=== PATIENT | male | born 1935 | race Caucasian/White ===

== ENCOUNTER 2018-03-17 09:52 | Inpatient (IN) | payer OTHER, MEDICARE ==
--- NOTE | 2018-03-17 10:52 | R.PREADM ---
SCREENING DATE AND TIME 03/17/2018 09:59 (CLAIM APPROVER) ANTICIPATED REHAB ADMISSION DATE 03/19/2018 REFERRING FACILITY [facility] REFERRAL DATE AND TIME 03/17/2018 09:59 (CLAIM APPROVER) ACUTE ADMIT DATE 03/06/2018 Previous Rehabilitation(s): No. ACUTE WELLNESS ASSISTANT/DC RAÚL Payne REFERRING PHYSICIAN [facility] REHAB FACILITY [facility] CLINICAL LIAISON Hitesh Miranda PHYSICIAN REVIEWER Dr. Bear Sousa M.D. MR# [id number] NAME MUNIR CHAO ADDRESS [address] [place] [address] PHONE [facility] [id number] DATE OF 1935 AGE 82 SSN# [id number] GENDER male MARITAL STATUS RACE white ADMIT FROM 02 - [facility] PRE-HOSPITAL LIVING SETTING 01 - Home (private home/apt. board/care, assisted living, assisted, transitional living) HOME TYPE AND DETAILS Type of home: single family house # of steps to enter the residence: 0 # of steps within the residence: 0 # of levels in the residence: 1 PRE-HOSPITAL LIVING WITH Family/Relatives FAMILY SUPPORT Yes PHONE PRIMARY FAMILY CONTACT ON ADM.? no IS PRIMARY FAMILY CONTACT AUTH. REP.? no PHONE 1ST CONTACT ON ADM. no IS 1ST CONTACT AUTH. REP.? no PHONE 2ND CONTACT ON ADM.? no PATIENT EMPLOYMENT STATUS Retired (for age) PATIENT EMPLOYER No Employer PAYOR INFORMATION: 1ST PAYOR NAME Medicare 1ST PAYOR PHONE 1ST PAYOR INJURY/ILLNESS DUE TO ACCIDENT? No ANOTHER LIBERTARIAN RESPONSIBLE? 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 is a 82 yo Right-handed white male. On 03/06/2019 he was admitted to [facility] with diagnosis Spinal stenosis. 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 Pre-morbidly, Pt. was independent/mod-I in Self-Care, Sphincter Control, Transfers Control, and Locom otion; and he had good Sphincter Control. Currently, he has deficits of Balance, Self-Care, Endurance, Safety Awareness, Transfers Control, Com munication, Social Cognition, and Locomotion. Pt. is now referred to [facility] for acute in-patient rehabilitation in order to maximize patient's functional independence in activities of daily living, strength, ROM, and mobi lity. Patient has realistic goal of being discharged at assistance level 6-Laura to reside at Home with Fam francine/Relatives. PAST MEDICAL HISTORY allergic anesthesia arthritis back pain does not excerise falls frequently HEARING DEFICIT hx of guillain-barre syndrome hyperlipidemia pneumonia presence of stent of coronary artery prostate enlargement stroke PAST SURGICAL HISTORY: blepharoplasty bronchoscopy eye surgery fusion, spine, lumbar, interbody, transforaminal approach mediastinoscopy neck surgery (4titanium screws) SHOULDER SURGERY stent 4 heart stents tonsillectomy MEDICATION ALLERGIES: LEVOFLOXACIN INFLUENZA VIRUS VACCINE codeine ENVIRONMENTAL ALLERGIES: - Substance Allergies None Known - Other Allergies None Known CODE STATUS: Full code WEIGHT/HEIGHT/BMI: WEIGHT 159 lbs HEIGHT 5' 6" BMI 25.7 DIET: - Diet Type Regular - Diet - Solid Texture Regular - Diet - Liquid Texture Regular - Tube Feed N/A SKIN DIAGRAM: Incision on Back; extent - small; stage - NS(Not Stageable). Treatment - Per Physician's Orders. REVIEW OF SYSTEMS: - Gen Alert and awake Lying in bed No apparent distress Oriented to: person, time, and place - Vital Signs Vital signs stable, afebrile - CVS RRR VITAL SIGNS Temperature: 98.7 F SBP/DBP: 135/73 Pulse: 75 Resp: 20 Vital signs stable, afebrile CURRENT SPHINCTER CONTROL: Pre-hospital bladder status: continent # of bladder accidents in the last 7 days prior to screenin Pre-hospital bowel status: continent # of bowel accidents in the last 7 days prior to screenin Last Bowel Movement Date: 03/17/2018 DETAILED CURRENT FUNCTIONAL STATUS: - Bladder accident frequency: Ind - No accidents in the past 7 days - Bowel accident frequency: Ind - No accidents in the past 7 days - Walking score based on distance walked: 2(1308ft) FUNCTIONAL STATUS: - Self-Care A. Eating Ind sup B. Grooming Laura sup C. Bathing Laura sup D. Dressing - Upper Laura Umesh E. Dressing - Lower Laura modA F. Toileting Laura Ind - Sphincter Control G: Bladder control Ind Dep H: Bowel control Ind Dep - Transfers Control I. Bed/Chair/Wheelchair Laura modA J. Toilet Laura modA K. Tub/Shower Laura modA - Locomotion L. Walk/Wheelchair (B) Laura modA M. Stairs sup ADNO - Communication N. Comprehension (B) Umesh modA O. Expression (B) sup sup - Social Cognition P. Social Interaction sup sup Q. Problem Solving sup Umesh R. Memory Umesh Umesh - Endurance Fair - Balance Poor - Safety Awareness Poor CURRENT FUNC. DEFICITS: Balance, Self-Care, Endurance, Safety Awareness, Transfers Control, Communication, Social Cognition, and Locomotion THERAPY NOTES FROM ACUTE CARE: Attached. SPECIAL NEEDS: - Safety Concerns Skin breakdown precautions needed due to skin breakdown risk PATIENT NEEDS ACTIVE AND ONGOING THERAPEUTIC INTERVENTION OF MULTIPLE THERAPY DISCIPLINES, INCLUDING: - Orthotics/Prosthetics Orthotic Evaluation. Splinting/Casting. - Occupational Therapy Evaluate and Treat. - Physical Therapy Evaluate and Treat. PATIENT NEEDS CLOSE MEDICAL SUPERVISION BY A REHABILITATION PHYSICIAN FOR: Bowel and Bladder Management Coordination of Treatment Team Wound Care PATIENT REQUIRES 24X7 REHAB NURSING FOR MEDICAL AND FUNCTIONAL MGT. OF THE FOLLOWING DEFICITS: ADL's Ambulation Bowel and Bladder Management Cognition Communication Disease Management Medication Management Patient/Family Education Providing Safe Environment Skin Integrity Transfers PATIENT REQUIRES INTENSIVE, COORDINATED INTERDISCIPLINARY APPROACH TO REHAB: Arranging Home Equipment/Services Discharge Planning Family Intervention/Training Medical Genetics Director/Case Management PATIENT REHAB POTENTIAL: Expected level of measurable improvement will be of a practical value to patient's functional capacit y or adaptations to impairments Has a viable Discharge Plan Medically appropriate; condition is sufficiently stable to participate in intensive rehab program Patient is able and expected to receive 3 hours of individualized therapy daily on at least 5 of ever y 7 days Patient's prognosis for significant practical improvement within a reasonable period of time appears Good DISCHARGE PLAN: - Estimated Length of Stay (days) 16. - Consensus on plan Discharge plan has been discussed with primary caregiver. Patient/Family is in agreement with the ewelina n. Primary caregiver is in agreement with the plan. - Patient/Family Goals Return home with assistance. - Planned Living Setting Upon Discharge Home, to live with Family/Relatives. Transitional Living. RECOMMENDED CARE LEVEL: IRF RECOMMENDATION DETAILS: Recommended Admission to Comprehensive Rehabilitation Program to Increase Functional [place] SCREENER'S COMPLETENESS CONFIRMATION: - Screening Confirmation The patient data collection on this preadmission screening form is finished PHYSICIANS REVIEW AND ADMISSION DETERMINATION Admit - Based on my review of the Pre-Admission Screening results, in my medical judgment and experie nce, I concur with the findings and recommend admission to [facility], as this patient requires an IRF level of care. SIGNATURE PANEL: Clinical Liaison - [electronically] signed by Debi Nguyen on 03/17/2018 at 10:25 (CLAIM APPROVER) Clinical Liaison - [electronically] signed by Hitesh Miranda PT on 03/17/2018 at 10:39 (CLAIM APPROVER) Physician Reviewer - [electronically] signed by Dr. Bear Sousa M.D. on 03/17/2018 at 10:51 (CLAIM APPROVER )
[2018-03-17] MEDS ORDERED: CETIRIZINE HCL 5 MG TABLET PO PRN (18:40)
--- OUTSIDE RECORDS SUMMARY | 2018-03-17 18:40 | XMS REPORT | Continuity of Care Document ---
:1935 Author Organization Interface Problems Problem Status Onset Date Classification Date Comments Source Reported Medications Medication Details Route Status Patient Ordering Order Source Instructions Provider Date Allergies, Adverse Reactions, Alerts Substance Category Reaction Severity Reaction Status Date Comments Source type Reported Immunizations Immunization Date Given Site Status Last Updated Comments Source Results Order Results Value Reference Date Interpretation Comments Source Name Range Vital Signs Vital Sign Value Date Comments Source Encounters Location Location Encounter Encounter Reason Attending ADM DC Status Source Details Type Number For Provider Date Date Visit Outpatient [id number] RONNELL 06/24 Active [facility] [place] Outpatient [id number] RONNELL 11/05 Active [facility] [place] Outpatient [id number] RONNELL 11/05 Active [facility] [place] Outpatient [id number] RONNELL 12/23 Active [facility] [place] Out[place] [id number] RONNELL 02/04 Active [facility] [place] Procedures Procedure Code Date Perfomer Comments Source
--- OUTSIDE RECORDS SUMMARY | 2018-03-17 18:40 | XMS REPORT | Clinical Summary ---
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 coated tablet atorvastatin Take 80 mg by 0 Active (LIPITOR) 40 MG mouth daily. tablet tamsulosin (FLOMAX) Take 0.4 mg by 0 Active 0.4 mg mouth daily. capsule,extended release 24hr clopidogrel Take 75 mg by 0 Active (PLAVIX) 75 mg mouth daily. tablet CYANOCOBALAMIN, Take by mouth. 0 Active VITAMIN B-12, (VITAMIN B-12 ORAL) dutasteride Take 0.5 mg by 0 Active (AVODART) 0.5 mg mouth daily. capsule cholecalciferol, Take by mouth 0 Active vitamin D3, daily. (VITAMIN D3 ORAL) MAGNESIUM OXIDE Take by mouth 0 Active ORAL daily. traMADol (ULTRAM) Take 50 mg by 0 Active 50 mg tablet mouth every 8 (eight) hours as needed for moderate pain. gabapentin Take 1 tablet 90 tablet 0 04/15/19 Active (NEURONTIN) 600 mg (600 mg total) by 9 19 tablet mouth 3 (three) times a day for 30 days. ondansetron Infuse 2 mL (4 mg 20 mL 0 Active (ZOFRAN) 4 mg/2 mL total) into a 9 injection venous catheter every 8 (eight) hours as needed for nausea or vomiting. ondansetron ODT Take 1 tablet (4 0 04/15/19 Active (ZOFRAN-ODT) 4 MG mg total) by 19 disintegrating mouth every 8 tablet (eight) hours as needed for nausea or vomiting for up to 30 days. cetirizine (ZyrTEC) Take 1 tablet (5 0 03/16/19 Active 5 MG tablet mg total) by 9 20 mouth daily as needed for allergies. ipratropium-albuter Take 3 mL by 0 Active ol (DUO-NEB) nebulization 9 0.5-2.5 mg/mL every 6 (six) nebulizer hours while awake. guaiFENesin Take 1 tablet 0 Active (MUCINEX) 600 mg (600 mg total) by 9 tablet extended mouth 2 (two) release 12hr times a day. enoxaparin Inject 0.4 mL (40 0 Active (LOVENOX) 40 mg/0.4 mg total) under 9 mL syringe the skin daily. bisacodyl Take 1 tablet (5 30 tablet 0 04/15/19 Active (DULCOLAX) 5 mg EC mg total) by 9 19 tablet mouth daily as needed for constipation for up to 30 days. naloxone (NARCAN) Infuse 0.5 mL 1 mL 0 Active 0.4 mg/mL injection (0.2 mg total) 9 into a venous catheter once as needed for respiratory depression (as needed for RR rate 8 per minute). pantoprazole Take 1 tablet (40 0 Active (PROTONIX) 40 MG EC mg total) by 9 tablet mouth daily. methocarbamol Take 1 tablet 0 04/16/19 Active (ROBAXIN) 500 MG (500 mg total) by 9 19 tablet mouth every 8 (eight) hours as needed for muscle spasms for up to 30 days. sodium chloride 1 Take 2 tablets (2 120 tablet 11 03/17/19 Active gram tablet g total) by mouth 11 27 2 (two) times a day with meals. HYDROcodone-acetami Take 1 tablet by 0 03/27/19 Active nophen (NORCO) mouth every 4 9 19 10-325 mg per (four) hours as tablet needed for moderate pain for up to 10 days. Max Daily Amount: 6 tablets carvedilol (COREG) Take 3.125 mg by 0 03/06/20 Discontinued 3.125 MG tablet mouth nightly. 18 gabapentin Take 1,800 mg by 0 02/28/20 Discontinued (NEURONTIN) 300 mg mouth 3 (three) 18 capsule times a day. [address] 1 patch on 0 02/28/20 Discontinued (DURAGESIC) 25 the skin every 18 mcg/hr third day. GABAPENTIN ORAL Take 900 mg by 0 03/17/19 Discontinued mouth 3 (three) 19 times a day. Takes 2--900mg capsules TID hydrocodone/acetami Take by mouth 0 03/17/19 Discontinued nophen (NORCO ORAL) every 8 (eight) 19 hours as needed. sodium chloride 1 Take 1 tablet (1 90 tablet 0 03/17/19 Discontinued gram tablet g total) by mouth 9 19 3 (three) times a day with meals for 7 days. methocarbamol Take 1 tablet 90 tablet 0 03/17/19 Discontinued (ROBAXIN) 500 MG (500 mg total) by 9 19 tablet mouth every 8 (eight) hours as needed for muscle spasms for up to 30 days. 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 03/06/2018 - Hospital Encounter General Internal Etta, Degenerative lumbar 03/17/2018 Medicine Gil spinal stenosis MD Ruby 02/27/2018 Pre-Admit Testing Pre-Admission Etta, Preop testing Appointment Testing Gil (Primary Dx) MD Ruby 02/09/2018 Hospital Encounter Radiology [place], Lumbar radiculopathy Gil Beltran MD 02/09/2018 Hospital Encounter Radiology [place], Lumbar radiculopathy Gil Beltran MD 01/26/2018 Transcribe Orders Radiology [place], Lumbar radiculopathy Gil (Primary Dx) MD Ruby 01/08/2018 Hospital Encounter Radiology [place], Lumbar radiculopathy Gil Beltran MD 01/08/2018 Hospital Encounter Radiology [place], Radiculopathy, Gil unspecified spinal MD Ruby [facility] 01/08/2018 Transcribe Orders Radiology [place], Lumbar radiculopathy Gil (Primary Dx) MD Ruby 01/08/2018 Transcribe Orders Access [place], Radiculopathy, Gil unspecified spinal MD Ruby [facility] (Primary Dx) 12/25/2017 Transcribe Orders Radiology [place], Lumbar radiculopathy Gil (Primary Dx) MD Ruby 07/01/2017 Hospital Encounter Radiology [place], Lumbar radiculopathy Gil Beltran MD 07/01/2017 Transcribe Orders Access [place], Betsy Layne MD Ruby 07/01/2017 Transcribe Orders Access [place], Lumbar radiculopathy Betsy Layne (Primary Dx) MD Ruby 04/02/2017 Hospital Encounter Radiology [place], Lumbar radiculopathy Betsy Laynealphonso Beltran MD 04/02/2017 Transcribe Orders Access [place], Lumbar radiculopathy Gil (Primary Dx) MD Ruby after 03/16/2017 Family History Medical History Relation Name Comments Emphysema Brother Heart disease Brother Cerebral aneurysm Father Emphysema Mother Relation Name Status Comments Brother Father (Age 52) Mother (Age 87) Social History Tobacco Use Types Packs/Day Years Used Date Former Smoker 1 Quit: 02/21/1973 Smokeless Tobacco: Former User Quit: 2005 Alcohol Use Drinks/Week oz/Week Comments Yes occasionally Sex Assigned at Date Recorded Not on file Job Start Date Occupation Industry Not on file Not on file Not on file Travel History Travel Start Travel End No recent travel history available. Last Filed Vital Signs Vital Sign Reading Time Taken Blood Pressure 105/54 03/17/2018 3:00 PM SLIP MIXER Pulse 96 03/17/2018 3:00 PM SLIP MIXER Temperature 37.2 C (98.9 F) 03/17/2018 7:48 AM SLIP MIXER Respiratory Rate 17 03/17/2018 3:00 PM SLIP M[facility]ER Oxygen Saturation 97% 03/17/2018 3:00 PM SLIP MIXER Inhaled Oxygen Concentration - - Weight 72.4 kg (159 lb 11.2 oz) 03/06/2018 5:25 AM SLIP MIXER Height 167.6 cm (5' 6") 03/06/2018 5:25 AM SLIP MIXER Body Mass Index 25.78 03/06/2018 5:25 AM SLIP MIXER Plan of Treatment Health Maintenance Due Date Last Done Comments SHINGLES VACCINES (1 of 2) 12/19/1985 PNEUMOCOCCAL POLYSACCHARIDE VACCINE AGE 65 AND OVER 12/19/2000 PNEUMOCOCCAL-13 12/19/2000 INFLUENZA VACCINE 10/08/2017 Implants Implanted Type Area Karate Teacher Device Shelf Model / Serial / Identifier Expiration Lot Date System Spine Selnt For Dural Selng Exact 5ml Duraseal - [id number] Cardiovascular N/A: INTEGRA 03/09/2019 [id number] / Implanted: Qty: 1 on 03/06/2018 by Gil Quiles MD Implants N/ A LIFESCIENCE / NEURO [id number] Kit Bone Grft Lmbr Tprd 2.8ml Sm Infuse - [id number] Human Tissue N/A: MEDTRONIC SPINAL 05/07/2018 [id number] / Implanted: Qty: 1 on 02/04/2017 by Gil Quiles MD Implants N/ A AND BIOLOGICS / [id number] Kit Putty Bone 1.5ml Mastergraft - [id number] Human Tissue N/A: MEDTRONIC SPINAL 03/09/2020 [id number] / Implanted: Qty: 1 on 02/04/2017 by Gil Quiles MD Implants N/ A AND BIOLOGICS / [id number] Drafton Dbm Orthoblend Small Defect 5cc - [id number] - [id number] Human Tissue N/A: MEDTRONIC SPINAL 07/01/2018 [id number] / Implanted: Qty: 1 on 02/04/2017 by Gil Quiles MD Implants N/ A AND BIOLOGICS [id number] / [id number] Graft Bone Tissue Ros Anguiano 10.6 - [id number] - [id number] Human Tissue N/A: MUSCULOSKELETAL 11/14/2019 [id number] / Implanted: Qty: 1 on 03/06/2018 by Gil Quiles MD Implants N/ A TRANSPLANT [id number] / FOUNDATION LOT NA Bone Graft Magnifuse Sc 1 X 10cm - [id number] - [id number] Human Tissue N/A : MEDTRONIC SPINAL 11/20/2019 [id number] / Implanted: Qty: 1 on 03/06/2018 by Gil Quiles MD Implants N/ A AND BIOLOGICS [id number] / LOT NA Kit Bone Grft Lmbr Tprd 2.8ml Sm Infuse - [id number] Human Tissue N/A: MEDTRONIC SPINAL 06/07/2018 [id number] / Implanted: Qty: 1 on 03/06/2018 by Gil Quiles MD Implants N/ A AND BIOLOGICS / [id number] Spacer [id number] Elevate X-Francesca 28x8mm - [id number] [id number] IMPLANT N/A: MEDTRONIC 09/05/2024 [id number] / Implanted: Qty: 1 on 02/04/2017 by Gil Quiles MD DEVICES N/A SOFAMOR DANEK / [id number] 30mm Capped George 4.75mm Ccm - [id number] IMPLANT N/A: MEDTRONIC [id number] / Implanted: Qty: 2 on 02/04/2017 by Gil Quiles MD DEVICES N/A SOFAMOR DANEK / Cdh Fenestrated Screw 7.5mm &215; 40mm - [id number] [id number] IMPLANT N/A: MEDTRONIC [id number] / Implanted: 03/06/2018 (Quantity not on file) DEVICES N/A SOFAMOR DANEK / Screw [id number] Bs Cnmas 7.5x70 T/C - [id number] [id number] IMPLANT N/A: MEDTRONIC [id number] / Implanted: 03/06/2018 (Quantity not on file) DEVICES N/A SOFAMOR DANEK / Screw [id number] Bs Cnmas 7.5x80 T/C - [id number] [id number] IMPLANT N/A: MEDTRONIC [id number] / Implanted: 03/06/2018 (Quantity not on file) DEVICES N/A SOFAMOR DANEK / Mas [id number] 5.5/6.0 Fenstrtd 7.5x45 - [id number] IPM IMPLANT N/A: MEDTRONIC [id number] / Implanted: 03/06/2018 (Quantity not on file) DEVICES N/A SOFAMOR DANEK / George [id number] 5.5 Ccm Ns Curv 60mm - [id number] [id number] IMPLANT N/A: MEDTRONIC [id number] / Implanted: 03/06/2018 (Quantity not on file) DEVICES N/A SOFAMOR DANEK / Set Screw [id number] 5.5 Ti Ns Brk Off - [id number] Orthopedic N/A: MEDTRONIC [id number] / Implanted: 03/06/2018 (Quantity not on file) Trauma N/A SOFAMOR DANEK / Implants Set Screw 4.75 Solera Perc Ti - [id number] Spinal N/A: MEDTRONIC SPINAL [id number] / Implanted: Qty: 4 on 02/04/2017 by Gil Quiles MD Implants N/ A AND BIOLOGICS / Screw Mas 4.75 Ext Tab Yudith 7.5 X 45 - [id number] Spinal N/A: MEDTRONIC SPINAL [id number] / Implanted: Qty: 2 on 02/04/2017 by Gil Quiles MD Implants N/ A AND BIOLOGICS / Screw Mas 4.75 Ext Tab Yudith 7.5 X 35 - [id number] Spinal N/A: MEDTRONIC SPINAL [id number] / Implanted: Qty: 2 on 02/04/2017 by Gil Quiles MD Implants N/ A AND BIOLOGICS / Cement Screw Fenestrated - [id number] Spinal N/A: MEDTRONIC SPINAL 2018 [id number] / Implanted: 03/06/2018 (Quantity not on file) Implants N/A AND BIOLOGICS [id number] / [id number] Kit Hemostatic Matrix W/Thrombin 8ml Surgiflo - [id number] Surgical N/A: ETHICON US- 05/07/2018 [id number] / Implanted: Qty: 1 on 02/04/2017 by Gil Quiles MD Implants; N/ A / Expanders; [id number] Extenders; Surgical Wires Pin Surgcl Percutns 100mm - [id number] Surgical N/A: MEDTRONIC 11/15/2019 [id number] / Implanted: Qty: 1 on 02/04/2017 by Gil Quiles MD Implants; N/ A NAVIGATION / Expanders; StyroPower [id number] Extenders; Surgical Wires Ros Martin Md Bone Graft 5.3cc - [id number] - [id number] Surgical N/A: MUSCULOSKELETAL 01/09/2018 [id number] / Implanted: Qty: 1 on 02/04/2017 by Gil Quiles MD Implants; N/ A TRANSPLANT [id number] / Expanders; FOUNDATION [id number] Extenders; Surgical Wires Kit Hemostatic Matrix W/Thrombin 8ml Surgiflo - [id number] Surgical N/A: ETHICON US- 05/07/2018 [id number] / Implanted: Qty: 1 on 02/04/2017 by Gil Quiles MD Implants; N/ A / Expanders; [id number] Extenders; Surgical Wires Kit Hemostatic Matrix W/Thrombin 8ml Surgiflo - [id number] Surgical N/A: ETHICON US- 05/07/2018 [id number] / Implanted: Qty: 1 on 02/04/2017 by Gil Quiles MD Implants; N/ A / Expanders; [id number] Extenders; Surgical Wires Procedures Procedure Name Priority Date/Time Associated Comments Diagnosis SODIUM LEVEL Routine 03/17/2018 12:55 Results for this PM [facility]IP [facility]ER procedure are in the results section. ESTIMATED GFR Routine 03/17/2018 4:00 Results for this AM [facility] procedure are in the results section. CBC WITH PLATELET AND Routine 03/17/2018 4:00 Results for this DIFFERENTIAL AM [facility] procedure are in the results section. BASIC METABOLIC PANEL Routine 03/17/2018 4:00 Results for this AM [facility] procedure are in the results section. URINALYSIS SCREEN AND STAT 03/16/2018 2:58 Results for this MICROSCOPY, WITH REFLEX TO PM [facility]ER procedure are in CULTURE the results section. GRAM STAIN STAT 03/16/2018 2:58 Results for this PM [facility] procedure are in the results section. ESTIMATED GFR STAT 03/16/2018 7:35 Results for this AM [facility] procedure are in the results section. BASIC METABOLIC PANEL STAT 03/16/2018 7:35 Results for this AM [facility] procedure are in the results section. BETA TRANSFERRIN LEVEL STAT 03/13/2018 11:17 Results for this AM [facility] procedure are in the results section. XR LUMBAR SPINE 2 OR 3 VW Routine 03/12/2018 1:44 Results for this PM [facility] procedure are in the results section. CT CHEST WO CONTRAST STAT 03/10/2018 8:46 Results for this PM [facility] procedure are in the results section. ESTIMATED GFR Routine 03/10/2018 3:32 Results for this AM [facility] procedure are in the results section. B NATRIURETIC PEPTIDE Routine 03/10/2018 3:32 Results for this AM [facility] procedure are in the results section. HC COMPLETE BLD COUNT Routine 03/10/2018 3:32 Results for this W/AUTO DIFF AM [facility] procedure are in the results section. BASIC METABOLIC PANEL Routine 03/10/2018 3:32 Results for this AM [facility] procedure are in the results section. XR CHEST 1 VW PORTABLE STAT 03/09/2018 12:10 Results for this PM [facility] procedure are in the results section. ESTIMATED GFR Routine 03/08/2018 1:15 Results for this AM [facility] procedure are in the results section. BASIC METABOLIC PANEL Routine 03/08/2018 1:15 Results for this AM [facility] procedure are in the results section. HC COMPLETE BLD COUNT Routine 03/08/2018 1:13 Results for this W/AUTO DIFF AM [facility] procedure are in the results section. TRANSFUSE RED BLOOD CELLS Routine 03/08/2018 12:19 AM [facility]ER TROPONIN Timed 03/08/2018 12:00 Results for this AM [facility] procedure are in the results section. URINALYSIS SCREEN AND Routine 03/07/2018 7:40 Results for this MICROSCOPY, WITH REFLEX TO PM [facility] procedure are in CULTURE the results section. URINE CULTURE Routine 03/07/2018 7:40 Results for this PM [facility] procedure are in the results section. GRAM STAIN Routine 03/07/2018 7:40 Results for this PM [facility] procedure are in the results section. TROPONIN Timed 03/07/2018 6:21 Results for this PM [facility] procedure are in the results section. ECG 12-LEAD STAT 03/07/2018 9:30 Results for this AM [facility] procedure are in the results section. PREPARE RBC Timed 03/07/2018 8:26 Results for this AM [facility] procedure are in the results section. PREPARE RBC Timed 03/07/2018 8:26 Results for this AM [facility] procedure are in the results section. ESTIMATED GFR STAT 03/07/2018 8:26 Results for this AM [facility] procedure are in the results section. TYPE AND SCREEN Timed 03/07/2018 8:26 Results for this AM [facility] procedure are in the results section. BASIC METABOLIC PANEL STAT 03/07/2018 8:26 Results for this AM [facility] procedure are in the results section. TROPONIN STAT 03/07/2018 8:26 Results for this AM [facility] procedure are in the results section. HC COMPLETE BLD COUNT Routine 03/07/2018 3:55 Results for this W/AUTO DIFF AM [facility] procedure are in the results section. ESTIMATED GFR Routine 03/07/2018 12:00 Results for this AM [facility] procedure are in the results section. BASIC METABOLIC PANEL Routine 03/07/2018 12:00 Results for this AM [facility] procedure are in the results section. SURGICAL PATHOLOGY REQUEST Routine 03/06/2018 3:41 Results for this PM [facility] procedure are in the results section. THROMBOELASTOGRAPH Routine 03/06/2018 2:58 Results for this PM [facility] procedure are in the results section. GLUCOSE LEVEL, SYRINGE STAT 03/06/2018 1:01 Results for this PM [facility] procedure are in the results section. MAGNESIUM LEVEL STAT 03/06/2018 1:01 Results for this PM [facility] procedure are in the results section. IONIZED CALCIUM, ARTERIAL STAT 03/06/2018 1:01 Results for this PM [facility] procedure are in the results section. HEMOGLOBIN, SYRINGE STAT 03/06/2018 1:01 Results for this PM [facility] procedure are in the results section. POTASSIUM, SYRINGE STAT 03/06/2018 1:01 Results for this PM [facility] procedure are in the results section. SODIUM LEVEL, SYRINGE STAT 03/06/2018 1:01 Results for this PM [facility] procedure are in the results section. ARTERIAL BLOOD GAS STAT 03/06/2018 1:01 Results for this PM [facility] procedure are in the results section. LACTIC ACID, SYRINGE STAT 03/06/2018 1:01 Results for this PM [facility] procedure are in the results section. THROMBOELASTOGRAPH STAT 03/06/2018 11:51 Results for this AM [facility] procedure are in the results section. OR FL < 1 HOUR Routine 03/06/2018 11:45 Results for this AM [facility] procedure are in the results section. OR FL > 1 HOUR Routine 03/06/2018 11:10 Results for this AM [facility] procedure are in the results section. WI AN ELECTIVE Routine 03/06/2018 9:41 ENDOTRACHEAL AIRWAY AM [facility] Procedure Note - Alison Hunt CRNA - 03/06/2018 9:41 AM SLIP [facility]ER Airway Date/Time: 03/06/2018 7:19 AM Performed by: Alison Hunt CRNA Authorized by: Fabricio Schaefer MD Location: OR Urgency: Elective Difficult Airway: No Anesthesiologist: Fabricio Schaefer MD Performed by: anesthesiologist Preoxygenated with 100% O2: Yes C-spine Precautions Maintained Throughout: No Mask Ventilation: Easy mask (With 100 mm OPA) Final Airway Type: Endotracheal airway Final Endotracheal Airway: ETT Cuffed: Yes Technique Used: Direct laryngoscopy Devices/Methods Used in Placement: Intubating stylet Insertion Site: Oral Blade Type: Reed Laryngoscope Blade/Videolaryngoscope Blade Size: 2 ETT Size (mm): 8.0 Cuff at minimum occlusion pressure: Yes Measured from: Gums ETT to Gums (cm): 24 Placement Verified by: CO2 detection, direct visualization and equal breath sounds Rapid Sequence Induction (RSI): No Modified RSI: No Number of Attempts at Approach: 2 Eyes taped shut prior to airway manipulation. DLX 1 per FURNACE MECHANIC unsuccessful, DL X1 per MDA successful. TRANSFUSE RED BLOOD CELLS Routine 03/06/2018 9:22 AM [facility]ER MAGNESIUM LEVEL STAT 03/06/2018 9:18 AM [facility]IP M[facility]ER IONIZED CALCIUM, ARTERIAL STAT 03/06/2018 9:18 AM SLIP MIXER GLUCOSE LEVEL, SYRINGE STAT 03/06/2018 9:18 AM SLIP MIXER HEMOGLOBIN, SYRINGE STAT 03/06/2018 9:18 AM SLIP MIXER SODIUM LEVEL, SYRINGE STAT 03/06/2018 9:18 AM SLIP MIXER LACTIC ACID, SYRINGE STAT 03/06/2018 9:18 AM SLIP MIXER POTASSIUM, SYRINGE STAT 03/06/2018 9:18 AM SLIP MIXER ARTERIAL BLOOD GAS STAT 03/06/2018 9:18 AM SLIP MIXER GLUCOSE LEVEL, SYRINGE STAT 03/06/2018 8:43 AM SLIP MIXER IONIZED CALCIUM, ARTERIAL STAT 03/06/2018 8:43 AM SLIP MIXER SODIUM LEVEL, SYRINGE STAT 03/06/2018 8:43 AM SLIP MIXER HEMOGLOBIN, SYRINGE STAT 03/06/2018 8:43 AM SLIP MIXER POTASSIUM, SYRINGE STAT 03/06/2018 8:43 AM SLIP MIXER ARTERIAL BLOOD GAS, STAT 03/06/2018 8:43 AM [facility]IP M[facility]ER Results for this CORRECTED procedure are in the results section. ARTERIAL LINE Routine 03/06/2018 7:56 AM [facility]ER Procedure Note - Fabricio Schaefer MD - 03/06/2018 7:56 AM [facility]IP M[facility]ER Arterial line Performed by: Fabricio Schaefer MD Authorized by: Fabricio Schaefer MD Start Time: 03/06/2018 7:24 AM End Time: 03/06/2018 7:30 AM Pre-procedure: patient identified, IV checked, site and side verified, risks and benefits discussed, procedure verified, surgical consent complete, patient position confirmed, monitors and equipment checked and pre-op evaluation complete MSBT: antiseptic used, all elements of maximal sterile barrier technique followed, hand hygiene performed, cap/gown used by other personnel and solutions labeled TIme Out Performed: 03/06/2018 7:24 AM Indications: Indications: multiple ABGs and hemodynamic monitoring Anesthesia: Anesthesia: General Procedure Details: Arterial Line placement: Placed post induction Line placement site: Radial Line placement side: Left Arterial line gauge: 20 G Number of attempts: 2 Ultrasound guidance used: No Post-procedure: Post-procedure: Sterile dressing applied Post procedure circulation, sensation, movement: Normal and unchanged Patient tolerance: Patient tolerated the procedure well with no immediate complications XR LUMBAR SPINE Routine 03/06/2018 7:55 AM Results for this 1 VW SLIP MIXER procedure are in the results section. LAMINECTOMY, 03/06/2018 7:15 AM Degenerative lumbar LUMBAR SLIP MIXER spinal stenosis Case Notes PRONE POSITION, DR PARKER NIÑO SURGEON, [place] TABLE, O-ARM, STEALTH, ULTRASOUND, DOUGHNUT HEADREST, SOLERA (MEDTRONIC, INFUSE (MEDTRONIC, EMG NEURO MONOTORING , REQ BLOCKER POLISHING, DR PARKER ABAD Special Needs PRONE POSITION, DR PARKER NIÑO SURGEON, [place] TABLE, O-ARM, STEALTH, ULTRASOUND, DOUGHNUT HEADREST, SOLERA (MEDTRONIC, INFUSE (MEDTRONIC, EMG NEURO MONOTORING , REQ BLOCKER POLISHING, DR PARKER ABAD FUSION, SPINE, LUMBAR, 03/06/2018 7:15 AM SLIP MIXER Degenerative lumbar spinal POSTERIOR APPROACH stenosis Case Notes PRONE POSITION, DR PARKER NIÑO SURGEON, [place] TABLE, O-ARM, STEALTH, ULTRASOUND, DOUGHNUT HEADREST, SOLERA (MEDTRONIC, INFUSE (MEDTRONIC, EMG NEURO MONOTORING , REQ BLOCKER POLISHING, DR PARKER ABAD Special Needs PRONE POSITION, DR PARKER NIÑO SURGEON, [place] TABLE, O-ARM, STEALTH, ULTRASOUND, DOUGHNUT HEADREST, SOLERA (MEDTRONIC, INFUSE (MEDTRONIC, EMG NEURO MONOTORING , REQ BLOCKER POLISHING, DR PARKER ABAD ECG 12-LEAD Routine 02/27/2018 1:43 Preop testing Results for this PM [facility] procedure are in the results section. PREPARE RBC Routine 02/27/2018 1:30 Results for this PM [facility] procedure are in the results section. ESTIMATED GFR Routine 02/27/2018 1:30 Results for this PM [facility] procedure are in the results section. BASIC METABOLIC PANEL Routine 02/27/2018 1:30 Preop testing Results for this PM [facility]ER procedure are in the results section. HC COMPLETE BLD COUNT Routine 02/27/2018 1:30 Preop testing Results for this W/AUTO DIFF PM [facility]ER procedure are in the results section. TYPE AND SCREEN Routine 02/27/2018 1:30 Preop testing Results for this PM [facility]ER procedure are in the results section. PARTIAL THROMBOPLASTIN Routine 02/27/2018 1:30 Preop testing Results for this TIME (PTT) PM [facility]ER procedure are in the results section. PROTHROMBIN TIME WITH Routine 02/27/2018 1:30 Preop testing Results for this INR PM [facility] M[facility]ER procedure are in the results section. CT POST MYELOGRAM Routine 02/09/2018 11:02 Lumbar radiculopathy Results for this LUMBAR AM [facility] procedure are in the results section. IR MYELOGRAM LUMB INCL Routine 02/09/2018 10:28 Lumbar radiculopathy Results for this INJ W S&I AM [facility]ER procedure are in the results section. XR LUMBAR SPINE Routine 01/08/2018 1:20 Radiculopathy, Results for this COMPLETE W BENDING PM CDT unspecified spinal procedure are in region the results section. XR SPINE SCOLIOSIS 2-3 Routine 01/08/2018 1:12 Lumbar radiculopathy Results for this VIEWS PM CDT procedure are in the results section. MRI LUMBAR SPINE WO Routine 01/02/2018 12:00 Lumbar radiculopathy Results for this CONTRAST PM CDT procedure are in the results section. XR LUMBAR SPINE 2 OR 3 Routine 07/01/2017 12:01 Lumbar radiculopathy Results for this VW PM CDT procedure are in the results section. XR LUMBAR SPINE 2 OR 3 Routine 04/02/2017 11:04 Lumbar radiculopathy Results for this VW AM [facility] procedure are in the results section. after 03/16/2017 Results Sodium level (03/17/2018 12:55 PM SLIP MIXER) Sodium 137 135 - 148 mEq/L [facility] Specimen Plasma specimen Performing Organization Address City/[facility] Centercode Phone Number [facility] DEPARTMENT OF PATHOLOGY AND [address] [place], [place] [phone] [address] [address] Estimated GFR (03/17/2018 4:00 AM SLIP MIXER)Only the most recent of7 resultswithin the time period is included. Estimated GFR 70 mL/min/1.[address] [facility] Comment: HOSPITAL CatergoryUnitsInterpretation G1 >=90 Normal or high G2 60-89Mildly decreased W8d20-94Xightt to moderately decreased V1q02-23Nnlgusfibw to severely decreased G4 15-29Severely decreased G5 <15Kidney failure The eGFR was calculated using the Chronic Kidney Disease Epidemiology Collaboration (CKD-EPI) equation. Interpretation is based on recommendations of the National Kidney Foundation-Kidney Disease Outcomes Quality Initiative (NKF-KDOQI) published in 2014. Specimen Plasma specimen Performing Organization Address City/[facility]/Zipcode Phone Number [facility] DEPARTMENT OF PATHOLOGY AND [address] [place] [address] [address] CBC with platelet and differential (03/17/2018 4:00 AM SLIP MIXER)Only the most recent of5 resultswithin the time period is included. WBC 18.69 (H) 4.50 - 11.00 k/uL [facility] RBC 3.69 (L) 4.40 - 6.00 m/uL [facility] HGB 10.5 (L) 14.0 - 18.0 g/dL [facility] HCT 33.3 (L) 41.0 - 51.0 % [facility] MCV 90.2 82.0 - 100.0 fL [facility] MCH 28.5 27.0 - 34.0 pg [facility] MCHC 31.5 31.0 - 37.0 g/dL [facility] RDW - SD 43.3 37.0 - 55.0 fL [facility] MPV 9.9 8.8 - 13.2 fL [facility] Platelet count 463 (H) 150 - 400 k/uL [facility] Nucleated RBC 0.00 /100 WBC [facility] Neutrophils 71.1 (H) 39.0 - 69.0 % [facility] Lymphocytes 16.3 (L) 25.0 - 45.0 % [facility] Monocytes 8.2 0.0 - 10.0 % [facility] Eosinophils 0.4 0.0 - 5.0 % [facility] Basophils 0.3 0.0 - 1.0 % [facility] Immature granulocytes 3.7 (H)Comment: 0.0 - 1.0 % [facility] "Immature [facility] granulocytes" (promyelocytes, myelocytes, metamyelocytes) Specimen Blood Performing Organization Address City/State/Zipcode Phone Number [facility] DEPARTMENT OF PATHOLOGY AND [address] [place], [place] [phone] [place] [phone] Basic metabolic panel (03/17/2018 4:00 AM SLIP MIXER)Only the most recent of7 resultswithin the time period is included. Sodium 132 (L) 135 - 148 mEq/L [facility] Potassium 4.4 3.5 - 5.0 mEq/L [facility] Chloride 98 98 - 112 mEq/L [facility] CO2 22 (L) 24 - 31 mEq/L [facility] Anion gap 12@ANIO 7 - 15 mEq/L [facility] BUN 31 (H) 8 - 23 mg/dL [facility] Creatinine 1.00 0.70 - 1.20 mg/dL [facility] Glucose 137 (H) 65 - 99 mg/dL [facility] Calcium 9.1 8.8 - 10.2 mg/dL [facility] Specimen Plasma specimen Performing Organization Address City/[facility] Centercode Phone Number [facility] DEPARTMENT OF PATHOLOGY AND [address] [place] [id number] [place] [phone] Urinalysis screen and microscopy, with reflex to culture (03/16/2018 2:58 PM SLIP MIXER)Only the most recent of2 resultswithin the time period is included. Specimen site Catheterized [facility] Color, UA Yellow [facility] Appearance, UA Clear [facility] Specific gravity, UA 1.023 1.001 - 1.035 [facility] pH, UA 5.0 5.0 - 8.5 [facility] Protein, UA Negative Negative [facility] Glucose, UA Negative Negative [facility] Ketones, UA Negative Negative [facility] Bilirubin, UA Negative Negative [facility] Blood, UA Moderate (A) Negative [facility] Nitrite, UA Negative Negative [facility] Urobilinogen, UA <2.0 <2.0 [facility] Leukocyte esterase, UA Trace (A) Negative [facility] WBC, UA 5 (H) 0 - 1 /HPF [facility] RBC, UA 17 (H) 0 - 5 /HPF [facility] Bacteria, UA Few None seen [facility] Yeast, UA None seen [facility] Yeast with pseudohyphae, UA None seen [facility] Hyaline casts, UA 4 /LPF [facility] Specimen Urine Performing Organization Address City/[facility] Centercode Phone Number [facility] DEPARTMENT OF PATHOLOGY AND [address] [place] [address] [address] Gram stain (03/16/2018 2:58 PM SLIP MIXER)Only the most recent of2 resultswithin the time period is included. Gram stain result No WBC's or organisms seen. [facility] Comment: Specimen Information Specimen Source: Urine Specimen Site: Catheterized Specimen Urine - Catheterized Performing Organization Address City/State/Zipcode Phone Number [facility] DEPARTMENT OF PATHOLOGY AND [address] [place] [address] Beta transferrin level (03/13/2018 11:17 AM SLIP MIXER) Beta-2 transferrin See below [facility] Comment: No beta-2 transferrin seen. Reviewed by Dr. Jesse Chavez MD. PhD. TRFB results called to and read back by DAVIAN Gonzalez/[email or web address] (name/location) at03/13/201817:38 (date/time) by Dr. Scott FUENTES,PhD. Specimen Fluid Performing Organization Address City/[facility]/Zipcode Phone Number [facility] DEPARTMENT OF PATHOLOGY AND [address] [place] [address] XR Lumbar Spine 2 Or 3 Vw (03/12/2018 1:44 PM SLIP MIXER)Only the most recent of3 resultswithin the time period is included. Narrative Performed At EXAMINATION:XR LUMBAR SPINE 2 OR 3 VW [facility] COMPARISON:March 06, 2018. CLINICAL HISTORY:L S-spine fusionfollow up COMMENTS:Frontal and lateral views of the lumbar spine are provided. FINDINGS:There are pedicle screws at L4 and L5 which connect to sacroiliac screws. There is disc spacer with metallic markers at L5-S1. There is cement in place at the L4 vertebral body. There is minimal anterior subluxation of L3 upon L4. There is mild spondylosis anteriorly in lumbar spine. There is mild curvature of the lower lumbar spine convex towards the left side. Posterior drain is noted. IMPRESSION:Postoperative change. [id number] Procedure Note Interface, Radiology Results Incoming - 03/12/2018 1:55 PM SLIP MIXER EXAMINATION: XR LUMBAR SPINE 2 OR 3 VW COMPARISON: March 06, 2018. CLINICAL HISTORY: L S-spine fusion follow up COMMENTS: Frontal and lateral views of the lumbar spine are provided. FINDINGS: There are pedicle screws at L4 and L5 which connect to sacroiliac screws. There is disc spacer with metallic markers at L5-S1. There is cement in place at the L4 vertebral body. There is minimal anterior subluxation of L3 upon L4. There is mild spondylosis anteriorly in lumbar spine. There is mild curvature of the lower lumbar spine convex towards the left side. Posterior drain is noted. IMPRESSION: Postoperative change. [id number] Performing Organization Address City/State/Zipcode Phone Number [facility] [address] [place] [address] CT Chest Wo Contrast (03/10/2018 8:46 PM SLIP MIXER) Narrative Performed At Examination:CT CHEST WO CONTRAST [facility] Clinical History: Shortness of breath, h o enlarged lymph nodes Comparison: None. Findings: CT scans are performed using radiation dose reduction techniques.Technical factors are evaluated and adjusted to ensure appropriate moderation of exposure.Automated dose management technology is applied to adjust radiation exposure while achieving a diagnostic quality image. CT scan of the chest was performed without intravenous contrast. Patient positioning slightly limits the study. The patient is lying on his right side. There is some dependent atelectasis is noted in the right upper lobe. No pleural effusion is seen. No pulmonary mass or nodule is seen. No mediastinal lymphadenopathy is seen. No pneumothorax is seen. The visualized upper abdomen shows gallstones in the gallbladder. Pancreas is slightly fatty replaced. The visualized bony structures shows no acute abnormality. IMPRESSION: 1. Right side dependent atelectasis. Otherwise no acute abnormality identified in the chest. 2. Cholelithiasis without CT evidence for cholecystitis. [facility]-[id number] Procedure Note Interface, Radiology Results Incoming - 03/10/2018 9:26 PM SLIP MIXER Examination: CT CHEST WO CONTRAST Clinical History: Shortness of breath, h o enlarged lymph nodes Comparison: None. Findings: CT scans are performed using radiation dose reduction techniques. Technical factors are evaluated and adjusted to ensure appropriate moderation of exposure. Automated dose management technology is applied to adjust radiation exposure while achieving a diagnostic quality image. CT scan of the chest was performed without intravenous contrast. Patient positioning slightly limits the study. The patient is lying on his right side. There is some dependent atelectasis is noted in the right upper lobe. No pleural effusion is seen. No pulmonary mass or nodule is seen. No mediastinal lymphadenopathy is seen. No pneumothorax is seen. The visualized upper abdomen shows gallstones in the gallbladder. Pancreas is slightly fatty replaced. The visualized bony structures shows no acute abnormality. IMPRESSION: 1. Right side dependent atelectasis. Otherwise no acute abnormality identified in the chest. 2. Cholelithiasis without CT evidence for cholecystitis. [facility]-[id number] Performing Organization Address City/[facility]/Zipcode Phone Number [facility] [address] [place] [address] B natriuretic peptide (03/10/2018 3:32 AM SLIP MIXER) BNP SEE COMMENT 0 - 100 pg/mL [facility] Comment: Footnote--------- Unable to perform testing, specimen is _QNS.Recollect requested for BNP_ (tests)._RN IKER RUVALCABA\\[id number] (name/location) notified by LSB_ (tech ID) at _ 03/10/201806:58 ___ (date/time).Credit issued. Specimen Blood Performing Organization Address City/[facility]/Zipcode Phone Number [facility] DEPARTMENT OF PATHOLOGY AND [address] [place] [address] GENOMIC MED[address] [address] XR Chest 1 Vw Portable (03/09/2018 12:10 PM SLIP MIXER) Narrative Performed At EXAMINATION:XR CHEST 1 VW PORTABLE [facility] CLINICAL HISTORY:Shortness of breath COMPARISON:None. IMPRESSION: There is marked volume loss of the right hemithorax with shift of the mediastinum to the right. Although this is accentuated by patient rotation, This has increased from a CT of the chest from June 13, 2016. Appears to be extensive volume loss in the right lower lobe with atelectasis or infiltrate in the right lower lobe. Diffuse emphysematous changes throughout the remainder the lungs Further evaluation CT of the chest is recommended Age related changes are present throughout the bony structures without evidence of a suspicious focal lesion. [facility]-[id number] Procedure Note Hm Interface, Radiology Results Incoming - 03/09/2018 12:17 PM SLIP MIXER EXAMINATION: XR CHEST 1 VW PORTABLE CLINICAL HISTORY: Shortness of breath COMPARISON: None. IMPRESSION: There is marked volume loss of the right hemithorax with shift of the mediastinum to the right. Although this is accentuated by patient rotation, This has increased from a CT of the chest from June 13, 2016. Appears to be extensive volume loss in the right lower lobe with atelectasis or infiltrate in the right lower lobe. Diffuse emphysematous changes throughout the remainder the lungs Further evaluation CT of the chest is recommended Age related changes are present throughout the bony structures without evidence of a suspicious focal lesion. [facility]-[id number] Performing Organization Address City/[facility] Centercode Phone Number [facility] [address] [place] [address] Transfuse RBC (03/08/2018 12:19 AM SLIP MIXER)Only the most recent of3 resultswithin the time period is included.Troponin (03/08/2018 12:00 AM SLIP MIXER)Only the most recent of3 resultswithin the time period is included. Troponin <0.30 0.00 - 0.30 ng/mL [facility] Comment: 0.30 - 1.49 ng/mlMay indicate increased risk of acute coronary syndrome. >=1.5 ng/mlConsistent with acute myocardial infarction. The diagnostic value of a single normal or non-diagnostic result is questionable.Serial samples at 2-6 hour intervals are required to rule out acute myocardial injury. Specimen Plasma specimen Performing Organization Address [facility] Centercode Phone Number [facility] DEPARTMENT OF PATHOLOGY AND [address] [place] [phone] Urine culture (03/07/2018 7:40 PM SLIP MIXER) Urine culture isolate No growth after 24 hours [facility] Comment: Specimen Information Specimen Source: Urine Specimen Site: Clean catch Specimen Urine Performing Organization Address [facility] Phone Number [facility] DEPARTMENT OF PATHOLOGY AND [address] [place] [address] ECG 12 lead (03/07/2018 9:30 AM SLIP MIXER)Only the most recent of2 resultswithin the time period is included. Ventricular rate 104 [facility] Atrial rate 104 [facility] WI interval 188 [facility] QRSD interval 88 [facility] QT interval 336 [facility] QTC interval 441 [facility] P axis 1 69 [facility] QRS axis 1 -18 [facility] T wave axis 75 [facility] EKG impression Sinus tachycardia-Septal infarct , age undetermined-Abnormal ECG-In automated comparison with ECG of 27-FEB-2018 13:43,-Septal infarct is now present-T wave inversion no longer evident in Inferior leads [facility] MUSE - Narrative Performed At Performing Organization Address City/[facility]/Zipcode Phone Number [facility] MUSE [address] [place] [address] Prepare RBC, 1 Units (03/07/2018 8:26 AM SLIP MIXER)Only the most recent of3 resultswithin the time period is included. Product name Apheresis Red Cell AS3 #2 LR [facility] Unit number [id number] [facility] Product code [id number] [facility] Dispense status Transfused [facility] Blood expiration date [facility] Blood type code 0600 [facility] Blood type A NEGATIVE [facility] Performing Organization Address [facility] Phone Number [facility] DEPARTMENT OF PATHOLOGY AND [address] [place] [address] GEN[address] [address] Type and screen (03/07/2018 8:26 AM SLIP MIXER)Only the most recent of2 resultswithin the time period is included. ABO grouping AB [facility] Rh type NEG [facility] Antibody screen (gel) NEG [facility] Specimen Blood Performing Organization Address [facility] Centercoct Phone Number [facility] DEPARTMENT OF PATHOLOGY AND [address] [place], [place] [phone] GENOMIC MEDICINE [address] [address] Surgical pathology request (03/06/2018 3:41 PM SLIP MIXER) [facility] DEPARTMENT OF PATHOLOGY AND GENOMIC MEDICINE Surgical pathology report See link below for PDF [facility] DEPARTMENT OF Lab Report PATHOLOGY AND GENOMIC MEDICINE Result status This is Final Report [facility] DEPARTMENT OF for [id number] PATHOLOGY AND GENOMIC MEDICINE Performing Organization Address [facility] Centercode Phone Number [facility] DEPARTMENT OF PATHOLOGY AND [address] [place], [place] [phone] [facility] MEDICINE Thromboelastograph (03/06/2018 2:58 PM SLIP MIXER)Only the most recent of2 resultswithin the time period is included. TEG R time 3.3 min [facility] TEG K time 1.2 min [facility] TEG angle 75.9 Deg [facility] TEG max amplitude 66.6 mm [facility] TEG coagulation index 3.60 Index [facility] TEG fibrinolysis/30 0.0 % [facility] Comment: OUTPATIENT CENTER Reference Ranges for TEG: Test: UnitsKaolin:Citrate Kaolin: Rmin 3.7-8.3 2.5- 7.5 Kmin 0.5-3.7 0.8- 2.8 AngleDeg 46.8-73.6 55.2-78.4 MA mm54.5-72.5 50.6-69.4 Gd/sc [id number] CI Index-3.0 - 3.0-3.0 - 3.0 LY30 % 0.0 - 7.5 0.0 - 7.5 Specimen description, TEG OTHER [facility] Sample type, TEG CK [facility] TEG SP time 3.2 min [facility] TEG G 9,956.8 d/sc [facility] Specimen Plasma specimen Performing Organization Address City/[facility] Centercoct Phone Number [facility] DEPARTMENT OF PATHOLOGY AND [address] [place] [address] [place] [address] Sodium level, syringe (03/06/2018 1:01 PM SLIP MIXER)Only the most recent of3 resultswithin the time period is included. Sodium, syringe 136 135 - 148 mEq/L [facility] Specimen Blood Performing Organization Address City/[facility] Centercode Phone Number [facility] DEPARTMENT OF PATHOLOGY AND [address] [place] [phone] [place] [address] Potassium, syringe (03/06/2018 1:01 PM SLIP MIXER)Only the most recent of3 resultswithin the time period is included. Potassium, syringe 5.1 (H) 3.5 - 5.0 mEq/L [facility] Specimen Blood Performing Organization Address [facility] Centercode Phone Number [facility] DEPARTMENT OF PATHOLOGY AND [address] [place], [place] [phone] [address] [address] Lactic acid, syringe (03/06/2018 1:01 PM SLIP MIXER)Only the most recent of2 resultswithin the time period is included. Lactic acid, syringe 5.3 (HH) 0.5 - 2.2 mmol/L [facility] Specimen Blood Performing Organization Address City/[facility] Centercode Phone Number [facility] DEPARTMENT OF PATHOLOGY AND [address] [place] [address] Ionized calcium, arterial (03/06/2018 1:01 PM SLIP MIXER)Only the most recent of3 resultswithin the time period is included. Ionized calcium, arterial 1.24 1.11 - 1.32 mmol/L [facility] Specimen Blood Performing Organization Address [facility] Centercode Phone Number [facility] DEPARTMENT OF PATHOLOGY AND [address] [place] [address] Hemoglobin, syringe (03/06/2018 1:01 PM SLIP MIXER)Only the most recent of3 resultswithin the time period is included. Hemoglobin, syringe 9.1 (L) 14.0 - 18.0 g/dL [facility] Specimen Blood Performing Organization Address [facility] Centercode Phone Number [facility] DEPARTMENT OF PATHOLOGY AND [address] [place] [address] Glucose level, syringe (03/06/2018 1:01 PM SLIP MIXER)Only the most recent of3 resultswithin the time period is included. Glucose, syringe 152 (H) 65 - 99 mg/dL [facility] Specimen Blood Performing Organization Address City/[facility] Centercode Phone Number [facility] DEPARTMENT OF PATHOLOGY AND [address] [place] [address] Magnesium level (03/06/2018 1:01 PM SLIP MIXER)Only the most recent of2 resultswithin the time period is included. Magnesium 1.1 (L) 1.6 - 2.4 mg/dL [facility] Specimen Plasma specimen Narrative Performed At LACTATE results called to and read [facility] DEPARTMENT OF PATHOLOGY AND GENOMIC back by FITZ GIBBS/LOGAN(name/location) at105/07/201713:43 (date/time) by JERAMY_. Performing Organization Address City/State/Zipcode Phone Number [facility] DEPARTMENT OF PATHOLOGY AND [address] [place] [address] [address] Arterial blood gas (03/06/2018 1:01 PM SLIP MIXER)Only the most recent of2 resultswithin the time period is included. pH, arterial 7.37 7.35 - 7.45 [facility] pCO2, arterial 38 35 - 45 mmHg [facility] pO2, arterial 185 (H) 80 - 90 mmHg [facility] Bicarbonate, arterial 21.0 21.0 - 28.0 mmol/L [facility] Base excess, arterial -3 (L) -2 - 2 mEq/L [facility] O2 saturation, arterial 100 95 - 100 % [facility] Specimen Blood Performing Organization Address City/[facility] Centercode Phone Number [facility] DEPARTMENT OF PATHOLOGY AND [address] [place] [address] [address] [place] < 1 Hour (03/06/2018 11:45 AM SLIP MIXER) Narrative Performed At EXAMINATION:[place] 1 HOUR [facility] C-arm fluoroscopy was requested in [place]. LOCATION:D3OR #9 C-ARM CASE PROCEDURE: Kyphoplasty START: 11:20 am END: 11:45 am FLUORO TIME: 9 sec DOSE: 12.58 mGy TECH: JT IMPRESSION: Separate operative report will be issued by the physician performing the procedure. [id number] Procedure Note Hm Interface, Radiology Results Incoming - 03/06/2018 9:48 PM SLIP MIXER EXAMINATION: [place] 1 HOUR C-arm fluoroscopy was requested in OR. LOCATION:[facility] #9 C-ARM CASE PROCEDURE: Kyphoplasty START: 11:20 am END: 11:45 am FLUORO TIME: 9 sec DOSE: 12.58 mGy TECH: JT IMPRESSION: Separate operative report will be issued by the physician performing the procedure. [id number] Performing Organization Address City/State/Zipcode Phone Number [facility] [address] [place] [address] [place] > I Hour (03/06/2018 11:10 AM SLIP MIXER) Narrative Performed At EXAMINATION:[place] 1 HOUR [facility] C-arm fluoroscopy was requested in [place]. LOCATION:[facility] #9 O-ARM CASE 2 Scans PROCEDURE: Posterior Lumbar Fusion START: 9:00 am END: 11:10 am FLUORO TIME: 4.47 sec DOSE: 60.68 mGy TECH: JT IMPRESSION: Separate operative report will be issued by the physician performing the procedure. [id number] Procedure Note Hm Interface, Radiology Results Incoming - 03/06/2018 9:47 PM SLIP MIXER EXAMINATION: [place] 1 HOUR C-arm fluoroscopy was requested in [place]. LOCATION:[facility] #9 O-ARM CASE 2 Scans PROCEDURE: Posterior Lumbar Fusion START: 9:00 am END: 11:10 am FLUORO TIME: 4.47 sec DOSE: 60.68 mGy TECH: JT IMPRESSION: Separate operative report will be issued by the physician performing the procedure. [id number] Performing Organization Address City/[facility] Centercode Phone Number [facility] [address] [place] [address] Arterial blood gas, corrected (03/06/2018 8:43 AM SLIP MIXER) pH, arterial 7.38 7.35 - 7.45 [facility] pCO2, arterial 38 35 - 45 mmHg [facility] pO2, arterial 326 (H) 80 - 90 mmHg [facility] Temperature, Celsius 35.7 Degrees C [facility] O2 saturation, arterial 100 95 - 100 % [facility] pH, arterial corrected 7.40 [facility] pCO2, arterial corrected 35 mmHg [facility] pO2, arterial corrected 321 mmHg [facility] Base excess, arterial -2 -2 - 2 mEq/L [facility] Specimen Blood Performing Organization Address City/[facility] Centercode Phone Number [facility] DEPARTMENT OF PATHOLOGY AND [address] [place] [address] GENOMIC MEDICINE [address] [address] XR Lumbar Spine 1 Vw (03/06/2018 7:55 AM SLIP MIXER) Narrative Performed At EXAMINATION: XR LUMBAR SPINE 1 VW [facility]ANT CLINICAL HISTORY: Lumbar region back pain and radiculopathy COMPARISON:None FINDINGS: There is a marker in the posterior paraspinal soft tissues at the L5-S1 level. There is anterior and posterior fusion at L5-S1. There are degenerative changes throughout the lumbar spine. There is another radiopaque marker in the posterior paraspinal soft tissues at the L1-2 disc space level. IMPRESSION: Lateral crosstable intraoperative radiographs of the lumbar spine for localization during lumbar spine surgery. [id number] Procedure Note Hm Interface, Radiology Results Incoming - 03/06/2018 9:16 AM SLIP MIXER EXAMINATION: XR LUMBAR SPINE 1 VW CLINICAL HISTORY: Lumbar region back pain and radiculopathy COMPARISON: None FINDINGS: There is a marker in the posterior paraspinal soft tissues at the L5-S1 level. There is anterior and posterior fusion at L5-S1. There are degenerative changes throughout the lumbar spine. There is another radiopaque marker in the posterior paraspinal soft tissues at the L1-2 disc space level. IMPRESSION: Lateral crosstable intraoperative radiographs of the lumbar spine for localization during lumbar spine surgery. [id number] Performing Organization Address [facility] Phone Number [facility] [address] [place] [phone] Partial thromboplastin time, activated (02/27/2018 1:30 PM SLIP MIXER) PTT 28.4 23.0 - 36.0 sec [facility] Comment: PTT therapeutic range for unfractionated heparin is 61.0-112.0 seconds which corresponds to Anti-Xa 0.3-0.7 U/ml. Specimen Blood Performing Organization Address [facility] Phone Number [facility] DEPARTMENT OF PATHOLOGY AND [address] [place] [id number] [address] Prothrombin time with INR (02/27/2018 1:30 PM SLIP MIXER) Prothrombin time 13.8 11.5 - 14.5 sec [facility] INR 1.[address] [facility] Comment: HOSPITAL The International Normalized Ratio (INR) is a therapeutic monitoring tool for patients who are stable on oral anticoagulant therapy. An INR of 2.0-3.0 is suggested for deep vein thrombosis/pulmonary embolism. Specimen Blood Performing Organization Address [facility] Phone Number [facility] DEPARTMENT OF PATHOLOGY AND [address] [place] [address] [address] [address] Post Myelogram Lumbar (02/09/2018 11:02 AM SLIP MIXER) Narrative Performed At EXAMINATION:CT POST MYELOGRAM LUMBAR HM [facility] CLINICAL HISTORY:M54.16 Radiculopathylumbar region, M54.16 COMPARISON:MRI lumbar spine dated January 02, 2018 and lumbar spine radiographs dated January 08, 2018 TECHNIQUE: Following the intrathecal administration of iodinated contrast axial helical CT images throughout the lumbar spine were performed. Sagittal and coronal reformatted images were generated. All CT images were acquired using low-dose technique with automated exposure control. FINDINGS: There is posterior fusion with bilateral pedicle screws and interlocking rods between L5 and S1 level with intervertebral disc graft. There is evidence of subsidence of the intervertebral disc graft. 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 There is a minimal anterior translation of L3 on L4 level. There is a chronic which compression fracture of T11 level. L1-2: Minimal disc bulge. No canal stenosis or foraminal narrowing. L2-3: There is a diffuse disc bulge with superimposed left central and subarticular broad-based disc protrusion associated with the posterior facet arthropathy and ligamentous hypertrophy. There is mild canal stenosis with moderate to severe left and moderate right lateral recess narrowing. There is left foraminal disc protrusion with left facet arthropathy resulting in moderate left foraminal narrowing and mass effect on the exiting left L2 nerve root. The right foramen is patent. L3-4: There is diffuse disc bulge with bilateral facet arthropathy and ligamentous hypertrophy. There is mild canal stenosis with moderate bilateral lateral recess narrowing. There is a spondylotic moderate severe right foraminal narrowing with potential mass effect on the exiting right L3 nerve root. The left foramen is patent. L4-5: There is severe spondylotic disc narrowing, vacuum phenomena and endplate sclerosis with bilateral facet arthropathy. There is associated posterior ligamentous thickening with epidural lumbar pneumatosis. There is a severe thecal sac narrowing. There is severe right and moderate left foraminal spondylotic narrowing. L5-S1: Posterior fusion with bilateral pedicle screws and interlocking rods. There is evidence of bone lucency around the screws at S1 and right more than the left. There is left lateral placement of the intervertebral disc graft with evidence of subsidence. There is a diffuse disc bulge with bilateral facet arthropathy ligamentous thickening. There is epidural lipomatosis. There is severe thecal sac narrowing. There is severe left foraminal narrowing with potential compromise of the left L5 nerve root. Visualized paraspinal soft tissues are unremarkable. IMPRESSION: Posterior fusion at L5-S1 level with bilateral pedicle screws and interlocking rods as described with evidence of bone loosening around the screws at S1 and subsidence and left lateral placement of the intervertebral disc graft. Multifactorial severe thecal sac narrowing at L4-L5 and L5-S1 level due to epidural lipomatosis, disc changes, posterior ligamentous thickening and bilateral facet arthropathy. Multilevel significant foraminal narrowing as described above. [facility]-[id number] Procedure Note Interface, Radiology Results Incoming - 02/09/2018 11:24 AM SLIP MIXER EXAMINATION: CT POST MYELOGRAM LUMBAR CLINICAL HISTORY: M54.16 Radiculopathy lumbar region, M54.16 COMPARISON: MRI lumbar spine dated January 02, 2018 and lumbar spine radiographs dated January 08, 2018 TECHNIQUE: Following the intrathecal administration of iodinated contrast axial helical CT images throughout the lumbar spine were performed. Sagittal and coronal reformatted images were generated. All CT images were acquired using low-dose technique with automated exposure control. FINDINGS: There is posterior fusion with bilateral pedicle screws and interlocking rods between L5 and S1 level with intervertebral disc graft. There is evidence of subsidence of the intervertebral disc graft. 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 There is a minimal anterior translation of L3 on L4 level. There is a chronic which compression fracture of T11 level. L1-2: Minimal disc bulge. No canal stenosis or foraminal narrowing. L2-3: There is a diffuse disc bulge with superimposed left central and subarticular broad-based disc protrusion associated with the posterior facet arthropathy and ligamentous hypertrophy. There is mild canal stenosis with moderate to severe left and moderate right lateral recess narrowing. There is left foraminal disc protrusion with left facet arthropathy resulting in moderate left foraminal narrowing and mass effect on the exiting left L2 nerve root. The right foramen is patent. L3-4: There is diffuse disc bulge with bilateral facet arthropathy and ligamentous hypertrophy. There is mild canal stenosis with moderate bilateral lateral recess narrowing. There is a spondylotic moderate severe right foraminal narrowing with potential mass effect on the exiting right L3 nerve root. The left foramen is patent. L4-5: There is severe spondylotic disc narrowing, vacuum phenomena and endplate sclerosis with bilateral facet arthropathy. There is associated posterior ligamentous thickening with epidural lumbar pneumatosis. There is a severe thecal sac narrowing. There is severe right and moderate left foraminal spondylotic narrowing. L5-S1: Posterior fusion with bilateral pedicle screws and interlocking rods. There is evidence of bone lucency around the screws at S1 and right more than the left. There is left lateral placement of the intervertebral disc graft with evidence of subsidence. There is a diffuse disc bulge with bilateral facet arthropathy ligamentous thickening. There is epidural lipomatosis. There is severe thecal sac narrowing. There is severe left foraminal narrowing with potential compromise of the left L5 nerve root. Visualized paraspinal soft tissues are unremarkable. IMPRESSION: Posterior fusion at L5-S1 level with bilateral pedicle screws and interlocking rods as described with evidence of bone loosening around the screws at S1 and subsidence and left lateral placement of the intervertebral disc graft. Multifactorial severe thecal sac narrowing at L4-L5 and L5-S1 level due to epidural lipomatosis, disc changes, posterior ligamentous thickening and bilateral facet arthropathy. Multilevel significant foraminal narrowing as described above. [facility]-[id number] Performing Organization Address City/State/Zipcode Phone Number [facility] [address] [place] [address] IR Myelogram Lumb Incl Inj W S&I (02/09/2018 10:28 AM SLIP MIXER) Narrative Performed At EXAMINATION:IR MYELOGRAM LUMB INCL INJ W S&I [facility] CLINICAL HISTORY:M54.16 Radiculopathylumbar region, M54.16 COMPARISON:None. TECHNIQUE: After informed consent was obtained, the patient was placed prone on the fluoroscopy table. The back was prepped and draped in sterile manner. The L2-Q2mzjiqoayeupc space was identified, and 2% buffered lidocaine was used for local anesthesia. Under fluoroscopic guidance, a 22-gauge Quincke needle was advanced percutaneously into the spinal subarachnoid space via interlaminar approach at L2-L3 until free-flowing CSF returned from the hub. Subsequently, 12-mL of iohexol 240was instilled into the thecal sac. The needle was removed. Multiple myelographic projections of the lumbarspine were obtained. The patient tolerated procedure well with no immediate complication. Total Fluoroscopy Time:60 seconds. Total fluoroscopic exposure images was 3 images. FLUOROSCOPIC LUMBAR MYELOGRAM IMPRESSION: There is posterior fusion with bilateral pedicle screws and interlocking rods between L5 and S1 level with intervertebral disc graft. There is adjacent segment disease with endplate tear disc care sclerosis and the disc space narrowing at L4-L5 level. There is evidence of significant thecal sac narrowing and constriction in the lower lumbar spine at L4 and, L5 and S1 level. For further details, please refer to the CT lumbar myelogram. [facility]-[id number] Procedure Note Interface, Radiology Results Incoming - 02/10/2018 6:30 PM SLIP MIXER EXAMINATION: IR MYELOGRAM LUMB INCL INJ W S&I CLINICAL HISTORY: M54.16 Radiculopathy lumbar region, M54.16 COMPARISON: None. TECHNIQUE: After informed consent was obtained, the patient was placed prone on the fluoroscopy table. The back was prepped and draped in sterile manner. The L2-L3 interspinous space was identified, and 2% buffered lidocaine was used for local anesthesia. Under fluoroscopic guidance, a 22 -gauge Quincke needle was advanced percutaneously into the spinal subarachnoid space via interlaminar approach at L2-L3 until free -flowing CSF returned from the hub. Subsequently, 12 -mL of iohexol 240 was instilled into the thecal sac. The needle was removed. Multiple myelographic projections of the lumbar spine were obtained. The patient tolerated procedure well with no immediate complication. Total Fluoroscopy Time: 60 seconds. Total fluoroscopic exposure images was 3 images. FLUOROSCOPIC LUMBAR MYELOGRAM IMPRESSION: There is posterior fusion with bilateral pedicle screws and interlocking rods between L5 and S1 level with intervertebral disc graft. There is adjacent segment disease with endplate tear disc care sclerosis and the disc space narrowing at L4-L5 level. There is evidence of significant thecal sac narrowing and constriction in the lower lumbar spine at L4 and, L5 and S1 level. For further details, please refer to the CT lumbar myelogram. [facility]-[id number] Performing Organization Address City/State/Zipcode Phone Number [facility] [address] [place] [address] XR Lumbar Spine Complete W Flex and Ext (01/08/2018 1:20 PM CDT) Narrative Performed At EXAMINATION:XR LUMBAR SPINE COMPLETE W FLEX & EXTEND [facility] CLINICAL HISTORY:M54.10 Radiculopathysite unspecified, m54.16 TECHNIQUE: AP, lateral bilateral posterior oblique, flexion, and extension views of the lumbar spine were obtained. COMPARISON: July 01, 2017. IMPRESSION: There are 5 ila-mra-rsysqrc lumbar type vertebrae. There is subtle anterolisthesis of L5 on S1 and retrolisthesis of L4 on L5. Mild anterolisthesis of L3 on L4. No definite dynamic instability on flexion-extension views. Lumbar vertebral body heights are maintained. L4-L5 disc degeneration with endplate sclerosis. No definite acute fracture identified. There are postsurgical changes of L5-S1 posterior spinal fusion with interbody fusion. Hardware is grossly intact. Multilevel osteophytosis and vascular calcifications. There is levocurvature of the lumbar spine. Redemonstration of T11 anterior vertebral body compression deformity. [facility]-[id number] Procedure Note Hm Interface, Radiology Results - 01/08/2018 3:24 PM CDT EXAMINATION: XR LUMBAR SPINE COMPLETE W FLEX & EXTEND CLINICAL HISTORY: M54.10 Radiculopathy site unspecified, m54.16 TECHNIQUE: AP, lateral bilateral posterior oblique, flexion, and extension views of the lumbar spine were obtained. COMPARISON: July 01, 2017. IMPRESSION: There are 5 olh-mrj-jwnzyxo lumbar type vertebrae. There is subtle anterolisthesis of L5 on S1 and retrolisthesis of L4 on L5. Mild anterolisthesis of L3 on L4. No definite dynamic instability on flexion- extension views. Lumbar vertebral body heights are maintained. L4-L5 disc degeneration with endplate sclerosis. No definite acute fracture identified. There are postsurgical changes of L5-S1 posterior spinal fusion with interbody fusion. Hardware is grossly intact. Multilevel osteophytosis and vascular calcifications. There is levocurvature of the lumbar spine. Redemonstration of T11 anterior vertebral body compression deformity. [facility]-[id number] Performing Organization Address City/State/Zipcode Phone Number [facility] [address] [place] [address] XR Spine Scoliosos 2-3 Views (01/08/2018 1:12 PM CDT) Narrative Performed At EXAMINATION: XR SPINE SCOLIOSIS 2-3 VIEWS [facility] CLINICAL HISTORY: M54.16 Radiculopathylumbar region, Lumbar Radiculopathy M54.16 COMPARISON:Scoliosis study 12/18/2016 IMPRESSION: 12 rib-bearing thoracic vertebrae with hypoplastic right 12th rib. Minimal left convex lower lumbar curvature with Villela angle measuring 7 degrees from the superior endplate of L1 to the inferior endplate of L4. Previous 13 degrees rightward curvature at T6 was likely exaggerated by patient positioning on the prior study of 12/18/2016. A coronal liane line drawn inferiorly from the mid C7 vertebral body terminates approximately 1.9 cm to the right of the mid S1 level. A sagittal liane line drawn inferiorly from the mid C7 vertebral body terminates approximately 3.3 cm anterior to the posterior aspect of the superior endplate of S1. Marked degenerative changes of the glenohumeral joints with pzuw-yh-icsm apposition. Posterior spinal fusion L5-S1. Anterior spinal fusion C4-C5 [id number] Procedure Note Hm Interface, Radiology Results - 01/08/2018 3:13 PM CDT EXAMINATION: XR SPINE SCOLIOSIS 2-3 VIEWS CLINICAL HISTORY: M54.16 Radiculopathy lumbar region, Lumbar Radiculopathy M54.16 COMPARISON: Scoliosis study 12/18/2016 IMPRESSION: 12 rib-bearing thoracic vertebrae with hypoplastic right 12th rib. Minimal left convex lower lumbar curvature with Villela angle measuring 7 degrees from the superior endplate of L1 to the inferior endplate of L4. Previous 13 degrees rightward curvature at T6 was likely exaggerated by patient positioning on the prior study of 12/18/2016. A coronal liane line drawn inferiorly from the mid C7 vertebral body terminates approximately 1.9 cm to the right of the mid S1 level. A sagittal liane line drawn inferiorly from the mid C7 vertebral body terminates approximately 3.3 cm anterior to the posterior aspect of the superior endplate of S1. Marked degenerative changes of the glenohumeral joints with uszy-rm-imcs apposition. Posterior spinal fusion L5-S1. Anterior spinal fusion C4-C5 [id number] Performing Organization Address City/State/Zipcode Phone Number [facility] [address] [place] [address] MRI Lumbar Spine Wo Contrast (01/02/2018 12:00 PM CDT) Narrative Performed At EXAMINATION: MRI LUMBAR SPINE WO CONTRAST [facility] CLINICAL HISTORY: M54.16 Radiculopathylumbar region, m54.16 COMPARISON:Lumbar spine x-ray dated July 01, 2017 TECHNIQUE: Multiplanar multisequence noncontrast enhanced examination was performed of the Lumbar spine. FINDINGS: There is anterolisthesis of L3 by 4 mm grade 1 anterolisthesis of L3. There is 2 mm anterolisthesis of L4 and L5. Lumbar spine alignment is grossly preserved with normal lordosis without significant subluxation. Axial images through the disc spaces demonstrate the following: L1-L2: There is mild disc bulge and facet changes with mild narrowing of lateral recesses. The canal is patent. Disc osteophyte complex results in mild left foraminal narrowing. L2-L3: There is disc bulge with facet and ligamentum flavum hypertrophy with moderate left lateral recess narrowing and central thecal sac narrowing to 6 mm. There is mild right lateral recess narrowing . Disc osteophyte complex and facet spurring results in moderate left and qtdh-na-pzjwvnly right foraminal narrowing. L3-L4: There is loss of disc height with diffuse disc bulge with facet and ligamentum flavum hypertrophy. There is moderate canal narrowing to 7 mm with moderate narrowing of the lateral recesses. Disc osteophyte complex and facet spurring results in mild left foraminal narrowing. There is a right foraminal protrusion with suggest some moderate severe right foraminal stenosis. Correlate for right L4 radiculopathy. L4-L5: There is complete loss of disc height with some endplate edema. There is moderate narrowing of lateral recesses. The central thecal sac still remains patent with only mild stenosis. Disc osteophyte complex and facet spurring results in mild bilateral foraminal stenosis. L5-S1: Anterior posterior fusion is noted at this level. The canal is patent. There are some metallic streak artifact limiting evaluation of the left foramen. The right foramen is mildly narrowed. Gross ly the left foramen is patent with possible mild narrowing suggested. No significant posterior disc disease, spinal canal or neural foraminal stenosis at other visualized levels. IMPRESSION: There is multilevel disc degenerative changes most prominent at L3-4 and L2-3 with moderate canal stenosis. No acute osseous abnormality identified. There is moderate severe right foraminal stenosis. Correlate for a right L4 radiculopathy. [facility]-[id number] Procedure Note Hm Interface, Radiology Results - 01/02/2018 4:07 PM CDT EXAMINATION: MRI LUMBAR SPINE WO CONTRAST CLINICAL HISTORY: M54.16 Radiculopathy lumbar region, m54.16 COMPARISON: Lumbar spine x-ray dated July 01, 2017 TECHNIQUE: Multiplanar multisequence noncontrast enhanced examination was performed of the Lumbar spine. FINDINGS: There is anterolisthesis of L3 by 4 mm grade 1 anterolisthesis of L3. There is 2 mm anterolisthesis of L4 and L5. Lumbar spine alignment is grossly preserved with normal lordosis without significant subluxation. Axial images through the disc spaces demonstrate the following: L1-L2: There is mild disc bulge and facet changes with mild narrowing of lateral recesses. The canal is patent. Disc osteophyte complex results in mild left foraminal narrowing. L2-L3: There is disc bulge with facet and ligamentum flavum hypertrophy with moderate left lateral recess narrowing and central thecal sac narrowing to 6 mm. There is mild right lateral recess narrowing. Disc osteophyte complex and facet spurring results in moderate left and xyhs-vy-qxpbxbzd right foraminal narrowing. L3-L4: There is loss of disc height with diffuse disc bulge with facet and ligamentum flavum hypertrophy. There is moderate canal narrowing to 7 mm with moderate narrowing of the lateral recesses. Disc osteophyte complex and facet spurring results in mild left foraminal narrowing. There is a right foraminal protrusion with suggest some moderate severe right foraminal stenosis. Correlate for right L4 radiculopathy. L4-L5: There is complete loss of disc height with some endplate edema. There is moderate narrowing of lateral recesses. The central thecal sac still remains patent with only mild stenosis. Disc osteophyte complex and facet spurring results in mild bilateral foraminal stenosis. L5-S1: Anterior posterior fusion is noted at this level. The canal is patent. There are some metallic streak artifact limiting evaluation of the left foramen. The right foramen is mildly narrowed. Grossly the left foramen is patent with possible mild narrowing suggested. No significant posterior disc disease, spinal canal or neural foraminal stenosis at other visualized levels. IMPRESSION: There is multilevel disc degenerative changes most prominent at L3-4 and L2-3 with moderate canal stenosis. No acute osseous abnormality identified. There is moderate severe right foraminal stenosis. Correlate for a right L4 radiculopathy. [facility]-[id number] Performing Organization Address City/State/Zipcode Phone Number SHOSHANA MCDANIEL [address] [place] [address] after 03/16/2017 Insurance Payer Benefit Plan / Group Subscriber ID Type Phone Address MEDICARE MEDICARE PART A AND B xxxxxxxxxx Medicare [place], [place] AARP AARP SUPPLEMENT xxxxxxxxxxx Commercial Guarantor Name Account Type Relation to Date of Phone Billing Patient Address Ranulfo Chao Personal/Family Self 1935 [address] (Home) [place] [address] Advance Directives Patient has advance care planning documents on file. For more information, please contact:Dwight Celaya[address] [place] [address]
--- OUTSIDE RECORDS SUMMARY | 2018-03-17 18:40 | XMS REPORT ---
:1935 [facility] Address [address] [place] [address] Dr. Pryor [address] [place] [address] Care Team Providers Name Role Phone Unavailable Unavailable Unavailable Problems This patient has no known problems. Allergies, Adverse Reactions, Alerts This patient has no known allergies or adverse reactions. Medications This patient has no known medications.
[2018-03-17] MEDS ORDERED: ONDANSETRON 4 MG (ODT) TAB PO PRN (18:46)
[2018-03-17] MEDS ORDERED: DUONEB NEB SCH (20:00)
[2018-03-17] MEDS: ENOXAPARIN 40 MG/0.4 ML SQ SCH (20:00)
[2018-03-17] MEDS: HYDROCODONE/APAP 10/325 TAB PO PRN (20:33)
[2018-03-17] MEDS: GUAIFENESIN 600 MG SA TAB PO SCH (20:33)
[2018-03-17] MEDS: GABAPENTIN 300 MG CAP PO SCH (20:33)
[2018-03-17] MEDS: IPRATROPIUM BROM 0.5MG/2.5ML IH SCH (20:35)
[2018-03-17] MEDS: ALBUTEROL 2.5 MG/3 ML NEB SOL NEB SCH (20:35)
[2018-03-17] MEDS ORDERED: ATORVASTATIN 40 MG TAB PO SCH (21:00)
[2018-03-17] MEDS: BISACODYL E.C. 5 MG TAB PO PRN (21:27)
[2018-03-17 22:53] LABS: Urine Appearance CLOUDY; Urine Bilirubin NEGATIVE (NEG); Urine Blood 3+ (NEG); Urine Color YELLOW; Urine Glucose NEGATIVE (NEG); Urine Protein TRACE (NEG); Urine Specific Gravity 1.025 (1.005-1.030); Urine Urobilinogen 0.2 mg/dL (0.2-1.0)
[2018-03-17 23:22] LABS: Urine Bacteria 20-50 /HPF (NONE SEEN); Urine Culture Reflex Order NOT NEEDED; Urine RBC TNTC /HPF (NONE SEEN)
[2018-03-18] MEDS: HYDROCODONE/APAP 10/325 TAB PO PRN ×5 (00:46→20:40)
[2018-03-18] MEDS: ALBUTEROL 2.5 MG/3 ML NEB SOL NEB SCH ×4 (02:35→20:55)
[2018-03-18] MEDS: IPRATROPIUM BROM 0.5MG/2.5ML IH SCH ×4 (02:35→20:55)
--- NOTE | 2018-03-18 03:11 | FAST ---
SHIFT START DATE/TIME: 03/17/2018 19:00 (ARTIFICIAL FOLIAGE ARRANGER) SHIFT END DATE/TIME: 03/18/2018 07:00 (ARTIFICIAL FOLIAGE ARRANGER) NAME MUNIR CHAO DATE OF : 1935 DATE OF ADMISSION: 03/17/2018 18:37 (ARTIFICIAL FOLIAGE ARRANGER) PHONE: AGE: 82 SSN# [id number] GENDER: Male ENCOUNTER PHYSICIAN: Dr. Bear Sousa M.D. 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 EATING: Activity did not occur on this shift EATING - SCORE: 0-UNK GROOMING: Activity did not occur on this shift GROOMING - SCORE: 0-UNK BATHING: Activity did not occur on this shift BATHING - SCORE: 0-UNK DRESSING - UPPER BODY: Patient is not dressing in public clothing ARTICLES SCORE Total number of steps: 0 DRESSING - UPPER BODY - SCORE: 0-UNK DRESSING - LOWER BODY: Patient is not dressing in public clothing ARTICLES SCORE Total number of steps: 0 DRESSING - LOWER BODY - SCORE: 0-UNK TOILETING: Activity did not occur on this shift TOILETING - SCORE: 0-UNK BLADDER MANAGEMENT: [place] cares for lr catheter including emptying drainage bag. BLADDER MANAGEMENT - SCORE: 1-DEP BOWEL MANAGEMENT: Activity did not occur on this shift BOWEL MANAGEMENT - SCORE: 7-IND TRANSFERS: BED, CHAIR, WHEELCHAIR: TRANSFERS: BED, CHAIR, WHEELCHAIR - STEP 1: Does the patient require assistance of a person or device, or need extra time with bed, chair, or whe elchair transfers? Yes. TRANSFERS: BED, CHAIR, WHEELCHAIR - STEP 2: Does the patient require the assistance of a helper? Yes. TRANSFERS: BED, CHAIR, WHEELCHAIR - STEP 3: How much assistance does the patient require from the helper? Steadying/guiding assistance TRANSFERS: BED, CHAIR, WHEELCHAIR - SCORE: 4-MIN TRANSFERS: TOILET: TRANSFERS: TOILET - STEP 1: Does the patient require the assistance of a person or device, or need extra time with toilet transfe rs? Yes. TRANSFERS: TOILET - STEP 2: Does the patient require the assistance of a helper? Yes. TRANSFERS: TOILET - STEP 3: How much assistance does the patient require from the helper? Patient performs half or more of the tr ansferring tasks TRANSFERS: TOILET - STEP 4: Does the patient need only incidental help such as contact guard or steadying during toilet transfer? Yes. TRANSFERS: TOILET - SCORE: 4-MIN TRANSFERS: SHOWER: Activity did not occur on this shift TRANSFERS: SHOWER - SCORE: 0-UNK TRANSFERS: TUB: Activity did not occur on this shift TRANSFERS: TUB - SCORE: 0-UNK LOCOMOTION: WALK: Activity did not occur on this shift LOCOMOTION: WALK - SCORE: 0-UNK LOCOMOTION: WHEELCHAIR: Activity did not occur on this shift LOCOMOTION: WHEELCHAIR - SCORE: 0-UNK COMPREHENSION: COMPREHENSION: TYPE: Both COMPREHENSION - STEP 1: Does the patient require help from a person or device, or need extra time to understand complex and a bstract ideas (such as current events, finances, discharge planning, medical issues, relationships, e tc)? Yes. COMPREHENSION - STEP 2: Does the patient require help to understand questions or statements about basic needs or ideas (such as hunger, thirst, sleep, safety, daily schedule, room location, or discomfort) half or more of the t mattie? No. COMPREHENSION - STEP 3: How often does the patient need help to understand directions and conversation about basic needs? Les s than 10% of the time COMPREHENSION - SCORE: 5-SUP EXPRESSION EXPRESSION: TYPE: Both EXPRESSION - STEP 1: Does the patient require help from a person or device, or need extra time expressing complex and abst ract ideas (such as current events, finances, discharge planning, medical issues, relationships, etc) ? Yes. EXPRESSION - STEP 2: Does the patient require help to express basic necessities or ideas (such as hunger, thirst, sleep, s afety, daily schedule, room location, or discomfort) half or more of the time? No. EXPRESSION - STEP 3: How often does the patient need help to express directions and conversation about basic needs? Less t schneider 10% of the time EXPRESSION - SCORE: 5-SUP SOCIAL INTERACTION: SOCIAL INTERACTION - STEP 1: Does the patient require a helper to interact with others in social and therapeutic situations? No. SOCIAL INTERACTION - STEP 2: Does the patient need extra time in social situations, OR does s/he interact with staff, other patien ts, and family members ONLY in structured environments, OR does s/he require medication for social in teraction? Yes, patient needs extra time SOCIAL INTERACTION - SCORE: 6-GARRY PROBLEM SOLVING: Patient requires bed/chair alarms due to attempts to get up unassisted when helper is needed. PROBLEM SOLVING - STEP 1: How often do the bed/chair alarms go off? Occasionally - the alarms go off about 25% or less PROBLEM SOLVING - SCORE: 4-MIN MEMORY: MEMORY - STEP 1: How often do the bed/chair alarms go off? Occasionally - the alarms go off about 25% of the time or l ess MEMORY - SCORE: 4-MIN SIGNATURE PANEL: The following modified sections: Eating - Score, Grooming - Score, Bathing - Score, Dressing - Upper Body - Score, Dressing - Lower Body - Score, Toileting - Score, Bladder Management - Score, Bowel Man agement - Score, Transfers: Bed, Chair, Wheelchair - Score, Transfers: Toilet - Score, Transfers: Tova wer - Score, Transfers: Tub - Score, Locomotion: Walk - Score, Locomotion: Wheelchair - Score, Compre hension - Score, Expression - Score, Social Interaction - Score, Problem Solving - Score, Memory - Sc ore were [electronically] signed by Kusum Allan RN on FriMar 18 2018 03:11:04 GMT-0600 (Central Stand geoff[place] Time)
[2018-03-18 06:21] LABS: Absolute Lymphocytes (CBC) 3.9 K/uL (0.7-4.9); Absolute Monocytes 1.2 K/uL (0.1-1.3); Absolute Neutrophil 13.1 K/uL (1.8-8.0); Basophils % 0.2 % (0-1.3); Eosinophils % 0.8 % (0-4.4); Hematocrit 31.7 % (39.6-49.0); Lymphocytes % 21.3 % (15.3-44.8); MPV 7.8 fL (7.6-11.3); Monocytes % 6.7 % (3.3-12.3); RBC Red Blood Cell Count 3.67 M/uL (4.33-5.43)
[2018-03-18 06:41] LABS: Albumin 2.7 g/dL (3.4-5.0); Magnesium 1.7 mg/dL (1.8-2.4); Potassium 4.1 mmol/L (3.5-5.1); Prealbumin 26.8 mg/dL (20-40)
[2018-03-18] MEDS ORDERED: DUTASTERIDE 0.5 MG GEL CAP PO SCH ×2 (08:00)
[2018-03-18] MEDS: GABAPENTIN 300 MG CAP PO SCH (08:36)
[2018-03-18] MEDS: MAGNESIUM OXIDE 400 MG TAB PO SCH (08:37)
[2018-03-18] MEDS: VITAMIN D 1000 UNIT TAB PO SCH (08:37)
[2018-03-18] MEDS: GUAIFENESIN 600 MG SA TAB PO SCH ×2 (08:38→20:41)
[2018-03-18] MEDS: ASPIRIN EC 81 MG TAB PO SCH (08:38)
[2018-03-18] MEDS: CLOPIDOGREL 75 MG TABLET PO SCH (08:38)
[2018-03-18] MEDS: TAMSULOSIN 0.4 MG SR CAP PO SCH (08:38)
[2018-03-18] MEDS: PANTOPRAZOLE 40MG TABLET PO SCH (08:38)
[2018-03-18] MEDS: METHOCARBAMOL 500 MG TAB PO PRN (12:04)
[2018-03-18] MEDS: SODIUM CHLORIDE 1 GM TAB PO SCH ×2 (12:04→16:03)
[2018-03-18] MEDS: DUTASTERIDE 0.5 MG CAPSULE PO SCH (12:06)
[2018-03-18] MEDS: GABAPENTIN 400 MG CAP PO SCH ×2 (15:04→20:40)
[2018-03-18] MEDS: BISACODYL 10 MG RECTAL SUPP PR PRN (15:25)
--- NOTE | 2018-03-18 15:52 | FAST ---
ENCOUNTER DATE AND TIME: 03/18/2018 08:00 (NETWORK MANAGEMENT SPECIALIST) NAME MUNIR CHAO DATE OF : 1935 DATE OF ADMISSION: 03/17/2018 18:37 (NETWORK MANAGEMENT SPECIALIST) PHONE: AGE: 82 SSN# [id number] GENDER: Male ENCOUNTER PHYSICIAN: Dr. Bear Sousa M.D. 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 EATING: Activity did not occur on this shift EATING - SCORE: 0-UNK GROOMING: Activity did not occur on this shift GROOMING - SCORE: 0-UNK BATHING: Activity did not occur on this shift BATHING - SCORE: 0-UNK DRESSING - UPPER BODY: Activity did not occur on this shift Patient is not dressing in public clothing ARTICLES SCORE Total number of steps: 0 DRESSING - UPPER BODY - SCORE: 0-UNK DRESSING - LOWER BODY: Activity did not occur on this shift Patient is not dressing in public clothing ARTICLES SCORE Total number of steps: 0 DRESSING - LOWER BODY - SCORE: 0-UNK TOILETING: Activity did not occur on this shift TOILETING - SCORE: 0-UNK BLADDER MANAGEMENT: Activity did not occur on this shift BLADDER MANAGEMENT - SCORE: 7-IND BOWEL MANAGEMENT: Activity did not occur on this shift BOWEL MANAGEMENT - SCORE: 7-IND TRANSFERS: BED, CHAIR, WHEELCHAIR: TRANSFERS: BED, CHAIR, WHEELCHAIR - STEP 1: Does the patient require assistance of a person or device, or need extra time with bed, chair, or whe elchair transfers? Yes. TRANSFERS: BED, CHAIR, WHEELCHAIR - STEP 2: Does the patient require the assistance of a helper? Yes. TRANSFERS: BED, CHAIR, WHEELCHAIR - STEP 3: How much assistance does the patient require from the helper? Lifting of the patient TRANSFERS: BED, CHAIR, WHEELCHAIR - STEP 4: Does the helper lift the patient ONLY up? ONLY down? Up AND Down? Up AND Down. TRANSFERS: BED, CHAIR, WHEELCHAIR - SCORE: 2-MAX TRANSFERS: TOILET: Activity did not occur on this shift TRANSFERS: TOILET - SCORE: 0-UNK TRANSFERS: SHOWER: Activity did not occur on this shift TRANSFERS: SHOWER - SCORE: 0-UNK TRANSFERS: TUB: Activity did not occur on this shift TRANSFERS: TUB - SCORE: 0-UNK LOCOMOTION: WALK: LOCOMOTION: WALK - STEP 1: Does the patient need help from a person or device, or need extra time to walk 150 feet? Yes. LOCOMOTION: WALK - STEP 2: How much assistance does the patient require to walk a minimum of 150 feet? Patient walks less than 1 50 feet - but more than 50 feet - with the assistance of only one helper LOCOMOTION: WALK - SCORE: 2-MAX LOCOMOTION: WHEELCHAIR: Activity did not occur on this shift LOCOMOTION: WHEELCHAIR - SCORE: 0-UNK LOCOMOTION: STAIRS: Activity did not occur on this shift LOCOMOTION: STAIRS - SCORE: 0-UNK COMPREHENSION: COMPREHENSION - SCORE: 0-UNK EXPRESSION EXPRESSION - SCORE: 0-UNK SOCIAL INTERACTION: SOCIAL INTERACTION - SCORE: 0-UNK PROBLEM SOLVING: PROBLEM SOLVING - SCORE: 0-UNK MEMORY: MEMORY - SCORE: 0-UNK SIGNATURE PANEL: The following modified sections: Transfers: Bed, Chair, Wheelchair - Score, Transfers: Toilet - Score , Locomotion: Walk - Score, Locomotion: Wheelchair - Score, Locomotion: Stairs - Score were [electron asael] signed by Hitesh Miranda, PT on FriMar 18 2018 15:51:42 GMT-0600 (Central Standard Time)
--- NOTE | 2018-03-18 15:57 | FAST ---
SHIFT START DATE/TIME: 03/18/2018 07:00 (APPLICATION SECURITY ENGINEER) SHIFT END DATE/TIME: 03/18/2018 19:00 (APPLICATION SECURITY ENGINEER) NAME MUNIR CHAO DATE OF : 1935 DATE OF ADMISSION: 03/17/2018 18:37 (APPLICATION SECURITY ENGINEER) PHONE: AGE: 82 SSN# [id number] GENDER: Male ENCOUNTER PHYSICIAN: Dr. Bear Sousa M.D. 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 EATING: EATING - STEP 1: Does the patient require the assistance of a person or device, or need extra time when eating? Yes. EATING - STEP 2: Does the patient require the assistance of a helper? Yes. EATING - STEP 3: Does the patient perform half or more of the eating tasks? Yes. EATING - STEP 4: Does the patient need only supervision, cuing, coaxing OR help to apply an orthosis OR help to cut fo od, open containers, pour liquids, or butter bread? Yes. EATING - SCORE: 5-SUP GROOMING: Activity did not occur on this shift GROOMING - SCORE: 0-UNK BATHING: Activity did not occur on this shift BATHING - SCORE: 0-UNK DRESSING - UPPER BODY: Activity did not occur on this shift ARTICLES SCORE Total number of steps: 0 DRESSING - UPPER BODY - SCORE: 0-UNK DRESSING - LOWER BODY: Activity did not occur on this shift ARTICLES SCORE Total number of steps: 0 DRESSING - LOWER BODY - SCORE: 0-UNK TOILETING: Activity did not occur on this shift TOILETING - SCORE: 0-UNK TOILETING - COMMENTS: Pt has lr BLADDER MANAGEMENT: [place] cares for lr catheter including emptying drainage bag. BLADDER MANAGEMENT - SCORE: 1-DEP BLADDER MANAGEMENT - FREQUENCY OF ACCIDENTS: BLADDER MANAGEMENT(FA) - STEP 1: How many accidents has the patient had during the current shift? 0 BOWEL MANAGEMENT: Activity did not occur on this shift BOWEL MANAGEMENT - SCORE: 7-IND BOWEL MANAGEMENT - FREQUENCY OF ACCIDENTS: BOWEL MANAGEMENT(FA) - STEP 1: How many accidents has the patient had during the current shift? 0 TRANSFERS: BED, CHAIR, WHEELCHAIR: TRANSFERS: BED, CHAIR, WHEELCHAIR - STEP 1: Does the patient require assistance of a person or device, or need extra time with bed, chair, or whe elchair transfers? Yes. TRANSFERS: BED, CHAIR, WHEELCHAIR - STEP 2: Does the patient require the assistance of a helper? Yes. TRANSFERS: BED, CHAIR, WHEELCHAIR - STEP 3: How much assistance does the patient require from the helper? Lifting of the patient TRANSFERS: BED, CHAIR, WHEELCHAIR - STEP 4: Does the helper lift the patient ONLY up? ONLY down? Up AND Down? Up AND Down. TRANSFERS: BED, CHAIR, WHEELCHAIR - SCORE: 2-MAX TRANSFERS: TOILET: Activity did not occur on this shift TRANSFERS: TOILET - SCORE: 0-UNK TRANSFERS: TOILET - COMMENTS: Pt has lr TRANSFERS: SHOWER: Activity did not occur on this shift TRANSFERS: SHOWER - SCORE: 0-UNK TRANSFERS: TUB: Activity did not occur on this shift TRANSFERS: TUB - SCORE: 0-UNK LOCOMOTION: WALK: Activity did not occur on this shift LOCOMOTION: WALK - SCORE: 0-UNK LOCOMOTION: WHEELCHAIR: LOCOMOTION: WHEELCHAIR - STEP 1: Does the patient need help to go 150 feet in a wheelchair? No. LOCOMOTION: WHEELCHAIR - SCORE: 6-GARRY COMPREHENSION: COMPREHENSION: TYPE: Both COMPREHENSION - STEP 1: Does the patient require help from a person or device, or need extra time to understand complex and a bstract ideas (such as current events, finances, discharge planning, medical issues, relationships, e tc)? Yes. COMPREHENSION - STEP 2: Does the patient require help to understand questions or statements about basic needs or ideas (such as hunger, thirst, sleep, safety, daily schedule, room location, or discomfort) half or more of the t mattie? No. COMPREHENSION - STEP 3: How often does the patient need help to understand directions and conversation about basic needs? Les s than 10% of the time COMPREHENSION - SCORE: 5-SUP EXPRESSION EXPRESSION: TYPE: Both EXPRESSION - STEP 1: Does the patient require help from a person or device, or need extra time expressing complex and abst ract ideas (such as current events, finances, discharge planning, medical issues, relationships, etc) ? Yes. EXPRESSION - STEP 2: Does the patient require help to express basic necessities or ideas (such as hunger, thirst, sleep, s afety, daily schedule, room location, or discomfort) half or more of the time? No. EXPRESSION - STEP 3: How often does the patient need help to express directions and conversation about basic needs? 10-24% of the time EXPRESSION - SCORE: 4-MIN SOCIAL INTERACTION: SOCIAL INTERACTION - STEP 1: Does the patient require a helper to interact with others in social and therapeutic situations? No. SOCIAL INTERACTION - STEP 2: Does the patient need extra time in social situations, OR does s/he interact with staff, other patien ts, and family members ONLY in structured environments, OR does s/he require medication for social in teraction? Yes, patient needs extra time SOCIAL INTERACTION - SCORE: 6-GARRY PROBLEM SOLVING: PROBLEM SOLVING - STEP 1: Does the patient need help from a person or device, or need extra time to solve complex problems such as managing a checking account or confronting interpersonal problems? Yes. PROBLEM SOLVING - STEP 2: Does the patient solve basic routine problems half or more of the time? Yes. PROBLEM SOLVING - STEP 3: How often does the patient need help to solve basic routine problems? 10%-24% of the time PROBLEM SOLVING - SCORE: 4-MIN MEMORY: MEMORY - STEP 1: Does the patient need help from a person or device, or need extra time to remember frequently encount ered people, daily routines, and executing requests? Yes. MEMORY - STEP 2: How often does the patient need help to remember frequently encountered people, daily routines, and e xecuting requests? 10% - 24% of the time MEMORY - SCORE: 4-MIN SIGNATURE PANEL: The following modified sections: Eating - Score, Grooming - Score, Bathing - Score, Dressing - Upper Body - Score, Dressing - Lower Body - Score, Toileting - Score, Toileting - Comments:, Bladder Manage ment - Score, Bowel Management - Score, Transfers: Bed, Chair, Wheelchair - Score, Transfers: Toilet - Score, Transfers: Toilet - Comments:, Transfers: Shower - Score, Transfers: Tub - Score, Locomotion : Walk - Score, Locomotion: Wheelchair - Score, Comprehension - Score, Social Interaction - Score, Pr oblem Solving - Score, Memory - Score, Expression - Score were [electronically] signed by Cyn vu C.N.ACasa on FriMar 18 2018 15:56:11 GMT-0600 (Central Standard Time)
[2018-03-18] MEDS: ENOXAPARIN 40 MG/0.4 ML SQ SCH (16:03)
--- NOTE | 2018-03-18 16:59 | CON ---
Reason For Consultation: Urinary retention, status post spinal surgery on 02/24. History Of Present Illness: Mr. Chao is a pleasant 82-year-old gentleman who I have known from the office. He has a history of BPH. He is status post microwave therapy years ago. He is currently on Flomax and finasteride. However, they are not able to get his finasteride in the hospital, so the has been bringing his medicines from home. He had his surgery on 03/06 and his catheter was discontinued on 03/13/2018, however, had to be replaced on 2018. He was then transferred here yesterday to rehab on the hospital. Of note , his white count is elevated to 18.5. His urine seems to be positive for UTI, so we are going to start Augmentin for the patient. We are going to recommend bladder training, Mccarthy catheter, every 4 to 6 hours for bladder training. Past Medical History: Has history of spinal stenosis, status post 2 spinal surgeries, February 2018 and January 2017, has some allergies, has previous surgeries, arthritis, back pain. Does not exercise, falls frequently, has some hearing deficits, history of Guillain-[place] syndrome, hyperlipidemia, pneumonia , history of coronary artery stents, BPH, and stroke. Past Surgical History: He has had microwave to the prostate, TUMT, eye surgery , bronchoscopy, lumbar surgery, mediastinoscopy, neck surgery with 4 titanium screws, 4 heart stents and tonsillectomy. Allergies: HE IS ALLERGIC TO LEVAQUIN AND THE INFLUENZA FLU VIRUS VACCINE AND CODEINE. NO ENVIRONMENTAL ALLERGIES. Review of Systems: Ten-point review of systems otherwise negative. Physical Examination: General: The patient is alert and oriented, in no acute distress. is present in the room. Dr. Sousa is present in the room. Also nurseAdrian is present in the room. Vital Signs: The patient weighs 159 pounds, his height is 5 feet 6 inches, BMI 25.7. HEENT: Atraumatic and normocephalic. Lungs: Clear. Heart: Regular rate and rhythm. Abdomen: Soft, nontender. Mccarthy catheter is draining clear urine. Both testicles are descended. CHARITO was deferred. It was difficult for the patient to roll to the side with too much pain, so is deferred for now, however. Laboratory Data: Urinalysis shows pH 6.0, specific gravity 1.025, blood 3+, rbc 's too numerous to count, wbc's 20 to 50, bacteria 20 to 50. Urine culture is pending. Chemistries show sodium 135, potassium 4.1, chloride 102, carbon dioxide 28, BUN 31, creatinine 0.92, GFR 79, glucose 123, calcium 8.9, magnesium 1.7, and albumin 2.7. Hematology: White count 18.5, H and H of 10.4 and 31.7, platelets 442. Assessment: Urinary retention status post spinal stenosis surgery. The patient is on Flomax. UA is positive. Urine culture is pending. Plan: Plan is to begin bladder training and we will go ahead and start antibiotics, Augmentin for now. We may switch when the culture and sensitivity comes back and take it from there. EMILY Voice ID: [id number] Report ID: [id number] CAROLINE
--- NOTE | 2018-03-18 18:53 | PAPE ---
PATIENT: [facility] MR# [id number] REFERRING DOCTOR Gil Quiles EVALUATION DATE AND TIME 03/18/2018 18:50 (CATERING MANAGER) NAME MUNIR CHAO DATE OF 1935 AGE 82 PHONE SSN# [id number] GENDER male EVALUATING PHYSICIAN Dr. Bear Sousa M.D. ADMISSION DIAGNOSIS: Spinal stenosis POST-ADMISSION FUNCTIONAL/MEDICAL STATUS: - Bladder Same accident frequency: Ind - No accidents in the past 7 days - Bowel Same accident frequency: Ind - No accidents in the past 7 days - Walking Same score based on distance walked: 2(8312ft) STATUS CHANGE EVALUATION: No change in Functional or Medical Status is identified compared with Pre-Admission screening. PATIENT NEEDS CLOSE MEDICAL SUPERVISION BY A REHABILITATION PHYSICIAN FOR: Bowel and Bladder Management Coordination of Treatment Team Wound Care PATIENT REQUIRES 24X7 REHAB NURSING FOR MEDICAL AND FUNCTIONAL MGT. OF THE FOLLOWING DEFICITS: ADL's Ambulation Bowel and Bladder Management Cognition Communication Disease Management Medication Management Patient/Family Education Providing Safe Environment Skin Integrity Transfers PATIENT REQUIRES INTENSIVE, COORDINATED INTERDISCIPLINARY APPROACH TO REHAB: Arranging Home Equipment/Services Discharge Planning Family Intervention/Training Histologist Technologist/Case Management LIST OF IDENTIFIED AND POTENTIAL PROBLEMS: Alteration in leisure activities Bladder, Incontinence Bowel, Incontinence Infection, Actual or Potential Mobility Impaired Pain, Alteration in Comfort Self Care Deficit Skin Integrity, Actual or Potential Urinary Tract Infection (UTI), Actual or Potential PATIENT COULD BE AT RISK FOR COMPLICATIONS FROM ADVERSE MEDICAL CONDITIONS DUE TO HIS/HER COMORBIDITI ES AND THE RIGORS OF THE INTENSIVE REHABILLITATION PROGRAM. METHODS OR INTERVENTIONS TO AVOID COMPLIC ATIONS INCLUDE: - Bleeding Assess lab values and manage abnormalities. Nursing to teach precautions for anti-coagulation therapy . Wound to be assessed every shift. - Infection Clinical staff to assess and manage the signs and symptoms of infection including fever, redness, war mth, etc. - Urinary Tract Infection - Falls Patient will be evaluated for Fall Precautions and will be placed on Fall Precautions as indicated pe r protocol. - Skin Breakdown Nursing will assess skin daily using assessment tool and will place on Skin Breakdown Precautions as indicated per protocol. - Pain Clinical staff may employ non-medication methods such as massage, distraction, decrease stimulus, etc . as needed. Clinical staff will assess patient's pain level every shift per protocol to assess and e nsure pain management effectiveness. Medications will be given and the pain level re-assessed. PRELIMINARY PLAN OF CARE: - Physical Therapy Patient needs Physical Therapy for a daily minimum of 1.5 hours at least 5 out of 7 days, to improve: Mobility, Strengthening, Transfers, Stretching, ROM, Endurance, Ability to manage stairs, Gait, and Balance. - Rehabilitation Nursing Patient requires 24x7 Rehabilitation Nursing for: Pain Issues, Identifying and preventing risk factor s, Monitoring and reporting current medical conditions, Assisting with ambulation and transfer, Zander ting with all ADL-s, Teaching patients about disease process and medications, Family teaching, Provid ing safe environment, Bowel and Bladder Issues, Skin Integrity, and Medication Management. Patient needs Histologist Technologist and/or Case Management for: Discharge Planning, Arranging Home Equipmen t or Services, and Family Interventions. - Dietary and Nutrition Services Patient needs Dietary and Nutrition Services for: Adequate Nutrition, Nutritional Supplements, and Nu tritional Education. - Occupational Therapy Patient needs Occupational Therapy for a daily minimum of 1.5 hours at least 5 out of 7 days, to impr ove Activities of Daily Living, including: Eating, Grooming, Bathing, Dressing, Toileting, Toilet Tra nsfers, Community Reintegration, Higher functional activities, Adaptive Equipment, Splinting, Househo ld Tasks, and Other activities as determined. POTENTIAL FUNCTIONAL GOALS FOR PATIENT TO ACHIEVE BY DISCHARGE: - Safety Precaution Patient will remain free from falls or injury at time of discharge. - Bed Mobility Patient will perform bed mobility at 4-Umesh level of assistance. - Transfers Patient will complete transfers from bed to chair at 4-Umesh level of assistance. - Mobility Patient will ambulate 150 ft with 4-Umesh level of assistance with RW. PATIENT REHAB POTENTIAL Expected level of measurable improvement will be of a practical value to patient's functional capacit y or adaptations to impairments Has a viable Discharge Plan Medically appropriate; condition is sufficiently stable to participate in intensive rehab program Patient is able and expected to receive 3 hours of individualized therapy daily on at least 5 of ever y 7 days Patient's prognosis for significant practical improvement within a reasonable period of time appears Good DISCHARGE PLAN: - Estimated Length of Stay (days) 16. - Consensus on plan Discharge plan has been discussed with primary caregiver. Patient/Family is in agreement with the ewelina n. Primary caregiver is in agreement with the plan. - Patient/Family Goals Return home with assistance. - Planned Living Setting Upon Discharge Home, to live with Family/Relatives. Transitional Living. CONCLUSION ON REHABILITATION NECESSITY: I have evaluated patient's pre-admission functional status and, comparing it to the patient's post-ad mission functional status now, I conclude that the pre-admission assessment was accurate. Patient's c ondition on admission supports the medical necessity of admission to [facility]. It is safe to proceed with patient's therapy program. SIGNATURE PANEL: (CATERING MANAGER)
[2018-03-18] MEDS: ATORVASTATIN 40 MG TAB PO SCH (20:41)
[2018-03-18] MEDS: AMOX/K CLAV 500 MG TAB PO SCH (20:43)
--- NOTE | 2018-03-19 00:11 | CON ---
Date of Consultation: 03/18/2018 Time: 1909. Reason: Neuropathy. History: An 82-year-old gentleman, well known to myself. 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 He has significant coronary disease. He has lumbar and spinal spondylosis. He had a lumbar gallagher rgery last year, that resulted in some improvement of some radicular back pain symptoms, but the hany ent continued to be very active despite the advice of his surgeon and had to have redo surgery recent ly. One of those screws had come loose and he had epidural lipomatosis as well. He had surgery last Friday. It looks like he had a laminectomy and I will need to review the actual operative note f rom his surgeon, that I believe was sent to my office recently. He is in rehab now for reconditionin g. He has some issues with urinary retention and a UTI. He has been started on antibiotics by his l gurpreet-time urologist, Dr. Orellana. The reason I have been asked to see him is if we think that a course of IgG might be appropriate given current scenario. Past Medical History: Significant past medical history has been alluded to also with hyperlipidemia. Medications: Currently Ultram, Flomax, Protonix, Robaxin, melatonin at night, magnesium, Atrovent, N orco as needed, gabapentin 1200 t.i.d., Plavix, vitamin D, Zyrtec, atorvastatin 80, aspirin 81, Augme ntin 500/125 b.i.d., and albuterol. Allergies: LEVAQUIN, CODEINE. HE SHOULD AVOID RECEIVING INFLUENZA VACCINE GIVEN THE HISTORY OF GUIL ISI-BARRE. Social History: . Normally independent with activities of daily living. Former smoker. Family History: Noncontributory. Review of Systems: General: Chronically ill. Eyes: Negative. Ears, Nose, and Throat: Negative. Edentulous. Cardiovascular: Coronary disease. Pulmonary: Negative. GI: Negative. : Urinary retention. Musculoskeletal: Back pain. Recent lumbar laminectomy. Neurologic: As noted. He is not noticing any new paresthesias or weakness to the extremities. He d oes have some postoperative pain. Physical Examination: Vital Signs: 97.1, 87, 16, and 145/74. General: Pleasant, thin gentleman, lying in bed, in no distress. Awake, alert, and oriented. HEENT: Pupils reactive. Ocular motion full. Visual graham full. Incomplete bilateral seventh nerv e palsies, longstanding. Edentulous. Tongue midline. Soft palate elevates bilaterally. Extremities: Upper extremity strength full. Lower extremities are full strength. Foot dorsiflexion and plantar flexion, hip flexion, knee extension somewhat limited secondary to pain. Sensation decr eased distally, unchanged. Reflexes are actually present, 1/4, at the knees and at the biceps, other euceda trace. Toes are downgoing. Cerebellar: Exam demonstrates no ataxia. Impression: Peripheral neuropathy, history of Guillain-[place]. Plan: I would not at this juncture recommend another course of IgG. I think that the most prudent c ourse of action is to see if the urinary retention resolves with bladder training. Postoperatively, we can re-evaluate the need for that medication after he recovers fully from the laminectomy. I do n ot think restarting prednisone on a long-term basis is prudent given the epidural lipomatosis that wa s found on imaging and that contributed some to his spinal stenosis. Thank you for the consult. We will continue to follow with you. BENITA Voice ID: [id number] Report ID: [id number]
[2018-03-19] MEDS: METHOCARBAMOL 500 MG TAB PO PRN (01:22)
[2018-03-19] MEDS: HYDROCODONE/APAP 10/325 TAB PO PRN ×3 (01:54→16:53)
[2018-03-19] MEDS: IPRATROPIUM BROM 0.5MG/2.5ML IH SCH ×4 (02:50→21:05)
[2018-03-19] MEDS: ALBUTEROL 2.5 MG/3 ML NEB SOL NEB SCH ×4 (02:50→21:05)
--- NOTE | 2018-03-19 02:56 | FAST ---
SHIFT START DATE/TIME: 03/18/2018 19:00 (HIGH RISK OB) SHIFT END DATE/TIME: 03/19/2018 07:00 (HIGH RISK OB) NAME MUNIR CHAO DATE OF : 1935 DATE OF ADMISSION: 03/17/2018 18:37 (HIGH RISK OB) PHONE: AGE: 82 SSN# [id number] GENDER: Male ENCOUNTER PHYSICIAN: Dr. Bear Sousa M.D. 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 EATING: Activity did not occur on this shift EATING - SCORE: 0-UNK GROOMING: Wash, rinse, and dry hands GROOMING - STEP 1: Does the patient require the assistance of a person or device, or need extra time when grooming? Yes. GROOMING - STEP 2: Does the patient require the assistance of a helper? Yes. GROOMING - STEP 3: How much assistance does the patient require from the helper? Cuing, coaxing, instructions, or encour agement for completion of grooming GROOMING - SCORE: 5-SUP BATHING: Activity did not occur on this shift BATHING - SCORE: 0-UNK DRESSING - UPPER BODY: Patient is not dressing in public clothing ARTICLES SCORE Total number of steps: 0 DRESSING - UPPER BODY - SCORE: 0-UNK DRESSING - LOWER BODY: Patient is not dressing in public clothing ARTICLES SCORE Total number of steps: 0 DRESSING - LOWER BODY - SCORE: 0-UNK TOILETING: TOILETING - STEP 1: Does the patient require the assistance of a person or device, or need extra time with toileting? Yes . TOILETING - STEP 2: Does the patient require the assistance of a helper? Yes. TOILETING - STEP 3: How much assistance does the patient require from the helper? Hands-on assistance from the helper TOILETING - STEP 4: Of the 3 tasks: 1) Adjusting clothing prior to use, 2) Cleansing of perineal area, 3) Adjusting clot blake after use; How many tasks does the patient perform WITHOUT assistance of the helper? One task TOILETING - SCORE: 2-MAX BLADDER MANAGEMENT: [place] cares for lr catheter including emptying drainage bag. BLADDER MANAGEMENT - SCORE: 1-DEP BOWEL MANAGEMENT: BOWEL MANAGEMENT - STEP 1: Does the patient control bowels completely and intentionally without equipment devices or medications AND is always continent? No. BOWEL MANAGEMENT - STEP 2: Does the patient require the assistance of a helper? No, patient requires medication for control such as stool softeners, suppositories, laxatives, enemas, or OTC medications BOWEL MANAGEMENT - SCORE: 6-GARRY TRANSFERS: BED, CHAIR, WHEELCHAIR: TRANSFERS: BED, CHAIR, WHEELCHAIR - STEP 1: Does the patient require assistance of a person or device, or need extra time with bed, chair, or whe elchair transfers? Yes. TRANSFERS: BED, CHAIR, WHEELCHAIR - STEP 2: Does the patient require the assistance of a helper? Yes. TRANSFERS: BED, CHAIR, WHEELCHAIR - STEP 3: How much assistance does the patient require from the helper? Lifting of the patient TRANSFERS: BED, CHAIR, WHEELCHAIR - STEP 4: Does the helper lift the patient ONLY up? ONLY down? Up AND Down? Up AND Down. TRANSFERS: BED, CHAIR, WHEELCHAIR - SCORE: 2-MAX TRANSFERS: TOILET: TRANSFERS: TOILET - STEP 1: Does the patient require the assistance of a person or device, or need extra time with toilet transfe rs? Yes. TRANSFERS: TOILET - STEP 2: Does the patient require the assistance of a helper? Yes. TRANSFERS: TOILET - STEP 3: How much assistance does the patient require from the helper? Patient performs half or more of the tr ansferring tasks TRANSFERS: TOILET - STEP 4: Does the patient need only incidental help such as contact guard or steadying during toilet transfer? No. Patient needs more than incidental help TRANSFERS: TOILET - SCORE: 3-MOD TRANSFERS: SHOWER: Activity did not occur on this shift TRANSFERS: SHOWER - SCORE: 0-UNK TRANSFERS: TUB: Activity did not occur on this shift TRANSFERS: TUB - SCORE: 0-UNK LOCOMOTION: WALK: Activity did not occur on this shift LOCOMOTION: WALK - SCORE: 0-UNK LOCOMOTION: WHEELCHAIR: Activity did not occur on this shift LOCOMOTION: WHEELCHAIR - SCORE: 0-UNK COMPREHENSION: COMPREHENSION: TYPE: Both COMPREHENSION - STEP 1: Does the patient require help from a person or device, or need extra time to understand complex and a bstract ideas (such as current events, finances, discharge planning, medical issues, relationships, e tc)? Yes. COMPREHENSION - STEP 2: Does the patient require help to understand questions or statements about basic needs or ideas (such as hunger, thirst, sleep, safety, daily schedule, room location, or discomfort) half or more of the t mattie? No. COMPREHENSION - STEP 3: How often does the patient need help to understand directions and conversation about basic needs? 25% - 49% of the time COMPREHENSION - SCORE: 3-MOD EXPRESSION EXPRESSION: TYPE: Both EXPRESSION - STEP 1: Does the patient require help from a person or device, or need extra time expressing complex and abst ract ideas (such as current events, finances, discharge planning, medical issues, relationships, etc) ? Yes. EXPRESSION - STEP 2: Does the patient require help to express basic necessities or ideas (such as hunger, thirst, sleep, s afety, daily schedule, room location, or discomfort) half or more of the time? No. EXPRESSION - STEP 3: How often does the patient need help to express directions and conversation about basic needs? 10-24% of the time EXPRESSION - SCORE: 4-MIN SOCIAL INTERACTION: SOCIAL INTERACTION - STEP 1: Does the patient require a helper to interact with others in social and therapeutic situations? No. SOCIAL INTERACTION - STEP 2: Does the patient need extra time in social situations, OR does s/he interact with staff, other patien ts, and family members ONLY in structured environments, OR does s/he require medication for social in teraction? Yes, patient needs extra time SOCIAL INTERACTION - SCORE: 6-GARRY PROBLEM SOLVING: PROBLEM SOLVING - STEP 1: Does the patient need help from a person or device, or need extra time to solve complex problems such as managing a checking account or confronting interpersonal problems? Yes. PROBLEM SOLVING - STEP 2: Does the patient solve basic routine problems half or more of the time? Yes. PROBLEM SOLVING - STEP 3: How often does the patient need help to solve basic routine problems? 25%-49% of the time PROBLEM SOLVING - SCORE: 3-MOD MEMORY: MEMORY - STEP 1: Does the patient need help from a person or device, or need extra time to remember frequently encount ered people, daily routines, and executing requests? Yes. MEMORY - STEP 2: How often does the patient need help to remember frequently encountered people, daily routines, and e xecuting requests? 25% - 49% of the time MEMORY - SCORE: 3-MOD SIGNATURE PANEL: The following modified sections: Eating - Score, Grooming - Score, Dressing - Upper Body - Score, Alcides ssing - Lower Body - Score, Toileting - Score, Bladder Management - Score, Bowel Management - Score, Transfers: Bed, Chair, Wheelchair - Score, Transfers: Toilet - Score, Transfers: Shower - Score, [place] sfers: Tub - Score, Locomotion: Walk - Score, Locomotion: Wheelchair - Score, Comprehension - Score, Expression - Score, Social Interaction - Score, Problem Solving - Score, Memory - Score were [electro nically] signed by Belén Sorto CNA on FriMar 19 2018 02:55:33 GMT-0600 (Central Standard Time)
[2018-03-19] MEDS: TRAMADOL HCL 50 MG TAB PO PRN (03:34)
[2018-03-19 06:27] LABS: Absolute Lymphocytes (CBC) 3.1 K/uL (0.7-4.9); Absolute Monocytes 1.6 K/uL (0.1-1.3); Absolute Neutrophil 12.4 K/uL (1.8-8.0); Basophils % 0.2 % (0-1.3); Eosinophils % 1.7 % (0-4.4); Hematocrit 32.9 % (39.6-49.0); Lymphocytes % 17.9 % (15.3-44.8); Monocytes % 9.1 % (3.3-12.3); RBC Red Blood Cell Count 3.86 M/uL (4.33-5.43)
[2018-03-19 06:47] LABS: Albumin 2.8 g/dL (3.4-5.0); Potassium 4.4 mmol/L (3.5-5.1); Prealbumin 21.5 mg/dL (20-40)
[2018-03-19] MEDS: DUTASTERIDE 0.5 MG CAPSULE PO SCH (08:01)
[2018-03-19] MEDS: MAGNESIUM OXIDE 400 MG TAB PO SCH (08:02)
[2018-03-19] MEDS: SODIUM CHLORIDE 1 GM TAB PO SCH ×2 (08:02→16:53)
[2018-03-19] MEDS: AMOX/K CLAV 500 MG TAB PO SCH ×2 (08:02→21:49)
[2018-03-19] MEDS: LIDOCAINE 5% PATCH TOP SCH (08:02)
[2018-03-19] MEDS: PANTOPRAZOLE 40MG TABLET PO SCH (08:03)
[2018-03-19] MEDS: VITAMIN D 1000 UNIT TAB PO SCH (08:03)
[2018-03-19] MEDS: TAMSULOSIN 0.4 MG SR CAP PO SCH (08:03)
[2018-03-19] MEDS: CLOPIDOGREL 75 MG TABLET PO SCH (08:03)
[2018-03-19] MEDS: GUAIFENESIN 600 MG SA TAB PO SCH ×2 (08:03→21:48)
[2018-03-19] MEDS: GABAPENTIN 400 MG CAP PO SCH ×3 (08:03→21:48)
[2018-03-19] MEDS: ASPIRIN EC 81 MG TAB PO SCH (08:03)
--- NOTE | 2018-03-19 12:53 | FAST ---
ENCOUNTER DATE AND TIME: 03/18/2018 08:00 ([employer]ING [employer]ORER) NAME MUNIR CHAO DATE OF : 1935 DATE OF ADMISSION: 03/17/2018 18:37 ([employer]ING LABORER) PHONE: AGE: 82 SSN# [id number] GENDER: Male ENCOUNTER PHYSICIAN: Dr. Bear Sousa M.D. 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 EATING: EATING - STEP 1: Does the patient require the assistance of a person or device, or need extra time when eating? No. EATING - SCORE: 7-IND GROOMING: GROOMING - STEP 1: Does the patient require the assistance of a person or device, or need extra time when grooming? No. GROOMING - SCORE: 7-IND BATHING: Abdomen Buttocks Chest Left arm Left lower leg and foot Left upper leg Perineal area Right arm Right lower leg and foot Right upper leg BATHING - STEP 1: Does the patient require the assistance of a person or device, or need extra time when bathing? Yes. BATHING - STEP 2: Does the patient require the assistance of a helper? Yes. BATHING - STEP 3: How much assistance does the patient require from the helper? More than just incidental help BATHING - STEP 4: What percent of the body parts did the patient bathe WITHOUT the helper? Half or more of the body par ts BATHING - SCORE: 3-MOD DRESSING - UPPER BODY: T-shirt/pullover shirt (four steps) ARTICLES SCORE Total number of steps: 4 DRESSING - UPPER BODY - STEP 1: Does the patient require help from a person or device, or need extra time when dressing above the tomas st? Yes. DRESSING - UPPER BODY - STEP 2: Does the patient require the assistance of a helper? Yes. DRESSING - UPPER BODY - STEP 3: Does the helper touch the patient while dressing? Yes. DRESSING - UPPER BODY - STEP 4: How many of the total steps does the patient complete on his/her own? 1 DRESSING - UPPER BODY - STEP 5: Does Patient require total assistance for dressing above the waist such as the helper holding clothin g and performing basically all the activities? No. DRESSING - UPPER BODY - SCORE: 2-MAX DRESSING - LOWER BODY: Elastic waist pants (three steps) Sock - Left foot (one step) Sock - Right foot (one step) Underwear (three steps) ARTICLES SCORE Total number of steps: 8 DRESSING - LOWER BODY - STEP 1: Does the patient require help from a person or device, or need extra time when dressing below the tomas st? Yes. DRESSING - LOWER BODY - STEP 2: Does the patient require the assistance of a helper? Yes. DRESSING - LOWER BODY - STEP 3: Does the helper touch the patient while dressing? Yes. DRESSING - LOWER BODY - STEP 4: How many of the total steps does the patient complete on his/her own? 0 DRESSING - LOWER BODY - STEP 5: Does patient require total assistance for dressing below the waist such as the helper holding clothin g and performing basically all the activities? Yes. DRESSING - LOWER BODY - SCORE: 1-DEP TOILETING: TOILETING - STEP 1: Does the patient require the assistance of a person or device, or need extra time with toileting? Yes . TOILETING - STEP 2: Does the patient require the assistance of a helper? Yes. TOILETING - STEP 3: How much assistance does the patient require from the helper? Hands-on assistance from the helper TOILETING - STEP 4: Of the 3 tasks: 1) Adjusting clothing prior to use, 2) Cleansing of perineal area, 3) Adjusting clot blake after use; How many tasks does the patient perform WITHOUT assistance of the helper? One task TOILETING - SCORE: 2-MAX BLADDER MANAGEMENT: Activity did not occur on this shift BLADDER MANAGEMENT - SCORE: 7-IND BOWEL MANAGEMENT: Activity did not occur on this shift BOWEL MANAGEMENT - SCORE: 7-IND TRANSFERS: BED, CHAIR, WHEELCHAIR: Activity did not occur on this shift TRANSFERS: BED, CHAIR, WHEELCHAIR - SCORE: 0-UNK TRANSFERS: TOILET: TRANSFERS: TOILET - STEP 1: Does the patient require the assistance of a person or device, or need extra time with toilet transfe rs? Yes. TRANSFERS: TOILET - STEP 2: Does the patient require the assistance of a helper? Yes. TRANSFERS: TOILET - STEP 3: How much assistance does the patient require from the helper? Patient performs less than half of the transferring tasks TRANSFERS: TOILET - STEP 4: Does the patient require total assistance for the toilet transfer such as the helper doing basically all the lifting? No. TRANSFERS: TOILET - SCORE: 2-MAX TRANSFERS: SHOWER: Activity did not occur on this shift TRANSFERS: SHOWER - SCORE: 0-UNK TRANSFERS: TUB: TRANSFERS: TUB - STEP 1: Does the patient require the assistance of a person or device, or need extra time with tub transfers? Yes. TRANSFERS: TUB - STEP 2: Does the patient require the assistance of a helper? Yes. TRANSFERS: TUB - STEP 3: How much assistance does the patient require from the helper? More than incidental help TRANSFERS: TUB - STEP 4: How much more help does the patient require from the helper? [place] lifts patient up out of the wheel chair AND down onto the tub bench TRANSFERS: TUB - SCORE: 2-MAX LOCOMOTION: WALK: Activity did not occur on this shift LOCOMOTION: WALK - SCORE: 0-UNK LOCOMOTION: WHEELCHAIR: Activity did not occur on this shift LOCOMOTION: WHEELCHAIR - SCORE: 0-UNK LOCOMOTION: STAIRS: Activity did not occur on this shift LOCOMOTION: STAIRS - SCORE: 0-UNK COMPREHENSION: COMPREHENSION: TYPE: Both COMPREHENSION - STEP 1: Does the patient require help from a person or device, or need extra time to understand complex and a bstract ideas (such as current events, finances, discharge planning, medical issues, relationships, e tc)? No. COMPREHENSION - STEP 2: Does the patient need extra time, require an assistive device (such as glasses for visual comprehensi on or a hearing aid for auditory comprehension) or does s/he have mild difficulty understanding compl ex and abstract information? Yes. COMPREHENSION - SCORE: 6-GARRY EXPRESSION EXPRESSION: TYPE: Both EXPRESSION - STEP 1: Does the patient require help from a person or device, or need extra time expressing complex and abst ract ideas (such as current events, finances, discharge planning, medical issues, relationships, etc) ? No. EXPRESSION - STEP 2: Does the patient need extra time, require an assistive device (such as augmentive communication syste m or a communication board), OR does s/he have mild difficulty expressing complex and abstract ideas (including mild dysarthria or mild word-find problems)? Yes. EXPRESSION - SCORE: 6-GARRY SOCIAL INTERACTION: SOCIAL INTERACTION - STEP 1: Does the patient require a helper to interact with others in social and therapeutic situations? No. SOCIAL INTERACTION - STEP 2: Does the patient need extra time in social situations, OR does s/he interact with staff, other patien ts, and family members ONLY in structured environments, OR does s/he require medication for social in teraction? Yes, patient needs extra time SOCIAL INTERACTION - SCORE: 6-GARRY PROBLEM SOLVING: PROBLEM SOLVING - STEP 1: Does the patient need help from a person or device, or need extra time to solve complex problems such as managing a checking account or confronting interpersonal problems? No. PROBLEM SOLVING - STEP 2: Does the patient require extra time to make decisions or solve problems, OR does s/he have slight dif ficulty reading, initiating, or self-correcting in unfamiliar situations? Yes, patient needs extra ti me. PROBLEM SOLVING - SCORE: 6-GARRY MEMORY: MEMORY - STEP 1: Does the patient need help from a person or device, or need extra time to remember frequently encount ered people, daily routines, and executing requests? No. MEMORY - STEP 2: Does the patient have slight difficulty recognizing frequently encountered people, daily routines, or executing requests without the need for repetition or using self-initiated or environmental cues to remember? Yes. MEMORY - SCORE: 6-GARRY SIGNATURE PANEL: The following modified sections: Eating - Score, Grooming - Score, Bathing - Score, Dressing - Upper Body - Score, Dressing - Lower Body - Score, Toileting - Score, Transfers: Bed, Chair, Wheelchair - S core, Transfers: Toilet - Score, Transfers: Shower - Score, Transfers: Tub - Score, Comprehension - S core, Expression - Score, Social Interaction - Score, Problem Solving - Score, Memory - Score were [e lectronically] signed by Jodie Hodges OT on FriMar 19 2018 12:52:28 T-0600 (Central Standard T mattie)
--- NOTE | 2018-03-19 14:31 | FAST ---
SHIFT START DATE/TIME: 03/19/2018 07:00 (BOSOM PRESSER) SHIFT END DATE/TIME: 03/19/2018 19:00 (BOSOM PRESSER) NAME MUNIR CHAO DATE OF : 1935 DATE OF ADMISSION: 03/17/2018 18:37 (BOSOM PRESSER) PHONE: AGE: 82 SSN# [id number] GENDER: Male ENCOUNTER PHYSICIAN: Dr. Bear Sousa M.D. 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 EATING: EATING - STEP 1: Does the patient require the assistance of a person or device, or need extra time when eating? Yes. EATING - STEP 2: Does the patient require the assistance of a helper? Yes. EATING - STEP 3: Does the patient perform half or more of the eating tasks? Yes. EATING - STEP 4: Does the patient need only supervision, cuing, coaxing OR help to apply an orthosis OR help to cut fo od, open containers, pour liquids, or butter bread? Yes. EATING - SCORE: 5-SUP GROOMING: Activity did not occur on this shift GROOMING - SCORE: 0-UNK BATHING: Activity did not occur on this shift BATHING - SCORE: 0-UNK DRESSING - UPPER BODY: Activity did not occur on this shift ARTICLES SCORE Total number of steps: 0 DRESSING - UPPER BODY - SCORE: 0-UNK DRESSING - LOWER BODY: Activity did not occur on this shift ARTICLES SCORE Total number of steps: 0 DRESSING - LOWER BODY - SCORE: 0-UNK TOILETING: Activity did not occur on this shift TOILETING - SCORE: 0-UNK TOILETING - COMMENTS: Pt has lr BLADDER MANAGEMENT: Ariel cares for lr catheter including emptying drainage bag. BLADDER MANAGEMENT - SCORE: 1-DEP BLADDER MANAGEMENT - FREQUENCY OF ACCIDENTS: BLADDER MANAGEMENT(FA) - STEP 1: How many accidents has the patient had during the current shift? 0 BOWEL MANAGEMENT: Activity did not occur on this shift BOWEL MANAGEMENT - SCORE: 7-IND BOWEL MANAGEMENT - FREQUENCY OF ACCIDENTS: BOWEL MANAGEMENT(FA) - STEP 1: How many accidents has the patient had during the current shift? 0 TRANSFERS: BED, CHAIR, WHEELCHAIR: TRANSFERS: BED, CHAIR, WHEELCHAIR - STEP 1: Does the patient require assistance of a person or device, or need extra time with bed, chair, or whe elchair transfers? Yes. TRANSFERS: BED, CHAIR, WHEELCHAIR - STEP 2: Does the patient require the assistance of a helper? Yes. TRANSFERS: BED, CHAIR, WHEELCHAIR - STEP 3: How much assistance does the patient require from the helper? Lifting of the legs TRANSFERS: BED, CHAIR, WHEELCHAIR - STEP 4: How many legs does the patient require the helper to lift? both legs TRANSFERS: BED, CHAIR, WHEELCHAIR - SCORE: 3-MOD TRANSFERS: TOILET: Activity did not occur on this shift TRANSFERS: TOILET - SCORE: 0-UNK TRANSFERS: TOILET - COMMENTS: Pt has lr TRANSFERS: SHOWER: Activity did not occur on this shift TRANSFERS: SHOWER - SCORE: 0-UNK TRANSFERS: TUB: Activity did not occur on this shift TRANSFERS: TUB - SCORE: 0-UNK LOCOMOTION: WALK: Activity did not occur on this shift LOCOMOTION: WALK - SCORE: 0-UNK LOCOMOTION: WHEELCHAIR: LOCOMOTION: WHEELCHAIR - STEP 1: Does the patient need help to go 150 feet in a wheelchair? Yes. LOCOMOTION: WHEELCHAIR - STEP 2: How much assistance does the patient need from the helper? Only supervision, cuing, or coaxing LOCOMOTION: WHEELCHAIR - SCORE: 5-SUP COMPREHENSION: COMPREHENSION: TYPE: Both COMPREHENSION - STEP 1: Does the patient require help from a person or device, or need extra time to understand complex and a bstract ideas (such as current events, finances, discharge planning, medical issues, relationships, e tc)? Yes. COMPREHENSION - STEP 2: Does the patient require help to understand questions or statements about basic needs or ideas (such as hunger, thirst, sleep, safety, daily schedule, room location, or discomfort) half or more of the t mattie? No. COMPREHENSION - STEP 3: How often does the patient need help to understand directions and conversation about basic needs? Les s than 10% of the time COMPREHENSION - SCORE: 5-SUP EXPRESSION EXPRESSION: TYPE: Both EXPRESSION - STEP 1: Does the patient require help from a person or device, or need extra time expressing complex and abst ract ideas (such as current events, finances, discharge planning, medical issues, relationships, etc) ? Yes. EXPRESSION - STEP 2: Does the patient require help to express basic necessities or ideas (such as hunger, thirst, sleep, s afety, daily schedule, room location, or discomfort) half or more of the time? No. EXPRESSION - STEP 3: How often does the patient need help to express directions and conversation about basic needs? Less t schneider 10% of the time EXPRESSION - SCORE: 5-SUP SOCIAL INTERACTION: SOCIAL INTERACTION - STEP 1: Does the patient require a helper to interact with others in social and therapeutic situations? No. SOCIAL INTERACTION - STEP 2: Does the patient need extra time in social situations, OR does s/he interact with staff, other patien ts, and family members ONLY in structured environments, OR does s/he require medication for social in teraction? Yes, patient needs extra time SOCIAL INTERACTION - SCORE: 6-GARRY PROBLEM SOLVING: PROBLEM SOLVING - STEP 1: Does the patient need help from a person or device, or need extra time to solve complex problems such as managing a checking account or confronting interpersonal problems? Yes. PROBLEM SOLVING - STEP 2: Does the patient solve basic routine problems half or more of the time? Yes. PROBLEM SOLVING - STEP 3: How often does the patient need help to solve basic routine problems? 10%-24% of the time PROBLEM SOLVING - SCORE: 4-MIN MEMORY: MEMORY - STEP 1: Does the patient need help from a person or device, or need extra time to remember frequently encount ered people, daily routines, and executing requests? Yes. MEMORY - STEP 2: How often does the patient need help to remember frequently encountered people, daily routines, and e xecuting requests? Less than 10% of the time MEMORY - SCORE: 5-SUP SIGNATURE PANEL: The following modified sections: Eating - Score, Grooming - Score, Bathing - Score, Dressing - Upper Body - Score, Dressing - Lower Body - Score, Toileting - Score, Toileting - Comments:, Bladder Manage ment - Score, Bowel Management - Score, Transfers: Bed, Chair, Wheelchair - Score, Transfers: Toilet - Score, Transfers: Toilet - Comments:, Transfers: Shower - Score, Transfers: Tub - Score, Locomotion : Walk - Score, Locomotion: Wheelchair - Score, Comprehension - Score, Expression - Score, Social Int eraction - Score, Problem Solving - Score, Memory - Score were [electronically] signed by Cyn vu C.N.ACasa on FriMar 19 2018 14:30:11 GMT-0600 (Central Standard Time)
--- NOTE | 2018-03-19 16:24 | FAST ---
ENCOUNTER DATE AND TIME: 03/19/2018 08:00 (ETHANOL MAINTENANCE MECHANIC) NAME MUNIR CHAO DATE OF : 1935 DATE OF ADMISSION: 03/17/2018 18:37 (ETHANOL MAINTENANCE MECHANIC) PHONE: AGE: 82 SSN# [id number] GENDER: Male ENCOUNTER PHYSICIAN: Dr. Bear Sousa M.D. 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 EATING: Activity did not occur on this shift EATING - SCORE: 0-UNK GROOMING: Activity did not occur on this shift GROOMING - SCORE: 0-UNK BATHING: Activity did not occur on this shift BATHING - SCORE: 0-UNK DRESSING - UPPER BODY: Activity did not occur on this shift Patient is not dressing in public clothing ARTICLES SCORE Total number of steps: 0 DRESSING - UPPER BODY - SCORE: 0-UNK DRESSING - LOWER BODY: Activity did not occur on this shift Patient is not dressing in public clothing ARTICLES SCORE Total number of steps: 0 DRESSING - LOWER BODY - SCORE: 0-UNK TOILETING: Activity did not occur on this shift TOILETING - SCORE: 0-UNK BLADDER MANAGEMENT: Activity did not occur on this shift BLADDER MANAGEMENT - SCORE: 7-IND BOWEL MANAGEMENT: Activity did not occur on this shift BOWEL MANAGEMENT - SCORE: 7-IND TRANSFERS: BED, CHAIR, WHEELCHAIR: TRANSFERS: BED, CHAIR, WHEELCHAIR - STEP 1: Does the patient require assistance of a person or device, or need extra time with bed, chair, or whe elchair transfers? Yes. TRANSFERS: BED, CHAIR, WHEELCHAIR - STEP 2: Does the patient require the assistance of a helper? Yes. TRANSFERS: BED, CHAIR, WHEELCHAIR - STEP 3: How much assistance does the patient require from the helper? Lifting of the legs TRANSFERS: BED, CHAIR, WHEELCHAIR - STEP 4: How many legs does the patient require the helper to lift? both legs TRANSFERS: BED, CHAIR, WHEELCHAIR - SCORE: 3-MOD TRANSFERS: TOILET: Activity did not occur on this shift TRANSFERS: TOILET - SCORE: 0-UNK TRANSFERS: SHOWER: Activity did not occur on this shift TRANSFERS: SHOWER - SCORE: 0-UNK TRANSFERS: TUB: Activity did not occur on this shift TRANSFERS: TUB - SCORE: 0-UNK LOCOMOTION: WALK: LOCOMOTION: WALK - STEP 1: Does the patient need help from a person or device, or need extra time to walk 150 feet? Yes. LOCOMOTION: WALK - STEP 2: How much assistance does the patient require to walk a minimum of 150 feet? Patient walks less than 1 50 feet - but more than 50 feet - with the assistance of only one helper LOCOMOTION: WALK - SCORE: 2-MAX LOCOMOTION: WHEELCHAIR: LOCOMOTION: WHEELCHAIR - STEP 1: Does the patient need help to go 150 feet in a wheelchair? Yes. LOCOMOTION: WHEELCHAIR - STEP 2: How much assistance does the patient need from the helper? Only incidental help such as around corner s or over thresholds LOCOMOTION: WHEELCHAIR - SCORE: 4-MIN LOCOMOTION: STAIRS: Activity did not occur on this shift LOCOMOTION: STAIRS - SCORE: 0-UNK COMPREHENSION: COMPREHENSION - SCORE: 0-UNK EXPRESSION EXPRESSION - SCORE: 0-UNK SOCIAL INTERACTION: SOCIAL INTERACTION - SCORE: 0-UNK PROBLEM SOLVING: PROBLEM SOLVING - SCORE: 0-UNK MEMORY: MEMORY - SCORE: 0-UNK SIGNATURE PANEL: The following modified sections: Transfers: Bed, Chair, Wheelchair - Score, Transfers: Toilet - Score , Locomotion: Walk - Score, Locomotion: Wheelchair - Score, Locomotion: Stairs - Score were [electron asael] signed by Elie Anthony PTA on FriMar 19 2018 16:24:08 GMT-0600 (Central Standard Time)
[2018-03-19] MEDS: ENOXAPARIN 40 MG/0.4 ML SQ SCH (16:53)
--- NOTE | 2018-03-19 18:22 | R.PN ---
ENCOUNTER DATE AND TIME: 03/19/2018 18:19 (ARMY MANAGER) NAME MUNIR CHAO DATE OF : 1935 DATE OF ADMISSION: 03/17/2018 18:37 (ARMY MANAGER) Spinal stenosisCHIEF COMPLAINT: Spinal stenosis, S/P decompression SUBJECTIVE: Pt denied any depression. Pt denied any Shortness of Breath. Patient states that pain is under control. Ambulated 142' with contact guard assistance using a rolling walker. Propelled wheelchair 160' with contact guard assistance. Ambulated 500' with standby assistance using a rolling walker. VITAL SIGNS Temperature: 98 F SBP/DBP: 137/72 Pulse: 51 Resp: 16 MEDICATION ALLERGIES: LEVOFLOXACIN INFLUENZA VIRUS VACCINE codeine ENVIRONMENTAL ALLERGIES: - Substance Allergies None Known - Other Allergies None Known NURSING: - Shower allowing shower - Bladder care per protocol - Skin care per protocol ACTIVITIES OOB only with supervision THERAPIES: - Orthotics/Prosthetics Orthotic Evaluation. Splinting/Casting. - Occupational Therapy Evaluate and Treat. - Physical Therapy Evaluate and Treat. PHYSICAL EXAM - Gen Alert and awake Lying in bed No apparent distress Oriented to: person, time, and place - Skin No beakdown No abnormalities - Eyes No abnormalities - ENMT No abnormalities - Neck No abnormalities - CVS RRR - Chest Clear - Abd + bowel sounds - GI nondistended Deferred - Frequent urination due to UTI. - Ext Mild bilateral lower extremity edema. - MSK 4+/5 weakness in both lower extremities. Back muscle spasms. - Neuro 4/5 strength bilaterally lower extremities. - Psych No abnormalities ASSESSMENT: Pt. 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 was independent/mod-I in Self-Care, Sphincter Control, Transfe rs Control, and Locomotion; and he had good Sphincter Control.Currently, he has deficits of Balance, Self-Care, Endurance, Safety Awareness, Transfers Control, Communication, Social Cognition, and Locom otion.Pt. is now referred to [facility] for acute in-patient rehabilitation in order to maximize patient's functional independence in activities of daily living, strength, ROM, an d mobility.- Rehab Goal Patient has realistic goal of being discharged at assistance level 6-Laura to reside at Home with Fam francine/Relatives. MDM/PLAN: - Physical Therapy Gait dysfunction - to improve, our physical therapists will perform initial evaluation of pt's statu s upon admission and devise an individualized program for Gait Training, and Wheel Chair mobility Inability to transfer - to improve, our physical therapists will perform initial evaluation of pt's status upon admission and devise an individualized program for Bed mobility Need for home safety evaluation - to improve, our physical therapists will perform initial evaluatio n of pt's status upon admission and devise an individualized program for Home Evaluation Need in caregiver upon discharge - to improve, our physical therapists will perform initial evaluati on of pt's status upon admission and devise an individualized program for Caregiver Training Edema - to improve, our physical therapists will perform initial evaluation of pt's status upon admis jasen and devise an individualized program for Elevation Training, and Lymphedema Therapy New precaution - to improve, our physical therapists will perform initial evaluation of pt's status upon admission and devise an individualized program for Patient precaution education Poor balance - to improve, our physical therapists will perform initial evaluation of pt's status up on admission and devise an individualized program for Balance Training Poor endurance - to improve, our physical therapists will perform initial evaluation of pt's status upon admission and devise an individualized program for Endurance Training Weakness - to improve, our physical therapists will perform initial evaluation of pt's status upon a dmission and devise an individualized program for Aquatic Therapy, Neuromuscular Reeducation, and Str engthening Achieving independence - to improve, our physical therapists will perform initial evaluation of pt's status upon admission and devise an individualized program for Community Reintegration Activities - Occupational Therapy ADL deficits - to improve, our occupation therapists will perform initial evaluation of pt's status upon admission and devise an individualized program for Bathing, Bed mobility, Community Reintegratio n, Cooking, Dressing, Eating, Fine Motor Skills, Grooming, Homemaking, Kitchen Mobility, Laundry, Pat ient Education, Safety Awareness, Splinting - Positioning, Transfers(Toilet, Tub, Shower), and Wheel Chair Management Cognitive deficits - to improve, our occupation therapists will perform initial evaluation of pt's s tatus upon admission and devise an individualized program for Cognition - orientation Need for care manager - to improve, our occupation therapists will perform initial evaluation of pt's status upon admission and devise an individualized program for Caregiver Training Weakness - to improve, our occupation therapists will perform initial evaluation of pt's status upon admission and devise an individualized program for Aquatic Therapy, Balance, Endurance, UE ROM, and UE strengthening - Diet Type Continue Regular - Diet - Liquid Texture Continue Regular - Tube Feed Continue N/A - Bladder care per protocol - Skin care per protocol - Diet - Solid Texture Continue Regular - Shower allowing shower FUNCTIONAL STATUS: UPDATED AT WEEKLY TEAM CONFERENCE - Bladder Same accident frequency: 7-Ind - No accidents in the past 7 days - Bowel Same accident frequency: 7-Ind - No accidents in the past 7 days - Walking Same score based on distance walked: 2(50-149ft) FUNCTIONAL STATUS: - Self-Care A. Eating sup B. Grooming sup C. Bathing sup D. Dressing - Upper Umesh E. Dressing - Lower modA F. Toileting Ind - Sphincter Control G: Bladder control Dep H: Bowel control Dep - Transfers Control I. Bed/Chair/Wheelchair modA J. Toilet modA K. Tub/Shower modA - Locomotion L. Walk/Wheelchair (B) modA M. Stairs ADNO - Communication N. Comprehension (B) modA O. Expression (B) sup - Social Cognition P. Social Interaction sup Q. Problem Solving Umesh R. Memory Umesh - Endurance Fair - Balance Poor - Safety Awareness Poor CURRENT FUNC. DEFICITS: Balance, Self-Care, Endurance, Safety Awareness, Transfers Control, Communication, Social Cognition, and Locomotion SIGNATURE PANEL: (ARMY MANAGER)
[2018-03-19] MEDS: HYDROCODONE/APAP 5/325 MG TAB PO SCH ×2 (18:53→23:21)
[2018-03-19] MEDS: ATORVASTATIN 40 MG TAB PO SCH (21:48)
--- NOTE | 2018-03-19 22:45 | PN ---
Subjective: The patient is stable, doing well. Objective: They are achieving about 300 cc of postvoid residual. The patient is sensing bladder. Plan: Continue bladder training, clamping and releasing every 4-6 hours, trying to keep the volume b elow 500 cc each time. If it is more than 500 cc, then clamp and release more frequently. FIDELIA/MILENA Voice ID: [id number] Report ID: [id number]
[2018-03-19] MEDS: MELATONIN 3 MG TABLET PO PRN (23:21)
--- NOTE | 2018-03-20 01:21 | FAST ---
SHIFT START DATE/TIME: 03/19/2018 19:00 (TECHNICAL BUSINESS ANALYST) SHIFT END DATE/TIME: 03/20/2018 07:00 (TECHNICAL BUSINESS ANALYST) NAME MUNIR CHAO DATE OF : 1935 DATE OF ADMISSION: 03/17/2018 18:37 (TECHNICAL BUSINESS ANALYST) PHONE: AGE: 82 SSN# [id number] GENDER: Male ENCOUNTER PHYSICIAN: Dr. Bear Sousa M.D. 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 EATING: Activity did not occur on this shift EATING - SCORE: 0-UNK GROOMING: Activity did not occur on this shift GROOMING - SCORE: 0-UNK BATHING: Activity did not occur on this shift BATHING - SCORE: 0-UNK DRESSING - UPPER BODY: Patient is not dressing in public clothing ARTICLES SCORE Total number of steps: 0 DRESSING - UPPER BODY - SCORE: 0-UNK DRESSING - LOWER BODY: Patient is not dressing in public clothing ARTICLES SCORE Total number of steps: 0 DRESSING - LOWER BODY - SCORE: 0-UNK TOILETING: Activity did not occur on this shift TOILETING - SCORE: 0-UNK BLADDER MANAGEMENT: [place] removes incontinent device (Depends, pull ups, etc.); cleans the patient after accident / inco ntinent episode; and, applies new incontinent device. BLADDER MANAGEMENT - SCORE: 1-DEP BOWEL MANAGEMENT: Activity did not occur on this shift BOWEL MANAGEMENT - SCORE: 7-IND TRANSFERS: BED, CHAIR, WHEELCHAIR: Activity did not occur on this shift TRANSFERS: BED, CHAIR, WHEELCHAIR - SCORE: 0-UNK TRANSFERS: TOILET: Activity did not occur on this shift TRANSFERS: TOILET - SCORE: 0-UNK TRANSFERS: SHOWER: Activity did not occur on this shift TRANSFERS: SHOWER - SCORE: 0-UNK TRANSFERS: TUB: Activity did not occur on this shift TRANSFERS: TUB - SCORE: 0-UNK LOCOMOTION: WALK: Activity did not occur on this shift LOCOMOTION: WALK - SCORE: 0-UNK LOCOMOTION: WHEELCHAIR: Activity did not occur on this shift LOCOMOTION: WHEELCHAIR - SCORE: 0-UNK COMPREHENSION: COMPREHENSION: TYPE: Both COMPREHENSION - STEP 1: Does the patient require help from a person or device, or need extra time to understand complex and a bstract ideas (such as current events, finances, discharge planning, medical issues, relationships, e tc)? Yes. COMPREHENSION - STEP 2: Does the patient require help to understand questions or statements about basic needs or ideas (such as hunger, thirst, sleep, safety, daily schedule, room location, or discomfort) half or more of the t mattie? No. COMPREHENSION - STEP 3: How often does the patient need help to understand directions and conversation about basic needs? 10% - 24% of the time COMPREHENSION - SCORE: 4-MIN EXPRESSION EXPRESSION: TYPE: Both EXPRESSION - STEP 1: Does the patient require help from a person or device, or need extra time expressing complex and abst ract ideas (such as current events, finances, discharge planning, medical issues, relationships, etc) ? No. EXPRESSION - STEP 2: Does the patient need extra time, require an assistive device (such as augmentive communication syste m or a communication board), OR does s/he have mild difficulty expressing complex and abstract ideas (including mild dysarthria or mild word-find problems)? Yes. EXPRESSION - SCORE: 6-GARRY SOCIAL INTERACTION: SOCIAL INTERACTION - STEP 1: Does the patient require a helper to interact with others in social and therapeutic situations? No. SOCIAL INTERACTION - STEP 2: Does the patient need extra time in social situations, OR does s/he interact with staff, other patien ts, and family members ONLY in structured environments, OR does s/he require medication for social in teraction? Yes, patient needs extra time SOCIAL INTERACTION - SCORE: 6-GARRY PROBLEM SOLVING: PROBLEM SOLVING - STEP 1: Does the patient need help from a person or device, or need extra time to solve complex problems such as managing a checking account or confronting interpersonal problems? Yes. PROBLEM SOLVING - STEP 2: Does the patient solve basic routine problems half or more of the time? Yes. PROBLEM SOLVING - STEP 3: How often does the patient need help to solve basic routine problems? 25%-49% of the time PROBLEM SOLVING - SCORE: 3-MOD MEMORY: MEMORY - STEP 1: Does the patient need help from a person or device, or need extra time to remember frequently encount ered people, daily routines, and executing requests? Yes. MEMORY - STEP 2: How often does the patient need help to remember frequently encountered people, daily routines, and e xecuting requests? 25% - 49% of the time MEMORY - SCORE: 3-MOD SIGNATURE PANEL: The following modified sections: Eating - Score, Grooming - Score, Dressing - Upper Body - Score, Alcides ssing - Lower Body - Score, Toileting - Score, Bladder Management - Score, Bowel Management - Score, Transfers: Bed, Chair, Wheelchair - Score, Transfers: Toilet - Score, Transfers: Shower - Score, Bustillo sfers: Tub - Score, Locomotion: Walk - Score, Locomotion: Wheelchair - Score, Comprehension - Score, Expression - Score, Social Interaction - Score, Problem Solving - Score, Memory - Score were [electro nically] signed by Belén Sorto CNA on FriMar 20 2018 01:20:28 GMT-0600 (Central Standard Time)
[2018-03-20] MEDS: TRAMADOL HCL 50 MG TAB PO PRN ×2 (01:26→21:20)
[2018-03-20] MEDS: ALBUTEROL 2.5 MG/3 ML NEB SOL NEB SCH ×4 (02:00→19:27)
[2018-03-20] MEDS: IPRATROPIUM BROM 0.5MG/2.5ML IH SCH ×4 (02:00→19:27)
[2018-03-20] MEDS: HYDROCODONE/APAP 5/325 MG TAB PO SCH ×6 (03:00→22:41)
[2018-03-20] MEDS: METHOCARBAMOL 500 MG TAB PO PRN (03:04)
[2018-03-20] MEDS: PANTOPRAZOLE 40MG TABLET PO SCH (06:40)
[2018-03-20] MEDS: DUTASTERIDE 0.5 MG CAPSULE PO SCH (08:00)
[2018-03-20] MEDS: MAGNESIUM OXIDE 400 MG TAB PO SCH (08:00)
[2018-03-20] MEDS: ASPIRIN EC 81 MG TAB PO SCH (08:06)
[2018-03-20] MEDS: SODIUM CHLORIDE 1 GM TAB PO SCH ×2 (08:06→16:28)
[2018-03-20] MEDS: TAMSULOSIN 0.4 MG SR CAP PO SCH (08:06)
[2018-03-20] MEDS: LIDOCAINE 5% PATCH TOP SCH (08:07)
[2018-03-20] MEDS: VITAMIN D 1000 UNIT TAB PO SCH (08:07)
[2018-03-20] MEDS: CLOPIDOGREL 75 MG TABLET PO SCH (08:07)
[2018-03-20] MEDS: AMOX/K CLAV 500 MG TAB PO SCH ×2 (08:07→19:49)
[2018-03-20] MEDS: GUAIFENESIN 600 MG SA TAB PO SCH ×2 (08:07→19:49)
[2018-03-20] MEDS: GABAPENTIN 400 MG CAP PO SCH ×3 (08:07→19:50)
--- NOTE | 2018-03-20 09:31 | P.RH.PN ---
Estimated Length of Stay: 15 Expected Discharge Date: 03/31/18 Discharge Disposition Plan: Home Family Support: Yes Prison Goal: Mobility, Transfers, Self Care Vital Signs: Last Vital Signs Temp 98.4 F 03/20/18 07:35 Pulse 114 H 03/20/18 07:35 Resp 18 03/20/18 07:35 BP 113/69 03/20/18 07:35 Pulse Ox 92 03/20/18 07:35 Laboratory: Laboratory Last Values WBC 17.5 K/uL (4.3-10.9) H 03/19/18 06:05 RBC 3.86 M/uL (4.33-5.43) L 03/19/18 06:05 Hgb 10.9 g/dL (13.6-17.9) L 03/19/18 06:05 Hct 32.9 % (39.6-49.0) L 03/19/18 06:05 MCV 85.3 fL (80-100) 03/19/18 06:05 MCH 28.2 pg (27.0-35.0) 03/19/18 06:05 MCHC 33.1 g/dL (32.0-36.0) 03/19/18 06:05 RDW 13.7 % (12.1-15.2) 03/19/18 06:05 Plt Count 489 K/uL (152-406) H 03/19/18 06:05 MPV 8.0 fL (7.6-11.3) 03/19/18 06:05 Neutrophils % 71.1 % (41.7-73.7) 03/19/18 06:05 Lymphocytes % 17.9 % (15.3-44.8) 03/19/18 06:05 Monocytes % 9.1 % (3.3-12.3) 03/19/18 06:05 Eosinophils % 1.7 % (0-4.4) 03/19/18 06:05 Basophils % 0.2 % (0-1.3) 03/19/18 06:05 Absolute Neutrophils 12.4 K/uL (1.8-8.0) H 03/19/18 06:05 Absolute Lymphocytes 3.1 K/uL (0.7-4.9) 03/19/18 06:05 Absolute Monocytes 1.6 K/uL (0.1-1.3) H 03/19/18 06:05 Absolute Eosinophils 0.3 K/uL (0-0.5) 03/19/18 06:05 Absolute Basophils 0.0 K/uL (0-0.5) 03/19/18 06:05 Sodium 134 mmol/L (136-145) L 03/19/18 06:05 Potassium 4.4 mmol/L (3.5-5.1) 03/19/18 06:05 Chloride 99 mmol/L (98-107) 03/19/18 06:05 Carbon Dioxide 28 mmol/L (21-32) 03/19/18 06:05 BUN 26 mg/dL (7-18) H 03/19/18 06:05 Creatinine 0.88 mg/dL (0.55-1.3) 03/19/18 06:05 Estimated GFR 83 mL/min (=/>90) L 03/19/18 06:05 Glucose 122 mg/dL (74-106) H 03/19/18 06:05 Calcium 8.8 mg/dL (8.5-10.1) 03/19/18 06:05 Magnesium 1.7 mg/dL (1.8-2.4) L 03/18/18 06:05 Albumin 2.8 g/dL (3.4-5.0) L 03/19/18 06:05 Prealbumin 21.5 mg/dL (20-40) 03/19/18 06:05 Urine Color Yellow 03/17/18 22:15 Urine Appearance Cloudy 03/17/18 22:15 Urine pH 6.0 (5.0-7.0) 03/17/18 22:15 Ur Specific [place] 1.025 (1.005-1.030) 03/17/18 22:15 Urine Ketones Negative (NEG) 03/17/18 22:15 Urine Blood 3+ (NEG) H 03/17/18 22:15 Urine Nitrite Negative (NEG) 03/17/18 22:15 Urine Bilirubin Negative (NEG) 03/17/18 22:15 Urine Urobilinogen 0.2 mg/dL (0.2-1.0) 03/17/18 22:15 Ur Leukocyte Esterase 2+ (NEG) H 03/17/18 22:15 Urine RBC Tntc /HPF (NONE SEEN) H 03/17/18 22:15 Urine WBC 20-50 /HPF (<5) H 03/17/18 22:15 Ur Squamous Epith Cells <5 /HPF (NONE SEEN) 03/17/18 22:15 Urine Bacteria 20-50 /HPF (NONE SEEN) H 03/17/18 22:15 Urine Culture Reflexed Not needed 03/17/18 22:15 Urine Glucose Negative (NEG) 03/17/18 22:15 Urine Total Protein Trace (NEG) 03/17/18 22:15 Weight: 150 lb 4.8 oz Wound Present: No Closed Surgical Incision Present: Yes Negative Pressure Wound Therapy Present: No Physician Update: He is doing fairly well with all therapy. Ambulate 90' with contact guard assistance. He has significant pain in the back with transfers and ambulation. His pain is mildly better today. Dr. Orellana has him on augmentin. Pain Issues: [place] 10/325mg Q4H PRN. Tramadol 50mg Q8H PRN Functional Improvement: Patient is working toward short-term goals at this time. Patient presents w/ Mod A for sit <> stand transfers, however presents w / Min A for gait tx. and stand pivot transfers. Patient presents w/ cognition issues and fatigues quickly. Functional Improvement Occupational Therapy: Patient is participatory, however, pain affects his performance, and significant fatigue. Summary: Patient's care plan and ferry terminal agent goals have been reviewed and revised as necessary. Please see the Rehabilitation Signature page for all necessary signatures.
--- NOTE | 2018-03-20 10:58 | FAST ---
SHIFT START DATE/TIME: 03/20/2018 07:00 (MULE DEVELOPER) SHIFT END DATE/TIME: 03/20/2018 19:00 (MULE DEVELOPER) NAME MUNIR CHAO DATE OF : 1935 DATE OF ADMISSION: 03/17/2018 18:37 (MULE DEVELOPER) PHONE: AGE: 82 SSN# [id number] GENDER: Male ENCOUNTER PHYSICIAN: Dr. Bear Sousa M.D. 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 EATING: EATING - STEP 1: Does the patient require the assistance of a person or device, or need extra time when eating? No. EATING - SCORE: 7-IND GROOMING: Activity did not occur on this shift GROOMING - SCORE: 0-UNK BATHING: Activity did not occur on this shift BATHING - SCORE: 0-UNK DRESSING - UPPER BODY: T-shirt/pullover shirt (four steps) ARTICLES SCORE Total number of steps: 4 DRESSING - UPPER BODY - STEP 1: Does the patient require help from a person or device, or need extra time when dressing above the tomas st? Yes. DRESSING - UPPER BODY - STEP 2: Does the patient require the assistance of a helper? Yes. DRESSING - UPPER BODY - STEP 3: Does the helper touch the patient while dressing? Yes. DRESSING - UPPER BODY - STEP 4: How many of the total steps does the patient complete on his/her own? 3 DRESSING - UPPER BODY - SCORE: 4-MIN DRESSING - LOWER BODY: Activity did not occur on this shift ARTICLES SCORE Total number of steps: 0 DRESSING - LOWER BODY - SCORE: 0-UNK TOILETING: TOILETING - STEP 1: Does the patient require the assistance of a person or device, or need extra time with toileting? Yes . TOILETING - STEP 2: Does the patient require the assistance of a helper? Yes. TOILETING - STEP 3: How much assistance does the patient require from the helper? Only supervision TOILETING - SCORE: 5-SUP BLADDER MANAGEMENT: [place] cares for lr catheter including emptying drainage bag. BLADDER MANAGEMENT - SCORE: 1-DEP BLADDER MANAGEMENT - FREQUENCY OF ACCIDENTS: BLADDER MANAGEMENT(FA) - STEP 1: How many accidents has the patient had during the current shift? 0 BOWEL MANAGEMENT: BOWEL MANAGEMENT - STEP 1: Does the patient control bowels completely and intentionally without equipment devices or medications AND is always continent? Yes. BOWEL MANAGEMENT - SCORE: 7-IND BOWEL MANAGEMENT - FREQUENCY OF ACCIDENTS: BOWEL MANAGEMENT(FA) - STEP 1: How many accidents has the patient had during the current shift? 0 TRANSFERS: BED, CHAIR, WHEELCHAIR: TRANSFERS: BED, CHAIR, WHEELCHAIR - STEP 1: Does the patient require assistance of a person or device, or need extra time with bed, chair, or whe elchair transfers? Yes. TRANSFERS: BED, CHAIR, WHEELCHAIR - STEP 2: Does the patient require the assistance of a helper? Yes. TRANSFERS: BED, CHAIR, WHEELCHAIR - STEP 3: How much assistance does the patient require from the helper? Lifting of the patient TRANSFERS: BED, CHAIR, WHEELCHAIR - STEP 4: Does the helper lift the patient ONLY up? ONLY down? Up AND Down? ONLY up. TRANSFERS: BED, CHAIR, WHEELCHAIR - SCORE: 3-MOD TRANSFERS: TOILET: TRANSFERS: TOILET - STEP 1: Does the patient require the assistance of a person or device, or need extra time with toilet transfe rs? Yes. TRANSFERS: TOILET - STEP 2: Does the patient require the assistance of a helper? Yes. TRANSFERS: TOILET - STEP 3: How much assistance does the patient require from the helper? Patient performs half or more of the tr ansferring tasks TRANSFERS: TOILET - STEP 4: Does the patient need only incidental help such as contact guard or steadying during toilet transfer? No. Patient needs more than incidental help TRANSFERS: TOILET - SCORE: 3-MOD TRANSFERS: SHOWER: Activity did not occur on this shift TRANSFERS: SHOWER - SCORE: 0-UNK TRANSFERS: TUB: Activity did not occur on this shift TRANSFERS: TUB - SCORE: 0-UNK LOCOMOTION: WALK: Activity did not occur on this shift LOCOMOTION: WALK - SCORE: 0-UNK LOCOMOTION: WHEELCHAIR: Activity did not occur on this shift LOCOMOTION: WHEELCHAIR - SCORE: 0-UNK COMPREHENSION: COMPREHENSION - SCORE: 0-UNK EXPRESSION EXPRESSION - SCORE: 0-UNK SOCIAL INTERACTION: SOCIAL INTERACTION - SCORE: 0-UNK PROBLEM SOLVING: PROBLEM SOLVING - SCORE: 0-UNK MEMORY: MEMORY - SCORE: 0-UNK SIGNATURE PANEL: The following modified sections: Eating - Score, Grooming - Score, Bathing - Score, Dressing - Upper Body - Score, Dressing - Lower Body - Score, Toileting - Score, Bladder Management - Score, Bowel Man agement - Score, Transfers: Bed, Chair, Wheelchair - Score, Transfers: Toilet - Score, Transfers: Tova wer - Score, Transfers: Tub - Score, Locomotion: Walk - Score, Locomotion: Wheelchair - Score, Compre hension - Score, Expression - Score, Social Interaction - Score, Problem Solving - Score, Memory - Sc ore were [electronically] signed by Helen Boyer CNA on FriMar 20 2018 10:56:59 GMT-0600 ([facility])
[2018-03-20] MEDS: BISACODYL 10 MG RECTAL SUPP PR PRN (15:02)
[2018-03-20] MEDS: ENOXAPARIN 40 MG/0.4 ML SQ SCH (16:28)
--- NOTE | 2018-03-20 16:30 | FAST ---
ENCOUNTER DATE AND TIME: 03/20/2018 08:00 (CERTIFIED MEDICAL RECORDS CODER) NAME MUNIR CHAO DATE OF : 1935 DATE OF ADMISSION: 03/17/2018 18:37 (CERTIFIED MEDICAL RECORDS CODER) PHONE: AGE: 82 SSN# [id number] GENDER: Male ENCOUNTER PHYSICIAN: Dr. Bear Sousa M.D. 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 EATING: Activity did not occur on this shift EATING - SCORE: 0-UNK GROOMING: Comb/brush hair Wash, rinse, and dry face Wash, rinse, and dry hands GROOMING - STEP 1: Does the patient require the assistance of a person or device, or need extra time when grooming? Yes. GROOMING - STEP 2: Does the patient require the assistance of a helper? Yes. GROOMING - STEP 3: How much assistance does the patient require from the helper? Cuing, coaxing, instructions, or encour agement for completion of grooming GROOMING - SCORE: 5-SUP BATHING: Abdomen Buttocks Chest Left arm Left lower leg and foot Left upper leg Perineal area Right arm Right lower leg and foot Right upper leg BATHING - STEP 1: Does the patient require the assistance of a person or device, or need extra time when bathing? Yes. BATHING - STEP 2: Does the patient require the assistance of a helper? Yes. BATHING - STEP 3: How much assistance does the patient require from the helper? More than just incidental help BATHING - STEP 4: What percent of the body parts did the patient bathe WITHOUT the helper? Less than half of the body p arts BATHING - SCORE: 2-MAX DRESSING - UPPER BODY: T-shirt/pullover shirt (four steps) ARTICLES SCORE Total number of steps: 4 DRESSING - UPPER BODY - STEP 1: Does the patient require help from a person or device, or need extra time when dressing above the tomas st? Yes. DRESSING - UPPER BODY - STEP 2: Does the patient require the assistance of a helper? Yes. DRESSING - UPPER BODY - STEP 3: Does the helper touch the patient while dressing? Yes. DRESSING - UPPER BODY - STEP 4: How many of the total steps does the patient complete on his/her own? 1 DRESSING - UPPER BODY - STEP 5: Does Patient require total assistance for dressing above the waist such as the helper holding clothin g and performing basically all the activities? No. DRESSING - UPPER BODY - SCORE: 2-MAX DRESSING - LOWER BODY: Elastic waist pants (three steps) Sock - Left foot (one step) Sock - Right foot (one step) Underwear (three steps) ARTICLES SCORE Total number of steps: 8 DRESSING - LOWER BODY - STEP 1: Does the patient require help from a person or device, or need extra time when dressing below the tomas st? Yes. DRESSING - LOWER BODY - STEP 2: Does the patient require the assistance of a helper? Yes. DRESSING - LOWER BODY - STEP 3: Does the helper touch the patient while dressing? Yes. DRESSING - LOWER BODY - STEP 4: How many of the total steps does the patient complete on his/her own? 2 DRESSING - LOWER BODY - STEP 5: Does patient require total assistance for dressing below the waist such as the helper holding clothin g and performing basically all the activities? No. DRESSING - LOWER BODY - SCORE: 2-MAX TOILETING: Activity did not occur on this shift TOILETING - SCORE: 0-UNK BLADDER MANAGEMENT: Activity did not occur on this shift BLADDER MANAGEMENT - SCORE: 7-IND BOWEL MANAGEMENT: Activity did not occur on this shift BOWEL MANAGEMENT - SCORE: 7-IND TRANSFERS: BED, CHAIR, WHEELCHAIR: Activity did not occur on this shift TRANSFERS: BED, CHAIR, WHEELCHAIR - SCORE: 0-UNK TRANSFERS: TOILET: Activity did not occur on this shift TRANSFERS: TOILET - SCORE: 0-UNK TRANSFERS: SHOWER: TRANSFERS: SHOWER - STEP 1: Does the patient require the assistance of a person or device, or need extra time with shower transfe rs? Yes. TRANSFERS: SHOWER - STEP 2: Does the patient require the assistance of a helper? Yes. TRANSFERS: SHOWER - STEP 3: How much assistance does the patient require from the helper? More than incidental help TRANSFERS: SHOWER - STEP 4: How much more help does the patient require from the helper? Lifting the patient either up OR down fr om the wheelchair onto the shower chair TRANSFERS: SHOWER - SCORE: 3-MOD TRANSFERS: TUB: Activity did not occur on this shift TRANSFERS: TUB - SCORE: 0-UNK LOCOMOTION: WALK: Activity did not occur on this shift LOCOMOTION: WALK - SCORE: 0-UNK LOCOMOTION: WHEELCHAIR: Activity did not occur on this shift LOCOMOTION: WHEELCHAIR - SCORE: 0-UNK LOCOMOTION: STAIRS: Activity did not occur on this shift LOCOMOTION: STAIRS - SCORE: 0-UNK COMPREHENSION: COMPREHENSION: TYPE: Both COMPREHENSION - STEP 1: Does the patient require help from a person or device, or need extra time to understand complex and a bstract ideas (such as current events, finances, discharge planning, medical issues, relationships, e tc)? Yes. COMPREHENSION - STEP 2: Does the patient require help to understand questions or statements about basic needs or ideas (such as hunger, thirst, sleep, safety, daily schedule, room location, or discomfort) half or more of the t mattie? No. COMPREHENSION - STEP 3: How often does the patient need help to understand directions and conversation about basic needs? 25% - 49% of the time COMPREHENSION - SCORE: 3-MOD EXPRESSION EXPRESSION: TYPE: Both EXPRESSION - STEP 1: Does the patient require help from a person or device, or need extra time expressing complex and abst ract ideas (such as current events, finances, discharge planning, medical issues, relationships, etc) ? Yes. EXPRESSION - STEP 2: Does the patient require help to express basic necessities or ideas (such as hunger, thirst, sleep, s afety, daily schedule, room location, or discomfort) half or more of the time? No. EXPRESSION - STEP 3: How often does the patient need help to express directions and conversation about basic needs? 10-24% of the time EXPRESSION - SCORE: 4-MIN SOCIAL INTERACTION: SOCIAL INTERACTION - STEP 1: Does the patient require a helper to interact with others in social and therapeutic situations? Yes. SOCIAL INTERACTION - STEP 2: Does the patient interact appropriately half or more of the time? Yes. SOCIAL INTERACTION - STEP 3: How often does the patient need help to interact appropriately? Less than 10% of the time SOCIAL INTERACTION - SCORE: 5-SUP PROBLEM SOLVING: PROBLEM SOLVING - STEP 1: Does the patient need help from a person or device, or need extra time to solve complex problems such as managing a checking account or confronting interpersonal problems? Yes. PROBLEM SOLVING - STEP 2: Does the patient solve basic routine problems half or more of the time? Yes. PROBLEM SOLVING - STEP 3: How often does the patient need help to solve basic routine problems? 25%-49% of the time PROBLEM SOLVING - SCORE: 3-MOD MEMORY: MEMORY - STEP 1: Does the patient need help from a person or device, or need extra time to remember frequently encount ered people, daily routines, and executing requests? Yes. MEMORY - STEP 2: How often does the patient need help to remember frequently encountered people, daily routines, and e xecuting requests? 25% - 49% of the time MEMORY - SCORE: 3-MOD SIGNATURE PANEL: The following modified sections: Eating - Score, Grooming - Score, Bathing - Score, Dressing - Upper Body - Score, Dressing - Lower Body - Score, Toileting - Score, Transfers: Bed, Chair, Wheelchair - S core, Transfers: Toilet - Score, Transfers: Shower - Score, Transfers: Tub - Score, Comprehension - S core, Expression - Score, Social Interaction - Score, Problem Solving - Score, Memory - Score were [e lectronically] signed by Maddie Gutierrez OT on FriMar 20 2018 16:29:43 T-0600 ([facility])
--- NOTE | 2018-03-20 16:49 | PN ---
Subjective: The patient is stable. Objective: The patient had about _ cc q.6 hours clamp and unclamp [place] catheter. Did not really feel the urge at 150 but that was overnight, so during the day will hopefully drink more and make more urine volume by 6 hours, we will discontinue clamping and unclamping for now, and continue antibiotics. FIDELIA/MILENA Voice ID: [id number] Report ID: [id number] CAROLINE
[2018-03-20] MEDS: ATORVASTATIN 40 MG TAB PO SCH (19:49)
[2018-03-20] MEDS: MELATONIN 3 MG TABLET PO PRN (19:49)
[2018-03-20] MEDS: PROMOD 30 ML DOSE PO SCH (19:50)
[2018-03-21] MEDS: ALBUTEROL 2.5 MG/3 ML NEB SOL NEB SCH ×4 (01:25→20:27)
[2018-03-21] MEDS: IPRATROPIUM BROM 0.5MG/2.5ML IH SCH ×4 (01:25→20:27)
--- NOTE | 2018-03-21 02:30 | FAST ---
SHIFT START DATE/TIME: 03/20/2018 19:00 (BRAND MARKETING MANAGER) SHIFT END DATE/TIME: 03/21/2018 07:00 (BRAND MARKETING MANAGER) NAME MUNIR CHAO DATE OF : 1935 DATE OF ADMISSION: 03/17/2018 18:37 (BRAND MARKETING MANAGER) PHONE: AGE: 82 SSN# [id number] GENDER: Male ENCOUNTER PHYSICIAN: Dr. Bear Sousa M.D. 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 EATING: Activity did not occur on this shift EATING - SCORE: 0-UNK GROOMING: Activity did not occur on this shift GROOMING - SCORE: 0-UNK BATHING: Activity did not occur on this shift BATHING - SCORE: 0-UNK DRESSING - UPPER BODY: Patient is not dressing in public clothing ARTICLES SCORE Total number of steps: 0 DRESSING - UPPER BODY - SCORE: 0-UNK DRESSING - LOWER BODY: Patient is not dressing in public clothing ARTICLES SCORE Total number of steps: 0 DRESSING - LOWER BODY - SCORE: 0-UNK TOILETING: Activity did not occur on this shift TOILETING - SCORE: 0-UNK BLADDER MANAGEMENT: [place] cares for lr catheter including emptying drainage bag. BLADDER MANAGEMENT - SCORE: 1-DEP BOWEL MANAGEMENT: Activity did not occur on this shift BOWEL MANAGEMENT - SCORE: 7-IND TRANSFERS: BED, CHAIR, WHEELCHAIR: TRANSFERS: BED, CHAIR, WHEELCHAIR - STEP 1: Does the patient require assistance of a person or device, or need extra time with bed, chair, or whe elchair transfers? Yes. TRANSFERS: BED, CHAIR, WHEELCHAIR - STEP 2: Does the patient require the assistance of a helper? Yes. TRANSFERS: BED, CHAIR, WHEELCHAIR - STEP 3: How much assistance does the patient require from the helper? Lifting of the legs TRANSFERS: BED, CHAIR, WHEELCHAIR - STEP 4: How many legs does the patient require the helper to lift? both legs TRANSFERS: BED, CHAIR, WHEELCHAIR - SCORE: 3-MOD TRANSFERS: TOILET: Activity did not occur on this shift TRANSFERS: TOILET - SCORE: 0-UNK TRANSFERS: SHOWER: Activity did not occur on this shift TRANSFERS: SHOWER - SCORE: 0-UNK TRANSFERS: TUB: Activity did not occur on this shift TRANSFERS: TUB - SCORE: 0-UNK LOCOMOTION: WALK: Activity did not occur on this shift LOCOMOTION: WALK - SCORE: 0-UNK LOCOMOTION: WHEELCHAIR: Activity did not occur on this shift LOCOMOTION: WHEELCHAIR - SCORE: 0-UNK COMPREHENSION: COMPREHENSION: TYPE: Both COMPREHENSION - STEP 1: Does the patient require help from a person or device, or need extra time to understand complex and a bstract ideas (such as current events, finances, discharge planning, medical issues, relationships, e tc)? Yes. COMPREHENSION - STEP 2: Does the patient require help to understand questions or statements about basic needs or ideas (such as hunger, thirst, sleep, safety, daily schedule, room location, or discomfort) half or more of the t mattie? No. COMPREHENSION - STEP 3: How often does the patient need help to understand directions and conversation about basic needs? Les s than 10% of the time COMPREHENSION - SCORE: 5-SUP EXPRESSION EXPRESSION: TYPE: Both EXPRESSION - STEP 1: Does the patient require help from a person or device, or need extra time expressing complex and abst ract ideas (such as current events, finances, discharge planning, medical issues, relationships, etc) ? No. EXPRESSION - STEP 2: Does the patient need extra time, require an assistive device (such as augmentive communication syste m or a communication board), OR does s/he have mild difficulty expressing complex and abstract ideas (including mild dysarthria or mild word-find problems)? Yes. EXPRESSION - SCORE: 6-GARRY SOCIAL INTERACTION: SOCIAL INTERACTION - STEP 1: Does the patient require a helper to interact with others in social and therapeutic situations? No. SOCIAL INTERACTION - STEP 2: Does the patient need extra time in social situations, OR does s/he interact with staff, other patien ts, and family members ONLY in structured environments, OR does s/he require medication for social in teraction? Yes, patient needs extra time SOCIAL INTERACTION - SCORE: 6-GARRY PROBLEM SOLVING: PROBLEM SOLVING - STEP 1: Does the patient need help from a person or device, or need extra time to solve complex problems such as managing a checking account or confronting interpersonal problems? Yes. PROBLEM SOLVING - STEP 2: Does the patient solve basic routine problems half or more of the time? Yes. PROBLEM SOLVING - STEP 3: How often does the patient need help to solve basic routine problems? Less than 10% of the time PROBLEM SOLVING - SCORE: 5-SUP MEMORY: MEMORY - STEP 1: Does the patient need help from a person or device, or need extra time to remember frequently encount ered people, daily routines, and executing requests? Yes. MEMORY - STEP 2: How often does the patient need help to remember frequently encountered people, daily routines, and e xecuting requests? Less than 10% of the time MEMORY - SCORE: 5-SUP
[2018-03-21] MEDS: HYDROCODONE/APAP 5/325 MG TAB PO SCH ×6 (03:00→19:00)
[2018-03-21] MEDS: TRAMADOL HCL 50 MG TAB PO PRN ×2 (04:27→21:18)
[2018-03-21] MEDS: DUTASTERIDE 0.5 MG CAPSULE PO SCH (08:00)
[2018-03-21] MEDS: CLOPIDOGREL 75 MG TABLET PO SCH (08:08)
[2018-03-21] MEDS: AMOX/K CLAV 500 MG TAB PO SCH ×2 (08:08→19:36)
[2018-03-21] MEDS: TAMSULOSIN 0.4 MG SR CAP PO SCH (08:08)
[2018-03-21] MEDS: LIDOCAINE 5% PATCH TOP SCH (08:08)
[2018-03-21] MEDS: MAGNESIUM OXIDE 400 MG TAB PO SCH (08:08)
[2018-03-21] MEDS: SODIUM CHLORIDE 1 GM TAB PO SCH ×2 (08:09→16:22)
[2018-03-21] MEDS: VITAMIN D 1000 UNIT TAB PO SCH (08:09)
[2018-03-21] MEDS: ASPIRIN EC 81 MG TAB PO SCH (08:09)
[2018-03-21] MEDS: GUAIFENESIN 600 MG SA TAB PO SCH ×2 (08:09→19:36)
[2018-03-21] MEDS: GABAPENTIN 400 MG CAP PO SCH ×3 (08:09→21:08)
[2018-03-21] MEDS: PANTOPRAZOLE 40MG TABLET PO SCH (08:09)
[2018-03-21] MEDS: PROMOD 30 ML DOSE PO SCH ×2 (08:10→19:37)
--- NOTE | 2018-03-21 10:02 | FAST ---
SHIFT START DATE/TIME: 03/21/2018 07:00 (PAPER BALER) SHIFT END DATE/TIME: 03/21/2018 19:00 (PAPER BALER) NAME MUNIR CHAO DATE OF : 1935 DATE OF ADMISSION: 03/17/2018 18:37 (PAPER BALER) PHONE: AGE: 82 SSN# [id number] GENDER: Male ENCOUNTER PHYSICIAN: Dr. Bear Sousa M.D. 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 EATING: EATING - STEP 1: Does the patient require the assistance of a person or device, or need extra time when eating? Yes. EATING - STEP 2: Does the patient require the assistance of a helper? Yes. EATING - STEP 3: Does the patient perform half or more of the eating tasks? Yes. EATING - STEP 4: Does the patient need only supervision, cuing, coaxing OR help to apply an orthosis OR help to cut fo od, open containers, pour liquids, or butter bread? Yes. EATING - SCORE: 5-SUP GROOMING: Comb/brush hair Oral care GROOMING - STEP 1: Does the patient require the assistance of a person or device, or need extra time when grooming? Yes. GROOMING - STEP 2: Does the patient require the assistance of a helper? Yes. GROOMING - STEP 3: How much assistance does the patient require from the helper? Only prior equipment preparation/set up from the helper GROOMING - SCORE: 5-SUP BATHING: Activity did not occur on this shift BATHING - SCORE: 0-UNK DRESSING - UPPER BODY: Activity did not occur on this shift ARTICLES SCORE Total number of steps: 0 DRESSING - UPPER BODY - SCORE: 0-UNK DRESSING - LOWER BODY: Activity did not occur on this shift ARTICLES SCORE Total number of steps: 0 DRESSING - LOWER BODY - SCORE: 0-UNK TOILETING: TOILETING - STEP 1: Does the patient require the assistance of a person or device, or need extra time with toileting? Yes . TOILETING - STEP 2: Does the patient require the assistance of a helper? Yes. TOILETING - STEP 3: How much assistance does the patient require from the helper? Hands-on assistance from the helper TOILETING - STEP 4: Of the 3 tasks: 1) Adjusting clothing prior to use, 2) Cleansing of perineal area, 3) Adjusting clot blake after use; How many tasks does the patient perform WITHOUT assistance of the helper? One task TOILETING - SCORE: 2-MAX BLADDER MANAGEMENT: [place] cares for lr catheter including emptying drainage bag. BLADDER MANAGEMENT - SCORE: 1-DEP BOWEL MANAGEMENT: Activity did not occur on this shift BOWEL MANAGEMENT - SCORE: 7-IND TRANSFERS: BED, CHAIR, WHEELCHAIR: TRANSFERS: BED, CHAIR, WHEELCHAIR - STEP 1: Does the patient require assistance of a person or device, or need extra time with bed, chair, or whe elchair transfers? Yes. TRANSFERS: BED, CHAIR, WHEELCHAIR - STEP 2: Does the patient require the assistance of a helper? Yes. TRANSFERS: BED, CHAIR, WHEELCHAIR - STEP 3: How much assistance does the patient require from the helper? Lifting of the patient TRANSFERS: BED, CHAIR, WHEELCHAIR - STEP 4: Does the helper lift the patient ONLY up? ONLY down? Up AND Down? ONLY up. TRANSFERS: BED, CHAIR, WHEELCHAIR - SCORE: 3-MOD TRANSFERS: TOILET: TRANSFERS: TOILET - STEP 1: Does the patient require the assistance of a person or device, or need extra time with toilet transfe rs? Yes. TRANSFERS: TOILET - STEP 2: Does the patient require the assistance of a helper? Yes. TRANSFERS: TOILET - STEP 3: How much assistance does the patient require from the helper? Patient performs half or more of the tr ansferring tasks TRANSFERS: TOILET - STEP 4: Does the patient need only incidental help such as contact guard or steadying during toilet transfer? Yes. TRANSFERS: TOILET - SCORE: 4-MIN TRANSFERS: SHOWER: Activity did not occur on this shift TRANSFERS: SHOWER - SCORE: 0-UNK TRANSFERS: TUB: Activity did not occur on this shift TRANSFERS: TUB - SCORE: 0-UNK LOCOMOTION: WALK: Activity did not occur on this shift LOCOMOTION: WALK - SCORE: 0-UNK LOCOMOTION: WHEELCHAIR: Activity did not occur on this shift LOCOMOTION: WHEELCHAIR - SCORE: 0-UNK COMPREHENSION: COMPREHENSION: TYPE: Both COMPREHENSION - STEP 1: Does the patient require help from a person or device, or need extra time to understand complex and a bstract ideas (such as current events, finances, discharge planning, medical issues, relationships, e tc)? No. COMPREHENSION - STEP 2: Does the patient need extra time, require an assistive device (such as glasses for visual comprehensi on or a hearing aid for auditory comprehension) or does s/he have mild difficulty understanding compl ex and abstract information? Yes. COMPREHENSION - SCORE: 6-GARRY EXPRESSION EXPRESSION: TYPE: Both EXPRESSION - STEP 1: Does the patient require help from a person or device, or need extra time expressing complex and abst ract ideas (such as current events, finances, discharge planning, medical issues, relationships, etc) ? Yes. EXPRESSION - STEP 2: Does the patient require help to express basic necessities or ideas (such as hunger, thirst, sleep, s afety, daily schedule, room location, or discomfort) half or more of the time? No. EXPRESSION - STEP 3: How often does the patient need help to express directions and conversation about basic needs? Less t schneider 10% of the time EXPRESSION - SCORE: 5-SUP SOCIAL INTERACTION: SOCIAL INTERACTION - STEP 1: Does the patient require a helper to interact with others in social and therapeutic situations? No. SOCIAL INTERACTION - STEP 2: Does the patient need extra time in social situations, OR does s/he interact with staff, other patien ts, and family members ONLY in structured environments, OR does s/he require medication for social in teraction? Yes, patient needs extra time SOCIAL INTERACTION - SCORE: 6-GARRY PROBLEM SOLVING: PROBLEM SOLVING - STEP 1: Does the patient need help from a person or device, or need extra time to solve complex problems such as managing a checking account or confronting interpersonal problems? Yes. PROBLEM SOLVING - STEP 2: Does the patient solve basic routine problems half or more of the time? Yes. PROBLEM SOLVING - STEP 3: How often does the patient need help to solve basic routine problems? Less than 10% of the time PROBLEM SOLVING - SCORE: 5-SUP MEMORY: MEMORY - STEP 1: Does the patient need help from a person or device, or need extra time to remember frequently encount ered people, daily routines, and executing requests? Yes. MEMORY - STEP 2: How often does the patient need help to remember frequently encountered people, daily routines, and e xecuting requests? Less than 10% of the time MEMORY - SCORE: 5-SUP SIGNATURE PANEL: The following modified sections: Eating - Score, Grooming - Score, Bathing - Score, Dressing - Upper Body - Score, Dressing - Lower Body - Score, Toileting - Score, Bladder Management - Score, Bowel Man agement - Score, Transfers: Bed, Chair, Wheelchair - Score, Transfers: Toilet - Score, Transfers: Tova wer - Score, Transfers: Tub - Score, Locomotion: Walk - Score, Locomotion: Wheelchair - Score, Compre hension - Score, Social Interaction - Score, Expression - Score, Problem Solving - Score, Memory - Sc ore were [electronically] signed by Sang Gray on Sat Mar 21 2018 10:01:26 GMT-0600 (Central Standard Time)
[2018-03-21 11:39] LABS: Albumin 2.6 g/dL (3.4-5.0); Bilirubin Total 0.5 mg/dL (0.2-1.0); Potassium 4.4 mmol/L (3.5-5.1); Protein, Total 7.3 g/dL (6.4-8.2)
[2018-03-21 14:29] LABS: Absolute Lymphocytes (CBC) 1.4 K/uL (0.7-4.9); Absolute Neutrophil 10.9 K/uL (1.8-8.0); Basophils % 0.4 % (0-1.3); Eosinophils % 1.7 % (0-4.4); Hematocrit 30.3 % (39.6-49.0); Lymphocytes % 10.4 % (15.3-44.8); MPV 8.1 fL (7.6-11.3); Monocytes % 7.5 % (3.3-12.3); RBC Red Blood Cell Count 3.53 M/uL (4.33-5.43)
[2018-03-21] MEDS: ENOXAPARIN 40 MG/0.4 ML SQ SCH (16:22)
[2018-03-21] MEDS: DOCUSATE NA/SENNA CONC 1 TAB PO PRN (19:37)
[2018-03-21] MEDS: ATORVASTATIN 40 MG TAB PO SCH (21:07)
[2018-03-21] MEDS: MELATONIN 3 MG TABLET PO PRN (21:18)
[2018-03-22] MEDS: HYDROCODONE/APAP 5/325 MG TAB PO PRN ×3 (01:10→21:28)
[2018-03-22] MEDS: IPRATROPIUM BROM 0.5MG/2.5ML IH SCH ×4 (01:58→19:23)
[2018-03-22] MEDS: ALBUTEROL 2.5 MG/3 ML NEB SOL NEB SCH ×4 (01:58→19:23)
--- NOTE | 2018-03-22 02:04 | FAST ---
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 Bear Sousa M.D. 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 EATING: Activity did not occur on this shift EATING - SCORE: 0-UNK GROOMING: Activity did not occur on this shift GROOMING - SCORE: 0-UNK BATHING: Activity did not occur on this shift BATHING - SCORE: 0-UNK DRESSING - UPPER BODY: Activity did not occur on this shift ARTICLES SCORE Total number of steps: 0 DRESSING - UPPER BODY - SCORE: 0-UNK DRESSING - LOWER BODY: Activity did not occur on this shift ARTICLES SCORE Total number of steps: 0 DRESSING - LOWER BODY - SCORE: 0-UNK TOILETING: Activity did not occur on this shift TOILETING - SCORE: 0-UNK BLADDER MANAGEMENT: [place] cares for lr catheter including emptying drainage bag. BLADDER MANAGEMENT - SCORE: 1-DEP BOWEL MANAGEMENT: Activity did not occur on this shift BOWEL MANAGEMENT - SCORE: 7-IND TRANSFERS: BED, CHAIR, WHEELCHAIR: TRANSFERS: BED, CHAIR, WHEELCHAIR - STEP 1: Does the patient require assistance of a person or device, or need extra time with bed, chair, or whe elchair transfers? Yes. TRANSFERS: BED, CHAIR, WHEELCHAIR - STEP 2: Does the patient require the assistance of a helper? Yes. TRANSFERS: BED, CHAIR, WHEELCHAIR - STEP 3: How much assistance does the patient require from the helper? Lifting of the legs TRANSFERS: BED, CHAIR, WHEELCHAIR - STEP 4: How many legs does the patient require the helper to lift? both legs TRANSFERS: BED, CHAIR, WHEELCHAIR - SCORE: 3-MOD TRANSFERS: TOILET: Activity did not occur on this shift TRANSFERS: TOILET - SCORE: 0-UNK TRANSFERS: SHOWER: Activity did not occur on this shift TRANSFERS: SHOWER - SCORE: 0-UNK TRANSFERS: TUB: Activity did not occur on this shift TRANSFERS: TUB - SCORE: 0-UNK LOCOMOTION: WALK: Activity did not occur on this shift LOCOMOTION: WALK - SCORE: 0-UNK LOCOMOTION: WHEELCHAIR: Activity did not occur on this shift LOCOMOTION: WHEELCHAIR - SCORE: 0-UNK COMPREHENSION: COMPREHENSION: TYPE: Both COMPREHENSION - STEP 1: Does the patient require help from a person or device, or need extra time to understand complex and a bstract ideas (such as current events, finances, discharge planning, medical issues, relationships, e tc)? Yes. COMPREHENSION - STEP 2: Does the patient require help to understand questions or statements about basic needs or ideas (such as hunger, thirst, sleep, safety, daily schedule, room location, or discomfort) half or more of the t mattie? Yes. COMPREHENSION - STEP 3: Is the patient basically able to understand and respond appropriately and consistently? Yes. COMPREHENSION - SCORE: 2-MAX EXPRESSION EXPRESSION: TYPE: Both EXPRESSION - STEP 1: Does the patient require help from a person or device, or need extra time expressing complex and abst ract ideas (such as current events, finances, discharge planning, medical issues, relationships, etc) ? Yes. EXPRESSION - STEP 2: Does the patient require help to express basic necessities or ideas (such as hunger, thirst, sleep, s afety, daily schedule, room location, or discomfort) half or more of the time? Yes. EXPRESSION - STEP 3: Is the patient basically unable to express or does s/he express inappropriately or inconsistently bin pite prompting? No. EXPRESSION - SCORE: 2-MAX SOCIAL INTERACTION: SOCIAL INTERACTION - STEP 1: Does the patient require a helper to interact with others in social and therapeutic situations? Yes. SOCIAL INTERACTION - STEP 2: Does the patient interact appropriately half or more of the time? Yes. SOCIAL INTERACTION - STEP 3: How often does the patient need help to interact appropriately? Less than 10% of the time SOCIAL INTERACTION - SCORE: 5-SUP PROBLEM SOLVING: Patient requires bed/chair alarms due to attempts to get up unassisted when helper is needed. PROBLEM SOLVING - STEP 1: How often do the bed/chair alarms go off? Occasionally - the alarms go off about 25% or less PROBLEM SOLVING - SCORE: 4-MIN MEMORY: MEMORY - STEP 1: How often do the bed/chair alarms go off? Occasionally - the alarms go off about 25% of the time or l ess MEMORY - SCORE: 4-MIN SIGNATURE PANEL: The following modified sections: Eating - Score, Grooming - Score, Bathing - Score, Dressing - Upper Body - Score, Dressing - Lower Body - Score, Toileting - Score, Bladder Management - Score, Bowel Man agement - Score, Transfers: Bed, Chair, Wheelchair - Score, Transfers: Toilet - Score, Transfers: Tova wer - Score, Transfers: Tub - Score, Locomotion: Walk - Score, Locomotion: Wheelchair - Score, Compre hension - Score, Expression - Score, Social Interaction - Score, Problem Solving - Score, Memory - Sc ore were [electronically] signed by Talya Lane CNA on FriMar 22 2018 02:04:10 [facility]-[id number] ([facility])
[2018-03-22] MEDS: TRAMADOL HCL 50 MG TAB PO PRN ×2 (05:16→13:07)
[2018-03-22] MEDS: SODIUM CHLORIDE 1 GM TAB PO SCH ×2 (07:23→16:24)
[2018-03-22] MEDS: DUTASTERIDE 0.5 MG CAPSULE PO SCH (07:23)
[2018-03-22] MEDS: MAGNESIUM OXIDE 400 MG TAB PO SCH (07:24)
[2018-03-22] MEDS: GUAIFENESIN 600 MG SA TAB PO SCH ×2 (07:25→21:27)
[2018-03-22] MEDS: TAMSULOSIN 0.4 MG SR CAP PO SCH (07:25)
[2018-03-22] MEDS: CLOPIDOGREL 75 MG TABLET PO SCH (07:25)
[2018-03-22] MEDS: LIDOCAINE 5% PATCH TOP SCH (07:25)
[2018-03-22] MEDS: AMOX/K CLAV 500 MG TAB PO SCH ×2 (07:26→21:27)
[2018-03-22] MEDS: ASPIRIN EC 81 MG TAB PO SCH (07:26)
[2018-03-22] MEDS: PROMOD 30 ML DOSE PO SCH ×2 (07:27→21:27)
[2018-03-22] MEDS: VITAMIN D 1000 UNIT TAB PO SCH (07:27)
[2018-03-22] MEDS: PANTOPRAZOLE 40MG TABLET PO SCH (07:27)
[2018-03-22] MEDS: GABAPENTIN 400 MG CAP PO SCH ×3 (08:59→21:27)
--- NOTE | 2018-03-22 09:47 | FAST ---
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 Bear Sousa M.D. 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 EATING: EATING - STEP 1: Does the patient require the assistance of a person or device, or need extra time when eating? Yes. EATING - STEP 2: Does the patient require the assistance of a helper? Yes. EATING - STEP 3: Does the patient perform half or more of the eating tasks? Yes. EATING - STEP 4: Does the patient need only supervision, cuing, coaxing OR help to apply an orthosis OR help to cut fo od, open containers, pour liquids, or butter bread? Yes. EATING - SCORE: 5-SUP GROOMING: Comb/brush hair Oral care GROOMING - STEP 1: Does the patient require the assistance of a person or device, or need extra time when grooming? Yes. GROOMING - STEP 2: Does the patient require the assistance of a helper? Yes. GROOMING - STEP 3: How much assistance does the patient require from the helper? Only prior equipment preparation/set up from the helper GROOMING - SCORE: 5-SUP BATHING: Activity did not occur on this shift BATHING - SCORE: 0-UNK DRESSING - UPPER BODY: T-shirt/pullover shirt (four steps) ARTICLES SCORE Total number of steps: 4 DRESSING - UPPER BODY - STEP 1: Does the patient require help from a person or device, or need extra time when dressing above the tomas st? Yes. DRESSING - UPPER BODY - STEP 2: Does the patient require the assistance of a helper? Yes. DRESSING - UPPER BODY - STEP 3: Does the helper touch the patient while dressing? Yes. DRESSING - UPPER BODY - STEP 4: How many of the total steps does the patient complete on his/her own? 4 DRESSING - UPPER BODY - SCORE: 4-MIN DRESSING - LOWER BODY: ARTICLES SCORE Total number of steps: 6 DRESSING - LOWER BODY - STEP 1: Does the patient require help from a person or device, or need extra time when dressing below the tomas st? Yes. DRESSING - LOWER BODY - STEP 2: Does the patient require the assistance of a helper? Yes. DRESSING - LOWER BODY - STEP 3: Does the helper touch the patient while dressing? Yes. DRESSING - LOWER BODY - STEP 4: How many of the total steps does the patient complete on his/her own? 4 DRESSING - LOWER BODY - SCORE: 3-MOD TOILETING: TOILETING - STEP 1: Does the patient require the assistance of a person or device, or need extra time with toileting? Yes . TOILETING - STEP 2: Does the patient require the assistance of a helper? Yes. TOILETING - STEP 3: How much assistance does the patient require from the helper? Hands-on assistance from the helper TOILETING - STEP 4: Of the 3 tasks: 1) Adjusting clothing prior to use, 2) Cleansing of perineal area, 3) Adjusting clot blake after use; How many tasks does the patient perform WITHOUT assistance of the helper? Two tasks TOILETING - SCORE: 3-MOD BLADDER MANAGEMENT: [place] cares for lr catheter including emptying drainage bag. BLADDER MANAGEMENT - SCORE: 1-DEP BOWEL MANAGEMENT: Activity did not occur on this shift BOWEL MANAGEMENT - SCORE: 7-IND TRANSFERS: BED, CHAIR, WHEELCHAIR: TRANSFERS: BED, CHAIR, WHEELCHAIR - STEP 1: Does the patient require assistance of a person or device, or need extra time with bed, chair, or whe elchair transfers? Yes. TRANSFERS: BED, CHAIR, WHEELCHAIR - STEP 2: Does the patient require the assistance of a helper? Yes. TRANSFERS: BED, CHAIR, WHEELCHAIR - STEP 3: How much assistance does the patient require from the helper? Lifting of the patient TRANSFERS: BED, CHAIR, WHEELCHAIR - STEP 4: Does the helper lift the patient ONLY up? ONLY down? Up AND Down? ONLY up. TRANSFERS: BED, CHAIR, WHEELCHAIR - SCORE: 3-MOD TRANSFERS: TOILET: TRANSFERS: TOILET - STEP 1: Does the patient require the assistance of a person or device, or need extra time with toilet transfe rs? Yes. TRANSFERS: TOILET - STEP 2: Does the patient require the assistance of a helper? Yes. TRANSFERS: TOILET - STEP 3: How much assistance does the patient require from the helper? Patient performs half or more of the tr ansferring tasks TRANSFERS: TOILET - STEP 4: Does the patient need only incidental help such as contact guard or steadying during toilet transfer? No. Patient needs more than incidental help TRANSFERS: TOILET - SCORE: 3-MOD TRANSFERS: SHOWER: Activity did not occur on this shift TRANSFERS: SHOWER - SCORE: 0-UNK TRANSFERS: TUB: Activity did not occur on this shift TRANSFERS: TUB - SCORE: 0-UNK LOCOMOTION: WALK: Activity did not occur on this shift LOCOMOTION: WALK - SCORE: 0-UNK LOCOMOTION: WHEELCHAIR: Activity did not occur on this shift LOCOMOTION: WHEELCHAIR - SCORE: 0-UNK COMPREHENSION: COMPREHENSION: TYPE: Both COMPREHENSION - STEP 1: Does the patient require help from a person or device, or need extra time to understand complex and a bstract ideas (such as current events, finances, discharge planning, medical issues, relationships, e tc)? Yes. COMPREHENSION - STEP 2: Does the patient require help to understand questions or statements about basic needs or ideas (such as hunger, thirst, sleep, safety, daily schedule, room location, or discomfort) half or more of the t mattie? No. COMPREHENSION - STEP 3: How often does the patient need help to understand directions and conversation about basic needs? 10% - 24% of the time COMPREHENSION - SCORE: 4-MIN EXPRESSION EXPRESSION: TYPE: Both EXPRESSION - STEP 1: Does the patient require help from a person or device, or need extra time expressing complex and abst ract ideas (such as current events, finances, discharge planning, medical issues, relationships, etc) ? Yes. EXPRESSION - STEP 2: Does the patient require help to express basic necessities or ideas (such as hunger, thirst, sleep, s afety, daily schedule, room location, or discomfort) half or more of the time? No. EXPRESSION - STEP 3: How often does the patient need help to express directions and conversation about basic needs? Less t schneider 10% of the time EXPRESSION - SCORE: 5-SUP SOCIAL INTERACTION: SOCIAL INTERACTION - STEP 1: Does the patient require a helper to interact with others in social and therapeutic situations? Yes. SOCIAL INTERACTION - STEP 2: Does the patient interact appropriately half or more of the time? Yes. SOCIAL INTERACTION - STEP 3: How often does the patient need help to interact appropriately? 10-24% of the time SOCIAL INTERACTION - SCORE: 4-MIN PROBLEM SOLVING: PROBLEM SOLVING - STEP 1: Does the patient need help from a person or device, or need extra time to solve complex problems such as managing a checking account or confronting interpersonal problems? Yes. PROBLEM SOLVING - STEP 2: Does the patient solve basic routine problems half or more of the time? Yes. PROBLEM SOLVING - STEP 3: How often does the patient need help to solve basic routine problems? Less than 10% of the time PROBLEM SOLVING - SCORE: 5-SUP MEMORY: MEMORY - STEP 1: Does the patient need help from a person or device, or need extra time to remember frequently encount ered people, daily routines, and executing requests? Yes. MEMORY - STEP 2: How often does the patient need help to remember frequently encountered people, daily routines, and e xecuting requests? 10% - 24% of the time MEMORY - SCORE: 4-MIN SIGNATURE PANEL: The following modified sections: Eating - Score, Grooming - Score, Bathing - Score, Dressing - Upper Body - Score, Dressing - Lower Body - Score, Toileting - Score, Bladder Management - Score, Bowel Man agement - Score, Transfers: Bed, Chair, Wheelchair - Score, Transfers: Toilet - Score, Transfers: Tova wer - Score, Transfers: Tub - Score, Locomotion: Walk - Score, Locomotion: Wheelchair - Score, Compre hension - Score, Expression - Score, Social Interaction - Score, Problem Solving - Score, Memory - Sc ore were [electronically] signed by Sang Gray on FriMar 22 2018 09:46:58 GMT-0600 (Central Standard Time)
[2018-03-22] MEDS: BISACODYL 10 MG RECTAL SUPP PR PRN (13:19)
[2018-03-22] MEDS: ENOXAPARIN 40 MG/0.4 ML SQ SCH (16:24)
[2018-03-22] MEDS: ATORVASTATIN 40 MG TAB PO SCH (21:27)
--- NOTE | 2018-03-22 21:57 | PN ---
Date of Progress Note: 03/22/2018 Time: 1600. Reason: Neuropathy, status post laminectomy. Interval History: The patient is stable. Pain control is adequate. He is a little drowsy. He does not tolerate either tramadol or narcotic analgesics very well. They have a propensity to make him c onfused. White cell count is improved. No new active problems. Physical Examination: General: He is awake, alert. 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 HEENT: Ocular motion full. Extremities: Strength full. Lumbar laminectomy incision. No erythema. Sensation decreased distall y. Reflexes trace to 1/4. Toes are downgoing. Impression: Neuropathies, status post laminectomy. Plan: Continue comprehensive rehab. Decrease [place] and tramadol as tolerated. We will continue to follow with you. RAMANDEEP/MILENA Voice ID: [id number] Report ID: [id number]
[2018-03-22 23:50] LABS: Absolute Lymphocytes (CBC) 1.4 K/uL (0.7-4.9); Absolute Monocytes 1.3 K/uL (0.1-1.3); Absolute Neutrophil 8.7 K/uL (1.8-8.0); Basophils % 0.5 % (0-1.3); Eosinophils % 1.5 % (0-4.4); Hematocrit 28.8 % (39.6-49.0); MPV 8.2 fL (7.6-11.3); Monocytes % 11.5 % (3.3-12.3); RBC Red Blood Cell Count 3.42 M/uL (4.33-5.43)
[2018-03-23 00:05] LABS: Albumin 2.2 g/dL (3.4-5.0); Bilirubin Total 0.4 mg/dL (0.2-1.0); Protein, Total 6.8 g/dL (6.4-8.2)
[2018-03-23] MEDS ORDERED: ACETAMINOPHEN 325 MG TABLET PO PRN (01:00)
[2018-03-23] MEDS: IPRATROPIUM BROM 0.5MG/2.5ML IH SCH ×4 (01:50→19:29)
[2018-03-23] MEDS: ALBUTEROL 2.5 MG/3 ML NEB SOL NEB SCH ×4 (01:50→19:29)
--- NOTE | 2018-03-23 02:02 | FAST ---
SHIFT START DATE/TIME: 03/22/2018 19:00 (QUARRY EQUIPMENT OPERATOR) SHIFT END DATE/TIME: 03/23/2018 07:00 (QUARRY EQUIPMENT OPERATOR) NAME MUNIR CHAO DATE OF : 1935 DATE OF ADMISSION: 03/17/2018 18:37 (QUARRY EQUIPMENT OPERATOR) PHONE: AGE: 82 SSN# [id number] GENDER: Male ENCOUNTER PHYSICIAN: Dr. Bear Sousa M.D. 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 EATING: Activity did not occur on this shift EATING - SCORE: 0-UNK GROOMING: Activity did not occur on this shift GROOMING - SCORE: 0-UNK BATHING: Activity did not occur on this shift BATHING - SCORE: 0-UNK DRESSING - UPPER BODY: Patient is not dressing in public clothing ARTICLES SCORE Total number of steps: 0 DRESSING - UPPER BODY - SCORE: 0-UNK DRESSING - LOWER BODY: Patient is not dressing in public clothing ARTICLES SCORE Total number of steps: 0 DRESSING - LOWER BODY - SCORE: 0-UNK TOILETING: TOILETING - STEP 1: Does the patient require the assistance of a person or device, or need extra time with toileting? Yes . TOILETING - STEP 2: Does the patient require the assistance of a helper? Yes. TOILETING - STEP 3: How much assistance does the patient require from the helper? Hands-on assistance from the helper TOILETING - STEP 4: Of the 3 tasks: 1) Adjusting clothing prior to use, 2) Cleansing of perineal area, 3) Adjusting clot blake after use; How many tasks does the patient perform WITHOUT assistance of the helper? No tasks; h elper performs all three tasks TOILETING - SCORE: 1-DEP BLADDER MANAGEMENT: [place] cares for lr catheter including emptying drainage bag. BLADDER MANAGEMENT - SCORE: 1-DEP BOWEL MANAGEMENT: Activity did not occur on this shift BOWEL MANAGEMENT - SCORE: 7-IND TRANSFERS: BED, CHAIR, WHEELCHAIR: TRANSFERS: BED, CHAIR, WHEELCHAIR - STEP 1: Does the patient require assistance of a person or device, or need extra time with bed, chair, or whe elchair transfers? Yes. TRANSFERS: BED, CHAIR, WHEELCHAIR - STEP 2: Does the patient require the assistance of a helper? Yes. TRANSFERS: BED, CHAIR, WHEELCHAIR - STEP 3: How much assistance does the patient require from the helper? Lifting of the legs TRANSFERS: BED, CHAIR, WHEELCHAIR - STEP 4: How many legs does the patient require the helper to lift? both legs TRANSFERS: BED, CHAIR, WHEELCHAIR - SCORE: 3-MOD TRANSFERS: TOILET: TRANSFERS: TOILET - STEP 1: Does the patient require the assistance of a person or device, or need extra time with toilet transfe rs? Yes. TRANSFERS: TOILET - STEP 2: Does the patient require the assistance of a helper? Yes. TRANSFERS: TOILET - STEP 3: How much assistance does the patient require from the helper? Patient performs half or more of the tr ansferring tasks TRANSFERS: TOILET - STEP 4: Does the patient need only incidental help such as contact guard or steadying during toilet transfer? No. Patient needs more than incidental help TRANSFERS: TOILET - SCORE: 3-MOD TRANSFERS: SHOWER: Activity did not occur on this shift TRANSFERS: SHOWER - SCORE: 0-UNK TRANSFERS: TUB: Activity did not occur on this shift TRANSFERS: TUB - SCORE: 0-UNK LOCOMOTION: WALK: Activity did not occur on this shift LOCOMOTION: WALK - SCORE: 0-UNK LOCOMOTION: WHEELCHAIR: Activity did not occur on this shift LOCOMOTION: WHEELCHAIR - SCORE: 0-UNK COMPREHENSION: COMPREHENSION: TYPE: Both COMPREHENSION - STEP 1: Does the patient require help from a person or device, or need extra time to understand complex and a bstract ideas (such as current events, finances, discharge planning, medical issues, relationships, e tc)? Yes. COMPREHENSION - STEP 2: Does the patient require help to understand questions or statements about basic needs or ideas (such as hunger, thirst, sleep, safety, daily schedule, room location, or discomfort) half or more of the t mattie? Yes. COMPREHENSION - STEP 3: Is the patient basically able to understand and respond appropriately and consistently? Yes. COMPREHENSION - SCORE: 2-MAX EXPRESSION EXPRESSION: TYPE: Both EXPRESSION - STEP 1: Does the patient require help from a person or device, or need extra time expressing complex and abst ract ideas (such as current events, finances, discharge planning, medical issues, relationships, etc) ? Yes. EXPRESSION - STEP 2: Does the patient require help to express basic necessities or ideas (such as hunger, thirst, sleep, s afety, daily schedule, room location, or discomfort) half or more of the time? Yes. EXPRESSION - STEP 3: Is the patient basically unable to express or does s/he express inappropriately or inconsistently bin pite prompting? No. EXPRESSION - SCORE: 2-MAX SOCIAL INTERACTION: SOCIAL INTERACTION - STEP 1: Does the patient require a helper to interact with others in social and therapeutic situations? No. SOCIAL INTERACTION - STEP 2: Does the patient need extra time in social situations, OR does s/he interact with staff, other patien ts, and family members ONLY in structured environments, OR does s/he require medication for social in teraction? Yes, patient needs extra time SOCIAL INTERACTION - SCORE: 6-GARRY PROBLEM SOLVING: PROBLEM SOLVING - STEP 1: Does the patient need help from a person or device, or need extra time to solve complex problems such as managing a checking account or confronting interpersonal problems? Yes. PROBLEM SOLVING - STEP 2: Does the patient solve basic routine problems half or more of the time? No. PROBLEM SOLVING - STEP 3: Does the patient need help to solve problems all the time or is s/he unable to solve problems? No. Rah tobar can sometimes solve problems PROBLEM SOLVING - SCORE: 2-MAX MEMORY: MEMORY - STEP 1: Does the patient need help from a person or device, or need extra time to remember frequently encount ered people, daily routines, and executing requests? Yes. MEMORY - STEP 2: How often does the patient need help to remember frequently encountered people, daily routines, and e xecuting requests? 10% - 24% of the time MEMORY - SCORE: 4-MIN SIGNATURE PANEL: The following modified sections: Eating - Score, Grooming - Score, Bathing - Score, Dressing - Upper Body - Score, Dressing - Lower Body - Score, Toileting - Score, Bladder Management - Score, Bowel Man agement - Score, Transfers: Bed, Chair, Wheelchair - Score, Transfers: Toilet - Score, Transfers: Tova wer - Score, Transfers: Tub - Score, Locomotion: Walk - Score, Locomotion: Wheelchair - Score, Compre hension - Score, Expression - Score, Social Interaction - Score, Problem Solving - Score, Memory - Sc ore were [electronically] signed by Talya Lane CNA on FriMar 23 2018 02:01:23 [facility]-0600 ([facility])
[2018-03-23] MEDS: TRAMADOL HCL 50 MG TAB PO PRN ×2 (05:37→17:00)
[2018-03-23] MEDS: PANTOPRAZOLE 40MG TABLET PO SCH (07:22)
[2018-03-23] MEDS: PROMOD 30 ML DOSE PO SCH ×2 (08:00→22:24)
[2018-03-23] MEDS: LIDOCAINE 5% PATCH TOP SCH (08:26)
[2018-03-23] MEDS: SODIUM CHLORIDE 1 GM TAB PO SCH ×2 (08:27→16:58)
[2018-03-23] MEDS: METHOCARBAMOL 500 MG TAB PO PRN (08:27)
[2018-03-23] MEDS: AMOX/K CLAV 500 MG TAB PO SCH (08:28)
[2018-03-23] MEDS: TAMSULOSIN 0.4 MG SR CAP PO SCH (08:28)
[2018-03-23] MEDS: CLOPIDOGREL 75 MG TABLET PO SCH (08:28)
[2018-03-23] MEDS: GABAPENTIN 400 MG CAP PO SCH ×3 (08:28→22:23)
[2018-03-23] MEDS: ASPIRIN EC 81 MG TAB PO SCH (08:28)
[2018-03-23] MEDS: VITAMIN D 1000 UNIT TAB PO SCH (08:28)
[2018-03-23] MEDS: MAGNESIUM OXIDE 400 MG TAB PO SCH (08:28)
[2018-03-23] MEDS: GUAIFENESIN 600 MG SA TAB PO SCH ×2 (08:28→22:23)
[2018-03-23] MEDS: DUTASTERIDE 0.5 MG CAPSULE PO SCH (08:29)
--- NOTE | 2018-03-23 08:54 | RAD REPORT ---
EXAM DESCRIPTION: RAD - Chest Single View - 03/23/2018 6:24 am CLINICAL HISTORY: R/O Pneumonia Chest pain. COMPARISON: Chest Single View dated 04/24/2016; Chest Single View dated 02/16/2016; Chest Single View dated 09/15/2015; Chest Pa And Lat (2 Views) dated 06/18/2015; Ribs Right dated 04/24/2016 FINDINGS: Portable technique limits examination quality. Moderate airspace opacity in the right lung base is present likely a combination of atelectasis and p neumonia/infiltrate. There is mild right lung volume loss present. The heart is normal in size.
--- NOTE | 2018-03-23 12:00 | EKG ---
Test Date: 2018-03-23 Test Time: 01:40:38 Cuff Setter Overlock: RT MEASUREMENT RESULTS: Intervals: Rate: 106 RI: 184 QRSD: 94 QT: 340 QTc: 451 [place]: P: 51 RI: 184 QRS: 7 T: 26 INTERPRETIVE STATEMENTS: Sinus tachycardia Otherwise normal ECG Compared to ECG 02/17/2016 05:33:39 Sinus rhythm no longer present Electronically Signed On 03-23-18 11:59:06 MOLD ENGRAVER by Sandeep Ramirez
[2018-03-23] MEDS ORDERED: MELATONIN 3 MG TABLET PO PRN (14:19)
[2018-03-23 14:48] LABS: Albumin 2.5 g/dL (3.4-5.0); Bilirubin Direct 0.2 mg/dL (0-0.2); Bilirubin Total 0.5 mg/dL (0.2-1.0)
--- NOTE | 2018-03-23 14:52 | FAST ---
SHIFT START DATE/TIME: 03/23/2018 07:00 (MATTRESS STUFFER) SHIFT END DATE/TIME: 03/23/2018 19:00 (MATTRESS STUFFER) NAME MUNIR CHAO DATE OF : 1935 DATE OF ADMISSION: 03/17/2018 18:37 (MATTRESS STUFFER) PHONE: AGE: 82 SSN# [id number] GENDER: Male ENCOUNTER PHYSICIAN: Dr. Bear Sousa M.D. 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 EATING: EATING - STEP 1: Does the patient require the assistance of a person or device, or need extra time when eating? Yes. EATING - STEP 2: Does the patient require the assistance of a helper? Yes. EATING - STEP 3: Does the patient perform half or more of the eating tasks? Yes. EATING - STEP 4: Does the patient need only supervision, cuing, coaxing OR help to apply an orthosis OR help to cut fo od, open containers, pour liquids, or butter bread? Yes. EATING - SCORE: 5-SUP GROOMING: Activity did not occur on this shift GROOMING - SCORE: 0-UNK BATHING: Activity did not occur on this shift BATHING - SCORE: 0-UNK DRESSING - UPPER BODY: Activity did not occur on this shift ARTICLES SCORE Total number of steps: 0 DRESSING - UPPER BODY - SCORE: 0-UNK DRESSING - LOWER BODY: Activity did not occur on this shift ARTICLES SCORE Total number of steps: 0 DRESSING - LOWER BODY - SCORE: 0-UNK TOILETING: Activity did not occur on this shift TOILETING - SCORE: 0-UNK TOILETING - COMMENTS: Pt has lr BLADDER MANAGEMENT: [place] cares for lr catheter including emptying drainage bag. BLADDER MANAGEMENT - SCORE: 1-DEP BLADDER MANAGEMENT - FREQUENCY OF ACCIDENTS: BLADDER MANAGEMENT(FA) - STEP 1: How many accidents has the patient had during the current shift? 0 BOWEL MANAGEMENT: Activity did not occur on this shift BOWEL MANAGEMENT - SCORE: 7-IND BOWEL MANAGEMENT - FREQUENCY OF ACCIDENTS: BOWEL MANAGEMENT(FA) - STEP 1: How many accidents has the patient had during the current shift? 0 TRANSFERS: BED, CHAIR, WHEELCHAIR: TRANSFERS: BED, CHAIR, WHEELCHAIR - STEP 1: Does the patient require assistance of a person or device, or need extra time with bed, chair, or whe elchair transfers? Yes. TRANSFERS: BED, CHAIR, WHEELCHAIR - STEP 2: Does the patient require the assistance of a helper? Yes. TRANSFERS: BED, CHAIR, WHEELCHAIR - STEP 3: How much assistance does the patient require from the helper? Lifting of the patient TRANSFERS: BED, CHAIR, WHEELCHAIR - STEP 4: Does the helper lift the patient ONLY up? ONLY down? Up AND Down? ONLY up. TRANSFERS: BED, CHAIR, WHEELCHAIR - SCORE: 3-MOD TRANSFERS: TOILET: Activity did not occur on this shift TRANSFERS: TOILET - SCORE: 0-UNK TRANSFERS: SHOWER: Activity did not occur on this shift TRANSFERS: SHOWER - SCORE: 0-UNK TRANSFERS: TUB: Activity did not occur on this shift TRANSFERS: TUB - SCORE: 0-UNK LOCOMOTION: WALK: Activity did not occur on this shift LOCOMOTION: WALK - SCORE: 0-UNK LOCOMOTION: WHEELCHAIR: Activity did not occur on this shift LOCOMOTION: WHEELCHAIR - SCORE: 0-UNK COMPREHENSION: COMPREHENSION: TYPE: Both COMPREHENSION - STEP 1: Does the patient require help from a person or device, or need extra time to understand complex and a bstract ideas (such as current events, finances, discharge planning, medical issues, relationships, e tc)? Yes. COMPREHENSION - STEP 2: Does the patient require help to understand questions or statements about basic needs or ideas (such as hunger, thirst, sleep, safety, daily schedule, room location, or discomfort) half or more of the t mattie? No. COMPREHENSION - STEP 3: How often does the patient need help to understand directions and conversation about basic needs? 10% - 24% of the time COMPREHENSION - SCORE: 4-MIN EXPRESSION EXPRESSION: TYPE: Both EXPRESSION - STEP 1: Does the patient require help from a person or device, or need extra time expressing complex and abst ract ideas (such as current events, finances, discharge planning, medical issues, relationships, etc) ? Yes. EXPRESSION - STEP 2: Does the patient require help to express basic necessities or ideas (such as hunger, thirst, sleep, s afety, daily schedule, room location, or discomfort) half or more of the time? No. EXPRESSION - STEP 3: How often does the patient need help to express directions and conversation about basic needs? Less t schneider 10% of the time EXPRESSION - SCORE: 5-SUP SOCIAL INTERACTION: SOCIAL INTERACTION - STEP 1: Does the patient require a helper to interact with others in social and therapeutic situations? Yes. SOCIAL INTERACTION - STEP 2: Does the patient interact appropriately half or more of the time? Yes. SOCIAL INTERACTION - STEP 3: How often does the patient need help to interact appropriately? 10-24% of the time SOCIAL INTERACTION - SCORE: 4-MIN PROBLEM SOLVING: PROBLEM SOLVING - STEP 1: Does the patient need help from a person or device, or need extra time to solve complex problems such as managing a checking account or confronting interpersonal problems? Yes. PROBLEM SOLVING - STEP 2: Does the patient solve basic routine problems half or more of the time? Yes. PROBLEM SOLVING - STEP 3: How often does the patient need help to solve basic routine problems? Less than 10% of the time PROBLEM SOLVING - SCORE: 5-SUP MEMORY: MEMORY - STEP 1: Does the patient need help from a person or device, or need extra time to remember frequently encount ered people, daily routines, and executing requests? Yes. MEMORY - STEP 2: How often does the patient need help to remember frequently encountered people, daily routines, and e xecuting requests? 10% - 24% of the time MEMORY - SCORE: 4-MIN SIGNATURE PANEL: The following modified sections: Eating - Score, Grooming - Score, Bathing - Score, Dressing - Upper Body - Score, Dressing - Lower Body - Score, Toileting - Score, Toileting - Comments:, Bladder Manage ment - Score, Bowel Management - Score, Transfers: Bed, Chair, Wheelchair - Score, Transfers: Toilet - Score, Transfers: Shower - Score, Transfers: Tub - Score, Locomotion: Walk - Score, Locomotion: Whe elchair - Score, Comprehension - Score, Expression - Score, Social Interaction - Score, Problem Solvi ng - Score, Memory - Score were [electronically] signed by Cyn Ptael C.N.A. on FriMar 23 2018 14 :51:48 GMT-0600 (Central Standard Time)
--- NOTE | 2018-03-23 15:50 | FAST ---
ENCOUNTER DATE AND TIME: 03/23/2018 08:00 (FLEET SERVICE CLERK) NAME MUNIR CHAO DATE OF : 1935 DATE OF ADMISSION: 03/17/2018 18:37 (FLEET SERVICE CLERK) PHONE: AGE: 82 SSN# [id number] GENDER: Male ENCOUNTER PHYSICIAN: Dr. Bear Sousa M.D. 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 EATING: Activity did not occur on this shift EATING - SCORE: 0-UNK GROOMING: Activity did not occur on this shift GROOMING - SCORE: 0-UNK BATHING: Activity did not occur on this shift BATHING - SCORE: 0-UNK DRESSING - UPPER BODY: Activity did not occur on this shift Patient is not dressing in public clothing ARTICLES SCORE Total number of steps: 0 DRESSING - UPPER BODY - SCORE: 0-UNK DRESSING - LOWER BODY: Activity did not occur on this shift Patient is not dressing in public clothing ARTICLES SCORE Total number of steps: 0 DRESSING - LOWER BODY - SCORE: 0-UNK TOILETING: Activity did not occur on this shift TOILETING - SCORE: 0-UNK BLADDER MANAGEMENT: Activity did not occur on this shift BLADDER MANAGEMENT - SCORE: 7-IND BOWEL MANAGEMENT: Activity did not occur on this shift BOWEL MANAGEMENT - SCORE: 7-IND TRANSFERS: BED, CHAIR, WHEELCHAIR: TRANSFERS: BED, CHAIR, WHEELCHAIR - STEP 1: Does the patient require assistance of a person or device, or need extra time with bed, chair, or whe elchair transfers? Yes. TRANSFERS: BED, CHAIR, WHEELCHAIR - STEP 2: Does the patient require the assistance of a helper? Yes. TRANSFERS: BED, CHAIR, WHEELCHAIR - STEP 3: How much assistance does the patient require from the helper? Lifting of the legs TRANSFERS: BED, CHAIR, WHEELCHAIR - STEP 4: How many legs does the patient require the helper to lift? both legs TRANSFERS: BED, CHAIR, WHEELCHAIR - SCORE: 3-MOD TRANSFERS: TOILET: Activity did not occur on this shift TRANSFERS: TOILET - SCORE: 0-UNK TRANSFERS: SHOWER: Activity did not occur on this shift TRANSFERS: SHOWER - SCORE: 0-UNK TRANSFERS: TUB: Activity did not occur on this shift TRANSFERS: TUB - SCORE: 0-UNK LOCOMOTION: WALK: LOCOMOTION: WALK - STEP 1: Does the patient need help from a person or device, or need extra time to walk 150 feet? Yes. LOCOMOTION: WALK - STEP 2: How much assistance does the patient require to walk a minimum of 150 feet? Patient walks less than 1 50 feet - but more than 50 feet - with the assistance of only one helper LOCOMOTION: WALK - SCORE: 2-MAX LOCOMOTION: WHEELCHAIR: LOCOMOTION: WHEELCHAIR - STEP 1: Does the patient need help to go 150 feet in a wheelchair? Yes. LOCOMOTION: WHEELCHAIR - STEP 2: How much assistance does the patient need from the helper? Patient goes less than 150 feet - but more than 50 feet - with the assistance of only one helper LOCOMOTION: WHEELCHAIR - SCORE: 2-MAX LOCOMOTION: STAIRS: Activity did not occur on this shift LOCOMOTION: STAIRS - SCORE: 0-UNK COMPREHENSION: COMPREHENSION - SCORE: 0-UNK EXPRESSION EXPRESSION - SCORE: 0-UNK SOCIAL INTERACTION: SOCIAL INTERACTION - SCORE: 0-UNK PROBLEM SOLVING: PROBLEM SOLVING - SCORE: 0-UNK MEMORY: MEMORY - SCORE: 0-UNK SIGNATURE PANEL: The following modified sections: Transfers: Bed, Chair, Wheelchair - Score, Transfers: Toilet - Score , Locomotion: Walk - Score, Locomotion: Wheelchair - Score, Locomotion: Stairs - Score were [electron asael] signed by Elie Anthony PTA on FriMar 23 2018 15:49:32 GMT-0600 (Central Standard Time)
--- NOTE | 2018-03-23 16:21 | FAST ---
ENCOUNTER DATE AND TIME: 03/23/2018 08:00 (NURSE PRACTITIONER ADULT) NAME MUNIR CHAO DATE OF : 1935 DATE OF ADMISSION: 03/17/2018 18:37 (NURSE PRACTITIONER ADULT) PHONE: AGE: 82 SSN# [id number] GENDER: Male ENCOUNTER PHYSICIAN: Dr. Bear Sousa M.D. 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 EATING: Activity did not occur on this shift EATING - SCORE: 0-UNK GROOMING: Wash, rinse, and dry face Wash, rinse, and dry hands GROOMING - STEP 1: Does the patient require the assistance of a person or device, or need extra time when grooming? Yes. GROOMING - STEP 2: Does the patient require the assistance of a helper? Yes. GROOMING - STEP 3: How much assistance does the patient require from the helper? Cuing, coaxing, instructions, or encour agement for completion of grooming GROOMING - SCORE: 5-SUP BATHING: Abdomen Buttocks Left arm Left lower leg and foot Left upper leg Perineal area Right arm Right lower leg and foot Right upper leg BATHING - STEP 1: Does the patient require the assistance of a person or device, or need extra time when bathing? Yes. BATHING - STEP 2: Does the patient require the assistance of a helper? Yes. BATHING - STEP 3: How much assistance does the patient require from the helper? Only incidental help such as placement of a wash cloth in his/her hand a few times as s/he bathes OR help to bathe just one or two areas of the body BATHING - SCORE: 4-MIN DRESSING - UPPER BODY: T-shirt/pullover shirt (four steps) ARTICLES SCORE Total number of steps: 4 DRESSING - UPPER BODY - STEP 1: Does the patient require help from a person or device, or need extra time when dressing above the tomas st? Yes. DRESSING - UPPER BODY - STEP 2: Does the patient require the assistance of a helper? Yes. DRESSING - UPPER BODY - STEP 3: Does the helper touch the patient while dressing? Yes. DRESSING - UPPER BODY - STEP 4: How many of the total steps does the patient complete on his/her own? 3 DRESSING - UPPER BODY - SCORE: 4-MIN DRESSING - LOWER BODY: Elastic waist pants (three steps) Sock - Left foot (one step) Sock - Right foot (one step) Underwear (three steps) ARTICLES SCORE Total number of steps: 8 DRESSING - LOWER BODY - STEP 1: Does the patient require help from a person or device, or need extra time when dressing below the tomas st? Yes. DRESSING - LOWER BODY - STEP 2: Does the patient require the assistance of a helper? Yes. DRESSING - LOWER BODY - STEP 3: Does the helper touch the patient while dressing? Yes. DRESSING - LOWER BODY - STEP 4: How many of the total steps does the patient complete on his/her own? 2 DRESSING - LOWER BODY - STEP 5: Does patient require total assistance for dressing below the waist such as the helper holding clothin g and performing basically all the activities? No. DRESSING - LOWER BODY - SCORE: 2-MAX TOILETING: TOILETING - STEP 1: Does the patient require the assistance of a person or device, or need extra time with toileting? Yes . TOILETING - STEP 2: Does the patient require the assistance of a helper? Yes. TOILETING - STEP 3: How much assistance does the patient require from the helper? Hands-on assistance from the helper TOILETING - STEP 4: Of the 3 tasks: 1) Adjusting clothing prior to use, 2) Cleansing of perineal area, 3) Adjusting clot blake after use; How many tasks does the patient perform WITHOUT assistance of the helper? One task TOILETING - SCORE: 2-MAX BLADDER MANAGEMENT: Activity did not occur on this shift BLADDER MANAGEMENT - SCORE: 7-IND BOWEL MANAGEMENT: Activity did not occur on this shift BOWEL MANAGEMENT - SCORE: 7-IND TRANSFERS: BED, CHAIR, WHEELCHAIR: Activity did not occur on this shift TRANSFERS: BED, CHAIR, WHEELCHAIR - SCORE: 0-UNK TRANSFERS: TOILET: TRANSFERS: TOILET - STEP 1: Does the patient require the assistance of a person or device, or need extra time with toilet transfe rs? Yes. TRANSFERS: TOILET - STEP 2: Does the patient require the assistance of a helper? Yes. TRANSFERS: TOILET - STEP 3: How much assistance does the patient require from the helper? Patient performs half or more of the tr ansferring tasks TRANSFERS: TOILET - STEP 4: Does the patient need only incidental help such as contact guard or steadying during toilet transfer? Yes. TRANSFERS: TOILET - SCORE: 4-MIN TRANSFERS: SHOWER: Activity did not occur on this shift TRANSFERS: SHOWER - SCORE: 0-UNK TRANSFERS: TUB: TRANSFERS: TUB - STEP 1: Does the patient require the assistance of a person or device, or need extra time with tub transfers? Yes. TRANSFERS: TUB - STEP 2: Does the patient require the assistance of a helper? Yes. TRANSFERS: TUB - STEP 3: How much assistance does the patient require from the helper? Incidental help such as contact guardin g or steadying, OR help to lift one leg into the tub TRANSFERS: TUB - SCORE: 4-MIN LOCOMOTION: WALK: Activity did not occur on this shift LOCOMOTION: WALK - SCORE: 0-UNK LOCOMOTION: WHEELCHAIR: Activity did not occur on this shift LOCOMOTION: WHEELCHAIR - SCORE: 0-UNK LOCOMOTION: STAIRS: Activity did not occur on this shift LOCOMOTION: STAIRS - SCORE: 0-UNK COMPREHENSION: COMPREHENSION: TYPE: Both COMPREHENSION - STEP 1: Does the patient require help from a person or device, or need extra time to understand complex and a bstract ideas (such as current events, finances, discharge planning, medical issues, relationships, e tc)? Yes. COMPREHENSION - STEP 2: Does the patient require help to understand questions or statements about basic needs or ideas (such as hunger, thirst, sleep, safety, daily schedule, room location, or discomfort) half or more of the t mattie? Yes. COMPREHENSION - STEP 3: Is the patient basically able to understand and respond appropriately and consistently? Yes. COMPREHENSION - SCORE: 2-MAX EXPRESSION EXPRESSION: TYPE: Both EXPRESSION - STEP 1: Does the patient require help from a person or device, or need extra time expressing complex and abst ract ideas (such as current events, finances, discharge planning, medical issues, relationships, etc) ? Yes. EXPRESSION - STEP 2: Does the patient require help to express basic necessities or ideas (such as hunger, thirst, sleep, s afety, daily schedule, room location, or discomfort) half or more of the time? No. EXPRESSION - STEP 3: How often does the patient need help to express directions and conversation about basic needs? 10-24% of the time EXPRESSION - SCORE: 4-MIN SOCIAL INTERACTION: SOCIAL INTERACTION - STEP 1: Does the patient require a helper to interact with others in social and therapeutic situations? Yes. SOCIAL INTERACTION - STEP 2: Does the patient interact appropriately half or more of the time? Yes. SOCIAL INTERACTION - STEP 3: How often does the patient need help to interact appropriately? 10-24% of the time SOCIAL INTERACTION - SCORE: 4-MIN PROBLEM SOLVING: PROBLEM SOLVING - STEP 1: Does the patient need help from a person or device, or need extra time to solve complex problems such as managing a checking account or confronting interpersonal problems? Yes. PROBLEM SOLVING - STEP 2: Does the patient solve basic routine problems half or more of the time? No. PROBLEM SOLVING - STEP 3: Does the patient need help to solve problems all the time or is s/he unable to solve problems? No. Rah tobar can sometimes solve problems PROBLEM SOLVING - SCORE: 2-MAX MEMORY: MEMORY - STEP 1: Does the patient need help from a person or device, or need extra time to remember frequently encount ered people, daily routines, and executing requests? Yes. MEMORY - STEP 2: How often does the patient need help to remember frequently encountered people, daily routines, and e xecuting requests? 25% - 49% of the time MEMORY - SCORE: 3-MOD SIGNATURE PANEL: The following modified sections: Eating - Score, Grooming - Score, Bathing - Score, Dressing - Upper Body - Score, Dressing - Lower Body - Score, Toileting - Score, Transfers: Bed, Chair, Wheelchair - S core, Transfers: Toilet - Score, Transfers: Shower - Score, Transfers: Tub - Score, Comprehension - S core, Expression - Score, Social Interaction - Score, Problem Solving - Score, Memory - Score were [e lectronically] signed by Maddie Gutierrez OT on FriMar 23 2018 16:20:34 T-0600 ([facility])
[2018-03-23] MEDS: ENOXAPARIN 40 MG/0.4 ML SQ SCH (16:58)
[2018-03-23] MEDS: BISACODYL E.C. 5 MG TAB PO PRN (17:00)
--- NOTE | 2018-03-23 18:21 | RAD REPORT ---
EXAM DESCRIPTION: US - Liver Only - 03/23/2018 6:11 pm CLINICAL HISTORY: Abdominal pain/abnormal liver function test enzymes COMPARISON: None FINDINGS: The liver has a considerably increased echotexture. Liver appears borderline enlarged. Hep atopetal flow is present Gallstones are noted. IMPRESSION: Increased hepatic echotexture consistent with fatty infiltration. Cholelithiasis
--- NOTE | 2018-03-23 18:31 | R.PN ---
ENCOUNTER DATE AND TIME: 03/23/2018 18:28 (INSULATION AND FLOORING ASSEMBLER) NAME MUNIR CHAO DATE OF : 1935 DATE OF ADMISSION: 03/17/2018 18:37 (INSULATION AND FLOORING ASSEMBLER) Spinal stenosisCHIEF COMPLAINT: Spinal stenosis, S/P decompression SUBJECTIVE: Pt denied any depression. Pt denied any Shortness of Breath. Patient states that pain is under control. Ambulated 142' with contact guard assistance using a rolling walker. Propelled wheelchair 160' with contact guard assistance. Ambulated 500' with standby assistance using a rolling walker. VITAL SIGNS Temperature: 98.4 F SBP/DBP: 133/65 Pulse: 108 Resp: 16 Ambulated 230' with minimum assistance using a rolling walker. MEDICATION ALLERGIES: LEVOFLOXACIN INFLUENZA VIRUS VACCINE codeine ENVIRONMENTAL ALLERGIES: - Substance Allergies None Known - Other Allergies None Known NURSING: - Shower allowing shower - Bladder care per protocol - Skin care per protocol ACTIVITIES OOB only with supervision THERAPIES: - Orthotics/Prosthetics Orthotic Evaluation. Splinting/Casting. - Occupational Therapy Evaluate and Treat. - Physical Therapy Evaluate and Treat. PHYSICAL EXAM - Gen Alert and awake Lying in bed No apparent distress Oriented to: person, time, and place - Skin No beakdown No abnormalities - Eyes No abnormalities - ENMT No abnormalities - Neck No abnormalities - CVS RRR - Chest Clear - Abd + bowel sounds - GI nondistended Deferred - Frequent urination due to UTI. - Ext Mild bilateral lower extremity edema. - MSK 4+/5 weakness in both lower extremities. Back muscle spasms. - Neuro 4/5 strength bilaterally lower extremities. - Psych No abnormalities ASSESSMENT: Pt. 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 was independent/mod-I in Self-Care, Sphincter Control, Transfe rs Control, and Locomotion; and he had good Sphincter Control.Currently, he has deficits of Balance, Self-Care, Endurance, Safety Awareness, Transfers Control, Communication, Social Cognition, and Locom otion.Pt. is now referred to [facility] for acute in-patient rehabilitation in order to maximize patient's functional independence in activities of daily living, strength, ROM, an d mobility.- Rehab Goal Patient has realistic goal of being discharged at assistance level 6-Laura to reside at Home with Fam francine/Relatives. MDM/PLAN: - Physical Therapy Gait dysfunction - to improve, our physical therapists will perform initial evaluation of pt's statu s upon admission and devise an individualized program for Gait Training, and Wheel Chair mobility Inability to transfer - to improve, our physical therapists will perform initial evaluation of pt's status upon admission and devise an individualized program for Bed mobility Need for home safety evaluation - to improve, our physical therapists will perform initial evaluatio n of pt's status upon admission and devise an individualized program for Home Evaluation Need in caregiver upon discharge - to improve, our physical therapists will perform initial evaluati on of pt's status upon admission and devise an individualized program for Caregiver Training Edema - to improve, our physical therapists will perform initial evaluation of pt's status upon admi ssion and devise an individualized program for Elevation Training, and Lymphedema Therapy New precaution - to improve, our physical therapists will perform initial evaluation of pt's status upon admission and devise an individualized program for Patient precaution education Poor balance - to improve, our physical therapists will perform initial evaluation of pt's status up on admission and devise an individualized program for Balance Training Poor endurance - to improve, our physical therapists will perform initial evaluation of pt's status upon admission and devise an individualized program for Endurance Training Weakness - to improve, our physical therapists will perform initial evaluation of pt's status upon a dmission and devise an individualized program for Aquatic Therapy, Neuromuscular Reeducation, and Str engthening Achieving independence - to improve, our physical therapists will perform initial evaluation of pt's status upon admission and devise an individualized program for Community Reintegration Activities - Occupational Therapy ADL deficits - to improve, our occupation therapists will perform initial evaluation of pt's status upon admission and devise an individualized program for Bathing, Bed mobility, Community Reintegratio n, Cooking, Dressing, Eating, Fine Motor Skills, Grooming, Homemaking, Kitchen Mobility, Laundry, Pat ient Education, Safety Awareness, Splinting - Positioning, Transfers(Toilet, Tub, Shower), and Wheel Chair Management Cognitive deficits - to improve, our occupation therapists will perform initial evaluation of pt's s tatus upon admission and devise an individualized program for Cognition - orientation Need for health care law specialist - to improve, our occupation therapists will perform initial evaluation of pt's status upon admission and devise an individualized program for Caregiver Training Weakness - to improve, our occupation therapists will perform initial evaluation of pt's status upon admission and devise an individualized program for Aquatic Therapy, Balance, Endurance, UE ROM, and UE strengthening - Diet Type Continue Regular - Diet - Liquid Texture Continue Regular - Tube Feed Continue N/A - Bladder care per protocol - Skin care per protocol - Diet - Solid Texture Continue Regular - Shower allowing shower FUNCTIONAL STATUS: UPDATED AT WEEKLY TEAM CONFERENCE - Bladder Same accident frequency: 7-Ind - No accidents in the past 7 days - Bowel Same accident frequency: 7-Ind - No accidents in the past 7 days - Walking Same score based on distance walked: 2(50-149ft) FUNCTIONAL STATUS: - Self-Care A. Eating sup B. Grooming sup C. Bathing sup D. Dressing - Upper Umesh E. Dressing - Lower modA F. Toileting Ind - Sphincter Control G: Bladder control Dep H: Bowel control Dep - Transfers Control I. Bed/Chair/Wheelchair modA J. Toilet modA K. Tub/Shower modA - Locomotion L. Walk/Wheelchair (B) modA M. Stairs ADNO - Communication N. Comprehension (B) modA O. Expression (B) sup - Social Cognition P. Social Interaction sup Q. Problem Solving Umesh R. Memory Umesh - Endurance Fair - Balance Poor - Safety Awareness Poor CURRENT FUNC. DEFICITS: Balance, Self-Care, Endurance, Safety Awareness, Transfers Control, Communication, Social Cognition, and Locomotion SIGNATURE PANEL: (INSULATION AND FLOORING ASSEMBLER)
[2018-03-23] MEDS: ATORVASTATIN 40 MG TAB PO SCH (22:23)
[2018-03-23] MEDS: DOCUSATE NA/SENNA CONC 1 TAB PO PRN (22:23)
[2018-03-24] MEDS: HYDROCODONE/APAP 5/325 MG TAB PO PRN ×3 (01:25→17:11)
[2018-03-24] MEDS: IPRATROPIUM BROM 0.5MG/2.5ML IH SCH ×4 (01:43→20:55)
[2018-03-24] MEDS: ALBUTEROL 2.5 MG/3 ML NEB SOL NEB SCH ×4 (01:43→20:55)
--- NOTE | 2018-03-24 02:08 | FAST ---
SHIFT START DATE/TIME: 03/23/2018 19:00 (SALES BRANCH MANAGER) SHIFT END DATE/TIME: 03/24/2018 07:00 (SALES BRANCH MANAGER) NAME MUNIR CHAO DATE OF : 1935 DATE OF ADMISSION: 03/17/2018 18:37 (SALES BRANCH MANAGER) PHONE: AGE: 82 SSN# [id number] GENDER: Male ENCOUNTER PHYSICIAN: Dr. Bear Sousa M.D. 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 EATING: Activity did not occur on this shift EATING - SCORE: 0-UNK GROOMING: Activity did not occur on this shift GROOMING - SCORE: 0-UNK BATHING: Activity did not occur on this shift BATHING - SCORE: 0-UNK DRESSING - UPPER BODY: Patient is not dressing in public clothing ARTICLES SCORE Total number of steps: 0 DRESSING - UPPER BODY - SCORE: 0-UNK DRESSING - LOWER BODY: Patient is not dressing in public clothing ARTICLES SCORE Total number of steps: 0 DRESSING - LOWER BODY - SCORE: 0-UNK TOILETING: Activity did not occur on this shift TOILETING - SCORE: 0-UNK BLADDER MANAGEMENT: [place] cares for lr catheter including emptying drainage bag. BLADDER MANAGEMENT - SCORE: 1-DEP BOWEL MANAGEMENT: Activity did not occur on this shift BOWEL MANAGEMENT - SCORE: 7-IND TRANSFERS: BED, CHAIR, WHEELCHAIR: Activity did not occur on this shift TRANSFERS: BED, CHAIR, WHEELCHAIR - SCORE: 0-UNK TRANSFERS: TOILET: Activity did not occur on this shift TRANSFERS: TOILET - SCORE: 0-UNK TRANSFERS: SHOWER: Activity did not occur on this shift TRANSFERS: SHOWER - SCORE: 0-UNK TRANSFERS: TUB: Activity did not occur on this shift TRANSFERS: TUB - SCORE: 0-UNK LOCOMOTION: WALK: Activity did not occur on this shift LOCOMOTION: WALK - SCORE: 0-UNK LOCOMOTION: WHEELCHAIR: Activity did not occur on this shift LOCOMOTION: WHEELCHAIR - SCORE: 0-UNK COMPREHENSION: COMPREHENSION: TYPE: Both COMPREHENSION - STEP 1: Does the patient require help from a person or device, or need extra time to understand complex and a bstract ideas (such as current events, finances, discharge planning, medical issues, relationships, e tc)? Yes. COMPREHENSION - STEP 2: Does the patient require help to understand questions or statements about basic needs or ideas (such as hunger, thirst, sleep, safety, daily schedule, room location, or discomfort) half or more of the t mattie? No. COMPREHENSION - STEP 3: How often does the patient need help to understand directions and conversation about basic needs? 25% - 49% of the time COMPREHENSION - SCORE: 3-MOD EXPRESSION EXPRESSION: TYPE: Both EXPRESSION - STEP 1: Does the patient require help from a person or device, or need extra time expressing complex and abst ract ideas (such as current events, finances, discharge planning, medical issues, relationships, etc) ? Yes. EXPRESSION - STEP 2: Does the patient require help to express basic necessities or ideas (such as hunger, thirst, sleep, s afety, daily schedule, room location, or discomfort) half or more of the time? No. EXPRESSION - STEP 3: How often does the patient need help to express directions and conversation about basic needs? 25-49% of the time EXPRESSION - SCORE: 3-MOD SOCIAL INTERACTION: SOCIAL INTERACTION - STEP 1: Does the patient require a helper to interact with others in social and therapeutic situations? No. SOCIAL INTERACTION - STEP 2: Does the patient need extra time in social situations, OR does s/he interact with staff, other patien ts, and family members ONLY in structured environments, OR does s/he require medication for social in teraction? Yes, patient needs extra time SOCIAL INTERACTION - SCORE: 6-GARRY PROBLEM SOLVING: PROBLEM SOLVING - STEP 1: Does the patient need help from a person or device, or need extra time to solve complex problems such as managing a checking account or confronting interpersonal problems? Yes. PROBLEM SOLVING - STEP 2: Does the patient solve basic routine problems half or more of the time? Yes. PROBLEM SOLVING - STEP 3: How often does the patient need help to solve basic routine problems? 25%-49% of the time PROBLEM SOLVING - SCORE: 3-MOD MEMORY: MEMORY - STEP 1: Does the patient need help from a person or device, or need extra time to remember frequently encount ered people, daily routines, and executing requests? Yes. MEMORY - STEP 2: How often does the patient need help to remember frequently encountered people, daily routines, and e xecuting requests? 25% - 49% of the time MEMORY - SCORE: 3-MOD SIGNATURE PANEL: The following modified sections: Eating - Score, Grooming - Score, Dressing - Upper Body - Score, Alcides ssing - Lower Body - Score, Toileting - Score, Bladder Management - Score, Bowel Management - Score, Transfers: Bed, Chair, Wheelchair - Score, Transfers: Toilet - Score, Transfers: Shower - Score, [place]illo sfers: Tub - Score, Locomotion: Walk - Score, Locomotion: Wheelchair - Score, Comprehension - Score, Expression - Score, Social Interaction - Score, Problem Solving - Score, Memory - Score were [electro nically] signed by Belén Sorto CNA on FriMar 24 2018 02:07:36 GMT-0600 (Central Standard Time)
[2018-03-24 06:03] LABS: Urine Appearance TURBID; Urine Bilirubin NEGATIVE (NEG); Urine Blood 2+ (NEG); Urine Color YELLOW; Urine Glucose NEGATIVE (NEG); Urine Protein 2+ (NEG); Urine Specific Gravity 1.025 (1.005-1.030); Urine Urobilinogen 0.2 mg/dL (0.2-1.0); Urine pH 5.5 (5.0-7.0)
[2018-03-24 06:05] LABS: Urine Microscopic Reflex ORDER UMIC
[2018-03-24] MEDS: TRAMADOL HCL 50 MG TAB PO PRN ×2 (06:13→20:31)
[2018-03-24 06:21] LABS: Urine Amorphous Sediment 2+ /HPF (NONE SEEN); Urine Bacteria <20 /HPF (NONE SEEN); Urine Culture Reflex Order NOT NEEDED; Urine RBC <5 /HPF (NONE SEEN)
[2018-03-24 07:03] LABS: Ferritin 1166.3 ng/mL (26-388)
[2018-03-24] MEDS: DUTASTERIDE 0.5 MG CAPSULE PO SCH (08:19)
[2018-03-24] MEDS: GABAPENTIN 400 MG CAP PO SCH ×3 (08:20→20:29)
[2018-03-24] MEDS: PANTOPRAZOLE 40MG TABLET PO SCH (08:20)
[2018-03-24] MEDS: GUAIFENESIN 600 MG SA TAB PO SCH ×2 (08:20→20:31)
[2018-03-24] MEDS: ASPIRIN EC 81 MG TAB PO SCH (08:20)
[2018-03-24] MEDS: CLOPIDOGREL 75 MG TABLET PO SCH (08:20)
[2018-03-24] MEDS: LIDOCAINE 5% PATCH TOP SCH (08:20)
[2018-03-24] MEDS: VITAMIN D 1000 UNIT TAB PO SCH (08:20)
[2018-03-24] MEDS: TAMSULOSIN 0.4 MG SR CAP PO SCH (08:20)
[2018-03-24] MEDS: SODIUM CHLORIDE 1 GM TAB PO SCH ×2 (08:20→17:09)
[2018-03-24] MEDS: MAGNESIUM OXIDE 400 MG TAB PO SCH (08:20)
[2018-03-24] MEDS: PROMOD 30 ML DOSE PO SCH ×2 (08:21→20:31)
[2018-03-24] MEDS: BISACODYL 10 MG RECTAL SUPP PR PRN ×2 (08:54→11:51)
--- NOTE | 2018-03-24 11:23 | FAST ---
SHIFT START DATE/TIME: 03/24/2018 07:00 (AIRCRAFT ENGINEER) SHIFT END DATE/TIME: 03/24/2018 19:00 (AIRCRAFT ENGINEER) NAME MUNIR CHAO DATE OF : 1935 DATE OF ADMISSION: 03/17/2018 18:37 (AIRCRAFT ENGINEER) PHONE: AGE: 82 SSN# [id number] GENDER: Male ENCOUNTER PHYSICIAN: Dr. Bear Sousa M.D. 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 EATING: EATING - STEP 1: Does the patient require the assistance of a person or device, or need extra time when eating? Yes. EATING - STEP 2: Does the patient require the assistance of a helper? Yes. EATING - STEP 3: Does the patient perform half or more of the eating tasks? Yes. EATING - STEP 4: Does the patient need only supervision, cuing, coaxing OR help to apply an orthosis OR help to cut fo od, open containers, pour liquids, or butter bread? Yes. EATING - SCORE: 5-SUP GROOMING: Activity did not occur on this shift GROOMING - SCORE: 0-UNK BATHING: Activity did not occur on this shift BATHING - SCORE: 0-UNK DRESSING - UPPER BODY: Activity did not occur on this shift ARTICLES SCORE Total number of steps: 0 DRESSING - UPPER BODY - SCORE: 0-UNK DRESSING - LOWER BODY: Activity did not occur on this shift ARTICLES SCORE Total number of steps: 0 DRESSING - LOWER BODY - SCORE: 0-UNK TOILETING: Activity did not occur on this shift TOILETING - SCORE: 0-UNK TOILETING - COMMENTS: Pt has lr BLADDER MANAGEMENT: [place] cares for lr catheter including emptying drainage bag. BLADDER MANAGEMENT - SCORE: 1-DEP BLADDER MANAGEMENT - FREQUENCY OF ACCIDENTS: BLADDER MANAGEMENT(FA) - STEP 1: How many accidents has the patient had during the current shift? 0 BOWEL MANAGEMENT: Activity did not occur on this shift BOWEL MANAGEMENT - SCORE: 7-IND BOWEL MANAGEMENT - FREQUENCY OF ACCIDENTS: BOWEL MANAGEMENT(FA) - STEP 1: How many accidents has the patient had during the current shift? 0 TRANSFERS: BED, CHAIR, WHEELCHAIR: TRANSFERS: BED, CHAIR, WHEELCHAIR - STEP 1: Does the patient require assistance of a person or device, or need extra time with bed, chair, or whe elchair transfers? Yes. TRANSFERS: BED, CHAIR, WHEELCHAIR - STEP 2: Does the patient require the assistance of a helper? Yes. TRANSFERS: BED, CHAIR, WHEELCHAIR - STEP 3: How much assistance does the patient require from the helper? Lifting of the legs TRANSFERS: BED, CHAIR, WHEELCHAIR - STEP 4: How many legs does the patient require the helper to lift? both legs TRANSFERS: BED, CHAIR, WHEELCHAIR - SCORE: 3-MOD TRANSFERS: TOILET: TRANSFERS: TOILET - STEP 1: Does the patient require the assistance of a person or device, or need extra time with toilet transfe rs? Yes. TRANSFERS: TOILET - STEP 2: Does the patient require the assistance of a helper? Yes. TRANSFERS: TOILET - STEP 3: How much assistance does the patient require from the helper? Patient performs half or more of the tr ansferring tasks TRANSFERS: TOILET - STEP 4: Does the patient need only incidental help such as contact guard or steadying during toilet transfer? Yes. TRANSFERS: TOILET - SCORE: 4-MIN TRANSFERS: SHOWER: Activity did not occur on this shift TRANSFERS: SHOWER - SCORE: 0-UNK TRANSFERS: TUB: Activity did not occur on this shift TRANSFERS: TUB - SCORE: 0-UNK LOCOMOTION: WALK: Activity did not occur on this shift LOCOMOTION: WALK - SCORE: 0-UNK LOCOMOTION: WHEELCHAIR: Activity did not occur on this shift LOCOMOTION: WHEELCHAIR - SCORE: 0-UNK COMPREHENSION: COMPREHENSION: TYPE: Both COMPREHENSION - STEP 1: Does the patient require help from a person or device, or need extra time to understand complex and a bstract ideas (such as current events, finances, discharge planning, medical issues, relationships, e tc)? Yes. COMPREHENSION - STEP 2: Does the patient require help to understand questions or statements about basic needs or ideas (such as hunger, thirst, sleep, safety, daily schedule, room location, or discomfort) half or more of the t mattie? No. COMPREHENSION - STEP 3: How often does the patient need help to understand directions and conversation about basic needs? 10% - 24% of the time COMPREHENSION - SCORE: 4-MIN EXPRESSION EXPRESSION: TYPE: Both EXPRESSION - STEP 1: Does the patient require help from a person or device, or need extra time expressing complex and abst ract ideas (such as current events, finances, discharge planning, medical issues, relationships, etc) ? Yes. EXPRESSION - STEP 2: Does the patient require help to express basic necessities or ideas (such as hunger, thirst, sleep, s afety, daily schedule, room location, or discomfort) half or more of the time? No. EXPRESSION - STEP 3: How often does the patient need help to express directions and conversation about basic needs? Less t schneider 10% of the time EXPRESSION - SCORE: 5-SUP SOCIAL INTERACTION: SOCIAL INTERACTION - STEP 1: Does the patient require a helper to interact with others in social and therapeutic situations? Yes. SOCIAL INTERACTION - STEP 2: Does the patient interact appropriately half or more of the time? Yes. SOCIAL INTERACTION - STEP 3: How often does the patient need help to interact appropriately? 10-24% of the time SOCIAL INTERACTION - SCORE: 4-MIN PROBLEM SOLVING: PROBLEM SOLVING - STEP 1: Does the patient need help from a person or device, or need extra time to solve complex problems such as managing a checking account or confronting interpersonal problems? Yes. PROBLEM SOLVING - STEP 2: Does the patient solve basic routine problems half or more of the time? Yes. PROBLEM SOLVING - STEP 3: How often does the patient need help to solve basic routine problems? Less than 10% of the time PROBLEM SOLVING - SCORE: 5-SUP MEMORY: MEMORY - STEP 1: Does the patient need help from a person or device, or need extra time to remember frequently encount ered people, daily routines, and executing requests? Yes. MEMORY - STEP 2: How often does the patient need help to remember frequently encountered people, daily routines, and e xecuting requests? Less than 10% of the time MEMORY - SCORE: 5-SUP SIGNATURE PANEL: The following modified sections: Eating - Score, Grooming - Score, Bathing - Score, Dressing - Upper Body - Score, Dressing - Lower Body - Score, Toileting - Score, Toileting - Comments:, Bladder Manage ment - Score, Bowel Management - Score, Transfers: Bed, Chair, Wheelchair - Score, Transfers: Toilet - Score, Transfers: Shower - Score, Transfers: Tub - Score, Locomotion: Walk - Score, Locomotion: Whe elchair - Score, Comprehension - Score, Expression - Score, Social Interaction - Score, Problem Solvi ng - Score, Memory - Score were [electronically] signed by Cyn Patel C.N.A. on FriMar 24 2018 11 :23:02 GMT-0600 (Central Standard Time)
[2018-03-24] MEDS: METHOCARBAMOL 500 MG TAB PO PRN (11:51)
--- NOTE | 2018-03-24 14:50 | FAST ---
ENCOUNTER DATE AND TIME: 03/24/2018 08:00 (DEPLOYMENT ENGINEER) NAME MUNIR CHAO DATE OF : 1935 DATE OF ADMISSION: 03/17/2018 18:37 (DEPLOYMENT ENGINEER) PHONE: AGE: 82 SSN# [id number] GENDER: Male ENCOUNTER PHYSICIAN: Dr. Bear Sousa M.D. 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 EATING: Activity did not occur on this shift EATING - SCORE: 0-UNK GROOMING: Activity did not occur on this shift GROOMING - SCORE: 0-UNK BATHING: Activity did not occur on this shift BATHING - SCORE: 0-UNK DRESSING - UPPER BODY: Activity did not occur on this shift Patient is not dressing in public clothing ARTICLES SCORE Total number of steps: 0 DRESSING - UPPER BODY - SCORE: 0-UNK DRESSING - LOWER BODY: Activity did not occur on this shift Patient is not dressing in public clothing ARTICLES SCORE Total number of steps: 0 DRESSING - LOWER BODY - SCORE: 0-UNK TOILETING: Activity did not occur on this shift TOILETING - SCORE: 0-UNK BLADDER MANAGEMENT: Activity did not occur on this shift BLADDER MANAGEMENT - SCORE: 7-IND BOWEL MANAGEMENT: Activity did not occur on this shift BOWEL MANAGEMENT - SCORE: 7-IND TRANSFERS: BED, CHAIR, WHEELCHAIR: TRANSFERS: BED, CHAIR, WHEELCHAIR - STEP 1: Does the patient require assistance of a person or device, or need extra time with bed, chair, or whe elchair transfers? Yes. TRANSFERS: BED, CHAIR, WHEELCHAIR - STEP 2: Does the patient require the assistance of a helper? Yes. TRANSFERS: BED, CHAIR, WHEELCHAIR - STEP 3: How much assistance does the patient require from the helper? Lifting of the legs TRANSFERS: BED, CHAIR, WHEELCHAIR - STEP 4: How many legs does the patient require the helper to lift? both legs TRANSFERS: BED, CHAIR, WHEELCHAIR - SCORE: 3-MOD TRANSFERS: TOILET: Activity did not occur on this shift TRANSFERS: TOILET - SCORE: 0-UNK TRANSFERS: SHOWER: Activity did not occur on this shift TRANSFERS: SHOWER - SCORE: 0-UNK TRANSFERS: TUB: Activity did not occur on this shift TRANSFERS: TUB - SCORE: 0-UNK LOCOMOTION: WALK: LOCOMOTION: WALK - STEP 1: Does the patient need help from a person or device, or need extra time to walk 150 feet? Yes. LOCOMOTION: WALK - STEP 2: How much assistance does the patient require to walk a minimum of 150 feet? Only incidental help such as contact guarding or steadying LOCOMOTION: WALK - SCORE: 4-MIN LOCOMOTION: WHEELCHAIR: LOCOMOTION: WHEELCHAIR - STEP 1: Does the patient need help to go 150 feet in a wheelchair? Yes. LOCOMOTION: WHEELCHAIR - STEP 2: How much assistance does the patient need from the helper? Patient goes less than 150 feet - but more than 50 feet - with the assistance of only one helper LOCOMOTION: WHEELCHAIR - SCORE: 2-MAX LOCOMOTION: STAIRS: Activity did not occur on this shift LOCOMOTION: STAIRS - SCORE: 0-UNK COMPREHENSION: COMPREHENSION - SCORE: 0-UNK EXPRESSION EXPRESSION - SCORE: 0-UNK SOCIAL INTERACTION: SOCIAL INTERACTION - SCORE: 0-UNK PROBLEM SOLVING: PROBLEM SOLVING - SCORE: 0-UNK MEMORY: MEMORY - SCORE: 0-UNK SIGNATURE PANEL: The following modified sections: Transfers: Bed, Chair, Wheelchair - Score, Transfers: Toilet - Score , Locomotion: Walk - Score, Locomotion: Wheelchair - Score, Locomotion: Stairs - Score were [electron asael] signed by Elie Anthony PTA on FriMar 24 2018 14:49:35 GMT-0600 (Central Standard Time)
[2018-03-24] MEDS: ENOXAPARIN 40 MG/0.4 ML SQ SCH (17:09)
--- NOTE | 2018-03-24 19:41 | PN ---
Subjective: The patient is doing well. The patient continues to be on Flomax, finasteride, and Augm entin for his UTI. He has continued to have bladder training. On March 20, he had a sensation o f 400 cc on 6:30 in the evening. On the , he had sensation at 7 a.m. with 600 cc. On , he h ad sensation of 550 cc at 7:15 a.m., and also at 11:45 a.m. he had a sensation of 250 cc. On the h, he had sensation of 250 and 515. On the , he had sensation of 270. Recommendation: The patient is mostly in bed still, so we will continue bladder training until he is up and ambulating. Hopefully, we can do a voiding trial at that time. FIDELIA/MILENA Voice ID: [id number] Report ID: [id number]
--- NOTE | 2018-03-24 19:44 | R.PN ---
ENCOUNTER DATE AND TIME: 03/24/2018 19:39 (ENGLISH HORN PLAYER) NAME MUNIR CHAO DATE OF : 1935 DATE OF ADMISSION: 03/17/2018 18:37 (ENGLISH HORN PLAYER) Spinal stenosisCHIEF COMPLAINT: Spinal stenosis, S/P decompression SUBJECTIVE: Pt denied any depression. Pt denied any Shortness of Breath. Patient states that pain is under control. Ambulated 142' with contact guard assistance using a rolling walker. Propelled wheelchair 160' with contact guard assistance. Ambulated 500' with standby assistance using a rolling walker. Liver ultrasound, LFTs, nausea and vomiting with meals indicate cholecystitis. GI is following. Will consult Dr. Kylah crawley for possible surgery. VITAL SIGNS Temperature: 98.4 F SBP/DBP: 133/65 Pulse: 108 Resp: 16 Ambulated 230' with minimum assistance using a rolling walker. MEDICATION ALLERGIES: LEVOFLOXACIN INFLUENZA VIRUS VACCINE codeine ENVIRONMENTAL ALLERGIES: - Substance Allergies None Known - Other Allergies None Known NURSING: - Shower allowing shower - Bladder care per protocol - Skin care per protocol ACTIVITIES OOB only with supervision THERAPIES: - Orthotics/Prosthetics Orthotic Evaluation. Splinting/Casting. - Occupational Therapy Evaluate and Treat. - Physical Therapy Evaluate and Treat. PHYSICAL EXAM - Gen Alert and awake Lying in bed No apparent distress Oriented to: person, time, and place - Skin No beakdown No abnormalities - Eyes No abnormalities - ENMT No abnormalities - Neck No abnormalities - CVS RRR - Chest Clear - Abd + bowel sounds - GI nondistended Deferred - Frequent urination due to UTI. - Ext Mild bilateral lower extremity edema. - MSK 4+/5 weakness in both lower extremities. Back muscle spasms. - Neuro 4/5 strength bilaterally lower extremities. - Psych No abnormalities ASSESSMENT: Pt. 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 was independent/mod-I in Self-Care, Sphincter Control, Transfe rs Control, and Locomotion; and he had good Sphincter Control.Currently, he has deficits of Balance, Self-Care, Endurance, Safety Awareness, Transfers Control, Communication, Social Cognition, and Locom otion.Pt. is now referred to [facility] for acute in-patient rehabilitation in order to maximize patient's functional independence in activities of daily living, strength, ROM, an d mobility.- Rehab Goal Patient has realistic goal of being discharged at assistance level 6-Laura to reside at Home with Fam francine/Relatives. MDM/PLAN: - Physical Therapy Gait dysfunction - to improve, our physical therapists will perform initial evaluation of pt's statu s upon admission and devise an individualized program for Gait Training, and Wheel Chair mobility Inability to transfer - to improve, our physical therapists will perform initial evaluation of pt's status upon admission and devise an individualized program for Bed mobility Need for home safety evaluation - to improve, our physical therapists will perform initial evaluatio n of pt's status upon admission and devise an individualized program for Home Evaluation Need in caregiver upon discharge - to improve, our physical therapists will perform initial evaluati on of pt's status upon admission and devise an individualized program for Caregiver Training Edema - to improve, our physical therapists will perform initial evaluation of pt's status upon admi ssion and devise an individualized program for Elevation Training, and Lymphedema Therapy New precaution - to improve, our physical therapists will perform initial evaluation of pt's status upon admission and devise an individualized program for Patient precaution education Poor balance - to improve, our physical therapists will perform initial evaluation of pt's status up on admission and devise an individualized program for Balance Training Poor endurance - to improve, our physical therapists will perform initial evaluation of pt's status upon admission and devise an individualized program for Endurance Training Weakness - to improve, our physical therapists will perform initial evaluation of pt's status upon a dmission and devise an individualized program for Aquatic Therapy, Neuromuscular Reeducation, and Str engthening Achieving independence - to improve, our physical therapists will perform initial evaluation of pt's status upon admission and devise an individualized program for Community Reintegration Activities - Occupational Therapy ADL deficits - to improve, our occupation therapists will perform initial evaluation of pt's status upon admission and devise an individualized program for Bathing, Bed mobility, Community Reintegratio n, Cooking, Dressing, Eating, Fine Motor Skills, Grooming, Homemaking, Kitchen Mobility, Laundry, Pat ient Education, Safety Awareness, Splinting - Positioning, Transfers(Toilet, Tub, Shower), and Wheel Chair Management Cognitive deficits - to improve, our occupation therapists will perform initial evaluation of pt's s tatus upon admission and devise an individualized program for Cognition - orientation Need for manager progressive care - to improve, our occupation therapists will perform initial evaluation of pt's status upon admission and devise an individualized program for Caregiver Training Weakness - to improve, our occupation therapists will perform initial evaluation of pt's status upon admission and devise an individualized program for Aquatic Therapy, Balance, Endurance, UE ROM, and UE strengthening - Diet Type Continue Regular - Diet - Liquid Texture Continue Regular - Tube Feed Continue N/A - Bladder care per protocol - Skin care per protocol - Diet - Solid Texture Continue Regular - Shower allowing shower FUNCTIONAL STATUS: UPDATED AT WEEKLY TEAM CONFERENCE - Bladder Same accident frequency: 7-Ind - No accidents in the past 7 days - Bowel Same accident frequency: 7-Ind - No accidents in the past 7 days - Walking Same score based on distance walked: 2(50-149ft) FUNCTIONAL STATUS: - Self-Care A. Eating sup B. Grooming sup C. Bathing sup D. Dressing - Upper Umesh E. Dressing - Lower modA F. Toileting Ind - Sphincter Control G: Bladder control Dep H: Bowel control Dep - Transfers Control I. Bed/Chair/Wheelchair modA J. Toilet modA K. Tub/Shower modA - Locomotion L. Walk/Wheelchair (B) modA M. Stairs ADNO - Communication N. Comprehension (B) modA O. Expression (B) sup - Social Cognition P. Social Interaction sup Q. Problem Solving Umesh R. Memory Umesh - Endurance Fair - Balance Poor - Safety Awareness Poor CURRENT FUNC. DEFICITS: Balance, Self-Care, Endurance, Safety Awareness, Transfers Control, Communication, Social Cognition, and Locomotion SIGNATURE PANEL: (ENGLISH HORN PLAYER)
[2018-03-24] MEDS: ATORVASTATIN 40 MG TAB PO SCH (20:29)
[2018-03-25] MEDS: HYDROCODONE/APAP 5/325 MG TAB PO PRN (00:41)
--- NOTE | 2018-03-25 01:04 | FAST ---
SHIFT START DATE/TIME: 03/24/2018 19:00 (HAND THERMAL CUTTER) SHIFT END DATE/TIME: 03/25/2018 07:00 (HAND THERMAL CUTTER) NAME MUNIR CHAO DATE OF : 1935 DATE OF ADMISSION: 03/17/2018 18:37 (HAND THERMAL CUTTER) PHONE: AGE: 82 SSN# [id number] GENDER: Male ENCOUNTER PHYSICIAN: Dr. Bear Sousa M.D. 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 EATING: Activity did not occur on this shift EATING - SCORE: 0-UNK GROOMING: Activity did not occur on this shift GROOMING - SCORE: 0-UNK BATHING: Activity did not occur on this shift BATHING - SCORE: 0-UNK DRESSING - UPPER BODY: Patient is not dressing in public clothing ARTICLES SCORE Total number of steps: 0 DRESSING - UPPER BODY - SCORE: 0-UNK DRESSING - LOWER BODY: Patient is not dressing in public clothing ARTICLES SCORE Total number of steps: 0 DRESSING - LOWER BODY - SCORE: 0-UNK TOILETING: Activity did not occur on this shift TOILETING - SCORE: 0-UNK BLADDER MANAGEMENT: [place] cares for lr catheter including emptying drainage bag. BLADDER MANAGEMENT - SCORE: 1-DEP BOWEL MANAGEMENT: Activity did not occur on this shift BOWEL MANAGEMENT - SCORE: 7-IND TRANSFERS: BED, CHAIR, WHEELCHAIR: TRANSFERS: BED, CHAIR, WHEELCHAIR - STEP 1: Does the patient require assistance of a person or device, or need extra time with bed, chair, or whe elchair transfers? Yes. TRANSFERS: BED, CHAIR, WHEELCHAIR - STEP 2: Does the patient require the assistance of a helper? Yes. TRANSFERS: BED, CHAIR, WHEELCHAIR - STEP 3: How much assistance does the patient require from the helper? Lifting of the patient TRANSFERS: BED, CHAIR, WHEELCHAIR - STEP 4: Does the helper lift the patient ONLY up? ONLY down? Up AND Down? Up AND Down. TRANSFERS: BED, CHAIR, WHEELCHAIR - SCORE: 2-MAX TRANSFERS: TOILET: Activity did not occur on this shift TRANSFERS: TOILET - SCORE: 0-UNK TRANSFERS: SHOWER: Activity did not occur on this shift TRANSFERS: SHOWER - SCORE: 0-UNK TRANSFERS: TUB: Activity did not occur on this shift TRANSFERS: TUB - SCORE: 0-UNK LOCOMOTION: WALK: Activity did not occur on this shift LOCOMOTION: WALK - SCORE: 0-UNK LOCOMOTION: WHEELCHAIR: Activity did not occur on this shift LOCOMOTION: WHEELCHAIR - SCORE: 0-UNK COMPREHENSION: COMPREHENSION: TYPE: Both COMPREHENSION - STEP 1: Does the patient require help from a person or device, or need extra time to understand complex and a bstract ideas (such as current events, finances, discharge planning, medical issues, relationships, e tc)? Yes. COMPREHENSION - STEP 2: Does the patient require help to understand questions or statements about basic needs or ideas (such as hunger, thirst, sleep, safety, daily schedule, room location, or discomfort) half or more of the t mattie? Yes. COMPREHENSION - STEP 3: Is the patient basically able to understand and respond appropriately and consistently? Yes. COMPREHENSION - SCORE: 2-MAX EXPRESSION EXPRESSION: TYPE: Both EXPRESSION - STEP 1: Does the patient require help from a person or device, or need extra time expressing complex and abst ract ideas (such as current events, finances, discharge planning, medical issues, relationships, etc) ? Yes. EXPRESSION - STEP 2: Does the patient require help to express basic necessities or ideas (such as hunger, thirst, sleep, s afety, daily schedule, room location, or discomfort) half or more of the time? Yes. EXPRESSION - STEP 3: Is the patient basically unable to express or does s/he express inappropriately or inconsistently bin pite prompting? No. EXPRESSION - SCORE: 2-MAX SOCIAL INTERACTION: SOCIAL INTERACTION - STEP 1: Does the patient require a helper to interact with others in social and therapeutic situations? No. SOCIAL INTERACTION - STEP 2: Does the patient need extra time in social situations, OR does s/he interact with staff, other patien ts, and family members ONLY in structured environments, OR does s/he require medication for social in teraction? Yes, patient needs extra time SOCIAL INTERACTION - SCORE: 6-GARRY PROBLEM SOLVING: PROBLEM SOLVING - STEP 1: Does the patient need help from a person or device, or need extra time to solve complex problems such as managing a checking account or confronting interpersonal problems? Yes. PROBLEM SOLVING - STEP 2: Does the patient solve basic routine problems half or more of the time? Yes. PROBLEM SOLVING - STEP 3: How often does the patient need help to solve basic routine problems? 25%-49% of the time PROBLEM SOLVING - SCORE: 3-MOD MEMORY: MEMORY - STEP 1: Does the patient need help from a person or device, or need extra time to remember frequently encount ered people, daily routines, and executing requests? Yes. MEMORY - STEP 2: How often does the patient need help to remember frequently encountered people, daily routines, and e xecuting requests? 25% - 49% of the time MEMORY - SCORE: 3-MOD SIGNATURE PANEL: The following modified sections: Eating - Score, Grooming - Score, Dressing - Upper Body - Score, Alcides ssing - Lower Body - Score, Toileting - Score, Bladder Management - Score, Bowel Management - Score, Transfers: Bed, Chair, Wheelchair - Score, Transfers: Toilet - Score, Transfers: Shower - Score, Bustillo sfers: Tub - Score, Locomotion: Walk - Score, Locomotion: Wheelchair - Score, Comprehension - Score, Expression - Score, Social Interaction - Score, Problem Solving - Score, Memory - Score were [electro nically] signed by Belén Sorto CNA on FriMar 25 2018 01:02:48 GMT-0600 (Central Standard Time)
[2018-03-25] MEDS: IPRATROPIUM BROM 0.5MG/2.5ML IH SCH ×4 (02:55→20:30)
[2018-03-25] MEDS: ALBUTEROL 2.5 MG/3 ML NEB SOL NEB SCH ×4 (02:55→20:30)
[2018-03-25 06:59] LABS: Albumin 2.1 g/dL (3.4-5.0); Bilirubin Direct 0.2 mg/dL (0-0.2); Bilirubin Total 0.5 mg/dL (0.2-1.0)
[2018-03-25] MEDS: PROMOD 30 ML DOSE PO SCH ×2 (08:00→21:00)
[2018-03-25] MEDS: DUTASTERIDE 0.5 MG CAPSULE PO SCH (08:48)
[2018-03-25] MEDS: VITAMIN D 1000 UNIT TAB PO SCH (08:49)
[2018-03-25] MEDS: SODIUM CHLORIDE 1 GM TAB PO SCH ×2 (08:49→17:32)
[2018-03-25] MEDS: LIDOCAINE 5% PATCH TOP SCH (08:49)
[2018-03-25] MEDS: METHOCARBAMOL 500 MG TAB PO PRN (08:49)
[2018-03-25] MEDS: GABAPENTIN 400 MG CAP PO SCH ×3 (08:49→21:00)
[2018-03-25] MEDS: CLOPIDOGREL 75 MG TABLET PO SCH (08:49)
[2018-03-25] MEDS: ASPIRIN EC 81 MG TAB PO SCH (08:50)
[2018-03-25] MEDS: BISACODYL E.C. 5 MG TAB PO PRN (08:50)
[2018-03-25] MEDS: TRAMADOL HCL 50 MG TAB PO PRN ×2 (08:50→17:32)
[2018-03-25] MEDS: GUAIFENESIN 600 MG SA TAB PO SCH ×2 (08:50→21:00)
[2018-03-25] MEDS: PANTOPRAZOLE 40MG TABLET PO SCH (08:50)
[2018-03-25] MEDS: MAGNESIUM OXIDE 400 MG TAB PO SCH (08:50)
[2018-03-25] MEDS: TAMSULOSIN 0.4 MG SR CAP PO SCH (08:50)
--- NOTE | 2018-03-25 16:10 | FAST ---
ENCOUNTER DATE AND TIME: 03/25/2018 08:00 (BILLER) NAME MUNIR CHAO DATE OF : 1935 DATE OF ADMISSION: 03/17/2018 18:37 (BILLER) PHONE: AGE: 82 SSN# [id number] GENDER: Male ENCOUNTER PHYSICIAN: Dr. Bear Sousa M.D. 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 EATING: Activity did not occur on this shift EATING - SCORE: 0-UNK GROOMING: Wash, rinse, and dry face Wash, rinse, and dry hands GROOMING - STEP 1: Does the patient require the assistance of a person or device, or need extra time when grooming? Yes. GROOMING - STEP 2: Does the patient require the assistance of a helper? Yes. GROOMING - STEP 3: How much assistance does the patient require from the helper? Cuing, coaxing, instructions, or encour agement for completion of grooming GROOMING - SCORE: 5-SUP BATHING: Abdomen Buttocks Chest Left arm Left lower leg and foot Left upper leg Perineal area Right arm Right lower leg and foot Right upper leg BATHING - STEP 1: Does the patient require the assistance of a person or device, or need extra time when bathing? Yes. BATHING - STEP 2: Does the patient require the assistance of a helper? Yes. BATHING - STEP 3: How much assistance does the patient require from the helper? Only incidental help such as placement of a wash cloth in his/her hand a few times as s/he bathes OR help to bathe just one or two areas of the body BATHING - SCORE: 4-MIN DRESSING - UPPER BODY: T-shirt/pullover shirt (four steps) ARTICLES SCORE Total number of steps: 4 DRESSING - UPPER BODY - STEP 1: Does the patient require help from a person or device, or need extra time when dressing above the tomas st? Yes. DRESSING - UPPER BODY - STEP 2: Does the patient require the assistance of a helper? Yes. DRESSING - UPPER BODY - STEP 3: Does the helper touch the patient while dressing? Yes. DRESSING - UPPER BODY - STEP 4: How many of the total steps does the patient complete on his/her own? 2 DRESSING - UPPER BODY - SCORE: 3-MOD DRESSING - LOWER BODY: Elastic waist pants (three steps) Sock - Left foot (one step) Sock - Right foot (one step) Underwear (three steps) ARTICLES SCORE Total number of steps: 8 DRESSING - LOWER BODY - STEP 1: Does the patient require help from a person or device, or need extra time when dressing below the tomas st? Yes. DRESSING - LOWER BODY - STEP 2: Does the patient require the assistance of a helper? Yes. DRESSING - LOWER BODY - STEP 3: Does the helper touch the patient while dressing? Yes. DRESSING - LOWER BODY - STEP 4: How many of the total steps does the patient complete on his/her own? 1 DRESSING - LOWER BODY - STEP 5: Does patient require total assistance for dressing below the waist such as the helper holding clothin g and performing basically all the activities? No. DRESSING - LOWER BODY - SCORE: 2-MAX TOILETING: TOILETING - STEP 1: Does the patient require the assistance of a person or device, or need extra time with toileting? Yes . TOILETING - STEP 2: Does the patient require the assistance of a helper? Yes. TOILETING - STEP 3: How much assistance does the patient require from the helper? Hands-on assistance from the helper TOILETING - STEP 4: Of the 3 tasks: 1) Adjusting clothing prior to use, 2) Cleansing of perineal area, 3) Adjusting clot blake after use; How many tasks does the patient perform WITHOUT assistance of the helper? Two tasks TOILETING - SCORE: 3-MOD BLADDER MANAGEMENT: Activity did not occur on this shift BLADDER MANAGEMENT - SCORE: 7-IND BOWEL MANAGEMENT: Activity did not occur on this shift BOWEL MANAGEMENT - SCORE: 7-IND TRANSFERS: BED, CHAIR, WHEELCHAIR: Activity did not occur on this shift TRANSFERS: BED, CHAIR, WHEELCHAIR - SCORE: 0-UNK TRANSFERS: TOILET: TRANSFERS: TOILET - STEP 1: Does the patient require the assistance of a person or device, or need extra time with toilet transfe rs? Yes. TRANSFERS: TOILET - STEP 2: Does the patient require the assistance of a helper? Yes. TRANSFERS: TOILET - STEP 3: How much assistance does the patient require from the helper? Patient performs half or more of the tr ansferring tasks TRANSFERS: TOILET - STEP 4: Does the patient need only incidental help such as contact guard or steadying during toilet transfer? No. Patient needs more than incidental help TRANSFERS: TOILET - SCORE: 3-MOD TRANSFERS: SHOWER: Activity did not occur on this shift TRANSFERS: SHOWER - SCORE: 0-UNK TRANSFERS: TUB: TRANSFERS: TUB - STEP 1: Does the patient require the assistance of a person or device, or need extra time with tub transfers? Yes. TRANSFERS: TUB - STEP 2: Does the patient require the assistance of a helper? Yes. TRANSFERS: TUB - STEP 3: How much assistance does the patient require from the helper? More than incidental help TRANSFERS: TUB - STEP 4: How much more help does the patient require from the helper? [place] lifts patient up out of the wheel chair AND down onto the tub bench TRANSFERS: TUB - SCORE: 2-MAX LOCOMOTION: WALK: Activity did not occur on this shift LOCOMOTION: WALK - SCORE: 0-UNK LOCOMOTION: WHEELCHAIR: Activity did not occur on this shift LOCOMOTION: WHEELCHAIR - SCORE: 0-UNK LOCOMOTION: STAIRS: Activity did not occur on this shift LOCOMOTION: STAIRS - SCORE: 0-UNK COMPREHENSION: COMPREHENSION: TYPE: Visual COMPREHENSION - STEP 1: Does the patient require help from a person or device, or need extra time to understand complex and a bstract ideas (such as current events, finances, discharge planning, medical issues, relationships, e tc)? Yes. COMPREHENSION - STEP 2: Does the patient require help to understand questions or statements about basic needs or ideas (such as hunger, thirst, sleep, safety, daily schedule, room location, or discomfort) half or more of the t mattie? No. COMPREHENSION - STEP 3: How often does the patient need help to understand directions and conversation about basic needs? 25% - 49% of the time COMPREHENSION - SCORE: 3-MOD EXPRESSION EXPRESSION: TYPE: Non-Vocal EXPRESSION - STEP 1: Does the patient require help from a person or device, or need extra time expressing complex and abst ract ideas (such as current events, finances, discharge planning, medical issues, relationships, etc) ? No. EXPRESSION - STEP 2: Does the patient need extra time, require an assistive device (such as augmentive communication syste m or a communication board), OR does s/he have mild difficulty expressing complex and abstract ideas (including mild dysarthria or mild word-find problems)? No. EXPRESSION - SCORE: 7-IND SOCIAL INTERACTION: SOCIAL INTERACTION - STEP 1: Does the patient require a helper to interact with others in social and therapeutic situations? No. SOCIAL INTERACTION - STEP 2: Does the patient need extra time in social situations, OR does s/he interact with staff, other patien ts, and family members ONLY in structured environments, OR does s/he require medication for social in teraction? No. SOCIAL INTERACTION - SCORE: 7-IND PROBLEM SOLVING: PROBLEM SOLVING - STEP 1: Does the patient need help from a person or device, or need extra time to solve complex problems such as managing a checking account or confronting interpersonal problems? Yes. PROBLEM SOLVING - STEP 2: Does the patient solve basic routine problems half or more of the time? Yes. PROBLEM SOLVING - STEP 3: How often does the patient need help to solve basic routine problems? 10%-24% of the time PROBLEM SOLVING - SCORE: 4-MIN MEMORY: MEMORY - STEP 1: Does the patient need help from a person or device, or need extra time to remember frequently encount ered people, daily routines, and executing requests? Yes. MEMORY - STEP 2: How often does the patient need help to remember frequently encountered people, daily routines, and e xecuting requests? 10% - 24% of the time MEMORY - SCORE: 4-MIN SIGNATURE PANEL: The following modified sections: Eating - Score, Grooming - Score, Bathing - Score, Dressing - Upper Body - Score, Dressing - Lower Body - Score, Toileting - Score, Transfers: Bed, Chair, Wheelchair - S core, Transfers: Toilet - Score, Transfers: Shower - Score, Transfers: Tub - Score, Comprehension - S core, Expression - Score, Social Interaction - Score, Problem Solving - Score, Memory - Score were [e lectronically] signed by VALARIE Golden on FriMar 25 2018 16:09:52 T-0600 ([facility])
--- NOTE | 2018-03-25 16:35 | PN ---
Subjective: Patient is currently not drinking too much oral, therefore his urinary output is poor. Objective: Urine output is only 120-180 every 6 hours with the clamping. No sensation. Of course, the volume is so low. Assessment: Urinary retention status post laminectomy. Plan: To continue therapy and rehab. The patient is to be up and ambulating soon. We will continue bladder training and as far as his is concerned, no more signs of any UTI, and so antibiotic should be already stopped soon. FIDELIA/MILENA Voice ID: [id number] Report ID: [id number]
[2018-03-25] MEDS: CEFOXITIN/SWI 1gm 1 GM/10 ML SYR IVP SCH (17:32)
[2018-03-25] MEDS: ENOXAPARIN 40 MG/0.4 ML SQ SCH (17:32)
[2018-03-25] MEDS ORDERED: CEFOXITIN SODIUM 1 GM/VIAL IVPB SCH (18:00)
--- NOTE | 2018-03-25 19:11 | CON ---
Date of Consultation: 03/23/2018 Additional Consulting Physician: Ray Aponte MD Reason For Consultation: Elevated liver enzymes. History Of Present Illness: The patient is an 82-year-old gentleman who was initially admitted on and was transferred from [facility]. He has the diagnosis of spinal stenosis, had laminecto my, and was transferred to Rehab. While in the hospital, it has been observed his liver enzymes are elevated, especially from the time of admission, and therefore, GI consultation has been requested. The patient also has had 3 years of on and off confusion. When I saw the patient, he seemed to be al ert and oriented x2. There is a history of abdominal pain and occasional nausea and vomiting, especi ally after eating, but unclear if this is even medication related. Past Medical History: Arthritis, history of chronic back pain, history of Guillain-[place], hearing deficit, dyslipidemia, history of pneumonia, coronary artery disease, and history of CVA. Past Surgical History: He has had bronchoscopy in the past, eye surgery, spinal surgery, and neck gallagher rgery as well, as well as cardiac stents. Past Medications: As in the chart. Social History: Denies and no reported toxic habits in the chart that is recurrent. Family History: Noncontributory. Review of Systems: GI: As in HPI. Neurological: As in HPI. Otherwise, negative. Remainder of 10-point review of systems is negative. Physical Examination: Vitals reviewed. He is afebrile, not tachycardic, not tachypneic, normotensive. Laboratory Data: Reviewed. He did have increased leukocytosis on admission which has improved to 11 .7. Chemistry panel revealed only mild transaminitis on March 21, but increased to 179, 157. To cely bilirubin is normal. Today, his AST and ALT are 193 and 184, alkaline phosphatase 252. Hepatiti s viral serology has been requested, it is still in the lab. We do not have any imaging of the abdom en as yet. Impression: An 82-year-old gentleman with recent hospitalizations and transferred for rehab with lawrence vation of liver enzymes. No prior history of liver disease. The differential in this case could be broad, primary hepatocellular disease is a possibility as well as biliary tract, gallbladder etiologi es due to the symptoms, also medication-related elevation of liver enzymes is possible. Plan: I will order autoimmune numerous markers as well as markers for excess iron and copper levels. We will also get an abdominal ultrasound including gallbladder. Based on the results of above, we will decide further plan of care. US/MODL Voice ID: [id number] Report ID: [id number]
--- NOTE | 2018-03-25 19:48 | CON ---
Date of Consultation: 03/25/2018 Reason For Consultation: Gallstones. History Of Present Illness: The patient is an 82-year-old gentleman with multiple medical problems, who underwent a back surgery with screw placement approximately 2 weeks ago. After surgery, was vera sferred over here from [place] and was to undergo rehabilitation therapy and physical therapy. He was doing well up until a couple of days ago when he started having postprandial nausea, vomiting and pain in the epigastrium and right upper quadrant of abdomen. He has had this kind of pain off and o n for quite some time. He is awake, somewhat confused. Review of Systems: Negative for any blood in his stool. No dysuria or hematuria. No sore throat, runny nose, cough, he adaches, or dizziness. No chest pain. Review of systems is otherwise unremarkable. Past Medical History: Significant for spinal stenosis, status post 2 spinal surgeries, the last one being 2 weeks ago, back pain, history of Guillain-[place], hyperlipidemia, pneumonia, history of champion ry arteries, benign prostatic hypertrophy and history of stroke. Past Surgical History: Prostate surgery, eye surgery, bronchoscopy, lumbar surgery, mediastinoscopy, neck surgery, heart stents and tonsillectomy. Allergies: LEVAQUIN, CODEINE, AND FLU VIRUS. Social History: The patient currently does not smoke or drink. Family History: Noncontributory. Physical Examination: Vital Signs: Stable. He is afebrile. He is awake, alert, and confused. Head and Neck: No evidence of any significant icterus that I can tell. Cranial nerves 2 through 12 grossly within normal limit. No neck masses. No JVD. Throat clear. Neck is supple. Chest: Clear. Heart: S1 and S2. Abdomen: Soft, nondistended. Minimal epigastric and right upper quadrant tenderness. No rebound, r igidity, or guarding. Extremities: Adequately perfused. Nontender. Neuro: Nonfocal. Diagnostic Data: White count is 11.7 from 3 days ago. Chemistry shows elevated AST and ALT. Total bilirubin, indirect bilirubin are normal. Alkaline phosphatase is elevated over 200. Albumin is 2.9 . Procalcitonin couple days ago was 0.57. He had a liver ultrasound, which showed liver increased e chotexture, borderline enlarged, gallstones are noted. Assessment: Likely chronic cholecystitis and cholelithiasis with elevated liver function tests, rule out common bile duct stones. Recommendations: Discussed the case in detail with Dr. Sousa and Dr. Aponte. As the patient re cently had back surgery with hardware placed, he is not a good candidate for MRCP. I spoke with the radiologist, he said at least 6 weeks should go by prior to doing any MRI on the patient like this. He needs to be on antibiotics, which I will start and he also needs an ERCP, which I discussed with Guadalupe Aponte, he does not do them. We will try to get in touch with Dr. Forrester and if he cannot do it , then the patient may need to be transferred to a tertiary care facility. We will follow his blood work and do serial exams on the patient while in the hospital. Plan of care discussed in detail with the . MARILYN/MILENA Voice ID: [id number] Report ID: [id number]
[2018-03-25] MEDS: ATORVASTATIN 40 MG TAB PO SCH (21:00)
[2018-03-25] MEDS: ENSURE ENLIVE 237 ML CAN PO SCH (21:00)
[2018-03-26] MEDS: CEFOXITIN/SWI 1gm 1 GM/10 ML SYR IVP SCH ×4 (00:21→16:49)
[2018-03-26] MEDS: TRAMADOL HCL 50 MG TAB PO PRN ×2 (00:31→09:22)
[2018-03-26] MEDS: IPRATROPIUM BROM 0.5MG/2.5ML IH SCH ×3 (01:50→14:20)
[2018-03-26] MEDS: ALBUTEROL 2.5 MG/3 ML NEB SOL NEB SCH ×3 (01:50→14:20)
--- NOTE | 2018-03-26 02:09 | FAST ---
SHIFT START DATE/TIME: 03/25/2018 19:00 ([employer]) SHIFT END DATE/TIME: 03/26/2018 07:00 ([employer]) NAME MUNIR CHAO DATE OF : 1935 DATE OF ADMISSION: 03/17/2018 18:37 (WO[employer]ISHER) PHONE: AGE: 82 SSN# [id number] GENDER: Male ENCOUNTER PHYSICIAN: Dr. Bear Sousa M.D. 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 EATING: Activity did not occur on this shift EATING - SCORE: 0-UNK GROOMING: Activity did not occur on this shift GROOMING - SCORE: 0-UNK BATHING: Activity did not occur on this shift BATHING - SCORE: 0-UNK DRESSING - UPPER BODY: Activity did not occur on this shift ARTICLES SCORE Total number of steps: 0 DRESSING - UPPER BODY - SCORE: 0-UNK DRESSING - LOWER BODY: Activity did not occur on this shift ARTICLES SCORE Total number of steps: 0 DRESSING - LOWER BODY - SCORE: 0-UNK TOILETING: Activity did not occur on this shift TOILETING - SCORE: 0-UNK BLADDER MANAGEMENT: [place] cares for rl catheter including emptying drainage bag. BLADDER MANAGEMENT - SCORE: 1-DEP BOWEL MANAGEMENT: Activity did not occur on this shift BOWEL MANAGEMENT - SCORE: 7-IND TRANSFERS: BED, CHAIR, WHEELCHAIR: Activity did not occur on this shift TRANSFERS: BED, CHAIR, WHEELCHAIR - SCORE: 0-UNK TRANSFERS: TOILET: Activity did not occur on this shift TRANSFERS: TOILET - SCORE: 0-UNK TRANSFERS: SHOWER: Activity did not occur on this shift TRANSFERS: SHOWER - SCORE: 0-UNK TRANSFERS: TUB: Activity did not occur on this shift TRANSFERS: TUB - SCORE: 0-UNK LOCOMOTION: WALK: Activity did not occur on this shift LOCOMOTION: WALK - SCORE: 0-UNK LOCOMOTION: WHEELCHAIR: Activity did not occur on this shift LOCOMOTION: WHEELCHAIR - SCORE: 0-UNK COMPREHENSION: COMPREHENSION: TYPE: Both COMPREHENSION - STEP 1: Does the patient require help from a person or device, or need extra time to understand complex and a bstract ideas (such as current events, finances, discharge planning, medical issues, relationships, e tc)? Yes. COMPREHENSION - STEP 2: Does the patient require help to understand questions or statements about basic needs or ideas (such as hunger, thirst, sleep, safety, daily schedule, room location, or discomfort) half or more of the t mattie? No. COMPREHENSION - STEP 3: How often does the patient need help to understand directions and conversation about basic needs? 10% - 24% of the time COMPREHENSION - SCORE: 4-MIN EXPRESSION EXPRESSION: TYPE: Both EXPRESSION - STEP 1: Does the patient require help from a person or device, or need extra time expressing complex and abst ract ideas (such as current events, finances, discharge planning, medical issues, relationships, etc) ? Yes. EXPRESSION - STEP 2: Does the patient require help to express basic necessities or ideas (such as hunger, thirst, sleep, s afety, daily schedule, room location, or discomfort) half or more of the time? Yes. EXPRESSION - STEP 3: Is the patient basically unable to express or does s/he express inappropriately or inconsistently bin pite prompting? No. EXPRESSION - SCORE: 2-MAX SOCIAL INTERACTION: SOCIAL INTERACTION - STEP 1: Does the patient require a helper to interact with others in social and therapeutic situations? No. SOCIAL INTERACTION - STEP 2: Does the patient need extra time in social situations, OR does s/he interact with staff, other patien ts, and family members ONLY in structured environments, OR does s/he require medication for social in teraction? Yes, patient needs extra time SOCIAL INTERACTION - SCORE: 6-GARRY PROBLEM SOLVING: Patient requires bed/chair alarms due to attempts to get up unassisted when helper is needed. PROBLEM SOLVING - STEP 1: How often do the bed/chair alarms go off? Occasionally - the alarms go off about 25% or less PROBLEM SOLVING - SCORE: 4-MIN MEMORY: MEMORY - STEP 1: How often do the bed/chair alarms go off? Occasionally - the alarms go off about 25% of the time or l ess MEMORY - SCORE: 4-MIN SIGNATURE PANEL: The following modified sections: Eating - Score, Grooming - Score, Bathing - Score, Dressing - Lower Body - Score, Dressing - Upper Body - Score, Toileting - Score, Bladder Management - Score, Bowel Man agement - Score, Transfers: Bed, Chair, Wheelchair - Score, Transfers: Toilet - Score, Transfers: Tova wer - Score, Transfers: Tub - Score, Locomotion: Walk - Score, Locomotion: Wheelchair - Score, Compre hension - Score, Expression - Score, Social Interaction - Score, Problem Solving - Score, Memory - Sc ore were [electronically] signed by Talya Lane CNA on FriMar 26 2018 02:08:13 T-0600 ([facility])
[2018-03-26] MEDS: HYDROCODONE/APAP 5/325 MG TAB PO PRN ×2 (04:51→15:52)
[2018-03-26 06:05] LABS: Absolute Lymphocytes (CBC) 1.1 K/uL (0.7-4.9); Absolute Monocytes 1.2 K/uL (0.1-1.3); Absolute Neutrophil 7.7 K/uL (1.8-8.0); Basophils % 0.5 % (0-1.3); Eosinophils % 0.7 % (0-4.4); Lymphocytes % 10.9 % (15.3-44.8); MPV 8.1 fL (7.6-11.3); Monocytes % 12.1 % (3.3-12.3); RBC Red Blood Cell Count 3.18 M/uL (4.33-5.43)
[2018-03-26 06:19] LABS: Albumin 2.1 g/dL (3.4-5.0); Magnesium 1.9 mg/dL (1.8-2.4); Potassium 3.8 mmol/L (3.5-5.1); Prealbumin 9.3 mg/dL (20-40)
[2018-03-26] MEDS: DUTASTERIDE 0.5 MG CAPSULE PO SCH (08:00)
[2018-03-26] MEDS: PROMOD 30 ML DOSE PO SCH (08:00)
[2018-03-26] MEDS: GUAIFENESIN 600 MG SA TAB PO SCH (08:00)
[2018-03-26] MEDS: ENSURE ENLIVE 237 ML CAN PO SCH (08:00)
[2018-03-26] MEDS: SODIUM CHLORIDE 1 GM TAB PO SCH (09:11)
[2018-03-26] MEDS: LIDOCAINE 5% PATCH TOP SCH (09:11)
[2018-03-26] MEDS: MAGNESIUM OXIDE 400 MG TAB PO SCH (09:11)
[2018-03-26] MEDS: GABAPENTIN 400 MG CAP PO SCH ×2 (09:12→14:44)
[2018-03-26] MEDS: TAMSULOSIN 0.4 MG SR CAP PO SCH (09:16)
[2018-03-26] MEDS: PANTOPRAZOLE 40MG TABLET PO SCH (09:17)
[2018-03-26] MEDS: VITAMIN D 1000 UNIT TAB PO SCH (09:17)
[2018-03-26 10:12] VITALS: BP 121/57; TEMP 98.4
[2018-03-26 10:54] VITALS: O2SAT 95
[2018-03-26 13:37] LABS: HBsAG Nonreactive (Nonreactive); Hepatitis A IgM Antibody Nonreactive
[2018-03-26] MEDS ORDERED: NA CHLORIDE 0.9% 1,000 ML IV SCH (15:00)
--- NOTE | 2018-03-26 15:03 | FAST ---
SHIFT START DATE/TIME: 03/25/2018 07:00 (CLIENT ACCOUNT ASSISTANT) SHIFT END DATE/TIME: 03/25/2018 19:00 (CLIENT ACCOUNT ASSISTANT) NAME MUNIR CHAO DATE OF : 1935 DATE OF ADMISSION: 03/17/2018 18:37 (CLIENT ACCOUNT ASSISTANT) PHONE: AGE: 82 SSN# [id number] GENDER: Male ENCOUNTER PHYSICIAN: Dr. Bear Sousa M.D. 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 EATING: EATING - STEP 1: Does the patient require the assistance of a person or device, or need extra time when eating? Yes. EATING - STEP 2: Does the patient require the assistance of a helper? Yes. EATING - STEP 3: Does the patient perform half or more of the eating tasks? Yes. EATING - STEP 4: Does the patient need only supervision, cuing, coaxing OR help to apply an orthosis OR help to cut fo od, open containers, pour liquids, or butter bread? Yes. EATING - SCORE: 5-SUP GROOMING: Activity did not occur on this shift GROOMING - SCORE: 0-UNK BATHING: Activity did not occur on this shift BATHING - SCORE: 0-UNK DRESSING - UPPER BODY: Activity did not occur on this shift ARTICLES SCORE Total number of steps: 0 DRESSING - UPPER BODY - SCORE: 0-UNK DRESSING - LOWER BODY: Activity did not occur on this shift ARTICLES SCORE Total number of steps: 0 DRESSING - LOWER BODY - SCORE: 0-UNK TOILETING: TOILETING - STEP 1: Does the patient require the assistance of a person or device, or need extra time with toileting? Yes . TOILETING - STEP 2: Does the patient require the assistance of a helper? Yes. TOILETING - STEP 3: How much assistance does the patient require from the helper? Hands-on assistance from the helper TOILETING - STEP 4: Of the 3 tasks: 1) Adjusting clothing prior to use, 2) Cleansing of perineal area, 3) Adjusting clot blake after use; How many tasks does the patient perform WITHOUT assistance of the helper? No tasks; h elper performs all three tasks TOILETING - SCORE: 1-DEP BLADDER MANAGEMENT: Amasa cares for lr catheter including emptying drainage bag. BLADDER MANAGEMENT - SCORE: 1-DEP BLADDER MANAGEMENT - FREQUENCY OF ACCIDENTS: BLADDER MANAGEMENT(FA) - STEP 1: How many accidents has the patient had during the current shift? 0 BOWEL MANAGEMENT: Activity did not occur on this shift BOWEL MANAGEMENT - SCORE: 7-IND BOWEL MANAGEMENT - FREQUENCY OF ACCIDENTS: BOWEL MANAGEMENT(FA) - STEP 1: How many accidents has the patient had during the current shift? 0 TRANSFERS: BED, CHAIR, WHEELCHAIR: TRANSFERS: BED, CHAIR, WHEELCHAIR - STEP 1: Does the patient require assistance of a person or device, or need extra time with bed, chair, or whe elchair transfers? Yes. TRANSFERS: BED, CHAIR, WHEELCHAIR - STEP 2: Does the patient require the assistance of a helper? Yes. TRANSFERS: BED, CHAIR, WHEELCHAIR - STEP 3: How much assistance does the patient require from the helper? Lifting of the legs TRANSFERS: BED, CHAIR, WHEELCHAIR - STEP 4: How many legs does the patient require the helper to lift? both legs TRANSFERS: BED, CHAIR, WHEELCHAIR - SCORE: 3-MOD TRANSFERS: TOILET: TRANSFERS: TOILET - STEP 1: Does the patient require the assistance of a person or device, or need extra time with toilet transfe rs? Yes. TRANSFERS: TOILET - STEP 2: Does the patient require the assistance of a helper? Yes. TRANSFERS: TOILET - STEP 3: How much assistance does the patient require from the helper? Patient performs half or more of the tr ansferring tasks TRANSFERS: TOILET - STEP 4: Does the patient need only incidental help such as contact guard or steadying during toilet transfer? Yes. TRANSFERS: TOILET - SCORE: 4-MIN TRANSFERS: SHOWER: Activity did not occur on this shift TRANSFERS: SHOWER - SCORE: 0-UNK TRANSFERS: TUB: Activity did not occur on this shift TRANSFERS: TUB - SCORE: 0-UNK LOCOMOTION: WALK: Activity did not occur on this shift LOCOMOTION: WALK - SCORE: 0-UNK LOCOMOTION: WHEELCHAIR: Activity did not occur on this shift LOCOMOTION: WHEELCHAIR - SCORE: 0-UNK COMPREHENSION: COMPREHENSION: TYPE: Both COMPREHENSION - STEP 1: Does the patient require help from a person or device, or need extra time to understand complex and a bstract ideas (such as current events, finances, discharge planning, medical issues, relationships, e tc)? Yes. COMPREHENSION - STEP 2: Does the patient require help to understand questions or statements about basic needs or ideas (such as hunger, thirst, sleep, safety, daily schedule, room location, or discomfort) half or more of the t mattie? Yes. COMPREHENSION - STEP 3: Is the patient basically able to understand and respond appropriately and consistently? No, patient i s basically UNABLE to understand, OR responds inappropriately/inconsistently despite prompting COMPREHENSION - SCORE: 1-DEP EXPRESSION EXPRESSION: TYPE: Both EXPRESSION - STEP 1: Does the patient require help from a person or device, or need extra time expressing complex and abst ract ideas (such as current events, finances, discharge planning, medical issues, relationships, etc) ? Yes. EXPRESSION - STEP 2: Does the patient require help to express basic necessities or ideas (such as hunger, thirst, sleep, s afety, daily schedule, room location, or discomfort) half or more of the time? Yes. EXPRESSION - STEP 3: Is the patient basically unable to express or does s/he express inappropriately or inconsistently bin pite prompting? No. EXPRESSION - SCORE: 2-MAX SOCIAL INTERACTION: SOCIAL INTERACTION - STEP 1: Does the patient require a helper to interact with others in social and therapeutic situations? Yes. SOCIAL INTERACTION - STEP 2: Does the patient interact appropriately half or more of the time? Yes. SOCIAL INTERACTION - STEP 3: How often does the patient need help to interact appropriately? 25-49% of the time SOCIAL INTERACTION - SCORE: 3-MOD PROBLEM SOLVING: PROBLEM SOLVING - SCORE: 0-UNK MEMORY: MEMORY - STEP 1: Does the patient need help from a person or device, or need extra time to remember frequently encount ered people, daily routines, and executing requests? Yes. MEMORY - STEP 2: How often does the patient need help to remember frequently encountered people, daily routines, and e xecuting requests? 25% - 49% of the time MEMORY - SCORE: 3-MOD SIGNATURE PANEL: The following modified sections: Eating - Score, Grooming - Score, Bathing - Score, Dressing - Upper Body - Score, Dressing - Lower Body - Score, Toileting - Score, Bladder Management - Score, Bowel Man agement - Score, Transfers: Bed, Chair, Wheelchair - Score, Transfers: Toilet - Score, Transfers: Tova wer - Score, Transfers: Tub - Score, Locomotion: Walk - Score, Locomotion: Wheelchair - Score, Compre hension - Score, Expression - Score, Memory - Score, Problem Solving - Score, Social Interaction - Sc ore were [electronically] signed by Cyn Patel C.N.A. on FriMar 26 2018 15:03:10 GMT-0600 (Cent[place] Standard Time)
--- NOTE | 2018-03-26 15:31 | FAST ---
ENCOUNTER DATE AND TIME: 03/25/2018 08:00 (GELATIN PLANT SUPERVISOR) NAME MUNIR CHAO DATE OF : 1935 DATE OF ADMISSION: 03/17/2018 18:37 (GELATIN PLANT SUPERVISOR) PHONE: AGE: 82 SSN# [id number] GENDER: Male ENCOUNTER PHYSICIAN: Dr. Bear Sousa M.D. 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 EATING: Activity did not occur on this shift EATING - SCORE: 0-UNK GROOMING: Activity did not occur on this shift GROOMING - SCORE: 0-UNK BATHING: Activity did not occur on this shift BATHING - SCORE: 0-UNK DRESSING - UPPER BODY: Activity did not occur on this shift Patient is not dressing in public clothing ARTICLES SCORE Total number of steps: 0 DRESSING - UPPER BODY - SCORE: 0-UNK DRESSING - LOWER BODY: Activity did not occur on this shift Patient is not dressing in public clothing ARTICLES SCORE Total number of steps: 0 DRESSING - LOWER BODY - SCORE: 0-UNK TOILETING: Activity did not occur on this shift TOILETING - SCORE: 0-UNK BLADDER MANAGEMENT: Activity did not occur on this shift BLADDER MANAGEMENT - SCORE: 7-IND BOWEL MANAGEMENT: Activity did not occur on this shift BOWEL MANAGEMENT - SCORE: 7-IND TRANSFERS: BED, CHAIR, WHEELCHAIR: TRANSFERS: BED, CHAIR, WHEELCHAIR - STEP 1: Does the patient require assistance of a person or device, or need extra time with bed, chair, or whe elchair transfers? Yes. TRANSFERS: BED, CHAIR, WHEELCHAIR - STEP 2: Does the patient require the assistance of a helper? Yes. TRANSFERS: BED, CHAIR, WHEELCHAIR - STEP 3: How much assistance does the patient require from the helper? Steadying/guiding assistance TRANSFERS: BED, CHAIR, WHEELCHAIR - SCORE: 4-MIN TRANSFERS: TOILET: Activity did not occur on this shift TRANSFERS: TOILET - SCORE: 0-UNK TRANSFERS: SHOWER: Activity did not occur on this shift TRANSFERS: SHOWER - SCORE: 0-UNK TRANSFERS: TUB: Activity did not occur on this shift TRANSFERS: TUB - SCORE: 0-UNK LOCOMOTION: WALK: LOCOMOTION: WALK - STEP 1: Does the patient need help from a person or device, or need extra time to walk 150 feet? Yes. LOCOMOTION: WALK - STEP 2: How much assistance does the patient require to walk a minimum of 150 feet? Only incidental help such as contact guarding or steadying LOCOMOTION: WALK - SCORE: 4-MIN LOCOMOTION: WHEELCHAIR: LOCOMOTION: WHEELCHAIR - STEP 1: Does the patient need help to go 150 feet in a wheelchair? Yes. LOCOMOTION: WHEELCHAIR - STEP 2: How much assistance does the patient need from the helper? Patient goes less than 150 feet - but more than 50 feet - with the assistance of only one helper LOCOMOTION: WHEELCHAIR - SCORE: 2-MAX LOCOMOTION: STAIRS: Activity did not occur on this shift LOCOMOTION: STAIRS - SCORE: 0-UNK COMPREHENSION: COMPREHENSION - SCORE: 0-UNK EXPRESSION EXPRESSION - SCORE: 0-UNK SOCIAL INTERACTION: SOCIAL INTERACTION - SCORE: 0-UNK PROBLEM SOLVING: PROBLEM SOLVING - SCORE: 0-UNK MEMORY: MEMORY - SCORE: 0-UNK SIGNATURE PANEL: The following modified sections: Transfers: Bed, Chair, Wheelchair - Score, Transfers: Toilet - Score , Locomotion: Walk - Score, Locomotion: Wheelchair - Score, Locomotion: Stairs - Score were [electron icaleslie] signed by Elie Anthony PTA on FriMar 26 2018 15:30:49 GMT-0600 (Central Standard Time)
--- NOTE | 2018-03-26 15:32 | FAST ---
ENCOUNTER DATE AND TIME: 03/26/2018 08:00 (INVESTIGATOR CASH SHORTAGE) NAME MUNIR CHAO DATE OF : 1935 DATE OF ADMISSION: 03/17/2018 18:37 (INVESTIGATOR CASH SHORTAGE) PHONE: AGE: 82 SSN# [id number] GENDER: Male ENCOUNTER PHYSICIAN: Dr. Bear Sousa M.D. 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 EATING: Activity did not occur on this shift EATING - SCORE: 0-UNK GROOMING: Activity did not occur on this shift GROOMING - SCORE: 0-UNK BATHING: Activity did not occur on this shift BATHING - SCORE: 0-UNK DRESSING - UPPER BODY: Activity did not occur on this shift Patient is not dressing in public clothing ARTICLES SCORE Total number of steps: 0 DRESSING - UPPER BODY - SCORE: 0-UNK DRESSING - LOWER BODY: Activity did not occur on this shift Patient is not dressing in public clothing ARTICLES SCORE Total number of steps: 0 DRESSING - LOWER BODY - SCORE: 0-UNK TOILETING: Activity did not occur on this shift TOILETING - SCORE: 0-UNK BLADDER MANAGEMENT: Activity did not occur on this shift BLADDER MANAGEMENT - SCORE: 7-IND BOWEL MANAGEMENT: Activity did not occur on this shift BOWEL MANAGEMENT - SCORE: 7-IND TRANSFERS: BED, CHAIR, WHEELCHAIR: TRANSFERS: BED, CHAIR, WHEELCHAIR - STEP 1: Does the patient require assistance of a person or device, or need extra time with bed, chair, or whe elchair transfers? Yes. TRANSFERS: BED, CHAIR, WHEELCHAIR - STEP 2: Does the patient require the assistance of a helper? Yes. TRANSFERS: BED, CHAIR, WHEELCHAIR - STEP 3: How much assistance does the patient require from the helper? Lifting of the patient TRANSFERS: BED, CHAIR, WHEELCHAIR - STEP 4: Does the helper lift the patient ONLY up? ONLY down? Up AND Down? Up AND Down. TRANSFERS: BED, CHAIR, WHEELCHAIR - SCORE: 2-MAX TRANSFERS: TOILET: Activity did not occur on this shift TRANSFERS: TOILET - SCORE: 0-UNK TRANSFERS: SHOWER: Activity did not occur on this shift TRANSFERS: SHOWER - SCORE: 0-UNK TRANSFERS: TUB: Activity did not occur on this shift TRANSFERS: TUB - SCORE: 0-UNK LOCOMOTION: WALK: Patient walks less than 50 feet LOCOMOTION: WALK - SCORE: 1-DEP LOCOMOTION: WHEELCHAIR: Patient propels wheelchair less than 50 ft LOCOMOTION: WHEELCHAIR - SCORE: 1-DEP LOCOMOTION: STAIRS: Activity did not occur on this shift LOCOMOTION: STAIRS - SCORE: 0-UNK COMPREHENSION: COMPREHENSION - SCORE: 0-UNK EXPRESSION EXPRESSION - SCORE: 0-UNK SOCIAL INTERACTION: SOCIAL INTERACTION - SCORE: 0-UNK PROBLEM SOLVING: PROBLEM SOLVING - SCORE: 0-UNK MEMORY: MEMORY - SCORE: 0-UNK SIGNATURE PANEL: The following modified sections: Transfers: Bed, Chair, Wheelchair - Score, Transfers: Toilet - Score , Locomotion: Walk - Score, Locomotion: Wheelchair - Score, Locomotion: Stairs - Score were [electron ically] signed by Elie Anthony PTA on FriMar 26 2018 15:31:55 GMT-0600 (Central Standard Time)
[2018-03-26] MEDS: ENOXAPARIN 40 MG/0.4 ML SQ SCH (16:50)
--- NOTE | 2018-03-26 17:14 | R.PN ---
ENCOUNTER DATE AND TIME: 03/26/2018 17:08 (SNORKELLING INSTRUCTOR) NAME MUNIR CHAO DATE OF : 1935 DATE OF ADMISSION: 03/17/2018 18:37 (SNORKELLING INSTRUCTOR) Spinal stenosisCHIEF COMPLAINT: Spinal stenosis, S/P decompression SUBJECTIVE: Pt denied any depression. Pt denied any Shortness of Breath. Patient states that pain is under control. Ambulated 142' with contact guard assistance using a rolling walker. Propelled wheelchair 160' with contact guard assistance. Ambulated 500' with standby assistance using a rolling walker. Liver ultrasound, LFTs, nausea and vomiting with meals indicate cholecystitis. GI is following. Will consult Dr. Kylah crawley for possible surgery. Mr. Chao will be transferred to [facility] for management of acute cholecystitis since GI wo rkup and general surgery are not available. He is medically stable and is able to transfer to [facility]. He is on IV fluids. VITAL SIGNS Temperature: 98.4 F SBP/DBP: 121/57 Pulse: 112 Resp: 16 Ambulated 20' with maximum assistance using a rolling walker. self-propelled wheelchair 60' with maxi mum assistance. MEDICATION ALLERGIES: LEVOFLOXACIN INFLUENZA VIRUS VACCINE codeine ENVIRONMENTAL ALLERGIES: - Substance Allergies None Known - Other Allergies None Known NURSING: - Shower allowing shower - Bladder care per protocol - Skin care per protocol ACTIVITIES OOB only with supervision THERAPIES: - Orthotics/Prosthetics Orthotic Evaluation. Splinting/Casting. - Occupational Therapy Evaluate and Treat. - Physical Therapy Evaluate and Treat. PHYSICAL EXAM - Gen Alert and awake Lying in bed No apparent distress Oriented to: person, time, and place - Skin No beakdown No abnormalities - Eyes No abnormalities - ENMT No abnormalities - Neck No abnormalities - CVS RRR - Chest Clear - Abd + bowel sounds - GI nondistended Deferred - Frequent urination due to UTI. - Ext Mild bilateral lower extremity edema. - MSK 4+/5 weakness in both lower extremities. Back muscle spasms. - Neuro 4/5 strength bilaterally lower extremities. - Psych No abnormalities ASSESSMENT: Pt. is a 82 yo Right-handed white male.On 03/06/[address] 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 was independent/mod-I in Self-Care, Sphincter Control, Transfe rs Control, and Locomotion; and he had good Sphincter Control.Currently, he has deficits of Balance, Self-Care, Endurance, Safety Awareness, Transfers Control, Communication, Social Cognition, and Locom otion.Pt. is now referred to [facility] for acute in-patient rehabilitation in order to maximize patient's functional independence in activities of daily living, strength, ROM, an d mobility.- Rehab Goal Patient has realistic goal of being discharged at assistance level 6-Laura to reside at Home with Fam francine/Relatives. MDM/PLAN: - Physical Therapy Gait dysfunction - to improve, our physical therapists will perform initial evaluation of pt's statu s upon admission and devise an individualized program for Gait Training, and Wheel Chair mobility Inability to transfer - to improve, our physical therapists will perform initial evaluation of pt's status upon admission and devise an individualized program for Bed mobility Need for home safety evaluation - to improve, our physical therapists will perform initial evaluatio n of pt's status upon admission and devise an individualized program for Home Evaluation Need in caregiver upon discharge - to improve, our physical therapists will perform initial evaluati on of pt's status upon admission and devise an individualized program for Caregiver Training Edema - to improve, our physical therapists will perform initial evaluation of pt's status upon admi ssion and devise an individualized program for Elevation Training, and Lymphedema Therapy New precaution - to improve, our physical therapists will perform initial evaluation of pt's status upon admission and devise an individualized program for Patient precaution education Poor balance - to improve, our physical therapists will perform initial evaluation of pt's status up on admission and devise an individualized program for Balance Training Poor endurance - to improve, our physical therapists will perform initial evaluation of pt's status upon admission and devise an individualized program for Endurance Training Weakness - to improve, our physical therapists will perform initial evaluation of pt's status upon a dmission and devise an individualized program for Aquatic Therapy, Neuromuscular Reeducation, and Str engthening Achieving independence - to improve, our physical therapists will perform initial evaluation of pt's status upon admission and devise an individualized program for Community Reintegration Activities - Occupational Therapy ADL deficits - to improve, our occupation therapists will perform initial evaluation of pt's status upon admission and devise an individualized program for Bathing, Bed mobility, Community Reintegratio n, Cooking, Dressing, Eating, Fine Motor Skills, Grooming, Homemaking, Kitchen Mobility, Laundry, Pat ient Education, Safety Awareness, Splinting - Positioning, Transfers(Toilet, Tub, Shower), and Wheel Chair Management Cognitive deficits - to improve, our occupation therapists will perform initial evaluation of pt's s tatus upon admission and devise an individualized program for Cognition - orientation Need for healthcare administrative assistant - to improve, our occupation therapists will perform initial evaluation of pt's status upon admission and devise an individualized program for Caregiver Training Weakness - to improve, our occupation therapists will perform initial evaluation of pt's status upon admission and devise an individualized program for Aquatic Therapy, Balance, Endurance, UE ROM, and UE strengthening - Diet Type Continue Regular - Diet - Liquid Texture Continue Regular - Tube Feed Continue N/A - Bladder care per protocol - Skin care per protocol - Diet - Solid Texture Continue Regular - Shower allowing shower FUNCTIONAL STATUS: UPDATED AT WEEKLY TEAM CONFERENCE - Bladder Same accident frequency: 7-Ind - No accidents in the past 7 days - Bowel Same accident frequency: 7-Ind - No accidents in the past 7 days - Walking Same score based on distance walked: 2(50-149ft) FUNCTIONAL STATUS: - Self-Care A. Eating sup B. Grooming sup C. Bathing sup D. Dressing - Upper Umesh E. Dressing - Lower modA F. Toileting Ind - Sphincter Control G: Bladder control Dep H: Bowel control Dep - Transfers Control I. Bed/Chair/Wheelchair modA J. Toilet modA K. Tub/Shower modA - Locomotion L. Walk/Wheelchair (B) modA M. Stairs ADNO - Communication N. Comprehension (B) modA O. Expression (B) sup - Social Cognition P. Social Interaction sup Q. Problem Solving Umesh R. Memory Umesh - Endurance Fair - Balance Poor - Safety Awareness Poor CURRENT FUNC. DEFICITS: Balance, Self-Care, Endurance, Safety Awareness, Transfers Control, Communication, Social Cognition, and Locomotion SIGNATURE PANEL: ([facility])
--- NOTE | 2018-03-26 18:13 | PN ---
Subjective: The patient has lost appetite. He is having some type of liver issues and will need to be transferred to [facility] for ERCP as there is no ERCP doctors available in the hospital. Laboratory Data: His chemistries showed BUN 28, creatinine 1.2, estimated GFR of 58. His AST is goi ng up from 193 to 283, ALT from 184 to 235, alkaline phosphatase 252 to 214. Plan: I think that he may be obstructed by common duct, so he is going to [place] for ERCP, I believ e at [facility]. As far as his bladder training, we will continue that while he is there. K eep the catheter in. I will definitely leave the catheter in for transportation and while he is unde rgoing his procedure and during his postop recovery time. Maybe when he gets back in a week, we can then do a voiding trial. ELA/MILENA Voice ID: [id number] Report ID: [id number]
--- NOTE | 2018-03-27 15:43 | R.HP ---
FACILITY: [facility] ENCOUNTER DATE AND TIME: 03/18/2018 18:45 (STRATEGIC PLANNING SPECIALIST) MR#: [id number] NAME MUNIR CHAO ADDRESS: [address] [place] [address] CITY: [place]IP [id number] PHONE: DATE OF : 1935 AGE: 82 SSN# [id number] GENDER: Male DEXTERITY Right-handed MARITAL STATUS RACE White PRE-HOSPITAL LIVING SETTING 01 - Home (private home/apt. board/care, assisted living, correction, transitional living) PRE-HOSPITAL LIVING WITH Family/Relatives ENCOUNTER PHYSICIAN: Dr. Bear Sousa M.D. REFERRING DOCTOR: Gil Quiles DATE OF ADMISSION: 03/17/2018 18:37 (STRATEGIC PLANNING SPECIALIST) REFERRING FACILITY [facility] HOME TYPE AND DETAILS: Type of home: single family house # of steps to enter the residence: 0 # of steps within the residence: 0 # of levels in the residence: 1 ADMISSION DIAGNOSIS: Spinal stenosis PRIMARY DIAGNOSIS-RELATED SURGERIES: posterior lumbar fusion with allograft and autograft at L4 through the pelvis and posterior lumbar la minotomy at L4-S1 HISTORY OF PRESENT ILLNESS (HPI): Pt. is a 82 yo Right-handed white male. On 03/06/2019 he was admitted to [facility] with diagnosis Spinal stenosis. 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 Pre-morbidly, Pt. was independent/mod-I in Self-Care, Sphincter Control, Transfers Control, and Locom otion; and he had good Sphincter Control. Currently, he has deficits of Balance, Self-Care, Endurance, Safety Awareness, Transfers Control, Com munication, Social Cognition, and Locomotion. Pt. is now referred to [facility] for acute in-patient rehabilitation in order to maximize patient's functional independence in activities of daily living, strength, ROM, and mobi lity. Patient has realistic goal of being discharged at assistance level 6-Laura to reside at Home with Fam francine/Relatives. MEDICATION ALLERGIES: LEVOFLOXACIN INFLUENZA VIRUS VACCINE codeine ENVIRONMENTAL ALLERGIES: - Substance Allergies None Known - Other Allergies None Known PAST MEDICAL HISTORY: allergic anesthesia arthritis back pain does not excerise falls frequently HEARING DEFICIT hx of guillain-barre syndrome hyperlipidemia pneumonia presence of stent of coronary artery prostate enlargement stroke PAST SURGICAL HISTORY: blepharoplasty bronchoscopy eye surgery fusion, spine, lumbar, interbody, transforaminal approach mediastinoscopy neck surgery (4titanium screws) SHOULDER SURGERY stent 4 heart stents tonsillectomy FAMILY HISTORY: Family history is not contributory. SOCIAL HISTORY: - Home Living Family/Relatives REVIEW OF SYSTEMS: - Gen No Chills Fatigue No Fever - Eyes No Double Vision No itchiness - ENMT No Difficulty Swallowing - CVS No Chest Discomfort No Chest Pain No Fatigue No Weight Gain - Resp No Cough No Shortness of Breath - GI Continent No Abdominal Pain Constipation No Diarrhea - Continent No Kidney Pain Painful Urination No Urinary Urgency - MSK No Joint Pain Muscle Cramps Stiffness - Skin No Itching No Rash No Suspicious Lesions - Neuro Coordination Difficulty No Difficulty with Concentration No Memory Loss No Seizures Weakness - Psych No Anxiety No Depression No HIV Exposure No Persistent Infections No Seasonal Allergies - Endo No Cold/Heat Intolerance No Excessive Hunger No Excessive Thirst No Excessive Urination PHYSICAL EXAM - Gen Alert and awake Lying in bed No apparent distress Oriented to: person, time, and place - Skin No beakdown No abnormalities - Eyes No abnormalities - ENMT No abnormalities - Neck No abnormalities - CVS RRR - Chest Clear - Abd + bowel sounds - GI nondistended Deferred - Frequent urination due to UTI. - Ext Mild bilateral lower extremity edema. - MSK 4+/5 weakness in both lower extremities. Back muscle spasms. - Neuro 4/5 strength bilaterally lower extremities. - Psych No abnormalities VITAL SIGNS Temperature: 98.7 F SBP/DBP: 135/73 Pulse: 75 Resp: 20 NURSING: - Shower allowing shower - Bladder care per protocol - Skin care per protocol ACTIVITIES OOB only with supervision FUNCTIONAL STATUS: - Self-Care A. Eating Ind sup B. Grooming Laura sup C. Bathing Laura sup D. Dressing - Upper Laura Umesh E. Dressing - Lower Laura modA F. Toileting Laura Ind - Sphincter Control G: Bladder control Ind Dep H: Bowel control Ind Dep - Transfers Control I. Bed/Chair/Wheelchair Laura modA J. Toilet Laura modA K. Tub/Shower Laura modA - Locomotion L. Walk/Wheelchair (B) Laura modA M. Stairs sup ADNO - Communication N. Comprehension (B) Umesh modA O. Expression (B) sup sup - Social Cognition P. Social Interaction sup sup Q. Problem Solving sup Umesh R. Memory Umesh Umesh - Endurance Fair - Balance Poor - Safety Awareness Poor CURRENT FUNC. DEFICITS: Balance, Self-Care, Endurance, Safety Awareness, Transfers Control, Communication, Social Cognition, and Locomotion ASSESSMENT: Pt. 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 was independent/mod-I in Self-Care, Sphincter Control, Transfe rs Control, and Locomotion; and he had good Sphincter Control.Currently, he has deficits of Balance, Self-Care, Endurance, Safety Awareness, Transfers Control, Communication, Social Cognition, and Locom otion.Pt. is now referred to [facility] for acute in-patient rehabilitation in order to maximize patient's functional independence in activities of daily living, strength, ROM, an d mobility.- Rehab Goal Patient has realistic goal of being discharged at assistance level 6-Laura to reside at Home with Fam francine/Relatives. REHAB PLAN: - Physical Therapy Gait dysfunction - to improve, our physical therapists will perform initial evaluation of pt's status upon admission and devise an individualized program for Gait Training, and Wheel Chair mobility Inability to transfer - to improve, our physical therapists will perform initial evaluation of pt's s tatus upon admission and devise an individualized program for Bed mobility Need for home safety evaluation - to improve, our physical therapists will perform initial evaluation of pt's status upon admission and devise an individualized program for Home Evaluation Need in caregiver upon discharge - to improve, our physical therapists will perform initial evaluatio n of pt's status upon admission and devise an individualized program for Caregiver Training New precaution - to improve, our physical therapists will perform initial evaluation of pt's status u cesar admission and devise an individualized program for Patient precaution education Edema - to improve, our physical therapists will perform initial evaluation of pt's status upon admi ssion and devise an individualized program for Elevation Training, and Lymphedema Therapy Poor balance - to improve, our physical therapists will perform initial evaluation of pt's status upo n admission and devise an individualized program for Balance Training Poor endurance - to improve, our physical therapists will perform initial evaluation of pt's status u cesar admission and devise an individualized program for Endurance Training Weakness - to improve, our physical therapists will perform initial evaluation of pt's status upon ad mission and devise an individualized program for Aquatic Therapy, Neuromuscular Reeducation, and Stre ngthening Achieving independence - to improve, our physical therapists will perform initial evaluation of pt's status upon admission and devise an individualized program for Community Reintegration Activities - Occupational Therapy ADL deficits - to improve, our occupation therapists will perform initial evaluation of pt's status u cesar admission and devise an individualized program for Bathing, Bed mobility, Community Reintegration , Cooking, Dressing, Eating, Fine Motor Skills, Grooming, Homemaking, Kitchen Mobility, Laundry, Janeth ent Education, Safety Awareness, Splinting - Positioning, Transfers(Toilet, Tub, Shower), and Wheel C hair Management Cognitive deficits - to improve, our occupation therapists will perform initial evaluation of pt's st atus upon admission and devise an individualized program for Cognition - orientation Need for home care administrator - to improve, our occupation therapists will perform initial evaluation of pt's s tatus upon admission and devise an individualized program for Caregiver Training Weakness - to improve, our occupation therapists will perform initial evaluation of pt's status upon admission and devise an individualized program for Aquatic Therapy, Balance, Endurance, UE ROM, and U E strengthening MEDICAL PLAN: - Diet Type Start Regular - Diet - Liquid Texture Start Regular - Tube Feed Start N/A - Bladder care per protocol - Skin care per protocol - Diet - Solid Texture Regular - Shower shower DISCHARGE PLAN: - Estimated Length of Stay (days) 16. - Consensus on plan Discharge plan has been discussed with primary caregiver. Patient/Family is in agreement with the ewelina n. Primary caregiver is in agreement with the plan. - Patient/Family Goals Return home with assistance. - Planned Living Setting Upon Discharge Home, to live with Family/Relatives. Transitional Living. SIGNATURE PANEL: (STRATEGIC PLANNING SPECIALIST)
--- NOTE | 2018-03-27 15:44 | R.DS ---
FACILITY [facility] MR# [id number] NAME MUNIR CHAO ADDRESS [address] [place] [address] [address] [phone] PHONE DATE OF 1935 AGE 82 SSN# [id number] GENDER Male DEXTERITY Right-handed MARITAL STATUS RACE White ENCOUNTER PHYSICIAN Dr. Bear Sousa M.D. 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 DATE OF ADMISSION 03/17/2018 18:37 (STACKER AND SORTER OPERATOR) MEDICATION ALLERGIES: LEVOFLOXACIN INFLUENZA VIRUS VACCINE codeine ENVIRONMENTAL ALLERGIES: - Substance Allergies None Known - Other Allergies None Known NURSING: - Shower allowing shower - Bladder care per protocol - Skin care per protocol ACTIVITIES OOB only with supervision THERAPIES: - Orthotics/Prosthetics Orthotic Evaluation Splinting/Casting - Occupational Therapy Evaluate and Treat - Physical Therapy Evaluate and Treat HISTORY OF PRESENT ILLNESS: Pt. 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 was independent/mod-I in Self-Care and Sphincter Control; and he had good Sphincter Control.Currently, he has deficits of Balance, Self-Care, Endurance, Safety Rema reness, Transfers Control, Communication, Social Cognition, and Locomotion.Pt. is now referred to [facility] for acute in-patient rehabilitation in order to maximize patient's fun ctional independence in activities of daily living, strength, ROM, and mobility.- Rehab Goal Patient has realistic goal of being discharged at assistance level 6-Laura to reside at Home with Fam francine/Relatives. HOSPITAL COURSE: DIET - LIQUID TEXTURE: On 03/17/2018 Pt was upgraded to Regular Diet - Liquid Texture. DIET - SOLID TEXTURE: On 03/17/2018 Pt was upgraded to Regular Diet - Solid Texture. DIET TYPE: On 03/17/2018 Pt was upgraded to Regular Diet Type. TUBE FEED: On 03/17/2018 Pt was changed to N/A Tube Feed. DISCHARGE PHYSICAL EXAM - Gen Alert and awake Lying in bed No apparent distress Oriented to: person, time, and place - Skin No beakdown No abnormalities - Eyes No abnormalities - ENMT No abnormalities - Neck No abnormalities - CVS RRR - Chest Clear - Abd + bowel sounds - GI nondistended Deferred - Frequent urination due to UTI. - Ext Mild bilateral lower extremity edema. - MSK 4+/5 weakness in both lower extremities. Back muscle spasms. - Neuro 4/5 strength bilaterally lower extremities. - Psych No abnormalities FUNCTIONAL STATUS: - Self-Care A. Eating 5-sup 5-sup B. Grooming 5-sup 5-sup C. Bathing 5-sup 5-sup D. Dressing - Upper 4-Umesh 4-Umesh E. Dressing - Lower 3-modA 3-modA F. Toileting 7-Ind 7-Ind - Sphincter Control G: Bladder control 1-Dep 1-Dep H: Bowel control 1-Dep 1-Dep - Transfers Control I. Bed/Chair/Wheelchair 2-maxA 2-maxA J. Toilet 3-modA 3-modA K. Tub/Shower 3-modA 3-modA - Locomotion L. Walk/Wheelchair (B) 2-maxA 2-maxA M. Stairs 0-ADNO 0-ADNO - Communication N. Comprehension (B) 3-modA 3-modA O. Expression (B) 5-sup 5-sup - Social Cognition P. Social Interaction 5-sup 5-sup Q. Problem Solving 4-Umesh 4-Umesh R. Memory 4-Umesh 4-Umesh - Endurance Fair - Balance Poor - Safety Awareness Poor DISCHARGE INSTRUCTIONS: - N/A Lovenox 40 mg sq daily. DISCHARGE PLAN, FOLLOW UP CARE PROVISIONS: - Estimated Length of Stay (days) 16. - Consensus on plan Discharge plan has been discussed with primary caregiver. Patient/Family is in agreement with the ewelina n. Primary caregiver is in agreement with the plan. - Patient/Family Goals Return home with assistance. - Planned Living Setting Upon Discharge Home, to live with Family/Relatives. Transitional Living. SIGNATURE PANEL: (STACKER AND SORTER OPERATOR)
[2018-03-27 18:37] LABS: Alpha Fetoprotein-Tumor Marker 8.9 ng/mL (<6.1)
== END 2018-03-26 17:20 | disposition short-term general hospital (02) | DRG 552 ==
LOC: 5TH 18:36
PROVIDERS: ADMIT Psychiatry & Neurology Neurology with Special Qualifications in Child Neurology; ATTEND Psychiatry & Neurology Neurology with Special Qualifications in Child Neurology
DX: M48.061 Spinal stenosis, lumbar region without neurogenic claudication (principal); K80.10 Calculus of gallbladder with chronic cholecystitis without obstruction; Z86.73 Personal history of transient ischemic attack (TIA), and cerebral infarction without residual deficits; R33.9 Retention of urine, unspecified; N40.1 Benign prostatic hyperplasia with lower urinary tract symptoms; R33.8 Other retention of urine; I25.10 Atherosclerotic heart disease of native coronary artery without angina pectoris; Z98.61 Coronary angioplasty status; G62.9 Polyneuropathy, unspecified
CPT/HCPCS: 36415; 71045; 76705; 80048; 80053; 80074; 80076; 81001; 81003; 81015; 82040; 82103; 82105; 82140; 82150; 82390; 82728; 83540; 83605; 83690; 83735; 84100; 84134; 84145; 84466; 85025; 86038; 86255; 86704; 86706; 87040; 87086; 87088; 93005; 97110; 97116; 97127; 97163; 97167; 97530; J1650; J7030

== ENCOUNTER 2021-06-05 11:14 | Emergency (ER) | payer OTHER ==
--- OUTSIDE RECORDS SUMMARY | 2021-06-05 11:19 | XMS REPORT | Continuity of Care Document ---
:1935 Author Organization [facility] t Address [address] [place] [address] Care Team Providers Name Role Phone PAL LAMBERT Primary Care Physician Unavailable PAL LAMBERT Attending Clinician Unavailable Ward Dunn Attending Clinician KATHY Attending Clinician Unavailable Doctor Unassigned, Name Attending Clinician Unavailable Dutch FUENTES L Attending Clinician John JUDD Attending Clinician Unavailable Pal Lambert MD Attending Clinician Lab, Fam Pob I Attending Clinician Unavailable Payers Payer Name Policy Type Policy Number Effective Date Expiration Date S [facility] [place] A \T\ [id number] 2000 B 00:00:00 CONTINENTAL [id number] 2020 BENEFITS 00:00:00 Problems Condition Condition Condition Status Onset Resolution Last Treating Co mments Source Name Details Category Date Date Treatment Clinician Date Coronary Problem Active 2021-02-10 Mem oria arterioscl 05-05 22:36:28 l erosis in Coronary 00:00: Her hernandez [place] arterioscl 00 artery erosis in (disorder) [place] artery (disorder) Active 05/05/2015 Problem 02/10/2021 [facility] Essential Problem Active 2021-02-10 Me moria hypertensi 2- 22:36:28 l on 00:00: [place] (disorder) Essential 00 hypertensi on (disorder) Active 05/05/2015 Problem 02/10/2021 [facility] Hyperlipid Problem Active 2021-02-10 M emoria emia 05-05 22:36:28 l (disorder) 00:00: Kevin n Hyperlipid 00 emia (disorder) Active 05/05/2015 Problem 02/10/2021 [facility] Transient Problem Active 2021-02-10 Me moria ischemic 05-05 22:36:28 l attack 00:00: [place] (disorder) Transient 00 ischemic attack (disorder) Active 05/05/2015 Problem 02/10/2021 [facility] Neuropathy Problem Active 2021-02-10 M emoria (disorder) 03-28 22:36:28 l 00:00: [place] Neuropathy 00 (disorder) Active 03/28/2015 Problem 02/10/2021 [facility] Prediabete Prediabete Disease Active U inés s s 2-07 ity of 00:00: [place] 00 Medical Branch Lumbar Problem Active 2021-02-10 Memor ia radiculopa 22:36:28 l thy Lumbar [place] (disorder) radiculopa thy (disorder) Active Problem 02/10/2021 [facility] Cervical Problem Active 2021-02-10 Mem oria radiculopa 22:36:28 l thy Cervical Kevin n (disorder) radiculopa thy (disorder) Active Problem 02/10/2021 [facility] Confusiona Problem Active 2021-02-10 M emoria l state 22:36:28 l (disorder) Kevin n Confusiona l state (disorder) Active Problem 02/10/2021 [facility] Fracture Problem Active 2021-02-10 Mem oria of rib 22:36:28 l (disorder) Fracture [place] of rib (disorder) Active Problem 02/10/2021 [facility] Knee pain Problem Active 2021-02-10 Me moria (finding) 22:36:28 l Knee [place] pain (finding) Active Problem 02/10/2021 [facility] Recurrent Problem Active 2021-02-10 Me moria falls 22:36:28 l (finding) [place] Recurrent falls (finding) Active Problem 02/10/2021 [facility] Rib pain Problem Active 2021-02-10 Mem oria (finding) 22:36:28 l Rib pain Kevin n (finding) Active Problem 02/10/2021 [facility] Amnesia Problem Active 2021-02-10 Turner nereida (finding) 22:36:28 l Amnesia [place] (finding) Active Problem 02/10/2021 [facility] Myoclonus Problem Resolve 2021-02-10 2021-02-10 Memoria (finding) d 09-27 22:36:28 22:36:28 l 00:00: [place] Myoclonus 00 (finding) Resolved 09/28/2015 Problem 02/10/2021 [facility] Allergies, Adverse Reactions, Alerts Allergy Allergy Status Severity Reaction(s) Onset Inactive Treating Comm ents Source Name Type Date Date Clinician codeine codeine Active Mild Eruption of 2015-03 Mem oria phosphat phosphat skin 2-14 l e e (disorder) 00:00: Kevin n 00 levoFLOX levoFLOX Active Moderate Eruption of 2015-03 Memoria acin acin skin 2-14 l (disorder) 00:00: Kevin n 00 Levoflox Propensi Active Anaphylaxis U nivers acin ty to 2-25 ity of adverse 00:00: [place] reaction 00 Medical s Branch LEVOFLOX DRUG Active Anaphylaxis Uni vers ACIN INGREDI 2-25 ity of 00:00: [place] 00 Medical Branch Codeine Propensi Active Rash 2014-03 Univers ty to 0-15 ity of adverse 00:00: [place] reaction 00 Medical s to Branch drug CODEINE DRUG Active Med N/V 2014-03 Univers INGREDI 0-15 ity of 00:00: [place] [facility] Social History Social Habit Start Date Stop Date Quantity Comments Source Exposure to Not sure [place] of SARS-CoV-2 [place] [facility] (event) Branch History of Cigarette Smoker Universi ty of tobacco use [place] [facility] History SDOH University o f Alcohol Frequency [facility] edical Branch History SDKY University o f Alcohol Std [place] [facility] Drinks Branch History SDKY University o f Alcohol Binge [place] [facility] al [facility] Alcohol intake 2021-05-14 2021-05-14 Current drinker Unive rsity of 00:00:00 00:00:00 of alcohol [place] [facility] (finding) Branch Tobacco use and 2017-09-09 2017-09-09 Never used Universit y of exposure 00:00:00 00:00:00 [facility] Alcohol Comment 2014-12-22 2014-12-22 Occasional wine Univ ersity of 00:00:00 00:00:00 drinker [facility] Sex Assigned At [birth year] [facility] 00:00:00 [facility] Smoking Status Start Date Stop Date Source Former smoker 2017-09-09 00:00:00 2017-09-09 00:00:00 [facility] Medications Ordered Filled Start Stop Current Ordering Indication Dosage Frequency Signature Comments Components Source Medication Medication Date Date Medication? 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 losartan 25 2019-03 Yes 25mg Take 25 mg Univers mg tablet 0-12 by mouth ity of 14:20: daily. [place] [address] Medical Branch rosuvastati 2019-03 Yes 20mg Take 20 mg Univers n 20 mg 0-12 by mouth ity of tablet 14:20: at [place] [address] bedtime. Medical Branch gabapentin 2019-03 Yes 900mg Take 900 Un sabiha 300 mg 0-12 mg by ity of capsule 14:20: mouth 3 [place] [address] (three) Medical times Branch daily. apixaban 2019-03 Yes 2.5mg Take 2.5 Univ ers (ELIQUIS) 0-12 mg by ity of 2.5 mg 14:20: mouth 2 [place] tablet 35 (two) Medical times Branch daily. losartan 25 2019-03 Yes 25mg Take 25 mg Univers mg tablet 0-12 by mouth ity of 14:20: daily. [address] Branch rosuvastati 2019-03 Yes 20mg Take 20 mg Univers n 20 mg 0-12 by mouth ity of tablet 14:20: at [place] [address] bedtime. Medical Branch gabapentin 2019-03 Yes 900mg Take 900 Un sabiha 300 mg 0-12 mg by ity of capsule 14:20: mouth 3 [place] [address] (three) Medical times Branch daily. apixaban 2019-03 Yes 2.5mg Take 2.5 Univ ers (ELIQUIS) 0-12 mg by ity of 2.5 mg 14:20: mouth 2 [place] tablet 35 (two) Medical times Branch daily. losartan 25 2019-03 Yes 25mg Take 25 mg Univers mg tablet 0-12 by mouth ity of 14:20: daily. [address] Branch rosuvastati 2019-03 Yes 20mg Take 20 mg Univers n 20 mg 0-12 by mouth ity of tablet 14:20: at [place] [address] bedtime. Medical Branch gabapentin 2019-03 Yes 900mg Take 900 Un sabiha 300 mg 0-12 mg by ity of capsule 14:20: mouth 3 [place] [address] (three) Medical times Branch daily. apixaban 2019-03 Yes 2.5mg Take 2.5 Univ ers (ELIQUIS) 0-12 mg by ity of 2.5 mg 14:20: mouth 2 [facility] 35 (two) Medical times Branch daily. losartan 25 2019-03 Yes 25mg Take 25 mg Univers mg tablet 0-12 by mouth ity of 14:20: daily. [place] 35 Medical Branch rosuvastati 2019-03 Yes 20mg Take 20 mg Univers n 20 mg 0-12 by mouth ity of tablet 14:20: at [place] [address] bedtime. Medical Branch gabapentin 2019-03 Yes 900mg Take 900 Un sabiha 300 mg 0-12 mg by ity of capsule 14:20: mouth 3 [place] 35 (three) Medical times Branch daily. DULoxetine Yes See Memoria 30 mg oral - Instructio l delayed 22:57: ns, TAKE Kevin n release 00 ONE capsule CAPSULE BY MOUTH DAILY, # 30 unknown unit, 6 Refill(s), Pharmacy: [facility] [id number], 165.1, cm, 07/30/19 9:05:00 CDT, Height, 75.909, kg, 07/30/19 9:05:00 CDT, Weight TAMSULOSIN Yes [id number] TAKE ONE Univers 0.4 mg 24 7-29 CAPSULE BY ity of hr capsule 00:00: MOUTH DAILY Medical Branch TAMSULOSIN Yes [id number] TAKE ONE Univers 0.4 mg 24 7-29 CAPSULE BY ity of hr capsule 00:00: MOUTH DAILY Medical Branch TAMSULOSIN Yes [id number] TAKE ONE Univers 0.4 mg 24 7-29 CAPSULE BY ity of hr capsule 00:00: MOUTH DAILY Medical Branch TAMSULOSIN Yes [id number] TAKE ONE Univers 0.4 mg 24 7-29 CAPSULE BY ity of hr capsule 00:00: MOUTH DAILY Medical Branch gabapentin 2018-03 Yes See Memoria 600 MG Oral 03-31 Instructio l Tablet 20:41: ns, 1.5 [place] [Neurontin] 45 tab PO TID, # 540 tab, 2 Refill(s), Pharmacy: [place] [id number] DUTASTERIDE Yes [id number] TAKE ONE Univers 0.5 mg 7-10 CAPSULE BY ity of capsule 00:00: MOUTH DAILY Medical Branch DUTASTERIDE Yes [id number] TAKE ONE Univers 0.5 mg 7-10 CAPSULE BY ity of capsule 00:00: MOUTH DAILY Medical Branch DUTASTERIDE Yes [id number] TAKE ONE Univers 0.5 mg 7-10 CAPSULE BY ity of capsule 00:00: MOUTH DAILY Medical Branch DUTASTERIDE Yes [id number] TAKE ONE Univers 0.5 mg 7-10 CAPSULE BY ity of capsule 00:00: MOUTH DAILY Medical Branch gabapentin Yes See Memoria 600 MG Oral 6-28 Instructio l Tablet 13:51: ns, 1.5 [place] [Neurontin] 03 tab PO TID, # 540 tab, 2 Refill(s), Pharmacy: [place] [id number] Vital Signs Vital Name Observation Time Observation Value Comments Source Systolic blood 2021-05-14 19:48:00 124 mm[facility]Hg[facility] blood 2021-05-14 19:48:00 80 mm[Hg] [facility] Heart rate 2021-05-14 19:48:00 77 /min [facility] Body temperature 2021-05-14 19:48:00 36.56 Maribell [facility] Respiratory rate 2021-05-14 19:48:00 20 /min [facility] Oxygen saturation in 2021-05-14 19:48:00 92 /min [facility] Arterial blood by [facility] Pulse oximetry [place] Body height 2021-05-14 17:35:00 167.6 cm [facility] Body weight 2021-05-14 17:35:00 76.204 kg [facility] BMI 2021-05-14 17:35:00 27.12 kg/m2 [facility] Systolic blood 2020-12-13 18:20:00 114 mm[Hg] [facility] Diastolic blood 2020-12-13 18:20:00 69 mm[facility]Hg[facility] 2020-12-13 18:20:00 165.1 cm [facility] Body weight 2020-12-13 18:20:00 73.029 kg [facility] BMI 2020-12-13 18:20:00 26.79 kg/m2 [facility] Systolic (mm Hg) 2020-11-09 14:54:00 [place] rial [place] Diastolic (mm Hg) 2020-11-09 14:54:00 Mem orial [place] Heart Rate 2020-11-09 14:54:00 [facility] Respitory Rate 2020-11-09 14:54:00 Memori al [place] Systolic (mm Hg) 2020-04-06 15:15:00 [place] rial [place] Diastolic (mm Hg) 2020-04-06 15:15:00 Mem orial [place] Heart Rate 2020-04-06 15:15:00 [facility] [place] Respitory Rate 2020-04-06 15:15:00 Memori al [place] Height 2020-04-06 15:15:00 162.56 cm [facility] Weight 2020-04-06 15:15:00 [facility] BMI Calculated 2020-04-06 15:15:00 Memori al [place] Systolic (mm Hg) 2020-02-25 20:24:00 Turner rial [place] Diastolic (mm Hg) 2020-02-25 20:24:00 Mem orial [place] Heart Rate 2020-02-25 20:24:00 [facility] [place] Respitory Rate 2020-02-25 20:24:00 Memori al [place] Height 2020-02-25 20:24:00 165.1 cm [facility] Weight 2020-02-25 20:24:00 [facility] [place] BMI Calculated 2020-02-25 20:24:00 Memori al [place] Systolic (mm Hg) 2020-01-27 16:46:00 Turner rial [place] Diastolic (mm Hg) 2020-01-27 16:46:00 Mem orial [place] Heart Rate 2020-01-27 16:46:00 [facility] [place] Respitory Rate 2020-01-27 16:46:00 Memori al [place] Height 2020-01-27 16:46:00 162.56 cm [facility] [place] Weight 2020-01-27 16:46:00 [facility] [place] BMI Calculated 2020-01-27 16:46:00 Memori al [place] Temperature Oral (F) 2019-07-30 14:05:00 98.6 F [facility] [place] Systolic (mm Hg) 2019-07-30 14:05:00 Turner rial [place] Diastolic (mm Hg) 2019-07-30 14:05:00 Mem orial [place] Heart Rate 2019-07-30 14:05:00 [facility] [place] Respitory Rate 2019-07-30 14:05:00 Memori al [place] Height 2019-07-30 14:05:00 165.1 cm [facility] [place] Weight 2019-07-30 14:05:00 [facility] [place] BMI Calculated 2019-07-30 14:05:00 Memori al [place] Systolic (mm Hg) 2019-05-07 16:32:00 Turner rial [place] Diastolic (mm Hg) 2019-05-07 16:32:00 Mem orial [place] Heart Rate 2019-05-07 16:32:00 [facility] [place] Respitory Rate 2019-05-07 16:32:00 Memori al [place] Height 2019-05-07 16:32:00 165.1 cm [facility] [place] Weight 2019-05-07 16:32:00 [facility] [place] BMI Calculated 2019-05-07 16:32:00 Memori al [place] Systolic (mm Hg) 2019-01-29 20:06:00 Turner rial [place] Diastolic (mm Hg) 2019-01-29 20:06:00 Mem orial [place] Heart Rate 2019-01-29 20:06:00 [facility] [place] Respitory Rate 2019-01-29 20:06:00 Memori al [place] Height 2019-01-29 20:06:00 165.1 cm [facility] [place] Weight 2019-01-29 20:06:00 [facility] [place] BMI Calculated 2019-01-29 20:06:00 Memori al [place] Weight 2018-07-30 14:21:00 [facility] [place] BMI Calculated 2018-07-30 14:21:00 Memori al [place] Heart Rate 2018-07-30 14:21:00 [facility] [place] Height 2018-07-30 14:21:00 167.64 cm [facility] [place] Systolic (mm Hg) 2018-07-30 14:21:00 Turner rial [place] Diastolic (mm Hg) 2018-07-30 14:21:00 Mem orial [place] Procedures Procedure Date / Time Performing Clinician Source Performed XR LUMBAR SPINE 2 VW 2021-05-14 19:01:00 Alma Mccarthy [facility] ity [facility] XR KNEE <3 VW RIGHT 2021-05-14 19:01:00 [facility] XR SHOULDER 2+ VW RIGHT 2021-05-14 19:01:00 Alma Mccarthy [facility] CT HEAD WO CONTRAST 2021-05-14 18:42:14 Alma Mccarthy [facility] CONSENT/REFUSAL FOR 2021-05-14 17:22:17 Doctor Unassigned, No [facility] Name [facility] NOTICE OF PRIVACY 2021-05-14 17:21:58 Doctor Unassigned, No [facility] PRACTICES Name [facility] Laminectomy for [facility] decompression and exploration Encounters Start End Encounter Admission Attending Care Care Encounter Source Date/Time Date/Time Type Type Clinicians Facility Department ID 2021-05-23 2021-05-23 Outpatient Adán LAMBERT [facility] [id number] Univers 11:00:00 11:00:00 MARIA GUADALUPE [id number] [facility] 2021-05-23 2021-05-23 Outpatient Adán LAMBERT [facility] [id number] Univers 11:00:00 11:00:00 MARIA GUADALUPE [facility] 2021-05-14 2021-05-14 [facility] [id number] Univers 11:36:00 14:58:00 Alma Hopper [place] [id number] i [facility] [id number] [facility] [id number] [facility] 084 Branch 2021-05-14 2021-05-14 Outpatient R [facility] [id number] Univers 11:15:00 11:15:00 [id number] [facility] 2021-05-14 2021-05-14 Outpatient Adán CHAVEZ [facility] [id number] Univers 11:15:00 11:15:00 JARET [facility] 2021-05-14 2021-05-14 Outpatient Adán CHAVEZ [facility] ERT [id number] Univers 10:40:00 10:40:00 JARET [facility] 2021-05-14 2021-05-14 Letter Doctor AVELINA [id number] Univers 00:00:00 00:00:00 (Out) Unassigned, JOSE ALBERTO [id number] ity of [place] [facility] [id number] John as [phone] [facility] 044 [place] 2021-05-14 2021-05-14 Orders Doctor AVELINA [id number] Univers 00:00:00 00:00:00 Only Unassigned, JOSE ALBERTO [id number] ity of [place] [facility] [id number] John as [id number] [facility] 009 [place] 2021-02-08 2021-02-08 Ambulatory nullFlavo MNA [id number] Memoria 16:15:00 16:15:00 Pre-Reg r Neurology 20 l Pop [place] 2020-12-13 2020-12-13 [facility] [id number] Univers 13:45:00 14:28:50 [place] [id number] it y [facility] [id number] John as LEOLA?BLEA [phone] Nm [address] MEDICAL OFFICE BUILDING 2020-12-13 2020-12-13 [facility] [id number] Univers 13:45:00 14:28:50 SARAH thaddeus [facility] 2020-11-09 2020-11-10 Outpatient nullFlavo MNA [id number] Memoria 15:00:00 04:59:59 r Neurology 19 l Pop [place] 2020-10-26 2020-10-28 Outside nullFlavo MNA [id number] Memoria 19:39:10 04:59:59 Medical r Neurology 24 l Records Pop [place] 2020-10-17 2020-10-19 Outside nullFlavo MNA [id number] Memoria 14:33:42 04:59:59 Medical r Neurology 23 l Records Pop [place] 2020-10-03 2020-10-05 Outside nullFlavo MNA [id number] Memoria 14:05:31 04:59:59 Medical r Neurology 22 l Records Pop [place] 2020-09-12 2020-09-14 Outside nullFlavo MNA [id number] Memoria 13:15:26 04:59:59 Medical r Neurology 21 l Records Pop [place] 2020-09-01 2020-09-03 Outside nullFlavo MNA [id number] Memoria 21:41:20 04:59:59 Medical r Neurology 20 l Records Pop [place] 2020-08-12 2020-08-14 Outside nullFlavo MNA [id number] Memoria 23:48:44 04:59:59 Medical r Neurology 19 l Records Pop [place] 2020-07-11 2020-07-11 Ambulatory nullFlavo MNA [id number] Memoria 15:00:00 15:00:00 Pre-Reg r Neurology 18 l Pop [place] 2020-06-20 2020-06-22 Outside nullFlavo MNA [id number] Memoria 14:09:53 04:59:59 Medical r Neurology 18 l Records Pop [place] 2020-06-12 2020-06-14 Outside nullFlavo MNA [id number] Memoria 20:48:48 04:59:59 Medical r Neurology 17 l Records Pop [place] 2020-05-23 2020-05-25 Outside nullFlavo MNA [id number] Memoria 20:20:15 04:59:59 Medical r Neurology 16 l Records Pop [place] 2020-05-11 2020-05-13 Outside nullFlavo MNA [id number] Memoria 14:57:14 05:59:59 Medical r Neurology 15 l Records Pop [place] 2020-05-11 2020-05-12 Between nullFlavo MNA [id number] Memoria 19:26:29 19:26:29 Visit r Neurology 17 l Pop [place] 2020-04-11 2020-04-13 Outside nullFlavo MNA [id number] Memoria 21:31:30 05:59:59 Medical r Neurology 14 l Records Pop [place] 2020-04-06 2020-04-07 Outpatient nullFlavo MNA [id number] Memoria 15:00:00 05:59:59 r Neurology 17 l Pop [place] 2020-03-30 2020-04-01 Outside nullFlavo MNA [id number] Memoria 18:38:14 05:59:59 Medical r Neurology 13 l Records Pop [place] 2020-02-25 2020-02-26 Outpatient nullFlavo MNA [id number] Memoria 20:00:00 05:59:59 r Neurology 16 l Pop [place] 2020-01-27 2020-01-28 Outpatient nullFlavo MNA [id number] Memoria 16:45:00 05:59:59 r Neurology 15 l Pop [place] 2020-01-17 2020-01-19 Outside nullFlavo MNA [id number] Memoria 14:53:42 05:59:59 Medical r Neurology 11 l Records Pop [place] 2019-12-29 2019-12-31 Outside nullFlavo MNA [id number] Memoria 14:56:04 04:59:59 Medical r Neurology 10 l Records Pop [place] 2019 2019-12-22 Outside nullFlavo MNA [id number] Memoria 16:12:08 04:59:59 Medical r Neurology 09 l Records Pop [place] 2019-12-22 2019-12-22 Telephone [facility] [id number] 00:00:00 00:00:00 [facility] [id number] Edward [place] [id number] Professio [id number] [place] [address] Office Building One 2019 2019 Space Scheduler Lab, [facility] 1..840.114 [id number] 14:33:07 14:38:53 Visit [facility] [id number] [place] [id number] Professio [phone] [place] [address] Office Building One 2019 [address]840.114 [id number] 14:04:23 14:19:23 Visit [facility] [id number] Edward [place] [id number] Professio [id number] [place] [address] Office Building One 2019-12-01 2019-12-03 Outside nullFlavo MNA [id number] Memoria 15:09:41 04:59:59 Medical r Neurology 08 l Records Pop [place] 2019-11-22 2019-11-24 Outside nullFlavo MNA [id number] Memoria 19:18:01 04:59:59 Medical r Neurology 07 l Records Pop [place] 2019-11-02 2019-11-02 Ambulatory nullFlavo MNA [id number] Memoria 14:45:00 14:45:00 Pre-Reg r Neurology 14 l Pop [place] 2019-11-02 2019-11-02 Ambulatory nullFlavo MNA [id number] Memoria 14:45:00 14:45:00 Pre-Reg r Neurology 13 l Pop [place] 2019-07-30 2019-07-31 Outpatient nullFlavo MNA [id number] Memoria 14:15:00 04:59:59 r Neurology 11 l Pop [place] 2019-05-07 2019-05-08 Outpatient nullFlavo MNA [id number] Memoria 17:00:00 05:59:59 r Neurology 12 l Pop [place] 2019-01-29 2019-01-30 Outpatient nullFlavo MNA [id number] Memoria 19:45:00 05:59:59 r Neurology 10 l Pop [place] 2019-01-19 2019-01-19 Ambulatory nullFlavo MNA [id number] Memoria 19:00:00 19:00:00 Pre-Reg r Neurology 09 l Pop [place] 2018-11-03 2018-11-03 Ambulatory nullFlavo MNA [id number] Memoria 14:15:00 14:15:00 Pre-Reg r Neurology 08 l Pop [place] 2018-07-30 2018-07-31 Outpatient nullFlavo MNA [id number] Memoria 14:15:00 04:59:59 r Neurology 07 l [place] 2018-06-18 2018-06-18 Outpatient MHIE IE [id number] Memoria 16:00:00 16:00:00 06 john [place] 2018-06-02 2018-06-02 Outpatient IE TEX [id number] Memoria 08:30:00 08:30:00 05 john [place] 2018-04-15 2018-04-17 Outside nullFlavo MNA [id number] Memoria 20:22:00 05:59:59 Medical r Neurology 05 l Records Pop [place] 2018-04-10 2018-04-12 Outside nullFlavo MNA [id number] Memoria 19:36:00 05:59:59 Medical r Neurology 04 l Records Pop [place] 2018-03-23 2018-03-25 Outside nullFlavo MNA [id number] Memoria 20:14:00 05:59:59 Medical r Neurology 03 l Records Pop [place] 2018-03-14 2018-03-16 Outside nullFlavo MNA [id number] Memoria 16:20:00 05:59:59 Medical r Neurology 02 l Records Pop [place] 2018-02-04 2018-02-04 Ambulatory nullFlavo MNA [id number] Memoria 15:45:00 15:45:00 Pre-Reg r Neurology 04 l Pop [place] 2017-12-23 2017-12-23 Ambulatory nullFlavo MNA [id number] Memoria 14:00:00 14:00:00 Pre-Reg r Neurology 01 l Pop [place] 2017-11-05 2017-11-05 Outpatient MHIE MHIE [id number] Memoria 10:30:00 10:30:00 03 john [place] 2017-11-05 2017-11-05 Outpatient MHIE MHIE [id number] Memoria 10:30:00 10:30:00 02 john [place] 2017-06-24 2017-06-24 Outpatient MHIE MHIE [id number] Memoria 11:30:00 11:30:00 00 john [place] Results This patient has no known results.
--- NOTE | 2021-06-05 13:04 | RAD REPORT ---
EXAM DESCRIPTION: US - Scrotum Testicles - 06/05/2021 12:52 pm CLINICAL HISTORY: PAIN COMPARISON: Pelvis dated 06/12/2015 FINDINGS: The right testicle 3.7 x 3.2 x 2.0 cm. No intratesticular masses or evidence of testicular torsion. The left testicle 3.7 x 2.9 x 2.0 cm. No intratesticular masses or evidence of testicular torsion. Both epididymides are normal in size and appearance. Mild right hydrocele. IMPRESSION: No testicular torsion or testicular mass. Mild right hydrocele.
[2021-06-05 13:28] LABS: Urine Blood Negative (Negative); Urine Glucose Negative (Negative); Urine Protein Negative (Negative); Urine pH 5.5 (5.0-7.0)
[2021-06-05 13:46] LABS: Urine Appearance Clear (Clear); Urine Bilirubin Negative (Negative); Urine Blood Negative (Negative); Urine Color Yellow (Yellow); Urine Glucose Negative (Negative); Urine Protein Negative (Negative); Urine Specific Gravity 1.025 (1.005-1.030); Urine Urobilinogen 0.2 mg/dL (0.2-1.0); Urine pH 5.5 (5.0-7.0)
[2021-06-05 14:08] LABS: Urine Microscopic Reflex NO UMIC
--- NOTE | 2021-06-05 14:38 | ER ---
Nurse's Notes [facility] Name: Ranulfo Chao Age: 85 yrs Sex: Male : 1935 Arrival Date: 06/05/2021 Time: 11:18 Bed 26 Private MD: Diagnosis: Testicle pain;Urinary frequency;Urinary hesitancy Presentation: 06/05 11:27 Chief complaint: Patient states: URINARY HESITANCY, SCROTAL SWELLING AND BILATERAL bp FLANK PAIN x2 WK. STATES SHE HAS ATTEMPTED RECOMMENDED F/U APPOINTMENTS BUT EARLIEST AVAILABLE WAS AUGUST. Coronavirus screen: At this time, the client does not indicate any symptoms associated with coronavirus-19. Ebola Screen: No symptoms or risks identified at this time. Initial Sepsis Screen: Does the patient meet any 2 criteria? No. Patient's initial sepsis screen is negative. Does the patient have a suspected source of infection? No. Patient's initial sepsis screen is negative. Risk Assessment: Do you want to hurt yourself or someone else? Patient reports no desire to harm self or others. Onset of symptoms is unknown. 11:27 Method Of Arrival: Wheelchair bp 11:27 Acuity: SABINE 3 bp Triage Assessment: 11:38 General: Appears distressed, uncomfortable, Behavior is cooperative, appropriate for bp age, anxious. Pain: Complains of pain in left flank and right flank. EENT: No deficits noted. Neuro: No deficits noted. Cardiovascular: No deficits noted. Respiratory: No deficits noted. GI: No signs and/or symptoms were reported involving the gastrointestinal system. : Reports inability to void. Derm: No deficits noted. Musculoskeletal: No deficits noted. 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 H/O GILLAN-BARRE. - Social history:: Smoking status: Patient denies any tobacco usage or history of. Screenin:57 Abuse screen: Denies threats or abuse. Denies injuries from another. Nutritional bp screening: No deficits noted. Tuberculosis screening: No symptoms or risk factors identified. Fall Risk None identified. Assessment: 12:06 Reassessment: Pt in ultrasound at this time. process tech states they will bring ss patient back to 23 after imaging is complete. 13:17 General: Appears in no apparent distress. comfortable, Behavior is calm, cooperative, ld1 appropriate for age. Pain: Denies pain. Neuro: Level of Consciousness is awake, alert, obeys commands, Oriented to person, place, time, situation. Cardiovascular: Capillary refill < 3 seconds Patient's skin is warm and dry. Respiratory: Airway is patent Respiratory effort is even, unlabored, Respiratory pattern is regular, symmetrical. GI: Abdomen is flat, non-distended. : Reports URINARY RETENTION Denies pain. EENT: No signs and/or symptoms were reported regarding the EENT system. Derm: No signs and/or symptoms reported regarding the dermatologic system. Musculoskeletal: No signs and/or symptoms reported regarding the musculoskeletal system. 14:22 Reassessment: Patient appears in no apparent distress at this time. Patient is alert, ld1 oriented x 3, equal unlabored respirations, skin warm/dry/pink. Vital Signs: 11:27 BP 110 / 65; Pulse 76; Resp 16; Temp 98; Pulse Ox 97% ; Weight 73.03 kg; Height 5 ft. 5 bp in. (165.10 cm); 13:17 BP 116 / 75; Pulse 87; Resp 18; Pulse Ox 97% on R/A; ld1 14:22 BP 122 / 68; Pulse 74; Resp 18; Pulse Ox 98% on R/A; ld1 11:27 Body Mass Index 26.79 (73.03 kg, 165.10 cm) bp ED Course: 11:18 Patient arrived in ED. as 11:31 Triage completed. bp 11:38 Arm band placed on left wrist. bp 11:51 Gerardo Dodson DO is Attending Physician. ms3 11:57 Patient has correct armband on for positive identification. Adult w/ patient. bp 12:09 Alondra Mendes, RN is Primary Nurse. ld1 12:48 US Scrotum Testicles In Process Unspecified. EDMS 14:35 Bandar Curtis MD is Referral Physician. ms3 14:50 No provider procedures requiring assistance completed. Patient did not have IV access ld1 during this emergency room visit. Administered Medications: No medications were administered Outcome: 14:36 Discharge ordered by . ms3 14:50 Discharged to home via wheelchair, with family. ld1 14:50 Condition: stable 14:50 Discharge instructions given to patient, family, Instructed on discharge instructions, follow up and referral plans. medication usage, Demonstrated understanding of instructions, follow-up care, medications, Prescriptions given X 1. 14:50 Patient left the ED. ld1 Signatures: Dispatcher [employer] EDNC Tiny Cabral Shelby, DAVIAN RN Mak Little RN RN Gerardo Dodson, DO DO ms3 Alondra Mendes, RN RN ld1
--- NOTE | 2021-06-05 14:38 | EDPHYS ---
Physician Documentation [facility] Name: Ranulfo Chao Age: 85 yrs Sex: Male : 1935 Arrival Date: 06/05/2021 Time: 11:18 Bed 26 Private MD: ED Physician Gerardo Dodson HPI: 06/05 11:59 This 85 yrs old Male presents to ER via Wheelchair with complaints of Testicular ms3 swelling, difficulty with urination. 11:59 The patient presents with swelling, of the left testicle and right testicle. Onset: The ms3 symptoms/episode began/occurred 2 week(s) ago. Modifying factors: The symptoms are alleviated by nothing, the symptoms are aggravated by walking. Associated signs and symptoms: The patient has no apparent associated signs or symptoms. Severity of symptoms: At their worst the symptoms were moderate, in the emergency department the symptoms are unchanged. 85-year-old male presents with his for testicular swelling and pain. Patient states this becomes worse with walking. Patient states his current discomfort is a 6/10 and described as pressure. Patient denies alleviating or inciting factors. Patient denies nausea, vomiting. Patient states he does have difficulty with urination. 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 H/O GILLAN-BARRE. - Social history:: Smoking status: Patient denies any tobacco usage or history of. ROS: 11:59 Constitutional: Negative for fever, and chills. Eyes: Negative for injury, pain, ms3 redness, and discharge, ENT: Negative for injury, pain, and discharge, Neck: Negative for injury, pain, and swelling, Cardiovascular: Negative for chest pain, and palpitations. Respiratory: Negative for shortness of breath, cough, wheezing, and pleuritic chest pain, Abdomen/GI: Negative for abdominal pain, nausea, vomiting, diarrhea, and constipation, MS/Extremity: Negative for injury and deformity, Skin: Negative for injury, rash, and discoloration, Neuro: Negative for headache, weakness, numbness, tingling. 11:59 : Positive for small amounts, testicular pain Exam: 11:59 Constitutional: This is a well developed, well nourished patient who is awake, alert, ms3 and in no acute distress. Head/Face: Normocephalic, atraumatic. Eyes: Pupils equal round and reactive to light, extra-ocular motions intact. Lids and lashes normal. Conjunctiva and sclera are non-icteric and not injected. Periorbital areas with no swelling, redness, or edema. Neck: Trachea midline, no cervical lymphadenopathy. Supple, full range of motion without nuchal rigidity, or vertebral point tenderness. No Meningismus. Chest/axilla: Normal chest wall appearance and motion. Nontender with no deformity. Cardiovascular: Regular rate and rhythm with a normal S1 and S2. No gallops, murmurs, or rubs. Normal PMI, no JVD. No pulse deficits. Respiratory: Lungs have equal breath sounds bilaterally, clear to auscultation and percussion. No rales, rhonchi or wheezes noted. No increased work of breathing, no retractions or nasal flaring. Abdomen/GI: Soft, non-tender, with normal bowel sounds. No distension or tympany. No guarding or rebound. No evidence of tenderness throughout. Skin: Warm, dry with normal turgor. Normal color with no rashes, no lesions, and no evidence of cellulitis. Psych: Awake, alert, with orientation to person, place and time. Behavior, mood, and affect are within normal limits. Vital Signs: 11:27 BP 110 / 65; Pulse 76; Resp 16; Temp 98; Pulse Ox 97% ; Weight 73.03 kg; Height 5 ft. 5 bp in. (165.10 cm); 13:17 BP 116 / 75; Pulse 87; Resp 18; Pulse Ox 97% on R/A; ld1 14:22 BP 122 / 68; Pulse 74; Resp 18; Pulse Ox 98% on R/A; ld1 11:27 Body Mass Index 26.79 (73.03 kg, 165.10 cm) bp MDM: 11:58 Patient medically screened. ms3 11:59 Differential diagnosis: UTI, urinary retention, prostatitis. ms3 14:36 Data reviewed: vital signs, nurses notes, lab test result(s), radiologic studies, ms3 ultrasound. 14:36 ED course: Discussed labs and us with patient and his . They understand/ agree with ms3 plan All questions answered. Return precautions given to include worsening symptoms, or any other concerns. Patient is a/o x4, nad, non-toxic, ambulatory in ED, speaking full sentences.. 06/05 13:28 Order name: Urine Dipstick-Ancillary; Complete Time: 14:25 EDMS 06/05 11:59 Order name: US Scrotum Testicles; Complete Time: 14:25 ms3 06/05 11:59 Order name: Urine Dipstick-Ancillary (obtain specimen); Complete Time: 13:29 ms3 06/05 13:46 Order name: Urinalysis; Complete Time: 14:25 EDMS Administered Medications: No medications were administered Disposition Summary: 06/05/21 14:36 Discharge Ordered Location: Home ms3 Problem: new ms3 Symptoms: are resolved ms3 Condition: Stable ms3 Diagnosis - Testicle pain ms3 - Urinary frequency ms3 - Urinary hesitancy ms3 Followup: ms3 - With: Bandar Curtis MD - When: 2 - 3 days - Reason: Re-evaluation by your physician Discharge Instructions: - Discharge Summary Sheet ms3 - Benign Prostatic Hyperplasia ms3 Forms: - Medication Reconciliation Form ms3 - Thank You Letter ms3 - Antibiotic Education ms3 - Prescription Opioid Use ms3 Prescriptions: - TAMSULOSIN 0.4 mg - take 1 tablet by ORAL route once daily; 14 tablet; Refills: 0, Product ms3 Selection Permitted Signatures: Dispatcher [employer] EDMak Poole, RN RN Gerardo Ma DO DO ms3 Corrections: (The following items were deleted from the chart) 14:10 11:59 URINALYSIS+U.LAB.BRZ ordered. EDTX EDMS
[2021-06-05 15:03] VITALS: TEMP 98
[2021-06-05 15:05] VITALS: BP 122/68; O2SAT 98
== END 2021-06-05 14:50 | disposition home or self-care (01) ==
LOC: ER 11:14
DX: R35.0 Frequency of micturition (principal); R39.11 Hesitancy of micturition; N50.811 Right testicular pain; I10 Essential (primary) hypertension; E78.00 Pure hypercholesterolemia, unspecified; Z79.01 Long term (current) use of anticoagulants; Z88.1 Allergy status to other antibiotic agents; Z88.5 Allergy status to narcotic agent; Z88.7 Allergy status to serum and vaccine
CPT/HCPCS: 76870; 81003; 99283

== ENCOUNTER 2021-09-15 07:48 | Emergency (ER) | payer OTHER ==
--- NOTE | 2021-09-15 09:29 | RAD REPORT ---
EXAM DESCRIPTION: RAD - Lumbar Spine 3 Views - 09/15/2021 9:22 am CLINICAL HISTORY: Back pain FINDINGS: No fracture or dislocation is seen. Pedicular screws united by rods have been placed L4-S1. Bones are osteoporotic
[2021-09-15] MEDS ORDERED: LIDOCAINE 4% PATCH ONE (09:38)
--- NOTE | 2021-09-15 09:42 | ER ---
Nurse's Notes [facility] Name: Ranulfo Chao Age: 85 yrs Sex: Male : 1935 Arrival Date: 09/15/2021 Time: 07:52 Bed 5 Private MD: Diagnosis: Low back pain;Fall on same level from slipping, tripping and stumbling without subsequent striking against object Presentation: 09/15 08:06 Chief complaint: Patient states: tripped and fell 3 days ago, has had left lower back iw pain radiating to mid back since then, has had two previous back surgeries. Coronavirus screen: At this time, the client does not indicate any symptoms associated with coronavirus-19. Ebola Screen: Patient negative for fever greater than or equal to 101.5 degrees Fahrenheit, and additional compatible Ebola Virus Disease symptoms Patient denies exposure to infectious person. Patient denies travel to an Ebola-affected area in the 21 days before illness onset. No symptoms or risks identified at this time. Initial Sepsis Screen: Does the patient meet any 2 criteria? No. Patient's initial sepsis screen is negative. Does the patient have a suspected source of infection? No. Patient's initial sepsis screen is negative. Risk Assessment: Do you want to hurt yourself or someone else? Patient reports no desire to harm self or others. Onset of symptoms was September 12, 2021. 08:06 Method Of Arrival: Wheelchair iw 08:06 Acuity: SABINE 3 iw Triage Assessment: 08:06 General: Appears in no apparent distress. uncomfortable, Behavior is calm, cooperative, bp appropriate for age. Pain: Complains of pain in back. EENT: No deficits noted. Neuro: Level of Consciousness is awake, alert, obeys commands, Oriented to Appropriate for age Gait is steady. Cardiovascular: No deficits noted. Respiratory: No deficits noted. GI: No signs and/or symptoms were reported involving the gastrointestinal system. : No signs and/or symptoms were reported regarding the genitourinary system. Derm: No deficits noted. Musculoskeletal: Circulation, motion, and sensation intact. Range of motion: intact in all extremities. 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 - Social history:: Smoking status: Patient denies any tobacco usage or history of. Screenin:06 Abuse screen: Denies threats or abuse. Denies injuries from another. Nutritional bp screening: No deficits noted. Tuberculosis screening: No symptoms or risk factors identified. Fall Risk None identified. Assessment: 08:06 General: SEE TRIAGE NOTE. bp 09:27 Reassessment: PT RETURNED FROM RADIOLOGY. bp 09:57 Reassessment: PT DC HOME AMBULATORY WITH FAMILY, DX WITH LUMBAR PAIN. Neuro: Gait is bp steady. Vital Signs: 08:06 BP 130 / 76; Pulse 88; Resp 16; Temp 98.1; Pulse Ox 96% on R/A; Weight 73.48 kg; Height iw 5 ft. 7 in. (170.18 cm); Pain 9/10; 09:27 BP 142 / 94; Pulse 78; Resp 16; Pulse Ox 97% ; bp 09:57 BP 147 / 86; Pulse 95; Resp 16; Pulse Ox 95% ; bp 08:06 Body Mass Index 25.37 (73.48 kg, 170.18 cm) iw ED Course: 07:52 Patient arrived in ED. am2 07:57 Mak Little, DAVIAN is Primary Nurse. bp 08:01 Gadiel Harry, BEKA is PHCP. pm1 08:01 Earl Cota MD is Attending Physician. pm1 08:06 Patient has correct armband on for positive identification. Bed in low position. Call bp light in reach. Side rails up X2. Adult w/ patient. 08:08 Triage completed. iw 08:08 Arm band placed on. iw 09:24 Lumbar Spine (3 Views) XRAY In Process Unspecified. EDMS 09:57 No provider procedures requiring assistance completed. Patient did not have IV access bp during this emergency room visit. Administered Medications: 09:20 Drug: Lidoderm Patch 5 % (700 mg/patch) 1 patches Route: Topical; Site: affected area; bp Medication: 08:06 VIS not applicable for this client. bp Outcome: 09:42 Discharge ordered by . pm1 10:30 Discharged to home via wheelchair, with family. bp 10:30 Condition: stable 10:30 Discharge instructions given to patient, family, Instructed on discharge instructions, follow up and referral plans. medication usage, Demonstrated understanding of instructions, follow-up care, medications, Prescriptions given X 1. 10:30 Patient left the ED. bp Signatures: Dispatcher [employer] EDMS Мария Tucker, RN RN Gadiel Bowden NP [employer] FIELD COORDINATOR pm1 Shantell Aparicio am2 Mak Little, RN RN bp
--- NOTE | 2021-09-15 09:42 | EDPHYS ---
Physician Documentation [facility] Name: Ranulfo Chao Age: 85 yrs Sex: Male : 1935 Arrival Date: 09/15/2021 Time: 07:52 Bed 5 Private MD: ED Physician Earl Cota HPI: 09/15 08:52 This 85 yrs old Male presents to ER via Wheelchair with complaints of Back Pain, Fall pm1 Injury - 3 days ago. 08:52 The patient presents with pain that is acute. The symptoms are located in the left low pm1 back. Onset: The symptoms/episode began/occurred 3 day(s) ago. The pain does not radiate. Associated signs and symptoms: The patient has no apparent associated signs or symptoms, Pertinent negatives: abdominal pain, chest pain, dysuria, fever, numbness, tingling, weakness. The problem was sustained Patient tripped on his own feet and then fell on this right side. Patient presenting with pain to his left lower back. Negative for headache, head injury, neck pain . Modifying factors: The patient symptoms are alleviated by remaining still, the patient symptoms are aggravated by movement. Severity of symptoms: in the emergency department the symptoms are actually worse. The patient has not recently seen a physician. Patient with history of chronic back pain and back surgery. Patient presenting to ER with concerns over the hardware in his back. 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 - Social history:: Smoking status: Patient denies any tobacco usage or history of. ROS: 08:52 Constitutional: Negative for fever, chills, and weight loss, Cardiovascular: Negative pm1 for chest pain, palpitations, and edema, Respiratory: Negative for shortness of breath, cough, wheezing, and pleuritic chest pain. 08:52 : Negative for injury, bleeding, discharge, and swelling, MS/Extremity: Negative for injury and deformity, Skin: Negative for injury, rash, and discoloration, Neuro: Negative for headache, weakness, numbness, tingling, and seizure. 08:52 Back: Positive for of the left low back pain, Negative for decreased range of motion. 08:52 All other systems are negative. Exam: 08:52 Constitutional: This is a well developed, well nourished patient who is awake, alert, pm1 and in no acute distress. Head/Face: Normocephalic, atraumatic. 08:52 Skin: Warm, dry with normal turgor. Normal color with no rashes, no lesions, and no evidence of cellulitis. MS/ Extremity: Pulses equal, no cyanosis. Neurovascular intact. Full, normal range of motion. 08:52 Cardiovascular: Exam negative for acute changes, Rate: normal, Rhythm: regular, Pulses: no pulse deficits are appreciated. 08:52 Respiratory: Exam negative for acute changes, respiratory distress, shortness of breath. 08:52 Neuro: Exam negative for acute changes, Orientation: is normal, Mentation: is normal, Motor: is normal, moves all fours. Vital Signs: 08:06 BP 130 / 76; Pulse 88; Resp 16; Temp 98.1; Pulse Ox 96% on R/A; Weight 73.48 kg; Height iw 5 ft. 7 in. (170.18 cm); Pain 9/10; 09:27 BP 142 / 94; Pulse 78; Resp 16; Pulse Ox 97% ; bp 09:57 BP 147 / 86; Pulse 95; Resp 16; Pulse Ox 95% ; bp 08:06 Body Mass Index 25.37 (73.48 kg, 170.18 cm) iw MDM: 08:02 Patient medically screened. pm1 09:39 Data reviewed: vital signs. Data interpreted: Pulse oximetry: on room air is 97 %. pm1 Interpretation: normal. Counseling: I had a detailed discussion with the patient and/or guardian regarding: the historical points, exam findings, and any diagnostic results supporting the discharge/admit diagnosis, radiology results, the need for outpatient follow up, to return to the emergency department if symptoms worsen or persist or if there are any questions or concerns that arise at home. 09/15 08:52 Order name: Lumbar Spine (3 Views) XRAY; Complete Time: 09:38 pm1 Administered Medications: 09:20 Drug: Lidoderm Patch 5 % (700 mg/patch) 1 patches Route: Topical; Site: affected area; bp Disposition: 12:58 Co-signature as Attending Physician, Earl Cota MD. rn Disposition Summary: 09/15/21 09:42 Discharge Ordered Location: Home pm1 Problem: new pm1 Symptoms: have improved pm1 Condition: Stable pm1 Diagnosis - Low back pain pm1 - Fall on same level from slipping, tripping and stumbling without subsequent pm1 striking against object Followup: pm1 - With: Emergency Department - When: As needed - Reason: Worsening of condition Followup: pm1 - With: Private Physician - When: 2 - 3 days - Reason: Recheck today's complaints, Continuance of care, Re-evaluation by your physician Discharge Instructions: - Discharge Summary Sheet pm1 - Fall Prevention in the Home, Adult pm1 - Musculoskeletal Pain pm1 - Back Injury Prevention, [id number] pm1 Forms: - Medication Reconciliation Form pm1 - Thank You Letter pm1 - Antibiotic Education pm1 - Prescription Opioid Use pm1 Prescriptions: - Lidoderm 5 % Topical adhesive patch,medicated - apply 1 patch by TRANSDERMAL route once daily As needed 12 hours on and 12 pm1 hours off in a 24 hour period; 30 patch; Refills: 0, Product Selection Permitted Signatures: Dispatcher [employer] Мария Christiansen, Earl Mckeon RN, MD MD rn Marinas, Patrick, BEKA OCCUPATIONAL PHYSICIAN pm1 Mak Little, RN RN bp
[2021-09-15 10:41] VITALS: TEMP 98.1
[2021-09-15 10:44] VITALS: BP 147/86; O2SAT 95
== END 2021-09-15 10:30 | disposition home or self-care (01) ==
LOC: ER 07:48
DX: M54.50 Low back pain, unspecified (principal); W01.0XXA Fall on same level from slipping, tripping and stumbling without subsequent striking against object, initial encounter; I10 Essential (primary) hypertension; Z79.01 Long term (current) use of anticoagulants; Z88.1 Allergy status to other antibiotic agents; Z88.5 Allergy status to narcotic agent; Z88.7 Allergy status to serum and vaccine
CPT/HCPCS: 72100; J2001; 99283

== ENCOUNTER 2021-10-24 19:33 | Observation (INO) | payer OTHER ==
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
[2021-10-24] MEDS ORDERED: LIDOCAINE 1% MPF 30 ML VIAL ONE (21:48)
[2021-10-24] MEDS ORDERED: METOPROLOL TAR 25 MG TAB ONE (21:48)
[2021-10-24 23:47] LABS: Absolute Lymphocytes (CBC) 2.8 K/uL (0.7-4.9); Hematocrit 38.9 % (39.6-49.0); Lymphocytes % 22.3 % (15.3-44.8); MCV 86.6 fL (80-100); MPV 8.2 fL (7.6-11.3); RBC Red Blood Cell Count 4.49 M/uL (4.33-5.43)
[2021-10-24 23:55] LABS: Protime INR 1.42
[2021-10-25 00:08] LABS: SARS-CoV-2 Antigen Rapid Res Negative (Negative)
[2021-10-25] MEDS ORDERED: CEFAZOLIN SODIUM 1 GM/VIAL ONE (00:31)
[2021-10-25] MEDS ORDERED: NA CHLORIDE 0.9% 100 ML ONE (00:31)
--- NOTE | 2021-10-25 01:05 | ER ---
Nurse's Notes [facility] Name: Ranulfo Chao Age: 85 yrs Sex: Male : 1935 Arrival Date: 10/24/2021 Time: 19:35 Bed 25 Private MD: Diagnosis: Right Hand Laceration;Right Elbow Laceration;Tachycardia;Dizziness and giddiness Presentation: 10/24 19:59 Chief complaint: Patient's son or daughter states: He was mowing his yard and stepped kd3 off his mower and he got dizzy and fell backwards and he cut open his right elbow and right hand. Coronavirus screen: Vaccine status: Patient reports being unvaccinated. Ebola Screen: No symptoms or risks identified at this time. Initial Sepsis Screen: Does the patient meet any 2 criteria? No. Patient's initial sepsis screen is negative. Does the patient have a suspected source of infection? No. Patient's initial sepsis screen is negative. Risk Assessment: Do you want to hurt yourself or someone else? Patient reports no desire to harm self or others. Onset of symptoms was October 24, 2021. 19:59 Method Of Arrival: Ambulatory kd3 19:59 Acuity: SABINE 3 kd3 21:25 Care prior to arrival: None. Mechanism of Injury: Fall from standing position. Trauma as6 event details: Injury occurred in the [facility]. Triage Assessment: 20:04 General: Appears in no apparent distress. Behavior is calm, cooperative. Pain: kd3 Complains of pain in right hand, right elbow. Trauma Activation: Not Applicable Physician: ED Physician; Name: ; Notified At: ; Arrived At: Physician: General Surgeon; Name: ; Notified At: ; Arrived At: Physician: Radiology; Name: ; Notified At: ; Arrived At: Physician: Respiratory; Name: ; Notified At: ; Arrived At: Physician: Lab; Name: ; Notified At: ; Arrived At: Historical: - Allergies: 20:04 Codeine; kd3 20:04 Influenza Virus Vaccines; kd3 20:04 Levaquin; kd3 - Home Meds: 20:04 duloxetine 60 mg Oral cpDR 1 cap once daily [Active]; Eliquis 2.5 mg Oral tab 1 tab 2 kd3 times per day [Active]; metoprolol tartrate 25 mg Oral tab 1 tab 2 times per day [Active]; gabapentin 1,800mg Oral tab 3 tabs twice a day [Active]; prednisone 5 mg Oral tab once daily [Active]; rosuvastatin 20 mg Oral cpSP 1 cap once daily [Active]; - PMHx: 20:04 High Cholesterol; Hypertension; 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 - Social history:: Smoking status: Patient denies any tobacco usage or history of. - Immunization history: Last tetanus immunization: none per patient choice. Screenin:05 Abuse screen: Denies threats or abuse. Denies injuries from another. Nutritional kd3 screening: No deficits noted. Tuberculosis screening: No symptoms or risk factors identified. Fall Risk Gait- Weak (10 pts.). Primary Survey: 21:25 NO uncontrolled hemorrhage observed. A: The client is awake and alert. The airway is as6 patent. Breathing/Chest: Spontaneous respiratory effort, equal unlabored respirations, breath sounds clear bilaterally, regular pattern, symmetrical chest rise and fall. Circulation: No external hemorrhage present. Regular and strong central pulse, skin warm/dry/normal color. Disability Pupils are equal, round, reactive to light and accommodation. Client is alert. Exposure/Environment: A warming method has been applied: A warm blanket has been provided to the patient. Assessment: 21:26 General: Appears in no apparent distress. Behavior is calm, cooperative. Pain: as6 Complains of pain in right hand and right elbow. Neuro: Level of Consciousness is awake, alert. Respiratory: Respiratory effort is even, unlabored. Derm: Wound noted right hand Wound is laceration. Derm: Wound noted right elbow Wound is skin tear. Vital Signs: 19:59 BP 126 / 71; Pulse 128; Resp 19; Temp 98.9; Pulse Ox 96% on R/A; Weight 68.95 kg; kd3 Height 5 ft. 6 in. (167.64 cm); Pain 4/10; 21:24 BP 154 / 90; Pulse 122; Resp 16 S; Pulse Ox 99% on R/A; as6 22:37 BP 135 / 80; Pulse 87; Resp 21 S; Pulse Ox 97% on R/A; as6 08/18 02:02 BP 136 / 77 Supine; Pulse 88; aa9 02:08 BP 144 / 71 Sitting; Pulse 99; aa9 02:12 BP 126 / 76; Pulse 103; aa9 02:48 BP 119 / 68; Pulse 91; Resp 15 S; Pulse Ox 96% on R/A; aa9 10/24 19:59 Body Mass Index 24.53 (68.95 kg, 167.64 cm) kd3 [place] Coma Score: 10/24 21:25 Eye Response: spontaneous(4). Verbal Response: oriented(5). Motor Response: obeys as6 commands(6). Total: 15. Trauma Score (Adult): 21:25 Eye Response: spontaneous(1); Verbal Response: oriented(1); Motor Response: obeys as6 commands(2); Systolic BP: > 89 mm Hg(4); Respiratory Rate: 10 to 29 per min(4); [place] Score: 15; Trauma Score: 12 ED Course: 19:35 Patient arrived in ED. jj6 20:04 Triage completed. kd3 20:04 Arm band placed on left wrist. kd3 20:33 Leonid العلي PA is PHCP. m 20:33 Earl Cota MD is Attending Physician. jmm 21:24 Anthony Abdul, DAVIAN is Primary Nurse. as6 21:26 Bed in low position. Call light in reach. Side rails up X2. Client placed on continuous as6 cardiac and pulse oximetry monitoring. NIBP monitoring applied. Warm blanket given. 21:26 Patient maintains SpO2 saturation greater than 95% on room air. Thermoregulation: warm as6 blanket given to patient. 22:57 XRAY Chest (1 view) In Process Unspecified. EDMS 23:20 CT Head Brain wo Cont In Process Unspecified. EDMS 23:20 Inserted saline lock: 20 gauge in left antecubital area, using aseptic technique. Blood aa9 collected. 23:38 SARS RAPID Sent. aa9 10/25 01:03 Bird Cota MD is Hospitalizing Provider. jmm 01:53 Hand Right 3 View XRAY In Process Unspecified. EDMS 01:53 Elbow Right 3 View XRAY In Process Unspecified. EDMS 02:21 Door closed. Lights dimmed. Warm blanket given. Head of bed. aa9 Administered Medications: 10/24 21:41 Drug: Metoprolol 25 mg Route: PO; ld1 23:39 Drug: Lidocaine (1 %) 20 ml {Note: administered by provider .} Volume: 20 ml; Route: as6 Infiltration; 10/25 00:33 Drug: Ancef (cefazolin) 1 grams Route: IVPB; Site: left antecubital; aa9 00:43 Follow up: Response: No adverse reaction; IV Status: Completed infusion; IV Intake: aa9 100ml 02:19 Drug: NS 0.9% 500 ml Route: IV; Rate: bolus; Site: right antecubital; aa9 03:41 Follow up: Response: No adverse reaction; IV Status: Completed infusion aa9 Medication: 10/24 21:26 VIS not applicable for this client. as6 Intake: 21:25 PO: 0ml; Total: 0ml. as6 10/25 00:43 IV: 100ml; Total: 100ml. aa9 Outcome: 01:04 Decision to Hospitalize by Provider. jose 17:40 Patient left the ED. 3 Signatures: Dispatcher [employer] EDMS Leonid العلي PA PA [facility] Alondra Mendes, RN RN ld1 Jonna Lewis jj6 Anthony Abdul RN RN as6 Rosa Garcia RN RN kd3 Tessa Mallory RN RN 3 Juliet Renteria, RN RN aa9
--- NOTE | 2021-10-25 01:05 | EDPHYS ---
Physician Documentation [facility] Name: Ranulfo Chao Age: 85 yrs Sex: Male : 1935 Arrival Date: 10/24/2021 Time: 19:35 Bed 25 Private MD: ED Physician Earl Cota HPI: 10/24 21:18 This 85 yrs old Male presents to ER via Ambulatory with complaints of Fall Injury, jmm Laceration To Arm, Laceration To Hand, Dizziness. 21:18 Details of fall: The patient fell from an upright position. Onset: The symptoms/episode jmm began/occurred acutely, today. Associated injuries: The patient sustained Right hand, right elbow. Is an 85-year-old male with history of hyperlipidemia, hypertension, deep venous thrombosis that presents emerged department with complaints of right hand and right elbow pain following a fall which occurred earlier today. Patient states he became dizzy while working around a barn. Patient states he has had intermittent episodes of dizziness over the past 5 days. Family attributes this to him unable to fill prescription for metoprolol.. 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 - Social history:: Smoking status: Patient denies any tobacco usage or history of. - Immunization history: Last tetanus immunization: none per patient choice. ROS: 21:18 Constitutional: Negative for fever, chills, and weight loss, Cardiovascular: Negative jmm for chest pain, palpitations, and edema, Respiratory: Negative for shortness of breath, cough, wheezing, and pleuritic chest pain. 21:18 MS/extremity: Positive for injury or acute deformity. 21:18 Neuro: Positive for dizziness. 21:18 All other systems are negative. Exam: 21:18 Constitutional: This is a well developed, well nourished patient who is awake, alert, jmm and in no acute distress. Head/Face: atraumatic. Eyes: EOMI, no conjunctival erythema appreciated ENT: Moist Mucus Membranes Neck: Trachea midline, Supple Chest/axilla: Normal chest wall appearance and motion. Cardiovascular: Regular rate and rhythm. No edema appreciated Respiratory: Normal respirations, no respiratory distress appreciated Abdomen/GI: Non distended Back: Normal ROM 21:18 Skin: 4 cm laceration noted to the right hand, she is centimeter laceration noted to the right elbow. 21:18 Neuro: Orientation: is normal, Mentation: is normal, Memory: is normal. 21:18 Psych: Behavior/mood is pleasant, cooperative. Vital Signs: 19:59 BP 126 / 71; Pulse 128; Resp 19; Temp 98.9; Pulse Ox 96% on R/A; Weight 68.95 kg; kd3 Height 5 ft. 6 in. (167.64 cm); Pain 4/10; 21:24 BP 154 / 90; Pulse 122; Resp 16 S; Pulse Ox 99% on R/A; as6 22:37 BP 135 / 80; Pulse 87; Resp 21 S; Pulse Ox 97% on R/A; as6 18 02:02 BP 136 / 77 Supine; Pulse 88; aa9 02:08 BP 144 / 71 Sitting; Pulse 99; aa9 02:12 BP 126 / 76; Pulse 103; aa9 02:48 BP 119 / 68; Pulse 91; Resp 15 S; Pulse Ox 96% on R/A; aa9 10/24 19:59 Body Mass Index 24.53 (68.95 kg, 167.64 cm) kd3 [place] Coma Score: 10/24 21:25 Eye Response: spontaneous(4). Verbal Response: oriented(5). Motor Response: obeys as6 commands(6). Total: 15. Trauma Score (Adult): 21:25 Eye Response: spontaneous(1); Verbal Response: oriented(1); Motor Response: obeys as6 commands(2); Systolic BP: > 89 mm Hg(4); Respiratory Rate: 10 to 29 per min(4); Hollis Score: 15; Trauma Score: 12 Laceration: 10/25 00:59 Wound Repair of 4cm ( 1.6in ) subcutaneous laceration to right hand. Distal [facility] neuro/vascular/tendon intact. Anesthesia: Local anesthetic administered with 4 mls of 1% lidocaine. Wound prep: Extensive cleansing with betadine by or, Copious irrigation. Skin closed with 4 4-0 Prolene using simple sutures and sterile technique. Patient tolerated well. 00:59 Wound Repair of 2cm ( 0.8in ) subcutaneous laceration to right elbow. Distal m neuro/vascular/tendon intact. Anesthesia: Local anesthetic administered with 5 mls of 1% lidocaine. Wound prep: Copious irrigation. MDM: 10/24 21:18 Patient medically screened. [facility] 10/25 01:00 Data reviewed: vital signs, nurses notes. Counseling: I had a detailed discussion with jose the patient and/or guardian regarding: lab results, radiology results. ED course: I discussed the patient with Diego strange whom accepted the patient to Dr. Cota's service. . 10/24 22:45 Order name: Basic Metabolic Panel; Complete Time: 01:34 [facility] 10/24 22:45 Order name: CBC with Diff; Complete Time: 00:02 [facility] 10/24 22:45 Order name: LFT's; Complete Time: :34 [facility] 10/24 22:45 Order name: Magnesium; Complete Time: :34 [facility] 10/24 22:45 Order name: NT PRO-BNP; Complete Time: 01:34 [facility] 10/24 22:45 Order name: PT-INR; Complete Time: 00:02 [facility] 10/24 22:45 Order name: Troponin HS; Complete Time: 01:34 [facility] 10/24 22:45 Order name: XRAY Chest (1 view) [facility] 10/24 22:45 Order name: CT Head Brain wo Cont [facility] 10/24 22:47 Order name: SARS RAPID; Complete Time: 00:10 [facility] 10/25 05:11 Order name: Troponin High Sensitivity [facility] 10/25 05:11 Order name: T4 Free [facility] 10/25 05:34 Order name: Thyroid Stimulating Hormone [facility] 10/25 11:36 Order name: Troponin High Sensitivity [facility] 10/24 22:45 Order name: EKG; Complete Time: 22:45 [facility] 10/24 22:45 Order name: Cardiac monitoring; Complete Time: 22:47 [facility] 10/24 22:45 Order name: EKG - Nurse/Tech; Complete Time: 23:38 [facility] 10/24 22:45 Order name: IV Saline Lock; Complete Time: 23:38 [facility] 10/24 22:45 Order name: Labs collected and sent; Complete Time: 23:38 [facility] 10/24 22:45 Order name: O2 Per Protocol; Complete Time: 22:47 [facility] 10/24 22:45 Order name: O2 Sat Monitoring; Complete Time: 22:47 [facility] 10/25 01:00 Order name: Hand Right 3 View XRAY [facility] 10/25 01:00 Order name: Elbow Right 3 View XRAY [facility] 10/25 01:24 Order name: Orthostatics; Complete Time: 02:20 la1 Administered Medications: 10/24 21:41 Drug: Metoprolol 25 mg Route: PO; ld1 23:39 Drug: Lidocaine (1 %) 20 ml {Note: administered by provider .} Volume: 20 ml; Route: as6 Infiltration; 10/25 00:33 Drug: Ancef (cefazolin) 1 grams Route: IVPB; Site: left antecubital; aa9 00:43 Follow up: Response: No adverse reaction; IV Status: Completed infusion; IV Intake: aa9 100ml 02:19 Drug: NS 0.9% 500 ml Route: IV; Rate: bolus; Site: right antecubital; aa9 03:41 Follow up: Response: No adverse reaction; IV Status: Completed infusion aa9 Disposition: 19:16 Co-signature as Attending Physician, Earl Cota MD I agree with the assessment and rn plan of care. Attestation: The patient's history, exam findings, diagnostics, and a summary of any interventions or procedures was reviewed in detail with Leonid MOHAN. Disposition Summary: 10/25/21 01:04 Hospitalization Ordered Hospitalization Status: Observation [facility] Provider: Bird Cota Condition: Stable jmm Problem: new jmm Symptoms: have improved jmm Bed/Room Type: Standard [facility] Location: [facility] ER HOLD(10/25/21 01:49) cg Room Assignment: ERHOLD-(10/25/21 01:49) cg Diagnosis - Right Hand Laceration jmm - Right Elbow Laceration jmm - Tachycardia jmm - Dizziness and giddiness jm Forms: - Medication Reconciliation Form jm - SBAR form [facility] Signatures: Dispatcher [employer] EDLeonid Napier PA PA m Earl Cota MD MD rn Attema, Lee, COUTURE DRESSMAKER-C COUTURE DRESSMAKER-Cla1 Aleida Meier, RN RN cg Alondra Mendes RN RN ld1 Anthony Abdul RN RN as6 Rosa Garcia RN RN kd3 Juliet Renteria RN RN aa9 Corrections: (The following items were deleted from the chart) 01:49 01:04 Telemetry/MedSurg (observation) [facility] [place] 01:49 01:04 [facility] cg
[2021-10-25 01:13] LABS: Albumin 3.7 g/dL (3.4-5.0); Bilirubin Direct 0.1 mg/dL (0-0.2); Bilirubin Total 0.6 mg/dL (0.2-1.0); Magnesium 1.9 mg/dL (1.8-2.4); Potassium 4.5 mmol/L (3.5-5.1); Protein, Total 7.3 g/dL (6.4-8.2); Troponin High Sensitivity 40.9 pg/mL (<58.9)
--- NOTE | 2021-10-25 02:06 | P.HP ---
Certification for Inpatient Patient admitted to: Observation With expected LOS: <2 Midnights Patient will require the following post-hospital care: None Practitioner: I am a practitioner with admitting privileges, knowledge of patient current condition, hospital course, and medical plan of care. Services: Services provided to patient in accordance with Admission requirements found in Title 42 Section 412.3 of the Code of Federal Regulations Patient History Date of Service: 10/25/21 History of Present Illness: 85-year-old male history of CAD, Guillain-Vo, hypertension, hyperlipidemia, neuropathy presents emergency department for dizziness, syncope. He reports that he was getting up off of his tractor when he became suddenly dizzy and fell backwards sustaining a laceration to his arm. His reports he has been having these episodes over the course of the last couple of months, he is also been out of his metoprolol for the past 5 to 6 days. No known history of atrial fibrillation he is currently in sinus rhythm with a rate of about 90 although when he arrived to the emergency department he was tachycardic with a heart rate in the 120s, EKG was not obtained at that time unsure if this was sinus tachycardia or atrial fibrillation. Patient was worked up in the emergency department his labs were significant for CASANDRA/CKD 3, mild leukocytosis high-sensitivity troponin negative EKG without ST elevations chest x-ray and CT of the head/C-spine negative for acute findings. Patient had laceration repair to the right arm with large amounts of irrigation as there was dirt present in the wounds he was given a gram of Ancef and his home dose of metoprolol which she has been without for the past few days and ED provider wishes to admit under observation for further evaluation and management of syncope, fall. Allergies levofloxacin [From Levaquin] Allergy (Verified 02/16/16 15:31) Hives/Rash codeine [Codeine] Adverse Reaction (Intermediate, Verified 09/16/15 03:29) Itching INFLUENZA VIRUS VACCINES Allergy (Uncoded 03/03/17 12:11) Unknown Home Medications: Acetaminophen [Tylenol*] 325 mg PO Q4H PRN tab 03/26/18 Albuterol Neb [Proventil 0.083% Neb Soln] 2.5 mg NEB [id number] amp 03/26/18 Atorvastatin Calcium [Lipitor] 80 mg PO BEDTIME tab 03/26/18 Bisacodyl [Dulcolax*] 10 mg TN DAILY PRN supp 03/26/18 Cetirizine HCl [Zyrtec*] 5 mg PO DAILY PRN tablet 03/26/18 Cholecalciferol (Vitamin D3) [Vitamin D 1000 Iu Tab*] 1,000 unit PO DAILY tab 03/26/18 Docusate/Senna [Senokot-S*] 2 tab PO BEDTIME PRN tab 03/26/18 Enoxaparin Sodium [Lovenox 40 MG INJ*] 40 mg SQ DAILY 5 PM syr 03/26/18 Ensure Enlive 360 ml PO BID can 03/26/18 Gabapentin [Neurontin*] 1,200 mg PO TID cap 03/26/18 Hydrocodone 5/APAP 325 [[place] 5/325*] 1 tab PO Q8H PRN tab 03/26/18 Ipratropium Neb [Atrovent*] 0.5 mg IH [id number] amp 03/26/18 Lidocaine 4% Patch [Lidoderm 5% Patch*] 1 patch TOP DAILY patch 03/26/18 Magnesium Oxide [Mag 0X*] 800 mg PO DAILY tab 03/26/18 Melatonin [Melatonin*] 6 mg PO BEDTIME PRN PRN tablet 03/26/18 Ondansetron [Zofran (Odt)*] 4 mg PO Q6H PRN tab 03/26/18 Pantoprazole [Protonix Tab*] 40 mg PO ACB tab 03/26/18 Sodium Chloride Tab [Sodium Chloride*] 2 gm PO BIDWM tab 03/26/18 Tamsulosin [Flomax*] 0.4 mg PO DAILY cap 03/26/18 bisacodyL [Dulcolax*] 5 mg PO DAILY PRN tab 03/26/18 methocarbamoL [Robaxin*] 500 mg PO Q8HP PRN tab 03/26/18 traMADol HCL [Ultram*] 50 mg PO Q4H PRN tab 03/26/18 - Past Medical/Surgical History Diabetic: No -: Hx of Guillain [place] -: Coronary artery disease -: Neck pain -: CHF? -: CHRONIC BACK PAIN -: VERTEBRAL COMPRESSION -: HTN -: HLD -: Stents placed in his heart -: neck surgery -: both shoulder surgery -: back surgery 2018 -: cataract surgery cesar Psychosocial/ Personal History: Pt lives at home with his - Family History Father -: Stroke Mother -: Lung disease Notes: osteoporosis Brother -: Heart disease, Lung disease - Social History Smoking Status: Never smoker Alcohol use: No CD- Drugs: No Caffeine use: Yes Place of Residence: Home Review of Systems 10-point ROS is otherwise unremarkable Cardiovascular: Other (syncope) Neurological: Other (dizziness) Physical Examination - Physical Exam General: Alert, In no apparent distress, Oriented x3 HEENT: Atraumatic, PERRLA, Mucous membr. moist/pink, EOMI, Sclerae nonicteric Neck: Supple, 2+ carotid pulse no bruit, No LAD, Without JVD or thyroid abnormality Respiratory: Clear to auscultation bilaterally, Normal air movement Cardiovascular: Regular rate/rhythm, Normal S1 S2 Capillary refill: <2 Seconds Gastrointestinal: Normal bowel sounds, No tenderness Musculoskeletal: No tenderness Integumentary: Other (laceration to right forearm/wrist with sutures in place. Skin tear to RUE) Neurological: Normal gait, Normal speech, Normal strength at 5/5 x4 extr, Normal tone, Normal affect Lymphatics: No axilla or inguinal lymphadenopathy - Studies Laboratory Data (last 24 hrs) 10/24/21 23:28: PT 15.7 H, INR 1.42 10/24/21 23:28: WBC 12.40 H, Hgb 12.6 L, Hct 38.9 L, Plt Count 304 10/24/21 23:28: Sodium 140, Potassium 4.5, BUN 22 H, Creatinine 1.50 H, Glucose 138 H, Magnesium 1.9, Total Bilirubin 0.6, AST 34, ALT 27, Alkaline Phosphatase 99 Assessment and Plan - Plan Assessment: Syncope, fall Laceration/skin tear right upper extremity History of Guillain-Vo with neuropathy CAD on chronic anticoagulationEliquis Hypertension Hyperlipidemia Plan: Syncope, fall: Patient and report a few episodes in the past month or 2 with dizziness, syncope/fall. Patient reports he gets dizzy, feels lightheaded and then passes out. He denies any palpitations, chest pain, shortness of breath or headache although he was found to be tachycardic upon arrival to the emergency department. This tachycardia was not captured on EKG, patient does take metoprolol at home which he has been without for the last 5 to 6 days. Patient was given a dose of oral metoprolol in the ED and his heart rate has come down to around 80sinus rhythm. We will trend troponins, monitor on telemetry, obtain echocardiogram and cardiology consult. Laceration/skin tear right upper extremity: Laceration repaired in ED with sutures, Steri-Strips on skin tear. ED provider reported wound was contaminated with dirt, it was extensively irrigated patient was given a gram of Ancef in the ED continue with oral Keflex for now. History of Guillain-Vo with neuropathy: Patient takes gabapentin 1800 mg p.o. twice daily continue this medication, reports he is no longer on steroids. CAD on chronic anticoagulationEliquis: Continue Eliquis, monitor on telemetry and trend troponins. Patient follows with Dr. Huggins Hyperlipidemia: Continue statin DVT PPX: Continue Eliquis 2.5 p.o. twice daily Code status: Full Discharge Plan: Home Plan to discharge in: 24 Hours - Advance Directives Does patient have a Living Will: No Does patient have a Durable POA for Healthcare: Yes - Code Status/Comfort Care Code Status Assessed: Yes (Full code ) Critical Care: No Time Spent Managing Pts Care (In Minutes): 70
[2021-10-25] MEDS ORDERED: NA CHLORIDE 0.9% 500 ML ONE ×2 (02:12→08:22)
[2021-10-25] MEDS ORDERED: ONDANSETRON 4 MG/2 ML VIAL IV PRN (03:13)
[2021-10-25 03:52] VITALS: BMI 24.5
[2021-10-25 05:11] LABS: Troponin High Sensitivity 44.3 pg/mL (<58.9)
[2021-10-25 05:34] LABS: Thyroid Stimulating Hormone 4.26 uIU/mL (0.360-3.740)
[2021-10-25] MEDS: CEPHALEXIN 250 MG CAP PO SCH ×2 (06:00→12:00)
[2021-10-25] MEDS ORDERED: METOPROLOL TAR 25 MG TAB PO SCH (06:00)
[2021-10-25] MEDS ORDERED: CEPHALEXIN 250 MG CAP ONE ×2 (06:26→13:50)
[2021-10-25] MEDS ORDERED: METOPROLOL TAR 25 MG TAB ONE ×2 (06:26→16:35)
[2021-10-25] MEDS ORDERED: NA CHLORIDE 0.9% 500 ML IV ONE (07:47)
--- NOTE | 2021-10-25 07:54 | EKG ---
Test Date: 2021-10-24 Test Time: 23:20:45 Personal Injury Law Specialist: ALYCE MEASUREMENT RESULTS: Intervals: Rate: 84 FL: 210 QRSD: 80 QT: 380 QTc: 449 [place]: P: 52 FL: 210 QRS: 18 T: 38 INTERPRETIVE STATEMENTS: Sinus rhythm with 1st degree AV block Low voltage QRS Septal infarct, age undetermined Abnormal ECG Compared to ECG 03/23/2018 01:40:38 First degree AV block now present Low QRS voltage now present Myocardial infarct finding now present Sinus tachycardia no longer present Electronically Signed On 10-25-21 07:53:10 CDT by Patel Cook
[2021-10-25] MEDS ORDERED: PNEUMOCOCCAL VACCINE 0.5 ML IMVAC ONE (08:00)
[2021-10-25] MEDS ORDERED: GABAPENTIN 300 MG CAP ONE (08:21)
[2021-10-25] MEDS ORDERED: APIXABAN 5 MG TABLET ONE (08:21)
[2021-10-25] MEDS ORDERED: GABAPENTIN 300 MG CAP PO SCH (09:00)
[2021-10-25] MEDS ORDERED: APIXABAN 2.5 MG TABLET PO SCH (09:00)
--- NOTE | 2021-10-25 11:41 | RAD REPORT ---
EXAM DESCRIPTION: RAD - Elbow Right 3 View - 10/25/2021 1:51 am COMPARISON: None. TECHNIQUE: XR ELBOW 3 VIEWS 10/25/2021 1:00 AM CDT FINDINGS: There is no fracture. Joint spaces are preserved. Soft tissues are unremarkable. IMPRESSION: No acute osseous findings. Electronically signed by: Patrick Wells MD 10/25/2021 3:02 AM CDT Due to temporary technical issues with the PACS/Fluency reporting system, reports are being signed by the in house radiologists without review as a courtesy to insure prompt reporting. The interpreting radiologist is fully responsible for the content of the report.
--- NOTE | 2021-10-25 12:21 | RAD REPORT ---
EXAM DESCRIPTION: RAD - Hand Right 3 View - 10/25/2021 1:51 am CLINICAL HISTORY: Hand injury COMPARISON: None. TECHNIQUE: XR HAND 3 OR MORE VIEWS 10/25/2021 1:00 AM CDT FINDINGS: There is no fracture. There are [id number] degenerative changes throughout the IP royce ints. Soft tissues are unremarkable. IMPRESSION: No acute osseous findings. Electronically signed by: Patrick Wells MD 10/25/2021 2:40 AM CDT Due to temporary technical issues with the PACS/Fluency reporting system, reports are being signed by the in house radiologists without review as a courtesy to insure prompt reporting. The interpreting radiologist is fully responsible for the content of the report.
--- NOTE | 2021-10-25 12:26 | RAD REPORT ---
EXAM DESCRIPTION: RAD - Chest Single View - 10/24/2021 10:55 pm CLINICAL HISTORY: Dizziness. COMPARISON: None. TECHNIQUE: Single view AP chest radiograph(s). FINDINGS: The lungs are clear. No pulmonary infiltrate or edema identified. No pleural effusion. N o pneumothorax. Nonenlarged cardiomediastinal silhouette. No significant osseous abnormality. IMPRESSION: No acute cardiopulmonary abnormality identified by radiograph. Electronically signed by: Izzy Acharya MD 10/24/2021 11:21 PM CDT Due to temporary technical issues with the PACS/Fluency reporting system, reports are being signed by the in house radiologists without review as a courtesy to insure prompt reporting. The interpreting radiologist is fully responsible for the content of the report.
--- NOTE | 2021-10-25 12:48 | RAD REPORT ---
EXAM DESCRIPTION: CT - Head Brain Wo Cont - 10/25/2021 6:53 am CLINICAL HISTORY: 85 years Male dizziness COMPARISON: MRI brain dated 03/15/2021 TECHNIQUE: Contiguous axial images of the brain were obtained without the administration of intraven ous contrast.This exam was performed according to our departmental dose-optimization program which in cludes use of Automated Exposure Control, adjustment of the mA and/or kV according to patient size an d/or use of iterative reconstruction technique. DLP: 827 mGy*cm FINDINGS: Brain: No acute intracranial hemorrhage. No extra-axial collection. No mass effect or susie iation. Small calcified focus in the right brachium pontis. Prominence of the sulci and cisterns. C onfluent periventricular and subcortical white matter hypodensity is noted. Vascular calcifications. Ventricles: Allowing for underlying cerebral volume loss, ventricular size appears within normal limi ts. Globes and orbits: No acute abnormality. Prior cataract surgery. Bones: No acute osseous finding Paranasal sinuses: Paranasal sinuses are clear. Mastoid air cells: Well pneumatized. Soft tissues: Within normal limits IMPRESSION: 1. No acute hemorrhage, hydrocephalus or herniation. 2. Cerebral volume loss and chronic small vessel ischemic changes. Consider MRI brain for further rebecca luation. Electronically signed by: Pedro Ruiz DO 10/24/2021 11:42 PM CDT Due to temporary technical issues with the PACS/Fluency reporting system, reports are being signed by the in house radiologists without review as a courtesy to insure prompt reporting. The interpreting radiologist is fully responsible for the content of the report.
--- NOTE | 2021-10-25 14:13 | ECHO ---
HEIGHT: 5 ft 6 in WEIGHT: 152 lb 0.14 oz DATE OF STUDY: 10/25/[address]: Diego Hernandez NP 2-DIMENSIONAL: YES M.MODE: YES DOPPLER: YES COLOR FLOW: YES TDS: NO PORTABLE: YES DEFINITY: NO BUBBLE STUDY: NO DIAGNOSIS: SYNCOPE CARDIAC HISTORY: CATHERIZATION: SURGERY: PROSTHETIC VALVE: PACEMAKER: MEASUREMENTS (cm) DIASTOLIC (NORMALS) SYSTOLIC (NORMALS) IVSd 1.1 (0.6-1.2) LA Diam 3.2 (1.9-4.0) LVEF 60-65% LVIDd 4.1 (3.5-5.7) LVIDs 3.0 (2.0-3.5) %FS 27% LVPWd 1.2 (0.6-1.2) Ao Diam 2.9 (2.0-3.7) 2 DIMENSIONAL ASSESSMENT: RIGHT ATRIUM: NORMAL LEFT ATRIUM: NORMAL RIGHT VENTRICLE: NORMAL LEFT VENTRICLE: NORMAL TRICUSPID VALVE: NORMAL MITRAL VALVE: PULMONIC VALVE: AORTIC VALVE: PERICARDIAL EFFUSION: NONE AORTIC ROOT: NORMAL LEFT VENTRICULAR WALL MOTION: NORMAL DOPPLER/COLOR FLOW: SEE BELOW. COMMENTS: NORMAL LEFT VENTRICULAR EJECTION FRACTION 60-65%. NORMAL WALL MOTION. MILD AORTIC, MITRAL AND PULMONARY REGURGITATION. DIASTOLIC DYSFUNCTION. TECHNOLOGIST: Kelly POPE
[2021-10-25] MEDS ORDERED: METOPROLOL TAR 25 MG TAB PO ONE (15:28)
[2021-10-25 17:47] VITALS: TEMP 98.9
[2021-10-25 17:59] VITALS: BP 119/68; O2SAT 96
--- NOTE | 2021-10-25 19:02 | P.DS ---
Admission Date: 10/25/21 Discharge Date: 10/25/21 Disposition: ROUTINE DISCHARGE Discharge Condition: GOOD Reason for Admission: syncope/near-syncope Consultations: Cardiology - Dr. Cook Brief History of Present Illness: 85-year-old male history of CAD, Guillain-Vo, hypertension, hyperlipidemia, neuropathy presents emergency department for dizziness, syncope. He reports that he was getting up off of his tractor when he became suddenly dizzy and fell backwards sustaining a laceration to his arm. His reports he has been having these episodes over the course of the last couple of months, he is also been out of his metoprolol for the past 5 to 6 days. Patient denies history of atrial fibrillation he is currently in sinus rhythm with a rate of about 90 although when he arrived to the emergency department he was tachycardic with a heart rate in the 120s, EKG was not obtained at that time unsure if this was sinus tachycardia or atrial fibrillation. In the ED, patient with mild CASANDRA, mild leukocytosis, negative troponin/ekg/CXR/ct head and c-spine. Patient had laceration repair to the right arm with large amounts of irrigation as there was dirt present in the wounds he was given a gram of Ancef and his home dose of metoprolol which he has been without for the past few days and ED provider wishes to admit under observation for further evaluation and management of syncope, fall. Problem List Syncope, fall Laceration/skin tear right upper extremity History of Guillain-Vo with neuropathy CAD and tachyarrhythmia on chronic anticoagulationEliquis Hypertension Hyperlipidemia Hospital Course: Patient was initially noted to have high heart rate on presentation. He was evaluated by CT head, echo, telemetry monitoring, troponins, which were all within normal limits. His kidney function was noted to be slightly decreased from prior lab values. He was given gentle IV fluids and resumed on his home medications. Cardiology was consulted. Dr. Cook recommended no further inpatient work up was needed from a cardiac standpoint. He can have close follow up in the office and proceed with any further testing at that time. Patient was deemed stable for discharge home. He was noted to occasionally have increased heart rate. He ambulated well with PT. Recommended to use walker when ambulating. Continue outpatient PT three times a week as scheduled already. Suspect this episode was secondary to his tachyarrhythmia/ ?afib, in combination with slight dehydration that lead to his fall. He reported decreased urine output over last ~24hrs. No difficulty/pain with urinating. He was given a 500cc bolus of normal saline and later was able to void without issue. He ran out of his metoprolol ~5-7 days ago. Prescription sent for his metoprolol as last prescribed by his Early Childhood Specialist - 50mg in AM, 25mg in evening. Follow up with PCP within 1 week Follow up with Cardiology in next coming weeks He was noted to have abrasions/lacerations on his arms. These were cleaned in the ER. Patient is discharged with 7 more days of antibiotics. Follow up with PCP Vital Signs/Physical Exam: Temp Pulse Resp BP Pulse Ox 98.9 F 91 H 15 119/68 95 10/25/21 17:45 10/25/21 17:58 10/25/21 17:58 10/25/21 17:58 10/25/21 11:51 General: Alert, In no apparent distress, Oriented x3 HEENT: EOMI, Sclerae nonicteric Neck: Supple, No LAD Respiratory: Clear to auscultation bilaterally, Normal air movement, Diminished (bilaterally at bases) Cardiovascular: No edema, Regular rate/rhythm Gastrointestinal: Soft and benign, Non-distended, No tenderness Musculoskeletal: No contractures, No tenderness Integumentary: Other (laceration on arm, dressing in place) Neurological: Normal speech, Normal strength at 5/5 x4 extr, Normal affect Laboratory Data at Discharge: WBC 12.40 K/uL (4.3-10.9) H 10/24/21 23:28 Hgb 12.6 g/dL (13.6-17.9) L 10/24/21 23:28 Hct 38.9 % (39.6-49.0) L 10/24/21 23:28 Plt Count 304 K/uL (152-406) 10/24/21 23:28 PT 15.7 SECONDS (9.5-12.5) H 10/24/21 23:28 INR 1.42 10/24/21 23:28 Sodium 140 mmol/L (136-145) 10/24/21 23: Potassium 4.5 mmol/L (3.5-5.1) 10/24/21 23:28 BUN 22 mg/dL (7-18) H 10/24/21 23:28 Creatinine 1.50 mg/dL (0.55-1.3) H 10/24/21 23:28 Glucose 138 mg/dL (74-106) H 10/24/21 23:28 Magnesium 1.9 mg/dL (1.8-2.4) 10/24/21 23:28 Total Bilirubin 0.6 mg/dL (0.2-1.0) 10/24/21 23:28 AST 34 U/L (15-37) 10/24/21 23:28 ALT 27 U/L (12-78) 10/24/21 23:28 Alkaline Phosphatase 99 U/L (45-117) 10/24/21 23:28 Home Medications: Acetaminophen [Tylenol*] 325 mg PO Q4H PRN tab 03/26/18 Albuterol Neb [Proventil 0.083% Neb Soln] 2.5 mg NEB [id number] amp 03/26/18 Atorvastatin Calcium [Lipitor] 80 mg PO BEDTIME tab 03/26/18 Bisacodyl [Dulcolax*] 10 mg VA DAILY PRN supp 03/26/18 Cetirizine HCl [Zyrtec*] 5 mg PO DAILY PRN tablet 03/26/18 Cholecalciferol (Vitamin D3) [Vitamin D 1000 Iu Tab*] 1,000 unit PO DAILY tab 0 03/26/18 Docusate/Senna [Senokot-S*] 2 tab PO BEDTIME PRN tab 03/26/18 Enoxaparin Sodium [Lovenox 40 MG INJ*] 40 mg SQ DAILY 5 PM syr 03/26/18 Ensure Enlive 360 ml PO BID can 03/26/18 Gabapentin [Neurontin*] 1,200 mg PO TID cap 03/26/18 Hydrocodone 5/APAP 325 [[place] 5/325*] 1 tab PO Q8H PRN tab 03/26/18 Ipratropium Neb [Atrovent*] 0.5 mg IH [id number] amp 03/26/18 Lidocaine 4% Patch [Lidoderm 5% Patch*] 1 patch TOP DAILY patch 03/26/18 Magnesium Oxide [Mag 0X*] 800 mg PO DAILY tab 03/26/18 Melatonin [Melatonin*] 6 mg PO BEDTIME PRN PRN tablet 03/26/18 Ondansetron [Zofran (Odt)*] 4 mg PO Q6H PRN tab 03/26/18 Pantoprazole [Protonix Tab*] 40 mg PO ACB tab 03/26/18 Sodium Chloride Tab [Sodium Chloride*] 2 gm PO BIDWM tab 03/26/18 Tamsulosin [Flomax*] 0.4 mg PO DAILY cap 03/26/18 bisacodyL [Dulcolax*] 5 mg PO DAILY PRN tab 03/26/18 methocarbamoL [Robaxin*] 500 mg PO Q8HP PRN tab 03/26/18 traMADol HCL [Ultram*] 50 mg PO Q4H PRN tab 03/26/18 Cephalexin [Keflex] 500 mg PO Q6HR 7 Days #28 cap 10/25/21 Metoprolol Tartrate [Lopressor] 25 mg PO SEECOM 30 Days #90 tab 10/25/21 New Medications: Cephalexin [Keflex] 500 mg PO Q6HR 7 Days #28 cap Metoprolol Tartrate [Lopressor] 25 mg PO SEECOM 30 Days #90 tab Physician Discharge Instructions: Patient was initially noted to have high heart rate on presentation. He was evaluated by CT head, echo, telemetry monitoring, troponins, which were all within normal limits. His kidney function was noted to be slightly decreased from prior lab values. He was given gentle IV fluids and resumed on his home medications. Cardiology was consulted. Dr. Cook recommended no further inpatient work up was needed from a cardiac standpoint. He can have close follow up in the office and proceed with any further testing at that time. Patient was deemed stable for discharge home. He was noted to occasionally have increased heart rate. He ambulated well with PT. Recommended to use walker when ambulating. Continue outpatient PT three times a week as scheduled already. Suspect this episode was secondary to his tachyarrhythmia/ ?afib, in combination with slight dehydration that lead to his fall. He reported decreased urine output over last ~24hrs. No difficulty/pain with urinating. He was given a 500cc bolus of normal saline and later was able to void without issue. He ran out of his metoprolol ~5-7 days ago. Prescription sent for his metoprolol as last prescribed by his Early Childhood Specialist - 50mg in AM, 25mg in evening. Follow up with PCP within 1 week Follow up with Cardiology in next coming weeks He was noted to have abrasions/lacerations on his arms. These were cleaned in the ER. Patient is discharged with 7 more days of antibiotics. Follow up with PCP Diet: AHA Activity: Ad prem Followup: Tariq Boucher MD [Primary Care Provider] - Time spent managing pt's care (in minutes): 45
[2021-10-25] MEDS ORDERED: ATORVASTATIN 40 MG TAB PO SCH (21:00)
--- NOTE | 2021-10-28 07:28 | CON ---
Date of Consultation: 10/25/2021 Reason For Consultation: Syncope. History Of Present Illness: Mr. Chao is an 85-year-old male, has a history of hypertension, dyslipi demia, paroxysmal atrial fibrillation, and neuropathy; came in with sudden episode of syncope that oc curred when he was standing up. He denied any nausea, vomiting, diaphoresis, PND, orthopnea, pedal e ar, or palpitation. He denied any fever or chills. Past Medical History: Positive for atrial fibrillation, hypertension, and dyslipidemia. Allergies: LEVAQUIN, CODEINE, AND FLU VACCINE. Review of Systems: Negative. Social History: Negative. Family History: Noncontributory. Medications: At home include metoprolol, Eliquis, gabapentin, prednisone, and Crestor. Physical Examination: Vital Signs: Stable. He is afebrile. HEENT: Negative. Neck: Supple. No bruit, lymphadenopathy, JVD, or thyromegaly. Chest: Clear to auscultation and percussion. Cardiac: Revealed regular rhythm and rate. No murmurs, gallops, or rubs. Abdomen: Benign. Extremities: Revealed no clubbing, cyanosis, or edema. Diagnostic Data: Include normal echo, normal chest x-ray, normal EKG, normal CT of the head. Impression And Plan: Syncope, most likely secondary to orthostatic hypotension. Workup so far is ne gative including echocardiogram, chest x-ray, EKG, and CT scan. I am comfortable with him going home on his home medication including metoprolol, Crestor, Eliquis, gabapentin, and prednisone. I will m angel an arrangement for him to have an outpatient event monitor to rule out sick sinus syndrome. MILE/MILENA Voice ID: [id number] Report ID: [id number]
== END 2021-10-25 17:40 | disposition home or self-care (01) ==
LOC: ER 19:33 → ERHOLD 10-25 01:43
PROVIDERS: ADMIT Hospitalist; ATTEND Hospitalist
PROC: 0HQBXZZ Repair Right Upper Arm Skin, External Approach (ICD-10-PCS; principal; 2021-10-24)
DX: R55 Syncope and collapse (principal); S51.011A Laceration without foreign body of right elbow, initial encounter; S61.411A Laceration without foreign body of right hand, initial encounter; W19.XXXA Unspecified fall, initial encounter; Y93.H9 Activity, other involving exterior property and land maintenance, building and construction; Y92.89 Other specified places as the place of occurrence of the external cause; N17.9 Acute kidney failure, unspecified; R00.0 Tachycardia, unspecified; R42 Dizziness and giddiness; D72.829 Elevated white blood cell count, unspecified; I25.10 Atherosclerotic heart disease of native coronary artery without angina pectoris; G61.0 Guillain-Barre syndrome; I10 Essential (primary) hypertension; E78.5 Hyperlipidemia, unspecified; G89.29 Other chronic pain; M54.9 Dorsalgia, unspecified; G62.9 Polyneuropathy, unspecified; G95.29 Other cord compression; Z20.822 Contact with and (suspected) exposure to COVID-19; Z79.01 Long term (current) use of anticoagulants; Z79.52 Long term (current) use of systemic steroids; Z79.899 Other long term (current) drug therapy; Z88.5 Allergy status to narcotic agent; Z88.7 Allergy status to serum and vaccine; Z88.3 Allergy status to other anti-infective agents; Z95.5 Presence of coronary angioplasty implant and graft; Z82.3 Family history of stroke; Z82.62 Family history of osteoporosis; Z82.49 Family history of ischemic heart disease and other diseases of the circulatory system
CPT/HCPCS: 36415; 70450; 71045; 80048; 80076; 83735; 83880; 84439; 84443; 84484; 85025; 85610; 87811; 93005; 93306; 96361; 96374; 97116; 97161; 99284; G0378; J0690; J7040

== ENCOUNTER 2021-10-27 17:16 | Emergency (ER) | payer OTHER ==
--- OUTSIDE RECORDS SUMMARY | 2021-10-27 17:20 | XMS REPORT | Continuity of Care Document ---
:1935 Author Organization [facility] t Address [address] [place] [address] Dr. [address]. [address] [place] [address] Care Team Providers Name Role Phone MARIA GUADALUPE LAMBERT Primary Care Physician Unavailable LOUIS RODRIGUEZ Attending Clinician Unavailable Nurse, [facility] Attending Clinician Unavailable Louis Church Attending Clinician MARIA GUADALUPE LAMBERT Attending Clinician Unavailable Alma Dunn Attending Clinician JARET CHAVEZ Attending Clinician Unavailable Doctor Unassigned, [place] Attending Clinician Unavailable Sarah Judd MD Attending Clinician SARAH JUDD Attending Clinician Unavailable Maria Guadalupe Lambert MD Attending Clinician Lab, Adc Fam Pob I Attending Clinician Unavailable Payers Payer Name Policy Type Policy Number Effective Date Expiration Date S [facility] MEDICARE PART A \T\ [id number] 2000 B 00:00:00 MAZON [id number] 2020 BENEFITS 00:00:00 Problems Condition Condition Condition Status Onset Resolution Last Treating Co mments Source Name Details Category Date Date Treatment Clinician Date 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 05-05 22:36:28 l erosis in erosis in 00:00: Herm sly tun[place]ak tun[place]ak 00 artery artery (disorder) (disorder) Active 05/05/2015 Problem 02/10/2021 [facility] Essential Essential Problem Active 2021-02-10 Memoria hypertensi hypertensi 05-05 22:36:28 l on on 00:00: [place] (disorder) (disorder) 00 Active 05/05/2015 Problem 02/10/2021 [facility] Hyperlipid Hyperlipi Problem Active 2021-02-10 Memoria emia demia 05-05 22:36:28 l (disorder) (disorder) 00:00: Ck rmann Active 00 05/05/2015 Problem 02/10/2021 [facility] Transient Transient Problem Active 2021-02-10 Memoria ischemic ischemic 05-05 22:36:28 l attack attack 00:00: [place] (disorder) (disorder) 00 Active 05/05/2015 Problem 02/10/2021 [facility] Neuropathy Neuropath Problem Active 2021-02-10 Memoria (disorder) y 03-28 22:36:28 l (disorder) 00:00: Kevin n Active 00 03/28/2015 Problem 02/10/2021 [facility] Prediabete Prediabete Disease Active U inés s s 2-07 ity of 00:00: [place] [address] Medical Branch Lumbar Lumbar Problem Active 2021-02-10 Turner nereida radiculopa radiculopa 22:36:28 l thy thy [place] (disorder) (disorder) Active Problem 02/10/2021 [facility] Cervical Cervical Problem Active 2021-02-10 Memoria radiculopa radiculopa 22:36:28 l thy thy [place] (disorder) (disorder) Active Problem 02/10/2021 [facility] Confusiona Problem Active 2021-02-10 M emoria l state Confusiona 22:36:28 l (disorder) l state Elaine nn (disorder) Active Problem 02/10/2021 [facility] Fracture Fracture Problem Active 2021-02-10 Memoria of rib of rib 22:36:28 l (disorder) (disorder) Ck rmann Active Problem 02/10/2021 [facility] Knee pain Knee pain Problem Active 2021-02-10 Memoria (finding) (finding) 22:36:28 l Active [place] Problem 02/10/2021 [facility] Recurrent Problem Active 2021-02-10 Me moria falls Recurrent 22:36:28 l (finding) falls [place] (finding) Active Problem 02/10/2021 [facility] Rib pain Rib pain Problem Active 2021-02-10 Memoria (finding) (finding) 22:36:28 l Active [place] Problem 02/10/2021 [facility] Amnesia Amnesia Problem Active 2021-02-10 Me moria (finding) (finding) 22:36:28 l Active [place] Problem 02/10/2021 [facility] Myoclonus Myoclonus Problem Resolve 2016-0 2021-02-10 2021-02-10 Memoria (finding) (finding) d - 22:36:28 22:36:28 l Resolved 00:00: [place] 09/28/2015 00 Problem 02/10/2021 [facility] Allergies, [...] Medical s Branch LEVOFLOX DRUG Active Anaphylaxis 0 Uni vers ACIN INGREDI 2-25 ity of [...] Cigarette Smoker Universi ty of tobacco use [place] [facility] History [facility] o f Alcohol Frequency [place] [facility] History [facility] University o f Alcohol Std [place] [facility] Drinks Branch History [facility] o f Alcohol Binge [place] [facility] Branch Exposure to 2021-10-14 2021-10-24 Not sure University of SARS-CoV-2 00:00:00 19:11:00 [place] [facility] (event) Branch Tobacco use and 2021-10-24 2021-10-24 Smokeless tobacco Un iversity of exposure 00:00:00 00:00:00 non-user [facility] Alcohol intake 2021-10-24 2021-10-24 Current drinker Unive rsity of 00:00:00 00:00:00 of alcohol [place] [facility] (finding) [place] Alcohol Comment 2014-12-22 2014-12-22 Occasional wine Univ ersity of 00:00:00 00:00:00 drinker [facility] Sex Assigned At [birth year] Universit y of 00:00:00 00:00:00 [facility] Smoking Status Start Date Stop Date Source Ex-smoker 2021-10-24 00:00:00 2021-10-24 00:00:[address] [facility] Medications Ordered Filled Start Stop Current Ordering Indication Dosage Frequency Signature Comments Components Source Medication Medication Date Date Medication? Clinician (SIG) Name Name gabapentin Yes 900mg Take 900 Un sabiha 300 mg 3-16 mg by ity of capsule 10:49: mouth 3 [place] [address] (three) Medical times [place] daily. DULoxetine Yes See Memoria 30 mg oral 9-05 Instructio l delayed 20:18: ns, TAKE Kevin n release 00 ONE capsule CAPSULE BY MOUTH DAILY, # 30 unknown unit, 5 Refill(s), Pharmacy: [facility] [id number], 162.56, cm, 04/06/20 9:15:00 [employer]OCKSTITCH, Height, 74.091, kg, 04/06/20 9:15:00 [employer]LL[employer] LOCKSTITCH, Weight DULoxetine Yes See Memoria 30 mg oral 3-04 Instructio l delayed 19:26: ns, TAKE Kevin n release 00 ONE capsule CAPSULE BY MOUTH DAILY, # 30 unknown unit, 5 Refill(s), Pharmacy: [facility] [id number], 162.56, cm, 04/06/20 9:15:00 [employer]ITCH, Height, 74.091, kg, 04/06/20 9:15:00 [employer]LL[employer]OS[employer] LOCKSTITCH, Weight gabapentin Yes See Memoria 600 MG Oral - Instructio l Tablet 15:42: ns, 1/2 [place] [Neurontin] 00 tab PO TID 90 day, # 180 tab, 1 Refill(s), Pharmacy: [place] [id number], 162.56, cm, 04/06/20 9:15:00 [employer], Height, 74.091, kg, 04/06/20 9:15:00 [employer]ITCH, Weight gabapentin 2019-03 Yes 600 mg = 1 M emoria 600 MG Oral 1-21 tab, PO, l Tablet 01:47: TID, # 270 Elaine nn [Neurontin] 00 tab, 1 Refill(s), Pharmacy: [facility] 256, 162.56, cm, 01/27/20 11:01:00 [employer], Height, 72.727, kg, 01/27/20 11:01:00 [employer], Weight apixaban 2019-03 Yes 2.5mg Take 2.5 Univ ers (ELIQUIS) 0-12 mg by ity of 2.5 mg 14:20: mouth 2 [place] tablet 35 (two) Medical times Branch daily. losartan 25 2019-03 Yes 25mg Take 25 mg Univers mg tablet 0-12 by mouth ity of 14:20: daily. [address] rosuvastati 2019-03 Yes 20mg Take 20 mg Univers n 20 mg 0-12 by mouth ity of tablet 14:20: at [place] [address] bedtime. Medical Branch gabapentin 2019-03 Yes 900mg Take 900 Un sabiha 300 mg 0-12 mg by ity of capsule 14:20: mouth 3 [place] [address] (three) Medical times Branch daily. apixaban 2019-03 Yes 2.5mg Take 2.5 Univ ers (ELIQUIS) 0-12 mg by ity of 2.5 mg 14:20: mouth 2 [place] tablet 35 (two) Medical times Branch daily. losartan 25 2019-03 Yes 25mg Take 25 mg Univers mg tablet 0-12 by mouth ity of 14:20: daily. [address] Branch rosuvastati 2019-03 Yes 20mg Take 20 mg Univers n 20 mg 0-12 by mouth ity of tablet 14:20: at [place] [address] bedtime. Medical Branch gabapentin 2019-03 Yes 900mg Take 900 Un sabiha 300 mg 0-12 mg by ity of capsule 14:20: mouth 3 [place] 35 (three) Medical times Branch daily. apixaban 2019-03 Yes 2.5mg Take 2.5 Univ ers (ELIQUIS) 0-12 mg by ity of 2.5 mg 14:20: mouth 2 [place] tablet 35 (two) Medical times Branch daily. losartan 25 2019-03 Yes 25mg Take 25 mg Univers mg tablet 0-12 by mouth ity of 14:20: daily. [place] [address] Medical Branch rosuvastati 2019-03 Yes 20mg Take 20 mg Univers n 20 mg 0-12 by mouth ity of tablet 14:20: at [place] [address] bedtime. Medical Branch gabapentin 2019-03 Yes 900mg Take 900 Un sabiha 300 mg 0-12 mg by ity of capsule 14:20: mouth 3 [place] [address] (three) Medical times Branch daily. apixaban 2019-03 Yes 2.5mg Take 2.5 Univ ers (ELIQUIS) 0-12 mg by ity of 2.5 mg 14:20: mouth 2 [place] tablet 35 (two) Medical times Branch daily. losartan 25 2019-03 Yes 25mg Take 25 mg Univers mg tablet 0-12 by mouth ity of 14:20: daily. [address] Branch rosuvastati 2019-03 Yes 20mg Take 20 mg Univers n 20 mg 0-12 by mouth ity of tablet 14:20: at [place] [address] bedtime. Medical Branch gabapentin 2019-03 Yes 900mg Take 900 Un sabiha 300 mg 0-12 mg by ity of capsule 14:20: mouth 3 [place] [address] (three) Medical times Branch daily. apixaban 2019-03 Yes 2.5mg Take 2.5 Univ ers (ELIQUIS) 0-12 mg by ity of 2.5 mg 14:20: mouth 2 [place] tablet 35 (two) Medical times Branch daily. losartan 25 2019-03 Yes 25mg Take 25 mg Univers mg tablet 0-12 by mouth ity of 14:20: daily. [place] [address] Medical Branch rosuvastati 2019-03 Yes 20mg Take 20 mg Univers n 20 mg 0-12 by mouth ity of tablet 14:20: at [place] [address] bedtime. Medical Branch DULoxetine Yes See Memoria 30 mg oral 7-29 Instructio l delayed 22:57: ns, TAKE Kevin n release 00 ONE capsule CAPSULE BY MOUTH DAILY, # 30 unknown unit, 6 Refill(s), Pharmacy: [facility] [id number], 165.1, cm, 07/30/19 9:05:00 CDT, Height, 75.909, kg, 07/30/19 9:05:00 CDT, Weight TAMSULOSIN 2020-0 Yes [id number] TAKE ONE Univers 0.4 mg 24 7-29 CAPSULE BY ity of hr capsule 00:00: MOUTH DAILY Medical Branch TAMSULOSIN 2020-0 Yes [id number] TAKE ONE Univers 0.4 mg 24 7-29 CAPSULE BY ity of hr capsule 00:00: DAILY Medical Branch TAMSULOSIN 2020-0 Yes [id number] TAKE ONE Univers 0.4 mg 24 7-29 CAPSULE BY ity of hr capsule 00:00: DAILY Medical Branch TAMSULOSIN 2020-0 Yes [id number] TAKE ONE Univers 0.4 mg 24 7-29 CAPSULE BY ity of hr capsule 00:00: DAILY Medical Branch TAMSULOSIN 2020-0 Yes [id number] TAKE ONE Univers 0.4 mg 24 7-29 CAPSULE BY ity of hr capsule 00:00: DAILY Medical Branch gabapentin 2018-03 Yes See Memoria 600 MG Oral 1-22 Instructio l Tablet 20:41: ns, 1.5 [place] [Neurontin] 45 tab PO TID, # 540 tab, 2 Refill(s), Pharmacy: [place] [address] DUTASTERIDE 2019-0 Yes [id number] TAKE ONE Univers 0.5 mg 7-10 CAPSULE BY ity of capsule 00:00: DAILY Medical Branch DUTASTERIDE 2019-0 Yes [id number] TAKE ONE Univers 0.5 mg 7-10 CAPSULE BY ity of capsule 00:00: DAILY Medical Branch DUTASTERIDE 2019-0 Yes [id number] TAKE ONE Univers 0.5 mg 7-10 CAPSULE BY ity of capsule 00:00: DAILY Medical Branch DUTASTERIDE 2019-0 Yes [id number] TAKE ONE Univers 0.5 mg 7-10 CAPSULE BY ity of capsule 00:00: DAILY Medical Branch DUTASTERIDE 2019-0 Yes [id number] TAKE ONE Univers 0.5 mg 7-10 CAPSULE BY ity of capsule 00:00: DAILY Medical Branch gabapentin [id number] Yes See Memoria 600 MG Oral 6-28 Instructio l Tablet 13:51: ns, 1.5 [place] [Neurontin] 03 tab PO TID, # 540 tab, 2 Refill(s), Pharmacy: [place] [id number] Vital Signs Vital Name Observation Time Observation Value Comments Source Systolic blood 2021-10-25 00:11:00 117 mm[Hg] Univer sity of pressure [place] [facility] Diastolic blood 2021-10-25 00:11:00 86 mm[Hg] Unive rsity of pressure [place] [facility] Heart rate 2021-10-25 00:11:00 150 /min Universi ty of [place] [facility] Body temperature 2021-10-25 00:11:00 37.22 Maribell Univ ersity of [place] [facility] Respiratory rate 2021-10-25 00:11:00 16 /min Univ ersity of [place] [facility] Body weight 2021-10-25 00:11:00 77.111 kg Universi ty of [place] [facility] BMI 2021-10-25 00:11:00 28.29 kg/m2 Universi ty of [place] [facility] Oxygen saturation in 2021-10-25 00:11:00 94 /min University of Arterial blood by [facility] Pulse oximetry Branch Systolic blood 2021-05-14 19:48:00 124 mm[Hg] Univer sity of pressure [place] [facility] Diastolic blood 2021-05-14 19:48:00 80 mm[Hg] Unive rsity of pressure [place] [facility] Heart rate 2021-05-14 19:48:00 77 /min Universi ty of [place] [facility] Body temperature 2021-05-14 19:48:00 36.56 Maribell Univ ersity of [place] [facility] Respiratory rate 2021-05-14 19:48:00 20 /min Univ ersity of [place] [facility] Oxygen saturation in 2021-05-14 19:48:00 92 /min University of Arterial blood by [place] [employer] [facility] Pulse oximetry Branch Body height 2021-05-14 17:35:00 167.6 cm Universi ty of [place] [facility] Body weight 2021-05-14 17:35:00 76.204 kg Universi ty of [place] [facility] BMI 2021-05-14 17:35:00 27.12 kg/m2 Universi ty of [place] [facility] Systolic blood 2020-12-13 18:20:00 114 mm[Hg] Univer sity of pressure [place] [facility] Diastolic blood 2020-12-13 18:20:00 69 mm[Hg] Unive rsity of pressure [place] [facility] Body height 2020-12-13 18:20:00 165.1 cm [facility] Body weight 2020-12-13 18:20:00 73.029 kg [facility] BMI 2020-12-13 18:20:00 26.79 kg/m2 [facility] Systolic (mm Hg) 2020-11-09 14:54:00 Turner rial [place] Diastolic (mm Hg) 2020-11-09 14:54:00 Mem orial [place] Heart Rate 2020-11-09 14:54:00 Memorial [place] Respitory Rate 2020-11-09 14:54:00 Memori al [place] Systolic (mm Hg) 2020-04-06 15:15:00 Turner rial [place] Diastolic (mm Hg) 2020-04-06 15:15:00 Mem orial [place] Heart Rate 2020-04-06 15:15:00 Memorial [place] Respitory Rate 2020-04-06 15:15:00 Memori al [place] Height 2020-04-06 15:15:00 162.56 cm [facility] [place] Weight 2020-04-06 15:15:00 [facility] [place] BMI Calculated 2020-04-06 15:15:00 Memori al [place] Systolic (mm Hg) 2020-02-25 20:24:00 Turner rial [place] Diastolic (mm Hg) 2020-02-25 20:24:00 Mem orial [place] Heart Rate 2020-02-25 20:24:00 [facility] [place] Respitory Rate 2020-02-25 20:24:00 Memori al [place] Height 2020-02-25 20:24:00 165.1 cm [facility] [place] Weight 2020-02-25 20:24:00 [facility] [place] BMI Calculated 2020-02-25 20:24:00 Memori al [place] Systolic (mm Hg) 2020-01-27 16:46:00 Turner rial [place] Diastolic (mm Hg) 2020-01-27 16:46:00 Mem orial [place] Heart Rate 2020-01-27 16:46:00 [facility] [place] Respitory Rate 2020-01-27 16:46:00 Memori al [place] Height 2020-01-27 16:46:00 162.56 cm [facility] [place] Weight 2020-01-27 16:46:00 [facility] [place] BMI Calculated 2020-01-27 16:46:00 Memori al [place] Temperature Oral (F) 2019-07-30 14:05:00 98.6 F [facility] [place] Systolic (mm Hg) 2019-07-30 14:05:00 Turner rial [place] Diastolic (mm Hg) 2019-07-30 14:05:00 Mem orial [place] Heart Rate 2019-07-30 14:05:00 [facility] [place] Respitory Rate 2019-07-30 14:05:00 Memori al [place] Height 2019-07-30 14:05:00 165.1 cm [facility] [place] Weight 2019-07-30 14:05:00 [facility] [place] BMI Calculated 2019-07-30 14:05:00 Memori al [place] Systolic (mm Hg) 2019-05-07 16:32:00 Turner rial [place] Diastolic (mm Hg) 2019-05-07 16:32:00 Mem orial [place] Heart Rate 2019-05-07 16:32:00 Memorial [place] Respitory Rate 2019-05-07 16:32:00 Memori al [place] Height 2019-05-07 16:32:00 165.1 cm Memorial [place] Weight 2019-05-07 16:32:00 [facility] [place] BMI Calculated 2019-05-07 16:32:00 Memori al [place] Systolic (mm Hg) 2019-01-29 20:06:00 Turner rial [place] Diastolic (mm Hg) 2019-01-29 20:06:00 Mem orial [place] Heart Rate 2019-01-29 20:06:00 [facility] [place] Respitory Rate 2019-01-29 20:06:00 Memori al [place] Height 2019-01-29 20:06:00 165.1 cm Memorial [place] Weight 2019-01-29 20:06:00 [facility] [place] BMI Calculated 2019-01-29 20:06:00 Memori al [place] Weight 2018-07-30 14:21:00 [facility] [place] BMI Calculated 2018-07-30 14:21:00 Memori al [place] Heart Rate 2018-07-30 14:21:00 Memorial [place] Height 2018-07-30 14:21:00 167.64 cm [facility] [place] Systolic (mm Hg) 2018-07-30 14:21:00 Turner rial [place] Diastolic (mm Hg) 2018-07-30 14:21:00 Mem orial [place] Procedures Procedure Date / Time Performing Clinician Source Performed XR LUMBAR SPINE 2 VW 2021-05-14 19:01:00 Alma Mccarthy [facility] XR KNEE <3 VW RIGHT 2021-05-14 19:01:00 Alma Mccarthy [facility] XR SHOULDER 2+ VW RIGHT 2021-05-14 19:01:00 Alma Mccarthy [facility] CT HEAD WO CONTRAST 2021-05-14 18:42:14 Alma Mccarthy [facility] CONSENT/REFUSAL FOR 2021-05-14 17:22:17 Doctor Unassigned, No [facility] DIAGNOSIS AND TREATMENT Name [facility] NOTICE OF PRIVACY 2021-05-14 17:21:58 Doctor Unassigned, No [facility] PRACTICES Name [facility] Encounters Start End Encounter Admission Attending Care Care Encounter Source Date/Time Date/Time Type Type Clinicians Facility Department ID 2021-10-24 2021-10-24 Outpatient R JENNIFER [facility] [id number] Univers 20:00:00 20:00:00 [facility] 2021-10-24 2021-10-24 Nurse Nurse, [facility] [id number] Univers 19:15:00 19:35:00 [facility] [id number] [facility] [id number] John as LEOLA?BLEA [id number] Az ruth ann [address] MEDICAL OFFICE BUILDING 2021-10-24 2021-10-24 Outpatient R [facility] [id number] Univers 19:15:00 19:15:00 [id number] [facility] 2021-10-24 2021-10-24 Outpatient R JENNIFER [facility] [id number] Univers 19:15:00 19:15:00 [facility] 2021-05-23 2021-05-23 Outpatient R BREANA [facility] [id number] Univers 11:00:00 11:00:00 MARIA GUADALUPE [id number] [facility] 2021-05-23 2021-05-23 Outpatient R BREANA [facility] [id number] Univers 11:00:00 11:00:00 MARIA GUADALUPE [facility] 2021-05-14 2021-05-14 [facility] [id number] Univers 11:36:00 14:58:00 Alma CHOU [id number] i ty of [id number] [id number] [facility] 084 [place] 2021-05-14 2021-05-14 Outpatient R [facility] [id number] Univers 11:15:00 11:15:00 [id number] [facility] 2021-05-14 2021-05-14 [facility] [id number] Univers 11:15:00 [facility]:15:[facility]-14 2021-05-14 [facility] ERT [id number] Univers 10:40:00 10:40:00 [facility] 2021-05-14 2021-05-14 Letter Doctor AVELINA [id number] Univers 00:00:00 00:00:00 (Out) Unassigned, JOSE ALBERTO [id number] ity of [place] [facility] [id number] John as [id number] [facility] 044 [place] 2021-05-14 2021-05-14 Orders Doctor AVELINA [id number] Univers 00:00:00 00:00:00 Only Unassigned, JOSE ALBERTO [id number] ity of [place] [facility] [id number] John as [phone] [facility] 009 Branch 2021-02-08 2021-02-08 Ambulatory nullFlavo MNA [id number] Memoria 16:15:00 16:15:00 Pre-Reg r Neurology 20 l [place] 2020-12-13 2020-12-13 Office [facility] [id number] Univers 13:45:00 14:28:[address] [facility] [id number] it y of [place] [id number] John as LEOLA?BLEA [id number] Az ruth ann [address] MEDICAL OFFICE BUILDING 2020-12-13 2020-12-13 Outpatient R OTIS, [facility] [id number] Univers 13:45:00 14:28:50 [facility] 2020-11-09 2020-11-10 Outpatient nullFlavo MNA [id number] Memoria 15:00:00 04:59:59 r Neurology 19 l Pop [place] 2020-10-26 2020-10-28 Outside nullFlavo MNA [id number] Memoria 19:39:10 04:59:59 Medical r Neurology 24 l Records Pop [place] 2020-10-17 2020-10-19 Outside nullFlavo MNA [id number] Memoria 14:33:42 04:59:59 Medical r Neurology 23 l Records Pop [place] 2020-10-03 2020-10-05 Outside nullFlavo MNA [id number] Memoria 14:05:31 04:59:59 Medical r Neurology 22 l Records Pop [place] 2020-09-12 2020-09-14 Outside nullFlavo MNA [id number] Memoria 13:15:26 04:59:59 Medical r Neurology 21 l Records Pop [place] 2020-09-01 2020-09-03 Outside nullFlavo MNA [id number] Memoria 21:41:20 04:59:59 Medical r Neurology 20 l Records [place] 2020-08-12 2020-08-14 Outside nullFlavo MNA [id number] Memoria 23:48:44 04:59:59 Medical r Neurology 19 l Records [place] 2020-07-11 2020-07-11 Ambulatory nullFlavo MNA [id number] Memoria 15:00:00 15:00:00 Pre-Reg r Neurology 18 l [place] 2020-06-20 2020-06-22 Outside nullFlavo MNA [id number] Memoria 14:09:53 04:59:59 Medical r Neurology 18 l Records [place] 2020-06-12 2020-06-14 Outside nullFlavo MNA [id number] Memoria 20:48:48 04:59:59 Medical r Neurology 17 l Records Pop [place] 2020-05-23 2020-05-25 Outside nullFlavo MNA [id number] Memoria 20:20:15 04:59:59 Medical r Neurology 16 l Records Pop [place] 2020-05-11 2020-05-13 Outside nullFlavo MNA [id number] Memoria 14:57:14 05:59:59 Medical r Neurology 15 l Records Pop [place] 2020-05-11 2020-05-12 Between nullFlavo MNA [id number] Memoria 19:26:29 19:26:29 Visit r Neurology 17 l Pop [place] 2020-04-11 2020-04-13 Outside nullFlavo MNA [id number] Memoria 21:31:30 05:59:59 Medical r Neurology 14 l Records Pop [place] 2020-04-06 2020-04-07 Outpatient nullFlavo MNA [id number] Memoria 15:00:00 05:59:59 r Neurology 17 l Pop [place] 2020-03-30 2020-04-01 Outside nullFlavo MNA [id number] Memoria 18:38:14 05:59:59 Medical r Neurology 13 l Records Pop [place] 2020-02-25 2020-02-26 Outpatient nullFlavo MNA [id number] Memoria 20:00:00 05:59:59 r Neurology 16 l Pop [place] 2020-01-27 2020-01-28 Outpatient nullFlavo MNA [id number] Memoria 16:45:00 05:59:59 r Neurology 15 l Pop [place] 2020-01-17 2020-01-19 Outside nullFlavo MNA [id number] Memoria 14:53:42 05:59:59 Medical r Neurology 11 l Records Pop [place] 2019-12-29 2019-12-31 Outside nullFlavo MNA [id number] Memoria 14:56:04 04:59:59 Medical r Neurology 10 l Records [place] 2019 2019-12-22 Outside nullFlavo MNA [id number] Memoria 16:12:08 04:59:59 Medical r Neurology 09 l Records [place] 2019-12-22 2019-12-22 Telephone [facility] [id number] 00:00:00 00:00:00 Maria Guadalupe [facility] [id number] [place] [id number] Professio [phone] [place] [address] [address] 2019 2019 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, [facility] [id number] 14:33:07 14:38:53 Visit [facility] [id number] [place] [id number] Professio [phone] [place] [address] Office [address] One 2019 2019 Office [facility] [id number] 14:04:23 14:19:23 Visit Maria Guadalupe [facility] [id number] [place] [id number] Professio [phone] [place] [address] Office [address] One 2019-12-01 2019-12-03 Outside nullFlavo MNA [id number] Memoria 15:09:41 04:59:59 Medical r Neurology 08 l Records [place] 2019-11-22 2019-11-24 Outside nullFlavo MNA [id number] Memoria 19:18:01 04:59:59 Medical r Neurology 07 l Records [place] 2019-11-02 2019-11-02 Ambulatory nullFlavo MNA [id number] Memoria 14:45:00 14:45:00 Pre-Reg r Neurology 14 l [place] 2019-11-02 2019-11-02 Ambulatory nullFlavo MNA [id number] Memoria 14:45:00 14:45:00 Pre-Reg r Neurology 13 l [place] 2019-07-30 2019-07-31 Outpatient nullFlavo MNA [id number] Memoria 14:15:00 04:59:59 r Neurology 11 l Pop [place] 2019-05-07 2019-05-08 Outpatient nullFlavo MNA [id number] Memoria 17:00:00 05:59:59 r Neurology 12 l Pop [place] 2019-01-29 2019-01-30 Outpatient nullFlavo MNA [id number] Memoria 19:45:00 05:59:59 r Neurology 10 l Pop [place] 2019-01-19 2019-01-19 Ambulatory nullFlavo MNA [id number] Memoria 19:00:00 19:00:00 Pre-Reg r Neurology 09 l Pop [place] 2018-11-03 2018-11-03 Ambulatory nullFlavo MNA [id number] Memoria 14:15:00 14:15:00 Pre-Reg r Neurology 08 l Pop [place] 2018-07-30 2018-07-31 Outpatient nullFlavo MNA [id number] Memoria 14:15:00 04:59:59 r Neurology 07 l Pop [place] 2018-06-18 2018-06-18 Outpatient MHIE MHIE [id number] Memoria 16:00:00 16:00:00 06 john Cuco 2018-06-02 2018-06-02 Outpatient IE IE [id number] Memoria 08:30:00 08:30:00 05 john [place] 2018-04-15 2018-04-17 Outside nullFlavo MNA [id number] Memoria 20:22:00 05:59:59 Medical r Neurology 05 l Records Pop [place] 2018-04-10 2018-04-12 Outside nullFlavo MNA [id number] Memoria 19:36:00 05:59:59 Medical r Neurology 04 l Mar [place] 2018-03-23 2018-03-25 Outside nullFlavo MNA [id number] Memoria 20:14:00 05:59:59 Medical r Neurology 03 l Mar [place] 2018-03-14 2018-03-16 Outside nullFlavo MNA [id number] Memoria 16:20:00 05:59:59 Medical r Neurology 02 l Mar [place] 2018-02-04 2018-02-04 Ambulatory nullFlavo MNA [id number] Memoria 15:45:00 15:45:00 Pre-Reg r Neurology 04 l Pop [place] 2017-12-23 2017-12-23 Ambulatory nullFlavo MNA [id number] Memoria 14:00:00 14:00:00 Pre-Reg r Neurology 01 l Pop [place] 2017-11-05 2017-11-05 Outpatient IE IE [id number] Memoria 10:30:00 10:30:00 03 john [place] 2017-11-05 2017-11-05 Outpatient IE IE [id number] Memoria 10:30:00 10:30:00 02 john [place] 2017-06-24 2017-06-24 Outpatient IE IE [id number] Memoria 11:30:00 11:30:00 00 john [place] Results This patient has no known results.
[2021-10-27 19:13] LABS: MCV 86.7 fL (80-100); RBC Red Blood Cell Count 4.38 M/uL (4.33-5.43)
[2021-10-27 19:14] LABS: Absolute Lymphocytes (CBC) 2.6 K/uL (0.7-4.9); Lymphocytes % 23.9 % (15.3-44.8); MPV 8.1 fL (7.6-11.3)
[2021-10-27 19:59] LABS: Potassium 4.2 mmol/L (3.5-5.1)
[2021-10-27] MEDS ORDERED: DOXYCYCLINE 100 MG CAP PO ONE (20:52)
--- NOTE | 2021-10-27 21:06 | ER ---
Nurse's Notes [facility] Name: Ranulfo Chao Age: 85 yrs Sex: Male : 1935 Arrival Date: 10/27/2021 Time: 17:18 Bed 12 Private MD: Diagnosis: Encounter for removal of sutures Presentation: 10/27 18:04 Chief complaint: Patient states: Pt reports he was seen in this ED on 10/25 for a right kb3 hand laceration. States his hand and arm are swollen today and the sutures have disappeared. Skin tear to right elbow noted. Coronavirus screen: Vaccine status: Patient reports being unvaccinated. At this time, the client does not indicate any symptoms associated with coronavirus-19. Ebola Screen: Patient negative for fever greater than or equal to 101.5 degrees Fahrenheit, and additional compatible Ebola Virus Disease symptoms Patient denies exposure to infectious person. Patient denies travel to an Ebola-affected area in the 21 days before illness onset. No symptoms or risks identified at this time. Initial Sepsis Screen: Does the patient meet any 2 criteria? No. Patient's initial sepsis screen is negative. Does the patient have a suspected source of infection? No. Patient's initial sepsis screen is negative. Risk Assessment: Do you want to hurt yourself or someone else? Patient reports no desire to harm self or others. Onset of symptoms was October 25, 2021 at 15:00. 18:04 Method Of Arrival: Wheelchair kb3 18:04 Acuity: SABINE 3 kb3 Triage Assessment: 18:10 General: Appears in no apparent distress. comfortable, Behavior is calm, cooperative. kb3 Pain: Denies pain. 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 Last tetanus immunization: unknown. - Social history:: Smoking status: Patient denies any tobacco usage or history of. Patient uses alcohol, street drugs. Screenin:15 Abuse screen: Denies threats or abuse. Denies injuries from another. Nutritional kb3 screening: No deficits noted. Tuberculosis screening: No symptoms or risk factors identified. Fall Risk Fall in past 12 months (25 points). Secondary diagnosis (15 points) dementia, impaired mobility, CVA, IV access (20 points). Ambulatory Aid- Crutches/Cane/Walker (15 pts). Gait- Weak (10 pts.). Mental Status- Oriented to own ability (0 pts). Total Franz Fall Scale indicates High Risk Score (45 or more points). Fall prevention measures have been instituted. Side Rails Up X 2 Placed Close to Nursing Station Frequent Obs/Assessments Occuring Family Present and informed to notify staff if the need to leave the bedside As available patient and family educated on Fall Prevention Program and Strategies. Assessment: 19:15 General: Assumed care of pt from day shift. Pt is AAO x4, no change in condition from 3 triage. Right hand wound is moist, scant amount of serous drainage noted. Right elbow wound bed is moist, small amount of serous drainage noted. Pt reports sutures from right hand wound were gone when he awoke this morning. Hand and forearm are mildly edematous with redness extending from hand to AC region. . Vital Signs: 18:04 Pulse 93; Resp 20; Temp 98.0; Pulse Ox 98% ; Weight 68.95 kg; Height 5 ft. 8 in. kb3 (172.72 cm); Pain 0/10; 21:15 BP 145 / 75; Pulse 82; Resp 18; Pulse Ox 99% ; Pain 2/10; kb3 18:04 Body Mass Index 23.11 (68.95 kg, 172.72 cm) 3 ED Course: 17:18 Patient arrived in ED. as 17:36 Leonid العلي PA is [facility] 17:36 Helen Jean-Baptiste MD is Attending Physician. [facility] 18:10 Triage completed. kb3 18:10 Arm band placed on left wrist. kb3 19:15 Patient has correct armband on for positive identification. Bed in low position. Call kb3 light in reach. Side rails up X2. Adult w/ patient. Warm blanket given. Pillow given. 19:15 No provider procedures requiring assistance completed. Inserted saline lock: 22 gauge kb3 in left antecubital area, using aseptic technique. Blood collected. 19:25 Huma Cabral, RN is Primary Nurse. em6 20:03 Vera Connolly, RN is Primary Nurse. kb3 21:15 IV discontinued, intact, bleeding controlled, No redness/swelling at site. kb3 Administered Medications: 20:46 Drug: Doxycycline 100 mg Route: PO; jb4 21:27 Follow up: Response: No adverse reaction kb3 Medication: 19:15 VIS not applicable for this client. kb3 Outcome: 21:05 Discharge ordered by . patricia 21:15 Discharged to home ambulatory. kb3 21:15 Condition: stable 21:15 Discharge instructions given to patient, Instructed on discharge instructions, follow up and referral plans. medication usage, Demonstrated understanding of instructions, follow-up care, medications. 21:37 Patient left the ED. kb3 Signatures: Leonid العلي PA PA jmm Martinez, Amelia as Bryson, James, RN RN jb4 Huma Cabral, RN RN em6 Vera Connolly, RN RN kb3
--- NOTE | 2021-10-27 21:06 | EDPHYS ---
Physician Documentation [facility] Name: Ranulfo Chao Age: 85 yrs Sex: Male : 1935 Arrival Date: 10/27/2021 Time: 17:18 Bed 12 Private MD: ED Physician Helen Jean-Baptiste HPI: 10/27 18:19 This 85 yrs old Male presents to ER via Wheelchair with complaints of Suture Removal, m Hand Swelling, arm swelling. 18:19 Is an 85-year-old male with history of hyperlipidemia, hypertension the presents [facility] emerged department with complaints of swelling to his right upper extremity. Family states that he awoke into this this morning. Patient recently had a suture repair of the right upper extremity and admission. Patient denies fever.. 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 Last tetanus immunization: unknown. - Social history:: Smoking status: Patient denies any tobacco usage or history of. Patient uses alcohol, street drugs. ROS: 18:19 Constitutional: Negative for fever, chills, and weight loss, Cardiovascular: Negative [facility] for chest pain, palpitations, and edema, Respiratory: Negative for shortness of breath, cough, wheezing, and pleuritic chest pain. 18:19 Skin: Positive for swelling. 18:19 All other systems are negative. Exam: 18:19 Constitutional: This is a well developed, well nourished patient who is awake, alert, jmm and in no acute distress. Head/Face: atraumatic. Eyes: EOMI, no conjunctival erythema appreciated ENT: Moist Mucus Membranes Neck: Trachea midline, Supple Chest/axilla: Normal chest wall appearance and motion. Cardiovascular: Regular rate and rhythm. No edema appreciated Respiratory: Normal respirations, no respiratory distress appreciated Abdomen/GI: Non distended Back: Normal ROM Skin: General appearance color normal 18:19 Musculoskeletal/extremity: Mild swelling noted to the right hand, no purulent drainage or erythema appreciated, nontender to palpation, full radial pulse, compartments are soft, neurovascular intact. 18:19 Skin: Healing laceration noted to the right hand, no purulent drainage, no erythema or induration, mild swelling is appreciated. 18:19 Neuro: Orientation: is normal, Mentation: is normal, Memory: is normal. 18:19 Psych: Behavior/mood is pleasant, cooperative. Vital Signs: 18:04 Pulse 93; Resp 20; Temp 98.0; Pulse Ox 98% ; Weight 68.95 kg; Height 5 ft. 8 in. kb3 (172.72 cm); Pain 0/10; 21:15 BP 145 / 75; Pulse 82; Resp 18; Pulse Ox 99% ; Pain 2/10; kb3 18:04 Body Mass Index 23.11 (68.95 kg, 172.72 cm) kb3 MDM: 18:19 Patient medically screened. [facility] 21:04 Data reviewed: vital signs, nurses notes. Counseling: I had a detailed discussion with patricia the patient and/or guardian regarding: the historical points, exam findings, and any diagnostic results supporting the discharge/admit diagnosis, the need for outpatient follow up, to return to the emergency department if symptoms worsen or persist or if there are any questions or concerns that arise at home. 21:04 ED course: Labs unremarkable. Patient does not have any signs of sepsis at this point m in time. An antibiotic was added and the family was given strict return precautions. Family understood and agrees plan of care.. 10/27 18: Order name: CBC with Diff; Complete Time: 19:15 [facility] 10/27 18:29 Order name: BMP; Complete Time: 20:05 [facility] 10/27 18: Order name: Lactate; Complete Time: 20:08 [facility] 10/27 18:29 Order name: Blood Culture Adult (2) [facility] 10/27 18:29 Order name: Saline Lock; Complete Time: 19:11 [facility] Administered Medications: 20:46 Drug: Doxycycline 100 mg Route: PO; jb4 21:27 Follow up: Response: No adverse reaction kb3 Disposition: 10/28 08:24 STAFF ATTESTATION STATEMENT: I was immediately available onsite in the emergency sd2 department for consultation in the care of this patient. I did not see or examine this patient. Helen Jean-Baptiste MD. Disposition Summary: 10/27/21 21:05 Discharge Ordered Location: Home [facility] Condition: Stable jm Diagnosis - Encounter for removal of sutures [facility] Followup: [facility] - With: Private Physician - When: As needed - Reason: Recheck today's complaints, Continuance of care, Re-evaluation by your physician Discharge Instructions: - Discharge Summary Sheet [facility] Forms: - Medication Reconciliation Form [facility] - Thank You Letter [facility] - Antibiotic Education [facility] - Prescription Opioid Use [facility] Prescriptions: - Doxycycline Hyclate 100 mg Oral Tablet - take 1 tablet by ORAL route every 12 hours; 20 tablet; Refills: 0, Product [facility] Selection Permitted Signatures: Dispatcher [employer] EDMS Leonid العلي PA PA jmm Bryson, James, RN RN jb4 Helen Jean-Baptiste MD MD sd2 Vera Connolly, RN RN kb3
[2021-10-27 23:39] VITALS: TEMP 98
[2021-10-27 23:41] VITALS: BP 145/75; O2SAT 99
== END 2021-10-27 21:37 | disposition home or self-care (01) ==
LOC: ER 17:16
DX: Z48.02 Encounter for removal of sutures (principal)
CPT/HCPCS: 36415; 80048; 83605; 85025; 87040; 99283

== ENCOUNTER 2022-01-15 10:24 | Emergency (ER) | payer OTHER ==
--- OUTSIDE RECORDS SUMMARY | 2022-01-15 10:28 | XMS REPORT | Continuity of Care Document ---
:1935 Author Organization [facility] t Address [address] [place] [address] Dr. [address] [place] [address] Care Team Providers Name Role Phone MARIA GUADALUPE TOUSSAINT Primary Care Physician Unavailable ALLEGRA DUBOSE Attending Clinician Unavailable Nurse, [facility] Attending Clinician Unavailable EbAllegra Serrato Attending Clinician Tariq Boucher Attending Clinician MARIA GUADALUPE TOUSSAINT Attending Clinician Unavailable Antonino Dunnya S Attending Clinician JARET CHAVEZ Attending Clinician Unavailable Doctor Unassigned, [place] Attending Clinician Unavailable Sarah Berg MD Attending Clinician SARAH BERG Attending Clinician Unavailable Fabi Lara Attending Clinician FABI BOB Attending Clinician Unavailable Maria Guadalupe Toussaint MD Attending Clinician Lab, Adc Fam Pob I Attending Clinician Unavailable Debi Csota Attending Clinician DEBI DUFF Attending Clinician Unavailable Ata Obando DO Attending Clinician ATA OBANDO Attending Clinician Unavailable ATA OBANDO Admitting Clinician Unavailable Payers Payer Name Policy Type Policy Number Effective Date Expiration Date S mervin MEDICARE PART A \T\ [id number] 2000 B 00:00:00 BETHANY [id number] 2020 BENEFITS 00:00:00 Problems Condition Condition Condition Status Onset Resolution Last Treating Co mments Source Name Details Category Date Date Treatment Clinician Date Acute Acute Disease Active Methodi cholecysti cholecysti -17 [facility] tis tis 00:00: Hospita 00 l 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 00:00: Hospita stenosis stenosis 00 l 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 04-06 st s with s with 00:00: Hospita radiculopa radiculopa 00 l thy, thy, lumbar lumbar region region 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 05-05 04:51:42 l erosis in erosis in 00:00: Ra heart [place] 00 artery artery (disorder) (disorder) Active 05/05/2015 Problem 10/26/2021 [facility] Essential Essential Problem Active 2021-10-26 Memoria hypertensi hypertensi 05-05 04:51:42 l on on 00:00: [place]uc[place] (disorder) (disorder) 00 Active 05/05/2015 Problem 10/26/2021 [facility] Hyperlipid Hyperlipi Problem Active 2021-10-26 Memoria emia demia 05-05 04:51:42 l (disorder) (disorder) 00:00: Ck morris Active 00 05/05/2015 Problem 10/26/2021 [facility] Transient Transient Problem Active 2021-10-26 Memoria ischemic ischemic 05-05 04:51:42 l attack attack 00:00: [place] (disorder) (disorder) 00 Active 05/05/2015 Problem 10/26/2021 [facility] Neuropathy Neuropath Problem Active 2021-10-26 Memoria (disorder) y 03-28 04:51:42 l (disorder) 00:00: Kevin vu Active 00 03/28/2015 Problem 10/26/2021 [facility] Prediabete Prediabete Disease Active U inés s s 2-07 ity of 00:00: [place] 00 Medical Branch Diplopia Diplopia Problem Active 2021-10-26 Memoria (disorder) (disorder) 04:51:42 l Active [place] Problem 10/26/2021 [facility] Muscle Muscle Problem Active 2021-10-26 Turner nereida pain pain 04:51:42 l (finding) (finding) Herm sly Active Problem 10/26/2021 [facility] 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 He rmann (disorder) (disorder) Active Problem 10/26/2021 [facility] Visual Visual Problem Active 2021-10-26 Turner nereida impairment impairment 04:51:42 l (disorder) (disorder) He rmann Active Problem 10/26/2021 [facility] Cervical Cervical Problem Active 2021-10-26 Memoria radiculopa radiculopa 04:51:42 l thy thy [place] (disorder) (disorder) Active Problem 10/26/2021 [facility] Lumbar Lumbar Problem Active 2021-10-26 Turner nereida radiculopa radiculopa 04:51:42 l thy thy [place] (disorder) (disorder) Active Problem 10/26/2021 [facility] Confusiona Confusion Problem Active 2021-10-26 Memoria l state al state 04:51:42 l (disorder) (disorder) Ck rmann Active Problem 10/26/2021 [facility] Fracture Fracture Problem Active 2021-10-26 Memoria of rib of rib 04:51:42 l (disorder) (disorder) Ck rmann Active Problem 10/26/2021 [facility] Knee pain Knee pain Problem Active 2021-10-26 Memoria (finding) (finding) 04:51:42 l Active [place] Problem 10/26/2021 [facility] Recurrent Recurrent Problem Active 2021-10-26 Memoria falls falls 04:51:42 l (finding) (finding) Herm sly Active Problem 10/26/2021 [facility] Rib pain Rib pain Problem Active 2021-10-26 Memoria (finding) (finding) 04:51:42 l Active [place] Problem 10/26/2021 [facility] Amnesia Amnesia Problem Active 2021-10-26 Me moria (finding) (finding) 04:51:42 l Active [place] Problem 10/26/2021 [facility] Lumbar Lumbar Disease Active Methodi disc disc st disease disease Hospita with with l radiculopa radiculopa thy thy 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 Myoclonus Problem Resolve 2021-10-26 2021-10-26 Memoria (finding) (finding) d 09-27 04:51:42 04:51:42 l Resolved 00:00: [place]uco 09/28/2015 00 Problem 10/26/2021 [facility] Allergies, Adverse Reactions, Alerts Allergy Allergy Status Severity Reaction(s) Onset Inactive Treating Comm ents Source Name Type Date Date Clinician 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 03-[address] [place] [address] Vaccines adverse 00:00: Syndrome Hospi ta reaction 00 l s to drug Codeine Propensi Active Other (See 2015-03 nausea Met hodi ty to Comments) 04-24 st adverse 00:00: Hospita reaction 00 l s to drug Levoflox Propensi Active Other (See 2015-03 hypotensi Methodi acin ty to Comments) 04-[address] adverse 00:00: Hospita reaction 00 l s to drug codeine codeine Active Moderate Eruption of 2015-03 M emoria skin 2-14 l (disorder) 00:00: Kevin n 00 levoFLOX levoFLOX [...] ity of 00:00: [place] 00 Medical Branch Family History Family Member Diagnosis Comments Start Date Stop Date Source Natural brother Emphysema [facility] Natural brother Heart disease [facility] Natural father Cerebral aneurysm Met [facility] Natural mother Emphysema [facility] Social History Social Habit Start Date Stop Date Quantity Comments Source History of Cigarette Smoker Universi ty of tobacco use [place] [facility] History SDOH University o f Alcohol Frequency [place] M [facility] History SDNY University o f Alcohol Std [place] Medical Drinks Branch History [facility] University o f Alcohol Binge [place] Medic al Branch Exposure to 2021-10-14 2021-10-24 Not sure University of SARS-CoV-2 00:00:00 19:11:00 [facility] [place] [facility] (event) Branch Tobacco use and 2021-10-24 2021-10-24 Smokeless tobacco Un iversity of exposure 00:00:00 00:00:00 non-user [facility] [place] [facility] Branch Cigarettes smoked 2018-03-26 2018-03-[address] current (pack per 00:00:00 00:00:00 Hospita l day) - Reported Cigarette 2018-03-26 2018-03-26 Christian pack-years 00:00:00 00:00:00 Hospital Alcohol intake 2018-03-26 2018-03-26 Current drinker of Me thodist 00:00:00 00:00:00 alcohol (finding) Hospita l Alcohol Comment 2018-02-27 2018-02-[address] 00:00:00 00:00:00 Hospital Sex Assigned At [birth year] [facility] 00:00:00 00:00:00 Hospital Smoking Status Start Date Stop Date Source Social History 2021-10-23 16:05:59 2021-10-23 16:05:59 [facility] Medications Ordered Filled Start Stop Current Ordering Indication Dosage Frequency Signature Comments Components Source Medication Medication Date Date Medication? Clinician (SIG) Name Name gabapentin Yes See Memoria 600 mg oral 7-19 Instructio l tablet 15:32: ns, TAKE [place] 00 ONE TABLET BY MOUTH THREE TIMES A DAY, # 270 tab, 1 Refill(s), Pharmacy: [facility] [id number], 162.56, cm, 04/18/21 14:08:00 MANAGER DIVISION, Height, 75, kg, 04/18/21 14:08:00 MANAGER DIVISION, Weight WheelChair Yes 1 Alondra magana 7-13 MISC, l 14:33: ONCALL, # [place] 00 1 ea, 0 Refill(s), 162.56, cm, 04/18/21 14:08:00 MANAGER DIVISION, Height, 75, kg, 04/18/21 14:08:00 MANAGER DIVISION, Weight baclofen 10 No 10 mg = 1 M emoria mg oral 7-13 tab, PO, l tablet 14:27: BID, # 60 Kevin n 00 tab, 2 Refill(s), Pharmacy: [facility] [id number], 162.56, cm, 04/18/21 14:08:00 MANAGER DIVISION, Height, 75, kg, 04/18/21 14:08:00 MANAGER DIVISION, Weight gabapentin Yes 900mg Take 900 Un sabiha 300 mg 3-16 mg by ity of capsule 10:49: mouth 3 [place] 44 (three) Medical times Branch daily. predniSONE Yes 5 mg = 1 Mem oria 5 mg oral 2-09 tab, PO, l tablet 20:54: Daily, # [place] 00 30 tab, 3 Refill(s), Pharmacy: [facility] [id number], 162.56, cm, 04/18/21 14:08:00 MANAGER DIVISION, Height, 75, kg, 04/18/21 14:08:00 MANAGER DIVISION, Weight DULoxetine Yes See Memoria 30 mg oral 9-05 Instructio l delayed 20:18: ns, TAKE Kevin n release 00 ONE capsule CAPSULE BY MOUTH DAILY, # 30 unknown unit, 5 Refill(s), Pharmacy: [facility] [id number], 162.56, cm, 04/06/20 9:15:00 MANAGER DIVISION, Height, 74.091, kg, 04/06/20 9:15:00 MANAGER DIVISION, Weight DULoxetine 0 Yes See Memoria 30 mg oral 9-05 Instructio l delayed 20:18: ns, TAKE Kevin n release 00 ONE capsule CAPSULE BY MOUTH DAILY, # 30 unknown unit, 5 Refill(s), Pharmacy: [facility] [id number], 162.56, cm, 04/06/20 9:15:00 MANAGER DIVISION, Height, 74.091, kg, 04/06/20 9:15:00 MANAGER DIVISION, Weight DULoxetine 0 Yes See Memoria 30 mg oral 3-04 Instructio l delayed 19:26: ns, TAKE Kevin n release 00 ONE capsule CAPSULE BY MOUTH DAILY, # 30 unknown unit, 5 Refill(s), Pharmacy: [facility] [id number], 162.56, cm, 04/06/20 9:15:00 MANAGER DIVISION, Height, 74.091, kg, 04/06/20 9:15:00 MANAGER DIVISION, Weight DULoxetine 2020-0 Yes See Memoria 30 mg oral 3-04 Instructio l delayed 19:26: ns, TAKE Kevin n release 00 ONE capsule CAPSULE BY MOUTH DAILY, # 30 unknown unit, 5 Refill(s), Pharmacy: [facility] [id number], 162.56, cm, 04/06/20 9:15:00 MANAGER DIVISION, Height, 74.091, kg, 04/06/20 9:15:00 MANAGER DIVISION, Weight gabapentin 2020-0 Yes See Memoria 600 MG Oral - Instructio l Tablet 15:42: ns, 1/2 [place] [Neurontin] 00 tab PO TID 90 day, # 180 tab, 1 Refill(s), Pharmacy: [facility], 162.56, cm, 04/06/20 9:15:00 MANAGER DIVISION, Height, 74.091, kg, 04/06/20 9:15:00 MANAGER DIVISION, Weight gabapentin 2020-0 Yes See Memoria 600 MG Oral - Instructio l Tablet 15:42: ns, 1/2 [place] [Neurontin] 00 tab PO TID 90 day, # 180 tab, 1 Refill(s), Pharmacy: [facility] 256, 162.56, cm, 04/06/20 9:15:00 MANAGER DIVISION, Height, 74.091, kg, 04/06/20 9:15:00 MANAGER DIVISION, Weight gabapentin 2019-03 Yes 600 mg = 1 M emoria 600 MG Oral 1-21 tab, PO, l Tablet 01:47: TID, # 270 Elaine nn [Neurontin] 00 tab, 1 Refill(s), Pharmacy: [facility] 256, 162.56, cm, 01/27/20 11:01:00 MANAGER DIVISION, Height, 72.727, kg, 01/27/20 11:01:00 MANAGER DIVISION, Weight gabapentin 2019-03 Yes 600 mg = 1 M emoria 600 MG Oral 1-21 tab, PO, l Tablet 01:47: TID, # 270 Elaine nn [Neurontin] 00 tab, 1 Refill(s), Pharmacy: [facility] 256, 162.56, cm, 01/27/20 11:01:00 MANAGER DIVISION, Height, 72.727, kg, 01/27/20 11:01:00 MANAGER DIVISION, Weight apixaban 2019-03 Yes 2.5mg Take 2.5 Univ ers (ELIQUIS) 0-12 mg by ity of 2.5 mg 14:20: mouth 2 [place] tablet 35 (two) Medical times Branch daily. losartan 25 2019-03 Yes 25mg Take 25 mg Univers mg tablet 0-12 by mouth ity of 14:20: daily. [address] Branch rosuvastati 2019-03 Yes 20mg Take 20 mg Univers n 20 mg 0-12 by mouth ity of tablet 14:20: at [place] [address] bedtime. Medical Branch gabapentin 2019-03 Yes 900mg Take 900 Un sabiha 300 mg 0-12 mg by ity of capsule 14:20: mouth 3 [place] [address] (three) Medical times Branch daily. apixaban 2019-03 Yes 2.5mg Take 2.5 Univ ers (ELIQUIS) 0-12 mg by ity of 2.5 mg 14:20: mouth 2 [place] tablet 35 (two) Medical times Branch daily. losartan 25 2019-03 Yes 25mg Take 25 mg Univers mg tablet 0-12 by mouth ity of 14:20: daily. [address] rosuvastati 2019-03 Yes 20mg Take 20 mg Univers n 20 mg 0-12 by mouth ity of tablet 14:20: at [place] [address] bedtime. Medical Branch gabapentin 2019-03 Yes 900mg Take 900 Un sabiha 300 mg 0-12 mg by ity of capsule 14:20: mouth 3 [place] [address] (three) Medical times Branch daily. apixaban 2019-03 Yes 2.5mg Take 2.5 Univ ers (ELIQUIS) 0-12 mg by ity of 2.5 mg 14:20: mouth 2 [place] tablet 35 (two) Medical times Branch daily. losartan 25 2019-03 Yes 25mg Take 25 mg Univers mg tablet 0-12 by mouth ity of 14:20: daily. [address] Branch rosuvastati 2019-03 Yes 20mg Take 20 mg Univers n 20 mg 0-12 by mouth ity of tablet 14:20: at [place] [address] bedtime. Medical Branch gabapentin 2019-03 Yes 900mg Take 900 Un sabiha 300 mg 0-12 mg by ity of capsule 14:20: mouth 3 [place] [address] (three) Medical times Branch daily. apixaban 2019-03 Yes 2.5mg Take 2.5 Univ ers (ELIQUIS) 0-12 mg by ity of 2.5 mg 14:20: mouth 2 [place] tablet 35 (two) Medical times Branch daily. losartan 25 2019-03 Yes 25mg Take 25 mg Univers mg tablet 0-12 by mouth ity of 14:20: daily. [address] Branch rosuvastati 2019-03 Yes 20mg Take 20 mg Univers n 20 mg 0-12 by mouth ity of tablet 14:20: at [place] [address] bedtime. Medical Branch gabapentin 2019-03 Yes 900mg Take 900 Un sabiha 300 mg 0-12 mg by ity of capsule 14:20: mouth 3 [place] [address] (three) Medical times Branch daily. apixaban 2019-03 Yes 2.5mg Take 2.5 Univ ers (ELIQUIS) 0-12 mg by ity of 2.5 mg 14:20: mouth 2 [place] tablet 35 (two) Medical times Branch daily. losartan 25 2019-03 Yes 25mg Take 25 mg Univers mg tablet 0-12 by mouth ity of 14:20: daily. [address] Branch rosuvastati 2019-03 Yes 20mg Take 20 mg Univers n 20 mg 0-12 by mouth ity of tablet 14:20: at [place] [address] bedtime. Medical Branch DULoxetine Yes See Memoria 30 mg oral 7-29 Instructio l delayed 22:57: ns, TAKE Kevin n release 00 ONE capsule CAPSULE BY MOUTH DAILY, # 30 unknown unit, 6 Refill(s), Pharmacy: [facility] [id number], 165.1, cm, 07/30/19 9:05:00 CDT, Height, 75.909, kg, 07/30/19 9:05:00 CDT, Weight DULoxetine Yes See Memoria 30 mg oral 7-29 Instructio l delayed 22:57: ns, TAKE Kevin n release 00 ONE capsule CAPSULE BY MOUTH DAILY, # 30 unknown unit, 6 Refill(s), Pharmacy: [facility] [id number], 165.1, cm, 07/30/19 9:05:00 CDT, Height, 75.909, kg, 07/30/19 9:05:00 CDT, Weight TAMSULOSIN 2020-0 Yes [id number] TAKE ONE Univers 0.4 mg 24 7-29 CAPSULE BY ity of hr capsule 00:00: MOUTH DAILY Medical Branch TAMSULOSIN 2020-0 Yes [id number] TAKE ONE Univers 0.4 mg 24 7-29 CAPSULE BY ity of hr capsule 00:00: MOUTH DAILY Medical Branch TAMSULOSIN 2020-0 Yes [id number] TAKE ONE Univers 0.4 mg 24 7-29 CAPSULE BY ity of hr capsule 00:00: MOUTH DAILY Medical Branch TAMSULOSIN 2020-0 Yes [id number] TAKE ONE Univers 0.4 mg 24 7-29 CAPSULE BY ity of hr capsule 00:00: MOUTH DAILY Medical Branch TAMSULOSIN 2020-0 Yes [id number] TAKE ONE Univers 0.4 mg 24 7-29 CAPSULE BY ity of hr capsule 00:00: MOUTH DAILY Medical Branch gabapentin 2018- Yes See Memoria 600 MG Oral 1-22 Instructio l Tablet 20:41: ns, 1.5 [place] [Neurontin] 45 tab PO TID, # 540 tab, 2 Refill(s), Pharmacy: [place] [id number] gabapentin 2018-03 Yes See Memoria 600 MG Oral 1-22 Instructio l Tablet 20:41: ns, 1.5 [place] [Neurontin] 45 tab PO TID, # 540 tab, 2 Refill(s), Pharmacy: [place] [id number] DUTASTERIDE 2019- Yes [id number] TAKE ONE Univers 0.5 mg 7-10 CAPSULE BY ity of capsule 00:00: MOUTH DAILY Medical Branch DUTASTERIDE 2019- Yes [id number] TAKE ONE Univers 0.5 mg 7-10 CAPSULE BY ity of capsule 00:00: MOUTH DAILY Medical Branch DUTASTERIDE 2019-0 Yes [id number] TAKE ONE Univers 0.5 mg 7-10 CAPSULE BY ity of capsule 00:00: MOUTH DAILY Medical Branch DUTASTERIDE 2019-0 Yes [id number] TAKE ONE Univers 0.5 mg 7-10 CAPSULE BY ity of capsule 00:00: MOUTH DAILY Medical Branch DUTASTERIDE Yes [id number] TAKE ONE Univers 0.5 mg 7-10 CAPSULE BY ity of capsule 00:00: MOUTH [place] 00 DAILY Medical Branch gabapentin Yes See Memoria 600 MG Oral 6-28 Instructio l Tablet 13:51: ns, 1.5 [place] [Neurontin] 03 tab PO TID, # 540 tab, 2 Refill(s), Pharmacy: [place] [id number] gabapentin Yes See Memoria 600 MG Oral 6-28 Instructio l Tablet 13:51: ns, 1.5 [place] [Neurontin] 03 tab PO TID, # 540 tab, 2 Refill(s), Pharmacy: [place] [id number] aspirin Yes 81mg QD Take 81 mg Meth hanane (ECOTRIN) 1-[address] 81 MG 13:23: daily. Hospita enteric 24 l coated tablet tamsulosin Yes .4mg QD Take 0.4 Met hodi (FLOMAX) 1-[address] 0.4 mg 13:23: mouth Hospita capsule,ext 24 daily. l ended release 24hr CYANOCOBALA Yes Take by Met cuco MIN, [address] VITAMIN 13:23: Hospita B-12, 24 l (VITAMIN B-12 ORAL) dutasteride Yes .5mg QD Take 0.5 Me thodi (AVODART) 1-[address] 0.5 mg 13:23: mouth Hospita capsule 24 daily. l cholecalcif Yes QD Take by Met cuco mateo, 04-[address] vitamin D3, 13:23: daily. Hosp sami (VITAMIN D3 24 l ORAL) pantoprazol Yes 40mg QD Take 1 Meth hanane e 1-08 tablet (40 st (PROTONIX) 00:00: mg total) Ho spita 40 MG EC 00 by mouth l tablet daily. ipratropium Yes 3mL Q.[id number] Take 3 mL Methodi -albuterol 1-[id number] (DUO-NEB) 00:00: 3D nebulizati Ho spita 0.5-2.5 00 on every 6 l mg/mL (six) nebulizer hours while awake. naloxone 2019 Yes .2mg Infuse 0.5 Met hodi (NARCAN) 1-07 mL (0.[address] 0.4 mg/mL 00:00: total) Hospit a injection 00 into a l venous catheter once as needed for respirator y depression (as needed for RR rate 8 per minute). Vital Signs Vital Name Observation Time Observation Value Comments Source Systolic blood 2021-10-25 00:11:00 117 mm[Hg] [facility] Diastolic blood 2021-10-25 00:11:00 86 mm[Hg] Unive rs[facility] Heart rate 2021-10-25 00:11:00 150 /min [facility] Body temperature 2021-10-25 00:11:00 37.22 [facility] Respiratory rate 2021-10-25 00:11:00 16 /min [facility] 2021-10-25 00:11[facility]00 [facility] 2021-10-25 00:11:00 28.29 kg/m2 [facility] Oxygen saturation in 2021-10-25 00:11:00 94 /min University of Arterial blood by [facility] Pulse oximetry Branch Systolic blood 2021-05-14 19:48:00 124 mm[Hg] [facility]iver [facility] Diastolic blood 2021-05-14 19:48:00 80 mm[Hg] Unive rs[facility] Heart rate 2021-05-14 19:48:00 77 /min Universi [facility] Body temperature 2021-05-14 19:48:00 36.56 [facility] Respiratory rate 2021-05-14 19:48:00 20 /min Univ [facility] Oxygen saturation in 2021-05-14 19:48:00 92 /min University of Arterial blood by [facility] Pulse oximetry Branch Body height 2021-05-14 17:35:00 167.6 cm Universi ty [facility] Body weight 2021-05-14 17:35:00 76.204 kg Universi ty [facility] BMI 2021-05-14 17:35:00 27.12 [facility] Sy[facility] 2020-12-13 18:20:00 114 mm[Hg] Univer sity of pressure [facility] Diastolic blood 2020-12-13 18:20:00 69 mm[Hg] Unive rsity of pressure [facility] Body height 2020-12-13 18:20:00 165.1 cm [facility] Body weight 2020-12-13 18:20:00 73.029 kg [facility] BMI 2020-12-13 18:20:00 26.79 kg/m2 [facility] Systolic (mm Hg) 2021-10-23 16:05:00 Turner rial [place] Diastolic (mm Hg) 2021-10-23 16:05:00 Mem orial [place] Heart Rate 2021-10-23 16:05:00 Memorial [place] Respitory Rate 2021-10-23 16:05:00 Memori al [place] Systolic (mm Hg) 2021-09-19 14:03:00 Utrner rial [place] Diastolic (mm Hg) 2021-09-19 14:03:00 Mem orial [place] Heart Rate 2021-09-19 14:03:00 Memorial [place] Respitory Rate 2021-09-19 14:03:00 Memori al [place] Systolic (mm Hg) 2021-04-18 20:08:00 Turner rial [place] Diastolic (mm Hg) 2021-04-18 20:08:00 Mem orial [place] Heart Rate 2021-04-18 20:08:00 Memorial [place] Respitory Rate 2021-04-18 20:08:00 Memori al [place] Height 2021-04-18 20:08:00 162.56 cm [facility] Cuco Weight 2021-04-18 20:08:00 Memorial [place] BMI Calculated 2021-04-18 20:08:00 Memori al [place] Systolic (mm Hg) 2021-03-06 20:28:00 Turner rial [place] Diastolic (mm Hg) 2021-03-06 20:28:00 Mem orial [place] Heart Rate 2021-03-06 20:28:00 Memorial [place] Respitory Rate 2021-03-06 20:28:00 Memori al [place] Height 2021-03-06 20:28:00 165.1 cm Memorial [place] Weight 2021-03-06 20:28:00 [facility] [place] BMI Calculated 2021-03-06 20:28:00 Memori al [place] Systolic (mm Hg) 2020-11-09 14:54:00 Turner rial [place] Diastolic (mm Hg) 2020-11-09 14:54:00 Mem orial [place] Heart Rate 2020-11-09 14:54:00 Memorial [place] Respitory Rate 2020-11-09 14:54:00 Memori al [place] Systolic (mm Hg) 2020-04-06 15:15:00 Turner rial [place] Diastolic (mm Hg) 2020-04-06 15:15:00 Mem orial [place] Heart Rate 2020-04-06 15:15:00 Memorial [place] Respitory Rate 2020-04-06 15:15:00 Memori al [place] Height 2020-04-06 15:15:00 162.56 cm Memorial [place] Weight 2020-04-06 15:15:00 [facility] [place] BMI Calculated 2020-04-06 15:15:00 Memori al [place] Systolic (mm Hg) 2020-02-25 20:24:00 Turner rial [place] Diastolic (mm Hg) 2020-02-25 20:24:00 Mem orial [place] Heart Rate 2020-02-25 20:24:00 Memorial [place] Respitory Rate 2020-02-25 20:24:00 Memori al [place] Height 2020-02-25 20:24:00 165.1 cm [facility] [place] Weight 2020-02-25 20:24:00 Memorial [place] BMI Calculated 2020-02-25 20:24:00 Memori al [place] Systolic (mm Hg) 2020-01-27 16:46:00 Turner rial [place] Diastolic (mm Hg) 2020-01-27 16:46:00 Mem orial [place] Heart Rate 2020-01-27 16:46:00 [facility] [place] Respitory Rate 2020-01-27 16:46:00 Memori al [place] Height 2020-01-27 16:46:00 162.56 cm Memorial [place] Weight 2020-01-27 16:46:00 [facility] [place] BMI Calculated 2020-01-27 16:46:00 Memori al [place] Temperature Oral (F) 2019-07-30 14:05:00 98.6 F [facility] [place] Systolic (mm Hg) 2019-07-30 14:05:00 Turner rial [place] Diastolic (mm Hg) 2019-07-30 14:05:00 Mem orial [place] Heart Rate 2019-07-30 14:05:00 Memorial [place] Respitory Rate 2019-07-30 14:05:00 Memori al [place] Height 2019-07-30 14:05:00 165.1 cm [facility] [place] Weight 2019-07-30 14:05:00 Memorial [place] BMI Calculated 2019-07-30 14:05:00 Memori al [place] Systolic (mm Hg) 2019-05-07 16:32:00 Turner rial [place] Diastolic (mm Hg) 2019-05-07 16:32:00 Mem orial [place] Heart Rate 2019-05-07 16:32:00 [facility] [place] Respitory Rate 2019-05-07 16:32:00 Memori al [place] Height 2019-05-07 16:32:00 165.1 cm Memorial [place] Weight 2019-05-07 16:32:00 [facility] [place] BMI Calculated 2019-05-07 16:32:00 Memori al [place] Systolic (mm Hg) 2019-01-29 20:06:00 Turner rial [place] Diastolic (mm Hg) 2019-01-29 20:06:00 Mem orial [place] Heart Rate 2019-01-29 20:06:00 Memorial [place] Respitory Rate 2019-01-29 20:06:00 Memori al [place] Height 2019-01-29 20:06:00 165.1 cm [facility] [place] Weight 2019-01-29 20:06:00 [facility] [place] BMI Calculated 2019-01-29 20:06:00 Memori al [place] Weight 2018-07-30 14:21:00 [facility] [place] BMI Calculated 2018-07-30 14:21:00 Memori al [place] Heart Rate 2018-07-30 14:21:00 Memorial [place] Height 2018-07-30 14:21:00 167.64 cm [facility] [place] Systolic (mm Hg) 2018-07-30 14:21:00 Turner rial [place] Diastolic (mm Hg) 2018-07-30 14:21:00 Mem orial [place] Procedures Procedure Date / Time Performing Clinician Source Performed XR LUMBAR SPINE 2 VW 2021-05-14 19:01:00 Alma Mccarthy [facility] XR KNEE <3 VW RIGHT 2021-05-14 19:01:00 Alma Mccarthy [facility] XR SHOULDER 2+ VW RIGHT 2021-05-14 19:01:00 Alma Mccarthy [facility] CT HEAD WO CONTRAST 2021-05-14 18:42:14 Alma Mccarthy [facility] CONSENT/REFUSAL FOR 2021-05-14 17:22:17 Doctor Unassigned, No [facility] DIAGNOSIS AND TREATMENT Name [facility] NOTICE OF PRIVACY 2021-05-14 17:21:58 Doctor Unassigned, No [facility] PRACTICES Name [facility] Laminectomy for Natacha [place] decompression and exploration Plan of Care Planned Activity Planned Date Details Comments Source Future Scheduled 2022-01-12 HEPATITIS B VACCINES [facility] Test 05:39:19 (1 of 3 - 3-dose series) [code = HEPATITIS B VACCINES (1 of 3 - 3-dose series)] Future Scheduled 2022-01-12 COVID-19 VACCINE (#1) [facility] Test 05:39:19 [code = COVID-19 VACCINE (#1)] Future Scheduled 2022-01-12 SHINGLES VACCINES (1 [facility] Test 05:39:19 of 2) [code = SHINGLES VACCINES (1 of 2)] Future Scheduled 2022-01-12 65+ [facility] Test 05:39:19 VACCINE (1 - PCV) [code = 65+ PNEUMOCOCCAL VACCINE (1 - PCV)] Future Scheduled 2022-01-12 INFLUENZA VACCINE [facility] Test 05:39:19 [code = INFLUENZA VACCINE] Encounters Start End Encounter Admission Attending Care Care Encounter Source Date/Time Date/Time Type Type Clinicians Facility Department ID 2022-01-23 2022-01-23 Outpatient JUSTIN ANDERSON [id number] Jay 11:15:00 11:15:00 29 l Cuco 2021-10-24 2021-10-24 Outpatient Adán DUBOSE PRTIFFANI [facility] [id number] [facility] 20:00:00 20:00:00 AL[facility] 2021-10-24 2021-10-24 Nurse Nurse, [facility] 1.2.840.114 [id number] Univers 19:15:00 19:35:00 Visit Allegra Dubose [facility] 350.1.13.10 [facility] 4.2.7.2.686 John as LEOLA?BLE[phone] [facility] [address] MED[facility] OFF[facility] 2021-10-24 2021-10-24 Outpatient R [facility] [id number] [facility]:15[facility]00 [facility] 2021-10-24 Outpatient nullFlavo MNA [id number] Memoria 16:00:00 04:59:59 r Neurology 28 l Pop Cuc[place] 2021-10-23 2021-10-23 Outpatient NOHELIA BoucherMISCHER [id number] 11:00:00 23:59:59 Tariq 28 Sohail 2021-10-23 2021-10-23 Outpatient MHIE MHIE [id number] Memoria 11:00:00 11:00:00 28 l Cuc[place] 2021-10-16 2021-10-18 Outside nullFlavo MNA [id number] Memoria 13:21:22 04:59:59 Medical r Neurology 29 l Mar [place] 2021-10-16 2021-10-17 Outpatient MHMISCHER MHMISCHER [id number] 08:21:22 23:59:59 29 2021-10-05 2021-10-05 Ambulatory nullFlavo MNA [id number] Memoria 14:00:00 14:00:00 Pre-Reg r Neurology 27 l Pop [place] 2021-10-05 2021-10-05 Outpatient NOHELIA BoucherSCHBENEDICTO [id number] 09:00:00 09:00:00 Tariq 27 S[place] 2021-10-03 2021-10-03 Outpatient MHIE MHIE [id number] Memoria 09:00:00 09:00:00 27 l Cuc[place] 2021-09-19 2021-09-20 Outpatient nullFlavo MNA [id number] Memoria 14:00:00 04:59:59 r Neurology 26 l Pop [place] 2021-09-19 2021-09-19 Outpatient FAZAL BoucherSCHBENEDICTO [facility] [id number] 09:00:00 23:59:59 Tariq 26 S[place] 2021-09-19 2021-09-19 Outpatient MHIE MHIE [id number] Memoria 09:00:00 09:00:00 26 john [place] 2021-09-05 2021-09-07 Outside nullFlavo MNA [id number] Memoria 16:58:30 04:59:59 Medical r Neurology 28 l Records Pop [place] 2021-09-05 2021-09-06 Outpatient MHMISCHER MHMISCHER [id number] 11:58:30 23:59:59 28 2021-08-09 2021-08-11 Outside nullFlavo MNA [id number] Memoria 15:30:38 04:59:59 Medical r Neurology 27 l Records Pop [place] 2021-08-09 2021-08-10 Outpatient MHMISCHER MHMISCHER [id number] 10:30:38 23:59:59 27 2021-07-27 2021-07-27 Ambulatory nullFlavo MNA [id number] Memoria 15:15:00 15:15:00 Pre-Reg r Neurology 24 l Pop [place] 2021-07-27 2021-07-27 Outpatient MHIE MHIE [id number] Memoria 10:15:00 10:15:00 24 john [place] 2021-07-27 2021-07-27 Outpatient [facility] Boucher [id number] 10:15:00 10:15:00 Tariq 24 S[place] 2021-07-02 2021-07-02 Outpatient MHIE MHIE [id number] Memoria 14:40:00 14:40:00 25 john [place] 2021-06-28 2021-06-30 Outside nullFlavo MNA [id number] Memoria 13:29:04 04:59:59 Medical r Neurology 26 l Records Pop [place] 2021-06-28 2021-06-29 Outpatient MHMISCHER MHMISCHER [id number] 08:29:04 23:59:59 26 2021-05-30 2021-06-01 Outside nullFlavo MNA [id number] Memoria 18:23:59 04:59:59 Medical r Neurology 25 l Records Pop [place] 2021-05-30 2021-05-31 Outpatient MHMISCHER MHMISCHER [id number] 13:23:59 23:59:59 25 2021-05-24 2021-05-24 Ambulatory nullFlavo MNA [id number] Memoria 18:45:00 18:45:00 Pre-Reg r Neurology 23 l Pop [place] 2021-05-24 2021-05-24 Outpatient MHIE MHIE [id number] Memoria 13:45:00 13:45:00 23 l [place]uc[place] 2021-05-24 2021-05-24 Outpatient Citlaly MHMISCHER MHMISCHER [id number] 13:45:00 13:45:00 Tariq 23 [place] 2021-05-23 2021-05-23 [facility] [id number] Univers 11:00:00 11:00:00 MARIA GUADALUPE [facility] 2021-05-14 2021-05-14 [facility] 1.2.505.042 [id number] Univers 11:36:00 14:58:00 Alma CHOU 350.1.13.10 i ty [facility] 4.2.7.2.686 [facility] [id number] [place] [address] [place] 2021-05-14 2021-05-14 Outpatient Adán CHAVEZ [facility] [id number] Univers 11:15:00 11:15:00 JARETCLOVIS brewer [facility] 2021-05-14 2021-05-14 [facility] E[facility] [id number] Univers 10:40:00 10:40:00 JARET brewer [facility] 2021-05-14 2021-05-14 Letter Doctor QUAN 1.2.840.114 [id number] Univers 00:00:00 00:00:00 (Out) Unassigned, JOSE ALBERTO 350.1.13.10 [facility]y of [facility] 4.2.7.2.686 [place] [id number] [facility] [address] 2021-05-14 2021-05-14 Orders Doctor AVELINA 1.2.840.114 [id number] Univers 00:00:00 00:00:00 Only Unassigned, JOSE ALBERTO 350.1.13.10 ity of [place] [facility] 4.2.7.2.686 John as [phone] [facility] [address] 2021-04-18 2021-04-19 Outpatient nullFlavo MNA [id number] Memoria 20:00:00 05:59:59 r Neurology 22 john [place] 2021-04-18 2021-04-18 Outpatient NOHELIA Boucher MHMISCHER [id number] 14:00:00 23:59:59 Tariq 22 [place] 2021-04-18 2021-04-18 Outpatient MHIE MHIE [id number] Memoria 14:00:00 14:00:00 22 john [place] 2021-03-06 2021-03-07 Outpatient nullFlavo MNA [id number] Memoria 20:15:00 05:59:59 r Neurology 21 john [place] 2021-03-06 2021-03-06 Outpatient NOHELIA Bouhcer MHMISCHER [id number] 14:15:00 23:59:59 Tariq 21 [place] 2021-03-06 2021-03-06 Outpatient MHIE MHIE [id number] Memoria 14:15:00 14:15:00 21 john [place] 2021-02-08 2021-02-08 Ambulatory nullFlavo MNA [id number] Memoria 16:15:00 16:15:00 Pre-Reg r Neurology 20 john [place] 2021-02-08 2021-02-08 Ambulatory nullFlavo MNA [id number] Memoria 16:15:00 16:15:00 Pre-Reg r Neurology 20 john [place] 2021-02-08 2021-02-08 Outpatient MHIE MHIE [id number] Memoria 10:15:00 10:15:00 20 john [place] 2021-02-08 2021-02-08 Outpatient NOHELIA Boucher MHMISCHER [id number] 10:15:00 10:15:00 Tariq 20 [place] 2020-12-13 2020-12-13 [facility] 1.2.427.445 [id number] Univers 13:45:00 14:28:50 Visit Sarah Lopez [facility] 350.1.13.10 it y of [place] 4.2.7.2.686 John as LEOLA?BLEA [phone] Ct dical [address] MEDICAL OFFICE [facility] 2020-12-13 2020-12-13 Outpatient Adán BERG [facility] [id number] [facility] 13:45:00 14:28:50 [facility] 2020-12-13 2020-12-13 Outpatient Adán [facility]ERG [facility] [id number] [facility] 13:45:00 13:45:00 [facility] 2020-11-09 2020-11-10 Outpatient nullFlavo MNA [id number] Memoria 15:00:00 04:59:59 r Neurology 19 l Pop [place] 2020-11-09 2020-11-10 Outpatient nullFlavo MNA [id number] Memoria 15:00:00 04:59:59 r Neurology 19 l [place] 2020-11-09 2020-11-09 Outpatient FAZAL BoucherSCHER MHMISCHER [id number] 10:00:00 23:59:59 Tariq Keila Sauceda 2020-11-09 2020-11-09 Outpatient MHIE MHIE [id number] Memoria 10:00:00 10:00:00 19 l [place] 2020-10-26 2020-10-28 Outside nullFlavo MNA [id number] Memoria 19:39:10 04:59:59 Medical r Neurology 24 l Records [place] 2020-10-26 2020-10-28 Outside nullFlavo MNA [id number] Memoria 19:39:10 04:59:59 Medical r Neurology 24 l Records [place] 2020-10-26 2020-10-27 Outpatient MHMISCHER MHMISCHER [id number] 14:39:10 23:59:59 24 2020-10-27 2020-10-27 Orders Doctor AVELINA 1.2.840.114 [id number] Univers 00:00:00 00:00:00 Only Unassigned, JOSE ALBERTO 350.1.13.10 ity of [place] [facility] 4.2.7.2.686 John as [phone] [address] 2020-10-17 2020-10-19 Outside nullFlavo MNA [id number] Memoria 14:33:42 04:59:59 Medical r Neurology 23 l Records Pop [place] 2020-10-17 2020-10-19 Outside nullFlavo MNA [id number] Memoria 14:33:42 04:59:59 Medical r Neurology 23 l Records Pop [place] 2020-10-17 2020-10-18 Outpatient MHMISCHER MHMISCHER [id number] 09:33:42 23:59:59 23 2020-10-03 2020-10-05 Outside nullFlavo MNA [id number] Memoria 14:05:31 04:59:59 Medical r Neurology 22 l Records Pop [place] 2020-10-03 2020-10-05 Outside nullFlavo MNA [id number] Memoria 14:05:31 04:59:59 Medical r Neurology 22 l Records Pop [place] 2020-10-03 2020-10-04 Outpatient MHMISCHER MHMISCHER [id number] 09:05:31 23:59:59 22 2020-09-12 2020-09-14 Outside nullFlavo MNA [id number] Memoria 13:15:26 04:59:59 Medical r Neurology 21 l Records Pop [place] 2020-09-12 2020-09-14 Outside nullFlavo MNA [id number] Memoria 13:15:26 04:59:59 Medical r Neurology 21 l Records Pop [place] 2020-09-12 2020-09-13 Outpatient MHMISCHER MHMISCHER [id number] 08:15:26 23:59:59 2020-09-01 2020-09-03 Outside nullFlavo MNA [id number] Memoria 21:41:20 04:59:59 Medical r Neurology 20 l Records Pop [place] 2020-09-01 2020-09-03 Outside nullFlavo MNA [id number] Memoria 21:41:20 04:59:59 Medical r Neurology 20 l Records Pop [place] 2020-09-01 2020-09-02 Outpatient MHMISCHER MHMISCHER [id number] 16:41:20 23:59:59 20 2020-08-12 2020-08-14 Outside nullFlavo MNA [id number] Memoria 23:48:44 04:59:59 Medical r Neurology 19 l Records Pop [place] 2020-08-12 2020-08-14 Outside nullFlavo MNA [id number] Memoria 23:48:44 04:59:59 Medical r Neurology 19 l Records Pop [place] 2020-08-12 2020-08-13 Outpatient MHMISCHER MHMISCHER [id number] 18:48:44 23:59:59 19 2020-08-03 2020-08-03 Office [facility] 1.2.840.114 [id number] Univers 10:22:04 10:59:30 Visit [facility] 350.1.13.10 it y of Surgical 4.2.7.2.686 John as Specialti [id number] Me dical es 198 [facility] 2020-08-03 2020-08-03 [facility] [id number] Univers 10:00:00 10:00:00 [facility] 2020-07-27 2020-07-27 [facility] 1.2.840.114 [id number] Univers 10:23:38 10:56:44 Visit [facility] 350.1.13.10 it y of Surgical 4.2.7.2.686 John as Specialti [id number] Ct dical es 198 [facility] 2020-07-27 2020-07-27 [facility] [id number] Univers 10:30:00 10:30:00 [facility] 2020-07-20 2020-07-20 [facility] 1.2.840.114 [id number] Univers 10:38:06 10:53:06 Visit [facility] 350.1.13.10 it y of Surgical 4.2.7.2.686 John as Specialti [id number] Me dical es 198 [place] 2020-07-20 2020-07-20 Outpatient [facility] [id number] Univers 10:45:00 10:45:00 FABI ity of [facility] 2020-07-17 2020-07-17 Orders Doctor AVELINA 1.2.840.114 [id number] Univers 00:00:00 00:00:00 Only Unassigned, JOSE ALBERTO 350.1.13.[address] [facility] 4.2.7.2.686 John as [phone] [address] 2020-07-11 2020-07-11 Ambulatory nullFlavo MNA [id number] Memoria 15:00:00 15:00:00 Pre-Reg r Neurology 18 l Pop [place] 2020-07-11 2020-07-11 Ambulatory nullFlavo MNA [id number] Memoria 15:00:00 15:00:00 Pre-Reg r Neurology 18 l Pop [place] 2020-07-11 2020-07-11 Outpatient MHIE MHTEX [id number] Memoria 10:00:00 10:00:00 18 l [place] 2020-07-11 2020-07-11 Outpatient NOHELIA Boucher MHMISCHER [id number] 10:00:00 10:00:00 Tariq [place] Sauceda 2020-07-03 2020-07-03 Office Otis [facility] 1.2.447.612 [id number] Univers 14:05:02 14:20:59 Visit Sarah [facility] 350.1.13.10 it y of Surgical 4.2.7.2.686 John as Specialti [id number] Me dical es 198 [place] 2020-07-03 2020-07-03 [facility] [id number] Univers 14:15:00 14:15:00 SARAH brewer [facility] 2020-06-20 2020-06-22 Outside nullFlavo MNA [id number] Memoria 14:09:53 04:59:59 Medical r Neurology 18 l Records Pop [place] 2020-06-20 2020-06-22 Outside nullFlavo MNA [id number] Memoria 14:09:53 04:59:59 Medical r Neurology 18 l Records Pop [place] 2020-06-20 2020-06-21 Outpatient MHMISCHER MHMISCHER [id number] 09:09:53 23:59:59 18 2020-06-12 2020-06-14 Outside nullFlavo MNA [id number] Memoria 20:48:48 04:59:59 Medical r Neurology 17 l Records Pop [place] 2020-06-12 2020-06-14 Outside nullFlavo MNA [id number] Memoria 20:48:48 04:59:59 Medical r Neurology 17 l Records Pop [place] 2020-06-12 2020-06-13 Outpatient MHMISCHER MHMISCHER [id number] 15:48:48 23:59:59 17 2020-05-23 2020-05-25 Outside nullFlavo MNA [id number] Memoria 20:20:15 04:59:59 Medical r Neurology 16 l Records Pop [place] 2020-05-23 2020-05-25 Outside nullFlavo MNA [id number] Memoria 20:20:15 04:59:59 Medical r Neurology 16 l Records Pop [place] 2020-05-23 2020-05-24 Outpatient MHMISCHER MISCHER [id number] 15:20:15 23:59:59 16 2020-05-11 2020-05-13 Outside nullFlavo MNA [id number] Memoria 14:57:14 05:59:59 Medical r Neurology 15 l Records Pop [place] 2020-05-11 2020-05-13 Outside nullFlavo MNA [id number] Memoria 14:57:14 05:59:59 Medical r Neurology 15 l Records Pop [place] 2020-05-11 2020-05-12 Outpatient MHMISCHER MHMISCHER [id number] 08:57:14 23:59:59 15 2020-05-11 2020-05-12 Between nullFlavo MNA [id number] Memoria 19:26:29 19:26:29 Visit r Neurology 17 l Pop [place] 2020-05-11 2020-05-12 Between nullFlavo MNA [id number] Memoria 19:26:29 19:26:29 Visit r Neurology 17 l Pop [place] 2020-05-11 2020-05-12 Outpatient MHMISCHER MHMISCHER [id number] 13:26:29 13:26:29 17 2020-05-05 2020-05-05 Hospital [facility] 1.2.840.114 [id number] Univers 08:29:03 23:59:00 Encounter Fabi Rapidlea 350.1.13.10 ity of Surgical 4.2.7.2.686 John as Specialti [id number] Me dical es 809 [place] 2020-05-05 2020-05-05 Outpatient R [facility] [id number] Univers 08:29:03 23:59:00 [facility] 2020-05-05 2020-05-05 Office [facility] 1.2.084.560 [id number] Univers 08:14:43 09:03:52 Visit Sarah Lopez [place] 350.1.13.10 it y of Surgical 4.2.7.2.686 John as Specialti [id number] Me dical es 198 [place] 2020-05-03 2020-05-03 Telephone [facility] 1.2.840.114 [id number] Univers 00:00:00 00:00:00 Sarah Lopez Rapidlea 350.1.13.10 it y of Surgical 4.2.7.2.686 John as Specialti [id number] Me dical es 198 [place] 2020-04-11 2020-04-13 Outside nullFlavo MNA [id number] Memoria 21:31:30 05:59:59 Medical r Neurology 14 l Records Pop [place] 2020-04-11 2020-04-13 Outside nullFlavo MNA [id number] Memoria 21:31:30 05:59:59 Medical r Neurology 14 l Records Pop [place] 2020-04-11 2020-04-12 Outpatient MHMISCHER MHMISCHER [id number] 15:31:30 23:59:59 14 2020-04-06 2020-04-07 Outpatient nullFlavo MNA [id number] Memoria 15:00:00 05:59:59 r Neurology 17 l Pop [place] 2020-04-06 2020-04-07 Outpatient nullFlavo MNA [id number] Memoria 15:00:00 05:59:59 r Neurology 17 john [place] 2020-04-06 2020-04-06 Outpatient NO[facility]IA [facility]cher [facility] [id number] 09:00:00 23:59:59 Tariq Madisyn Sauceda 2020-04-06 2020-04-06 Outpatient MHIE MHIE [id number] Memoria 09:00:00 09:00:00 17 john [place] 2020-04-05 2020-04-05 Office Otis [facility] [id number] Univers 14:33:47 15:08:49 Visit Sarah [facility] 350.1.13.10 it y of Surgical 4.2.7.2.686 John as Specialti [id number] Ct dical [address] 2020-04-05 2020-04-05 [facility] [id number] Univers 14:30:00 14:30:00 SARAH plascenciay of [facility] 2020-03-30 2020-04-01 Outside nullFlavo MNA [id number] Memoria 18:38:14 05:59:59 Medical r Neurology 13 l Records Pop [place] 2020-03-30 2020-04-01 Outside nullFlavo MNA [id number] Memoria 18:38:14 05:59:59 Medical r Neurology 13 l Records [place] 2020-03-30 2020-03-31 [facility] [id number] 12:38:14 23:59:59 13 2020-03-27 2020-03-27 Orders Doctor QUAN 1.2.840.114 [id number] Univers 00:00:00 00:00:00 Only Unassigned, JOSE ALBERTO 350.1.13.10 it[facility] [place] [facility] 4.2.7.2.686 John as [id number] [address] 2020-02-25 2020-02-26 Outpatient nullFlavo MNA [id number] Memoria 20:00:00 05:59:59 r Neurology 16 l Pop [place] 2020-02-25 2020-02-26 Outpatient nullFlavo MNA [id number] Memoria 20:00:00 05:59:59 r Neurology 16 l Pop [place] 2020-02-25 2020-02-25 Outpatient Citlaly [facility] [id number] 14:00:00 23:59:59 Tariq 16 [place] 2020-02-25 2020-02-25 Outpatient MHIE MHIE [id number] Memoria 14:00:00 14:00:00 16 john [place] 2020-01-27 2020-01-28 Outpatient nullFlavo MNA [id number] Memoria 16:45:00 05:59:59 r Neurology 15 l Pop [place] 2020-01-27 2020-01-28 Outpatient nullFlavo MNA [id number] Memoria 16:45:00 05:59:59 r Neurology 15 l Pop [place] 2020-01-27 2020-01-27 Outpatient Citlaly [facility] [id number] 10:45:00 23:59:59 Tariq 15 [place] 2020-01-27 2020-01-27 Outpatient MHIE MHIE [id number] Memoria 10:45:00 10:45:00 15 l [place] 2020-01-17 2020-01-19 Outside nullFlavo MNA [id number] Memoria 14:53:42 05:59:59 Medical r Neurology 11 l Records Pop [place] 2020-01-17 2020-01-19 Outside nullFlavo MNA [id number] Memoria 14:53:42 05:59:59 Medical r Neurology 11 l Records Pop [place] 2020-01-17 2020-01-18 Outpatient MHMISCHER MHMISCHER [id number] 08:53:42 23:59:59 11 2019-12-29 2019-12-31 Outside nullFlavo MNA [id number] Memoria 14:56:04 04:59:59 Medical r Neurology 10 l Records [place] 2019-12-29 2019-12-31 Outside nullFlavo MNA [id number] Memoria 14:56:04 04:59:59 Medical r Neurology 10 l Records Pop [place] 2019-12-29 2019-12-30 Outpatient MHMISCHER MHMISCHER [id number] 09:56:04 23:59:59 10 2019 2019-12-22 Outside nullFlavo MNA [id number] Memoria 16:12:08 04:59:59 Medical r Neurology 09 l Records Pop [place] 2019 2019-12-22 Outside nullFlavo MNA [id number] Memoria 16:12:08 04:59:59 Medical r Neurology 09 l Records Pop [place] 2019-12-22 2019-12-22 [facility] 1.2.840.114 [id number] [facility] 00:00:00 00:00:00 [facility] 350.1.13.10 it y of [place] 4.2.7.2.686 Jonh as Professio [phone] [address] 2019-12-22 2019-12-22 Telephone [facility] 1.2.840.114 [id number] 00:00:00 00:00:00 [facility] 350.1.13.10 [place] 4.2.7.2.686 Professio [phone] [place] [address] Office [facility] 2019 2019-12-21 Outpatient MHMISCHER MHMISCHER [id number] 11:12:08 23:59:59 09 2019 2019 [employer] [facility], [facility] Pob I [facility] 1.2. 840.114 [id number] [facility] 14:33:07 14:38:53 Visit Maria Guadalupe [facility] 350.1.13 .10 ity of [place] 4.2.7.2.686 John as Professio [phone] [address] 2019 2019 [facility], [facility] 1.2.840.114 [id number] 14:33:07 14:38:53 [facility] 350.1.13.10 [place] 4.2.7.2.686 Professio [phone] [place] [address] [address] 2019 2019 Office [facility] 1.2.840.114 [id number] Univers 14:04:23 14:19:23 Visit [facility] 350.1.13.10 it y of [place] 4.2.7.2.686 John as Professio [phone] Me dical [address] Office [facility] 2019 2019 Office [facility] 1.2.840.114 [id number] 14:04:23 14:19:23 Visit [facility] 350.1.13.10 [place] 4.2.7.2.686 Professio [phone] [place] [address] Office [address] [facility] 2019 2019 Outpatient R [facility] [id number] [facility] 14:00:00 14:00:00 MARIA GUADALUPE [facility] 2019-12-01 2019-12-03 Outside nullFlavo MNA [id number] Memoria 15:09:41 04:59:59 Medical r Neurology 08 l Records [facility] 2019-12-01 2019-12-03 Outside nullFlavo MNA [id number] Memoria 15:09:41 04:59:59 Medical r Neurology 08 l Records [facility] 2019-12-01 2019-12-02 Outpatient MHMISCHER MHMISCHER [id number] 10:09:41 23:59:59 08 2019-11-22 2019-11-24 Outside nullFlavo MNA [id number] Memoria 19:18:01 04:59:59 Medical r Neurology 07 l Records [facility] 2019-11-22 2019-11-24 Outside nullFlavo MNA [id number] Memoria 19:18:01 04:59:59 Medical r Neurology 07 l Records [facility] 2019-11-22 2019-11-23 Outpatient MHMISCHER MHMISCHER [id number] 14:18:01 23:59:59 07 2019-11-02 2019-11-02 Ambulatory nullFlavo MNA [id number] Memoria 14:45:00 14:45:00 Pre-Reg r Neurology 14 l [place] 2019-11-02 2019-11-02 Ambulatory nullFlavo MNA [id number] Memoria 14:45:00 14:45:00 Pre-Reg r Neurology 13 l Pop [place] 2019-11-02 2019-11-02 Ambulatory nullFlavo MNA [id number] Memoria 14:45:00 14:45:00 Pre-Reg r Neurology 13 l Pop [place] 2019-11-02 2019-11-02 Ambulatory nullFlavo MNA [id number] Memoria 14:45:00 14:45:00 Pre-Reg r Neurology 14 l Pop [place] 2019-11-02 2019-11-02 Outpatient MHIE MHIE [id number] Memoria 09:45:00 09:45:00 13 john [place] 2019-11-02 2019-11-02 Outpatient MHIE MHIE [id number] Memoria 09:45:00 09:45:00 14 john [place] 2019-11-02 2019-11-02 Outpatient Citlaly, MHMISCHER MHMISCHER [id number] 09:45:00 09:45:00 Tariq 14 [place] 2019-11-02 2019-11-02 Outpatient Citlaly, MHMISCHER MHMISCHER [id number] 09:45:00 09:45:00 Tariq 13 [facility] 2019-10-28 2019-10-28 [place] [id number] Univers 00:00:00 00:00:00 [facility] [id number] it y of [place] [id number] John as [facility] [phone] dical nal [address] Building One 2019-10-27 2019-10-27 [facility] [id number] Univers 14:29:56 23:59:00 Encounter Maria Guadalupe Chou [id number] [id number] [phone] [facility] [address] 2019-10-27 2019-10-27 [facility] [id number] Univers 09:30:00 14:28:00 Encounter Debi Anita Effie [id number] ity [id number] [phone] [facility] [address] 2019-10-27 2019-10-27 Outpatient R RAFIQ, [facility] [id number] Univers 00:00:00 00:00:00 DEBI ity of [facility] 2019-10-27 2019-10-27 Orders Doctor AVELINA [id number] Univers 00:00:00 00:00:00 Only Unassigned, JOSE ALBERTO [id number] ity of [place] [facility] [id number] John as [phone] [facility] [address] 2019-10-27 2019-10-27 Telephone [facility] [id number] Univers 00:00:00 00:00:00 [facility] [id number] it y of [place] [id number] John as Professio [id number] [address] Office [facility] One 2019-10-26 2019-10-26 Telephone [facility] [id number] Univers 00:00:00 00:00:00 [facility] [id number] it y of [place] [id number] John as Professio [id number] Ct dicar nal [address] [place] [address] Office [facility] One 2019-10-06 2019-10-06 Refill [facility] 1.2.840.114 [id number] Univers 00:00:00 00:00:00 [facility] 350.1.13.10 it y of [place] [id number] John as Professio [phone] Ct dic[address] Office [facility] One 2019-09-21 2019-09-21 Telephone [facility] 1.2.840.114 [id number] Univers 00:00:00 00:00:00 Maria Guadalupe [place] 350.1.13.10 i ty of [place] 4.2.7.2.686 [place] Professio [phone] Ct dical nal 044 [facility] 2019-09-21 2019-09-21 Orders Doctor AVELINA 1.2.840.114 [id number] Univers 00:00:00 00:00:00 Only Unassigned, JOSE ALBERTO 350.1.13.10 ity of [place] [facility] 4.2.7.2.686 John as [phone] [address] 2019-09-06 2019-09-06 Orders Doctor AVELINA 1.2.840.114 [id number] Univers 00:00:00 00:00:00 Only Unassigned, JOSE ALBERTO 350.1.13.10 ity of [place] [facility] 4.2.7.2.686 John as [phone] [address] 2019-07-30 2019-07-31 Outpatient nullFlavo MNA [id number] [facility] 14:15[facility] 04:59:59 r Neurology 11 john [facility] 2019-07-30 2019-07-31 Outpatient nullFlavo MNA [id number] [facility] 14:15:00 04:59:59 r Neurology 11 l [facility] 2019-07-30 2019-07-30 Outpatient Citlaly, MHMISCHER MHMISCHER [id number] 09:15:00 23:59:59 Tariq Lorenzo [facility] 2019-07-30 2019-07-30 Outpatient MHIE MHIE [id number] [facility] 09:15:00 09:15:00 11 john [place] 2019-07-07 2019-07-07 [facility] 1.2.840.114 [id number] Univers 00:00:00 00:00:00 [facility] 350.1.13.10 it y of [place] 4.2.7.2.686 John as Professio [phone] Ct dical nal 044 [facility] 2019-06-23 2019-06-23 [facility] 1.2.840.114 [id number] Univers 00:00:00 00:00:00 [facility] 350.1.13.10 it y of [place] 4.2.7.2.686 John as Professio [phone] Ct dical nal 044 [place] [facility] One 2019-06-22 2019-06-22 Emergency [facility] 1.2.370.787 [id number] Univers 12:48:01 14:20:00 Ata Effie 350.1.13.10 i ty of [place] 4.2.7.2.686 [facility] [phone] [facility] 084 [place] 2019-06-22 2019-06-22 Emergency X [facility] ERT [id number] Univers 12:48:01 14:20:00 ATA brewer of [facility] 2019-06-22 2019-06-22 Telephone [facility] 1.2.840.114 [id number] Univers 00:00:00 00:00:00 Maria Guadalupe [facility] [id number] it y of [place] 4.2.7.2.686 John as Professio [phone] Ct dical nal 044 [place] [facility] One 2019-05-27 2019-05-27 Orders Doctor AVELINA 1..840.114 [id number] Univers 00:00:00 00:00:00 Only Unassigned, JOSE ALBERTO 350.1.13.10 ity of [place] [facility] 4.2.7.2.686 John as [phone] [facility] [address] [place] 2019-05-07 2019-05-08 Outpatient nullFlavo MNA [id number] [facility] 17:00:00 05:59:59 r Neurology 12 l Pop [place] 2019-05-07 2019-05-08 Outpatient nullFlavo MNA [id number] [facility] 17:00:00 05:59:59 r Neurology 12 l Pop [place] 2019-05-07 2019-05-07 Outpatient ALESSANDRA BoucherMISCHER MHMISCHER [id number] 11:00:00 23:59:59 Tariq 12 [place] 2019-05-07 2019-05-07 Outpatient MHIE ALESSANDRAIE [id number] [facility] 11:00:00 11:00:00 12 john [place] 2019-03-25 2019-03-25 [facility] 1.2.840.114 [id number] Univers 13:36:36 14:30:43 Visit Debi Muñoz 350.1.13.10 i ty of [place] 4.2.7.2.686 John as Professio [phone] Ct dical [facility] 044 [place] [facility] One 2019-03-25 2019-03-25 Orders Doctor AVELINA 1.2.840.114 [id number] Univers 00:00:00 00:00:00 Only Unassigned, JOSE ALBERTO 350.1.13.10 ity of [place] [facility] 4.2.7.2.686 John as [phone] [address] 2019-01-29 2019-01-30 Outpatient nullFlavo MNA [id number] [facility] 19:45:00 05:59:59 r Neurology 10 john Lord [place] 2019-01-29 2019-01-30 Outpatient nullFlavo MNA [id number] [facility] 19:45:00 05:59:59 r Neurology 10 john [place] 2019-01-29 2019-01-29 Outpatient ALESSANDRA BoucherMISCHER MHMISCHER [id number] 13:45:00 23:59:59 Tariq Surjit [place] 2019-01-29 2019-01-29 Outpatient MHIE MHIE [id number] [facility] 13:45:00 13:45:00 Surjit [place] 2019-01-19 2019-01-19 Ambulatory nullFlavo MNA [id number] [facility] 19:00:00 19:00:00 Pre-Reg r Neurology 09 john [place] 2019-01-19 2019-01-19 Ambulatory nullFlavo MNA [id number] [facility] 19:00:00 19:00:00 Pre-Reg r Neurology 09 john Lord [place] 2019-01-19 2019-01-19 Outpatient MHIE MHIE [id number] [facility] 13:00:00 13:00:00 Arturo [place] 2019-01-19 2019-01-19 [facility] [id number] 13:00:00 13:00:00 Tariqlisa Sauceda 2018-11-03 2018-11-03 Ambulatory nullFlavo MNA [id number] [facility] 14:15:00 14:15:00 Pre-Reg r Neurology 08 john [place] 2018-11-03 2018-11-03 Ambulatory nullFlavo MNA [id number] [facility] 14:15:00 14:15:00 Pre-Reg r Neurology 08 l Pop [place] 2018-11-03 2018-11-03 Outpatient MHIE MHIE [id number] [facility] 09:15:00 09:15:00 08 john [place] 2018-11-03 2018-11-03 Outpatient T[facility]alyssa [facility] [id number] 09:15:00 09:15:00 Tariq Oscar Sauced[place] 2018-07-30 2018-07-31 Outpatient nullFlavo MNA [id number] [facility] 14:15:00 04:59:59 r Neurology 07 l Pop [place] 2018-07-30 2018-07-31 Outpatient nullFlavo MNA [id number] [facility] 14:15:00 04:59:59 r Neurology 07 l Pop [place] 2018-07-30 2018-07-30 [facility]patient [facility]alyssa [facility] [id number] 09:15:00 23:59:59 Tariq Rubio Sauced[place] 2018-07-30 2018-07-30 Outpatient MHIE MHIE [id number] [facility] 09:15:00 09:15:00 07 john [place] 2018-06-18 2018-06-18 Outpatient MHIE MHIE [id number] [facility] 16:00:00 16:00:00 06 john [place] 2018-06-18 2018-06-18 Outpatient MHIE MHIE [id number] [facility] 16:00:00 16:00:00 06 john [place] 2018-06-02 2018-06-02 Outpatient MHIE MHIE [id number] [facility] 08:30:00 08:30:00 05 john [place] 2018-06-02 2018-06-02 Outpatient MHIE MHIE [id number] [facility] 08:30:00 08:30:00 05 john [place] 2018-04-15 2018-04-17 Outside nullFlavo MNA [id number] [facility] 20:22:00 05:59:59 Medical r Neurology 05 l Records Pop [place] 2018-04-15 2018-04-17 Outside nullFlavo MNA [id number] [facility] 20:22:00 05:59:59 Medical r Neurology 05 l Records [place] 2018-04-15 2018-04-16 Outpatient MHMISCHER MHMISCHER [id number] 14:22:00 23:59:59 05 2018-04-10 2018-04-12 Outside nullFlavo MNA [id number] [facility] 19:36:00 05:59:59 Medical r Neurology 04 l Records Pop [place] 2018-04-10 2018-04-12 Outside nullFlavo MNA [id number] [facility] 19:36:00 05:59:59 Medical r Neurology 04 l Records Pop [place] 2018-04-10 2018-04-11 Outpatient MHMISCHER MHMISCHER [id number] 13:36:00 23:59:59 04 2018-03-23 2018-03-25 Outside nullFlavo MNA [id number] [facility] 20:14:00 05:59:59 Medical r Neurology 03 l Records Pop [place] 2018-03-23 2018-03-25 Outside nullFlavo MNA [id number] [facility] 20:14:00 05:59:59 Medical r Neurology 03 l Records Pop [place] 2018-03-23 2018-03-24 [facility] [id number] 14:14:00 23:59:59 03 2018-03-14 2018-03-16 Outside nullFlavo MNA [id number] [facility] 16:20:00 05:59:59 Medical r Neurology 02 l Records Pop [place] 2018-03-14 2018-03-16 Outside nullFlavo MNA [id number] [facility] 16:20:00 05:59:59 Medical r Neurology 02 l Records Pop [place] 2018-03-14 2018-03-15 Outpatient MHMISCHER MHMISCHER [id number] 10:20:00 23:59:59 02 2018-02-04 2018-02-04 Ambulatory nullFlavo MNA [id number] [facility] 15:45:00 15:45:00 Pre-Reg r Neurology 04 l Pop [place] 2018-02-04 2018-02-04 Ambulatory nullFlavo MNA [id number] [facility] 15:45:00 15:45:00 Pre-Reg r Neurology 04 l Pop [place] 2018-02-04 2018-02-04 Outpatient MHIE MHIE [id number] [facility] 09:45:00 09:45:00 Bill lopez [place] 2018-02-04 2018-02-04 Outpatient Citlaly [facility] [id number] 09:45:00 09:45:00 Tariq Bill [place] 2017-12-23 2017-12-23 Ambulatory nullFlavo MNA [id number] [facility] 14:00:00 14:00:00 Pre-Reg r Neurology 01 l Pop [place] 2017-12-23 2017-12-23 Ambulatory nullFlavo MNA [id number] [facility] 14:00:00 14:00:00 Pre-Reg r Neurology 01 l [place] 2017-12-23 2017-12-23 Outpatient MHIE MHIE [id number] [facility] 09:00:00 09:00:00 01 john [place] 2017-12-23 2017-12-23 Outpatient Tiffanyalyssa JULIENNESCHER MISCHER [id number] 09:00:00 09:00:00 Tariqlisa Sauceda 2017-11-05 2017-11-05 Outpatient MHIE MHIE [id number] [facility] 10:30:00 10:30:00 02 john [place] 2017-11-05 2017-11-05 Outpatient MHIE MHIE [id number] [facility] 10:30:00 10:30:00 03 john [place] 2017-11-05 2017-11-05 Outpatient MHIE MHIE [id number] [facility] 10:30:00 10:30:00 03 john [place] 2017-11-05 2017-11-05 Outpatient MHIE MHIE [id number] [facility] 10:30:00 10:30:00 02 john [place] 2017-06-24 2017-06-24 Outpatient MHIE MHIE [id number] [facility] 11:30:00 11:30:00 00 john [place] 2017-06-24 2017-06-24 Outpatient MHIE MHIE [id number] [facility] 11:30:00 11:30:00 00 john [place] Results This patient has no known results.
[2022-01-15 11:24] LABS: Absolute Lymphocytes (CBC) 2.1 K/uL (0.7-4.9); Hematocrit 39.4 % (39.6-49.0); Lymphocytes % 22.1 % (15.3-44.8); MCV 83.9 fL (80-100); MPV 8.1 fL (7.6-11.3)
[2022-01-15 11:30] LABS: Albumin 3.4 g/dL (3.4-5.0); Bilirubin Total 0.6 mg/dL (0.2-1.0); Potassium 4.2 mmol/L (3.5-5.1); Protein, Total 6.8 g/dL (6.4-8.2)
--- NOTE | 2022-01-15 12:10 | RAD REPORT ---
EXAM DESCRIPTION: CT - Abdomen Pelvis W Contrast - 01/15/2022 11:44 am CLINICAL HISTORY: lower abd and back pain COMPARISON: CT ABD PELVIS W CONTRAST dated 09/13/2011; Spine Lumbar Wo Con dated 10/10/2021 TECHNIQUE: Biphasic, helical CT imaging of the abdomen and pelvis was performed following 100 ml non -ionic IV contrast. Oral contrast: No. All CT scans are performed using dose optimization technique as appropriate and may include automated exposure control or mA/KV adjustment according to patient size. FINDINGS: No suspicious findings in the lung bases. The liver, spleen, and pancreas show no suspicious findings. Multiple gallstones are present. These h ave been previously seen. No acute gallbladder or biliary tree finding identifiable. Symmetric renal function is seen with no hydronephrosis or suspicious renal mass. No pyelonephritis o r acute parenchymal process. No bladder abnormalities. No adrenal abnormalities. Minimal hiatal hernia is present. No acute gastric finding. No acute small bowel abnormality. Appendi x is unremarkable. Patient has very pronounced sigmoid diverticulosis. Acute diverticulitis is not se en. No acute colon finding is identifiable. Mass assessment is limited with this degree of diverticul osis. No free air, free fluid or inflammatory stranding. No mass or bulky lymphadenopathy. Fat filled ingu inal hernias are present. Patient has a 2 centimeter fat only umbilical hernia. Degenerative changes are present. Lumbar fusion changes are present L4-S1. Several air densities are seen in the central canal from L3-S1. This is typically degenerative gas from disc disease that exten ds into the central canal due to herniation or disc bulge. Central canal is too inherently limited on CT imaging. Assessment is further limited due to the artifact from the surgical hardware. . IMPRESSION: Patient has multi stone cholelithiasis with no acute gallbladder or biliary tree finding identified. No acute GI or finding identifiable. Patient has extensive degenerative and postsurgical changes in the mid and lower lumbar spine. Degene rative gas is present in the L2-3 and L3-4 disc spaces. Air densities extend in the central canal in the L3-L5 region. These are probably due to already degenerative discs protruding into the central c anal. Central canal detail is inherently limited on CT abdomen and pelvis imaging. Limitations are further compromised due to the spray artifact from the metal hardware.
[2022-01-15 13:19] LABS: Urine Blood Negative (Negative); Urine Glucose Negative (Negative); Urine Protein Negative (Negative); Urine Specific Gravity 1.015 (1.005-1.030)
[2022-01-15 13:27] LABS: Urine Bacteria <20 /HPF (<20); Urine RBC <5 /HPF (None Seen)
--- NOTE | 2022-01-15 14:05 | ER ---
Nurse's Notes [facility] Name: Ranulfo Chao Age: 86 yrs Sex: Male : 1935 Arrival Date: 01/15/2022 Time: 10:29 Bed 20 Private MD: Diagnosis: Retention of urine, unspecified Presentation: 01/15 10:39 Chief complaint: Patient states: 3-4 days of lower abdominal/ pelvic pain with back iw pain. Coronavirus screen: Vaccine status: Patient reports being unvaccinated. Client denies travel out of the [place] in the last 14 days. Ebola Screen: Patient negative for fever greater than or equal to 101.5 degrees Fahrenheit, and additional compatible Ebola Virus Disease symptoms Patient denies exposure to infectious person. Patient denies travel to an Ebola-affected area in the 21 days before illness onset. No acute neurological deficit is noted. Pre-hospital glucose is not applicable to this patient. Initial Sepsis Screen: Does the patient meet any 2 criteria? No. Patient's initial sepsis screen is negative. Does the patient have a suspected source of infection? No. Patient's initial sepsis screen is negative. Risk Assessment: Do you want to hurt yourself or someone else? Patient reports no desire to harm self or others. Onset of symptoms was January 11, 2022. 10:39 Method Of Arrival: Wheelchair iw 10:39 Acuity: SABINE 3 iw Triage Assessment: 10:41 The onset of the patients symptoms was. General: Appears in no apparent distress. iw uncomfortable, slender, well groomed, well developed, Behavior is calm, cooperative, appropriate for age. Pain: Complains of pain in back and abdomen. Neuro: Reports. 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 - Social history:: Smoking status: Patient denies any tobacco usage or history of. - Family history:: not pertinent. - Hospitalizations: : No recent hospitalization is reported. Screenin:47 Abuse screen: Denies threats or abuse. Denies injuries from another. Nutritional mb8 screening: No deficits noted. Tuberculosis screening: No symptoms or risk factors identified. Fall Risk Fall in past 12 months (25 points). Secondary diagnosis (15 points) No IV (0 pts). Ambulatory Aid- Crutches/Cane/Walker (15 pts). Gait- Weak (10 pts.). Mental Status- Oriented to own ability (0 pts). Total Franz Fall Scale indicates High Risk Score (45 or more points). Assessment: 10:46 TNKase (Tenecteplase) Screening: Contraindications: Other: n/a. mb8 10:46 VAN Scoring: Arm Drift: Patients demonstrates NO arm weakness. Patient is VAN Negative. mb8 Visual Disturbance: No visual disturbance noted. Aphasia: No aphasia noted. Neglect: No neglect noted. Neuro: Reports weakness. GI: Reports lower abdominal pain. 10:50 General: Patient attempted to give UA but was unable to at this time.. mb8 12:31 General: Patient still unable to give UA, bladder scanner after 1st attempt was 164. mb8 12:31 Reassessment: Patient and/or family updated on plan of care and expected duration. Pain mb8 level reassessed. Patient is alert, oriented x 3, equal unlabored respirations, skin warm/dry/pink. Vital Signs: 10:39 Pulse 88; Resp 16; Temp 97.3; Pulse Ox 97% ; Weight 72.57 kg; Height 5 ft. 5 in. iw (165.10 cm); Pain 5/10; 12:30 BP 141 / 82; Pulse 82; Resp 18; Pulse Ox 98% on R/A; mb8 10:39 Body Mass Index 26.63 (72.57 kg, 165.10 cm) iw Vitals: 10:47 Cardiac Rhythm Assessment Sinus rhythm. mb8 12:30 Cardiac Rhythm Assessment Sinus rhythm. mb8 NIH Stroke Scale Scores: 10:46 NIHSS Score: 0 mb8 ED Course: 10:29 Patient arrived in ED. as 10:36 Earl Cota MD is Attending Physician. rn 10:41 Triage completed. iw 10:41 Arm band placed on right wrist. iw 10:45 Alexandru Bocanegra RN is Primary Nurse. mb8 10:47 Patient has correct armband on for positive identification. Placed in gown. Bed in low mb8 position. Call light in reach. Side rails up X2. monitor and storage bin tender on. 10:47 No provider procedures requiring assistance completed. mb8 10:52 Inserted saline lock: 18 gauge in right antecubital area, using aseptic technique. mb8 Blood collected. 11:03 Bladder scan completed. 164ml. mb8 11:45 CT Abd/Pelvis - IV Contrast Only In Process Unspecified. EDMS 13:05 Bladder scan completed. 397. mb8 13:15 Mccarthy cath inserted, using sterile technique, 16 Fr., by ia, balloon inflated, to mb8 gravity drainage, urine specimen collected. 500 Output. 14:03 Bandar Curtis MD is Referral Physician. rn 14:25 IV discontinued, intact, bleeding controlled, No redness/swelling at site. Pressure mb8 dressing applied. Administered Medications: No medications were administered Medication: 10:47 VIS not applicable for this client. mb8 Output: 13:27 Urine: 500ml (Mccarthy); Total: 500ml. mb8 14:25 Urine: 200ml (Mccarthy); Total: 700ml. mb8 Outcome: 14:05 Discharge ordered by . rn 14:28 Discharged to home via wheelchair, with family. mb8 14:28 Condition: stable 14:28 Discharge instructions given to patient, Instructed on discharge instructions, follow up and referral plans. Demonstrated understanding of instructions, follow-up care. 14:33 Patient left the ED. mb8 NIH Stroke Scale - NIH Stroke Score Date: 01/15/2022 Time: 10:46 Total Score = 0 1a. Level of Consciousness (LOC) - 0(Alert) 1b. Level of Consciousness (LOC) (Month \T\ Age) - 0(Both) 1c. LOC Commands (Open \T\ Closes Eyes/Information Security Director) - 0(Both) 2. Best Gaze (Lateral Gaze Paresis) - 0(Normal) 3. Visual Field Loss - 0(No visual loss) 4. Facial Palsy - 0(Normal) 5a. Left Arm: Motor (10-second hold) - 0(No drift) 5b. Right Arm: Motor (10-second hold) - 0(No drift) 6a. Left Leg: Motor (5-second hold - always test supine) - 0(No drift) 6b. Right Leg: Motor (5-second hold - always test supine) - 0(No drift) 7. Limb Ataxia (finger/nose \T\ heel/calvin - test with eyes open) - 0(Absent) 8. Sensory Loss (pinprick arms/legs/face) - 0(Normal) 9. Best Language: Aphasia (description/naming/reading) - 0(No aphasia) 10. Dysarthria (speech clarity - read or repeat words) - 0(Normal) 11. Extinction and Inattention (visual/tactile/auditory/spatial/personal) - 0(No abnormality) Initials: mb8 Signatures: Dispatcher [employer] Tiny Arroyo Irene, Earl Mckeon RN, MD MD rn Bates, Michael, RN RN mb8
--- NOTE | 2022-01-15 14:05 | EDPHYS ---
Physician Documentation [facility] Name: Ranulfo Chao Age: 86 yrs Sex: Male : 1935 Arrival Date: 01/15/2022 Time: 10:29 Bed 20 Private MD: ED Physician Earl Cota HPI: 01/15 12:29 This 86 yrs old Male presents to ER via Wheelchair with complaints of Pelvic Pain, Low rn Back Pain, Weakness. 12:29 The patient presents with abdominal pain in the lower abdomen. Onset: The rn symptoms/episode began/occurred 4 day(s) ago. The symptoms do not radiate. Associated signs and symptoms: Pertinent negatives: nausea and vomiting, blood in stools, chest pain, constipation, fever, hematuria, shortness of breath, testicular pain, vomiting, vomiting blood. The symptoms are described as crampy, intermittent. Modifying factors: The symptoms are alleviated by nothing, the symptoms are aggravated by nothing. Severity of pain: At its worst the pain was mild in the emergency department the pain is unchanged. The patient has experienced similar episodes in the past. The patient has not recently seen a physician. Pt and report chronic "neuropathic pain all over", here today because for last 4 days has been having lower abd pain and lower back pain. No fever. No fall or trauma. No blood in stool. No difficulty urinating. Has had similar pains in past and diagnosed with prostate problems. Unable to get appointment so came here. . 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 - Social history:: Smoking status: Patient denies any tobacco usage or history of. - Family history:: not pertinent. - Hospitalizations: : No recent hospitalization is reported. ROS: 12:29 Constitutional: Negative for fever, chills, and weight loss, Eyes: Negative for injury, rn pain, redness, and discharge, Neck: Negative for injury, pain, and swelling, Cardiovascular: Negative for chest pain, palpitations, and edema, Respiratory: Negative for shortness of breath, cough, wheezing, and pleuritic chest pain, Abdomen/GI: + lower abd pain Back: + back pain : Negative for injury, bleeding, discharge, and swelling, MS/Extremity: Negative for injury and deformity, Skin: Negative for injury, rash, and discoloration, Neuro: Negative for headache, weakness, numbness, tingling, and seizure. Exam: 12:29 Constitutional: This is a well developed, well nourished patient who is awake, alert, rn and in no acute distress. Head/Face: Normocephalic, atraumatic. Eyes: Periorbital areas with no swelling, redness, or edema. Cardiovascular: Regular rate and rhythm. No pulse deficits. Respiratory: No increased work of breathing, no retractions or nasal flaring. Abdomen/GI: soft, no focal tenderness, no rebound, no masses Skin: Warm, dry MS/ Extremity: Pulses equal, no cyanosis. Neuro: Awake and alert, GCS 15 Vital Signs: 10:39 Pulse 88; Resp 16; Temp 97.3; Pulse Ox 97% ; Weight 72.57 kg; Height 5 ft. 5 in. iw (165.10 cm); Pain 5/10; 12:30 BP 141 / 82; Pulse 82; Resp 18; Pulse Ox 98% on R/A; mb8 10:39 Body Mass Index 26.63 (72.57 kg, 165.10 cm) iw NIH Stroke Scale Scores: 10:46 NIHSS Score: 0 mb8 MDM: 10:36 Patient medically screened. rn 14:00 Differential diagnosis: appendicitis, bowel obstruction, diverticulitis, gastritis, rn gastroesophageal reflux disease, non-specific abd pain, Prostatitis, Ureterolithiasis, urinary tract infection, arthritis, chronic pain, UTI, urinary retention. Data reviewed: vital signs, nurses notes, lab test result(s), radiologic studies, CT scan, and as a result, I will discharge patient. Counseling: I had a detailed discussion with the patient and/or guardian regarding: the historical points, exam findings, and any diagnostic results supporting the discharge/admit diagnosis, lab results, radiology results, the need for outpatient follow up, to return to the emergency department if symptoms worsen or persist or if there are any questions or concerns that arise at home. Response to treatment: the patient's symptoms have markedly improved after treatment, and as a result, I will discharge patient. Special discussion: I discussed with the patient/guardian in detail that at this point there is no indication for admission to the hospital. It is understood, however, that if the symptoms persist or worsen the patient needs to return immediately for re-evaluation. Based on the history and exam findings, there is no indication for further emergent testing or inpatient evaluation. I discussed with the patient/guardian the need to see the urologist for further evaluation of the symptoms. ED course: NO acute findings on CT abdomen, + worsening lower back degenerative disk disease and arthritis, + urinary retention, improvement of symptoms after lr placement. Will dc home with urology. TOld to return here for voiding trial and reevaluation if unable to get in with urology. Has seen Dr. Curtis for this before. . 01/15 10:42 Order name: CBC with Diff; Complete Time: 12:24 rn 01/15 10:42 Order name: CMP; Complete Time: 12:24 rn 01/15 10:42 Order name: Lipase; Complete Time: 12:24 rn 01/15 10:42 Order name: Urine Microscopic Only; Complete Time: 13:56 rn 01/15 10:42 Order name: Flu; Complete Time: 12:24 rn 01/15 13:20 Order name: Urine Dipstick-Ancillary; Complete Time: 13:56 EDMS 01/15 10:42 Order name: CT Abd/Pelvis - IV Contrast Only; Complete Time: 12:24 rn 01/15 10:42 Order name: IV Saline Lock; Complete Time: 10:58 rn 01/15 10:42 Order name: Labs collected and sent; Complete Time: 10:58 rn 01/15 10:42 Order name: Urine Dipstick-Ancillary (obtain specimen); Complete Time: 13:26 rn 01/15 13:26 Order name: Lr; Complete Time: 13:26 mb8 Administered Medications: No medications were administered Disposition Summary: 01/15/22 14:05 Discharge Ordered Location: Home rn Problem: an ongoing problem rn Symptoms: have improved rn Condition: Stable rn Diagnosis - Retention of urine, unspecified rn Followup: rn - With: Bandar Curtis MD - When: 1 week - Reason: Recheck today's complaints, Re-evaluation by your physician Discharge Instructions: - Discharge Summary Sheet rn - Indwelling Urinary Catheter Care, Adult rn - Acute Urinary Retention, Male rn Forms: - Medication Reconciliation Form rn - Thank You Letter rn - Antibiotic manufacturing engineering intern - Prescription Opioid Use rn NIH Stroke Scale - NIH Stroke Score Date: 01/15/2022 Time: 10:46 Total Score = 0 1a. Level of Consciousness (LOC) - 0(Alert) 1b. Level of Consciousness (LOC) (Month \\T\\ Age) - 0(Both) 1c. LOC Commands (Open \\T\\ Closes Eyes/Managing Director Atlas) - 0(Both) 2. Best Gaze (Lateral Gaze Paresis) - 0(Normal) 3. Visual Field Loss - 0(No visual loss) 4. Facial Palsy - 0(Normal) 5a. Left Arm: Motor (10-second hold) - 0(No drift) 5b. Right Arm: Motor (10-second hold) - 0(No drift) 6a. Left Leg: Motor (5-second hold - always test supine) - 0(No drift) 6b. Right Leg: Motor (5-second hold - always test supine) - 0(No drift) 7. Limb Ataxia (finger/nose \\T\\ heel/calvin - test with eyes open) - 0(Absent) 8. Sensory Loss (pinprick arms/legs/face) - 0(Normal) 9. Best Language: Aphasia (description/naming/reading) - 0(No aphasia) 10. Dysarthria (speech clarity - read or repeat words) - 0(Normal) 11. Extinction and Inattention (visual/tactile/auditory/spatial/personal) - 0(No abnormality) Initials: mb8 Signatures: Dispatcher [employer] Мария Christiansen RN RN iw Nieto, Roman, MD MD rn Bates, Michael, RN RN mb8
[2022-01-15 14:52] VITALS: TEMP 97.3
[2022-01-15 14:57] VITALS: BP 141/82; O2SAT 98
== END 2022-01-15 14:33 | disposition home or self-care (01) ==
LOC: ER 10:24
DX: R33.9 Retention of urine, unspecified (principal); I10 Essential (primary) hypertension; Z88.1 Allergy status to other antibiotic agents; Z88.5 Allergy status to narcotic agent; Z88.7 Allergy status to serum and vaccine
CPT/HCPCS: 85025; 36415; 83690; 80053; 87804 ×2; 74177; 51702; 99284; Q9967; 81003; 81015

== ENCOUNTER 2022-01-19 15:16 | Emergency (ER) | payer OTHER ==
--- OUTSIDE RECORDS SUMMARY | 2022-01-19 15:21 | XMS REPORT | Continuity of Care Document ---
:1935 Author Organization [facility] t Address [address] [place] [address] Dr. [address]. [address] [place] [address] Care Team Providers Name Role Phone Gigi FUENTES, Edwardo Primary Care Physician ALLEGRA DUBOSE Attending Clinician Unavailable Nurse, [facility] Attending Clinician Unavailable Allegra Church Attending Clinician Tariq Bouchre Attending Clinician MARIA GUADALUPE TOUSSAINT Attending Clinician Unavailable Alma Dunn S Attending Clinician JARET CHAVEZ Attending Clinician Unavailable Doctor Unassigned, [place] Attending Clinician Unavailable Sarah Berg MD Attending Clinician SARAH BERG Attending Clinician Unavailable Fabi Lara Attending Clinician AFBI BOB Attending Clinician Unavailable Maria Guadalupe Toussaint MD Attending Clinician Lab, [facility] I Attending Clinician Unavailable Debi Costa Attending Clinician DEBI DUFF Attending Clinician Unavailable Ata Obando DO Attending Clinician ATA OBANDO Attending Clinician Unavailable TAA OBANDO Admitting Clinician Unavailable Payers Payer Name Policy Type Policy Number Effective Date Expiration Date S mervin MEDICARE PART A \T\ [id number] 2000 B 00:00:00 CONTINENTAL [id number] 2020 BENEFITS 00:00:00 Problems Condition Condition Condition Status Onset Resolution Last Treating Co mments Source Name Details Category Date Date Treatment Clinician Date Acute Acute Disease Active Methodi cholecysti cholecysti [address] [facility] t[facility] tis 00:00: Hospita 00 l [...] erosis in erosis in 00:00: [place] artery artery (disorder) (disorder) Active 05/05/2015 [...] 2021-10-26 Memoria (disorder) (disorder) 04:51:42 l Active [place] Problem 10/26/2021 [facility] Muscle Muscle Problem [...] He rmann Active Problem 10/26/2021 [facility] Lumbar Lumbar Problem Active 2021-10-26 Turner nereida radiculopa radiculopa 04:51:42 l thy thy [place] (disorder) (disorder) Active Problem 10/26/2021 [facility] Cervical Cervical Problem Active 2021-10-26 Memoria radiculopa radiculopa 04:51:42 l thy thy [place] (disorder) (disorder) Active Problem 10/26/2021 [facility] Confusiona Confusion Problem Active 2021-10-26 Memoria l state al state 04:51:42 l (disorder) (disorder) He rmann Active Problem 10/26/2021 [facility] Fracture Fracture Problem Active 2021-10-26 Memoria of rib of rib 04:51:42 l (disorder) (disorder) He rmann Active Problem 10/26/2021 [facility] Knee [...] Me moria (finding) (finding) 04:51:42 l Active [place] Problem 10/26/2021 [facility] Lumbar Lumbar Disease Active Methodi disc disc st disease disease Hospita with with l radiculopa radiculopa thy thy 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 Myoclonus Problem Resolve 2015-2021-10-26 2021-10-26 Memoria (finding) (finding) d 09-27 04:51:42 04:51:42 l Resolved 00:00: Cuco 09/28/2015 00 Problem 10/26/2021 [facility] Allergies, Adverse Reactions, Alerts Allergy Allergy Status Severity Reaction(s) Onset Inactive Treating Comm ents Source Name Type Date Date Clinician 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 03-[address] Vaccines adverse 00:00: Syndrome Hospi ta [...] Date Stop Date Source Natural brother Emphysema [facility] Natural brother Heart disease Method t [facility] Natural father Cerebral aneurysm Met [facility] Natural mother Emphysema [facility] Social History Social Habit Start Date Stop Date Quantity Comments Source History of Cigarette Smoker Universi ty of tobacco use [facility] History SDOH University o f Alcohol Frequency [place] [facility] History SDIA University o f Alcohol Std [place] [facility] History [facility] University o f Alcohol Binge [place] [facility] Exposure to 2021-10-14 2021-10-24 Not sure University of SARS-CoV-2 00:00:00 19:11:00 [place] [facility] (event) [facility] Tobacco use and 2021-10-24 2021-10-24 Smokeless tobacco Un iversity of exposure 00:00:00 00:00:00 non-user [facility] Cigarettes smoked 2018-03-26 2018-03-[address] current (pack per 00:00:00 00:00:00 Hospita l day) - Reported Cigarette 2018-03-26 2018-03-26 Mandaen pack-years 00:00:00 00:00:00 Hospital Alcohol intake 2018-03-26 2018-03-26 Current drinker of Me [facility]odist 00:00:00 00:00:00 alcohol (finding) Hospita l Alcohol Comment 2018-02-27 2018-02-[address] 00:00:00 00:00:00 Hospital Sex Assigned At [birth year] Mandaen 00:00:00 00:00:00 Hospital Smoking Status Start Date Stop Date Source Social History 2021-10-23 16:05:59 2021-10-23 16:05:59 [facility] Medications Ordered Filled Start Stop Current Ordering Indication Dosage Frequency Signature Comments Components Source Medication Medication Date Date Medication? 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, Weight gabapentin Yes See Memoria 600 mg oral 7-19 Instructio l tablet 15:32: ns, TAKE [place] 00 ONE TABLET BY MOUTH THREE TIMES A DAY, # 270 tab, 1 Refill(s), Pharmacy: [facility] [id number], 162.56, cm, 04/18/21 14:08:00 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, Height, 75, kg, 04/18/21 14:08:00 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, Weight WheelChair Yes 1 ea, Memori a 7-13 MISC, l 14:33: ONCALL, # [place] 00 1 ea, 0 Refill(s), 162.56, cm, 04/18/21 14:08:00 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, Height, 75, kg, 04/18/21 14:08:00 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, Weight WheelChair Yes 1 ea, Memori a 7-13 MISC, l 14:33: ONCALL, # [place] 00 1 ea, 0 Refill(s), 162.56, cm, 04/18/21 14:08:00 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, Height, 75, kg, 04/18/21 14:08:00 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, Weight baclofen 10 No 10 mg = 1 M emoria mg oral 7-13 tab, PO, l tablet 14:27: BID, # 60 Kevin n 00 tab, 2 Refill(s), Pharmacy: [facility] [id number], 162.56, cm, 04/18/21 14:08:00 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, Weight DULoxetine 2020-0 Yes See Memoria 30 mg oral 9-05 Instructio l delayed 20:18: ns, TAKE Kevin n release 00 ONE capsule CAPSULE BY MOUTH DAILY, # 30 unknown unit, 5 Refill(s), Pharmacy: [facility] [id number], 162.56, cm, 04/06/20 9:15:00 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, Height, 74.091, kg, 04/06/20 9:15:00 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, Weight DULoxetine 2020-0 Yes See Memoria 30 mg oral 9-05 Instructio l delayed 20:18: ns, TAKE Kevin n release 00 ONE capsule CAPSULE BY MOUTH DAILY, # 30 unknown unit, 5 Refill(s), Pharmacy: [facility] [id number], 162.56, cm, 04/06/20 9:15:00 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, Height, 74.091, kg, 04/06/20 9:15:00 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, Weight DULoxetine 2020-0 Yes See Memoria 30 mg oral 9-05 Instructio l delayed 20:18: ns, TAKE Kevin n release 00 ONE capsule CAPSULE BY MOUTH DAILY, # 30 unknown unit, 5 Refill(s), Pharmacy: [facility] [id number], 162.56, cm, 04/06/20 9:15:00 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, Height, 74.091, kg, 04/06/20 9:15:00 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, Weight DULoxetine 2020-0 Yes See Memoria 30 mg oral 3-04 Instructio l delayed 19:26: ns, TAKE Kevin n release 00 ONE capsule CAPSULE BY MOUTH DAILY, # 30 unknown unit, 5 Refill(s), Pharmacy: [place] [id number], 162.56, cm, 04/06/20 9:15:00 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, Height, 74.091, kg, 04/06/20 9:15:00 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, Weight DULoxetine 2021-0 Yes See Memoria 30 mg oral 3-04 Instructio l delayed 19:26: ns, TAKE Kevin n release 00 ONE capsule CAPSULE BY MOUTH DAILY, # 30 unknown unit, 5 Refill(s), Pharmacy: [facility] [id number], 162.56, cm, 04/06/20 9:15:00 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, Height, 74.091, kg, 04/06/20 9:15:00 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, Weight DULoxetine 202-0 Yes See Memoria 30 mg oral 3-04 Instructio l delayed 19:26: ns, TAKE Kevin n release 00 ONE capsule CAPSULE BY MOUTH DAILY, # 30 unknown unit, 5 Refill(s), Pharmacy: [facility] [id number], 162.56, cm, 04/06/20 9:15:00 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, Height, 74.091, kg, 04/06/20 9:15:00 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, Weight gabapentin 202-0 Yes See Memoria 600 MG Oral 1-28 Instructio l Tablet 15:42: ns, 1/2 [place] [Neurontin] 00 tab PO TID 90 day, # 180 tab, 1 Refill(s), Pharmacy: [place] [id number], 162.56, cm, 04/06/20 9:15:00 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, Height, 74.091, kg, 04/06/20 9:15:00 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, Weight gabapentin 2021-0 Yes See Memoria 600 MG Oral 1-28 Instructio l Tablet 15:42: ns, 1/2 [place] [Neurontin] 00 tab PO TID 90 day, # 180 tab, 1 Refill(s), Pharmacy: [facility] 256, 162.56, cm, 04/06/20 9:15:00 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, Height, 74.091, kg, 04/06/20 9:15:00 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, Weight gabapentin 2021-0 Yes See Memoria 600 MG Oral 1-28 Instructio l Tablet 15:42: ns, 1/2 [place] [Neurontin] 00 tab PO TID 90 day, # 180 tab, 1 Refill(s), Pharmacy: [facility] [place], 162.56, cm, 04/06/20 9:15:00 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, Height, 74.091, kg, 04/06/20 9:15:00 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, Weight gabapentin 2019-03 Yes 600 mg = 1 M emoria 600 MG Oral 1-21 tab, PO, l Tablet 01:47: TID, # 270 Elaine nn [Neurontin] 00 tab, 1 Refill(s), Pharmacy: [facility] [place], 162.56, cm, 01/27/20 11:01:00 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, Height, 72.727, kg, 01/27/20 11:01:00 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, Weight gabapentin 2019-03 Yes 600 mg = 1 M emoria 600 MG Oral 1-21 tab, PO, l Tablet 01:47: TID, # 270 Elaine nn [Neurontin] 00 tab, 1 Refill(s), Pharmacy: [facility] [place], 162.56, cm, 01/27/20 11:01:00 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, Height, 72.727, kg, 01/27/20 11:01:00 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, Weight gabapentin 2019-03 Yes 600 mg = 1 M emoria 600 MG Oral 1-21 tab, PO, l Tablet 01:47: TID, # 270 Elaine nn [Neurontin] 00 tab, 1 Refill(s), Pharmacy: [facility] [place], 162.56, cm, 01/27/20 11:01:00 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 losartan 25 2019-03 Yes 25mg Take 25 mg Univers mg tablet 0-12 by mouth ity of 14:20: daily. [place] [address] Medical Branch rosuvastati 2019-03 Yes 20mg Take 20 mg Univers n 20 mg 0-12 by mouth ity of tablet 14:20: at [place] [address] bedtime. Medical Branch gabapentin 2019-03 Yes 900mg Take 900 Un sabiha 300 mg 0-12 mg by ity of capsule 14:20: mouth 3 [place] [address] (three) Medical times Branch daily. apixaban 2019-03 Yes 2.5mg Take 2.5 Univ ers (ELIQUIS) 0-12 mg by ity of 2.5 mg 14:20: mouth 2 [place] tablet 35 (two) Medical times Branch daily. losartan 25 2019-03 Yes 25mg Take 25 mg Univers mg tablet 0-12 by mouth ity of 14:20: daily. [place] [address] Medical Branch rosuvastati 2019-03 Yes 20mg Take 20 mg Univers n 20 mg 0-12 by mouth ity of tablet 14:20: at [place] [address] bedtime. Medical Branch gabapentin 2019-03 Yes 900mg Take 900 Un sabiha 300 mg 0-12 mg by ity of capsule 14:20: mouth 3 [place] [address] (three) Medical times Branch daily. apixaban 2019-03 Yes 2.5mg Take 2.5 Univ ers (ELIQUIS) 0-12 mg by ity of 2.5 mg 14:20: mouth 2 [place] tablet 35 (two) Medical times [place] daily. losartan 25 2019-03 Yes 25mg Take 25 mg Univers mg tablet 0-12 by mouth ity of 14:20: daily. [address] Branch rosuvastati 2019-03 Yes 20mg Take 20 mg Univers n 20 mg 0-12 by mouth ity of tablet 14:20: at [place] [address] bedtime. Medical Branch gabapentin 2019-03 Yes 900mg Take 900 Un sabiha 300 mg 0-12 mg by ity of capsule 14:20: mouth 3 [place] [address] (three) Medical times Branch daily. apixaban 2019-03 Yes 2.5mg Take 2.5 Univ ers (ELIQUIS) 0-12 mg by ity of 2.5 mg 14:20: mouth 2 [place] tablet 35 (two) Medical times Branch daily. losartan 25 2019-03 Yes 25mg Take 25 mg Univers mg tablet 0-12 by mouth ity of 14:20: daily. [place] [address] Medical Branch rosuvastati 2019- Yes 20mg Take 20 mg Univers n 20 mg 0-12 by mouth ity of tablet 14:20: at [place] [address] bedtime. Medical Branch gabapentin 2019-03 Yes 900mg Take 900 Un sabiha 300 mg 0-12 mg by ity of capsule 14:20: mouth 3 [place] [address] (three) Medical times Branch daily. apixaban 2019-1 Yes 2.5mg Take 2.5 Univ ers (ELIQUIS) 0-12 mg by ity of 2.5 mg 14:20: mouth 2 [facility] 35 (two) Medical times Branch daily. losartan 25 2019-03 Yes 25mg Take 25 mg Univers mg tablet 0-12 by mouth ity of 14:20: daily. [place] [address] Medical Branch rosuvastati 2019-03 Yes 20mg Take 20 mg Univers n 20 mg 0-12 by mouth ity of tablet 14:20: at [place] [address] bedtime. Medical Branch DULoxetine Yes See Memoria 30 mg oral 7-29 Instructio l delayed 22:57: ns, TAKE Kevin n release 00 ONE capsule CAPSULE BY MOUTH DAILY, # 30 unknown unit, 6 Refill(s), Pharmacy: [facility] [id number], 165.1, cm, 07/30/19 9:05:00 CDT, Height, 75.909, kg, 07/30/19 9:05:00 CDT, Weight DULoxetine Yes See Memoria 30 mg oral 7-29 Instructio l delayed 22:57: ns, TAKE Kevin n release 00 ONE capsule CAPSULE BY MOUTH DAILY, # 30 unknown unit, 6 Refill(s), Pharmacy: [facility] [id number], 165.1, cm, 07/30/19 9:05:00 CDT, Height, 75.909, kg, 07/30/19 9:05:00 CDT, Weight DULoxetine Yes See Memoria 30 mg oral 7-29 Instructio l delayed 22:57: ns, TAKE Kevin n release 00 ONE capsule CAPSULE BY MOUTH DAILY, # 30 unknown unit, 6 Refill(s), Pharmacy: [facility] [id number], 165.1, cm, 07/30/19 9:05:00 CDT, Height, 75.909, kg, 07/30/19 9:05:00 CDT, Weight TAMSULOSIN Yes [id number] TAKE ONE Univers 0.4 mg 24 7-29 CAPSULE BY ity of hr capsule 00:00: MOUTH DAILY Medical Branch TAMSULOSIN 2019- Yes [id number] TAKE ONE Univers 0.4 mg 24 7-29 CAPSULE BY ity of hr capsule 00:00: MOUTH [place] DAILY Medical Branch TAMSULOSIN 2019- Yes [id number] TAKE ONE Univers 0.4 mg 24 7-29 CAPSULE BY ity of hr capsule 00:00: MOUTH DAILY Medical Branch TAMSULOSIN 2020-0 Yes [id number] TAKE ONE Univers 0.4 mg 24 7-29 CAPSULE BY ity of hr capsule 00:00: DAILY Medical Branch TAMSULOSIN 2020-0 Yes [id number] TAKE ONE Univers 0.4 mg 24 7-29 CAPSULE BY ity of hr capsule 00:00: DAILY Medical Branch gabapentin 2018-03 Yes See Memoria 600 MG Oral 1-22 Instructio l Tablet 20:41: ns, 1.5 [place] [Neurontin] 45 tab PO TID, # 540 tab, 2 Refill(s), Pharmacy: [place] [address] gabapentin 2018-03 Yes See Memoria 600 MG Oral 1-22 Instructio l Tablet 20:41: ns, 1.5 [place] [Neurontin] 45 tab PO TID, # 540 tab, 2 Refill(s), Pharmacy: [place] [address] gabapentin 2018-03 Yes See Memoria 600 MG Oral 1-22 Instructio l Tablet 20:41: ns, 1.5 [place] [Neurontin] 45 tab PO TID, # 540 tab, 2 Refill(s), Pharmacy: [place] [address] DUTASTERIDE 2019 Yes [id number] TAKE ONE Univers 0.5 mg 7-10 CAPSULE BY ity of capsule 00:00: MOUTH DAILY Medical Branch DUTASTERIDE 2019-0 Yes [id number] TAKE ONE Univers 0.5 mg 7-10 CAPSULE BY ity of capsule 00:00: [place] DAILY Medical Branch DUTASTERIDE 2019-0 Yes [id number] TAKE ONE Univers 0.5 mg 7-10 CAPSULE BY ity of capsule 00:00: DAILY Medical Branch DUTASTERIDE 2019 Yes [id number] TAKE ONE Univers 0.5 mg 7-10 CAPSULE BY ity of capsule 00:00: DAILY Medical Branch DUTASTERIDE 2019 Yes [id number] TAKE ONE Univers 0.5 mg 7-10 CAPSULE BY ity of capsule 00:00: DAILY Medical Branch gabapentin Yes See Memoria 600 MG Oral 6-28 Instructio l Tablet 13:51: ns, 1.5 [place] [Neurontin] 03 tab PO TID, # 540 tab, 2 Refill(s), Pharmacy: [place] [address] gabapentin 2019-0 Yes See Memoria 600 MG Oral 6-28 Instructio l Tablet 13:51: ns, 1.5 [place] [Neurontin] 03 tab PO TID, # 540 tab, 2 Refill(s), Pharmacy: [place] [address] gabapentin 2019-0 Yes See Memoria 600 MG Oral 6-28 Instructio l Tablet 13:51: ns, 1.5 [place] [Neurontin] 03 tab PO TID, # 540 tab, 2 Refill(s), Pharmacy: [place] [address] aspirin 2019-0 Yes 81mg QD Take 81 mg Meth hanane (ECOTRIN) 1-[address] 81 MG 13:23: daily. Hospita enteric 24 l coated tablet tamsulosin 2019-0 Yes .4mg QD Take 0.4 [facility] (FLOMAX) 1-[address] 0.4 mg 13:23: mouth Hospita capsule,ext 24 daily. l ended release 24hr CYANOCOBALA 2018-0 Yes Take by [facility] MIN, 04-[address] VITAMIN 13:23: Hospita B-12, 24 l (VITAMIN B-12 ORAL) dutasteride 2018-0 Yes .5mg QD Take 0.5 Me thodi (AVODART) 1-[address] 0.5 mg 13:23: mouth Hospita capsule 24 daily. l cholecalcif 2019-0 Yes QD Take by [facility]odi mateo, [address] vitamin D3, 13:23: daily. Hosp sami (VITAMIN D3 24 l ORAL) aspirin 2019-0 Yes 81mg QD Take 81 mg Meth hanane (ECOTRIN) -[address] 81 MG 13:23: daily. Hospita enteric 24 l coated tablet tamsulosin 2019-0 Yes .4mg QD Take 0.4 Met hodi (FLOMAX) 1-[address] 0.4 mg 13:23: mouth Hospita capsule,ext 24 daily. l ended release 24hr CYANOCOBALA 2019-0 Yes Take by Met hodi MIN, [address] VITAMIN 13:23: Hospita B-12, 24 l (VITAMIN B-12 ORAL) dutasteride 2019-0 Yes .5mg QD Take 0.5 Me thodi (AVODART) 1-[address] 0.5 mg 13:23: mouth Hospita capsule 24 daily. l cholecalcif 2019-0 Yes QD Take by Met hodi mateo, 1-[address] vitamin D3, 13:23: daily. Hosp sami (VITAMIN D3 24 l ORAL) pantoprazol 2019-0 Yes 40mg QD Take 1 Meth hanane e 1-08 tablet (40 st (PROTONIX) 00:00: mg total) Ho spita 40 MG EC 00 by mouth l tablet daily. pantoprazol 2019-0 Yes 40mg QD Take 1 Meth hanane e 1-08 tablet (40 st (PROTONIX) 00:00: mg total) Ho spita 40 MG EC 00 by mouth l tablet daily. ipratropium 2019-0 Yes 3mL [id number] Take 3 mL Methodi -albuterol - [id number] by st (DUO-NEB) 00:00: 3D nebulizati Ho spita 0.5-2.5 00 on every 6 l mg/mL (six) nebulizer hours while awake. naloxone 2019-0 Yes .2mg Infuse 0.5 Met hodi (NARCAN) 1-07 mL (0.[address] 0.4 mg/mL 00:00: total) Hospit a injection 00 into a l venous catheter once as needed for respirator y depression (as needed for RR rate 8 per minute). ipratropium 2019-0 Yes 3mL [id number] Take 3 mL Methodi -albuterol 1-[id number] (DUO-NEB) 00:00: 3D nebulizati Ho spita 0.5-2.5 00 on every 6 l mg/mL (six) nebulizer hours while awake. naloxone 2019-0 Yes .2mg Infuse 0.5 Met hodi (NARCAN) 1-07 mL (0.[address] 0.4 mg/mL 00:00: total) Hospit a injection 00 into a l venous catheter once as needed for respirator y depression (as needed for RR rate 8 per minute). Vital Signs Vital Name Observation Time Observation Value Comments Source Systolic blood 2021-10-25 00:11:00 117 mm[Hg] [facility] wilber of [facility] Diastolic blood 2021-10-25 00:11:00 86 mm[Hg] Unive rsity of pressure [place] [facility] Heart rate 2021-10-25 00:11:00 150 /min [facility] [place] [facility] Body temperature 2021-10-25 00:11:00 37.22 Maribell Univ ersity [facility] [place] [facility] Respiratory rate 2021-10-25 00:11:00 16 /min [facility] ers[facility] [place] [facility] Body weight 2021-10-25 00:11:00 77.111 kg [facility] [place] [facility] BMI 2021-10-25 00:11:00 28.29 kg/m2 [facility] [place] [facility] Oxygen saturation in 2021-10-25 00:11:00 94 /min University of Arterial blood by [facility] dejah Pulse oximetry Branch Systolic blood 2021-05-14 19:48:00 124 mm[Hg] Univer sity of pressure [place] [facility] Diastolic blood 2021-05-14 19:48:00 80 mm[Hg] Unive rsity of pressure [place] [facility] Heart rate 2021-05-14 19:48:00 77 /min [facility] [place] [facility] Body temperature 2021-05-14 19:48:00 36.56 Maribell Univ ers[facility] [place] [facility] Respiratory rate 2021-05-14 19:48:00 20 /min Univ ersity [facility] [place] [facility] Oxygen saturation in 2021-05-14 19:48:00 92 /min University of Arterial blood by [facility] Pulse oximetry Branch Body height 2021-05-14 17:35:00 167.6 cm [facility] [place] [facility] Body weight 2021-05-14 17:35:00 76.204 kg [facility] [place] [facility] BMI 2021-05-14 17:35:00 27.12 kg/m2 [facility] [place] [facility] Systolic blood 2020-12-13 18:20:00 114 mm[Hg] Univer sity of pressure [place] [facility] Diastolic blood 2020-12-13 18:20:00 69 mm[Hg] Unive rsity of pressure [place] [facility] Body height 2020-12-13 18:20:00 165.1 cm [facility] [place] [facility] Body weight 2020-12-13 18:20:00 73.029 kg [facility] [place] [facility] BMI 2020-12-13 18:20:00 26.79 kg/m2 [facility] Branch Systolic (mm Hg) 2021-10-23 16:05:00 Turner rial [place] Diastolic (mm Hg) 2021-10-23 16:05:00 Mem orial [place] Heart Rate 2021-10-23 16:05:00 Memorial [place] Respitory Rate 2021-10-23 16:05:00 Memori al [place] Systolic (mm Hg) 2021-09-19 14:03:00 [place] rial [place] Diastolic (mm Hg) 2021-09-19 14:03:00 Mem orial [place] Heart Rate 2021-09-19 14:03:00 Memorial [place] Respitory Rate 2021-09-19 14:03:00 Memori al [place] Systolic (mm Hg) 2021-04-18 20:08:00 Turner rial [place] Diastolic (mm Hg) 2021-04-18 20:08:00 Mem orial [place] Heart Rate 2021-04-18 20:08:00 Memorial [place] Respitory Rate 2021-04-18 20:08:00 Memori al [place] Height 2021-04-18 20:08:00 162.56 cm [facility] [place] Weight 2021-04-18 20:08:00 [facility] [place] BMI Calculated 2021-04-18 20:08:00 Memori al [place] Systolic (mm Hg) 2021-03-06 20:28:00 Turner rial [place] Diastolic (mm Hg) 2021-03-06 20:28:00 Mem orial [place] Heart Rate 2021-03-06 20:28:00 [facility] [place] Respitory Rate 2021-03-06 20:28:00 Memori al [place] Height 2021-03-06 20:28:00 165.1 cm Memorial [place] Weight 2021-03-06 20:28:00 [facility] [place] BMI Calculated 2021-03-06 20:28:00 Memori al [place] Systolic (mm Hg) 2020-11-09 14:54:00 Turner rial [place] Diastolic (mm Hg) 2020-11-09 14:54:00 Mem orial [place] Heart Rate 2020-11-09 14:54:00 [facility] [place] Respitory Rate 2020-11-09 14:54:00 [facility] [place] Systolic (mm Hg) 2020-04-06 15:15:00 [facility] [place] Diastolic (mm Hg) 2020-04-06 15:15:00 [facility] [place] Heart Rate 2020-04-06 15:15:00 [facility] Respitory Rate 2020-04-06 15:15:00 [facility] Height 2020-04-06 15:15:00 162.56 cm [facility] Weight 2020-04-06 15:15:00 [facility] BMI Calculated 2020-04-06 15:15:00 [facility] Systolic (mm Hg) 2020-02-25 20:24:00 [facility] Diastolic (mm Hg) 2020-02-25 20:24:00 [facility] Heart Rate 2020-02-25 20:24:00 [facility] Respitory Rate 2020-02-25 20:24:00 [facility] Height 2020-02-25 20:24:00 165.1 cm [facility] Weight 2020-02-25 20:24:00 [facility] BMI Calculated 2020-02-25 20:24:00 [facility] [place] Systolic (mm Hg) 2020-01-27 16:46:00 [facility] [place] Diastolic (mm Hg) 2020-01-27 16:46:00 [facility] Heart Rate 2020-01-27 16:46:00 [facility] Respitory Rate 2020-01-27 16:46:00 [facility] Height 2020-01-27 16:46:00 162.56 cm [facility] Weight 2020-01-27 16:46:00 [facility] BMI Calculated 2020-01-27 16:46:00 [facility] Temperature Oral (F) 2019-07-30 14:05:00 98.6 F [facility] Systolic (mm Hg) 2019-07-30 14:05:00 [facility] Diastolic (mm Hg) 2019-07-30 14:05:00 [facility] [place] Heart Rate 2019-07-30 14:05:00 [facility] Respitory Rate 2019-07-30 14:05:00 [facility] [place] Height 2019-07-30 14:05:00 165.1 cm [facility] Weight 2019-07-30 14:05:00 [facility] BMI Calculated 2019-07-30 14:05:00 [facility] Systolic (mm Hg) 2019-05-07 16:32:00 [facility] Diastolic (mm Hg) 2019-05-07 16:32:00 Mem [facility] [place] Heart Rate 2019-05-07 16:32:00 [facility] Respitory Rate 2019-05-07 16:32:00 [facility] Height 2019-05-07 16:32:00 165.1 cm [facility] Weight 2019-05-07 16:32:00 [facility] BMI Calculated 2019-05-07 16:32:00 [facility] Systolic (mm Hg) 2019-01-29 20:06:00 [facility] Diastolic (mm Hg) 2019-01-29 20:06:00 Mem [facility] [place] Heart Rate 2019-01-29 20:06:00 [facility] Respitory Rate 2019-01-29 20:06:00 [facility] [place] Height 2019-01-29 20:06:00 165.1 cm [facility] Weight 2019-01-29 20:06:00 [facility] BMI Calculated 2019-01-29 20:06:00 [facility] [place] Weight 2018-07-30 14:21:00 [facility] BMI Calculated 2018-07-30 14:21:00 [facility] Heart Rate 2018-07-30 14:21:00 [facility] Height 2018-07-30 14:21:00 167.64 cm [facility] Systolic (mm Hg) 2018-07-30 14:21:00 [facility] Diastolic (mm Hg) 2018-07-30 14:21:00 Mem orial [place] Procedures Procedure Date / Time Performing Clinician Source Performed XR LUMBAR SPINE 2 VW 2021-05-14 19:01:00 Alma Mccarthy [facility] XR KNEE <3 VW RIGHT 2021-05-14 19:01:00 [facility] SHOULDER 2+ VW RIGHT 2021-05-14 19:01:00 Alma Mccarthy [facility] CT HEAD WO CONTRAST 2021-05-14 18:42:14 Alma Mccarthy [facility] CONSENT/REFUSAL FOR 2021-05-14 17:22:17 Doctor Unassigned, No Un [facility] DIAGNOSIS AND TREATMENT Name Medical Branch NOTICE OF PRIVACY 2021-05-14 17:21:58 Doctor Unassigned, No [facility] [place] PRACTICES Name Medical Branch Laminectomy for [facility] decompression and exploration Plan of Care Planned Activity Planned Date Details Comments Source Future Scheduled 2022-01-12 HEPATITIS B VACCINES [facility] Test 05:39:19 (1 of 3 - 3-dose series) [code = HEPATITIS B VACCINES (1 of 3 - 3-dose series)] Future Scheduled 2022-01-12 COVID-19 VACCINE (#1) [facility] Hospital Test 05:39:19 [code = COVID-19 VACCINE (#1)] Future Scheduled 2022-01-12 SHINGLES VACCINES (1 [facility] Test 05:39:19 of 2) [code = SHINGLES VACCINES (1 of 2)] Future Scheduled 2022-01-12 65+ [facility]OCOCCAL [facility] Test 05:39:19 VACCINE (1 - PCV) [code = 65+ PNEUMOCOCCAL VACCINE (1 - PCV)] Future Scheduled 2022-01-12 INFLUENZA VACCINE Method [facility] Hospital Test 05:39:19 [code = INFLUENZA VACCINE] Future Scheduled 2022-01-12 HEPATITIS B VACCINES [facility] Test 05:39:19 (1 of 3 - 3-dose series) [code = HEPATITIS B VACCINES (1 of 3 - 3-dose series)] Future Scheduled 2022-01-12 COVID-19 VACCINE (#1) [facility] Hospital Test 05:39:19 [code = COVID-19 VACCINE (#1)] Future Scheduled 2022-01-12 SHINGLES VACCINES (1 [facility] Test 05:39:19 of 2) [code = SHINGLES VACCINES (1 of 2)] Future Scheduled 2022-01-12 65+ P[facility]UMOCOCCAL [facility] Test 05:39:19 VACCINE (1 - PCV) [code = 65+ PNEUMOCOCCAL VACCINE (1 - PCV)] Future Scheduled 2022-01-12 INFLUENZA VACCINE [facility] Test 05:39:19 [code = INFLUENZA VACCINE] Encounters Start End Encounter Admission Attending Care Care Encounter Source Date/Time Date/Time Type Type Clinicians Facility Department ID 2022-01-23 2022-01-23 Outpatient MHIE MHIE [id number] Memoria 11:15:00 11:15:00 29 l [place] 2022-01-23 2022-01-23 Outpatient MHIE ALESSANDRAIE [id number] Memoria 11:15:00 11:15:00 29 l [facility] 2021-10-24 2021-10-24 Outpatient R [facility]ENN[facility]ER [facility] [id number] Univers 20:00:00 20:00:00 [facility] 2021-10-24 2021-10-24 Nurse Nurse, [facility] 1.2.840.114 [id number] Univers 19:15:00 19:35:00 Visit Allegra Dubose [facility] [id number] [facility] 4.2.7.2.686 John as LEOLA?BLEA [phone] [address] MEDICAL OFFICE BUILDING 2021-10-24 2021-10-24 Outpatient Adán DUBOSE [facility] [id number] Univers 19:15:00 19:15:00 [facility] 2021-10-23 2021-10-24 Outpatient nullFlavo MNA [id number] Memoria 16:00:00 04:59:59 r Neurology 28 l Pop [place] 2021-10-23 2021-10-24 Outpatient nullFlavo MNA [id number] Memoria 16:00:00 04:59:59 r Neurology 28 l Pop [place] 2021-10-23 2021-10-23 Outpatient ALESSANDRA BoucherNJSCHBENEDICTO MISCHER [id number] 11:00:00 23:59:59 Tariq 28 [place] 2021-10-23 2021-10-23 Outpatient MHIE MHIE [id number] Memoria 11:00:00 11:00:00 28 l [place] 2021-10-16 2021-10-18 Outside nullFlavo MNA [id number] Memoria 13:21:22 04:59:59 Medical r Neurology 29 l Records [place] 2021-10-16 2021-10-18 Outside nullFlavo MNA [id number] Memoria 13:21:22 04:59:59 Medical r Neurology 29 l Records [place] 2021-10-16 2021-10-17 [id number] 08:21:22 23:59:59 29 2021-10-05 2021-10-05 Ambulatory nullFlavo MNA [id number] Memoria 14:00:00 14:00:00 Pre-Reg r Neurology 27 l Pop [place] 2021-10-05 2021-10-05 Ambulatory nullFlavo MNA [id number] Memoria 14:00:00 14:00:00 Pre-Reg r Neurology 27 l [place] 2021-10-05 2021-10-05 Outpatient Citlaly JACOB [facility] [id number] 09:00:00 09:00:00 Tariq 27 [place] 2021-10-03 2021-10-03 Outpatient MHIE MHIE [id number] Memoria 09:00:00 09:00:00 27 l [place] 2021-09-19 2021-09-20 Outpatient nullFlavo MNA [id number] Memoria 14:00:00 04:59:59 r Neurology 26 l Pop [place] 2021-09-19 2021-09-20 Outpatient nullFlavo MNA [id number] Memoria 14:00:00 04:59:59 r Neurology 26 l Pop [place] 2021-09-19 2021-09-19 Outpatient Citlaly JACOB [facility] [id number] 09:00:00 23:59:59 Tariq 26 [place] 2021-09-19 2021-09-19 Outpatient MHIE MHIE [id number] Memoria 09:00:00 09:00:00 26 john [place] 2021-09-05 2021-09-07 Outside nullFlavo MNA [id number] Memoria 16:58:30 04:59:59 Medical r Neurology 28 l Mar [place] 2021-09-05 2021-09-07 Outside nullFlavo MNA [id number] Memoria 16:58:30 04:59:59 Medical r Neurology 28 l Records Pop [place] 2021-09-05 2021-09-[address] [facility] [id number] 11:58:30 23:59:59 28 2021-08-09 2021-08-11 Outside nullFlavo MNA [id number] Memoria 15:30:38 04:59:59 Medical r Neurology 27 l Records Ppo [place] 2021-08-09 2021-08-11 Outside nullFlavo MNA [id number] Memoria 15:30:38 04:59:59 Medical r Neurology 27 l Records Pop [place] 2021-08-09 2021-08-10 Outpatient MHMISCHER MHMISCHER [id number] 10:30:38 23:59:59 27 2021-07-27 2021-07-27 Ambulatory nullFlavo MNA [id number] Memoria 15:15:00 15:15:00 Pre-Reg r Neurology 24 l Pop [place] 2021-07-27 2021-07-27 Ambulatory nullFlavo MNA [id number] Memoria 15:15:00 15:15:00 Pre-Reg r Neurology 24 l [place] 2021-07-27 2021-07-27 Outpatient MHIE MHIE [id number] Memoria 10:15:00 10:15:00 24 john [facility] 2021-07-27 2021-07-[address] [facility] [id number] 10:15:00 10:15:00 Tariq 24 [place] 2021-07-02 2021-07-02 Outpatient MHIE MHIE [id number] Memoria 14:40:00 14:40:00 25 john [place] 2021-07-02 2021-07-02 Outpatient MHIE MHIE [id number] Memoria 14:40:00 14:40:00 25 john [place] 2021-06-28 2021-06-30 Outside nullFlavo MNA [id number] Memoria 13:29:04 04:59:59 Medical r Neurology 26 l Records Pop [place] 2021-06-28 2021-06-30 Outside nullFlavo MNA [id number] Memoria 13:29:04 04:59:59 Medical r Neurology 26 l Records Pop [place] 2021-06-28 2021-06-29 Outpatient MHMISCHER MHMISCHER [id number] 08:29:04 23:59:59 26 2021-05-30 2021-06-01 Outside nullFlavo MNA [id number] Memoria 18:23:59 04:59:59 Medical r Neurology 25 l Records Pop [place] 2021-05-30 2021-06-01 Outside nullFlavo MNA [id number] Memoria 18:23:59 04:59:59 Medical r Neurology 25 l Records Pop [place] 2021-05-30 2021-05-31 Outpatient MHMISCHER MHMISCHER [id number] 13:23:59 23:59:59 25 2021-05-24 2021-05-24 Ambulatory nullFlavo MNA [id number] Memoria 18:45:00 18:45:00 Pre-Reg r Neurology 23 l Pop [place] 2021-05-24 2021-05-24 Ambulatory nullFlavo MNA [id number] Memoria 18:45:00 18:45:00 Pre-Reg r Neurology 23 l Pop [place] 2021-05-24 2021-05-24 Outpatient MHIE MHIE [id number] Memoria 13:45:00 13:45:00 23 l [place] 2021-05-24 2021-05-24 Outpatient Citlaly MISCHER MHMISCHER [id number] 13:45:00 13:45:00 Tariq 23 [place] 2021-05-23 2021-05-23 [facility] [id number] Univers 11:00:00 11:00:00 [facility]14 2021-05-14 [facility] [id number] Univers 11:36:00 14:58:00 Alma CHOU 350.1.13.10 roberto Rudd 4.2.7.2.686 [facility] [phone] [place] [id number] Branch 2021-05-14 2021-05-14 Outpatient Adán CHAVEZ [facility] [id number] Univers 11:15:00 11:15:00 JARET brewer [facility] 2021-05-14 2021-05-14 Outpatient R KATHY, [facility] ERT [id number] Univers 10:40:00 10:40:00 JARET brewer [facility] 2021-05-14 2021-05-14 Letter Doctor AVELINA 1.2.840.114 [id number] Univers 00:00:00 00:00:00 (Out) Unassigned, JOSE ALBERTO 350.1.13.10 [place] [facility] 4.2.7.2.686 John as [phone] [address] 2021-05-14 2021-05-14 Orders Doctor AVELINA 1.2.840.114 [id number] Univers 00:00:00 00:00:00 Only Unassigned, JOSE ALBERTO 350.1.13.10 [place] [facility] 4.2.7.2.686 John as [phone] [address] 2021-04-18 2021-04-19 Outpatient nullFlavo MNA [id number] Memoria 20:00:00 05:59:59 r Neurology 22 l Pop [place] 2021-04-18 2021-04-19 Outpatient nullFlavo MNA [id number] Memoria 20:00:00 05:59:59 r Neurology 22 l Pop [place] 2021-04-18 2021-04-[address] [id number] 14:00:00 23:59:59 Tariq 22 [place] 2021-04-18 2021-04-18 [facility] [id number] Memoria 14:00:00 14:00:00 22 l [place] 2021-03-06 2021-03-07 Outpatient nullFlavo MNA [id number] Memoria 20:15:00 05:59:59 r Neurology 21 l Pop [place] 2021-03-06 2021-03-07 Outpatient nullFlavo MNA [id number] Memoria 20:15:00 05:59:59 r Neurology 21 l Pop [place] 2021-03-06 2021-03-06 Outpatient NOHELIA Boucher MISCHER [id number] 14:15:00 23:59:59 Tariq 21 [place] 2021-03-06 2021-03-06 Outpatient MHIE MHIE [id number] Memoria 14:15:00 14:15:00 21 l [place] 2021-02-08 2021-02-08 Ambulatory nullFlavo MNA [id number] Memoria 16:15:00 16:15:00 Pre-Reg r Neurology 20 l Pop [place] 2021-02-08 2021-02-08 Ambulatory nullFlavo MNA [id number] Memoria 16:15:00 16:15:00 Pre-Reg r Neurology 20 l Pop [place] 2021-02-08 2021-02-08 Outpatient MHIE MHIE [id number] Memoria 10:15:00 10:15:00 20 l [place] 2021-02-08 2021-02-08 Outpatient NOHELIA Boucher MISCHER [id number] 10:15:00 10:15:00 Tariqlisa Sauceda 2020-12-13 2020-12-13 Office [facility] [id number] [facility] 13:45:00 14:28:50 Visit Sarah [facility] 350.1.13.10 y of [place] 4.2.7.2.686 John as LEOLA?BLEA [phone] [address] MEDICAL OFFICE [facility] 2020-12-13 2020-12-13 Outpatient [facility] [id number] Univers 13:45:00 14:28:50 SARAH [facility] 2020-12-13 2020-12-13 Out[facility] [id number] Univers 13:45:00 13:45:00 SARAH brewer [facility] 2020-11-09 2020-11-10 Outpatient nullFlavo MNA [id number] Memoria 15:00:00 04:59:59 r Neurology 19 l Pop [place] 2020-11-09 2020-11-10 Outpatient nullFlavo MNA [id number] Memoria 15:00:00 04:59:59 r Neurology 19 l [place] 2020-11-09 2020-11-09 Outpatient NOHELIA Boucher MHMISCHER [id number] 10:00:00 23:59:59 Tariq Sauceda 2020-11-09 2020-11-09 Outpatient MHIE MHIE [id number] Memoria 10:00:00 10:00:00 19 l [place] 2020-10-26 2020-10-28 Outside nullFlavo MNA [id number] Memoria 19:39:10 04:59:59 Medical r Neurology 24 l Records Pop [place] 2020-10-26 2020-10-28 Outside nullFlavo MNA [id number] Memoria 19:39:10 04:59:59 Medical r Neurology 24 l Records Pop [place] 2020-10-26 2020-10-[address] [facility] [id number] 14:39:10 23:59:59 24 2020-10-27 2020-10-27 Orders Doctor AVELINA 1.2.840.114 [id number] Univers 00:00:00 00:00:00 Only Unassigned, JOSE ALBERTO 350.1.13.10 [place] [facility] 4.2.7.2.686 John as [phone] [facility] dejah 009 Branch 2020-10-17 2020-10-19 Outside nullFlavo MNA [id number] Memoria 14:33:42 04:59:59 Medical r Neurology 23 l Records Pop [place] 2020-10-17 2020-10-19 Outside nullFlavo MNA [id number] Memoria 14:33:42 04:59:59 Medical r Neurology 23 l Records Pop [place] 2020-10-17 2020-10-[address] [facility] [id number] 09:33:42 23:59:59 23 2020-10-03 2020-10-05 Outside nullFlavo MNA [id number] Memoria 14:05:31 04:59:59 Medical r Neurology 22 l Records Pop [place] 2020-10-03 2020-10-05 Outside nullFlavo MNA [id number] Memoria 14:05:31 04:59:59 Medical r Neurology 22 l Records Pop [place] 2020-10-03 2020-10-04 Outpatient MHMISCHER MISCHER [id number] 09:05:31 23:59:59 22 2020-09-12 2020-09-14 Outside nullFlavo MNA [id number] Memoria 13:15:26 04:59:59 Medical r Neurology 21 l Records Pop [place] 2020-09-12 2020-09-14 Outside nullFlavo MNA [id number] Memoria 13:15:26 04:59:59 Medical r Neurology 21 l Records Pop [place] 2020-09-12 2020-09-13 Outpatient MHMISCHER MHMISCHER [id number] 08:15:26 23:59:59 21 2020-09-01 2020-09-03 Outside nullFlavo MNA [id number] Memoria 21:41:20 04:59:59 Medical r Neurology 20 l Records Pop [place] 2020-09-01 2020-09-03 Outside nullFlavo MNA [id number] Memoria 21:41:20 04:59:59 Medical r Neurology 20 l Records Pop [place] 2020-09-01 2020-09-02 Outpatient MHMISCHER MHMISCHER [id number] 16:41:20 23:59:59 20 2020-08-12 2020-08-14 Outside nullFlavo MNA [id number] Memoria 23:48:44 04:59:59 Medical r Neurology 19 l Records Pop [place] 2020-08-12 2020-08-14 Outside nullFlavo MNA [id number] Memoria 23:48:44 04:59:59 Medical r Neurology 19 l Records Pop [place] 2020-08-12 2020-08-13 Outpatient MHMISCHER MHMISCHER [id number] 18:48:44 23:59:59 19 2020-08-03 2020-08-03 Office Lisbeth SDTIFFANI 1.2.840.114 [id number] Univers 10:22:04 10:59:30 Visit [facility] 350.1.13.10 it y of Surgical 4.2.7.2.686 John as Specialti [id number] Me dical es [address] [place] 2020-08-03 2020-08-03 [facility] [id number] Univers 10:00:00 10:00:00 [facility] 2020-07-27 2020-07-27 [facility] 1.2.840.114 [id number] Univers 10:23:38 10:56:44 Visit [facility] 350.1.13.10 it y of Surgical 4.2.7.2.686 John as Specialti [id number] Id dical es 198 [facility] 2020-07-27 2020-07-27 Outpatient [facility] [id number] Univers 10:30:00 10:30:00 [facility] 2020-07-20 2020-07-20 [facility] 1.2.840.114 [id number] Univers 10:38:06 10:53:06 Visit [facility] 350.1.13.10 it y of Surgical 4.2.7.2.686 John as Specialti [id number] Id dical es 198 [facility] 2020-07-20 2020-07-20 Outpatient [facility] [id number] Univers 10:45:00 10:45:00 [facility] 2020-07-17 2020-07-17 Orders Doctor QUAN 1.2.840.114 [id number] Univers 00:00:00 00:00:00 Only Unassigned, JOSE ALBERTO 350.1.13.10 [place] [facility] 4.2.7.2.686 John as [phone] [address] 2020-07-11 2020-07-11 Ambulatory nullFlavo MNA [id number] Memoria 15:00:00 15:00:00 Pre-Reg r Neurology 18 l Pop [place] 2020-07-11 2020-07-11 Ambulatory nullFlavo MNA [id number] Memoria 15:00:00 15:00:00 Pre-Reg r Neurology 18 l Pop [place] 2020-07-11 2020-07-11 Outpatient JUSTIN ANDERSON [id number] Memoria 10:00:00 10:00:00 18 l [place] 2020-07-11 2020-07-11 [address]A Boucher[address]ISCH[address] [facility] [id number] 10:00:00 10:00:00 Tariq [place] Sauceda 2020-07-03 2020-07-03 Office Otis [facility] [id number] [id number] Univers 14:05:02 14:20:59 Visit Sarah Berry [facility] 350.1.13.10 it y of Surgical 4.2.7.2.686 John as Specialti [id number] Id dical es [address] [place] 2020-07-03 2020-07-03 [facility] [id number] Univers 14:15:00 14:15:00 SARAH brewer [facility] 2020-06-20 2020-06-22 Outside nullFlavo MNA [id number] Memoria 14:09:53 04:59:59 Medical r Neurology 18 l Records [place] 2020-06-20 2020-06-22 Outside nullFlavo MNA [id number] Memoria 14:09:53 04:59:59 Medical r Neurology 18 l Records [place] 2020-06-20 2020-06-21 Outpatient MHMISCHER MHMISCHER [id number] 09:09:53 23:59:59 18 2020-06-12 2020-06-14 Outside nullFlavo MNA [id number] Memoria 20:48:48 04:59:59 Medical r Neurology 17 l Records [place] 2020-06-12 2020-06-14 Outside nullFlavo MNA [id number] Memoria 20:48:48 04:59:59 Medical r Neurology 17 l Records [place] 2020-06-12 2020-06-13 Outpatient MHMISCHER MHMISCHER [id number] 15:48:48 23:59:59 17 2020-05-23 2020-05-25 Outside nullFlavo MNA [id number] Memoria 20:20:15 04:59:59 Medical r Neurology 16 l Records [place] 2020-05-23 2020-05-25 Outside nullFlavo MNA [id number] Memoria 20:20:15 04:59:59 Medical r Neurology 16 l Records [place] 2020-05-23 2020-05-24 Outpatient MHMISCHER MHMISCHER [id number] 15:20:15 23:59:59 16 2020-05-11 2020-05-13 Outside nullFlavo MNA [id number] Memoria 14:57:14 05:59:59 Medical r Neurology 15 l Records [place] 2020-05-11 2020-05-13 Outside nullFlavo MNA [id number] Memoria 14:57:14 05:59:59 Medical r Neurology 15 l Records Pop [place] 2020-05-11 2020-05-12 Outpatient MHMISCHER MHMISCHER [id number] 08:57:14 23:59:59 15 2020-05-11 2020-05-12 Between nullFlavo MNA [id number] Memoria 19:26:29 19:26:29 Visit r Neurology 17 l Pop [place] 2020-05-11 2020-05-12 Between nullFlavo MNA [id number] Memoria 19:26:29 19:26:29 Visit r Neurology 17 l Pop [place] 2020-05-11 2020-05-12 Outpatient MHMISCHER MHMISCHER [id number] 13:26:29 13:26:29 17 2020-05-05 2020-05-05 [facility] 1.2.840.114 [id number] Univers 08:29:03 23:59:00 Encounter [facility] 350.1.13.10 ity of Surgical 4.2.7.2.686 John as Specialti [id number] Id dical es 809 [facility] 2020-05-05 2020-05-05 Outpatient [facility] [id number] Univers 08:29:03 23:59:00 [facility] 2020-05-05 2020-05-[address]807.307 [id number] Univers 08:14:43 09:03:52 Visit [facility] 350.1.13.10 it y of Surgical 4.2.7.2.686 John as Specialti [id number] Me dical es [address] [place] 2020-05-03 2020-05-03 Telephone [facility] 1.2.840.114 [id number] Univers 00:00:00 00:00:00 Sarah Berry [facility] 350.1.13.10 it y of Surgical 4.2.7.2.686 John as Specialti [id number] Me dical es [address] [place] 2020-04-11 2020-04-13 Outside nullFlavo MNA [id number] Memoria 21:31:30 05:59:59 Medical r Neurology 14 l Records [place] 2020-04-11 2020-04-13 Outside nullFlavo MNA [id number] Memoria 21:31:30 05:59:59 Medical r Neurology 14 l Records [place] 2020-04-11 2020-04-12 Outpatient MHMISCHER MHMISCHER [id number] 15:31:30 23:59:59 14 2020-04-06 2020-04-07 Outpatient nullFlavo MNA [id number] Memoria 15:00:00 05:59:59 r Neurology 17 l Pop [place] 2020-04-06 2020-04-07 Outpatient nullFlavo MNA [id number] Memoria 15:00:00 05:59:59 r Neurology 17 l Pop [place] 2020-04-06 2020-04-06 Outpatient Citlaly MISCHER MHMISCHER [id number] 09:00:00 23:59:59 Tariq 17 [place] 2020-04-06 2020-04-06 Outpatient MHIE MHIE [id number] Memoria 09:00:00 09:00:00 17 l [place] 2020-04-05 2020-04-05 Office [facility] [id number] Univers 14:33:47 15:08:49 Visit Sarah Berry [facility] 350.1.13.10 it y of Surgical 4.2.7.2.686 John as Specialti [id number] Me dical es [address] [place] 2020-04-05 2020-04-05 [facility] [id number] Univers 14:30:00 14:30:00 SARAH plascenciathaddeus of [facility] 2020-03-30 2020-04-01 Outside nullFlavo MNA [id number] Memoria 18:38:14 05:59:59 Medical r Neurology 13 l Records Pop [place] 2020-03-30 2020-04-01 Outside nullFlavo MNA [id number] Memoria 18:38:14 05:59:59 Medical r Neurology 13 l Records Pop [place] 2020-03-30 2020-03-31 Outpatient MHMISCHER MHMISCHER [id number] 12:38:14 23:59:59 13 2020-03-27 2020-03-27 Orders Doctor AVELINA 1.2.840.114 [id number] Univers 00:00:00 00:00:00 Only Unassigned, JOSE ALBERTO [id number] ity of [place] [facility] [id number] John as [id number] [address] 2020-02-25 2020-02-26 Outpatient nullFlavo MNA [id number] Memoria 20:00:00 05:59:59 r Neurology 16 l [place] 2020-02-25 2020-02-26 Outpatient nullFlavo MNA [id number] Memoria 20:00:00 05:59:59 r Neurology 16 l [place] 2020-02-25 2020-02-25 Outpatient FAZAL BoucherSCHER MISCHER [id number] 14:00:00 23:59:59 Tariq 16 [place] 2020-02-25 2020-02-25 Outpatient MHIE MHIE [id number] Memoria 14:00:00 14:00:00 16 l [place] 2020-01-27 2020-01-28 Outpatient nullFlavo MNA [id number] Memoria 16:45:00 05:59:59 r Neurology 15 l [place] 2020-01-27 2020-01-28 Outpatient nullFlavo MNA [id number] Memoria 16:45:00 05:59:59 r Neurology 15 l Pop [place] 2020-01-27 2020-01-27 Outpatient Citlaly MHMISCHER MHMISCHER [id number] 10:45:00 23:59:59 Tariq 15 [place] 2020-01-27 2020-01-27 Outpatient MHIE MHIE [id number] Memoria 10:45:00 10:45:00 15 l [place] 2020-01-17 2020-01-19 Outside nullFlavo MNA [id number] Memoria 14:53:42 05:59:59 Medical r Neurology 11 l Records [place] 2020-01-17 2020-01-19 Outside nullFlavo MNA [id number] Memoria 14:53:42 05:59:59 Medical r Neurology 11 l Records [place] 2020-01-17 2020-01-18 Outpatient MHMISCHER MHMISCHER [id number] 08:53:42 23:59:59 11 2019-12-29 2019-12-31 Outside nullFlavo MNA [id number] Memoria 14:56:04 04:59:59 Medical r Neurology 10 l Records [place] 2019-12-29 2019-12-31 Outside nullFlavo MNA [id number] Memoria 14:56:04 04:59:59 Medical r Neurology 10 l Records [place] 2019-12-29 2019-12-30 Outpatient MHMISCHER MHMISCHER [id number] 09:56:04 23:59:59 10 2019 2019-12-22 Outside nullFlavo MNA [id number] Memoria 16:12:08 04:59:59 Medical r Neurology 09 l Records [place] 2019 2019-12-22 Outside nullFlavo MNA [id number] Memoria 16:12:08 04:59:59 Medical r Neurology 09 l Records [place] 2019-12-22 2019-12-22 [address]840.114 [id number] Univers 00:00:00 00:00:00 Particle Code 350.1.13.10 it y of [place] 4.2.7.2.686 John as Professio [phone] [address] One 2019-12-22 2019-12-22 [address]840.114 [id number] 00:00:00 00:00:00 [facility] 350.1.13.10 [place] 4.2.7.2.686 Professio [phone] [place] [address] Office Building [facility] 2019 2019-12-[address] [facility] [id number] 11:12:08 23:59:59 2019 2019 [facility], [facility] I [facility] 1.2. 840.114 [id number] Univers 14:33:07 14:38:53 Visit Maria Guadalupe Toussaint [facility] 350.1.13 .10 ity of [place] 4.2.7.2.686 John as Professio [phone] [address] Office [facility] 2019 2019 [facility], [facility] 1.2.840.114 [id number] 14:33:07 14:38:53 Visit [facility] 350.1.13.10 [place] 4.2.7.2.686 Professio [phone] [place] [address] Office [facility] 2019 2019 Office [facility] 1.2.840.114 [id number] Univers 14:04:23 14:19:23 Visit Maria Guadalupe [facility] 350.1.13.10 it y of [place] 4.2.7.2.686 John as Professio [phone] [address] Office [facility] 2019 2019 Office [facility] 1.2.840.114 [id number] 14:04:23 14:19:23 Visit [facility] 350.1.13.10 [place] 4.2.7.2.686 Professio [phone] [place] [address] Office Building [facility] 2019 2019 Outpatient R [facility] [id number] Univers 14:00:00 14:00:00 MARIA GUADALUPE brewer of [facility] 2019-12-01 2019-12-03 Outside nullFlavo MNA [id number] Memoria 15:09:41 04:59:59 Medical r Neurology 08 l Records [place] 2019-12-01 2019-12-03 Outside nullFlavo MNA [id number] Memoria 15:09:41 04:59:59 Medical r Neurology 08 l Records [place] 2019-12-01 2019-12-02 Outpatient MHMISCHER MHMISCHER [id number] 10:09:41 23:59:59 08 2019-11-22 2019-11-24 Outside nullFlavo MNA [id number] Memoria 19:18:01 04:59:59 Medical r Neurology 07 l Records Pop [place] 2019-11-22 2019-11-24 Outside nullFlavo MNA [id number] Memoria 19:18:01 04:59:59 Medical r Neurology 07 l Records [place] 2019-11-22 2019-11-23 Outpatient MHMISCHER MHMISCHER [id number] 14:18:01 23:59:59 07 2019-11-02 2019-11-02 Ambulatory nullFlavo MNA [id number] Memoria 14:45:00 14:45:00 Pre-Reg r Neurology 13 l [place] 2019-11-02 2019-11-02 Ambulatory nullFlavo MNA [id number] Memoria 14:45:00 14:45:00 Pre-Reg r Neurology 14 l [place] 2019-11-02 2019-11-02 Ambulatory nullFlavo MNA [id number] Memoria 14:45:00 14:45:00 Pre-Reg r Neurology 14 l Pop [place] 2019-11-02 2019-11-02 Ambulatory nullFlavo MNA [id number] Memoria 14:45:00 14:45:00 Pre-Reg r Neurology 13 l [facility] [place] 2019-11-02 2019-11-02 Outpatient MHIE MHIE [id number] Memoria 09:45:00 09:45:00 13 l [place] 2019-11-02 2019-11-02 Outpatient MHIE MHIE [id number] Memoria 09:45:00 09:45:00 14 john [place] 2019-11-02 2019-11-02 Outpatient FAZAL BoucherSCHER MISCHER [id number] 09:45:00 09:45:00 Tariq 14 [place] 2019-11-02 2019-11-02 Outpatient FAZAL BoucherSCHER MISCHER [id number] 09:45:00 09:45:00 Tariq 13 [place] 2019-10-28 2019-10-28 Telephone [facility] 1.2.840.114 [id number] Univers 00:00:00 00:00:00 Maria Guadalupe [facility] 350.1.13.10 it y of [place] 4.2.7.2.686 John as Professio [phone] [address] Office Building One 2019-10-27 2019-10-27 [facility] 1.2.490.283 [id number] Univers 14:29:56 23:59:00 Encounter Maria Guadalupe [place] 350.1.13.10 ity of [place] 4.2.7.2.686 [phone] [address] 2019-10-27 2019-10-27 [facility] 1.2.840.114 [id number] Univers 09:30:00 14:28:00 Encounter Debi Howard [place] 350.1.13.10 ity of [place] 4.2.7.2.686 [facility] [phone] [address] 2019-10-27 2019-10-27 Outpatient R [facility] [id number] Univers 00:00:00 00:00:00 DEBI ity of [facility] 2019-10-27 2019-10-27 Orders Doctor AVELINA 1.2.840.114 [id number] Univers 00:00:00 00:00:00 Only Unassigned, JOSE ALBERTO 350.1.13.10 ity of [place] [facility] 4.2.7.2.686 John as [phone] [address] 2019-10-27 2019-10-27 Telephone [facility] 1.2.840.114 [id number] Univers 00:00:00 00:00:00 Maria Guadalupe [facility] 350.1.13.10 it y of [place] 4.2.7.2.686 John as essio [phone] [address] Office Building One 2019-10-26 2019-10-26 Telephone [facility] 1.2.840.114 [id number] Univers 00:00:00 00:00:00 Maria Guadalupe [facility] 350.1.13.10 it y of [place] 4.2.7.2.686 John as Professio [phone] [address] 2019-10-06 2019-10-06 Refill [facility] 1.2.840.114 [id number] Univers 00:00:00 00:00:00 Maria Guadalupe Muñoz 350.1.13.10 it y of [place] 4.2.7.2.686 John as Professio [phone] [address] 2019-09-21 2019-09-21 Telephone [facility] 1.2.840.114 [id number] Univers 00:00:00 00:00:00 Maria Guadalupe [place] 350.1.13.10 i ty of [place] 4.2.7.2.686 [place] Profess[place] [phone] [address] 2019-09-21 2019-09-21 Orders Doctor AVELINA 1.2.840.114 [id number] Univers 00:00:00 00:00:00 Only Unassigned, JOSE ALBERTO 350.1.13.10 ity of [place] [facility] 4.2.7.2.686 John as [phone] [address] 2019-09-06 2019-09-06 Orders Doctor AVELINA 1.2.840.114 [id number] Univers 00:00:00 00:00:00 Only Unassigned, JOSE ALBERTO 350.1.13.10 ity of [place] [facility] 4.2.7.2.686 John as [phone] [address] 2019-07-30 2019-07-31 Outpatient nullFlavo MNA [id number] Memoria 14:15:00 04:59:59 r Neurology 11 l [facility] [place] 2019-07-30 2019-07-31 Outpatient nullFlavo MNA [id number] Memoria 14:15:00 04:59:59 r Neurology 11 l Pop [place] 2019-07-30 2019-07-30 Outpatient Citlaly MISCHER MISCHER [id number] 09:15:00 23:59:59 Tariq Sauceda 2019-07-30 2019-07-30 Outpatient MHIE MHIE [id number] Memoria 09:15:00 09:15:00 11 l [place] 2019-07-07 2019-07-07 Refill [facility] 1.2.840.114 [id number] Univers 00:00:00 00:00:00 [facility] 350.1.13.10 it y of [place] 4.2.7.2.686 Jonh as Professio [phone] [address] Office [facility] 2019-06-23 2019-06-23 Telephone [facility] 1.2.840.114 [id number] Univers 00:00:00 00:00:00 [facility] 350.1.13.10 it y of [place] 4.2.7.2.686 John as Professio [phone] [address] 2019-06-22 2019-06-22 Emergency [facility] 1.2.400.678 [id number] Univers 12:48:01 14:20:00 Ata [place] 350.1.13.10 i ty of [place] 4[place]2.7.2.686 [place] [phone] [facility] 084 [place] 2019-06-22 2019-06-22 Emergency X [facility] ERT [id number] Univers 12:48:01 14:20:00 ATA itthaddeus of [facility] 2019-06-22 2019-06-22 Telephone [facility] 1.2.840.114 [id number] Univers 00:00:00 00:00:00 [facility] 350.1.13.10 it y of [place] 4.2.7.2.686 John as Professio [phone] [address] Office [facility] 2019-05-27 2019-05-27 Orders Doctor AVELINA 1.2.840.114 [id number] Univers 00:00:00 00:00:00 Only Unassigned, JOSE ALBERTO 350.1.13.10 ity of [place] [facility] 4.2.7.2.686 John as [phone] [facility] 009 [place] 2019-05-07 2019-05-08 Outpatient nullFlavo MNA [id number] Memoria 17:00:00 05:59:59 r Neurology 12 john [facility] 2019-05-07 2019-05-08 Outpatient nullFlavo MNA [id number] Memoria 17:00:00 05:59:59 r Neurology 12 john [place] 2019-05-07 2019-05-07 Outpatient Citlaly MHMISCHER MHMISCHER [id number] 11:00:00 23:59:59 Tariq [facility] 2019-05-07 2019-05-07 Outpatient MHIE MHIE [id number] Memoria 11:00:00 11:00:00 12 [facility] 2019-03-25 2019-03-25 Office Rafiq, [facility] 1.2.840.114 [id number] Univers 13:36:36 14:30:43 Visit [facility] 350.1.13.10 i ty of [place] 4.2.7.2.686 John as Professio [phone] Id dical nal 044 [place] Office [facility] 2019-03-25 2019-03-25 Orders Doctor AVELINA 1.2.840.114 [id number] Univers 00:00:00 00:00:00 Only Unassigned, JOSE ALBERTO 350.1.13.10 ity of [place] [facility] 4.2.7.2.686 John as [phone] [address] 2019-01-29 2019-01-30 Outpatient nullFlavo MNA [id number] Memoria 19:45:00 05:59:59 r Neurology 10 john [facility] 2019-01-29 2019-01-30 Outpatient nullFlavo MNA [id number] Memoria 19:45:00 05:59:59 r Neurology 10 john [facility] 2019-01-29 2019-01-29 Outpatient Citlaly MHMISCHER MHMISCHER [id number] 13:45:00 23:59:59 Tariq [facility] 2019-01-29 2019-01-29 Outpatient MHIE MHIE [id number] Memoria 13:45:00 13:45:00 10 john [place] 2019-01-19 2019-01-19 Ambulatory nullFlavo MNA [id number] Memoria 19:00:00 19:00:00 Pre-Reg r Neurology 09 l [place] [facility] 2019-01-19 2019-01-19 Ambulatory nullFlavo MNA [id number] Memoria 19:00:00 19:00:00 Pre-Reg r Neurology 09 john [place] 2019-01-19 2019-01-19 Outpatient MHIE MHIE [id number] Memoria 13:00:00 13:00:00 09 john [place] 2019-01-19 2019-01-[address] [facility] [id number] 13:00:00 13:00:00 Tariqlisa Sauceda 2018-11-03 2018-11-03 Ambulatory nullFlavo MNA [id number] Memoria 14:15:00 14:15:00 Pre-Reg r Neurology 08 john [place] 2018-11-03 2018-11-03 Ambulatory nullFlavo MNA [id number] Memoria 14:15:00 14:15:00 Pre-Reg r Neurology 08 john Lord [place] 2018-11-03 2018-11-03 Outpatient MHIE MHIE [id number] Memoria 09:15:00 09:15:00 08 john [place] 2018-11-03 2018-11-[address] [facility] [facility] [id number] 09:15:00 09:15:00 Tariq Oscar Sauceda 2018-07-30 2018-07-31 Outpatient nullFlavo MNA [id number] Memoria 14:15:00 04:59:59 r Neurology 07 john [facility] [place] 2018-07-30 2018-07-31 Outpatient nullFlavo MNA [id number] Memoria 14:15:00 04:59:59 r Neurology 07 john Lord [place] 2018-07-30 2018-07-[address] [facility] [id number] 09:15:00 23:59:59 Tariq Rubio Sauceda 2018-07-30 2018-07-30 Outpatient MHIE MHIE [id number] Memoria 09:15:00 09:15:00 07 john [place] 2018-06-18 2018-06-18 Outpatient MHIE IE [id number] Memoria 16:00:00 16:00:00 06 john [place] 2018-06-18 2018-06-18 Outpatient MHIE MHIE [id number] Memoria 16:00:00 16:00:00 06 l [place] 2018-06-02 2018-06-02 Outpatient MHIE IE [id number] Memoria 08:30:00 08:30:00 05 john [place] 2018-06-02 2018-06-02 Outpatient MHIE IE [id number] Memoria 08:30:00 08:30:00 05 john [place] 2018-04-15 2018-04-17 Outside nullFlavo MNA [id number] Memoria 20:22:00 05:59:59 Medical r Neurology 05 l Records [place] 2018-04-15 2018-04-17 Outside nullFlavo MNA [id number] Memoria 20:22:00 05:59:59 Medical r Neurology 05 l Records Pop [place] 2018-04-15 2018-04-16 Outpatient MHMISCHER MHMISCHER [id number] 14:22:00 23:59:59 2018-04-10 2018-04-12 Outside nullFlavo MNA [id number] Memoria 19:36:00 05:59:59 Medical r Neurology 04 l Records [place] 2018-04-10 2018-04-12 Outside nullFlavo MNA [id number] Memoria 19:36:00 05:59:59 Medical r Neurology 04 l Records [place] 2018-04-10 2018-04-11 Outpatient MHMISCHER MHMISCHER [id number] 13:36:00 23:59:59 2018-03-23 2018-03-25 Outside nullFlavo MNA [id number] Memoria 20:14:00 05:59:59 Medical r Neurology 03 l Records [place] 2018-03-23 2018-03-25 Outside nullFlavo MNA [id number] Memoria 20:14:00 05:59:59 Medical r Neurology 03 l Records Pop [place] 2018-03-23 2018-03-24 Outpatient MHMISCHER MHMISCHER [id number] 14:14:00 23:59:59 2018-03-14 2018-03-16 Outside nullFlavo MNA [id number] Memoria 16:20:00 05:59:59 Medical r Neurology 02 l Records Pop [place] 2018-03-14 2018-03-16 Outside nullFlavo MNA [id number] Memoria 16:20:00 05:59:59 Medical r Neurology 02 l [place] 2018-03-14 2018-03-15 Outpatient MHMISCHER MHMISCHER [id number] 10:20:00 23:59:59 02 2018-02-04 2018-02-04 Ambulatory nullFlavo MNA [id number] Memoria 15:45:00 15:45:00 Pre-Reg r Neurology 04 l [place] 2018-02-04 2018-02-04 Ambulatory nullFlavo MNA [id number] Memoria 15:45:00 15:45:00 Pre-Reg r Neurology 04 john [place] 2018-02-04 2018-02-04 Outpatient MHIE MHIE [id number] Memoria 09:45:00 09:45:00 04 john [place] 2018-02-04 2018-02-[address] [facility] [facility] [id number] 09:45:00 09:45:00 Tariq 04 [place] 2017-12-23 2017-12-23 Ambulatory nullFlavo MNA [id number] Memoria 14:00:00 14:00:00 Pre-Reg r Neurology 01 john [place] 2017-12-23 2017-12-23 Ambulatory nullFlavo MNA [id number] Memoria 14:00:00 14:00:00 Pre-Reg r Neurology 01 john [place] 2017-12-23 2017-12-23 Outpatient MHIE MHIE [id number] Memoria 09:00:00 09:00:00 01 john [place] 2017-12-23 2017-12-[address] [facility] [facility] [id number] 09:00:00 09:00:00 Tariq 01 [place] 2017-11-05 2017-11-05 Outpatient MHIE MHIE [id number] Memoria 10:30:00 10:30:00 02 john [place] 2017-11-05 2017-11-05 Outpatient MHIE MHIE [id number] Memoria 10:30:00 10:30:00 03 john [place] 2017-11-05 2017-11-05 Outpatient MHIE MHIE [id number] Memoria 10:30:00 10:30:00 03 john [place] 2017-11-05 2017-11-05 Outpatient IE IE [id number] Memoria 10:30:00 10:30:00 02 john [place] 2017-06-24 2017-06-24 Outpatient IE [facility] [id number] Memoria 11:30:00 11:30:00 00 john [place] 2017-06-24 2017-06-24 Outpatient [facility] [id number] Memoria 11:30:00 11:30:00 00 john [place] Results This patient has no known results.
--- NOTE | 2022-01-19 17:50 | ER ---
Nurse's Notes [facility] Name: Ranulfo Chao Age: 86 yrs Sex: Male : 1935 Arrival Date: 01/19/2022 Time: 15:18 Bed 26 Private MD: Diagnosis: Mccarthy catheter problem;Tinea cruris Presentation: 01/19 15:52 Chief complaint: Spouse and/or significant other states: Mccarthy catheter placed on jl7 Friday last week, spouse reports urology cannot see him until next week and he cannot take the pain anymore. Reports catheter appears to be draining but the pain at the meatus is too much. Coronavirus screen: Vaccine status: Patient reports being unvaccinated. At this time, the client does not indicate any symptoms associated with coronavirus-19. Ebola Screen: No symptoms or risks identified at this time. Initial Sepsis Screen: Does the patient meet any 2 criteria? No. Patient's initial sepsis screen is negative. Does the patient have a suspected source of infection? No. Patient's initial sepsis screen is negative. Risk Assessment: Do you want to hurt yourself or someone else? Patient reports no desire to harm self or others. Onset of symptoms is unknown. 15:52 Method Of Arrival: Wheelchair [facility] 15:52 Acuity: SABINE 3 jl7 Triage Assessment: 15:55 General: Appears in no apparent distress. uncomfortable, Behavior is calm, cooperative, jl7 appropriate for age. Pain: Complains of pain in pelvis Pain currently is 5 out of 10 on a pain scale. 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 - Social history:: Smoking status: Patient denies any tobacco usage or history of. Screenin:15 Abuse screen: Denies threats or abuse. Denies injuries from another. Nutritional tp1 screening: No deficits noted. Tuberculosis screening: No symptoms or risk factors identified. Fall Risk No fall in past 12 months (0 pts). Secondary diagnosis (15 points) impaired mobility, No IV (0 pts). Ambulatory Aid- None/Bed Rest/Nurse Assist (0 pts). Gait- Impaired (20 pts.). Mental Status- Oriented to own ability (0 pts). Total Franz Fall Scale indicates High Risk Score (45 or more points). Fall prevention measures have been instituted. Side Rails Up X 2 Placed Close to Nursing Station Frequent Obs/Assessments Occuring Family Present and informed to notify staff if the need to leave the bedside As available patient and family educated on Fall Prevention Program and Strategies. Assessment: 16:15 General: Appears in no apparent distress. uncomfortable, Behavior is calm, cooperative. tp1 Pain: Complains of pain in pelvis Pain does not radiate. Pain currently is 10 out of 10 on a pain scale. Neuro: Level of Consciousness is awake, alert, obeys commands, Oriented to person, place. Cardiovascular: Patient's skin is warm and dry. Respiratory: Airway is patent Respiratory effort is even, unlabored. GI: No signs and/or symptoms were reported involving the gastrointestinal system. : Mccarthy in place to gravity drainage Urine is clear, bilateral sides of groin appear to be red. Reports pain head of penis. EENT: No signs and/or symptoms were reported regarding the EENT system. Derm: Skin is pink, warm \T\ dry. Derm: Rash noted that is red, on right femoral area and left femoral area. Musculoskeletal: Circulation, motion, and sensation intact. 16:24 Reassessment: Received VO from Dr. Jean-Baptiste to DC Mccarthy catheter. tp1 16:28 Reassessment: Mccarthy Catheter removed. PT tolerated well. tp1 16:28 : skin appears to have a white spot on urethra. Head of penis/urethra appears red tp1 with crusted discharge. Head of penis is tender. 17:30 Reassessment: Patient appears in no apparent distress at this time. No changes from tp1 previously documented assessment. Patient and/or family updated on plan of care and expected duration. Pain level reassessed. Patient is alert, oriented x 3, equal unlabored respirations, skin warm/dry/pink. Patient denies pain at this time. Vital Signs: 15:52 BP 123 / 84; Pulse 116; Resp 17; Temp 98.3; Pulse Ox 94% ; Weight 71.67 kg; Height 5 jl7 ft. 8 in. (172.72 cm); Pain 5/10; 16:30 BP 117 / 83; Pulse 114; Resp 16; Pulse Ox 95% on R/A; tp1 17:30 BP 126 / 81; Pulse 112; Resp 16; Pulse Ox 91% on R/A; tp1 15:52 Body Mass Index 24.02 (71.67 kg, 172.72 cm) jl7 ED Course: 15:18 Patient arrived in ED. am2 15:30 Helen Jean-Baptiste MD is Attending Physician. sd2 15:55 Triage completed. jl7 15:55 Arm band placed on right wrist. jl7 16:03 Nichole Hester, DAVIAN is Primary Nurse. tp1 16:15 Patient has correct armband on for positive identification. Bed in low position. Call tp1 light in reach. Side rails up X2. Adult w/ patient. 16:15 Pulse ox on. NIBP on. tp1 16:15 No provider procedures requiring assistance completed. tp1 17:47 Bandar Curtis MD is Referral Physician. sd2 18:30 Patient did not have IV access during this emergency room visit. tp1 Administered Medications: No medications were administered Medication: 16:15 VIS not applicable for this client. tp1 Outcome: 17:49 Discharge ordered by . sd2 18:30 Discharged to home via wheelchair, with family. tp1 18:30 Condition: good 18:30 Discharge instructions given to patient, family, Instructed on discharge instructions, follow up and referral plans. medication usage, Demonstrated understanding of instructions, follow-up care, medications, Prescriptions given X 1. 18:30 Patient left the ED. tp1 Signatures: Tyson Vance RN RN jl7 Shantell Aparicio am2 Nichole Hester RN RN tp1 Helen Jean-Baptiste MD MD sd2 Corrections: (The following items were deleted from the chart) 16:00 15:55 Home Meds: clopidogrel oral; jl7 jl7 16:00 15:55 Home Meds: atorvastatin oral; jl7 jl7 16:00 15:55 Home Meds: losartan oral; jl7 jl7 16:39 16:28 Reassessment: Mccarthy Catheter removed. PT tolerated well tp1 tp1
--- NOTE | 2022-01-19 17:50 | EDPHYS ---
Physician Documentation [facility] Name: Ranulfo Chao Age: 86 yrs Sex: Male : 1935 Arrival Date: 01/19/2022 Time: 15:18 Bed 26 Private MD: ED Physician Helen Jean-Baptiste HPI: 01/19 16:20 This 86 yrs old Male presents to ER via Wheelchair with complaints of Problem With sd2 Urinary Catheter. 16:20 86-year-old male presents with chief complaint of pain at Mccarthy catheter site. He sd2 reports it was placed last week due to him not being able to fully empty his bladder due to an enlarged prostate. He was supposed to follow-up with urology this past week but was unable to be seen and is scheduled to be seen this upcoming in clinic. The patient reports significant pain at the tip of his urethra as well as either sides of his inguinal area. No known fevers or abdominal pain. The catheter has still been draining properly.. 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 - Social history:: Smoking status: Patient denies any tobacco usage or history of. ROS: 16:20 Constitutional: Negative for fever, chills, and weight loss, Eyes: Negative for injury, sd2 pain, redness, and discharge, Cardiovascular: Negative for chest pain, palpitations, and edema, Respiratory: Negative for shortness of breath, cough, wheezing. Abdomen/GI: Negative for abdominal pain, nausea, vomiting, diarrhea. : Negative for dysuria, frequency or hematuria. positive for pain at urethral meatus. MS/Extremity: Negative for injury and deformity, Skin: Negative for injury and discoloration, positive for rash Exam: 16:20 Constitutional: This is a well developed, well nourished patient who is awake, alert, sd2 and in no acute distress. Head/Face: Normocephalic, atraumatic. Eyes: EOMI, normal conjunctiva bilaterally Chest/axilla: Normal chest wall appearance and motion. Nontender with no deformity. Cardiovascular: Regular rate and rhythm with a normal S1 and S2. No gallops, murmurs, or rubs. 2+ distal pulses. Respiratory: Lungs have equal breath sounds bilaterally, clear to auscultation and percussion. No rales, rhonchi or wheezes noted. No increased work of breathing, no retractions or nasal flaring. Abdomen/GI: Soft, non-tender, with normal bowel sounds. No guarding or rebound. No evidence of tenderness throughout. Male : Mccarthy catheter in place with small amount of skin irritation noted at the urethral meatus. Candidal rash with satellite lesions noted to bilateral inguinal creases. Skin: Warm, dry with normal turgor. MS/ Extremity: Pulses equal, no cyanosis. Neurovascular intact. Psych: Awake, alert, with orientation to person, place and time. Behavior, mood, and affect are within normal limits. Vital Signs: 15:52 BP 123 / 84; Pulse 116; Resp 17; Temp 98.3; Pulse Ox 94% ; Weight 71.67 kg; Height 5 jl7 ft. 8 in. (172.72 cm); Pain 5/10; 16:30 BP 117 / 83; Pulse 114; Resp 16; Pulse Ox 95% on R/A; tp1 17:30 BP 126 / 81; Pulse 112; Resp 16; Pulse Ox 91% on R/A; tp1 15:52 Body Mass Index 24.02 (71.67 kg, 172.72 cm) jl7 MDM: 16:04 Patient medically screened. sd2 16:20 Differential Diagnosis yeast infection, contact dermatitis, catheter displacement, sd2 catheter malfunction among others. Data reviewed: vital signs, nurses notes. ED course: Discussed with patient and who are adamant to have catheter removed that we can trial removing the catheter but if patient is unable to void, then it may have to be replaced. They verbalize understanding and are in agreement with trial removal of catheter.. 17:46 Counseling: I had a detailed discussion with the patient and/or guardian regarding: the sd2 historical points, exam findings, and any diagnostic results supporting the discharge/admit diagnosis, the need for outpatient follow up, to return to the emergency department if symptoms worsen or persist or if there are any questions or concerns that arise at home. Medical screen evaluation completed. EMTALA emergency medical condition absent. ED course: Patient's Mccarthy catheter has been removed. His pain is improved and he is resting comfortably in the ER. He has yet to void on his own. However, after discussing the risks and benefits and that they may have to return to the ER, they have chosen to go home and see if he can void at home. They will plan to return if he has any issues. He will be discharged home with an ointment to help with his yeast infection and they are comfortable with plan for discharge and outpatient follow-up. He will follow-up with his urologist this coming week.. Administered Medications: No medications were administered Disposition Summary: 01/19/22 17:49 Discharge Ordered Location: Home sd2 Problem: new sd2 Symptoms: have improved sd2 Condition: Stable sd2 Diagnosis - Mccarthy catheter problem sd2 - Tinea cruris sd2 Followup: sd2 - With: Bandar Curtis MD - When: 2 - 3 days - Reason: Recheck today's complaints, Continuance of care, Re-evaluation by your physician Discharge Instructions: - Discharge Summary Sheet sd2 - Genital Yeast Infection, Male sd2 - Indwelling Urinary Catheter Insertion, Care After sd2 Forms: - Medication Reconciliation Form sd2 - Thank You Letter sd2 - Antibiotic Education sd2 - Prescription Opioid Use sd2 Prescriptions: - Clotrimazole 1 % Topical Cream - Apply to affected area 1 application by TOPICAL route every 12 hours for 7 sd2 days; 15 gram; Refills: 0, Product Selection Permitted Signatures: Dispatcher [employer] Tyson Altamirano RN RN jl7 Helen Jean-Baptiste MD MD sd2 Corrections: (The following items were deleted from the chart) 16:00 15:55 Home Meds: clopidogrel oral; jl7 jl7 16:00 15:55 Home Meds: atorvastatin oral; jl7 jl7 16:00 15:55 Home Meds: losartan oral; jl7 jl7 17:55 16:19 Urine Dipstick-Ancillary ordered. sd2 tp1
[2022-01-19 19:09] VITALS: TEMP 98.3
[2022-01-19 19:12] VITALS: BP 126/81; O2SAT 91
== END 2022-01-19 18:30 | disposition home or self-care (01) ==
LOC: ER 15:16
DX: T83.84XA Pain due to genitourinary prosthetic devices, implants and grafts, initial encounter (principal); B35.6 Tinea cruris; E78.00 Pure hypercholesterolemia, unspecified; I10 Essential (primary) hypertension; Z88.1 Allergy status to other antibiotic agents; Z88.5 Allergy status to narcotic agent; Z88.7 Allergy status to serum and vaccine
CPT/HCPCS: 99283

== ENCOUNTER 2022-07-13 11:13 | Inpatient (IN) | payer OTHER ==
[2022-07-13 11:43] LABS: Absolute Lymphocytes (CBC) 2.4 K/uL (0.7-4.9); Hematocrit 35.3 % (39.6-49.0); Lymphocytes % 24.8 % (15.3-44.8); MCV 83.2 fL (80-100); MPV 7.6 fL (7.6-11.3); RBC Red Blood Cell Count 4.24 M/uL (4.33-5.43)
--- OUTSIDE RECORDS SUMMARY | 2022-07-13 11:52 | XMS REPORT | Continuity of Care Document ---
:1935 Author Organization Formerly [facility] t Address [address] [place] [address] [address] [place] [address] Care Team Providers Name Role Phone Edwardo Yu MD Primary Care Physician Maria Guadalupe Toussaint Attending Clinician Unavailable Tariq Boucher Attending Clinician ALLEGRA RODRIGUEZ Attending Clinician Unavailable Nurse, [facility] Attending Clinician Unavailable Allegra Church Attending Clinician MARIA GUADALUPE TOUSSAINT Attending Clinician Unavailable Alma Dunn Attending Clinician SHANTELL WHEELER Attending Clinician Unavailable Provider, [facility] Attending Clinician Unavailable Shantell Wheeler MD Attending Clinician Doctor Unassigned, Alafaya Attending Clinician Unavailable Sarah Berg MD Attending Clinician ASRAH BERG Attending Clinician Unavailable Fabi Lara Attending Clinician FABI BOB Attending Clinician Unavailable Maria Guadalupe Toussaint MD Attending Clinician Lab, Adc Fam Pob I Attending Clinician Unavailable Debi Costa Attending Clinician DEBI DUFF Attending Clinician Unavailable Ata Obando DO Attending Clinician ATA OBANDO Attending Clinician Unavailable ATA OBANDO Admitting Clinician Unavailable Payers Payer Name Policy Type Policy Effective Date Expiration Date Sour ce Number AETNA 53 [id number] [facility] MEDICARE PART A [id number] 2000 \T\ B 00:00:00 CONTINENTAL [id number] 2020 BENEFITS 00:00:00 Problems Condition Condition Condition Status Onset Resolution Last Treating Co mments Source Name Details Category Date Date Treatment Clinician Date Acute Acute Disease Active Methodi cholecysti cholecysti 1-17 [facility] tis tis 00:00: Hospita 00 l 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:00: Hospita stenosis stenosis 00 l 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 with s with 00:00: Hospita radiculopa radiculopa 00 l thy, thy, lumbar lumbar region region 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 05-05 14:42:03 l erosis in erosis in 00:00: Herm sly [place] 00 artery artery (disorder) (disorder) Active 05/05/2015 Problem 05/31/2022 [facility] Essential Essential Problem Active 2022-05-31 Memoria hypertensi hypertensi 05-05 14:42:03 l on on 00:00: [place] (disorder) (disorder) 00 Active 05/05/2015 Problem 05/31/2022 [facility] Hyperlipid Hyperlipi Problem Active 2022-05-31 Memoria emia demia 05-05 14:42:03 l (disorder) (disorder) 00:00: He rmann Active 00 05/05/2015 Problem 05/31/2022 [facility] Transient Transient Problem Active 2022-05-31 Memoria ischemic ischemic 05-05 14:42:03 l attack attack 00:00: [place]uc[place] (disorder) (disorder) 00 Active 05/05/2015 Problem 05/31/2022 [facility] Neuropathy Neuropath Problem Active 2022-05-31 Memoria (disorder) y - 14:42:03 l (disorder) 00:00: Kevin n Active 00 03/28/2015 Problem 05/31/2022 [facility] Lumbar Lumbar Problem Active 2014-032022-05-31 [facility] radiculopa radiculopa 0-13 14:42:03 l thy thy 00:00: Cuco (disorder) (disorder) 00 Active 2014 Problem 05/31/2022 [facility] Prediabete Prediabete Disease Active U inés s s 2-07 ity of 00:00: [address] Branch Urinary Complicate Problem Comm on tract d UTI [facility] infectious (urinary - [facility] I disease tract St infection) [facility] Epididymit Epididymit Problem C ommon is is [facility] [id number] BPH loc w Problem Com mon urin [facility] obs/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 [id number] Acute pain Problem Co mmon in scrotum [facility] [id number] Status Problem Common post fall [facility] Cervical Cervical Problem Active 2022-05-31 Memoria radiculopa radiculopa 14:42:03 l thy thy [place] (disorder) (disorder) Active Problem 05/31/2022 [facility] Confusiona Problem Active 2022-05-31 M emoria l state Confusiona 14:42:03 l (disorder) l state Elaine nn (disorder) Active Problem 05/31/2022 [facility] Diplopia Diplopia Problem Active 2022-05-31 Memoria (disorder) (disorder) 14:42:03 l Active Cuco Problem 05/31/2022 [facility] Fracture Fracture Problem Active 2022-05-31 Memoria of rib of rib 14:42:03 l (disorder) (disorder) Ck ann Active Problem 05/31/2022 [facility] Knee pain Knee pain Problem Active 2022-05-31 Memoria (finding) (finding) 14:42:03 l Active [place] Problem 05/31/2022 [facility] Muscle Muscle Problem Active 2022-05-31 [facility] pain pain 14:42:03 l (finding) (finding) Herm sly Active Problem 05/31/2022 [facility] Polymyalgi Problem Active 2022-05-31 M emoria a Polymyalgi 14:42:03 l rheumatica a Kevin n (disorder) rheumatica (disorder) Active Problem 05/31/2022 [facility] Recurrent Recurrent Problem Active 2022-05-31 Memoria falls falls 14:42:03 l (finding) (finding) Herm sly Active Problem 05/31/2022 [facility] Rib pain Rib pain Problem Active 2022-05-31 Memoria (finding) (finding) 14:42:03 l Active [place] Problem 05/31/2022 [facility] Visual Visual Problem Active 2022-05-31 [facility] impairment impairment 14:42:03 l (disorder) (disorder) Ck ann Active Problem 05/31/2022 [facility] Amnesia Amnesia Problem Active 2022-05-31 Me moria (finding) (finding) 14:42:03 l Active Cuco Problem 05/31/2022 [facility] Myoclonus Problem Resolve 2016-0 2021-10-26 2021-10-26 Memoria (finding) Myoclonus d 7-21 04:51:42 04:51:42 l (finding) 00:00: Cuco Resolved 00 09/28/2015 Problem 10/26/2021 [facility] Allergies, Adverse Reactions, Alerts Allergy Allergy Status Severity Reaction(s) Onset Inactive Treating Comm ents Source Name Type Date Date Clinician 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 -[address] Vaccines adverse 00:00: Syndrome Hospi ta [...] ity of 00:00: [place] 00 [facility] [id number] Drug Active Unknown Common allergy [facility] codeine codeine Active Unknown [facility] Family History Family Member Diagnosis Comments Start Date Stop Date Source Natural brother Emphysema [facility] Natural brother Heart disease Method [facility] Natural father Cerebral aneurysm Met [facility] Natural mother Emphysema [facility] Social History Social Habit Start Date Stop Date Quantity Comments Source History SDOH [facility] o f Alcohol Frequency [facility] edical Branch History SDOH University o f Alcohol Std Drinks [place] [facility] History SDOH University o f Alcohol Binge [place] [facility] Gender identity [facility] Sexual orientation Method [facility] History of Tobacco [facility] Use [facility] Exposure to 2021-10-14 2021-10-24 Not sure University of SARS-CoV-2 (event) 00:00:00 19:11:00 [facility] Tobacco use and 2021-10-24 2021-10-24 Smokeless tobacco Un iversity of exposure 00:00:00 00:00:00 non-user [facility] History of Social 2018-10-28 2018-10-[address] function 00:00:00 00:00:00 Hospital Cigarettes smoked 2018-03-26 2018-03-[address] current (pack per 00:00:00 00:00:00 Hospita l day) - Reported Cigarette 2018-03-26 2018-03-26 [facility] 00:[facility]:00 00:00:00 Hospital Alcohol intake 2018-03-26 2018-03-26 Current drinker of Me [facility]ist 00:00:00 00:00:00 alcohol (finding) Hospita l Alcohol Comment 2018-02-27 2018-02-[address] 00:00:00 00:00:00 Hospital Sex Assigned At [birth year] [facility] 00:[facility] Hospital Smoking Status Start Date Stop Date Source Tobacco smoking status 2022-05-28 18:51:30 2022-05-28 18:51:30 [facility] [place] Medications Ordered Filled Start Stop Current Ordering Indication Dosage Frequency Signature Comments Components Source Medication Medication Date Date Medication? 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, Height, 75.085, kg, 01/23/22 11:34:00 AUTOMATION MECHANIC, Weight DULoxetine 2021-03 Yes See Memoria 30 mg oral 1-28 Instructio l delayed 20:13: ns, TAKE Kevin n release 00 ONE capsule CAPSULE BY MOUTH DAILY, # 30 unknown unit, 5 Refill(s), Pharmacy: [facility] [id number], 162.56, cm, 01/23/22 11:34:00 AUTOMATION MECHANIC, Height, 75.085, kg, 01/23/22 11:34:00 AUTOMATION MECHANIC, Weight finasteride 2021-03 Yes 0 Memori a 5 mg oral 1-16 Refill(s) l tablet 17:35: [place] 00 rosuvastati 2021-03 Yes 20 mg = 1 M emoria n 20 mg 1-16 tab, PO, l oral tablet 17:35: Bedtime, # Cuco 00 30 tab, 0 Refill(s) DULoxetine Yes See Memoria 30 mg oral 8-08 Instructio l delayed 17:12: ns, TAKE Kevin n release 00 ONE capsule CAPSULE BY MOUTH DAILY, # 30 unknown unit, 2 Refill(s), Pharmacy: [facility] [id number], 162.56, cm, 04/18/21 14:08:00 AUTOMATION MECHANIC, Height, 75, kg, 04/18/21 14:08:00 AUTOMATION MECHANIC, Weight gabapentin Yes See Memoria 600 mg oral 7-19 Instructio l tablet 15:32: ns, TAKE [place] 00 ONE TABLET BY MOUTH THREE TIMES A DAY, # 270 tab, 1 Refill(s), Pharmacy: [facility] [id number], 162.56, cm, 04/18/21 14:08:00 AUTOMATION MECHANIC, Height, 75, kg, 04/18/21 14:08:00 AUTOMATION MECHANIC, Weight gabapentin 0 Yes See Memoria 600 mg oral 7-19 Instructio l tablet 15:32: ns, TAKE [place]uc[place] 00 ONE TABLET BY MOUTH THREE TIMES A DAY, # 270 tab, 1 Refill(s), Pharmacy: [facility] [id number], 162.56, cm, 04/18/21 14:08:00 AUTOMATION MECHANIC, Height, 75, kg, 04/18/21 14:08:00 AUTOMATION MECHANIC, Weight gabapentin 0 Yes See Memoria 600 mg oral 7-19 Instructio l tablet 15:32: ns, TAKE Cuco 00 ONE TABLET BY MOUTH THREE TIMES A DAY, # 270 tab, 1 Refill(s), Pharmacy: [facility] [id number], 162.56, cm, 04/18/21 14:08:00 AUTOMATION MECHANIC, Height, 75, kg, 04/18/21 14:08:00 AUTOMATION MECHANIC, Weight WheelChair 2022-0 Yes 1 ea, Memori a 7-13 MISC, l 14:33: ONCALL, # [place] 00 1 ea, 0 Refill(s), 162.56, cm, 04/18/21 14:08:00 AUTOMATION MECHANIC, Height, 75, kg, 04/18/21 14:08:00 AUTOMATION MECHANIC, Weight WheelChair 0 Yes 1 ea, Memori a 7-13 MISC, l 14:33: ONCALL, # [place] 00 1 ea, 0 Refill(s), 162.56, cm, 04/18/21 14:08:00 AUTOMATION MECHANIC, Height, 75, kg, 04/18/21 14:08:00 AUTOMATION MECHANIC, Weight WheelChair Yes 1 ea, Memori a 7-13 MISC, l 14:33: ONCALL, # Cuco 00 1 ea, 0 Refill(s), 162.56, cm, 04/18/21 14:08:00 AUTOMATION MECHANIC, Height, 75, kg, 04/18/21 14:08:00 AUTOMATION MECHANIC, Weight baclofen No 10 mg = 1 M emoria mg oral 7-13 tab, PO, l tablet 14:27: BID, # 60 Kevin n 00 tab, 2 Refill(s), Pharmacy: [facility] [id number], 162.56, cm, 04/18/21 14:08:00 AUTOMATION MECHANIC, Height, 75, kg, 04/18/21 14:08:00 AUTOMATION MECHANIC, Weight baclofen 0 No 10 mg = 1 M emoria mg oral 7-13 tab, PO, l tablet 14:27: BID, # 60 Kevin n 00 tab, 2 Refill(s), Pharmacy: [facility] [id number], 162.56, cm, 04/18/21 14:08:00 AUTOMATION MECHANIC, Height, 75, kg, 04/18/21 14:08:00 AUTOMATION MECHANIC, Weight baclofen 10 0 No 10 mg = 1 M emoria mg oral 7-13 tab, PO, l tablet 14:27: BID, # 60 Kevin n 00 tab, 2 Refill(s), Pharmacy: [facility] [id number], 162.56, cm, 04/18/21 14:08:00 AUTOMATION MECHANIC, Height, 75, kg, 04/18/21 14:08:00 AUTOMATION MECHANIC, Weight Finasteride Finasteride 2022- No 1{table QD Finasterid 5 MG 5 MG 07-26 t} e 5 MG 00:00: 00:00 00 :00 Tamsulosin Tamsulosin 2022- No 1{capsu QD Tamsulosin HCl 0.4 MG HCl 0.4 MG 07-26 le} HCl 0.4 MG 00:00: 00:00 00 :00 gabapentin 2021-0 Yes 900mg Take 900 Un sabiha 300 mg 3-16 mg by ity of capsule 10:49: mouth 3 [place] 44 (three) Medical times Branch daily. gabapentin 2021- Yes 900mg Take 900 Un sabiha 300 mg 3-16 mg by ity of capsule 10:49: mouth 3 [place] 44 (three) Medical times Branch daily. predniSONE Yes 5 mg = 1 Mem oria 5 mg oral 2-09 tab, PO, l tablet 20:54: Daily, # [place] 00 30 tab, 3 Refill(s), Pharmacy: [facility] [id number], 162.56, cm, 04/18/21 14:08:00 AUTOMATION MECHANIC, Height, 75, kg, 04/18/21 14:08:00 AUTOMATION MECHANIC, Weight predniSONE Yes 5 mg = 1 Mem oria 5 mg oral 2-09 tab, PO, l tablet 20:54: Daily, # Cuco 00 30 tab, 3 Refill(s), Pharmacy: [facility] [id number], 162.56, cm, 04/18/21 14:08:00 AUTOMATION MECHANIC, Height, 75, kg, 04/18/21 14:08:00 AUTOMATION MECHANIC, Weight predniSONE Yes 5 mg = 1 Mem oria 5 mg oral 2-09 tab, PO, l tablet 20:54: Daily, # Cuco 00 30 tab, 3 Refill(s), Pharmacy: [facility] [id number], 162.56, cm, 04/18/21 14:08:00 AUTOMATION MECHANIC, Height, 75, kg, 04/18/21 14:08:00 AUTOMATION MECHANIC, Weight DULoxetine Yes See Memoria 30 mg oral 9-05 Instructio l delayed 20:18: ns, TAKE Kevin n release 00 ONE capsule CAPSULE BY MOUTH DAILY, # 30 unknown unit, 5 Refill(s), Pharmacy: [facility] [id number], 162.56, cm, 04/06/20 9:15:00 AUTOMATION MECHANIC, Height, 74.091, kg, 04/06/20 9:15:00 AUTOMATION MECHANIC, Weight DULoxetine 2020-0 Yes See Memoria 30 mg oral 9-05 Instructio l delayed 20:18: ns, TAKE Kevin n release 00 ONE capsule CAPSULE BY MOUTH DAILY, # 30 unknown unit, 5 Refill(s), Pharmacy: [facility] [id number], 162.56, cm, 04/06/20 9:15:00 AUTOMATION MECHANIC, Height, 74.091, kg, 04/06/20 9:15:00 AUTOMATION MECHANIC, Weight DULoxetine 2020-0 Yes See Memoria 30 mg oral 9-05 Instructio l delayed 20:18: ns, TAKE Kevin n release 00 ONE capsule CAPSULE BY MOUTH DAILY, # 30 unknown unit, 5 Refill(s), Pharmacy: [facility] [id number], 162.56, cm, 04/06/20 9:15:00 AUTOMATION MECHANIC, Height, 74.091, kg, 04/06/20 9:15:00 AUTOMATION MECHANIC, Weight DULoxetine 2020-0 Yes See Memoria 30 mg oral 9-05 Instructio l delayed 20:18: ns, TAKE Kevin n release 00 ONE capsule CAPSULE BY MOUTH DAILY, # 30 unknown unit, 5 Refill(s), Pharmacy: [facility] [id number], 162.56, cm, 04/06/20 9:15:00 AUTOMATION MECHANIC, Height, 74.091, kg, 04/06/20 9:15:00 AUTOMATION MECHANIC, Weight DULoxetine 2020-0 Yes See Memoria 30 mg oral 3-04 Instructio l delayed 19:26: ns, TAKE Kevin n release 00 ONE capsule CAPSULE BY MOUTH DAILY, # 30 unknown unit, 5 Refill(s), Pharmacy: [facility] [id number], 162.56, cm, 04/06/20 9:15:00 AUTOMATION MECHANIC, Height, 74.091, kg, 04/06/20 9:15:00 AUTOMATION MECHANIC, Weight DULoxetine 2020-0 Yes See Memoria 30 mg oral 3-04 Instructio l delayed 19:26: ns, TAKE Kevin n release 00 ONE capsule CAPSULE BY MOUTH DAILY, # 30 unknown unit, 5 Refill(s), Pharmacy: [facility] [id number], 162.56, cm, 04/06/20 9:15:00 AUTOMATION MECHANIC, Height, 74.091, kg, 04/06/20 9:15:00 AUTOMATION MECHANIC, Weight DULoxetine 2021-0 Yes See Memoria 30 mg oral 3-04 Instructio l delayed 19:26: ns, TAKE Kevin n release 00 ONE capsule CAPSULE BY MOUTH DAILY, # 30 unknown unit, 5 Refill(s), Pharmacy: [facility] [id number], 162.56, cm, 04/06/20 9:15:00 AUTOMATION MECHANIC, Height, 74.091, kg, 04/06/20 9:15:00 AUTOMATION MECHANIC, Weight DULoxetine 202-0 Yes See Memoria 30 mg oral 3-04 Instructio l delayed 19:26: ns, TAKE Kevin n release 00 ONE capsule CAPSULE BY MOUTH DAILY, # 30 unknown unit, 5 Refill(s), Pharmacy: [facility] [id number], 162.56, cm, 04/06/20 9:15:00 AUTOMATION MECHANIC, Height, 74.091, kg, 04/06/20 9:15:00 AUTOMATION MECHANIC, Weight gabapentin 202-0 Yes See Memoria 600 MG Oral 1-28 Instructio l Tablet 15:42: ns, 12 [place]uc[place] [Neurontin] 00 tab PO TID 90 day, # 180 tab, 1 Refill(s), Pharmacy: [place] [id number], 162.56, cm, 04/06/20 9:15:00 AUTOMATION MECHANIC, Height, 74.091, kg, 04/06/20 9:15:00 AUTOMATION MECHANIC, Weight gabapentin 2021-0 Yes See Memoria 600 MG Oral 1-28 Instructio l Tablet 15:42: ns, 1/2 [place] [Neurontin] 00 tab PO TID 90 day, # 180 tab, 1 Refill(s), Pharmacy: [id number], 162.56, cm, 04/06/20 9:15:00 AUTOMATION MECHANIC, Height, 74.091, kg, 04/06/20 9:15:00 AUTOMATION MECHANIC, Weight gabapentin 2021-0 Yes See Memoria 600 MG Oral 1-28 Instructio l Tablet 15:42: ns, 03/11 [place] [Neurontin] 00 tab PO TID 90 day, # 180 tab, 1 Refill(s), Pharmacy: [facility], 162.56, cm, 04/06/20 9:15:00 AUTOMATION MECHANIC, Height, 74.091, kg, 04/06/20 9:15:00 AUTOMATION MECHANIC, Weight gabapentin 2020-0 Yes See Memoria 600 MG Oral 04-06 Instructio l Tablet 15:42: ns, 03/11 [place]uco [Neurontin] 00 tab PO TID 90 day, # 180 tab, 1 Refill(s), Pharmacy: [facility] [place], 162.56, cm, 04/06/20 9:15:00 AUTOMATION MECHANIC, Height, 74.091, kg, 04/06/20 9:15:00 AUTOMATION MECHANIC, Weight gabapentin 2019-03 Yes 600 mg = 1 M emoria 600 MG Oral -21 tab, PO, l Tablet 01:47: TID, # 270 Elaine nn [Neurontin] 00 tab, 1 Refill(s), Pharmacy: [facility] [place], 162.56, cm, 01/27/20 11:01:00 AUTOMATION MECHANIC, Height, 72.727, kg, 01/27/20 11:01:00 AUTOMATION MECHANIC, Weight gabapentin 2019-03 Yes 600 mg = 1 M emoria 600 MG Oral -21 tab, PO, l Tablet 01:47: TID, # 270 Elaine nn [Neurontin] 00 tab, 1 Refill(s), Pharmacy: [facility] [place], 162.56, cm, 01/27/20 11:01:00 AUTOMATION MECHANIC, Height, 72.727, kg, 01/27/20 11:01:00 AUTOMATION MECHANIC, Weight gabapentin 2019-03 Yes 600 mg = 1 M emoria 600 MG Oral 1-21 tab, PO, l Tablet 01:47: TID, # 270 Elaine nn [Neurontin] 00 tab, 1 Refill(s), Pharmacy: [facility] [place], 162.56, cm, 01/27/20 11:01:00 AUTOMATION MECHANIC, Height, 72.727, kg, 01/27/20 11:01:00 AUTOMATION MECHANIC, Weight gabapentin 2019-03 Yes 600 mg = 1 M emoria 600 MG Oral 1-21 tab, PO, l Tablet 01:47: TID, # 270 Elaine nn [Neurontin] 00 tab, 1 Refill(s), Pharmacy: [facility] 256, 162.56, cm, 01/27/20 11:01:00 AUTOMATION MECHANIC, Height, 72.727, kg, 01/27/20 11:01:00 AUTOMATION MECHANIC, Weight apixaban 2019-03 Yes 2.5mg Take 2.5 Univ ers (ELIQUIS) 0-12 mg by ity of 2.5 mg 14:20: mouth 2 [place] tablet 35 (two) Medical times Branch daily. losartan 25 2019-03 Yes 25mg Take 25 mg Univers mg tablet 0-12 by mouth ity of 14:20: daily. [address] Branch rosuvastati 2019-03 Yes 20mg Take 20 mg Univers n 20 mg 0-12 by mouth ity of tablet 14:20: at [place] [address] bedtime. Medical Branch gabapentin 2019-03 Yes 900mg Take 900 Un sabiha 300 mg 0-12 mg by ity of capsule 14:20: mouth 3 [place] [address] (three) Medical times Branch daily. apixaban 2019-03 Yes 2.5mg Take 2.5 Univ ers (ELIQUIS) 0-12 mg by ity of 2.5 mg 14:20: mouth 2 [place] tablet 35 (two) Medical times Branch daily. losartan 25 2019-03 Yes 25mg Take 25 mg Univers mg tablet 0-12 by mouth ity of 14:20: daily. [address] rosuvastati 2019-03 Yes 20mg Take 20 mg Univers n 20 mg 0-12 by mouth ity of tablet 14:20: at [place] [address] bedtime. Medical Branch gabapentin 2019-03 Yes 900mg Take 900 Un sabiha 300 mg 0-12 mg by ity of capsule 14:20: mouth 3 [place] [address] (three) Medical times Branch daily. apixaban 2019-03 Yes 2.5mg Take 2.5 Univ ers (ELIQUIS) 0-12 mg by ity of 2.5 mg 14:20: mouth 2 [place] tablet 35 (two) Medical times Branch daily. losartan 25 2019-03 Yes 25mg Take 25 mg Univers mg tablet 0-12 by mouth ity of 14:20: daily. [address] Branch rosuvastati 2019-03 Yes 20mg Take 20 mg Univers n 20 mg 0-12 by mouth ity of tablet 14:20: at [place] [address] bedtime. Medical Branch gabapentin 2019-03 Yes 900mg Take 900 Un sabiha 300 mg 0-12 mg by ity of capsule 14:20: mouth 3 [place] 35 (three) Medical times Branch daily. apixaban 2019-03 Yes 2.5mg Take 2.5 Univ ers (ELIQUIS) 0-12 mg by ity of 2.5 mg 14:20: mouth 2 [place] tablet 35 (two) Medical times Branch daily. losartan 25 2019-03 Yes 25mg Take 25 mg Univers mg tablet 0-12 by mouth ity of 14:20: daily. [place] [address] Medical Branch rosuvastati 2019-03 Yes 20mg Take 20 mg Univers n 20 mg 0-12 by mouth ity of tablet 14:20: at [place] [address] bedtime. Medical Branch gabapentin 2019-03 Yes 900mg Take 900 Un sabiha 300 mg 0-12 mg by ity of capsule 14:20: mouth 3 [place] [address] (three) Medical times [place] daily. apixaban 2019-03 Yes 2.5mg Take 2.5 Univ ers (ELIQUIS) 0-12 mg by ity of 2.5 mg 14:20: mouth 2 [place] tablet 35 (two) Medical times Branch daily. losartan 25 2019-03 Yes 25mg Take 25 mg Univers mg tablet 0-12 by mouth ity of 14:20: daily. [place] [address] Medical Branch rosuvastati 2019-03 Yes 20mg Take 20 mg Univers n 20 mg 0-12 by mouth ity of tablet 14:20: at [place] [address] bedtime. Medical Branch apixaban 2019-03 Yes 2.5mg Take 2.5 Univ ers (ELIQUIS) 0-12 mg by ity of 2.5 mg 14:20: mouth 2 [place] tablet 35 (two) Medical times Branch daily. losartan 25 2019-03 Yes 25mg Take 25 mg Univers mg tablet 0-12 by mouth ity of 14:20: daily. [address] Branch rosuvastati 2019-03 Yes 20mg Take 20 mg Univers n 20 mg 0-12 by mouth ity of tablet 14:20: at [place] [address] bedtime. Medical Branch DULoxetine Yes See Memoria 30 mg oral 7-29 Instructio l delayed 22:57: ns, TAKE Kevin n release 00 ONE capsule CAPSULE BY MOUTH DAILY, # 30 unknown unit, 6 Refill(s), Pharmacy: [facility] [id number], 165.1, cm, 07/30/19 9:05:00 CDT, Height, 75.909, kg, 07/30/19 9:05:00 CDT, Weight DULoxetine 2020-0 Yes See Memoria 30 mg oral 7-29 Instructio l delayed 22:57: ns, TAKE Kevin n release 00 ONE capsule CAPSULE BY MOUTH DAILY, # 30 unknown unit, 6 Refill(s), Pharmacy: [facility] [id number], 165.1, cm, 07/30/19 9:05:00 CDT, Height, 75.909, kg, 07/30/19 9:05:00 CDT, Weight DULoxetine 2020-0 Yes See Memoria 30 mg oral 7-29 Instructio l delayed 22:57: ns, TAKE Kevin n release 00 ONE capsule CAPSULE BY MOUTH DAILY, # 30 unknown unit, 6 Refill(s), Pharmacy: [facility] [id number], 165.1, cm, 07/30/19 9:05:00 CDT, Height, 75.909, kg, 07/30/19 9:05:00 CDT, Weight DULoxetine 2020-0 Yes See Memoria 30 mg oral 7-29 Instructio l delayed 22:57: ns, TAKE Kevin n release 00 ONE capsule CAPSULE BY MOUTH DAILY, # 30 unknown unit, 6 Refill(s), Pharmacy: [facility] [id number], 165.1, cm, 07/30/19 9:05:00 CDT, Height, 75.909, kg, 07/30/19 9:05:00 CDT, Weight TAMSULOSIN 2020-0 Yes [id number] TAKE ONE Univers 0.4 mg 24 7-29 CAPSULE BY ity of hr capsule 00:00: MOUTH [place] [address] DAILY Medical Branch TAMSULOSIN 2020-0 Yes [id number] TAKE ONE Univers 0.4 mg 24 7-29 CAPSULE BY ity of hr capsule 00:00: MOUTH [place] DAILY Medical Branch TAMSULOSIN 2020-0 Yes [id number] TAKE ONE Univers 0.4 mg 24 7-29 CAPSULE BY ity of hr capsule 00:00: MOUTH [place] DAILY Medical Branch TAMSULOSIN 2020-0 Yes [id number] TAKE ONE Univers 0.4 mg 24 7-29 CAPSULE BY ity of hr capsule 00:00: MOUTH DAILY Medical Branch TAMSULOSIN 2019- Yes [id number] TAKE ONE Univers 0.4 mg 24 7-29 CAPSULE BY ity of hr capsule 00:00: MOUTH DAILY Medical Branch TAMSULOSIN Yes [id number] TAKE ONE Univers 0.4 mg 24 7-29 CAPSULE BY ity of hr capsule 00:00: DAILY Medical Branch gabapentin 2018-03 Yes See Memoria 600 MG Oral 1-22 Instructio l Tablet 20:41: ns, 1.5 [place] [Neurontin] 45 tab PO TID, # 540 tab, 2 Refill(s), Pharmacy: [place] [address] gabapentin 2018-03 Yes See Memoria 600 MG Oral 1-22 Instructio l Tablet 20:41: ns, 1.5 [place] [Neurontin] 45 tab PO TID, # 540 tab, 2 Refill(s), Pharmacy: [place] [address] gabapentin 2018-03 Yes See Memoria 600 MG Oral 1-22 Instructio l Tablet 20:41: ns, 1.5 [place] [Neurontin] 45 tab PO TID, # 540 tab, 2 Refill(s), Pharmacy: [place] [address] gabapentin 2018-03 Yes See Memoria 600 MG Oral 1-22 Instructio l Tablet 20:41: ns, 1.5 [place] [Neurontin] 45 tab PO TID, # 540 tab, 2 Refill(s), Pharmacy: [place] [address] DUTASTERIDE 2019 Yes [id number] TAKE ONE Univers 0.5 mg 7-10 CAPSULE BY ity of capsule 00:00: DAILY [facility] DUTASTERIDE Yes [id number] TAKE ONE Univers 0.5 mg 7-10 CAPSULE BY ity of capsule 00:00: [place] DAILY [facility] DUTASTERIDE Yes [id number] TAKE ONE Univers 0.5 mg 7-10 CAPSULE BY ity of capsule 00:00: DAILY [facility] DUTASTERIDE Yes [id number] TAKE ONE Univers 0.5 mg 7-10 CAPSULE BY ity of capsule 00:00: [place] DAILY [facility] DUTASTERIDE Yes [id number] TAKE ONE Univers 0.5 mg 7-10 CAPSULE BY ity of capsule 00:00: MOUTH DAILY [facility] DUTASTERIDE Yes [id number] TAKE ONE Univers 0.5 mg 7-10 CAPSULE BY ity of capsule 00:00: MOUTH DAILY [facility] gabapentin Yes See Memoria 600 MG Oral 6-28 Instructio l Tablet 13:51: ns, 1.5 [place] [Neurontin] 03 tab PO TID, # 540 tab, 2 Refill(s), Pharmacy: [place] [address] gabapentin Yes See Memoria 600 MG Oral 6-28 Instructio l Tablet 13:51: ns, 1.5 [place] [Neurontin] 03 tab PO TID, # 540 tab, 2 Refill(s), Pharmacy: [place] [address] gabapentin Yes See Memoria 600 MG Oral 6-28 Instructio l Tablet 13:51: ns, 1.5 [place] [Neurontin] 03 tab PO TID, # 540 tab, 2 Refill(s), Pharmacy: [place] [address] gabapentin Yes See Memoria 600 MG Oral 6-28 Instructio l Tablet 13:51: ns, 1.5 [place] [Neurontin] 03 tab PO TID, # 540 tab, 2 Refill(s), Pharmacy: [place] [address] losartan 25 Yes 25 mg = 1 M emoria mg oral 3-26 tab, PO, l tablet 13:45: Daily, # [place] 00 30 tab, 0 Refill(s) Eliquis 2.5 2018- Yes 2.5 mg, Mem oria mg oral 3-26 PO, Q12H, l tablet 13:45: 0 [place] 00 Refill(s) dutasteride Yes 0.5 mg = 1 Memoria 0.5 mg oral 3-26 cap, PO, l capsule 13:45: Daily, # Kevin n 00 30 cap, 0 Refill(s) aspirin Yes 81mg QD Take 81 mg [...] Yes QD Take by [facility] mateo, 04-[address] vitamin D3, 13:23: daily. Hosp [facility] (VITAMIN D3 24 l ORAL) aspirin 0 Yes 81mg QD Take 81 mg Meth hanane (ECOTRIN) 1-[address] 81 MG 13:23: daily. Hospita enteric 24 l coated tablet tamsulosin 0 Yes .4mg QD Take 0.4 [facility] (FLOMAX) 1-[address] 0.4 mg 13:23: mouth Hospita capsule,ext 24 daily. l ended release 24hr CYANOCOBALA 0 Yes Take by [facility] MIN, [address] VITAMIN 13:23: Hospita B-12, 24 l (VITAMIN B-12 ORAL) dutasteride 2018-0 Yes .5mg QD Take 0.5 Me thodi (AVODART) 1-[address] 0.5 mg 13:23: mouth Hospita capsule 24 daily. l cholecalcif 2018-0 Yes QD Take by Met [facility] mtaeo, [address] vitamin D3, 13:23: daily. Hosp sami (VITAMIN D3 24 l ORAL) aspirin [id number] Yes 81mg QD Take 81 mg Meth hanane (ECOTRIN) 1-[address] 81 MG 13:23: daily. Hospita enteric 24 l coated tablet tamsulosin 2019-0 Yes .4mg QD Take 0.4 Met [facility] (FLOMAX) 1-[address] 0.4 mg 13:23: mouth Hospita capsule,ext 24 daily. l ended release 24hr CYANOCOBALA 2018-0 Yes Take by Met [facility] MIN, 31 [...] l tablet daily. ipratropium 2019-0 Yes 3mL [id number] Take 3 mL Methodi -albuterol 1-[id number] (DUO-NEB) 00:00: 3D nebulizati Ho [...] 8 per minute). ipratropium 2019-0 Yes 3mL Q.[id number] Take 3 mL Methodi -albuterol 1-[id number] (DUO-NEB) 00:00: 3D nebulizati Ho spita 0.5-2.5 00 on every 6 l mg/mL (six) nebulizer hours while awake. naloxone 2019-0 Yes .2mg Infuse 0.5 Met [facility] (NARCAN) 1-07 mL (0.[address] 0.4 mg/mL 00:00: total) Hospit a injection 00 into a l venous catheter once as needed for respirator y depression (as needed for RR rate 8 per minute). ipratropium 2019- Yes 3mL Q.[id number] Take 3 mL Methodi -albuterol 1-[id number] (DUO-NEB) 00:00: 3D nebulizati Ho spita 0.5-2.5 00 on every 6 l mg/mL (six) nebulizer hours while awake. naloxone 2018- Yes .2mg Infuse 0.5 Met hodi (NARCAN) 1-07 mL (0.[address] 0.4 mg/mL 00:00: total) Hospit a injection 00 into a l venous catheter once as needed for respirator y depression (as needed for RR rate 8 per minute). Aspirin Yes 81 mg = 1 Memor ia Enteric 3-05 tab, PO, l Coated 81 18:48: Daily, 0 Herm sly mg oral 00 Refill(s) delayed release tablet tamsulosin Yes 0.4 mg = 1 M emoria 0.4 mg oral 305 cap, PO, l capsule 18:48: Daily, 0 Kevin n 00 Refill(s) predniSONE predniSONE No 1{table QD predniSONE 5 MG 5 MG t} 5 MG Tylenol 325 Tylenol 325 No 1{table 6xD Tylenol MG MG t_as_ne 325 MG eded} Gabapentin Gabapentin No 1{table QD Gabapentin 600 MG 600 MG t} 600 MG DULoxetine DULoxetine No 1{capsu QD DULoxetine HCl 30 MG HCl 30 MG le} HCl 30 MG Rosuvastati Rosuvastati No 1{table QD Rosuvastat n Calcium n Calcium t} in Calcium 20 MG 20 MG 20 MG Metoprolol Metoprolol No 1{table BID Metoprolol Tartrate 25 Tartrate 25 t_with_ Tartrate MG MG food} 25 MG Eliquis 2.5 Eliquis 2.5 No Eliquis mg 2.5 mg mg 2.5 mg 2.5 mg 2.5 mg Vital Signs Vital Name Observation Time Observation Value Comments Source height 2022-01-24 11:00:00 64 [in_i] [facility] weight 2022-01-24 11:00:00 160 [lb_av] [facility] temperature 2022-01-24 11:00:00 97.7 [degF] [facility] bmi 2022-01-24 11:00:00 27.46 kg/m2 [facility] oximetry 2022-01-24 11:00:00 96 % [facility] respiratory rate 2022-01-24 11:00:00 18 /min Comm on [facility] blood pressure 2022-01-24 11:00:00 110 mm[Hg] [facility] - systolic [facility] blood pressure 2022-01-24 11:00:00 60 mm[Hg] [facility] - diastolic [facility] Systolic blood 2021-10-25 00:11:00 117 mm[Hg] [facility]iver [facility] Diastolic blood 2021-10-25 00:11:00 86 mm[Hg] Unive rsity of [facility] Heart rate 2021-10-25 00:11:00 150 /min [facility] Body temperature 2021-10-25 00:11:00 37.22 [facility]ell [facility] Respiratory rate 2021-10-25 00:11:00 16 /min [facility] Body weight 2021-10-25 00:11:00 77.111 kg [facility] BMI 2021-10-25 00:11:00 28.29 kg/m2 [facility] Oxygen saturation in 2021-10-25 00:11:00 94 /min University Arterial blood by [facility] Pulse oximetry Branch Systolic blood 2021-05-14 19:48:00 124 mm[Hg] Univer [facility]ity [facility] Diastolic blood 2021-05-14 19:48:00 80 mm[Hg] Unive rsity of [facility] Heart rate 2021-05-14 19:48:00 77 /min Universi [facility] Body temperature 2021-05-14 19:48:00 36.56 Maribell [facility] Respiratory rate 2021-05-14 19:48:00 20 /min [facility] Oxygen saturation in 2021-05-14 19:48:00 92 /min University of Arterial blood by [facility] Pulse oximetry Branch Body height 2021-05-14 17:35:00 167.6 [facility] 2021-05-14 17:35:00 76.204 kg [facility] BMI 2021-05-14 17:35:00 27.12 kg/m2 [facility] Systolic blood 2020-12-13 18:20:00 114 mm[Hg] Univer sity of pressure [facility] Diastolic blood 2020-12-13 18:20:00 69 mm[Hg] Unive rsity of pressure [facility] Body height 2020-12-13 18:20:00 165.1 cm [facility] Body weight 2020-12-13 18:20:00 73.029 kg [facility] BMI 2020-12-13 18:20:00 26.79 kg/m2 [facility] Systolic (mm Hg) 2022-05-28 18:51:00 [place] rial [place] Diastolic (mm Hg) 2022-05-28 18:51:00 Mem orial [place] Heart Rate 2022-05-28 18:51:00 [facility] Height 2022-05-28 18:51:00 5 [ft_i] [facility] Weight 2022-05-28 18:51:00 [facility] BMI Calculated 2022-05-28 18:51:00 Memori al [place] Systolic (mm Hg) 2022-01-23 17:14:00 [place] rial [place] Diastolic (mm Hg) 2022-01-23 17:14:00 Mem orial [place] Heart Rate 2022-01-23 17:14:00 [facility] [place] Height 2022-01-23 17:14:00 5 [ft_i] [facility] Weight 2022-01-23 17:14:00 [facility] BMI Calculated 2022-01-23 17:14:00 Memori al [place] Systolic (mm Hg) 2021-10-23 16:05:00 Turner rial [place] Diastolic (mm Hg) 2021-10-23 16:05:00 Mem orial [place] Heart Rate 2021-10-23 16:05:00 [facility] [place] Respitory Rate 2021-10-23 16:05:00 Memori al [place] Systolic (mm Hg) 2021-09-19 14:03:00 [place] rial [place] Diastolic (mm Hg) 2021-09-19 14:03:00 Mem orial [place] Heart Rate 2021-09-19 14:03:00 [facility] [place] Respitory Rate 2021-09-19 14:03:00 Memori al [place] Systolic (mm Hg) 2021-04-18 20:08:00 [place] rial [place] Diastolic (mm Hg) 2021-04-18 20:08:00 Mem orial [place] Heart Rate 2021-04-18 20:08:00 [facility] [place] Respitory Rate 2021-04-18 20:08:00 Memori al [place] Height 2021-04-18 20:08:00 162.56 cm [facility] [place] Weight 2021-04-18 20:08:00 [facility] [place] BMI Calculated 2021-04-18 20:08:00 Memori al [place] Systolic (mm Hg) 2021-03-06 20:28:00 [place] rial [place] Diastolic (mm Hg) 2021-03-06 20:28:00 Mem orial [place] Heart Rate 2021-03-06 20:28:00 [facility] [place] Respitory Rate 2021-03-06 20:28:00 Memori al [place] Height 2021-03-06 20:28:00 165.1 cm [facility] [place] Weight 2021-03-06 20:28:00 [facility] [place] BMI Calculated 2021-03-06 20:28:00 Memori al [place] Systolic (mm Hg) 2020-11-09 14:54:00 Turner rial [place] Diastolic (mm Hg) 2020-11-09 14:54:00 Mem orial [place] Heart Rate 2020-11-09 14:54:00 [facility] [place] Respitory Rate 2020-11-09 14:54:00 Memori al [place] Systolic (mm Hg) 2020-04-06 15:15:00 Turner rial [place] Diastolic (mm Hg) 2020-04-06 15:15:00 Mem orial [place] Heart Rate 2020-04-06 15:15:00 [facility] [place] Respitory Rate 2020-04-06 15:15:00 Memori al [place] Height 2020-04-06 15:15:00 162.56 cm [facility] [place] Weight 2020-04-06 15:15:00 [facility] BMI Calculated 2020-04-06 15:15:00 Memori al [place] Systolic (mm Hg) 2020-02-25 20:24:00 [place] rial [place] Diastolic (mm Hg) 2020-02-25 20:24:00 Mem orial [place] Heart Rate 2020-02-25 20:24:00 [facility] [place] Respitory Rate 2020-02-25 20:24:00 Memori al [place] Height 2020-02-25 20:24:00 165.1 cm [facility] [place] Weight 2020-02-25 20:24:00 [facility] [place] BMI Calculated 2020-02-25 20:24:00 Memori al [place] Systolic (mm Hg) 2020-01-27 16:46:00 Turner rial [place] Diastolic (mm Hg) 2020-01-27 16:46:00 Mem orial [place] Heart Rate 2020-01-27 16:46:00 [facility] [place] Respitory Rate 2020-01-27 16:46:00 Memori al [place] Height 2020-01-27 16:46:00 162.56 cm [facility] [place] Weight 2020-01-27 16:46:00 [facility] BMI Calculated 2020-01-27 16:46:00 Memori al [place] Temperature Oral (F) 2019-07-30 14:05:00 98.6 F [facility] [place] Systolic (mm Hg) 2019-07-30 14:05:00 [place] [facility] [place] Diastolic (mm Hg) 2019-07-30 14:05:00 Mem orial [place] Heart Rate 2019-07-30 14:05:00 [facility] [place] Respitory Rate 2019-07-30 14:05:00 Memori al [place] Height 2019-07-30 14:05:00 165.1 cm [facility] [place] Weight 2019-07-30 14:05:00 [facility] [place] BMI Calculated 2019-07-30 14:05:00 Memori al [place] Systolic (mm Hg) 2019-05-07 16:32:00 [place] rial [place] Diastolic (mm Hg) 2019-05-07 16:32:00 Mem orial [place] Heart Rate 2019-05-07 16:32:00 [facility] [place] Respitory Rate 2019-05-07 16:32:00 Memori al [place] Height 2019-05-07 16:32:00 165.1 cm [facility] [place] Weight 2019-05-07 16:32:00 [facility] [place] BMI Calculated 2019-05-07 16:32:00 Memori al [place] Systolic (mm Hg) 2019-01-29 20:06:00 [place] Diastolic (mm Hg) 2019-01-29 20:06:00 Mem orial [place] Heart Rate 2019-01-29 20:06:00 [facility] [place] Respitory Rate 2019-01-29 20:06:00 Memori al [place] Height 2019-01-29 20:06:00 165.1 cm [facility] [place] Weight 2019-01-29 20:06:00 [facility] BMI Calculated 2019-01-29 20:06:00 Memori al [place] Weight 2018-07-30 14:21:00 [facility] [place] BMI Calculated 2018-07-30 14:21:00 Memori al [place] Heart Rate 2018-07-30 14:21:00 [facility] [place] Height 2018-07-30 14:21:00 167.64 cm [facility] [place] Systolic (mm Hg) 2018-07-30 14:21:00 [place] rial [place] Diastolic (mm Hg) 2018-07-30 14:21:00 Mem orial [place] Procedures Procedure Date / Time Performing Clinician Source Performed XR LUMBAR SPINE 2 VW 2021-05-14 19:01:00 Alma Mccarthy [facility] XR KNEE <3 VW RIGHT 2021-05-14 19:01:00 Alma Mccarthy [facility] XR SHOULDER 2+ VW RIGHT 2021-05-14 19:01:00 lAma [facility]cc[facility] HEAD WO CONTRAST 2021-05-14 18:42:14 Alma Mccarthy [facility] CONSENT/REFUSAL FOR 2021-05-14 17:22:17 Doctor Unassigned, [facility] NOTICE OF PRIVACY 2021-05-14 17:21:58 Doctor Unassigned, No [facility] Name [facility] Laminectomy for [facility] decompression and exploration Plan of Care Planned Activity Planned Date Details Comments Source Future Scheduled 2022-06-08 COVID-19 VACCINE (#1) [facility] Hospital Test 01:05:07 [code = COVID-19 VACCINE (#1)] Future Scheduled 2022-06-08 SHINGLES VACCINES (1 [facility] Test 01:05:07 of 2) [code = SHINGLES VACCINES (1 of 2)] Future Scheduled 2022-06-08 65+ PNEUMOCOCCAL [facility] Test 01:05:07 VACCINE (1 - PCV) [code = 65+ PNEUMOCOCCAL VACCINE (1 - PCV)] Future Scheduled 2022-06-08 INFLUENZA VACCINE [facility] Test 01:05:07 [code = INFLUENZA VACCINE] Future Scheduled 2022-01-12 HEPATITIS B VACCINES Met [facility] Test 05:39:19 (1 of 3 - 3-dose series) [code = HEPATITIS B VACCINES (1 of 3 - 3-dose series)] Future Scheduled 2022-01-12 COVID-19 VACCINE (#1) [facility] Hospital Test 05:39:19 [code = COVID-19 VACCINE (#1)] Future Scheduled 2022-01-12 SHINGLES VACCINES (1 Met [facility] Test 05:39:19 of 2) [code = SHINGLES VACCINES (1 of 2)] Future Scheduled 2022-01-12 65+ [facility] 05:39:19 VACCINE (1 - PCV) [code = 65+ PNEUMOCOCCAL VACCINE (1 - PCV)] Future Scheduled 2022-01-12 INFLUENZA VACCINE [facility] Test 05:39:19 [code = INFLUENZA VACCINE] Future Scheduled 2022-01-12 HEPATITIS B VACCINES Met [facility] Test 05:39:19 (1 of 3 - 3-dose series) [code = HEPATITIS B VACCINES (1 of 3 - 3-dose series)] Future Scheduled 2022-01-12 COVID-19 VACCINE (#1) [facility] Hospital Test 05:39:19 [code = COVID-19 VACCINE (#1)] Future Scheduled 2022-01-12 SHINGLES VACCINES (1 [facility] Test 05:39:19 of 2) [code = SHINGLES VACCINES (1 of 2)] Future Scheduled 2022-01-12 65+ PNEUMOCOCCAL [facility] Test 05:39:19 VACCINE (1 - PCV) [code = 65+ PNEUMOCOCCAL VACCINE (1 - PCV)] Future Scheduled 2022-01-12 INFLUENZA VACCINE Method [facility] Hospital Test 05:39:19 [code = INFLUENZA VACCINE] Encounters Start End Encounter Admission Attending Care Care Encounter Source Date/Time Date/Time Type Type Clinicians Facility Department ID 2022-01-24 Outpatient ARIELLA Toussaint [facility] [id number] Common 11:04:04 Maria Guadalupe [id number] [facility] 2022-09-18 2022-09-18 Outpatient MHIE MHIE [id number] Memoria 13:30:00 13:30:00 32 l [place] 2022-05-28 2022-05-29 Outpatient MHIE MNA [id number] Memoria 19:00:00 04:59:59 Neurology 31 l [place] 2022-05-28 2022-05-28 Outpatient NOHELIA BoucherMISCHER 001 [id number] 14:00:00 23:59:59 Tariq 31 [place] 2022-05-28 2022-05-28 Outpatient MHIE MHIE [id number] Memoria 14:00:00 14:00:00 31 l [place] 2022-05-23 2022-05-23 Ambulatory MHIE MNA [id number] Memoria 14:30:00 14:30:00 Pre-Reg Neurology 30 l [place] 2022-05-23 2022-05-23 Outpatient MHIE MHIE [id number] Memoria 09:30:00 09:30:00 30 john [place] 2022-05-23 2022-05-23 Outpatient NOHELIA Boucher MISCHER [id number] 09:30:00 09:30:00 Tariq 30 [place] 2022-01-23 2022-01-24 Outpatient MHIE MNA [id number] Memoria 17:15:00 05:59:59 Neurology 29 l [place] 2022-01-24 2022-01-[address] [facility] [id number] Co mmon 00:00:00 00:00:00 VISIT EST Spir it PT LEVEL 3 - [facility] 2022-01-23 2022-01-23 Outpatient FAZAL BoucherJAMEL APARICIOMISCHER [id number] 11:15:00 23:59:59 Tariq 29 [place] 2022-01-23 2022-01-23 Outpatient MHIE MHIE [id number] Memoria 11:15:00 11:15:00 29 john [place] 2022-01-23 2022-01-23 Outpatient MHIE MHIE [id number] Memoria 11:15:00 11:15:00 29 john [place] 2021-10-24 2021-10-24 Outpatient R GRACY [facility] [id number] Univers 20:00:00 20:00:00 [facility] 2021-10-24 2021-10-24 Nurse Nurse, [facility] [id number] Univers 19:15:00 19:35:00 Visit [facility] [id number] [employer] [facility] [id number] John as LEOLA?BLEA [id number] [address] MEDICAL OFFICE BUILDING 2021-10-24 2021-10-24 Outpatient R GRACY [facility] [id number] Univers 19:15:00 19:15:00 [facility] 2021-10-23 2021-10-24 Outpatient nullFlavo MNA [id number] Memoria 16:00:00 04:59:59 r Neurology 28 l [place] 2021-10-23 2021-10-24 Outpatient nullFlavo MNA [id number] Memoria 16:00:00 04:59:59 r Neurology 28 l [place] 2021-10-23 2021-10-23 Outpatient NOHELIA BoucherMDJAMEL [id number] 11:00:00 23:59:59 Tariq 28 [place] 2021-10-23 2021-10-23 Outpatient MHIE MHIE [id number] Memoria 11:00:00 11:00:00 28 john [place] 2021-10-16 2021-10-18 Outside nullFlavo MNA [id number] Memoria 13:21:22 04:59:59 Medical r Neurology 29 l Records Pop [place] 2021-10-16 2021-10-18 Outside nullFlavo MNA [id number] Memoria 13:21:22 04:59:59 Medical r Neurology 29 l [place] 2021-10-16 2021-10-17 Outpatient [facility] [id number] 08:21:22 23:59:59 29 2021-10-05 2021-10-05 Ambulatory nullFlavo MNA [id number] Memoria 14:00:00 14:00:00 Pre-Reg r Neurology 27 l [place] 2021-10-05 2021-10-05 Ambulatory nullFlavo MNA [id number] Memoria 14:00:00 14:00:00 Pre-Reg r Neurology 27 l [place] 2021-10-05 2021-10-05 Outpatient Citlaly [facility] [id number] 09:00:00 09:00:00 Tariq 27 [place] 2021-10-03 2021-10-03 Outpatient MHIE JUSTIN [id number] Memoria 09:00:00 09:00:00 27 john [place] 2021-09-19 2021-09-20 Outpatient nullFlavo MNA [id number] Memoria 14:00:00 04:59:59 r Neurology 26 l [place] 2021-09-19 2021-09-20 Outpatient nullFlavo MNA [id number] Memoria 14:00:00 04:59:59 r Neurology 26 l [place] 2021-09-19 2021-09-19 Outpatient Citlaly [facility] [id number] 09:00:00 23:59:59 Tariq 26 [place] 2021-09-19 2021-09-19 Outpatient MHIE MHIE [id number] Memoria 09:00:00 09:00:00 26 john [place] 2021-09-05 2021-09-07 Outside nullFlavo MNA [id number] Memoria 16:58:30 04:59:59 Medical r Neurology 28 l [place] 2021-09-05 2021-09-07 Outside nullFlavo MNA [id number] Memoria 16:58:30 04:59:59 Medical r Neurology 28 l Records Pop [place] 2021-09-05 2021-09-06 Outpatient MHMISCHER MHMISCHER [id number] 11:58:30 23:59:59 28 2021-08-09 2021-08-11 Outside nullFlavo MNA [id number] Memoria 15:30:38 04:59:59 Medical r Neurology 27 l Records Pop [place] 2021-08-09 2021-08-11 Outside nullFlavo MNA [id number] Memoria 15:30:38 04:59:59 Medical r Neurology 27 l Records Pop [place] 2021-08-09 2021-08-10 Outpatient MHMISCHER MHMISCHER [id number] 10:30:38 23:59:59 27 2021-07-27 2021-07-27 Ambulatory nullFlavo MNA [id number] Memoria 15:15:00 15:15:00 Pre-Reg r Neurology 24 l [place] 2021-07-27 2021-07-27 Ambulatory nullFlavo MNA [id number] Memoria 15:15:00 15:15:00 Pre-Reg r Neurology 24 l [place] 2021-07-27 2021-07-27 Outpatient MHIE MHIE [id number] Memoria 10:15:00 10:15:00 24 l [place] 2021-07-27 2021-07-27 [id number] 10:15:00 10:15:00 Tariq 24 [place] 2021-07-02 2021-07-02 Outpatient MHIE MHIE [id number] Memoria 14:40:00 14:40:00 25 john [place] 2021-07-02 2021-07-02 Outpatient MHIE MHIE [id number] Memoria 14:40:00 14:40:00 25 john [place] 2021-06-28 2021-06-30 Outside nullFlavo MNA [id number] Memoria 13:29:04 04:59:59 Medical r Neurology 26 l Records Pop [place] 2021-06-28 2021-06-30 Outside nullFlavo MNA [id number] Memoria 13:29:04 04:59:59 Medical r Neurology 26 l Records Pop [place] 2021-06-28 2021-06-29 Outpatient MHMISCHER MHMISCHER [id number] 08:29:04 23:59:59 26 2021-05-30 2021-06-01 Outside nullFlavo MNA [id number] Memoria 18:23:59 04:59:59 Medical r Neurology 25 l Records Pop [place] 2021-05-30 2021-06-01 Outside nullFlavo MNA [id number] Memoria 18:23:59 04:59:59 Medical r Neurology 25 l Records Pop [place] 2021-05-30 2021-05-31 Outpatient MHMISCHER MHMISCHER [id number] 13:23:59 23:59:59 25 2021-05-24 2021-05-24 Ambulatory nullFlavo MNA [id number] Memoria 18:45:00 18:45:00 Pre-Reg r Neurology 23 l [place] 2021-05-24 2021-05-24 Ambulatory nullFlavo MNA [id number] Memoria 18:45:00 18:45:00 Pre-Reg r Neurology 23 l Pop [place] 2021-05-24 2021-05-24 Outpatient MHIE MHIE [id number] Memoria 13:45:00 13:45:00 23 l [place] 2021-05-24 2021-05-24 Outpatient ALESSANDRA BoucherMISCHER MHMISCHER [id number] 13:45:00 13:45:00 Tariq 23 [place] 2021-05-23 2021-05-23 Outpatient Adán TOUSSAINT [facility] [id number] Univers 11:00:00 11:00:00 MARIA GUADALUPE brewer of [facility] 2021-05-14 2021-05-14 [facility] [id number] Univers 11:36:00 14:58:00 Alma CHOU [id number] [facility] [id number] [facility] [id number] [place] [address] Branch 2021-05-14 2021-05-14 Outpatient Adán WHEELER [facility] [id number] Univers 11:15:00 11:15:00 SHANTELL brewer [facility] 2021-05-14 2021-05-14 Urgent Provider, [facility] [id number] Univers 10:40:00 11:00:00 Care Shantell Wheeler [facility] [id number] ity of [place] [id number] John as LEOLA?BLEA [phone] Il dical [address] MEDICAL OFFICE BUILDING 2021-05-14 2021-05-14 Outpatient Adán WHEELER [facility] ERT [id number] Univers 10:40:00 10:40:00 SHANTELL osman [facility] 2021-05-14 2021-05-14 Letter Doctor AVELINA [id number] Univers 00:00:00 00:00:00 (Out) Unassigned, JOSE ALBERTO 350.1.13.10 [facility]y [facility] [place] [facility] [id number] John as [phone] [facility] [address] [place] 2021-05-14 2021-05-14 Orders Doctor AVELINA [id number] [id number] Univers 00:00:00 00:00:00 Only Unassigned, JOSE ALBERTO 350.1.13.10 [facility] [place] [facility] 4.2.7.2.686 John as [phone] [address] 2021-04-18 2021-04-19 Outpatient nullFlavo MNA [id number] Memoria 20:00:00 05:59:59 r Neurology 22 l [address] [place] 2021-04-18 2021-04-19 Outpatient nullFlavo MNA [id number] Memoria 20:00:00 05:59:59 r Neurology 22 l [address] [place] 2021-04-18 2021-04-18 Outpatient NOHELIA BoucherSCHBENEDICTO [id number] 14:00:00 23:59:59 Tariq [address] [place] 2021-04-18 2021-04-18 Outpatient JUSTIN ANDERSON [id number] Memoria 14:00:00 14:00:00 22 l [place] 2021-03-06 2021-03-07 Outpatient nullFlavo MNA [id number] Memoria 20:15:00 05:59:59 r Neurology 21 l Pop [place] 2021-03-06 2021-03-07 Outpatient nullFlavo MNA [id number] Memoria 20:15:00 05:59:59 r Neurology 21 l Pop [place] 2021-03-06 2021-03-06 Outpatient FAZAL BoucherSCHER MISCHER [id number] 14:15:00 23:59:59 Tariq 21 Sohail 2021-03-06 2021-03-06 Outpatient MHIE MHIE [id number] Memoria 14:15:00 14:15:00 21 l Cuc[place] 2021-02-08 2021-02-08 Ambulatory nullFlavo MNA [id number] Memoria 16:15:00 16:15:00 Pre-Reg r Neurology 20 l Pop [place] 2021-02-08 2021-02-08 Ambulatory nullFlavo MNA [id number] Memoria 16:15:00 16:15:00 Pre-Reg r Neurology 20 l Pop [place] 2021-02-08 2021-02-08 Outpatient MHIE MHIE [id number] Memoria 10:15:00 10:15:00 20 l [place] 2021-02-08 2021-02-08 Outpatient FAZAL BoucherSCHER MISCHER [id number] 10:15:00 10:15:00 Tariq 20 [place] 2020-12-13 2020-12-13 [facility] 1.2.144.074 [id number] Univers 13:45:00 14:28:50 Visit [facility] 350.1.13.10 [facility] 4.2.7.2.686 John as LEOLA?BLEA [phone] [address] MEDICAL OFFICE BUILDING 2020-12-13 2020-12-13 Outpatient Adán BERG [facility] [id number] Univers 13:45:00 14:28:[address] [facility] 2020-12-13 2020-12-13 [facility] [id number] Univers 13:45:00 13:45:00 [facility] 2020-11-09 2020-11-10 Outpatient nullFlavo MNA [id number] Memoria 15:00:00 04:59:59 r Neurology 19 l [place] 2020-11-09 2020-11-10 Outpatient nullFlavo MNA [id number] Memoria 15:00:00 04:59:59 r Neurology 19 l Pop [place] 2020-11-09 2020-11-09 Outpatient ALESSANDRA BoucherMDSCHER MHMISCHER [id number] 10:00:00 23:59:59 Tariq Sauceda 2020-11-09 2020-11-09 Outpatient MHIE MHIE [id number] Memoria 10:00:00 10:00:00 19 john [place] 2020-10-26 2020-10-28 Outside nullFlavo MNA [id number] Memoria 19:39:10 04:59:59 Medical r Neurology 24 l Records Pop [place] 2020-10-26 2020-10-28 Outside nullFlavo MNA [id number] Memoria 19:39:10 04:59:59 Medical r Neurology 24 l Records Pop [place] 2020-10-26 2020-10-27 Outpatient MHMISCHER MHMISCHER [id number] 14:39:10 23:59:59 24 2020-10-27 2020-10-27 Orders Doctor AVELINA 1.2.840.114 [id number] Univers 00:00:00 00:00:00 Only Unassigned, JOSE ALBERTO 350.1.13.10 ity of [place] [facility] 4.2.7.2.686 John as [phone] [address] 2020-10-17 2020-10-19 Outside nullFlavo MNA [id number] Memoria 14:33:42 04:59:59 Medical r Neurology 23 l Records Pop [place] 2020-10-17 2020-10-19 Outside nullFlavo MNA [id number] Memoria 14:33:42 04:59:59 Medical r Neurology 23 l Records Pop [place] 2020-10-17 2020-10-18 Outpatient MHMISCHER MHMISCHER [id number] 09:33:42 23:59:59 23 2020-10-03 2020-10-05 Outside nullFlavo MNA [id number] Memoria 14:05:31 04:59:59 Medical r Neurology 22 l Records Pop [place] 2020-10-03 2020-10-05 Outside nullFlavo MNA [id number] Memoria 14:05:31 04:59:59 Medical r Neurology 22 l Records Pop [place] 2020-10-03 2020-10-04 Outpatient MHMISCHER MHMISCHER [id number] 09:05:31 23:59:59 22 2020-09-12 2020-09-14 Outside nullFlavo MNA [id number] Memoria 13:15:26 04:59:59 Medical r Neurology 21 l Records Pop [place] 2020-09-12 2020-09-14 Outside nullFlavo MNA [id number] Memoria 13:15:26 04:59:59 Medical r Neurology 21 l Records Pop [place] 2020-09-12 2020-09-13 Outpatient MHMISCHER MISCHER [id number] 08:15:26 23:59:59 21 2020-09-01 2020-09-03 Outside nullFlavo MNA [id number] Memoria 21:41:20 04:59:59 Medical r Neurology 20 l Records Pop [place] 2020-09-01 2020-09-03 Outside nullFlavo MNA [id number] Memoria 21:41:20 04:59:59 Medical r Neurology 20 l Records Pop [place] 2020-09-01 2020-09-02 Outpatient MHMISCHER MHMISCHER [id number] 16:41:20 23:59:59 20 2020-08-12 2020-08-14 Outside nullFlavo MNA [id number] Memoria 23:48:44 04:59:59 Medical r Neurology 19 l Records Pop [place] 2020-08-12 2020-08-14 Outside nullFlavo MNA [id number] Memoria 23:48:44 04:59:59 Medical r Neurology 19 l Records Pop [place] 2020-08-12 2020-08-13 Outpatient MHMISCHER MHMISCHER [id number] 18:48:44 23:59:59 19 2020-08-03 2020-08-03 [facility] 1.2.840.114 [id number] Univers 10:22:04 10:59:30 Visit [facility] 350.1.13.10 it y of Surgical 4.2.7.2.686 John as Specialti [phone] Il dical es [address] [facility] 2020-08-03 2020-08-03 [facility] [id number] Univers 10:00:00 10:00:00 [facility] 2020-07-27 2020-07-27 Office [facility] 1.2.840.114 [id number] Univers 10:23:38 10:56:44 Visit [facility] 350.1.13.10 it y of Surgical 4.2.7.2.686 John as Specialti [phone] Il dical es [address] [facility] 2020-07-27 2020-07-27 Outpatient [facility] [id number] Univers 10:30:00 10:30:00 [facility] 2020-07-20 2020-07-20 Office [facility] 1.2.840.114 [id number] Univers 10:38:06 10:53:06 Visit [facility] 350.1.13.10 it y of Surgical 4.2.7.2.686 John as Specialti [phone] Il dical es [address] [facility] 2020-07-20 2020-07-20 Outpatient [facility] [id number] Univers 10:45:00 10:45:00 [facility] 2020-07-17 2020-07-17 Orders Doctor AVELINA 1.2.840.114 [id number] Univers 00:00:00 00:00:00 Only Unassigned, JOSE ALBERTO 350.1.13.10 ity of [place] [facility] 4.2.7.2.686 John as [phone] [address] 2020-07-11 2020-07-11 Ambulatory nullFlavo MNA [id number] Memoria 15:00:00 15:00:00 Pre-Reg r Neurology 18 l Pop [place] 2020-07-11 2020-07-11 Ambulatory nullFlavo MNA [id number] Memoria 15:00:00 15:00:00 Pre-Reg r Neurology 18 l Pop [place] 2020-07-11 2020-07-11 Outpatient MHIE MHIE [id number] Memoria 10:00:00 10:00:00 18 l [place]uc[place] 2020-07-11 2020-07-11 Outpatient Citlaly [facility] [id number] 10:00:00 10:00:00 Tariq [place] Sauceda 2020-07-03 2020-07-03 Office [facility] 1.2.724.842 [id number] [facility] 14:05:02 14:20:59 Visit Sarah [facility] 350.1.13.10 it y of Surgical 4.2.7.2.686 John as Specialti [phone] Il dical es [address] [place] 2020-07-03 2020-07-03 Outpatient [facility] [id number] Univers 14:15:00 14:15:00 SARAH brewer [facility] 2020-06-20 2020-06-22 Outside nullFlavo MNA [id number] Memoria 14:09:53 04:59:59 Medical r Neurology 18 l Records Pop [place] 2020-06-20 2020-06-22 Outside nullFlavo MNA [id number] Memoria 14:09:53 04:59:59 Medical r Neurology 18 l Records [place] Cuco 2020-06-20 2020-06-21 Outpatient MHMISCHER [facility] [id number] 09:09:53 23:59:59 18 2020-06-12 2020-06-14 Outside nullFlavo MNA [id number] Memoria 20:48:48 04:59:59 Medical r Neurology 17 l Records Pop [place] 2020-06-12 2020-06-14 Outside nullFlavo MNA [id number] Memoria 20:48:48 04:59:59 Medical r Neurology 17 l Records [place] Cuco 2020-06-12 2020-06-13 Outpatient MHMISCHER MHMISCHER [id number] 15:48:48 23:59:59 17 2020-05-23 2020-05-25 Outside nullFlavo MNA [id number] Memoria 20:20:15 04:59:59 Medical r Neurology 16 l Records Pop [place] 2020-05-23 2020-05-25 Outside nullFlavo MNA [id number] Memoria 20:20:15 04:59:59 Medical r Neurology 16 l Records Pop [place] 2020-05-23 2020-05-24 Outpatient MHMISCHER MISCHER [id number] 15:20:15 23:59:59 16 2020-05-11 2020-05-13 Outside nullFlavo MNA [id number] Memoria 14:57:14 05:59:59 Medical r Neurology 15 l Records Pop [place] 2020-05-11 2020-05-13 Outside nullFlavo MNA [id number] Memoria 14:57:14 05:59:59 Medical r Neurology 15 l Records Pop [place] 2020-05-11 2020-05-12 Outpatient MHMISCHER MHMISCHER [id number] 08:57:14 23:59:59 15 2020-05-11 2020-05-12 Between nullFlavo MNA [id number] Memoria 19:26:29 19:26:29 Visit r Neurology 17 l Pop [place] 2020-05-11 2020-05-12 Between nullFlavo MNA [id number] Memoria 19:26:29 19:26:29 Visit r Neurology 17 l Pop [place] 2020-05-11 2020-05-12 Outpatient MHMISCHER MHMISCHER [id number] 13:26:29 13:26:29 17 2020-05-05 2020-05-05 [facility] 1.2.840.114 [id number] Univers 08:29:03 23:59:00 Encounter [facility] 350.1.13.10 ity of Surgical 4.2.7.2.686 John as Specialti [phone] Il dical es [address] [place] 2020-05-05 2020-05-05 Out[facility] [id number] Univers 08:29:03 23:59:00 FABI brewer [facility] 2020-05-05 2020-05-05 Office [facility] 1.2.593.876 [id number] Univers 08:14:43 09:03:52 Visit Sarah Berry [facility] 350.1.13.10 it y of Surgical 4.2.7.2.686 John as Specialti [phone] Me dical es [address] [place] 2020-05-03 2020-05-03 Telephone [facility] 1.2.840.114 [id number] Univers 00:00:00 00:00:00 Sarah Muñoz 350.1.13.10 it y of Surgical 4.2.7.2.686 John as Specialti [id number] Il dical es [address] [place] 2020-04-11 2020-04-13 Outside nullFlavo MNA [id number] Memoria 21:31:30 05:59:59 Medical r Neurology 14 l Records [place] u[place]co 2020-04-11 2020-04-13 Outside nullFlavo MNA [id number] Memoria 21:31:30 05:59:59 Medical r Neurology 14 l Records Pop [place] 2020-04-11 2020-04-12 Outpatient MHMISCHER MHMISCHER [id number] 15:31:30 23:59:59 14 2020-04-06 2020-04-07 Outpatient nullFlavo MNA [id number] Memoria 15:00:00 05:59:59 r Neurology 17 l Pop [place] 2020-04-06 2020-04-07 Outpatient nullFlavo MNA [id number] Memoria 15:00:00 05:59:59 r Neurology 17 l Pop [place] 2020-04-06 2020-04-06 Outpatient FAZAL BoucherSCHER MHMISCHER [id number] 09:00:00 23:59:59 Tariq Sauceda 2020-04-06 2020-04-06 Outpatient MHIE MHIE [id number] Memoria 09:00:00 09:00:00 17 john [place] 2020-04-05 2020-04-05 Office [facility] 1.2.632.482 [id number] Univers 14:33:47 15:08:49 Visit Sarah [facility] 350.1.13.10 it y of Surgical 4.2.7.2.686 John as Specialti [phone] Il dical es 198 [facility] 2020-04-05 2020-04-05 Out[facility] [id number] Univers 14:30:00 14:30:00 SARAH brewer [facility] 2020-03-30 2020-04-01 Outside nullFlavo MNA [id number] Memoria 18:38:14 05:59:59 Medical r Neurology 13 l Records Pop [place] 2020-03-30 2020-04-01 Outside nullFlavo MNA [id number] Memoria 18:38:14 05:59:59 Medical r Neurology 13 l Records Pop [place] 2020-03-30 2020-03-31 Outpatient MHMISCHER MHMISCHER [id number] 12:38:14 23:59:59 13 2020-03-27 2020-03-27 Orders Doctor AVELINA 1.2.840.114 [id number] Univers 00:00:00 00:00:00 Only Unassigned, JOSE ALBERTO 350.1.13.10 [place] [facility] 4.2.7.2.686 John as [phone] [address] 2020-02-25 2020-02-26 Outpatient nullFlavo MNA [id number] Memoria 20:00:00 05:59:59 r Neurology 16 l [place] Cuco 2020-02-25 2020-02-26 Outpatient nullFlavo MNA [id number] Memoria 20:00:00 05:59:59 r Neurology 16 l Pop [place] 2020-02-25 2020-02-25 Outpatient ALESSANDRA BoucherMISCHER MHMISCHER [id number] 14:00:00 23:59:59 Tariq Sauceda 2020-02-25 2020-02-25 Outpatient MHIE MHIE [id number] Memoria 14:00:00 14:00:00 16 l [place] 2020-01-27 2020-01-28 Outpatient nullFlavo MNA [id number] Memoria 16:45:00 05:59:59 r Neurology 15 l Pop [place] 2020-01-27 2020-01-28 Outpatient nullFlavo MNA [id number] Memoria 16:45:00 05:59:59 r Neurology 15 l Pop [place] 2020-01-27 2020-01-27 [id number] 10:45:00 23:59:59 Tariq 15 [place] 2020-01-27 2020-01-27 Outpatient MHIE MHIE [id number] Memoria 10:45:00 10:45:00 15 l [place] 2020-01-17 2020-01-19 Outside nullFlavo MNA [id number] Memoria 14:53:42 05:59:59 Medical r Neurology 11 l Records Pop [place] 2020-01-17 2020-01-19 Outside nullFlavo MNA [id number] Memoria 14:53:42 05:59:59 Medical r Neurology 11 l Records Pop [place] 2020-01-17 2020-01-18 Outpatient [facility] [id number] 08:53:42 23:59:59 11 2019-12-29 2019-12-31 Outside nullFlavo MNA [id number] Memoria 14:56:04 04:59:59 Medical r Neurology 10 l Records Pop [place] 2019-12-29 2019-12-31 Outside nullFlavo MNA [id number] Memoria 14:56:04 04:59:59 Medical r Neurology 10 l Records Pop [place] 2019-12-29 2019-12-30 Outpatient [facility] [id number] 09:56:04 23:59:59 10 2019 2019-12-22 Outside nullFlavo MNA [id number] Memoria 16:12:08 04:59:59 Medical r Neurology 09 l Records Pop [place] 2019 2019-12-22 Outside nullFlavo MNA [id number] Memoria 16:12:08 04:59:59 Medical r Neurology 09 l Records Pop [place] 2019-12-22 2019-12-[address] [facility] 1.2.840.114 [id number] 00:00:00 00:00:00 [facility] 350.1.13.10 [place] 4.2.7.2.686 Professio [phone] [place] [address] Office Building [facility] 2019-12-22 2019-12-22 [place] Breana [facility] 1.2.840.114 [id number] Univers 00:00:00 00:00:00 [facility] 350.1.13.10 it y of [place] 4.2.7.2.686 John as Professio [phone] [address] Office [facility] 2019 2019-12-21 Outpatient MHMISCHER MHMISCHER [id number] 11:12:08 23:59:59 09 2019 2019 [employer], [facility] 1.2.840.114 [id number] 14:33:07 14:38:53 [facility] 350.1.13.10 [place] 4.2.7.2.686 Professio [phone] [place] [address] Office Building [facility] 2019 2019 [employer]structor [employer], [facility] I [facility] 1.2. 840.114 [id number] [facility] 14:33:07 14:38:53 Visit [facility] 350.1.13 .10 ity of [place] 4.2.7.2.686 John as Professio [phone] [address] Office [facility] 2019 2019 Office [facility] 1.2.840.114 [id number] 14:04:23 14:19:23 Visit Maria Guadalupe [facility] 350.1.13.10 [place] 4.2.7.2.686 Professio [phone] [place] [address] Office Building [facility] 2019 2019 Office [facility] 1.2.840.114 [id number] [facility] 14:04:23 14:19:23 Visit Maria Guadalupe [facility] 350.1.13.10 it y of [place] 4.2.7.2.686 John as Professio [phone] [address] Office [facility] 2019 2019 Outpatient R BREANA, [facility] [id number] Univers 14:00:00 14:00:00 MARIA GUADALUPE brewer [facility] 2019-12-01 2019-12-03 Outside nullFlavo MNA [id number] Memoria 15:09:41 04:59:59 Medical r Neurology 08 l Records [place] 2019-12-01 2019-12-03 Outside nullFlavo MNA [id number] Memoria 15:09:41 04:59:59 Medical r Neurology 08 l Records Pop [place] 2019-12-01 2019-12-02 Outpatient MHMISCHER MHMISCHER [id number] 10:09:41 23:59:59 08 2019-11-22 2019-11-24 Outside nullFlavo MNA [id number] Memoria 19:18:01 04:59:59 Medical r Neurology 07 l Records Pop [place] 2019-11-22 2019-11-24 Outside nullFlavo MNA [id number] Memoria 19:18:01 04:59:59 Medical r Neurology 07 l Records Pop [place] 2019-11-22 2019-11-23 Outpatient MHMISCHER MHMISCHER [id number] 14:18:01 23:59:59 07 2019-11-02 2019-11-02 Ambulatory nullFlavo MNA [id number] Memoria 14:45:00 14:45:00 Pre-Reg r Neurology 14 l [place] 2019-11-02 2019-11-02 Ambulatory nullFlavo MNA [id number] Memoria 14:45:00 14:45:00 Pre-Reg r Neurology 13 l Pop [place] 2019-11-02 2019-11-02 Ambulatory nullFlavo MNA [id number] Memoria 14:45:00 14:45:00 Pre-Reg r Neurology 14 l [place] 2019-11-02 2019-11-02 Ambulatory nullFlavo MNA [id number] Memoria 14:45:00 14:45:00 Pre-Reg r Neurology 13 l Pop [place] 2019-11-02 2019-11-02 Outpatient MHIE MHIE [id number] Memoria 09:45:00 09:45:00 13 l [place] 2019-11-02 2019-11-02 Outpatient MHIE MHIE [id number] Memoria 09:45:00 09:45:00 14 john [place] 2019-11-02 2019-11-02 Outpatient Citlaly, MHMISCHER MHMISCHER [id number] 09:45:00 09:45:00 Tariqlisa Saucead 2019-11-02 2019-11-02 Outpatient Citlaly, MHMISCHER MHMISCHER [id number] 09:45:00 09:45:00 Tariq 13 [facility] 2019-10-28 2019-10-[address] [facility] 1.2.840.114 [id number] Univers 00:00:00 00:00:00 [facility] 350.1.13.10 it y of [place] 4.2.7.2.686 John as Lexi [phone] [address] Office [facility] 2019-10-27 2019-10-27 [facility] 1.2.562.858 [id number] Univers 14:29:56 23:59:00 Encounter Maria Guadalupe Chou 350.1.13.10 ity of [place] 4.2.7.2.686 [facility] [phone] [facility] [address] [place] 2019-10-27 2019-10-27 [facility] 1.2.840.114 [id number] Univers 09:30:00 14:28:00 Encounter Debi Chou 350.1.13.10 ity of [place] 4.2.7.2.686 [facility] [phone] [facility] [address] [place] 2019-10-27 2019-10-27 Outpatient [facility] [id number] Univers 00:00:00 00:00:00 DEBI ity of [facility] 2019-10-27 2019-10-27 Orders Doctor QUAN 1.2.840.114 [id number] Univers 00:00:00 00:00:00 Only Unassigned, JOSE ALBERTO 350.1.13.10 ity of [place] [facility] 4.2.7.2.686 John as [phone] [facility] [address] [place] 2019-10-27 2019-10-[address] [facility] 1.2.840.114 [id number] Univers 00:00:00 00:00:00 [facility] 350.1.13.10 it y of [place] 4.2.7.2.686 John as Professio [phone] [address] 2019-10-26 2019-10-[address] [facility] 1.2.840.114 [id number] Univers 00:00:00 00:00:00 [facility] 350.1.13.10 it y of [place] 4.2.7.2.686 John as Professio [phone] [address] 2019-10-06 2019-10-[address] [facility] 1.2.840.114 [id number] Univers 00:00:00 00:00:00 [facility] 350.1.13.10 it y of [place] 4.2.7.2.686 John as Professio [phone] [address] 2019-09-21 2019-09-21 [facility] 1.2.840.114 [id number] Univers 00:00:00 00:00:00 Maria Guadalupe Chou 350.1.13.10 i ty of [place] 4.2.7.2.686 [place] Profess[place] [phone] [address] 2019-09-21 2019-09-21 Orders Doctor AVELINA 1.2.840.114 [id number] Univers 00:00:00 00:00:00 Only Unassigned, JOSE ALBERTO 350.1.13.10 ity of [place] [facility] 4.2.7.2.686 John as [phone] [address] 2019-09-06 2019-09-06 Orders Doctor AVELINA 1.2.840.114 [id number] Univers 00:00:00 00:00:00 Only Unassigned, JOSE ALBERTO 350.1.13.10 ity of [place] [facility] 4.2.7.2.686 Ojhn as [phone] [address] 2019-07-30 2019-07-31 Outpatient nullFlavo MNA [id number] Memoria 14:15:00 04:59:59 r Neurology 11 l Pop [place] 2019-07-30 2019-07-31 Outpatient nullFlavo MNA [id number] Memoria 14:15:00 04:59:59 r Neurology 11 l Ppo [place] 2019-07-30 2019-07-30 Outpatient Citlaly, MISCHER MISCHER [id number] 09:15:00 23:59:59 Tariq 11 [place] 2019-07-30 2019-07-30 Outpatient MHIE MHIE [id number] Memoria 09:15:00 09:15:00 11 l [place] 2019-07-07 2019-07-07 [facility] 1.2.840.114 [id number] Univers 00:00:00 00:00:00 [facility] 350.1.13.10 it y of [place] 4.2.7.2.686 John as Professio [phone] [address] 2019-06-23 2019-06-[address] [facility] 1..840.114 [id number] Univers 00:00:00 00:00:00 [facility] 350.1.13.10 it y of [place] 4.2.7.2.686 John as Professio [phone] [address] 2019-06-22 2019-06-22 Emergency [facility] 1.2.930.715 [id number] Univers 12:48:01 14:20:00 Ata Chou 350.1.13.10 i ty of [place] 4.2.7.2.686 [place] [facility] [phone] [address] 2019-06-22 2019-06-22 Emergency X [facility] ERT [id number] Univers 12:48:01 14:20:00 ATA brewer of [facility] 2019-06-22 2019-06-[address] [facility] 1..840.114 [id number] Univers 00:00:00 00:00:00 [facility] 350.1.13.10 it y of [place] 4.2.7.2.686 John as Professio [phone] [address] 2019-05-27 2019-05-27 Orders Doctor AVELINA 1.2.840.114 [id number] Univers 00:00:00 00:00:00 Only Unassigned, JOSE ALBERTO 350.1.13.10 ity of [place] [facility] 4.2.7.2.686 John as [phone] [address] 2019-05-07 2019-05-08 Outpatient nullFlavo MNA [id number] Memoria 17:00:00 05:59:59 r Neurology 12 john [place] 2019-05-07 2019-05-08 Outpatient nullFlavo MNA [id number] Memoria 17:00:00 05:59:59 r Neurology 12 [place] 2019-05-07 2019-05-07 Outpatient ALESSANDRA BoucherMISCHBENEDICTO MHMISCHER [id number] 11:00:00 23:59:59 Tariq [place] 2019-05-07 2019-05-07 Outpatient MHIE MHIE [id number] Memoria 11:00:00 11:00:00 12 [facility] 2019-03-25 2019-03-25 Office Rafiq, [facility] 1.2.840.114 [id number] Univers 13:36:36 14:30:43 Visit [facility] 350.1.13.10 i ty of [place] 4.2.7.2.686 John as Professio [phone] [address] 2019-03-25 2019-03-25 Orders Doctor AVELINA 1.2.840.114 [id number] Univers 00:00:00 00:00:00 Only Unassigned, JOSE ALBERTO 350.1.13.10 ity [facility] [place] [facility] 4.2.7.2.686 John as [phone] [address] 2019-01-29 2019-01-30 Outpatient nullFlavo MNA [id number] Memoria 19:45:00 05:59:59 r Neurology 10 john [place] 2019-01-29 2019-01-30 Outpatient nullFlavo MNA [id number] Memoria 19:45:00 05:59:59 r Neurology 10 john [place] 2019-01-29 2019-01-29 Outpatient Krealyssa, [facility] [id number] 13:45:00 23:59:59 Tariq 10 [place] 2019-01-29 2019-01-29 Outpatient MHIE MHIE [id number] Memoria 13:45:00 13:45:00 10 john [place] 2019-01-19 2019-01-19 Ambulatory nullFlavo MNA [id number] Memoria 19:00:00 19:00:00 Pre-Reg r Neurology 09 john [place] 2019-01-19 2019-01-19 Ambulatory nullFlavo MNA [id number] Memoria 19:00:00 19:00:00 Pre-Reg r Neurology 09 john [place] 2019-01-19 2019-01-19 Outpatient MHIE MHIE [id number] Memoria 13:00:00 13:00:00 09 john [place] 2019-01-19 2019-01-19 [id number] 13:00:00 13:00:00 Tariq 09 [place] 2018-11-03 2018-11-03 Ambulatory nullFlavo MNA [id number] Memoria 14:15:00 14:15:00 Pre-Reg r Neurology 08 john Lord Lilburn 2018-11-03 2018-11-03 Ambulatory nullFlavo MNA [id number] Memoria 14:15:00 14:15:00 Pre-Reg r Neurology 08 john Lord Lilburn 2018-11-03 2018-11-03 Outpatient MHIE MHIE [id number] Memoria 09:15:00 09:15:00 08 john Lilburn 2018-11-03 2018-11-03 Outpatient [facility] [id number] 09:15:00 09:15:00 Tariq 08 Sohail 2018-07-30 2018-07-31 Outpatient nullFlavo MNA [id number] Memoria 14:15:00 04:59:59 r Neurology 07 john Lord Cuco 2018-07-30 2018-07-31 Outpatient nullFlavo MNA [id number] Memoria 14:15:00 04:59:59 r Neurology 07 john Lord Cuco 2018-07-30 2018-07-30 Outpatient Citlaly [facility] [id number] 09:15:00 23:59:59 Tariq Rubio Sauceda 2018-07-30 2018-07-30 Outpatient MHIE MHIE [id number] Memoria 09:15:00 09:15:00 07 john Norwood 2018-06-18 2018-06-18 Outpatient MHIE MHIE [id number] Memoria 16:00:00 16:00:00 06 john Norwood 2018-06-18 2018-06-18 Outpatient MHIE MHIE [id number] Memoria 16:00:00 16:00:00 06 john Norwood 2018-06-02 2018-06-02 Outpatient MHIE MHIE [id number] Memoria 08:30:00 08:30:00 05 john Norwood 2018-06-02 2018-06-02 Outpatient MHIE MHIE [id number] Memoria 08:30:00 08:30:00 05 john Norwood 2018-04-15 2018-04-17 Outside nullFlavo MNA [id number] Memoria 20:22:00 05:59:59 Medical r Neurology 05 l Records Pop Norwood 2018-04-15 2018-04-17 Outside nullFlavo MNA [id number] Memoria 20:22:00 05:59:59 Medical r Neurology 05 l Records Pop Knappann 2018-04-15 2018-04-16 Outpatient [facility]ER [facility]ER [id number] 14:22:00 23:59:59 05 2018-04-10 2018-04-12 Outside nullFlavo MNA [id number] Memoria 19:36:00 05:59:59 Medical r Neurology 04 l Records Pop Knappann 2018-04-10 2018-04-12 Outside nullFlavo MNA [id number] Memoria 19:36:00 05:59:59 Medical r Neurology 04 l Records Pop Cuco 2018-04-10 2018-04-11 Outpatient MHMISCHER MHMISCHER [id number] 13:36:00 23:59:59 2018-03-23 2018-03-25 Outside nullFlavo MNA [id number] Memoria 20:14:00 05:59:59 Medical r Neurology 03 l Records [place] Cuco 2018-03-23 2018-03-25 Outside nullFlavo MNA [id number] Memoria 20:14:00 05:59:59 Medical r Neurology 03 l Records Pop [place] 2018-03-23 2018-03-24 Outpatient MHMISCHER MHMISCHER [id number] 14:14:00 23:59:59 03 2018-03-14 2018-03-16 Outside nullFlavo MNA [id number] Memoria 16:20:00 05:59:59 Medical r Neurology 02 l Records Pop [place] 2018-03-14 2018-03-16 Outside nullFlavo MNA [id number] Memoria 16:20:00 05:59:59 Medical r Neurology 02 l Records Pop [place] 2018-03-14 2018-03-15 Outpatient MHMISCHER MHMDSCHER [id number] 10:20:00 23:59:59 02 2018-02-04 2018-02-04 Ambulatory nullFlavo MNA [id number] Memoria 15:45:00 15:45:00 Pre-Reg r Neurology 04 l Pop Knappann 2018-02-04 2018-02-04 Ambulatory nullFlavo MNA [id number] Memoria 15:45:00 15:45:00 Pre-Reg r Neurology 04 john Knappann 2018-02-04 2018-02-04 Outpatient MHIE MHIE [id number] Memoria 09:45:00 09:45:00 04 john KnappCuco 2018-02-04 2018-02-04 Outpatient [id number] 09:45:00 09:45:00 Tariq Sauceda 2017-12-23 2017-12-23 Ambulatory nullFlavo MNA [id number] Memoria 14:00:00 14:00:00 Pre-Reg r Neurology 01 john Lord Cuco 2017-12-23 2017-12-23 Ambulatory nullFlavo MNA [id number] Memoria 14:00:00 14:00:00 Pre-Reg r Neurology 01 john [place] Cuco 2017-12-23 2017-12-23 Outpatient MHIE MHIE [id number] Memoria 09:00:00 09:00:00 01 john [place] 2017-12-23 2017-12-23 Outpatient [facility] [id number] 09:00:00 09:00:00 Tariq Sauceda 2017-11-05 2017-11-05 Outpatient MHIE MHIE [id number] Memoria 10:30:00 10:30:00 03 john Cuco 2017-11-05 2017-11-05 Outpatient MHIE MHIE [id number] Memoria 10:30:00 10:30:00 02 john [place] 2017-11-05 2017-11-05 Outpatient MHIE MHIE [id number] Memoria 10:30:00 10:30:00 03 john Cuco 2017-11-05 2017-11-05 Outpatient MHIE MHIE [id number] Memoria 10:30:00 10:30:00 02 john [place] 2017-06-24 2017-06-24 Outpatient MHIE MHIE [id number] Memoria 11:30:00 11:30:00 00 john [place] 2017-06-24 2017-06-24 Outpatient MHIE MHIE [id number] Memoria 11:30:00 11:30:00 00 john [place] Results This patient has no known results.
[2022-07-13 12:05] LABS: Albumin 3.5 g/dL (3.4-5.0); Bilirubin Direct 0.2 mg/dL (0-0.2); Bilirubin Total 0.8 mg/dL (0.2-1.0); Magnesium 1.4 mg/dL (1.6-2.4); Potassium 4.7 mEq/L (3.5-5.1); Protein, Total 7.2 g/dL (6.4-8.2); Troponin High Sensitivity 26.9 pg/mL (<58.9)
--- NOTE | 2022-07-13 12:34 | RAD REPORT ---
EXAM DESCRIPTION: CT - Head Brain Wo Cont - 07/13/2022 11:50 am CLINICAL HISTORY: Confused;Dizziness COMPARISON: 10/24/2021 TECHNIQUE: Noncontrast head CT images ad were obtained without IV contrast. Multiplanar reformats we re generated and reviewed. All CT scans are performed using dose optimization technique as appropriate and may include automated exposure control or mA/KV adjustment according to patient size. FINDINGS: No intracranial hemorrhage, mass, or edema. Midline structures are unremarkable. Normal ventricular caliber for age. Mild diffuse parenchymal volume loss. Patchy hypoattenuation in the periventricular and basal ganglia regions is stable, and nonspecific, suggestive of chronic small vessel ischemic changes. Mcnamara-white matter differentiation is otherwise preserved, without evidence of acute infarct. No abnormal extra-a xial fluid collections. Focus of calcification in the right dentate nucleus is stable. Mastoid air cells are well aerated. Mild inflammatory mucosal thickening in the left maxillary sinus. No acute bony findings. IMPRESSION: No evidence of an acute intracranial process.
--- NOTE | 2022-07-13 12:38 | RAD REPORT ---
EXAM DESCRIPTION: [facility] Single View07/13/2022 11:47 am CLINICAL HISTORY: AMS COMPARISON: Chest Single View dated 10/24/2021; Chest Single View dated 03/23/2018; Chest Single View dated 04/24/2016; Chest Single View dated 02/16/2016 TECHNIQUE: Portable AP view of the chest. FINDINGS: Decreased inspiratory effort, limits evaluation. Hazy right basilar airspace opacities, co uld reflect an early infectious or inflammatory process. Other bibasilar streaky opacities may be sug gestive of atelectasis. No pneumothorax or effusion. The cardiomediastinal contours are unremarkable. IMPRESSION: Hazy right basilar airspace opacities, concerning for early pneumonia.
--- NOTE | 2022-07-13 13:12 | RAD REPORT ---
EXAM DESCRIPTION: CT - Head angio - 07/13/2022 12:37 pm CLINICAL HISTORY: DIZZINESS COMPARISON: Head Brain Wo Cont dated 07/13/2022; Head Brain Wo Cont dated 10/24/2021; Neck Angio dated 07/13/2022 TECHNIQUE: Axial CT angiography images of the head was performed with multiplanar and maximum intens ity projection reconstructions. Images performed following intravenous administration of 95mL Isovue 370. All CT scans are performed using dose optimization technique as appropriate and may include automated exposure control or mA/KV adjustment according to patient size. FINDINGS: Moderate atherosclerotic calcific plaque of the carotid siphons bilaterally. No evidence of large vessel occlusion. No evidence of aneurysm or dissection flap is detected. Focal moderate stenosis along the proximal left P2 segment, sagittal image 132. No other flow-limiting sten osis or vascular malformation identified. Antegrade flow is seen in the vertebral arteries. The vertebral arteries are codominant. The visualized dural venous sinuses are grossly patent. IMPRESSION: No evidence of large vessel occlusion. Focal moderate atherosclerotic stenosis of the proximal left P2 segment. No other Flow-limiting steno sis.
--- NOTE | 2022-07-13 13:24 | RAD REPORT ---
EXAM DESCRIPTION: CT - Neck Angio - 07/13/2022 12:38 pm CLINICAL HISTORY: dizzy and confused COMPARISON: Head C Spine Mpr Wo Con dated 06/08/2015Head C Spine Mpr Wo Con dated 06/08/2015; Head Bra in Wo Cont dated 10/24/2021 TECHNIQUE: Axial CT angiography images of the head was performed with multiplanar and maximum intens ity projection reconstructions. Images performed following intravenous administration of 95mL Isovue 370. All CT scans are performed using dose optimization technique as appropriate and may include automated exposure control or mA/KV adjustment according to patient size. FINDINGS: A left aortic arch is identified with normal three vessel configuration of the great vesse ls. No significant flow abnormality is seen of the common carotid bilaterally. No significant stenosis is identified involving the cervical segments of both internal carotid arteri es. Mild left and moderate right atherosclerotic plaque at the carotid bifurcations. Normal flow is seen within both vertebral arteries. Limited evaluation of the mid to distal right P1 segment secondary to streak artifact resulting from dense venous contrast. Incidentally noted 3 rosaura meter saccular aneurysm or small infundibulum arising from the right distal V2 segment, see series 40 2, image 143 and series 406, image 68 among others. Multilevel degenerative changes of the cervical spine, contributing to variable degrees of neural f oraminal narrowing. Sequelae of anterior plating at C4-5. IMPRESSION: No significant flow abnormality of the neck vessels is identified. 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
[2022-07-13] MEDS ORDERED: AZITHROMYCIN 250 MG TAB ONE (14:41)
[2022-07-13] MEDS ORDERED: CEFTRIAXONE 1000 MG/VIAL ONE (14:41)
[2022-07-13] MEDS ORDERED: NA CHLORIDE 0.9% 50 ML ONE (14:42)
--- NOTE | 2022-07-13 14:46 | P.HP ---
Patient History Date of Service: 07/13/22 Primary Care Provider: Dr. Lambert Allergies levofloxacin [From Levaquin] Allergy (Verified 02/16/16 15:31) Hives/Rash codeine [Codeine] Adverse Reaction (Intermediate, Verified 09/16/15 03:29) Itching INFLUENZA VIRUS VACCINES Allergy (Uncoded 03/03/17 12:11) Unknown Home Medications: Tamsulosin [Flomax*] 0.4 mg PO DAILY cap 03/26/18 Metoprolol Tartrate [Lopressor] 25 mg PO SEECOM 30 Days #90 tab 10/25/21 Apixaban [Eliquis] 5 mg PO BID 07/13/22 Baclofen 10 mg PO 07/13/22 Duloxetine HCl 30 mg PO DAILY 07/13/22 Finasteride [Proscar*] 5 mg PO DAILY 07/13/22 Gabapentin [Neurontin*] 600 mg PO TID 07/13/22 Rosuvastatin Calcium 20 mg PO BEDTIME 07/13/22 - Past Medical/Surgical History Diabetic: No -: Hx of Guillain [place] -: Coronary artery disease -: Neck pain -: CHF? -: CHRONIC BACK PAIN -: VERTEBRAL COMPRESSION -: HTN -: HLD -: Stents placed in his heart -: neck surgery -: both shoulder surgery -: back surgery 2018 -: cataract surgery cesar Psychosocial/ Personal History: Pt lives at home with his - Family History Father -: Stroke Mother -: Lung disease Notes: osteoporosis Brother -: Heart disease, Lung disease - Social History Alcohol use: No CD- Drugs: No Caffeine use: Yes Physical Examination - Studies Laboratory Data (last 24 hrs) 07/13/22 11:37: WBC 9.80, Hgb 11.6 L, Hct 35.3 L, Plt Count 316 07/13/22 11:37: Sodium 134 L, Potassium 4.7, BUN 25 H, Creatinine 1.50 H, Glucose 129 H, Magnesium 1.4 L, Total Bilirubin 0.8, AST 32, ALT 28, Alkaline Phosphatase 99 Assessment and Plan - Advance Directives Does patient have a Living Will: No Does patient have a Durable POA for Healthcare: No
--- NOTE | 2022-07-13 15:13 | EDPHYS ---
Physician Documentation [facility] Name: Ranulfo Chao Age: 86 yrs Sex: Male : 1935 Arrival Date: 07/13/2022 Time: 11:13 Bed 5 Private MD: Gildardo Lambert ED Physician Dennis Tovar HPI: 07/13 15:13 This 86 yrs old Male presents to ER via Wheelchair with complaints of Dizziness, kdr Confusion. 15:14 Patient's reports that he has been dizzy and confused since last Friday. She kdr indicated that Dr. Boucher had ordered an MRI but that was not going to be done for another 5 days or more. Since that was not going to happen, she decided bring the patient to the ER. On initial presentation the patient is somnolent but arouses with mild to moderate agitation. Patient otherwise appears to be stable and not requiring emergent intervention. Vital signs are initially stable.. Onset: The symptoms/episode began/occurred gradually, 3 day(s) ago. Severity of symptoms: At their worst the symptoms were mild moderate just prior to arrival, in the emergency department the symptoms are unchanged. The patient has not experienced similar symptoms in the past. The patient has not recently seen a physician. 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 - Social history:: Smoking status: Patient denies any tobacco usage or history of. ROS: 15:14 Constitutional: Negative for fever, chills, and weight loss, Eyes: Negative for injury, kdr pain, redness, and discharge, ENT: Negative for injury, pain, and discharge, Neck: Negative for injury, pain, and swelling, Cardiovascular: Negative for chest pain, palpitations, and edema, Respiratory: Negative for shortness of breath, cough, wheezing, and pleuritic chest pain, Abdomen/GI: Negative for abdominal pain, nausea, vomiting, diarrhea, and constipation, Back: Negative for injury and pain, : Negative for injury, bleeding, discharge, and swelling, MS/Extremity: Negative for injury and deformity, Skin: Negative for injury, rash, and discoloration, Psych: Negative for depression, anxiety, suicide ideation, homicidal ideation, and hallucinations, Allergy/Immunology: Negative for hives, rash, and allergies, Endocrine: Negative for neck swelling, polydipsia, polyuria, polyphagia, and marked weight changes, Hematologic/Lymphatic: Negative for swollen nodes, abnormal bleeding, and unusual bruising. 15:14 Neuro: Positive for altered mental status, dizziness, seizure activity, weakness, Negative for syncope, near syncope. Exam: 15:14 Constitutional: This is a well developed, well nourished patient who is awake, alert, kdr and in no acute distress. Head/Face: Normocephalic, atraumatic. Eyes: Pupils equal round and reactive to light, extra-ocular motions intact. Lids and lashes normal. Conjunctiva and sclera are non-icteric and not injected. Cornea within normal limits. Periorbital areas with no swelling, redness, or edema. ENT: Nares patent. No nasal discharge, no septal abnormalities noted. Tympanic membranes are normal and external auditory canals are clear. Oropharynx with no redness, swelling, or masses, exudates, or evidence of obstruction, uvula midline. Mucous membranes moist. Neck: Trachea midline, no thyromegaly or masses palpated, and no cervical lymphadenopathy. Supple, full range of motion without nuchal rigidity, or vertebral point tenderness. No Meningismus. Vital Signs: 11:34 BP 115 / 67; Pulse 68; Resp 18; Temp 98.4(O); Pulse Ox 95% on R/A; Weight 68.04 kg; ss Height 5 ft. 6 in. ; Pain 0/10; 12:43 BP 126 / 58; Pulse 63; Resp 15; Pulse Ox 98% on R/A; hb 13:21 BP 124 / 73; Pulse 73; Resp 18; Pulse Ox 95% on R/A; hb 11:34 Body Mass Index 24.21 (68.04 kg, 167.64 cm) ss 11:34 Pain Scale: Adult ss MDM: 15:12 Patient medically screened. kdr 15:14 Data reviewed: vital signs, nurses notes, lab test result(s), radiologic studies. kdr 07/13 11:27 Order name: Basic Metabolic Panel; Complete Time: 13:42 kdr 07/13 11:27 Order name: CBC with Diff; Complete Time: 13:42 kdr 07/13 11:27 Order name: LFT's; Complete Time: 13:42 kdr 07/13 11:27 Order name: Magnesium; Complete Time: 13:42 kdr 07/13 11:27 Order name: NT PRO-BNP; Complete Time: 13:42 kdr 07/13 11:27 Order name: Troponin HS; Complete Time: 13:42 kdr 07/13 15:18 Order name: Lactate w/ 2H reflex if indic. EDMS 07/13 15:18 Order name: Blood Culture EDMS 07/13 15:18 Order name: Blood Culture EDMS 07/13 15:30 Order name: CBC with Automated Diff EDMS 07/13 15:30 Order name: CBC with Automated Diff EDMS 07/13 15:30 Order name: Comprehensive Metabolic Panel EDMS 07/13 15:30 Order name: Comprehensive Metabolic Panel EDMS 07/13 15:32 Order name: Thyroid Stimulating Hormone EDMS 07/13 15:32 Order name: Urinalysis w/ reflexes EDMS 07/13 15:32 Order name: Magnesium EDMS 07/13 15:32 Order name: Magnesium EDMS 07/13 15:32 Order name: Phosphorus EDMS 07/13 15:32 Order name: Phosphorus EDMS 07/13 15:34 Order name: ABG Arterial Blood Gas EDMS 07/13 15:34 Order name: Ammonia EDMS 07/13 15:34 Order name: Vitamin B12 Level EDMS 07/13 11:27 Order name: XRAY Chest (1 view); Complete Time: 13:42 kdr 07/13 11:27 Order name: CT Head Brain wo Cont; Complete Time: 13:42 kdr 07/13 12:08 Order name: CT Head Angio; Complete Time: 13:42 kdr 07/13 12:08 Order name: CT Neck Angio; Complete Time: 13:42 kdr 07/13 15:36 Order name: Brain Wo Cont [facility] 07/13 15:36 Order name: Brain Wo Cont [facility] 07/13 11:27 Order name: EKG; Complete Time: 11:27 kdr 07/13 15:30 Order name: CONS Physician Consult [facility] 07/13 15:30 Order name: Heart Healthy [facility] 07/13 15:37 Order name: Physical Therapy Consult [facility] 07/13 11:27 Order name: Cardiac monitoring; Complete Time: 11:39 kdr 07/13 11:27 Order name: EKG - Nurse/Tech; Complete Time: 12:29 kdr 07/13 11:27 Order name: IV Saline Lock; Complete Time: 11:39 kdr 07/13 11:27 Order name: Labs collected and sent; Complete Time: 11:39 kdr 07/13 11:27 Order name: O2 Per Protocol; Complete Time: 11:39 kdr 07/13 11:27 Order name: O2 Sat Monitoring; Complete Time: 11:39 kdr Administered Medications: 14:44 Drug: Rocephin - Rocephin (cefTRIAXone) IVPB 1 grams Route: IVPB; Infused Over: 30 hb mins; Site: right antecubital; 14:51 Follow up: IV Status: Completed infusion; IV Intake: 50ml hb 15:49 Follow up: Response: No adverse reaction hb 14:44 Drug: AZITHromycin PO 500 mg Route: PO; hb 15:32 Follow up: Response: No adverse reaction hb Disposition Summary: 07/13/22 15:12 Hospitalization Ordered Hospitalization Status: Inpatient Admission kdr Provider: Mohinder Rodriguez Location: Telemetry/MedSurg (Inpatient) kdr Condition: Fair kdr Problem: new kdr Symptoms: have improved kdr Bed/Room Type: Standard kdr Room Assignment: 431(07/13/22 15:41) dw Diagnosis - Altered mental status, unspecified kdr - Pneumonia, unspecified organism kdr - Weakness kdr Forms: - Medication Reconciliation Form kdr - SBAR form kdr Signatures: Dispatcher [employer] Yessica Beasley RN RN dw Rittger, Kevin, MD MD kdr Lauren Barrett RN RN ss Baxter, Heather, RN RN hb Corrections: (The following items were deleted from the chart) 15:41 15:12 kdr dw
--- NOTE | 2022-07-13 15:13 | ER ---
Nurse's Notes [facility] Name: Ranulfo Chao Age: 86 yrs Sex: Male : 1935 Arrival Date: 07/13/2022 Time: 11:13 Bed 5 Private MD: Gildardo Lambert Diagnosis: Altered mental status, unspecified;Pneumonia, unspecified organism;Weakness Presentation: 07/13 11:34 Chief complaint: Spouse and/or significant other states: Intermittent dizziness and ss confusion that has been ongoing since Friday. reports that Dr. Boucher wrote for an MRI, but central scheduling couldn't get him in for 5 days and told them to come to the ER if they were concerned. Coronavirus screen: Client denies travel out of the [place] in the last 14 days. Ebola Screen: Patient denies exposure to infectious person. Patient denies travel to an Ebola-affected area in the 21 days before illness onset. Initial Sepsis Screen: Does the patient meet any 2 criteria? No. Patient's initial sepsis screen is negative. Does the patient have a suspected source of infection? No. Patient's initial sepsis screen is negative. Risk Assessment: Do you want to hurt yourself or someone else? Patient reports no desire to harm self or others. Onset of symptoms was July 10, 2022. 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 - Social history:: Smoking status: Patient denies any tobacco usage or history of. Screenin:39 [facility] ED Fall Risk Assessment (Adult) Score/Fall Risk Level 0 - 2 = Low Risk hb Oriented to surroundings, Maintained a safe environment. Abuse screen: Denies threats or abuse. Denies injuries from another. Nutritional screening: No deficits noted. Tuberculosis screening: No symptoms or risk factors identified. Assessment: 11:39 General: Appears in no apparent distress. Behavior is calm, cooperative. Pain: Denies hb pain. Neuro: Level of Consciousness is awake, alert, obeys commands, confused, Oriented to person. Cardiovascular: Patient's skin is warm and dry. Rhythm is regular. Respiratory: Respiratory effort is even, unlabored, Respiratory pattern is regular, symmetrical. GI: No signs and/or symptoms were reported involving the gastrointestinal system. : No signs and/or symptoms were reported regarding the genitourinary system. EENT: No signs and/or symptoms were reported regarding the EENT system. Derm: Skin is pink, warm \T\ dry. Musculoskeletal: No signs and/or symptoms reported regarding the musculoskeletal system. 12:43 Reassessment: Patient appears in no apparent distress at this time. No changes from hb previously documented assessment. Patient and/or family updated on plan of care and expected duration. Pain level reassessed. 13:21 Reassessment: Patient appears in no apparent distress at this time. No changes from hb previously documented assessment. Patient and/or family updated on plan of care and expected duration. Pain level reassessed. 13:49 Reassessment: Assisted patient to restroom VIA wheelchair. Pt states he was unable to ss have a BM. states that patient had small BM. Linens and brief changed as patient voided x 1. Pt now back in bed, side rails up x2, remains at bedside. 14:47 Reassessment: Patient appears in no apparent distress at this time. No changes from hb previously documented assessment. 15:43 Reassessment: Patient appears in no apparent distress at this time. No changes from hb previously documented assessment. Patient and/or family updated on plan of care and expected duration. Pain level reassessed. Vital Signs: 11:34 BP 115 / 67; Pulse 68; Resp 18; Temp 98.4(O); Pulse Ox 95% on R/A; Weight 68.04 kg; ss Height 5 ft. 6 in. ; Pain 0/10; 12:43 BP 126 / 58; Pulse 63; Resp 15; Pulse Ox 98% on R/A; hb 13:21 BP 124 / 73; Pulse 73; Resp 18; Pulse Ox 95% on R/A; hb 11:34 Body Mass Index 24.21 (68.04 kg, 167.64 cm) ss 11:34 Pain Scale: Adult ss ED Course: 11:20 Patient arrived in ED. mr 11:20 Gildardo Lambert MD is Private Physician. mr 11:26 Dennis Tovar MD is Attending Physician. kdr 11:37 Triage completed. ss 11:37 Arm band placed on right wrist. ss 11:37 Inserted saline lock: 20 gauge in right antecubital area, using aseptic technique. hb Blood collected. 11:39 Patient has correct armband on for positive identification. Client placed on continuous hb cardiac and pulse oximetry monitoring. NIBP monitoring applied. 11:39 Basic Metabolic Panel Sent. hb 11:39 CBC with Diff Sent. hb 11:39 LFT's Sent. hb 11:39 Magnesium Sent. hb 11:39 NT PRO-BNP Sent. hb 11:39 Troponin HS Sent. hb 11:48 XRAY Chest (1 view) In Process Unspecified. EDMS 11:49 Millicent Salcedo, RN is Primary Nurse. hb 11:51 CT Head Brain wo Cont In Process Unspecified. EDMS 12:39 CT Head Angio In Process Unspecified. EDMS 12:39 CT Neck Angio In Process Unspecified. EDMS 15:12 Mohinder Rodriguez MD is Hospitalizing Provider. kdr 15:49 No provider procedures requiring assistance completed. Patient did not have IV access hb during this emergency room visit. Administered Medications: 14:44 Drug: Rocephin - Rocephin (cefTRIAXone) IVPB 1 grams Route: IVPB; Infused Over: 30 hb mins; Site: right antecubital; 14:51 Follow up: IV Status: Completed infusion; IV Intake: 50ml hb 15:49 Follow up: Response: No adverse reaction hb 14:44 Drug: AZITHromycin PO 500 mg Route: PO; hb 15:32 Follow up: Response: No adverse reaction hb Medication: 11:39 VIS not applicable for this client. hb Intake: 14:51 IV: 50ml; Total: 50ml. hb Outcome: 15:12 Decision to Hospitalize by Provider. kdr 15:49 Admitted to Tele family with patient. hb 15:49 Condition: stable 15:49 Instructed on the need for admit, Demonstrated understanding of Spouse verbalized understanding 16:10 Patient left the ED. ll1 Signatures: Dispatcher [employer] EDMS Dennis Tovar MD MD kdr Rivera, Porsha mr Lauren Barrett RN RN Millicent Salcedo RN RN Dallas Sorensen RN RN 1
--- NOTE | 2022-07-13 15:14 | P.HP ---
Certification for Inpatient Patient admitted to: Inpatient With expected LOS: >2 Midnights Patient will require the following post-hospital care: None Practitioner: I am a practitioner with admitting privileges, knowledge of patient current condition, hospital course, and medical plan of care. Services: Services provided to patient in accordance with Admission requirements found in Title 42 Section 412.3 of the Code of Federal Regulations Patient History Date of Service: 07/13/22 Primary Care Provider: Dr. Lambert Reason for admission: Altered Mental Status History of Present Illness: Service was provided via video visit/Tele-Medicine. For that reason, no physical examination was performed. Mr. 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 He is quite confused on interview. He is alert and oriented x 1 to self only. History is provided by his , Ms. Marina Chao. She reports that, on 07/10/2022, he woke up from sleep around 03:00 AM with confusion, dizziness, and recurrent falls. She denies any urinary incontinence. She reports that, since this time, his confusion has been getting worse. They contacted his neurologist, Dr. Boucher, who recommended an MRI, but this had not been scheduled. Further history is limited, but her his , she has not noted any fevers, chills, headaches, syncope, shortness of breath, wheezing, cough, nausea/vomiting, or diarrhea. He was brought in to the Emergency Department for further evaluation. Upon presentation, his vital signs were stable. His laboratory studies were notable for a creatinine of 1.50 and a magnesium of 1.4. Troponin x 1 was 26.9. EKG was without STEMI criteria. His chest x-ray revealed, "hazy right basilar airspace opacities, concerning for early pneumonia." His CT head revealed, "no evidence of an acute intracranial process." CT head angiogram revealed, "no evidence of large vessel occlusion. Focal moderate atherosclerotic stenosis of the proximal left P2 segment. No other Flow-limiting stenosis." CT neck angiogram revealed, "no significant flow abnormality of the neck vessels is identified. Small saccular aneurysm or infundibulum arising from the distal right V2 segment." In the Emergency Department, he was given ceftriaxone and azithromycin. He was admitted to the General Internal Medicine Service under Dr. Herrera for further evaluation. Allergies levofloxacin [From Levaquin] Allergy (Verified 02/16/16 15:31) Hives/Rash codeine [Codeine] Adverse Reaction (Intermediate, Verified 09/16/15 03:29) Itching INFLUENZA VIRUS VACCINES Allergy (Uncoded 03/03/17 12:11) Unknown Home medications list reviewed: Yes Home Medications: Tamsulosin [Flomax*] 0.4 mg PO DAILY cap 03/26/18 Metoprolol Tartrate [Lopressor] 25 mg PO SEECOM 30 Days #90 tab 10/25/21 Apixaban [Eliquis] 5 mg PO BID 07/13/22 Baclofen 10 mg PO 07/13/22 Duloxetine HCl 30 mg PO DAILY 07/13/22 Finasteride [Proscar*] 5 mg PO DAILY 07/13/22 Gabapentin [Neurontin*] 600 mg PO TID 07/13/22 Rosuvastatin Calcium 20 mg PO BEDTIME 07/13/22 - Past Medical/Surgical History Diabetic: No -: Hx of Guillain [place] -: Coronary artery disease -: Neck pain -: Atrial Fibrillation -: CHRONIC BACK PAIN -: VERTEBRAL COMPRESSION -: HTN -: HLD -: BPH -: Stents placed in his heart -: neck surgery -: both shoulder surgery -: back surgery 2018 -: cataract surgery cesar Psychosocial/ Personal History: Pt lives at home with his - Family History Father -: Stroke Mother -: Lung disease Notes: osteoporosis Brother -: Heart disease, Lung disease - Social History Smoking Status: Former smoker Alcohol use: No CD- Drugs: No Caffeine use: Yes Review of Systems is unable to be obtained Physical Examination - Vital Signs Temperature: 98.4 F Blood Pressure: 124/73 Pulse: 73 Respirations: 18 Pulse Ox (%): 95 (room air) - Physical Exam General: Alert, In no apparent distress, Oriented x1 (to self) Respiratory: Other (no apparent shortness of breath. 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 Focal moderate atherosclerotic stenosis of the proximal left P2 segment. No other Flow- limiting stenosis." - CT neck angiogram = "no significant flow abnormality of the neck vessels is identified. Small saccular aneurysm or infundibulum arising from the distal right V2 segment." - Medication review = at home, he takes gabapentin, baclofen, duloxetine, and diphenhydramine, which may all contribute to confusion - Management plan: - Admit to Medicine - Consult Neurology - recommendations appreciated - Continue ceftriaxone + azithromycin - Hold home gabapentin, baclofen, duloxetine, diphenhydramine - Requested MRI brain - Serial neurologic checks - Low threshold for lumbar puncture # Right-Sided Community Acquired Pneumonia - Evaluation thus far: - Does not meet sepsis criteria - Procalcitonin = pending - VBG = pending - Lactate + blood cultures = pending - Chest x-ray = "hazy right basilar airspace opacities, concerning for early pneumonia." - Management plant: - Consulted Respiratory Therapy - Supplemental oxygen to maintain SpO2 > 92% - Ceftriaxone 1 g IV q24hr - Azithromycin 500 mg IV q24hr - Encouraged incentive spirometry # KDIGO Stage I Acute Kidney Injury - Creatinine = 1.50 (baseline creatinine 0.9-1.0) - Urinalysis = pending - Started gentle hydration with Normal Saline @ 75 mL/hr - Monitor creatinine and urine output - If worsening, obtain renal ultrasound - Renally dose medications # Deconditioning with Recurrent Falls - Consulted PT # Coronary Artery Disease s/p PCI x 4 # Hypertension # Hyperlipidemia Denies any chest pain, palpitations, or shortness of breath. - EKG without STEMI criteria - Troponin x 1 = 26.9 - Continue home metoprolol, rosuvastatin - Started daily baby aspirin - If renal function improves and blood pressure can tolerate, consider SUSAN-I/ARB # Chronic Atrial Fibrillation - Continue home metoprolol, apixaban # Benign Prostatic Hyperplasia - Continue home tamsulosin, finasteride # Hypomagnesemia - Replace electrolytes as needed Mohinder Rodriguez M.D. Discharge Plan: Home Plan to discharge in: Greater than 2 days - Advance Directives Does patient have a Living Will: No Does patient have a Durable POA for Healthcare: No
[2022-07-13] MEDS ORDERED: NA CHLORIDE 0.9% 1,000 ML IV SCH (16:00)
[2022-07-13] MEDS ORDERED: Magnesium Sulfate 2gm IVPB 2 G/50 ML BAG IV ONE (16:00)
[2022-07-13 16:04] LABS: Blood Gas Oxyhemoglobin 56.3 % (94-97); Blood O2 Saturation 57.7 % (92-98.5)
[2022-07-13] MEDS: METOPROLOL TAR 25 MG TAB PO SCH (20:30)
[2022-07-13] MEDS: APIXABAN 5 MG TABLET PO SCH (20:30)
[2022-07-13] MEDS: ROSUVASTATIN 10 MG TAB PO SCH (20:30)
[2022-07-14] MEDS: HALOPERIDOL LACT 5 MG/ML INJ IV PRN ×2 (00:48→04:21)
[2022-07-14 04:49] LABS: Absolute Lymphocytes (CBC) 2.1 K/uL (0.7-4.9); Hematocrit 36.4 % (39.6-49.0); Lymphocytes % 21.9 % (15.3-44.8); MCV 84.1 fL (80-100); MPV 8.5 fL (7.6-11.3); RBC Red Blood Cell Count 4.32 M/uL (4.33-5.43)
[2022-07-14 05:08] LABS: Albumin 3.4 g/dL (3.4-5.0); Bilirubin Total 0.7 mg/dL (0.2-1.0); Magnesium 2.1 mg/dL (1.6-2.4); Phosphorus 3.8 mg/dL (2.5-4.9); Potassium 4.1 mEq/L (3.5-5.1); Protein, Total 7.1 g/dL (6.4-8.2)
[2022-07-14] MEDS ORDERED: ZIPRASIDONE MESYLA 20 MG/VIAL IM ONE (05:09)
[2022-07-14] MEDS ORDERED: WATER FOR INJ,STERILE 10 ML IM PRN (05:09)
[2022-07-14 05:28] LABS: Renal Epithelial <5 /HPF (None Seen); Specific Gravity 1.025 (1.005-1.030); Urine Bacteria None Seen /HPF (<20); Urine Bilirubin NEGATIVE (Negative); Urine Blood 1+ (Negative); Urine Clarity Clear (Clear); Urine Color Light-Yellow (Yellow); Urine Glucose NEGATIVE (Negative); Urine Protein NEGATIVE (Negative); Urine Urobilinogen Normal (Normal); Urine WBC Clump Rare /HPF (None Seen); Urine pH 5.5 (5.0-7.0)
[2022-07-14] MEDS: FINASTERIDE 5 MG TAB PO SCH (09:00)
[2022-07-14] MEDS: APIXABAN 5 MG TABLET PO SCH ×2 (09:00→19:06)
[2022-07-14] MEDS: TAMSULOSIN 0.4 MG SR CAP PO SCH (09:00)
[2022-07-14] MEDS: ASPIRIN 81 MG CHEWABLE TABLET PO SCH (09:00)
[2022-07-14] MEDS: METOPROLOL TAR 50 MG TAB PO SCH (09:00)
[2022-07-14] MEDS: AZITHROMYCIN IV 500 MG in NA CHLORIDE 0.9% 250 ML IVPB SCH (09:13)
[2022-07-14] MEDS: CEFTRIAXONE 1,000 MG in NA CHLORIDE 0.9% 50 ML IVPB SCH (09:13)
--- NOTE | 2022-07-14 14:03 | P.PN ---
Subjective Date of Service: 07/14/22 Primary Care Provider: Dr. Lambert Chief Complaint: Altered Mental Status Patient sleeping and not agitated during my interaction. Nursing staff report agitation overnight. Physical Examination - Vital Signs Temperature: 97.8 F Blood Pressure: 142/76 Pulse: 113 Respirations: 16 Pulse Ox (%): 90 - Physical Exam General: In no apparent distress, Confused HEENT: PERRLA, Mucous membr. 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 Focal moderate atherosclerotic stenosis of the proximal left P2 segment. No other Flow-limiting stenosis." - CT neck angiogram = "no significant flow abnormality of the neck vessels is identified. Small saccular aneurysm or infundibulum arising from the distal right V2 segment." - Medication review = at home, he takes gabapentin, baclofen, duloxetine, and diphenhydramine, which may all contribute to confusion - Management plan: -Neurology consulted - IV ceftriaxone + azithromycin - Holding home gabapentin, baclofen, duloxetine, diphenhydramine - MRI brain ordered - Serial neurologic checks -Lumbar puncture pending MRI result.: # Right-Sided Community Acquired Pneumonia - Evaluation thus far: - Does not meet sepsis criteria - Procalcitonin = pending - VBG = pending - Lactate + blood cultures = pending - Chest x-ray = "hazy right basilar airspace opacities, concerning for early pneumonia." - Management plant: - Consulted Respiratory Therapy - Supplemental oxygen to maintain SpO2 > 92% - IV Ceftriaxone and Zithromax KDIGO Stage I Acute Kidney Injury - Creatinine = 1.50 (baseline creatinine 0.9-1.0) - Urinalysis = pyuria -Continue hydration with Normal Saline @ 75 mL/hr - Monitor creatinine and urine output - If worsening, obtain renal ultrasound - Renally dose medications Deconditioning with Recurrent Falls - PT to eval Coronary Artery Disease s/p PCI x 4 Hypertension Hyperlipidemia - Stable - Continue home metoprolol, rosuvastatin - daily baby aspirin Chronic Atrial Fibrillation - Continue home metoprolol, apixaban Benign Prostatic Hyperplasia - Continue home tamsulosin, finasteride DVT prophylaxis: Geraldine
[2022-07-14] MEDS: ROSUVASTATIN 10 MG TAB PO SCH (19:06)
[2022-07-14] MEDS: METOPROLOL TAR 25 MG TAB PO SCH (19:07)
[2022-07-15] MEDS: HALOPERIDOL LACT 5 MG/ML INJ IV PRN (01:05)
[2022-07-15 05:24] VITALS: BMI 24.0
[2022-07-15] MEDS: TAMSULOSIN 0.4 MG SR CAP PO SCH (07:06)
[2022-07-15] MEDS: FINASTERIDE 5 MG TAB PO SCH (07:06)
[2022-07-15] MEDS: METOPROLOL TAR 50 MG TAB PO SCH (07:06)
[2022-07-15] MEDS: APIXABAN 5 MG TABLET PO SCH ×2 (07:06→20:45)
[2022-07-15] MEDS: ASPIRIN 81 MG CHEWABLE TABLET PO SCH (07:06)
[2022-07-15] MEDS: CEFTRIAXONE 1,000 MG in NA CHLORIDE 0.9% 50 ML IVPB SCH (08:55)
[2022-07-15] MEDS: AZITHROMYCIN IV 500 MG in NA CHLORIDE 0.9% 250 ML IVPB SCH (08:56)
[2022-07-15] MEDS ORDERED: MAGNESIUM SULFATE 1 gm IVPB 1 GM/100 ML BAG IV ONE (09:00)
--- NOTE | 2022-07-15 09:16 | RAD REPORT ---
EXAM DESCRIPTION: MRI - Brain Wo Cont - 07/15/2022 8:57 am CLINICAL HISTORY: AMS Headache, drowsiness COMPARISON: Head angio dated 07/13/2022 TECHNIQUE: Multi-sequence, multiplanar MR imaging of the brain was performed without contrast. FINDINGS: No intracranial hemorrhage, hydrocephalus or extra-axial fluid collections.Moderate conflu ent T2/FLAIR hyperintensity in the periventricular and deep white matter is present compatible with c hronic microvascular ischemic changes. No edema or shift of midline structures. No findings to suspec t brain mass. DWI is negative for acute CVA. Midline structures are normally formed. Mild mucosal thickening left maxillary antrum. Paranasal sinuses and mastoids are otherwise clear. IMPRESSION: Negative for acute CVA or other acute intracranial process.
[2022-07-15] MEDS ORDERED: METOPROLOL TARTRATE 5 MG/5 ML INJ IV PRN (10:01)
--- NOTE | 2022-07-15 12:43 | P.PN ---
Subjective Date of Service: 07/15/22 Primary Care Provider: Dr. Lambert Chief Complaint: Altered Mental Status Patient is still confused but more awake today He was given Haldol last night for agitation. Nursing staff report difficulty with swallowing. Physical Examination - Vital Signs Temperature: 98.6 F Blood Pressure: 124/66 Pulse: 108 Respirations: 16 Pulse Ox (%): 90 - Physical Exam General: Confused, Delirious HEENT: Mucous membr. 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 Focal moderate atherosclerotic stenosis of the proximal left P2 segment. No other Flow-limiting stenosis." - CT neck angiogram = "no significant flow abnormality of the neck vessels is identified. Small saccular aneurysm or infundibulum arising from the distal right V2 segment." - Medication review = at home, he takes gabapentin, baclofen, duloxetine, and diphenhydramine, which may all contribute to confusion - Management plan: -Neurology consulted. Patient to be seen by Dr. Boucher. - IV ceftriaxone + azithromycin - Holding home gabapentin, baclofen, duloxetine, diphenhydramine - MRI brain: No acute disease -Lumbar puncture pending Dr. Boucher's evaluation. # Right-Sided Community Acquired Pneumonia - Evaluation thus far: - Does not meet sepsis criteria - Procalcitonin = 0.12 - blood cultures = no growth to date - Chest x-ray = "hazy right basilar airspace opacities, concerning for early pneumonia." -Concern for aspiration pneumonia - Management plant: - Supplemental oxygen to maintain SpO2 > 92% -Continue IV Ceftriaxone and Zithromax -Speech therapy consult to confirm aspiration KDIGO Stage I Acute Kidney Injury - Creatinine = 1.50 (baseline creatinine 0.9-1.0) - Urinalysis = pyuria -Continue hydration with Normal Saline @ 75 mL/hr -CASANDRA resolved Deconditioning with Recurrent Falls - PT to eval Coronary Artery Disease s/p PCI x 4 Hypertension Hyperlipidemia - Stable - Continue home metoprolol, rosuvastatin once cleared by speech - daily baby aspirin Chronic Atrial Fibrillation - Continue home metoprolol, apixaban Benign Prostatic Hyperplasia - Continue home tamsulosin, finasteride DVT prophylaxis: Eliquis
[2022-07-15] MEDS: ROSUVASTATIN 10 MG TAB PO SCH (20:45)
[2022-07-15] MEDS: METOPROLOL TAR 25 MG TAB PO SCH (20:46)
[2022-07-15] MEDS: ENSURE ENLIVE 237 ML CAN PO SCH (20:48)
[2022-07-16 06:46] LABS: Absolute Lymphocytes (CBC) 2.3 K/uL (0.7-4.9); Lymphocytes % 21.3 % (15.3-44.8); MCV 83.5 fL (80-100); MPV 8.1 fL (7.6-11.3); RBC Red Blood Cell Count 4.55 M/uL (4.33-5.43)
[2022-07-16 07:11] LABS: Potassium 3.8 mEq/L (3.5-5.1)
[2022-07-16 07:16] LABS: Magnesium 1.6 mg/dL (1.6-2.4)
--- NOTE | 2022-07-16 07:26 | P.PN ---
Date of Service: 07/16/22 Subjective: remains confused at times; improving, more alert per at bedside reports he has been having trouble urinating since this hospitalization Feels very weak; increasing tolerance ambulating with PT ROS: 10 point ROS as noted above, otherwise negative Physical Exam: GEN: Confused, hard of hearing, pleasant / NAD HEENT: Normal conjunctiva, sclera anicteric CV: Irregularly irregular rate and rhythm, no edema Pulm: Nonlabored respirations on room air ABD: Soft, nontender, nondistended Neuro: Normal speech, normal affect Mccarthy vitals reviewed Problem List: Acute Toxic Metabolic Encephalopathy suspect due to Pneumonia 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 Benson consulted, felt no evidence of pneumonia, dc'd antibiotics pt reported urinary symptoms; resumed rocephin, f/u urine culture CT head - "no evidence of an acute intracranial process." CT head angiogram - "no evidence of large vessel occlusion. Focal moderate ath erosclerotic stenosis of the proximal left P2 segment. No other Flow-limiting stenosis." CT neck angiogram - "no significant flow abnormality of the neck vessels is identified. Small saccular aneurysm or infundibulum arising from the distal right V2 segment." MRI brain - No acute disease Neurology consulted. Patient to be seen by Dr. Boucher restart home gabapentin at lower dose Holding home baclofen, duloxetine, diphenhydramine on admission; restart as appropriate Restarted gabapentin 07/16 Right-Sided lung opacity Community Acquired Pneumonia concern for aspiration pneumonia; started on IV antibiotics pulm consulted - dc'd antibiotics 07/16 continue rocephin for UTI Speech therapy consulted KDIGO Stage I Acute Kidney Injury Creatinine - 1.50 (baseline creatinine 0.9-1.0) resolved Urinalysis - pyuria Deconditioning with Recurrent Falls PT to eval Coronary Artery Disease s/p PCI x 4 Hypertension Hyperlipidemia Stable Continue home metoprolol, rosuvastatin once cleared by speech daily baby aspirin Chronic Atrial Fibrillation Continue home metoprolol, apixaban Benign Prostatic Hyperplasia Continue home tamsulosin, finasteride VTE: Eliquis Code: Full Dispo: Home 1-2 days
--- NOTE | 2022-07-16 08:00 | EKG ---
Test Date: 2022-07-13 Test Time: 12:12:02 Mononitrotoluene Operator: HB MEASUREMENT RESULTS: Intervals: Rate: 61 [place]: 212 QRSD: 94 QT: 448 QTc: 450 [place]: P: 57 [place]: 212 QRS: 5 T: 42 INTERPRETIVE STATEMENTS: Sinus rhythm with 1st degree AV block Low voltage QRS Borderline ECG Compared to ECG 10/24/2021 23:20:45 Myocardial infarct finding no longer present Electronically Signed On 07-16-22 07:53:58 CDT by Patel Cook
[2022-07-16] MEDS: CEFTRIAXONE 1,000 MG in NA CHLORIDE 0.9% 50 ML IVPB SCH (09:06)
[2022-07-16] MEDS: METOPROLOL TAR 50 MG TAB PO SCH (09:06)
[2022-07-16] MEDS: ENSURE ENLIVE 237 ML CAN PO SCH ×2 (09:07→21:00)
[2022-07-16] MEDS: GABAPENTIN 100 MG CAP PO SCH ×3 (09:07→20:41)
[2022-07-16] MEDS: ASPIRIN 81 MG CHEWABLE TABLET PO SCH (09:07)
[2022-07-16] MEDS: APIXABAN 5 MG TABLET PO SCH ×2 (09:07→20:41)
[2022-07-16] MEDS: FINASTERIDE 5 MG TAB PO SCH (09:07)
[2022-07-16] MEDS: TAMSULOSIN 0.4 MG SR CAP PO SCH (09:07)
--- NOTE | 2022-07-16 12:20 | P.CNS ---
Date of Consult: 07/16/22 Primary Care Provider: Dr. Lambert Chief Complaint: Possible pneumonia History of Present Illness: Patient is 86 years of age with a history of Guillain-Vo syndrome has difficulty ambulating frequent falls. With dizziness altered mental status seen by Dr. Boucher Neurologist patient is very hard of hearing history obtained from his was present at the bedside diagnosed with Guillain-Vo in 2005 he has complaining of feeling dizzy worse with standing up apparently this weekend he was experiencing altered mental status never smoker history of significant coronary artery disease with 4 stent placements still seeing a urologist patient needs considerable help with ambulation uses a wheelchair no prior history of smoking or alcohol abuse denies any pulmonary complaints Allergies levofloxacin [From Levaquin] Allergy (Verified 07/13/22 16:23) Hives/Rash codeine [Codeine] Adverse Reaction (Intermediate, Verified 07/13/22 16:) Itching INFLUENZA VIRUS VACCINES Allergy (Uncoded 07/13/22 16:23) Unknown Home Medications: Tamsulosin [Flomax*] 0.4 mg PO DAILY cap 03/26/18 Metoprolol Tartrate [Lopressor] 25 mg PO SEECOM 30 Days #90 tab 10/25/21 Apixaban [Eliquis] 2.5 mg PO BID 07/13/22 Baclofen 10 mg PO BID 07/13/22 Duloxetine HCl 30 mg PO DAILY 07/13/22 Finasteride [Proscar*] 5 mg PO DAILY 07/13/22 Gabapentin 1,200 mg PO TID 07/13/22 Rosuvastatin Calcium 20 mg PO BEDTIME 07/13/22 - Past Medical/Surgical History Diabetic: No -: Hx of Guillain [place] -: Coronary artery disease -: Neck pain -: Atrial Fibrillation -: CHRONIC BACK PAIN -: VERTEBRAL COMPRESSION -: HTN -: HLD -: BPH -: Stents placed in his heart -: neck surgery -: both shoulder surgery -: back surgery 2018 -: cataract surgery cesar Psychosocial/ Personal History: Pt lives at home with his - Family History Father Medical History: Stroke Mother Medical History: Lung disease Notes: osteoporosis Brother Medical History: Heart disease, Lung disease - Social History Smoking Status: Current every day smoker Alcohol use: No CD- Drugs: No Caffeine use: Yes Place of Residence: Home Review of Systems 10-point ROS is otherwise unremarkable General: Weakness Physical Examination Temp Pulse Resp BP Pulse Ox 97.9 F 116 H 18 138/78 94 07/16/22 08:00 07/16/22 08:00 07/16/22 08:00 07/16/22 08:00 07/16/22 08:00 General: Alert, In no apparent distress, Oriented x3 Neck: Supple Respiratory: Clear to auscultation bilaterally Cardiovascular: No edema, Regular rate/rhythm, Abnormal S3 Gastrointestinal: Normal bowel sounds, Soft and benign, Non-distended - Problems (1) Altered mental state Onset Date: 06/09/15 Current Visit: No Status: Acute Plan: Patient is 86 years of age with a history of Guillain-Vo syndrome he is got weakness of his legs frequent falls denies any pulmonary complaints chest x-ray no evidence of pneumonia very hard of hearing Labs reviewed unremarkable does have a history of A-fib coronary artery disease not smoke or drink doubt if he has pneumonia DC all antibiotics physical therapy evaluation ambulate with assistance awaiting to see his neurologist stable for discharge Qualifiers: Altered mental status type: delirium Qualified Code(s): R41.0 - Disorientation, unspecified (2) Fall Onset Date: 06/09/15 Current Visit: No Status: Acute
[2022-07-16] MEDS: ROSUVASTATIN 10 MG TAB PO SCH (20:40)
[2022-07-16] MEDS: METOPROLOL TAR 25 MG TAB PO SCH (20:41)
--- NOTE | 2022-07-17 00:22 | CON ---
Date of Consultation: 07/16/2022 Reason For Consultation: Confusion. History Of Present Illness: An 86-year-old gentleman, well known to myself. 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 He has had lumbar spondylosis and decompressive surgery, and general decline in h is functional status over the last several years. His is highly involved in his care, and he lopez s actually been stable. He gets confused when he takes too much medication. The called the off ice last week, said he was more confused. We recommended she bring him to his primary care for stand geoffrey workup of problem. UA and chest x-ray are better. She said she could not get in to his primary care up in [place] in a timely fashion, was concerned he may be having stroke-like symptoms. We ord ered a brain MRI and recommended if symptoms worsen and come to the emergency department. While symp toms did worsen, MRI was stuck in [facility], so could not be performed, so she brought him to the emergency department. Workup there revealed a procalcitonin slightly elevated at 0.12 and pyuria with questio nable pneumonia. He was confused and delirious, so he was admitted to the hospital. Sedating medica tions were held. Problems did not really improve, seen by Pulmonary today. He does not have pulmona ry complaints, although he does have some slight hypoxia. Antibiotics for possible pneumonia discont inued. He was found to have AFib. He has a history of paroxysmal AFib, not on systemic anticoagulat ion. Brain MRI unfortunately, no evidence for stroke. 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 The gabapentin has been restarted. His mental status is improving. Consultation was requested. Past Medical History: Polyneuropathy and lumbar spondylosis as alluded to, AFib, hypertension, and B PH. He has had issues with urinary retention in the past. Medications: Normally Flomax, Lopressor, questionably Eliquis, gabapentin significant dose at 600 t. i.d., Cymbalta 30, baclofen 10 b.i.d. Allergies: LEVAQUIN AND CODEINE. GIVEN THE HISTORY GUILLAIN-BARRE, INFLUENZA VACCINE IS ON HIS DIMITRIS RGY LIST WELL. Social History: The patient needs assistance with activities of daily living, but he still mows the lawn. Review of Systems: General: Chronically ill. Eyes: Negative. Ears, nose, Throat: Negative. Cardiovascular: Atrial fibrillation, hypertension. Pulmonary: Questionable pneumonia. GI: Negative. : BPH. History of urinary retention, polyuria. Neurologic: As noted. Psychiatric: Negative. Endocrine: Negative. Hematologic: Negative. Physical Examination: Vital Signs: 97.1, 111, 18 respirations, sats 93, blood pressure 114/78. General: He is awake. He is conversant. He knows me. He knows he is in the hospital, but he think s he is in [place]. Neurologic: Pupils reactive. Redundant lid tissue. Incomplete residual bilateral seventh nerve pal sies. Ocular motion full. Muñoz full. Tongue midline. Soft palate elevates bilaterally. Extremi ty strength full. Sensation decreased distally. Knee jerks 2/4, otherwise trace. Toes downgoing. Gait not tested. Pertinent Laboratory Data: As alluded to. Impression: Delirium, improving. Plan: To administer IV thiamine. Restart the Cymbalta in the morning. I would not restart the bacl ofen unless we are forced to for pain control. Thank you for the consult. We will continue to follow with you. BENITA Voice ID: [id number] Report ID: [id number]
--- NOTE | 2022-07-17 07:34 | P.PN ---
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 Benson consulted, felt no evidence of pneumonia, dc'd antibiotics pt reported urinary symptoms; resumed rocephin Urine culture: Enterococcus Faecalis ID consulted levquin and pcn allergy noted; family and patient unsure on reaction penicillin - was >5 decades ago may need vanc vs possible unasyn Urology Consulted due to urinary retention s/p straight cath 07/16 evening lr placed 07/17 h/o BPH - on his home meds, tamsulosin/finasteride suspect retention secondary to UTI; denies prior issues CT head - "no evidence of an acute intracranial process." CT head angiogram - "no evidence of large vessel occlusion. Focal moderate atherosclerotic stenosis of the proximal left P2 segment. No other Flow-limiting stenosis." CT neck angiogram - "no significant flow abnormality of the neck vessels is identified. Small saccular aneurysm or infundibulum arising from the distal right V2 segment." MRI brain - No acute disease Neurology consulted. Patient to be seen by Dr. Boucher restart home gabapentin at lower dose Holding home baclofen, duloxetine, diphenhydramine on admission; restart as appropriate Restarted gabapentin 07/16 Right-Sided lung opacity; Community Acquired Pneumonia; ruled out initially some concern for aspiration pneumonia; started on IV antibiotics pulm consulted - dc'd antibiotics 07/16; does not suspect pneumonia Speech therapy consulted KDIGO Stage I Acute Kidney Injury Creatinine - 1.50 (baseline creatinine 0.9-1.0) resolved Urinalysis - pyuria Deconditioning with Recurrent Falls PT to eval Coronary Artery Disease s/p PCI x 4 Hypertension Hyperlipidemia Stable Continue home metoprolol, rosuvastatin once cleared by speech daily baby aspirin Chronic Atrial Fibrillation Continue home metoprolol, apixaban Benign Prostatic Hyperplasia Continue home tamsulosin, finasteride VTE: Eliquis Code: Full Dispo: Home ~2 days
[2022-07-17] MEDS: THIAMINE 200 MG/2 ML INJ IVP SCH (08:35)
[2022-07-17] MEDS: ASPIRIN 81 MG CHEWABLE TABLET PO SCH (08:35)
[2022-07-17] MEDS: FINASTERIDE 5 MG TAB PO SCH (08:36)
[2022-07-17] MEDS: DULOXETINE 30 MG CAP PO SCH (08:36)
[2022-07-17] MEDS: CEFTRIAXONE 1,000 MG in NA CHLORIDE 0.9% 50 ML IVPB SCH (08:36)
[2022-07-17] MEDS: GABAPENTIN 100 MG CAP PO SCH ×3 (08:36→20:19)
[2022-07-17] MEDS: APIXABAN 5 MG TABLET PO SCH ×2 (08:36→20:20)
[2022-07-17] MEDS: METOPROLOL TAR 50 MG TAB PO SCH (08:36)
[2022-07-17] MEDS: TAMSULOSIN 0.4 MG SR CAP PO SCH (08:36)
[2022-07-17] MEDS: ENSURE ENLIVE 237 ML CAN PO SCH ×2 (08:38→20:20)
[2022-07-17 08:42] LABS: Magnesium 1.5 mg/dL (1.6-2.4); Potassium 3.7 mEq/L (3.5-5.1)
[2022-07-17] MEDS ORDERED: Magnesium Sulfate 2gm IVPB 2 G/50 ML BAG IV ONE (09:00)
--- NOTE | 2022-07-17 10:03 | P.CNS ---
Date of Consult: 07/17/22 Reason for Consult: UTI Primary Care Provider: Dr. Lambert Chief Complaint: Possible pneumonia History of Present Illness: Patient is an 86 yo male with a past medical history of atrial fibrillation, CAD s/p PCI x4, hypertension, BPH and HLD who was brought to the ED by his for altered mental status. Patient was experiencing urinary frequency a few days prior to admission. Bladder scan revealed 500cc urine retention. Urine culture collected and patient was started on empiric Rocephin 07/13. Urine culture positive for Enterococcus faecalis and ID was consulted. Allergies levofloxacin [From Levaquin] Allergy (Verified 07/13/22 16:23) Hives/Rash codeine [Codeine] Adverse Reaction (Intermediate, Verified 07/13/22 16:) Itching INFLUENZA VIRUS VACCINES Allergy (Uncoded 07/13/22 16:23) Unknown Home medications list reviewed: Yes Home Medications: Tamsulosin [Flomax*] 0.4 mg PO DAILY cap 03/26/18 Metoprolol Tartrate [Lopressor] 25 mg PO SEECOM 30 Days #90 tab 10/25/21 Apixaban [Eliquis] 2.5 mg PO BID 07/13/22 Baclofen 10 mg PO BID 07/13/22 Duloxetine HCl 30 mg PO DAILY 07/13/22 Finasteride [Proscar*] 5 mg PO DAILY 07/13/22 Gabapentin 1,200 mg PO TID 07/13/22 Rosuvastatin Calcium 20 mg PO BEDTIME 07/13/22 - Past Medical/Surgical History Diabetic: No -: Hx of Guillain [place] -: Coronary artery disease -: Neck pain -: Atrial Fibrillation -: CHRONIC BACK PAIN -: VERTEBRAL COMPRESSION -: HTN -: HLD -: BPH -: Stents placed in his heart -: neck surgery -: both shoulder surgery -: back surgery 2018 -: cataract surgery cesar Psychosocial/ Personal History: Pt lives at home with his - Family History Father Medical History: Stroke Mother Medical History: Lung disease Notes: osteoporosis Brother Medical History: Heart disease, Lung disease - Social History Smoking Status: Former smoker Alcohol use: No CD- Drugs: No Caffeine use: Yes Place of Residence: Home Review of Systems 10-point ROS is otherwise unremarkable Genitourinary: Frequency, Retention, As per HPI Physical Examination Temp Pulse Resp BP Pulse Ox 98.0 F 98 H 16 110/57 L 90 L 07/17/22 08:00 07/17/22 08:00 07/17/22 08:00 07/17/22 08:00 07/17/22 08:00 General: Alert, In no apparent distress, Oriented x2 HEENT: Atraumatic, Normocephalic, Other (Hard of hearing, must speak loudly) Neck: Supple, JVD not distended Respiratory: Normal air movement, Diminished (bibasilar) Cardiovascular: No edema, Normal pulses Gastrointestinal: Normal bowel sounds, Soft and benign, Non-distended Musculoskeletal: No clubbing, No swelling Integumentary: No rashes, No breakdown Neurological: Normal speech, Normal tone, Normal affect Laboratory Data - Reviewed Microbiology Data - Reviewed Imagings Data: - Reviewed Conclusions/Impression: Problem List CAD s/p PCI x 4 Atrial Fibrillation, Chronic Hyperlipidemia Hx Guillan-[place] Syndrome in 2005 BPH Urinary Tract Infection * Allergies: Levofloxacin (hives), Codeine, Influenza Virus Vaccines * Urinary Tract Infection - Urine culture: Enterococcus faecalis - Reported urinary retention 500mL with traumatic straight cath insertion. Residual dried blood noted around meatus. Urology consulted on case. - Pt's reports he has a possible penicillin allergy although he has taken Augmentin before with no adverse effects or reactions.The only information the provided about a penicillin allergy is that that 60+ years ago the patient's mother reported he had a penicillin allergy but unknown what type of reaction. However patient has had multiple surgeries and and dental procedures in the past and on antibiotics with no allergic reaction except to Levaquin (hives). We started patient on a monitored dose of Unasyn; he reported itching 20 minutes into infusion; Unasyn was stopped and a dose of IV benadryl was administered with resolution of itching. E. faecalis sensitivity report and patient allergies limit the choices of antibiotics. Recommendations - Patient started on Vancomycin IV (07/17). Can be transitioned to Zyvox PO as tolerated. Continue supportive care and nutritional support as needed. ID will follow up and monitor patient closely. Case discussed with Sandra Ledesma
[2022-07-17] MEDS ORDERED: DIPHENHYDRAMINE 50 MG/ML VIAL IV PRN (13:36)
[2022-07-17] MEDS ORDERED: AMPICILLIN/SULBACT 3 GM in NA CHLORIDE 0.9% 100 ML IV SCH (14:00)
[2022-07-17] MEDS: VANCOMYCIN 1.25 GM in NA CHLORIDE 0.9% 250 ML IVPB SCH (14:44)
[2022-07-17] MEDS: ROSUVASTATIN 10 MG TAB PO SCH (20:19)
[2022-07-17] MEDS: METOPROLOL TAR 25 MG TAB PO SCH (20:20)
--- NOTE | 2022-07-17 20:26 | PN ---
Date of Progress Note: 07/17/2022 Reason: Delirium. Interval History: The patient is stable. Sensorium is essentially at baseline. He had urinary rete ntion and has a Mccarthy in place. Infectious Disease has been consulted to help manage the urinary tra ct infection. With regard to the gabapentin and Cymbalta, I would not change the dosing right now. I would not restart the baclofen. I just can see him came back in the office and if those medication s need to be adjusted, they can be. Physical Examination: Vital Signs: He is awake, alert. HEENT: Edentulous. Ocular motion full. Muñoz full. Neurologic: Strength full. Sensation decreased distally. Reflexes 1/4 at the knees. He is ambulat ory. Impression: Delirium, improving. Plan: No further neurologic intervention is required at this juncture. We will see him back in the office as scheduled. Thank you for the consult. BENITA Voice ID: [id number] Report ID: [id number]
--- NOTE | 2022-07-18 07:57 | P.PN ---
Date of Service: 07/18/22 Subjective: Feels like hes improving day by day seems to be more alert today, less confused only complaint is some pain/discomfort from catheter low UOP, with borderline BP ROS: 10 point ROS as noted above, otherwise negative Physical Exam: GEN: Confused, hard of hearing, pleasant / NAD HEENT: Normal conjunctiva, sclera anicteric CV: regular rate/rhythm, no edema Pulm: Nonlabored respirations on 2L NC ABD: Soft, nontender, nondistended Neuro: Normal speech, normal affect Lr vitals reviewed Problem List: UTI urinary retention Acute Toxic Metabolic Encephalopathy suspect due to UTI Blood cultures: No growth Urinalysis - pyuria started on rocephin / azithro empirically for pneumonia Dr. Benson consulted, felt no evidence of pneumonia, dc'd antibiotics pt reported urinary symptoms; resumed rocephin Urine culture: Enterococcus Faecalis ID consulted levquin and pcn allergy noted; family and patient unsure on reaction penicillin - was >5 decades ago trial of unasyn - pt developed itching throughout body, antibiotic dc'd, symptoms resolved Started vanc 07/17 switch to Zyvox PO upon discharge per ID Urology Consulted due to urinary retention s/p straight cath 07/16 evening lr placed 07/17 h/o BPH - on his home meds, tamsulosin/finasteride suspect retention secondary to UTI; denies prior issues urology recommends continue lr, f/u for voiding trial /eval in office as scheduled next week 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 Focal moderate atherosclerotic stenosis of the proximal left P2 segment. No other Flow-limiting stenosis." CT neck angiogram - "no significant flow abnormality of the neck vessels is identified. Small saccular aneurysm or infundibulum arising from the distal r ight V2 segment." MRI brain - No acute disease CXR 07/18 pending Neurology consulted. Patient to be seen by Dr. Boucher restart home gabapentin at lower dose Holding home baclofen, duloxetine, diphenhydramine on admission; restart as appropriate Restarted gabapentin 07/16 Right-Sided lung opacity; Community Acquired Pneumonia; ruled out initially some concern for aspiration pneumonia; started on IV antibiotics pulm consulted - dc'd antibiotics 07/16; does not suspect pneumonia Speech therapy consulted KDIGO Stage I Acute Kidney Injury Creatinine improved (baseline creatinine 0.9-1.0) resolved Deconditioning with Recurrent Falls PT consulted Coronary Artery Disease s/p PCI x 4 Hypertension Hyperlipidemia Stable Continue home metoprolol, rosuvastatin once cleared by speech daily baby aspirin Chronic Atrial Fibrillation Continue home metoprolol, apixaban Benign Prostatic Hyperplasia Continue home tamsulosin, finasteride VTE: Eliquis Code: Full Dispo: Home ~1-2 days
[2022-07-18] MEDS ORDERED: NA CHLORIDE 0.9% 500 ML IV SCH (08:00)
[2022-07-18] MEDS: ASPIRIN 81 MG CHEWABLE TABLET PO SCH (08:28)
[2022-07-18] MEDS: DULOXETINE 30 MG CAP PO SCH (08:28)
[2022-07-18] MEDS: FINASTERIDE 5 MG TAB PO SCH (08:28)
[2022-07-18] MEDS: APIXABAN 5 MG TABLET PO SCH ×2 (08:28→20:29)
[2022-07-18] MEDS: METOPROLOL TAR 50 MG TAB PO SCH (08:28)
[2022-07-18] MEDS: GABAPENTIN 100 MG CAP PO SCH ×3 (08:28→20:28)
[2022-07-18] MEDS: THIAMINE 200 MG/2 ML INJ IVP SCH (08:30)
[2022-07-18] MEDS: ENSURE ENLIVE 237 ML CAN PO SCH ×2 (08:30→20:29)
[2022-07-18 08:54] LABS: Absolute Lymphocytes (CBC) 2.7 K/uL (0.7-4.9); Hematocrit 40.6 % (39.6-49.0); Lymphocytes % 17.5 % (15.3-44.8); MCV 84.8 fL (80-100); MPV 8.3 fL (7.6-11.3); RBC Red Blood Cell Count 4.78 M/uL (4.33-5.43)
[2022-07-18 09:10] LABS: Magnesium 1.9 mg/dL (1.6-2.4); Potassium 3.9 mEq/L (3.5-5.1)
--- NOTE | 2022-07-18 11:21 | RAD REPORT ---
EXAM DESCRIPTION: RADChest Single View07/18/2022 10:39 am CLINICAL HISTORY: f/u opacity COMPARISON: Chest Single View dated 07/13/2022; Chest Single View dated 10/24/2021; Chest Single View d ated 03/23/2018; Chest Single View dated 04/24/2016 TECHNIQUE: Portable AP view of the chest. FINDINGS: The lungs are clear. No pneumothorax or effusion. The cardiomediastinal contours are unrem arkable. IMPRESSION: No acute cardiopulmonary process.
--- NOTE | 2022-07-18 12:32 | P.PN ---
Date of Service: 07/18/22 Chief complaint: AMS Subjective: No new changes Afebrile no acute events reported overnight. Patient sitting in chair, oriented x2. at bedside. Denies any complaints at this time. Physical Examination Temp Pulse Resp BP Pulse Ox 98.3 F 86 16 121/60 97 07/18/22 12:00 07/18/22 12:00 07/18/22 12:00 07/18/22 12:00 07/18/22 12:00 General: Alert, In no apparent distress, Oriented x2 HEENT: Atraumatic, Normocephalic, Other (Hard of hearing, must speak loudly) Neck: Supple, JVD not distended Respiratory: Normal air movement, Diminished (bibasilar) Cardiovascular: No edema, Normal pulses Gastrointestinal: Normal bowel sounds, Soft and benign, Non-distended Musculoskeletal: No clubbing, No swelling Integumentary: No rashes, No breakdown Neurological: Normal speech, Normal tone, Normal affect Urinary: Mccarthy catheter with natan colored urine noted Laboratory Data - Reviewed Microbiology Data - Reviewed Imagings Data: - Reviewed Conclusions/Impression: Problem List CAD s/p PCI x 4 Atrial Fibrillation, Chronic Hyperlipidemia 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 Residual dried blood noted around meatus. Urology consulted on case. - Mccarthy catheter placed 07/17. E. faecalis sensitivity report and patient allergies limit the choices of antibiotics. - On Vancomycin IV Recommendations - On Vancomycin IV (07/17). Transition to Zyvox PO upon discharge. Continue antibiotic x total 7-10 days duration. - Per , patient has follow up appointment scheduled with Urologist for next week - Continue supportive care and nutritional support as needed. ID will follow up and monitor patient closely. Case discussed with Sandra Ledesma
[2022-07-18] MEDS: VANCOMYCIN 1.25 GM in NA CHLORIDE 0.9% 250 ML IVPB SCH (14:55)
[2022-07-18] MEDS: TAMSULOSIN 0.4 MG SR CAP PO SCH (20:28)
[2022-07-18] MEDS: ROSUVASTATIN 10 MG TAB PO SCH (20:28)
[2022-07-18] MEDS: METOPROLOL TAR 25 MG TAB PO SCH (20:29)
[2022-07-19] MEDS: ACETAMINOPHEN 500 MG TAB PO PRN ×2 (03:18→13:53)
[2022-07-19 05:11] LABS: Absolute Lymphocytes (CBC) 2.1 K/uL (0.7-4.9); Hematocrit 36.9 % (39.6-49.0); Lymphocytes % 15.1 % (15.3-44.8); MCV 84.2 fL (80-100); MPV 8.9 fL (7.6-11.3); RBC Red Blood Cell Count 4.38 M/uL (4.33-5.43)
[2022-07-19 05:26] LABS: Magnesium 1.6 mg/dL (1.6-2.4); Potassium 3.8 mEq/L (3.5-5.1)
[2022-07-19] MEDS ORDERED: MAGNESIUM SULFATE 1 gm IVPB 1 GM/100 ML BAG IV ONE (06:05)
[2022-07-19] MEDS: DULOXETINE 30 MG CAP PO SCH (08:23)
[2022-07-19] MEDS: APIXABAN 5 MG TABLET PO SCH ×2 (08:23→20:48)
[2022-07-19] MEDS: FINASTERIDE 5 MG TAB PO SCH (08:23)
[2022-07-19] MEDS: GABAPENTIN 100 MG CAP PO SCH ×3 (08:24→20:48)
[2022-07-19] MEDS: ASPIRIN 81 MG CHEWABLE TABLET PO SCH (08:24)
[2022-07-19] MEDS: ENSURE ENLIVE 237 ML CAN PO SCH ×2 (08:25→20:48)
[2022-07-19] MEDS: THIAMINE 200 MG/2 ML INJ IVP SCH (08:25)
[2022-07-19] MEDS: METOPROLOL TAR 50 MG TAB PO SCH (08:25)
--- NOTE | 2022-07-19 12:35 | P.PN ---
Date of Service: 07/19/22 Subjective: Feels much weaker today, worsening for 2 days; states he feels like legs are just gonna give out slight pain in the neck, no other pain reported this afternoon less mobility with PT yesterday remains afebrile ROS: 10 point ROS as noted above, otherwise negative Physical Exam: GEN: hard of hearing, pleasant / NAD HEENT: Normal conjunctiva, sclera anicteric CV: regular rate/rhythm, no edema Pulm: Nonlabored respirations on 2L NC ABD: Soft, nontender, nondistended Neuro: Normal speech, normal affect Lr in place vitals reviewed Problem List: UTI urinary retention Acute Toxic Metabolic Encephalopathy suspect due to UTI Blood cultures: No growth Urinalysis - pyuria started on rocephin / azithro empirically for pneumonia Dr. Benson consulted, felt no evidence of pneumonia, dc'd antibiotics pt reported urinary symptoms; resumed rocephin Urine culture: Enterococcus Faecalis ID consulted levquin and pcn allergy noted; family and patient unsure on reaction penicillin - was >5 decades ago trial of unasyn - pt developed itching throughout body, antibiotic dc'd, symptoms resolved Started vanc 07/17 switch to Zyvox PO upon discharge per ID Urology Consulted due to urinary retention s/p straight cath 07/16 evening lr placed 07/17 h/o BPH - on his home meds, tamsulosin/finasteride suspect retention secondary to UTI; denies prior issues urology recommends continue lr, f/u for voiding trial /eval in office as scheduled next week 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 Focal moderate atherosclerotic stenosis of the proximal left P2 segment. No other Flow-limiting stenosis." CT neck angiogram - "no significant flow abnormality of the neck vessels is identified. Small saccular aneurysm or infundibulum arising from the distal right V2 segment." MRI brain - No acute disease CXR 07/18 pending Neurology consulted. Patient to be seen by Dr. Boucher restart home gabapentin at lower dose Holding home baclofen, duloxetine, diphenhydramine on admission; restart as appropriate Restarted gabapentin 5/9 Right-Sided lung opacity; Community Acquired Pneumonia; ruled out initially some concern for aspiration pneumonia; started on IV antibiotics pulm consulted - dc'd antibiotics 07/16; does not suspect pneumonia Speech therapy consulted KDIGO Stage I Acute Kidney Injury Creatinine improved (baseline creatinine 0.9-1.0) resolved Deconditioning with Recurrent Falls PT consulted Coronary Artery Disease s/p PCI x 4 Hypertension Hyperlipidemia Stable Continue home metoprolol, rosuvastatin once cleared by speech daily baby aspirin Chronic Atrial Fibrillation Continue home metoprolol, apixaban Benign Prostatic Hyperplasia Continue home tamsulosin, finasteride VTE: Eliquis Code: Full Dispo: inpatient rehab, ~24hrs
[2022-07-19] MEDS: VANCOMYCIN 1.5 GM in NA CHLORIDE 0.9% 500 ML IVPB SCH (15:01)
--- NOTE | 2022-07-19 16:25 | P.PN ---
Date of Service: 07/19/22 Chief complaint: AMS Subjective: No new changes. A&O x 2 at bedside. Afebrile. No complaints at this time. Physical Examination Temp Pulse Resp BP Pulse Ox 98.6 F 89 16 102/58 L 92 07/19/22 12:00 07/19/22 12:00 07/19/22 12:00 07/19/22 12:00 07/19/22 12:00 General: Alert, In no apparent distress, Oriented x2 HEENT: Atraumatic, Normocephalic, Other (Hard of hearing, must speak loudly) Neck: Supple, JVD not distended Respiratory: Normal air movement, Diminished (bibasilar) Cardiovascular: No edema, Normal pulses Gastrointestinal: Normal bowel sounds, Soft and benign, Non-distended Musculoskeletal: No clubbing, No swelling Integumentary: No rashes, No breakdown Neurological: Normal speech, Normal tone, Normal affect Urinary: Mccarthy catheter with natan colored urine noted Laboratory Data - Reviewed Microbiology Data - Reviewed Imagings Data: - Reviewed Assessment and Plan Problem List CAD s/p PCI x 4 Atrial Fibrillation, Chronic Hyperlipidemia 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 Residual dried blood noted around meatus. Urology consulted on case. - Mccarthy catheter placed 07/17. E. faecalis sensitivity report and patient allergies limit the choices of antibiotics. - On Vancomycin IV Recommendations - On Vancomycin IV (07/17). Transition to Zyvox PO upon discharge. Continue antibiotic x total 7-10 days total duration. - Per , Patient has follow up appointment with Urologist scheduled for Monday 07/24. - Continue supportive care and nutritional support as needed. ID will follow up and monitor patient closely. Case discussed with Sandra Ledesma
[2022-07-19] MEDS: ROSUVASTATIN 10 MG TAB PO SCH (20:47)
[2022-07-19] MEDS: TAMSULOSIN 0.4 MG SR CAP PO SCH (20:48)
[2022-07-19] MEDS: METOPROLOL TAR 25 MG TAB PO SCH (20:48)
[2022-07-20 04:35] LABS: Hematocrit 33.1 % (39.6-49.0); Lymphocytes % 14.5 % (15.3-44.8); MCV 84.2 fL (80-100); MPV 9.1 fL (7.6-11.3); RBC Red Blood Cell Count 3.92 M/uL (4.33-5.43)
[2022-07-20 04:42] LABS: Magnesium 1.8 mg/dL (1.6-2.4); Potassium 3.9 mEq/L (3.5-5.1)
[2022-07-20] MEDS ORDERED: MAGNESIUM SULFATE 1 gm IVPB 1 GM/100 ML BAG IV ONE (05:16)
--- NOTE | 2022-07-20 07:31 | P.PN ---
Date of Service: 07/20/22 Subjective: feels better today; slept better States strength might be slightly improved, hard for him to tell wbc increased, Na decreased denies any new problems/issues urine [employer] color states he hasn't eaten much but is drinking slightly more than he usually does at home ROS: 10 point ROS as noted above, otherwise negative Physical Exam: GEN: hard of hearing, pleasant / NAD HEENT: Normal conjunctiva, sclera anicteric CV: regular rate/rhythm, no edema Pulm: Nonlabored respirations on room air ABD: Soft, nontender, nondistended Neuro: Normal speech, normal affect Lr in place vitals reviewed Problem List: UTI Urinary retention Acute Toxic Metabolic Encephalopathy suspect due to UTI hyponatremia, mild Blood cultures: No growth Urinalysis - pyuria started on rocephin / azithro empirically for pneumonia Dr. Benson consulted, felt no evidence of pneumonia, dc'd antibiotics pt reported urinary symptoms; resumed rocephin Urine culture: Enterococcus Faecalis ID consulted levquin and pcn allergy noted; family and patient unsure on reaction penicillin - was >5 decades ago trial of unasyn - pt developed itching throughout body, antibiotic dc'd, symptoms resolved Started vanc 07/17 switch to Zyvox PO upon discharge per ID leukocytosis, unclear, possibly reactive, afebrile monitor does not seem to be having new/worse infection combined with hyponatremia, and increased subjective weakness; will closely monitor Urology Consulted due to urinary retention s/p straight cath 07/16 evening lr placed 07/17 h/o BPH - on his home meds, tamsulosin/finasteride suspect retention secondary to UTI; denies prior issues urology recommends continue lr, f/u for voiding trial /eval in office as scheduled next week Hyponatremia urine / labs ordered for further eval downtrending last 2 days nephrology consulted 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 Focal moderate a therosclerotic stenosis of the proximal left P2 segment. No other Flow-limiting stenosis." CT neck angiogram - "no significant flow abnormality of the neck vessels is identified. Small saccular aneurysm or infundibulum arising from the distal right V2 segment." MRI brain, CXR - both negative Neurology consulted. - Dr. Boucher restart home gabapentin at lower dose Holding home baclofen, duloxetine, diphenhydramine on admission; restart as appropriate Restarted gabapentin 07/16 Coronary Artery Disease s/p PCI x 4 Hypertension Hyperlipidemia Stable Continue home metoprolol, rosuvastatin daily 81mg aspirin Right-Sided lung opacity; Community Acquired Pneumonia; ruled out pulm consulted - dc'd antibiotics 07/16; does not suspect pneumonia KDIGO Stage I Acute Kidney Injury - resolved Deconditioning with Recurrent Falls - PT consulted - Pt. will always require assistance in mobility due to physical limitation & cognitive limitation per PT Chronic Atrial Fibrillation - Continue home metoprolol, apixaban Benign Prostatic Hyperplasia - Continue home tamsulosin, finasteride VTE: Eliquis Code: Full Dispo: inpatient rehab, ~1-2 days pending improved labs, improved strength
[2022-07-20] MEDS: ASPIRIN 81 MG CHEWABLE TABLET PO SCH (08:08)
[2022-07-20] MEDS: GABAPENTIN 100 MG CAP PO SCH ×3 (08:08→20:53)
[2022-07-20] MEDS: DULOXETINE 30 MG CAP PO SCH (08:08)
[2022-07-20] MEDS: APIXABAN 5 MG TABLET PO SCH ×2 (08:08→20:54)
[2022-07-20] MEDS: METOPROLOL TAR 50 MG TAB PO SCH (08:08)
[2022-07-20] MEDS: FINASTERIDE 5 MG TAB PO SCH (08:08)
[2022-07-20] MEDS: ENSURE ENLIVE 237 ML CAN PO SCH ×2 (08:09→20:54)
[2022-07-20] MEDS: THIAMINE 200 MG/2 ML INJ IVP SCH (08:09)
[2022-07-20] MEDS: VANCOMYCIN 1.5 GM in NA CHLORIDE 0.9% 500 ML IVPB SCH (15:51)
[2022-07-20] MEDS ORDERED: SODIUM CHLORIDE 1 GM TAB PO ONE (19:49)
--- NOTE | 2022-07-20 20:09 | CON ---
Date of Consultation: 07/20/2022 Chief Complaint: Hyponatremia. History Of Present Illness: The patient is an 86-year-old man who was admitted to the hospital on 2022. He has multiple medical problems including history of Guillain-Ava syndrome, coronary a rtery disease status post PCI x4, atrial fibrillation, hypertension, benign prostatic hyperplasia, di fficulty with voiding, hyperlipidemia, and bladder outlet obstruction recently. He had Mccarthy placed during this admission due to incomplete voiding and difficulty with urination. He, on admission appe ared to be confused and he was only oriented x1 to himself. I saw him with his at the bedside. The patient has multiple medical problems including peripheral neuropathy and difficulty with voidin g. Nephrology consultation is requested for hyponatremia. Sodium level over last several days was f luctuating today it is 128, on July 19 was 130, on July 18 was 132, July 17 was 136, July 16 was 133, was 135, and July 13 was 134. Glucose level over the last several days. DICTATION ENDS HERE EB/MODL Voice ID: [id number] Report ID: [id number]
--- NOTE | 2022-07-20 20:30 | CON ---
Date of Consultation: 07/20/2022 Chief Complaint: Hyponatremia. History Of Present Illness: The patient came to the hospital because of generalized weakness. Nephr ology consultation today requested for hyponatremia. The patient over last several days was found to have borderline hyponatremia. Sodium level was over 130, although today sodium level is 128 and Nep hrology consultation was requested. The patient is an 86-year-old man with past medical history sign ificant for Guillain-Climax syndrome, coronary artery disease status post PCI x4, atrial fibrillation, hypertension, benign prostatic hyperplasia, difficulty with urination, and bladder outlet obstructio n. Of note, the patient had a Mccarthy catheter placed during this admission because of difficulty void ing. The patient remains somewhat confused. He is alert and oriented x1 and history was provided by his who was at the bedside. The patient was confused prior to this admission and was complaini ng of dizziness and has history of recurrent falls. He was to have workup with his neurologist, alth ough they decided to come to emergency room. The patient did not have any fever, chills, headache, s yncope, shortness of breath, or wheezing. Upon admission his creatinine level was 1.5, magnesium 1.4 , and troponin was 26.8. EKG was without ST elevation myocardial infarction criteria. Chest x-ray r evealed hazy right basilar airspace opacities concerning for early pneumonia. The patient has been s een by Infectious Disease during this admission. CT angiogram revealed no evidence of large vessel o cclusion, focal moderate atherosclerotic stenosis, and proximal left P2 segment was present. CT neck angiogram revealed no significant abnormalities of neck vessels. Past Medical History: Guillain-Climax, coronary artery disease, neck pain, atrial fibrillation, chron ic back pain, vertebral compression hypertension, hyperlipidemia, BPH, stent placement for coronary a rtery disease, neck surgery, shoulder surgery, back surgery, and cataract surgery. Family History: Father with stroke. Mother with lung disease and osteoporosis. Brother with heart disease and lung disease. Social History: Former smoker. Denies alcohol or illicit drugs. Physical Examination: General: The patient is awake and oriented x1. Eyes: Anicteric sclerae. EOMI. Ears, Nose, Mouth, And Throat: Oral mucosa moist. No pallor. Neck: Supple. No bruits. Lungs: Diminished breath sounds at bases. Heart: S1, S2. Abdomen: Soft, benign, nontender. Extremities: Slight edema. Neurologic: Moving extremities. Cranial nerves intact. Psychiatric: Normal affect. Laboratory Data: Sodium 128, potassium 3.9, chloride 96, CO2 26, BUN 29, creatinine 0.88, glucose 13 1, calcium 8.9, and magnesium 1.8. Assessment And Plan: Hyponatremia, hyposmolar state. The patient has multiple medical problems incl uding recent history of accelerated bladder outlet obstruction. The patient required Mccarthy catheter. Urine culture was positive for enterococcus and ID was consulted. The patient is on antibiotics. The patient has also possible pneumonia, which may be a factor for worsening of the hyponatremia due to high ADH state. Plan is to check urine osmolality, serum osmolality, and uric acid. Continue p.o . fluid restriction and start sodium chloride tablet. Monitor fluid balance. The patient was seen b y his neurologist for chronic confusion and at that time, sodium level was 130, less likely hyponatre serafin is factor for confusion. The patient is taking Cymbalta, which likely may aggravate hyponatremia . I will defer to Neurology for management of the patient's peripheral neuropathy. Apparently, his sensorium is essentially at baseline according to Neurology note. He had urinary retention and Mccarthy catheter is placed. I recommend to continue Mccarthy catheter. Bladder outlet obstruction and urinary retention likely was aggravating hyponatremia in this particular case. TERRY/MILENA Voice ID: [id number] Report ID: [id number]
[2022-07-20] MEDS: ROSUVASTATIN 10 MG TAB PO SCH (20:53)
[2022-07-20] MEDS: METOPROLOL TAR 25 MG TAB PO SCH (20:54)
[2022-07-20] MEDS: TAMSULOSIN 0.4 MG SR CAP PO SCH (20:54)
[2022-07-20 20:59] LABS: Potassium 3.8 mEq/L (3.5-5.1)
[2022-07-21] MEDS: ACETAMINOPHEN 500 MG TAB PO PRN ×2 (05:49→10:17)
--- NOTE | 2022-07-21 07:44 | RAD REPORT ---
EXAM DESCRIPTION: US - Renal Ultrasound-Complete - 07/21/2022 6:17 am CLINICAL HISTORY: ckd Flank pain COMPARISON: <Comparisons> FINDINGS: Both kidneys are normal in size, shape and echotexture. The right kidney measures 10.1 x 5.2 x 4.6 cm. No hydronephrosis, focal mass or perinephric fluid. The left kidney measures 9.2 x 5.3 x 5.3 cm. No hydronephrosis, focal mass or perinephric fluid. The urinary bladder is incompletely distended without gross abnormality seen. IMPRESSION: Unremarkable renal sonogram.
--- NOTE | 2022-07-21 07:44 | P.PN ---
Date of Service: 07/21/22 Subjective: sleeping well overnight; slightly less alert, decreased mentation this morning remains very weak, needing help getting up and ambulating; LUE weaker than RUE pt states he cant roll over on his own in bed anymore; he was able to do this a few days ago low grade temp this morning, now improved ROS: 10 point ROS as noted above, otherwise negative Physical Exam: GEN: hard of hearing, pleasant / NAD HEENT: Normal conjunctiva, sclera anicteric CV: regular rate/rhythm, no edema Pulm: Nonlabored respirations on 2L NC ABD: Soft, nontender, nondistended Neuro: Normal speech, normal affect Lr in place vitals reviewed Problem List: UTI Urinary retention Acute Toxic Metabolic Encephalopathy suspect due to UTI hyponatremia, mild Blood cultures: No growth Urinalysis - pyuria culture: enterococcus initially on rocephin/azithro for possible pneumonia ruled out, Dr. Benson consulted ID consulted, tried unasyn, however pt had allergy on 07/17, switched to vanc with plan to switch to Zyvox PO upon discharge per ID leukocytosis, unclear, possibly reactive, afebrile monitor does not seem to be having new/worse infection combined with hyponatremia, and increased subjective weakness; will closely monitor tylenol for pain may be masking a fever check CRP, procal review of systems has been otherwise negative repeat UA Urology Consulted due to urinary retention s/p straight cath 07/16 evening lr placed 07/17 h/o BPH - on his home meds, tamsulosin/finasteride suspect retention secondary to UTI; denies prior issues urology recommends continue lr, f/u for voiding trial /eval in office as scheduled next week Renal u/s 07/21 - unremarkable Hyponatremia urine / labs ordered for further eval downtrending last ~2 days nephrology consulted salt tabs initiated unclear etiology Moderate Stenosis of Left P2 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 Focal moderate atherosclerotic stenosis of the proximal left P2 segment. No other Flow-limiting stenosis." CT neck angiogram - "no significant flow abnormality of the neck vessels is identified. Small saccular aneurysm or infundibulum arising from the distal right V2 segment." MRI brain, CXR - both negative Neurology consulted. - Dr. Boucher restart home gabapentin at lower dose Holding home baclofen, duloxetine, diphenhydramine on admission; restarted some, holding baclofen Restarted gabapentin 07/16 decreased dose 07/21, due to slight increase in somnolence on my exam 07/21, pt with intact str in bilateral upper/lower extremities; however patient and report progressive weakness over last ~3 days concern for recurrent GBS - progressive weakness, tachycardia, urinary retention, hyponatremia however all can be explained by other issues occurring at one time r/o other causes Message sent to Dr. Boucher holding off on transfer to inpatient rehab at this time Coronary Artery Disease s/p PCI x 4 Hypertension Hyperlipidemia Stable Continue home metoprolol, rosuvastatin daily 81mg aspirin Right-Sided lung opacity; Community Acquired Pneumonia; ruled out pulm consulted - dc'd antibiotics 07/16; does not suspect pneumonia KDIGO Stage I Acute Kidney Injury - resolved Deconditioning with Recurrent Falls - PT consulted - Pt. will always require assistance in mobility due to physical limitation & cognitive limitation per PT Chronic Atrial Fibrillation - Continue home metoprolol, apixaban Benign Prostatic Hyperplasia - Continue home tamsulosin, finasteride VTE: Eliquis Code: Full Dispo: inpatient rehab, ~2 days pending improved labs, improved strength
[2022-07-21 08:22] LABS: Potassium 3.8 mEq/L (3.5-5.1); Thyroid Stimulating Hormone 3.7 uIU/mL (0.358-3.740)
[2022-07-21] MEDS: APIXABAN 5 MG TABLET PO SCH ×2 (08:51→22:05)
[2022-07-21] MEDS: DULOXETINE 30 MG CAP PO SCH (08:51)
[2022-07-21] MEDS: ASPIRIN 81 MG CHEWABLE TABLET PO SCH (08:52)
[2022-07-21] MEDS: FINASTERIDE 5 MG TAB PO SCH (08:52)
[2022-07-21] MEDS: THIAMINE 200 MG/2 ML INJ IVP SCH (08:53)
[2022-07-21] MEDS: ENSURE ENLIVE 237 ML CAN PO SCH ×2 (08:54→21:00)
[2022-07-21] MEDS: GABAPENTIN 100 MG CAP PO SCH ×3 (08:54→21:58)
[2022-07-21] MEDS: METOPROLOL TAR 50 MG TAB PO SCH (08:58)
[2022-07-21 09:26] LABS: Hematocrit 33.8 % (39.6-49.0); Lymphocytes % 6.9 % (15.3-44.8); MCV 82.9 fL (80-100); MPV 8.6 fL (7.6-11.3); RBC Red Blood Cell Count 4.07 M/uL (4.33-5.43)
[2022-07-21] MEDS: SODIUM CHLORIDE 1 GM TAB PO SCH ×2 (12:53→21:56)
[2022-07-21 13:10] LABS: Specific Gravity 1.029 (1.005-1.030); Urine Bacteria >50 /HPF (<20); Urine Bilirubin NEGATIVE (Negative); Urine Blood 3+ (OVER) (Negative); Urine Clarity Turbid (Clear); Urine Color Light-Orange (Yellow); Urine Glucose 1+ (Negative); Urine Mucus Slight /HPF (None Seen); Urine Protein 1+ (Negative); Urine RBC >50 /HPF (None Seen); Urine Urobilinogen Normal (Normal); Urine pH 5.5 (5.0-7.0)
[2022-07-21 13:23] LABS: Potassium 3.7 mEq/L (3.5-5.1)
[2022-07-21] MEDS: VANCOMYCIN 1.5 GM in NA CHLORIDE 0.9% 500 ML IVPB SCH (15:23)
[2022-07-21] MEDS: TAMSULOSIN 0.4 MG SR CAP PO SCH (21:57)
[2022-07-21] MEDS: ROSUVASTATIN 10 MG TAB PO SCH (21:58)
[2022-07-21] MEDS: METOPROLOL TAR 25 MG TAB PO SCH (22:03)
[2022-07-21] MEDS ORDERED: SODIUM CHLORIDE 1 GM TAB PO ONE (22:04)
[2022-07-21] MEDS: NA CHLORIDE 0.9% 1,000 ML IV SCH (22:39)
[2022-07-21 23:24] LABS: Potassium 3.7 mEq/L (3.5-5.1)
[2022-07-21] MEDS ORDERED: POTASSIUM 25 MEQ EFFERV TAB PO ONE (23:52)
[2022-07-21] MEDS ORDERED: UREA 15 GM POWDER PACKET PO ONE (23:54)
--- NOTE | 2022-07-22 02:37 | PN ---
Date of Progress Note: 07/21/2022 Chief Complaint: Hyponatremia, hyposmolar state. History Of Present Illness: Patient was started on sodium chloride tablets for hyponatremia. He has a Mccarthy catheter and the catheter was recently placed to treat obstructive uropathy bladder outlet o bstruction. Patient came to the hospital because of generalized weakness. Nephrology consultation w as requested yesterday for worsening of the hyponatremia. Patient over last several days was found t o have borderline hyponatremia. Sodium level was over 130, although yesterday, sodium level was 128 and it declined to 127. The patient received sodium chloride tablets for hyponatremia. He has histo ry of Guillain-barre syndrome, coronary artery disease status post PCI for atrial fibrillation, hyper tension, benign prostatic hyperplasia, difficulty with urination, bladder outlet obstruction, urinary retention. Patient has recently placed Mccarthy catheter because of difficulty voiding and urinary ret ention. He is lethargic, although he is responsive to questions. Denies chest pain, palpitation. Physical Examination: Lungs: Clear to auscultation bilaterally. Heart: S1, S2. Abdomen: Soft. Extremities: No edema. Impression And Plan: Sodium 127. Patient has hyponatremia and sodium level stabilized on 127 today. Plan is to continue sodium chloride tablets for hyponatremia. Avoid HCTZ. I discussed with the natacha tobar's at the bedside to avoid excessive p.o. fluid intake. Patient may need IV normal saline. Patient was seen by neurologist for chronic confusion and at that time when sodium level was 130, l ess likely hyponatremia was a factor for confusion. The patient was taking Cymbalta, which likely ma y aggravate hyponatremia. I was referred for neurological management of the patient, peripheral neur opathy. His sensorium according to Neurology is essentially at baseline. Patient had urinary retent ion and Mccarthy catheter was placed. Continue Flomax. Continue Mccarthy catheter. Bladder outlet obstru ction and urinary retention, likely was aggravating hyponatremia with this particular case as urinary retention may cause elevated ADH response and this was likely the culprit of hyponatremia. The hany ent will limit p.o. fluid intake and plan is to continue sodium chloride tablets and re-evaluate lisha harris work. EB/MODL Voice ID: [id number] Report ID: [id number]
[2022-07-22 06:59] LABS: Absolute Lymphocytes (CBC) 1.6 K/uL (0.7-4.9); Lymphocytes % 11.9 % (15.3-44.8); MCV 83.5 fL (80-100); MPV 9.2 fL (7.6-11.3); RBC Red Blood Cell Count 4.19 M/uL (4.33-5.43)
--- NOTE | 2022-07-22 07:08 | P.PN ---
Date of Service: 07/22/22 Subjective: complains of left elbow pain; bruised, wont let anyone touch it Still feeling very weak; feels like strength has slightly improved, needing less help Mentation improving, afebrile ROS: 10 point ROS as noted above, otherwise negative Physical Exam: GEN: hard of hearing, pleasant / NAD HEENT: Normal conjunctiva, sclera anicteric CV: regular rate/rhythm, no edema Pulm: Nonlabored respirations on 2L NC ABD: Soft, nontender, nondistended MSK: L elbow, swelling, slight erythema, tender Neuro: Normal speech, normal affect Lr in place vitals reviewed Problem List: UTI Urinary retention Acute Toxic Metabolic Encephalopathy suspect due to UTI hyponatremia, mild Blood cultures 07/13: No growth Urinalysis - pyuria culture: enterococcus initially on rocephin/azithro for possible pneumonia ruled out, Dr. Benson consulted ID consulted, tried unasyn, however pt had allergy on 07/17, switched to vanc since switch to vanc, patient seems to be worsening; concern for VRE repeat UA 07/21 - +bacteria, +yeast, +WBC ID switched to zyvox on 07/23 added diflucan repeat blood culture 07/22: pending repeat urine culture 07/21: pending C-reactive, procalcitonin up trending 07/22 Urology Consulted due to urinary retention s/p straight cath 07/16 evening lr placed 07/17 h/o BPH - on his home meds, tamsulosin/finasteride suspect retention secondary to UTI; denies prior issues urology recommends continue lr, f/u for voiding trial /eval in office as scheduled next week Renal u/s 07/21 - unremarkable messaged on 07/22 - updated Dr. 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 Focal moderate atherosclerotic stenosis of the proximal left P2 segment. No other Flow-limiting stenosis." CT neck angiogram - "no significant flow abnormality of the neck vessels is identified. Small saccular aneurysm or infundibulum arising from the distal right V2 segment." MRI brain, CXR - both negative Neurology consulted. - Dr. Boucher restart home gabapentin at lower dose Holding home baclofen, duloxetine, diphenhydramine on admission; restarted some, holding baclofen Restarted gabapentin 07/16 decreased dose 07/21, due to slight increase in somnolence on my exam 07/21, pt with intact str in bilateral upper/lower extremities; however patient and report progressive weakness over last ~3 days concern for recurrent GBS - progressive weakness, tachycardia, urinary retention, hyponatremia however all can be explained by other issues occurring at one time r/o other causes Message sent to Dr. Boucher holding off on transfer to inpatient rehab at this time Coronary Artery Disease s/p PCI x 4 Hypertension Hyperlipidemia Stable Continue home metoprolol, rosuvastatin daily 81mg aspirin Deconditioning with Recurrent Falls PT consulted - Pt. will always require assistance in mobility due to physical limitation & cognitive limitation per PT Xray elbow 07/22 - no acute fracture; Radial head spurring. Spurring at the coronoid process. KDIGO Stage I Acute Kidney Injury - resolved Chronic Atrial Fibrillation - Continue home metoprolol, apixaban Benign Prostatic Hyperplasia - Continue home tamsulosin, finasteride VTE: Eliquis Code: Full Dispo: inpatient rehab, ~several days pending improved labs, improved strength f/u cultures
[2022-07-22 07:27] LABS: Magnesium 1.6 mg/dL (1.6-2.4); Phosphorus 2.4 mg/dL (2.5-4.9)
[2022-07-22] MEDS: POTASS/SODIUM PHOSPHATE 1 PKT POWD.PACK PO SCH ×3 (08:01→10:44)
[2022-07-22] MEDS: ASPIRIN 81 MG CHEWABLE TABLET PO SCH (08:02)
[2022-07-22] MEDS: DULOXETINE 30 MG CAP PO SCH (08:02)
[2022-07-22] MEDS: APIXABAN 5 MG TABLET PO SCH ×2 (08:02→21:31)
[2022-07-22] MEDS: THIAMINE 200 MG/2 ML INJ IVP SCH (08:02)
[2022-07-22] MEDS: GABAPENTIN 100 MG CAP PO SCH ×3 (08:02→21:31)
[2022-07-22] MEDS: METOPROLOL TAR 50 MG TAB PO SCH (08:02)
[2022-07-22] MEDS: FINASTERIDE 5 MG TAB PO SCH (08:02)
[2022-07-22] MEDS: ENSURE ENLIVE 237 ML CAN PO SCH ×2 (08:41→21:00)
[2022-07-22] MEDS: FLUCONAZOLE 200mg IVPB 200 MG/100 ML BAG IV SCH (08:41)
[2022-07-22] MEDS: ACETAMINOPHEN 500 MG TAB PO SCH ×2 (08:45→21:31)
[2022-07-22] MEDS ORDERED: MAGNESIUM SULFATE 1 gm IVPB 1 GM/100 ML BAG IV ONE (09:00)
--- NOTE | 2022-07-22 10:13 | RAD REPORT ---
EXAM DESCRIPTION: RAD - Elbow Left 3 View - 07/22/2022 10:05 am CLINICAL HISTORY: pain, swelling, fall, medial COMPARISON: No comparisons FINDINGS/IMPRESSION: No acute fracture. No malalignment. Radial head spurring. Spurring at the coron oid process.
--- NOTE | 2022-07-22 12:10 | P.PN ---
Date of Service: 07/22/22 Chief complaint: AMS Subjective: Patient resting in bed. A&O x 2 No complaints at this time. Afebrile. No acute events reported overnight. Physical Examination Temp Pulse Resp BP Pulse Ox 98.8 F 104 H 21 H 141/75 H 95 07/22/22 08:00 07/22/22 08:02 07/22/22 08:00 07/22/22 08:02 07/22/22 08:00 General: Alert, In no apparent distress, Oriented x2 HEENT: Atraumatic, Normocephalic, Other (Hard of hearing, must speak loudly) Neck: Supple, JVD not distended Respiratory: Normal air movement, Diminished (bibasilar) Cardiovascular: No edema, Normal pulses Gastrointestinal: Normal bowel sounds, Soft and benign, Non-distended Musculoskeletal: No clubbing. Elbow pain, mild swelling. Integumentary: No rashes, No breakdown Neurological: Normal speech, Normal tone, Normal affect Urinary: Mccarthy catheter draining natan colored urine Studies Laboratory Data - Reviewed Microbiology Data - Reviewed Imagings Data: - Reviewed Assessment and Plan Problem List CAD s/p PCI x 4 Atrial Fibrillation, Chronic Hyperlipidemia Hx Guillan-[place] Syndrome in 2005 BPH Urinary Tract Infection * Allergies: Levofloxacin (hives), Codeine, Penicillins (itching), Influenza Virus Vaccines * Urinary Tract Infection - Urine culture: Enterococcus faecalis - Urology consulted on case - Mccarthy catheter placed 07/17. - On Vancomycin IV from 07/19-07/22 - Repeat urine culture 07/22: pending - Repeat blood cultures 07/22:pending Leukocytosis slightly improving, remains elevated (13.6) Afebrile Recommendations - Started on Zyvox 07/22 - Awaiting repeat urine and blood culture reports - Monitor WBC and fever trends - Per , Patient has follow up appointment with Urologist scheduled for Monday 07/24. - Continue supportive care and nutritional support as needed. ID will follow up and monitor patient closely. Case discussed with Sandra Ledesma
[2022-07-22] MEDS: NA CHLORIDE 0.9% 1,000 ML IV SCH ×2 (12:12→17:58)
[2022-07-22 20:21] LABS: Potassium 3.9 mEq/L (3.5-5.1)
[2022-07-22] MEDS: TAMSULOSIN 0.4 MG SR CAP PO SCH (21:31)
[2022-07-22] MEDS: LINEZOLID 600 MG TAB PO SCH (21:31)
[2022-07-22] MEDS: METOPROLOL TAR 25 MG TAB PO SCH (21:31)
[2022-07-22] MEDS: ROSUVASTATIN 10 MG TAB PO SCH (21:32)
[2022-07-23] MEDS ORDERED: GABAPENTIN 100 MG CAP PO ONE (00:55)
[2022-07-23] MEDS: LIDOCAINE 4% PATCH TOP SCH (02:27)
--- NOTE | 2022-07-23 03:54 | PN ---
Date of Progress Note: 07/22/2022 Chief Complaint: Hyponatremia. History Of Present Illness: Patient was found to have worsening of the chronic hyponatremia and he w as started on sodium chloride tablets to treat hyponatremia. Recently, Mccarthy catheter was placed to treat bladder outlet obstruction and urinary retention. Patient came to the hospital because of gene ralized weakness. Nephrology consultation was requested for worsening of hyponatremia. Sodium level was declining from 133 to 127 and patient was started on sodium chloride tablets to treat hyponatrem ia. He has previous history of Guillain-Frank[place] syndrome, chronic pain, coronary artery disease status post PCI for history of atrial fibrillation, hypertension, history of lower urinary tract symptoms w ith difficulty voiding and urinary retention. He currently has a Mccarthy catheter. Review of Systems: Denies fever, chills. Denies chest pain, palpitation. He is feeling better. Denies syncope. Physical Examination: Lungs: Clear to auscultation bilaterally. Heart: S1, S2. Abdomen: Soft. Extremities: No edema. Impression And Plan: Hyponatremia. Sodium level is gradually improving. Patient was treated with s odium chloride tablets. Recommend to avoid HCTZ which may cause accelerated severe hyponatremia in t his particular patient. The patient will continue IV normal saline for mild hydration. He has had d iminished p.o. intake and was complaining of nausea and may need a workup for gastroenteritis. The p atient was taking Cymbalta, which likely may aggravate hyponatremia. I will refer for Neurology [place] of the patients' neuropathy and decision about Cymbalta treatment. Lower urinary tract symptoms, urinary retention. Patient had Mccarthy catheter. The patient has nonoli guric urine output. Continue Flomax. Patient will limit p.o. fluid intake, although he will continu e sodium chloride tablets according to lab results. Plan is to stabilize sodium level and stop sodiu m chloride tablets when sodium level is within normal limits and further monitor blood work. EB/MODL Voice ID: [id number] Report ID: [id number]
[2022-07-23 06:26] LABS: Absolute Lymphocytes (CBC) 1.4 K/uL (0.7-4.9); Lymphocytes % 11.6 % (15.3-44.8); MPV 8.4 fL (7.6-11.3); RBC Red Blood Cell Count 3.74 M/uL (4.33-5.43)
[2022-07-23 06:43] LABS: Albumin 2.4 g/dL (3.4-5.0); Bilirubin Total 0.6 mg/dL (0.2-1.0); Potassium 3.9 mEq/L (3.5-5.1); Protein, Total 6.5 g/dL (6.4-8.2)
[2022-07-23] MEDS ORDERED: SODIUM CHLORIDE 1 GM TAB PO SCH (08:00)
[2022-07-23] MEDS: ACETAMINOPHEN 500 MG TAB PO SCH (08:51)
[2022-07-23] MEDS: FLUCONAZOLE 200mg IVPB 200 MG/100 ML BAG IV SCH (08:51)
[2022-07-23] MEDS: THIAMINE 200 MG/2 ML INJ IVP SCH (08:51)
[2022-07-23] MEDS: ASPIRIN 81 MG CHEWABLE TABLET PO SCH (08:52)
[2022-07-23] MEDS: LINEZOLID 600 MG TAB PO SCH ×2 (08:52→20:33)
[2022-07-23] MEDS: DULOXETINE 30 MG CAP PO SCH (08:52)
[2022-07-23] MEDS: FINASTERIDE 5 MG TAB PO SCH (08:52)
[2022-07-23] MEDS: APIXABAN 5 MG TABLET PO SCH ×2 (08:52→20:33)
[2022-07-23] MEDS: METOPROLOL TAR 50 MG TAB PO SCH (08:53)
[2022-07-23] MEDS ORDERED: POTASS/SODIUM PHOSPHATE 1 PKT POWD.PACK PO SCH (09:00)
[2022-07-23] MEDS: ENSURE ENLIVE 237 ML CAN PO SCH ×2 (09:00→20:35)
[2022-07-23] MEDS: GABAPENTIN 100 MG CAP PO SCH ×3 (09:01→20:35)
--- NOTE | 2022-07-23 10:20 | P.PN ---
Date of Service: 07/23/22 Chief complaint: AMS Subjective: No new changes. Denies any complaints at this time. Patient sitting in bed, A&Ox2-3. Afebrile. No acute events reported overnight. Physical Examination Temp Pulse Resp BP Pulse Ox 98.3 F 95 H 20 135/65 95 07/23/22 08:00 07/23/22 08:53 07/23/22 08:00 07/23/22 08:53 07/23/22 08:00 General: Alert, In no apparent distress, Oriented x2 HEENT: Atraumatic, Normocephalic; Hard of hearing, must speak loudly Neck: Supple, JVD not distended Respiratory: Normal air movement, Diminished bilaterally Cardiovascular: No edema, Normal pulses Gastrointestinal: Normal bowel sounds, Soft and benign, Non-distended Musculoskeletal: No clubbing. No swelling. Generalized weakness. 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 - On Vancomycin IV from 07/19-07/22. Switched to Zyvox 07/22. - Repeat blood cultures 07/22: No growth 24 hours - Repeat urine culture 07/21: Pending Leukocytosis slightly improving, remains elevated (13.6 -> 12.3 - on 07/23) Afebrile Recommendations - Continue Zyvox x 10 days (started 07/22). Patient was previously on Vancomycin for 4 days. - Awaiting repeat urine culture results - Patient has follow up appointment with Urologist scheduled for Monday 07/24. Per urology, pt to keep lr catheter in until appointment. - Monitor WBC and fever trends - Continue supportive care and nutritional support as needed. ID will follow up and monitor patient closely. Case discussed with Sandra Ledesma
--- NOTE | 2022-07-23 12:03 | RAD REPORT ---
EXAM DESCRIPTION: MRI - C Spine Wo Cont - 07/23/2022 8:57 am CLINICAL HISTORY: Weakness, primarily to bilateral legs and left arm. Moderate to severe neck pain. History of Guillian [place] syndrome. COMPARISON: 02/10/2020 TECHNIQUE: Multiplanar multisequence MRI of the cervical spine, obtained without IV contrast. FINDINGS: Anterior plating hardware noted at C4-5, resulting in some susceptibility signal abnormali ty. Cervical vertebral bodies are normal in height. Multilevel spondylolisthesis secondary to endplate an d facet arthropathy, with bold a 2 millimeter anterolisthesis of C5 over C6 and 1- 2 millimeter retro listhesis of C6 over C7. Mild dextroconvex curvature at the mid cervical spine. No suspicious marrow edema or marrow replacing process. Cerebellar tonsils and mid-line skull base show no suspicious finding. No significant finding at the C1 and C2 levels. C2-3 level: Central disc extrusion, without significant canal stenosis. Left more than right facet ar thropathy and uncovertebral joint spurring, contributing to [id number] bilateral neural foramin al narrowing. C3-4 level: Endplate spurring and bilateral facet and uncovertebral joint arthropathy contribute to m ild central canal stenosis. Moderate to severe left and mild right neural foraminal narrowing. C4-5 level: Endplate remodeling and left more than right uncovertebral joint and facet arthropathy. N o significant central canal stenosis. Moderate right and mild left neural foraminal narrowing. C5-6 level: Broad-based posterior disc osteophyte complex formation. Bilateral uncovertebral joint an d facet arthropathy with mild ligamentum flavum buckling. Overall mild central canal stenosis. Bilate ral moderate to severe neural foraminal narrowing. C6-7 level: Disc osteophyte complex formation posteriorly. Bilateral facet and uncovertebral joint ar thropathy with mild ligamentum flavum buckling. Overall mild central canal stenosis. Bilateral mild-t o-moderate neural foraminal narrowing. C7-T1 level: Broad-based posterior disc bulge. No see central canal stenosis. Mild left neural forami nal narrowing secondary to asymmetric facet arthropathy. Overall, the findings are not significantly changed, although direct comparison is limited given diff erences in technique and motion artifact on the current study. Cervical cord shows no focal narrowing, expansion or signal abnormality. IMPRESSION: Moderate to advanced multilevel cervical spine spondylitic changes. Findings contribute to mild central canal stenosis at C3-4, C5-6, and C6-7, and variable degrees of neural foraminal narr owing, up to moderate to severe bilaterally at C5-6.
--- NOTE | 2022-07-23 17:14 | PN ---
Date of Progress Note: 07/23/2022 Subjective: The patient was admitted with hyponatremia secondary to depletional, superimposed with hydrochlorothiazide and chronic obstructive uropathy. Physical Examination: Vital Signs: When I saw the patient; blood pressure 119/69, pulse of 72, afebrile. The patient had good urine output of 1800. Chest: Clear to auscultation. Heart: S1, S2. Regular. Abdomen: Soft, nontender. Extremity: No edema. Neuro: No focality. The patient had Mccarthy. Laboratory Data: Sodium 129, potassium 3.9, bicarb 27, BUN 20, creatinine 0.7, calcium of 9. Hemoglobin 10.2. Urinalysis; specific gravity of 1.029, urine sodium of 42, urine osmolality 820. Current Medications: The patient on include; 1. Fluconazole. 2. Linezolid. 3. Flomax. 4. Aspirin. 5. Metoprolol 25 b.i.d. 6. Rosuvastatin. 7. Gabapentin. 8. Ensure. 9. Finasteride. Assessment And Plan: 1. 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 I going to go ahead and increase the salt tablet to 2 g t.i.d. and we will add Lasix 20 mg and we will follow up the patient. 2. Hypertension, controlled, optimal. 3. Hypomagnesemia. We will supplement. 4. Obstructive uropathy. Maintain Mccarthy. Continue finasteride. We will follow up with primary and Urology. time spend exam the patient face to face , reviewing the DATA lab and Radiology, placing the order, discussing the case with the patient ,reviewing the care plan with team assembler including the nursing staff , discussing with the hospitalist >35 min ARLENE Voice ID: [id number] Report ID: [id number] CAROLINE
[2022-07-23 17:30] LABS: Specific Gravity 1.019 (1.005-1.030); Urine Bacteria None Seen /HPF (<20); Urine Bilirubin NEGATIVE (Negative); Urine Blood 1+ (Negative); Urine Clarity Clear (Clear); Urine Color Light-Yellow (Yellow); Urine Glucose NEGATIVE (Negative); Urine Mucus Slight /HPF (None Seen); Urine Protein TRACE (Negative); Urine Urobilinogen 1+ (Normal); Urine pH 5.5 (5.0-7.0)
--- NOTE | 2022-07-23 18:28 | P.PN ---
Subjective Date of Service: 07/23/22 Primary Care Provider: Dr. Lambert Chief Complaint: Possible pneumonia Patient is confused but more awake and interactive. No agitation reported. No event overnight. Physical Examination - Vital Signs Temperature: 97.9 F Blood Pressure: 120/70 Pulse: 89 Respirations: 18 Pulse Ox (%): 94 Assessment And Plan - Plan Physical Exam: GEN: hard of hearing, pleasant / NAD HEENT: Normal conjunctiva, sclera anicteric CV: regular rate/rhythm, no edema Pulm: Clear to auscultation bilaterally. ABD: Soft, nontender, nondistended MSK: L elbow, swelling, slight erythema, tender Neuro: Normal speech. Lr in place vitals reviewed Problem List: UTI Urinary retention Acute Toxic Metabolic Encephalopathy suspect due to UTI hyponatremia, mild Blood cultures 07/13: No growth Urinalysis - pyuria culture: enterococcus initially on rocephin/azithro for possible pneumonia ruled out, Dr. Benson consulted ID consulted, tried unasyn, however pt had allergy on 07/17, switched to vanc No improvement after switched to vancomycin, concern for VRE repeat UA 07/21 - +bacteria, +yeast, +WBC ID switched to zyvox on 07/23 Diflucan added. Continue antibiotics. repeat blood culture 07/22: No growth todate repeat urine culture 07/21: pending Urology Consulted due to urinary retention s/p straight cath 07/16 evening lr placed 07/17 h/o BPH - on his home meds, tamsulosin/finasteride urology recommends continue lr, f/u for voiding trial /eval in office as scheduled next week Renal u/s 07/21 - unremarkable Hyponatremia urine / labs ordered for further eval downtrending. nephrology is following Continue salt replacement. 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 Focal moderate atherosclerotic stenosis of the proximal left P2 segment. No other Flow-limiting stenosis." CT neck angiogram - "no significant flow abnormality of the neck vessels is identified. Small saccular aneurysm or infundibulum arising from the distal right V2 segment." MRI brain, CXR - both negative Neurology consulted. - Dr. Boucher restart home gabapentin at lower dose Holding home baclofen, duloxetine, diphenhydramine on admission; holding baclofen Restarted gabapentin 07/16 decreased dose 07/21, due to slight increase in somnolence No focal motor deficit. Seen by neuro and had no further recommendation. Weakness likely secondary to generalized illness. Patient plan for inpatient rehab. Coronary Artery Disease s/p PCI x 4 Hypertension Hyperlipidemia Stable Continue home metoprolol, rosuvastatin daily 81mg aspirin Deconditioning with Recurrent [place] PT consulted - Pt. will always require assistance in mobility due to physical limitation & cognitive limitation per PT Xray elbow 07/22 - no acute fracture. KDIGO Stage I Acute Kidney Injury - resolved Chronic Atrial Fibrillation - Continue home metoprolol, apixaban Benign Prostatic Hyperplasia - Continue home tamsulosin, finasteride VTE: Eliquis Code: Full Dispo: inpatient rehabs
[2022-07-23] MEDS ORDERED: ACETAMINOPHEN 500 MG TAB ONE (20:20)
[2022-07-23] MEDS: ROSUVASTATIN 10 MG TAB PO SCH (20:33)
[2022-07-23] MEDS: METOPROLOL TAR 25 MG TAB PO SCH (20:34)
[2022-07-23] MEDS: TAMSULOSIN 0.4 MG SR CAP PO SCH (20:34)
[2022-07-23] MEDS: SODIUM CHLORIDE 1 GM TAB PO SCH (20:35)
[2022-07-23 21:36] VITALS: O2SAT 93
--- NOTE | 2022-07-24 00:12 | PN ---
Date of Progress Note: 07/23/2022 Reason: Weakness. History Of Present Illness: I was asked to evaluate the patient for subjective weakness given his hi story of Guillain-[place]. He still is in the hospital, was unable to go to a rehab and it appears nuzhat t he has some type of indolent infection. White count is 12,000, hemoglobin 10.2, and platelets are normal. CRPs are high at 168, 220, 150. Procalcitonin is actually trending up 0.15, 0.27, and 0.22 and just as concerning are that transaminases are grossly elevated in the 200s. It is not really my area of expertise, but it seems prudent to just at least stop the acetaminophen and consider addition al studies with regard to that abnormality. We did order an MRI of cervical spine given his history of significant spondylosis and the leg weakness. He has had lumbar surgery in the past as well. MRI of cervical spine with no cord compression, I think more importantly no evidence of diskitis, but we will end up needing to actually image both the lumbar and then probably the thoracic spine as well t o evaluate for possible osteodiskitis the cause of the questionable weakness and also search if there is anything that may need to be done additionally. He is on vancomycin. He does complain of headac he today and inflammatory markers are elevated. Physical Examination: He is awake. He is alert. 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 Ocular motion full. Muñoz full. Strength for me is full. Sensation is decrea sed distally. Reflexes are trace in the arms, 2+ at the knees, absent at the ankles. Toes are downg oing. There is no pain on percussion of the spine. There is slight left temporal artery tenderness. Impression: Generalized weakness. History of Guillain-[place]. I do not see any evidence for recurre nt Guillain-[place]. He has preserved reflexes still. MRI cervical spine with no cord compression. N o diskitis. We will obtain MRI and lumbar spine to evaluate for diskitis in the thoracic spine as we ll. With regard to the elevated liver function tests, I would say we will stop the acetaminophen and additional studies as would be considered by the patient's Internal Medicine attending may be requir ed. Repeat the liver function tests in the morning as well. Thank you for the consult. We will continue to follow with you. BENITA Voice ID: [id number] Report ID: [id number]
[2022-07-24 06:49] LABS: Albumin 2.4 g/dL (3.4-5.0); Bilirubin Direct 0.2 mg/dL (0-0.2); Bilirubin Indirect, Calculated 0.3 mg/dL (0.2-0.8); Bilirubin Total 0.5 mg/dL (0.2-1.0); Magnesium 1.5 mg/dL (1.6-2.4); Phosphorus 3.2 mg/dL (2.5-4.9); Potassium 3.8 mEq/L (3.5-5.1); Protein, Total 6.6 g/dL (6.4-8.2)
[2022-07-24 08:14] VITALS: BP 129/70; TEMP 97.8
[2022-07-24] MEDS: SODIUM CHLORIDE 1 GM TAB PO SCH (08:27)
[2022-07-24] MEDS: DULOXETINE 30 MG CAP PO SCH (08:28)
[2022-07-24] MEDS: GABAPENTIN 100 MG CAP PO SCH (08:28)
[2022-07-24] MEDS: ASPIRIN 81 MG CHEWABLE TABLET PO SCH (08:28)
[2022-07-24] MEDS: LINEZOLID 600 MG TAB PO SCH (08:28)
[2022-07-24] MEDS: APIXABAN 5 MG TABLET PO SCH (08:28)
[2022-07-24] MEDS: LIDOCAINE 4% PATCH TOP SCH (08:29)
[2022-07-24] MEDS: METOPROLOL TAR 50 MG TAB PO SCH (08:30)
[2022-07-24] MEDS: FINASTERIDE 5 MG TAB PO SCH (08:30)
[2022-07-24] MEDS: ENSURE ENLIVE 237 ML CAN PO SCH (08:30)
[2022-07-24] MEDS: THIAMINE 200 MG/2 ML INJ IVP SCH (08:30)
--- NOTE | 2022-07-24 08:51 | P.DS ---
Admission Date: 07/13/22 Discharge Date: 07/24/22 Primary Care Provider: Dr. Lambert Disposition: TRANSFER TO INPATIENT REHAB Discharge Condition: FAIR Reason for Admission: Possible pneumonia Brief History of Present Illness: Mr. Ranulfo Chao is an 86 year old male who has a past medical history of Guillan-[place] Syndrome, coronary artery disease s/p PCI x 4, atrial fibrillation, hypertension, benign prostatic hyperplasia, and hyperlipidemia who presented to the [facility] Emergency Department with altered mental status. He was quite confused on interview. He is alert and oriented x 1 to self only. History is provided by his , Ms. Marina Chao. She reported that, on 07/10/2022, he woke up from sleep around 03:00 AM with confusion, dizziness, and recurrent falls. She denied any urinary incontinence. She reported that, since this time, his confusion has been getting worse. They contacted his neurologist, Dr. Boucher, who recommended an MRI, but this was not scheduled. No complaint of any fevers, chills, headaches, syncope, shortness of breath, wheezing, cough, nausea/vomiting, or diarrhea. He was brought in to the Emergency Department for further evaluation. Upon presentation, his vital signs were stable. His laboratory studies were notable for a creatinine of 1.50 and a magnesium of 1.4. Troponin x 1 was 26.9. EKG was without STEMI criteria. His chest x-ray revealed, "hazy right basilar airspace opacities, concerning for early pneumonia." His CT head revealed, "no evidence of an acute intracranial process." CT head angiogram revealed, "no evidence of large vessel occlusion. Focal moderate atherosclerotic stenosis of the proximal left P2 segment. No other Flow-limiting stenosis." CT neck angiogram revealed, "no significant flow abnormality of the neck vessels is identified. Small saccular aneurysm or infundibulum arising from the distal right V2 segment." In the Emergency Department, he was given ceftriaxone and azithromycin. He was admitted for further management. Hospital Course: Diagnosis UTI Urinary retention Acute Toxic Metabolic Encephalopathy suspect due to UTI hyponatremia, mild Blood cultures 07/13: No growth Urinalysis - pyuria culture: enterococcus initially on rocephin/azithro for possible pneumonia ruled out, Dr. Benson consulted ID consulted, tried unasyn, however pt had allergy on 07/17, and switched to vanc No improvement after switched to vancomycin, concern for VRE repeat UA 07/21 - +bacteria, +yeast, +WBC ID switched vancomycin to zyvox on 07/23 Diflucan added. Patient to complete 10 days of Zyvox. repeat blood culture 07/22: No growth todate repeat urine culture 07/21: No growth Urology Consulted due to urinary retention s/p straight cath 07/16 evening lr placed 07/17 h/o BPH - on his home meds, tamsulosin/finasteride urology recommended to continue lr, f/u for voiding trial. Renal u/s 07/21 - unremarkable Dr. Curtis informed to follow up with patient. Hyponatremia Sodium level has been hovering around 130. nephrology is following On sodium replacement. 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 Focal moderate atherosclerotic stenosis of the proximal left P2 segment. No other Flow-limiting stenosis." CT neck angiogram - "no significant flow abnormality of the neck vessels is identified. Small saccular aneurysm or infundibulum arising from the distal right V2 segment." MRI brain, CXR - both negative Neurology consulted. - Dr. Boucher restarted home dose gabapentin at lower dose Holding home baclofen. Duloxetine resumed. No focal motor deficit. Seen by neuro and had no further recommendation. Weakness likely secondary to generalized illness. Global weakness is improving. Patient accepted for inpatient rehab. Coronary Artery Disease s/p PCI x 4 Hypertension Hyperlipidemia Stable Continued home metoprolol, rosuvastatin, aspirin. Deconditioning with Recurrent [place] PT consulted - Pt. requiring assistance in mobility due to physical limitation & cognitive limitation per PT Xray elbow 07/22 - no acute fracture. KDIGO Stage I Acute Kidney Injury - resolved Chronic Atrial Fibrillation - Continued home metoprolol, apixaban Benign Prostatic Hyperplasia - Continued home tamsulosin, finasteride Vital Signs/Physical Exam: Temp Pulse Resp BP Pulse Ox 97.8 F 71 16 129/70 94 07/24/22 08:00 07/24/22 08:30 07/24/22 08:00 07/24/22 08:30 07/24/22 08:00 General: Oriented x2, Other (Awake) HEENT: Mucous membr. moist/pink Neck: JVD not distended Respiratory: Clear to auscultation bilaterally, Normal air movement Cardiovascular: No edema, Regular rate/rhythm, Normal S1 S2 Gastrointestinal: Soft and benign, Non-distended Musculoskeletal: No swelling Integumentary: No rashes Neurological: Normal strength at 5/5 x4 extr Laboratory Data at Discharge: WBC 12.30 thou/uL (4.3-10.9) H 07/23/22 06:08 Hgb 10.2 g/dL (13.6-17.9) L D 07/23/22 06:08 Hct 31.0 % (39.6-49.0) L 07/23/22 06:08 Plt Count 313 thou/uL (152-406) 07/23/22 06:08 Sodium 130 mEq/L (136-145) L 07/24/22 06:19 Potassium 3.8 mEq/L (3.5-5.1) 07/24/22 06:19 BUN 20 mg/dL (7-18) H 07/24/22 06:19 Creatinine 0.80 mg/dL (0.70-1.30) 07/24/22 06:19 Glucose 130 mg/dL (74-106) H 07/24/22 06:19 Uric Acid 6.0 mg/dL (3.5-7.2) 07/20/22 08:28 Phosphorus 3.2 mg/dL (2.5-4.9) 07/24/22 06:19 Magnesium 1.5 mg/dL (1.6-2.4) L 07/24/22 06:19 Total Bilirubin 0.5 mg/dL (0.2-1.0) 07/24/22 06:19 AST 183 U/L (15-37) H 07/24/22 06:19 ALT 202 U/L (16-61) H 07/24/22 06:19 Alkaline Phosphatase 192 U/L (45-117) H 07/24/22 06:19 Home Medications: Tamsulosin [Flomax*] 0.4 mg PO DAILY cap 03/26/18 Apixaban [Eliquis] 2.5 mg PO BID 07/13/22 Duloxetine HCl 30 mg PO DAILY 07/13/22 Finasteride [Proscar*] 5 mg PO DAILY 07/13/22 Rosuvastatin Calcium 20 mg PO BEDTIME 07/13/22 Aspirin Chewable [Aspirin Chewable*] 81 mg PO DAILY tab.chew 07/24/22 Ensure Enlive 237 ml PO BID can 07/24/22 Furosemide [Lasix*] 20 mg PO DAILY tab 07/24/22 Gabapentin [Neurontin*] 100 mg PO TID cap 07/24/22 Lidocaine 4% Patch [Lidoderm 5% Patch*] 1 patch TOP DAILY pat 07/24/22 Linezolid [Zyvox*] 600 mg PO BID #15 tab 07/24/22 Metoprolol Tartrate [Lopressor*] 25 mg PO DAILY@2100 tab 07/24/22 Sodium Chloride Tab [Sodium Chloride*] 2 gm PO TID tab 07/24/22 Followup: Tariq Boucher MD [ACTIVE - CAN ADMIT] - Gildardo Lambert MD [Primary Care Provider] - Bandar Curtis [ACTIVE - CAN ADMIT] - 1 Week Time spent managing pt's care (in minutes): 38
[2022-07-24] MEDS ORDERED: FUROSEMIDE 20 MG TABLET PO SCH (09:00)
--- NOTE | 2022-07-24 09:43 | P.PN ---
Date of Service: 07/24/22 Chief complaint: AMS Subjective: No new changes. A&Ox2 Denies any complaints at this time. No acute events reported overnight. On Zyvox PO for E.faecalis UTI Physical Examination Temp Pulse Resp BP Pulse Ox 97.8 F 71 16 129/70 94 07/24/22 08:00 07/24/22 08:30 07/24/22 08:00 07/24/22 08:30 07/24/22 08:00 General: Alert, In no apparent distress, Oriented x2 HEENT: Atraumatic, Normocephalic; Hard of hearing, must speak loudly Neck: Supple, JVD not distended Respiratory: Normal air movement, Diminished bilaterally Cardiovascular: No edema, Normal pulses Gastrointestinal: Normal bowel sounds, Soft and benign, Non-distended Musculoskeletal: No clubbing. No swelling. Generalized weakness. Integumentary: No rashes, No breakdown Neurological: Normal speech, Normal tone, Normal affect Studies Laboratory Data - Reviewed Microbiology Data - Reviewed Imagings Data: - Reviewed Medications List Reviewed: Yes Assessment and Plan Problem List CAD s/p PCI x 4 Atrial Fibrillation, Chronic Hyperlipidemia Hx Guillan-[place] Syndrome BPH Hyponatremia Urinary Tract Infection Moderate PCM Anemia * Allergies: Levofloxacin (hives), Codeine, Penicillins (itching), Influenza Virus Vaccines * Urinary Tract Infection, Enterococcus faecalis - Urine culture 07/14: Enterococcus faecalis - Urology on case - On Vancomycin IV from 07/19-07/22 -> Switched to Zyvox on 07/22. - Repeat blood cultures 07/22: No growth 24 hours - Repeat urine culture 07/21: No growth Leukocytosis slightly improving Remains afebrile Recommendations - Continue Zyvox PO x 10 days (started 07/22) Continue supportive care and nutritional support as needed. Current plan for inpatient rehab ID will follow the patient as needed. Case discussed with Sandra Ledesma
[2022-07-24] MEDS: FLUCONAZOLE 200mg IVPB 200 MG/100 ML BAG IV SCH (10:43)
[2022-07-24] MEDS ORDERED: Magnesium Sulfate 2gm IVPB 2 G/50 ML BAG IV ONE (10:52)
--- NOTE | 2022-07-24 12:19 | RAD REPORT ---
EXAM DESCRIPTION: MRI - Thoracic Spine Wo Contr - 07/24/2022 10:30 am CLINICAL HISTORY: r/o discitis Back pain, radiculopathy. COMPARISON: No comparisons FINDINGS: The vertebral body heights and disc spaces are maintained. Marrow pattern of the thoracic spine is within normal limits. Mild asymmetric disc bulge is present to the right foraminal region at T6-7 without significant steno sis. Mild degenerative disc disease present at T8-9 with broad-based posterior disc bulge resulting in mil d central canal narrowing. No paraspinal mass or hematoma. The thoracic cord is normal in size and signal. Trace bilateral pleural effusions. IMPRESSION: Degenerative disc disease and posterior disc bulge at T8-9 results in mild central canal narrowing.
--- NOTE | 2022-07-24 12:24 | RAD REPORT ---
EXAM DESCRIPTION: MRI - Lumbar Spine Wo Con- 07/24/2022 10:45 am CLINICAL HISTORY: r/o discitis Back pain, radiculopathy COMPARISON: MRI LUMBAR SPINE W O CON dated 12/09/2012 FINDINGS: Diminished abnormal T1 signal involving the disc space and adjacent vertebral body endplat es is noted at L3-4. There is elevated edema signal as well at this level particularly involving the endplates. Postsurgical changes are present with a broad-based posterior disc bulge. Evidence of cent ral canal stenosis is seen at this level. Posterior bulging of disc material is also present at L1-2 and L2-3. At L2-3 there is moderate cleaner touch up worker ior disc bulge asymmetric to the right with moderate facet and ligamentum flavum hypertrophy. Moderat e central canal stenosis and right lateral recess stenosis is seen. Postsurgical changes with laminectomy noted at L4-5 and L5-S1. Central canal is not significantly edith rowed. IMPRESSION: Abnormal appearance of the disc space and adjacent endplates centered at the L3-4 level. This could be related to degenerative changes however it is difficult to rule out spondylodiscitis. Post-contrast sequences through the lumbar spine would be recommended. Central canal stenosis is noted particularly prominent at L2-3 and L3-4 as detailed.
--- NOTE | 2022-07-24 12:34 | PN ---
Date of Progress Note: 07/24/2022 Subjective: Patient was admitted with hyponatremia, multifactorial secondary to depletional with hydrochlorothiazide induced superimposed with obstructive uropathy. Patient planned for MRI today. Physical Examination: Vital Signs: Blood pressure 129/70, pulse of 71. Chest: Clear to auscultation. Heart: S1, S2 regular. Abdomen: Soft, nontender. Mccarthy inserted. Extremities: No edema. Neuro: No focality. Cranial nerves intact. Laboratory Data: Hemoglobin 10.2. Sodium 130, potassium 3.8 bicarb 28, BUN 20, creatinine 0.8, calcium 8.9. Current Medications: The patient on include: 1. Fluconazole. 2. Aspirin. 3. Linezolid. 4. Flomax. 5. Eliquis. 6. Metoprolol. 7. Gabapentin. 8. Lasix 20. 9. Salt tablet 2 g t.i.d. Assessment And Plan: 1. 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 We will continue salt tablet and Lasix. We will monitor. 2. Hypertension, controlled, optimal. Continue current treatment. 3. Hypomagnesemia, status post supplement. Still on the lower side. I am going to replace again. 4. Obstructive uropathy. Continue finasteride. Follow up with Urology. 5. Deconditioning. Follow up with primary. Plan for rehab transfer. time spend exam the patient face to face , reviewing the DATA lab and Radiology, placing the order, discussing the case with the patient ,reviewing the care plan with merchandising team lead including the nursing staff , discussing with the hospitalist >35 min ARLENE Voice ID: [id number] Report ID: [id number] [facility]
== END 2022-07-24 10:59 | DRG 871 ==
LOC: ER 11:13 → ERHOLD 15:25 → 4TH 15:58
PROVIDERS: ADMIT Internal Medicine; ATTEND Internal Medicine
DX: A41.81 Sepsis due to Enterococcus (principal); G92.8 Other toxic encephalopathy; N39.0 Urinary tract infection, site not specified; I48.20 Chronic atrial fibrillation, unspecified; F05 Delirium due to known physiological condition; N17.9 Acute kidney failure, unspecified; E22.2 Syndrome of inappropriate secretion of antidiuretic hormone; E44.0 Moderate protein-calorie malnutrition; I10 Essential (primary) hypertension; E78.5 Hyperlipidemia, unspecified; G89.29 Other chronic pain; M54.9 Dorsalgia, unspecified; E78.00 Pure hypercholesterolemia, unspecified; G62.9 Polyneuropathy, unspecified; E83.42 Hypomagnesemia; I72.6 Aneurysm of vertebral artery; N40.0 Benign prostatic hyperplasia without lower urinary tract symptoms; D64.9 Anemia, unspecified; I66.22 Occlusion and stenosis of left posterior cerebral artery; N13.9 Obstructive and reflux uropathy, unspecified; F17.200 Nicotine dependence, unspecified, uncomplicated; I25.10 Atherosclerotic heart disease of native coronary artery without angina pectoris; R33.9 Retention of urine, unspecified; R09.02 Hypoxemia; Z88.5 Allergy status to narcotic agent; Z88.0 Allergy status to penicillin; Z88.1 Allergy status to other antibiotic agents; Z88.7 Allergy status to serum and vaccine; Z95.5 Presence of coronary angioplasty implant and graft; Z68.24 Body mass index [BMI] 24.0-24.9, adult; Z79.01 Long term (current) use of anticoagulants; Z79.899 Other long term (current) drug therapy; Z28.310 Unvaccinated for COVID-19
CPT/HCPCS: 36415; 70450; 70496; 70498; 70551; 71045; 72141; 72146; 72148; 76770; 80048; 80053; 80069; 80076; 80202; 81001; 82140; 82533; 82570; 82607; 82805; 83605; 83735; 83880; 83930; 83935; 84100; 84132; 84145; 84300; 84443; 84484; 84550; 85025; 86140; 87040; 87077; 87086; 87088; 87186; 92526; 92610; 93005; 94010; 96374; 97110; 97116; 97161; 97530; 99285; J0295; J0696; J1200; J1450; J1630; J2001; J3411; J3475; J3486; J7030; J7040; J7050; Q9967

== ENCOUNTER 2022-07-20 15:00 | Inpatient (IN) | payer OTHER ==
--- OUTSIDE RECORDS SUMMARY | 2022-07-24 11:14 | XMS REPORT | Continuity of Care Document ---
:1935 Author Organization [facility] t Address [address] [place] [address] [address] [place] [address] Care Team Providers Name Role Phone Edwardo Yu MD Primary Care Physician Maria Guadalupe Toussaint Attending Clinician Unavailable Doctor Unassigned, [place] Attending Clinician Unavailable Maria Guadalupe Toussaint MD Attending Clinician Tariq Boucher Attending Clinician ALLEGRA DUBOSE Attending Clinician Unavailable Nurse, [facility] Attending Clinician Unavailable Allegra Church Attending Clinician MARIA GUADALUPE TOUSSAINT Attending Clinician Unavailable Alma Dunn Attending Clinician SHANTELL WHEELER Attending Clinician Unavailable Provider, [facility] Attending Clinician Unavailable Shantell Wheeler MD Attending Clinician Sarah Berg MD Attending Clinician SARAH BERG Attending Clinician Unavailable Fabi Lara Attending Clinician FABI BOB Attending Clinician Unavailable Lab, Adc Fam Pob I Attending Clinician Unavailable Debi Costa Attending Clinician DEBI DUFF Attending Clinician Unavailable Ata Obando DO Attending Clinician ATA OBANDO Attending Clinician Unavailable ATA OBANDO Admitting Clinician Unavailable Payers Payer Name Policy Type Policy Number Effective Date Expiration Date Ward jeffries AETNA 53 [id number] [facility] Problems Condition Condition Condition Status Onset Resolution Last Treating Co mments Source Name Details Category Date Date Treatment Clinician Date Acute Acute Disease Active Methodi cholecysti cholecysti 03-26 [facility] tis tis 00:00: Hospita 00 l [...] erosis in erosis in 00:00: Herm [place]ly [place] 00 artery artery (disorder) (disorder) Active 05/05/2015 Problem 05/31/2022 [facility] Essential Essential Problem Active 2022-05-31 Memoria hypertensi hypertensi 05-05 14:42:03 l on on 00:00: Cuco (disorder) (disorder) 00 Active 05/05/2015 Problem 05/31/2022 [facility] Hyperlipid Hyperlipi Problem Active 2022-05-31 Memoria emia demia 05-05 14:42:03 l (disorder) (disorder) 00:00: Ck rmann Active 00 05/05/2015 Problem 05/31/2022 [facility] Transient Transient Problem Active 2022-05-31 Memoria ischemic ischemic 05-05 14:42:03 l attack attack 00:00: [place] (disorder) (disorder) 00 Active 05/05/2015 Problem 05/31/2022 [facility] Neuropathy Neuropath Problem Active 2016-2022-05-31 Memoria (disorder) y 1-19 14:42:03 l (disorder) 00:00: Kevin n Active 00 03/28/2015 Problem 05/31/2022 [facility] Lumbar Lumbar Problem Active 2014-2022-05-31 [facility] radiculopa radiculopa 0-13 14:42:03 l thy thy 00:00: [place] (disorder) (disorder) 00 Active 2014 Problem 05/31/2022 [facility] Prediabete Prediabete Disease Active U inés s s 2-07 ity of 00:00: [place] [facility] Diplopia Diplopia Problem Active 2022-05-31 Memoria (disorder) (disorder) 14:42:03 l Active Cuco Problem 05/31/2022 [facility] Muscle Muscle Problem Active 2022-05-31 [facility] pain pain 14:42:03 l (finding) (finding) Herm sly Active Problem 05/31/2022 [facility] 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 He rmann (disorder) (disorder) Active Problem 05/31/2022 [facility] Visual Visual Problem Active 2022-05-31 [facility] impairment impairment 14:42:03 l (disorder) (disorder) He rmann Active Problem 05/31/2022 [facility] Cervical Cervical Problem Active 2022-05-31 Memoria radiculopa radiculopa 14:42:03 l thy thy Cuco (disorder) (disorder) Active Problem 05/31/2022 [facility] Confusiona Confusion Problem Active 2022-05-31 Memoria l state al state 14:42:03 l (disorder) (disorder) He rmann Active Problem 05/31/2022 [facility] Fracture Fracture Problem Active 2022-05-31 Memoria of rib of rib 14:42:03 l (disorder) (disorder) He rmann Active Problem 05/31/2022 [facility] Knee pain Knee pain Problem Active 2022-05-31 Memoria (finding) (finding) 14:42:03 l Active [place] Problem 05/31/2022 [facility] Recurrent Problem Active 2022-05-31 Me mor[place] falls Recurrent 14:42:03 l (finding) falls Cuco (finding) Active Problem 05/31/2022 [facility] Rib pain Rib pain Problem Active 2022-05-31 Memoria (finding) (finding) 14:42:03 l Active Cuco Problem 05/31/2022 [facility] Amnesia Amnesia Problem Active 2022-05-31 Me li (finding) (finding) 14:42:03 l Active [place] Problem 05/31/2022 [facility] Urinary Complicate Problem Comm on tract d UTI [facility] infectious (urinary - CH I disease tract St infection) [facility] Epididymit Epididymit Problem C ommon is is [facility] [id number] BPH loc w Problem Com mon urin [facility] obs/TS [facility] [id number] History of Problem C omelissa [id number] febrile [facility] urinary - [facility]I tract [facility] infection [facility] [id number] Acute pain Problem Co mmon in scrotum [facility] [id number] Status Problem Common post fall [facility] Lumbar Lumbar Disease Active Methodi disc disc st disease disease Hospita with with l radiculopa radiculopa thy thy 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 Myoclonus Problem Resolve 2021-10-26 2021-10-26 Memoria (finding) (finding) d 09-27 04:51:42 04:51:42 l Resolved 00:00: Cuco 09/28/2015 00 Problem 10/26/2021 [facility] Allergies, Adverse Reactions, Alerts Allergy Allergy Status Severity Reaction(s) Onset Inactive Treating Comm ents Source Name Type Date Date Clinician 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 -[address] Vaccines adverse 00:00: Syndrome Hospi ta reaction 00 l s to drug Codeine Propensi Active Other (See 2015-03 nausea Met hodi ty to Comments) 04-24 st adverse 00:00: Hospita reaction 00 l s to drug Levoflox Propensi Active Other (See 2015-03 hypotensi Methodi acin ty to Comments) [address] adverse 00:00: Hospita reaction 00 [...] 0-15 ity of 00:00: [place] 00 [facility] [place] [id number] Drug Active Unknown Common allergy [facility] codeine codeine Active Unknown [facility] Family History Family Member Diagnosis Comments Start Date Stop Date Source Natural brother Emphysema [facility] Natural brother Heart disease Method [facility] Natural father Cerebral aneurysm Met [facility] Natural mother Emphysema [facility] Social History Social Habit Start Date Stop Date Quantity Comments Source History of Tobacco [facility] Use [facility] History SDOH University o f Alcohol Frequency [facility] edical [place] History SDOH University o f Alcohol Std Drinks [facility] History SDOH University o f Alcohol Binge [facility] [place] Gender identity [facility] Sexual orientation Method [facility] Exposure to 2021-10-14 2021-10-24 Not sure University of SARS-CoV-2 (event) 00:00:00 19:11:00 [facility] Tobacco use and 2021-10-24 2021-10-24 Smokeless tobacco Un iversity of exposure 00:00:00 00:00:00 non-user [facility] History of Social 2018-10-28 2018-10-[address] function 00:00:00 00:00:00 Hospital Cigarettes smoked 2018-03-26 2018-03-[address] current (pack per 00:00:00 00:00:00 Hospita day) - Reported Cigarette 2018-03-26 2018-03-26 [facility] pack-years 00:00:00 00:00:00 Hospital Alcohol intake 2018-03-26 2018-03-26 Current drinker of Me [facility]ist 00:00:00 00:00:00 alcohol (finding) Hospita Alcohol Comment 2018-02-27 2018-02-[address] 00:00:00 00:00:00 Hospital Sex Ass[birth year] At [birth year] [facility] 00:00:00 00:00:00 Hospital Smoking Status Start Date Stop Date Source Tobacco smoking status 2022-05-28 18:51:30 2022-05-28 18:51:30 [facility] [place] Medications Ordered Filled Start Stop Current Ordering Indication Dosage Frequency Signature Comments Components Source Medication Medication Date Date Medication? Clinician (SIG) Name Name gabapentin Yes See Memoria 600 mg oral 3-03 Instructio l tablet 17:03: ns, TAKE [place] 00 ONE TABLET BY MOUTH THREE TIMES A DAY, # 270 tab, 1 Refill(s), Pharmacy: [facility] [id number], 162.56, cm, 01/23/22 11:34: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, Height, 75.085, kg, 01/23/22 11:34: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, Weight gabapentin Yes See Memoria 600 mg oral 3-03 Instructio l tablet 17:03: ns, TAKE [place] 00 ONE TABLET BY MOUTH THREE TIMES A DAY, # 270 tab, 1 Refill(s), Pharmacy: [facility] [id number], 162.56, cm, 01/23/22 11:34: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, Height, 75.085, kg, 01/23/22 11:34: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, Weight DULoxetine 2021-03 Yes See Memoria 30 mg oral 1-28 Instructio l delayed 20:13: ns, TAKE Kevin n release 00 ONE capsule CAPSULE BY MOUTH DAILY, # 30 unknown unit, 5 Refill(s), Pharmacy: [facility] [id number], 162.56, cm, 01/23/22 11:34: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, Height, 75.085, kg, 01/23/22 11:34: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, Weight DULoxetine 2021-03 Yes See Memoria 30 mg oral 1-28 Instructio l delayed 20:13: ns, TAKE Kevin n release 00 ONE capsule CAPSULE BY MOUTH DAILY, # 30 unknown unit, 5 Refill(s), Pharmacy: [facility] [id number], 162.56, cm, 01/23/22 11:34: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, Height, 75.085, kg, 01/23/22 11:34: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, Weight finasteride 2021-03 Yes 0 Memori a 5 mg oral 1-16 Refill(s) l tablet 17:35: [place] 00 rosuvastati 2021-03 Yes 20 mg = 1 M emoria n 20 mg 1-16 tab, PO, l oral tablet 17:35: Bedtime, # [place]uc[place] 00 30 tab, 0 Refill(s) finasteride 2021-03 Yes 0 Memori a 5 mg oral 1-16 Refill(s) l tablet 17:35: [place] 00 rosuvastati 2021-03 Yes 20 mg = 1 M emoria n 20 mg 1-16 tab, PO, l oral tablet 17:35: Bedtime, # Cuco 00 30 tab, 0 Refill(s) DULoxetine Yes See Memoria 30 mg oral 8-08 Instructio l delayed 17:12: ns, TAKE Kevin n release 00 ONE capsule CAPSULE BY MOUTH DAILY, # 30 unknown unit, 2 Refill(s), Pharmacy: [facility] [id number], 162.56, cm, 04/18/21 14:08: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, Height, 75, kg, 04/18/21 14:08: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, Weight DULoxetine Yes See Memoria 30 mg oral 8-08 Instructio l delayed 17:12: ns, TAKE Kevin n release 00 ONE capsule CAPSULE BY MOUTH DAILY, # 30 unknown unit, 2 Refill(s), Pharmacy: [facility] [id number], 162.56, cm, 04/18/21 14:08: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, Height, 75, kg, 04/18/21 14:08: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, Weight gabapentin 2022-0 Yes See Memoria 600 mg oral 7-19 Instructio l tablet 15:32: ns, TAKE [place] 00 ONE TABLET BY MOUTH THREE TIMES A DAY, # 270 tab, 1 Refill(s), Pharmacy: [facility] [id number], 162.56, cm, 04/18/21 14:08: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, Height, 75, kg, 04/18/21 14:08: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, Weight gabapentin 2-0 Yes See Memoria 600 mg oral 7-19 Instructio l tablet 15:32: ns, TAKE [place] 00 ONE TABLET BY MOUTH THREE TIMES A DAY, # 270 tab, 1 Refill(s), Pharmacy: [facility] [id number], 162.56, cm, 04/18/21 14:08: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, Height, 75, kg, 04/18/21 14:08: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, Weight gabapentin 2-0 Yes See Memoria 600 mg oral 7-19 Instructio l tablet 15:32: ns, TAKE [place] 00 ONE TABLET BY MOUTH THREE TIMES A DAY, # 270 tab, 1 Refill(s), Pharmacy: [facility] [id number], 162.56, cm, 04/18/21 14:08: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, Height, 75, kg, 04/18/21 14:08: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, Weight gabapentin 2-0 Yes See Memoria 600 mg oral 7-19 Instructio l tablet 15:32: ns, TAKE [place] 00 ONE TABLET BY MOUTH THREE TIMES A DAY, # 270 tab, 1 Refill(s), Pharmacy: [facility] [id number], 162.56, cm, 04/18/21 14:08: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, Height, 75, kg, 04/18/21 14:08: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, Weight WheelChair 2021-0 Yes 1 ea, Memori a 7-13 MISC, l 14:33: ONCALL, # Cuco 00 1 ea, 0 Refill(s), 162.56, cm, 04/18/21 14:08: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, Height, 75, kg, 04/18/21 14:08: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, Weight WheelChair 0 Yes 1 ea, Memori a 7-13 MISC, l 14:33: ONCALL, # Cuco 00 1 ea, 0 Refill(s), 162.56, cm, 04/18/21 14:08: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, Height, 75, kg, 04/18/21 14:08: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, Weight WheelChair 0 Yes 1 ea, Memori a 7-13 MISC, l 14:33: ONCALL, # Cuco 00 1 ea, 0 Refill(s), 162.56, cm, 04/18/21 14:08: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, Height, 75, kg, 04/18/21 14:08: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, Weight WheelChair Yes 1 ea, Memori a 7-13 MISC, l 14:33: ONCALL, # [place] 00 1 ea, 0 Refill(s), 162.56, cm, 04/18/21 14:08: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, Height, 75, kg, 04/18/21 14:08: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, Weight baclofen 10 0 No 10 mg = 1 M emoria mg oral 7-13 tab, PO, l tablet 14:27: BID, # 60 Kevin n 00 tab, 2 Refill(s), Pharmacy: [facility] [id number], 162.56, cm, 04/18/21 14:08: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, Height, 75, kg, 04/18/21 14:08: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, Weight baclofen 0 No 10 mg = 1 M emoria mg oral 7-13 tab, PO, l tablet 14:27: BID, # 60 Kevin n 00 tab, 2 Refill(s), Pharmacy: [facility] [id number], 162.56, cm, 04/18/21 14:08: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, Height, 75, kg, 04/18/21 14:08: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, Weight baclofen 10 0 No 10 mg = 1 M emoria mg oral 7-13 tab, PO, l tablet 14:27: BID, # 60 Kevin n 00 tab, 2 Refill(s), Pharmacy: [facility] [id number], 162.56, cm, 04/18/21 14:08: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, Height, 75, kg, 04/18/21 14:08: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, Weight baclofen 10 2021-0 No 10 mg = 1 M emoria mg oral 7-13 tab, PO, l tablet 14:27: BID, # 60 Kevin n 00 tab, 2 Refill(s), Pharmacy: [facility] [id number], 162.56, cm, 04/18/21 14:08: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, Height, 75, kg, 04/18/21 14:08: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, Weight Finasteride Finasteride 2022- No 1{table QD Finasterid 5 MG 5 MG 07-26- t} e 5 MG 00:00: 00:00 00 :00 Tamsulosin Tamsulosin 2021-2022- No 1{capsu QD Tamsulosin HCl 0.4 MG HCl 0.4 MG 07-26- le} HCl 0.4 MG 00:00: 00:00 00 :00 gabapentin 2022-0 Yes 900mg Take 900 Un sabiha 300 mg 3-16 mg by ity of capsule 10:49: mouth 3 [place] [address] (three) Medical times Branch daily. gabapentin 2022-0 Yes 900mg Take 900 Un sabiha 300 mg 3-16 mg by ity of capsule 10:49: mouth 3 [place] 44 (three) Medical times Branch daily. gabapentin 2022-0 Yes 900mg Take 900 Un sabiha 300 mg 3-16 mg by ity of capsule 10:49: mouth 3 [place] 44 (three) Medical times Branch daily. gabapentin 2022-0 Yes 900mg Take 900 Un sabiha 300 mg 3-16 mg by ity of capsule 10:49: mouth 3 [place] 44 (three) Medical times Branch daily. gabapentin 2022-0 Yes 900mg Take 900 Un sabiha 300 mg 3-16 mg by ity of capsule 10:49: mouth 3 [place] 44 (three) Medical times Branch daily. predniSONE 2022-0 Yes 5 mg = 1 Mem oria 5 mg oral 2-09 tab, PO, l tablet 20:54: Daily, # [place] 00 30 tab, 3 Refill(s), Pharmacy: [facility] [id number], 162.56, cm, 04/18/21 14:08: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, Height, 75, kg, 04/18/21 14:08: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, Weight predniSONE 2022-0 Yes 5 mg = 1 Mem oria 5 mg oral 2-09 tab, PO, l tablet 20:54: Daily, # [place] 00 30 tab, 3 Refill(s), Pharmacy: [facility] [id number], 162.56, cm, 04/18/21 14:08: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, Height, 75, kg, 04/18/21 14:08: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, Weight predniSONE 2022-0 Yes 5 mg = 1 Mem oria 5 mg oral 2-09 tab, PO, l tablet 20:54: Daily, # [place] 00 30 tab, 3 Refill(s), Pharmacy: [facility] [id number], 162.56, cm, 04/18/21 14:08: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, Height, 75, kg, 04/18/21 14:08: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, Weight predniSONE 2022-0 Yes 5 mg = 1 Mem oria 5 mg oral 2-09 tab, PO, l tablet 20:54: Daily, # [place] 00 30 tab, 3 Refill(s), Pharmacy: [facility] [id number], 162.56, cm, 04/18/21 14:08: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, Height, 75, kg, 04/18/21 14:08: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, Weight DULoxetine 2020-0 Yes See Memoria 30 mg oral 9-05 Instructio l delayed 20:18: ns, TAKE Kevin n release 00 ONE capsule CAPSULE BY MOUTH DAILY, # 30 unknown unit, 5 Refill(s), Pharmacy: [facility] [id number], 162.56, cm, 04/06/20 9:15: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, Height, 74.091, kg, 04/06/20 9:15: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, Weight DULoxetine 2020-0 Yes See Memoria 30 mg oral 9-05 Instructio l delayed 20:18: ns, TAKE Kevin n release 00 ONE capsule CAPSULE BY MOUTH DAILY, # 30 unknown unit, 5 Refill(s), Pharmacy: [facility] [id number], 162.56, cm, 04/06/20 9:15: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, Height, 74.091, kg, 04/06/20 9:15: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, Weight DULoxetine 2020-0 Yes See Memoria 30 mg oral 9-05 Instructio l delayed 20:18: ns, TAKE Kevin n release 00 ONE capsule CAPSULE BY MOUTH DAILY, # 30 unknown unit, 5 Refill(s), Pharmacy: [facility] [id number], 162.56, cm, 04/06/20 9:15: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, Height, 74.091, kg, 04/06/20 9:15: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, Weight DULoxetine 2021-0 Yes See Memoria 30 mg oral 9-05 Instructio l delayed 20:18: ns, TAKE Kevin n release 00 ONE capsule CAPSULE BY MOUTH DAILY, # 30 unknown unit, 5 Refill(s), Pharmacy: [facility] [id number], 162.56, cm, 04/06/20 9:15: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, Height, 74.091, kg, 04/06/20 9:15: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, Weight DULoxetine 202-0 Yes See Memoria 30 mg oral 9-05 Instructio l delayed 20:18: ns, TAKE Kevin n release 00 ONE capsule CAPSULE BY MOUTH DAILY, # 30 unknown unit, 5 Refill(s), Pharmacy: [facility] [id number], 162.56, cm, 04/06/20 9:15: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, Height, 74.091, kg, 04/06/20 9:15: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, Weight DULoxetine 2020-0 Yes See Memoria 30 mg oral 3-04 Instructio l delayed 19:26: ns, TAKE Kevin n release 00 ONE capsule CAPSULE BY MOUTH DAILY, # 30 unknown unit, 5 Refill(s), Pharmacy: [facility] [id number], 162.56, cm, 04/06/20 9:15: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, Height, 74.091, kg, 04/06/20 9:15: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, Weight DULoxetine 2021-0 Yes See Memoria 30 mg oral 3-04 Instructio l delayed 19:26: ns, TAKE Kevin n release 00 ONE capsule CAPSULE BY MOUTH DAILY, # 30 unknown unit, 5 Refill(s), Pharmacy: [facility] [id number], 162.56, cm, 04/06/20 9:15: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, Height, 74.091, kg, 04/06/20 9:15: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, Weight DULoxetine 2021-0 Yes See Memoria 30 mg oral 3-04 Instructio l delayed 19:26: ns, TAKE Kevin n release 00 ONE capsule CAPSULE BY MOUTH DAILY, # 30 unknown unit, 5 Refill(s), Pharmacy: [facility] [id number], 162.56, cm, 04/06/20 9:15: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, Height, 74.091, kg, 04/06/20 9:15: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, Weight DULoxetine 2020-0 Yes See Memoria 30 mg oral 3-04 Instructio l delayed 19:26: ns, TAKE Kevin n release 00 ONE capsule CAPSULE BY MOUTH DAILY, # 30 unknown unit, 5 Refill(s), Pharmacy: [facility] [id number], 162.56, cm, 04/06/20 9:15: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, Height, 74.091, kg, 04/06/20 9:15: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, Weight DULoxetine 2020-0 Yes See Memoria 30 mg oral 3-04 Instructio l delayed 19:26: ns, TAKE Kevin n release 00 ONE capsule CAPSULE BY MOUTH DAILY, # 30 unknown unit, 5 Refill(s), Pharmacy: [facility] [id number], 162.56, cm, 04/06/20 9:15: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, Height, 74.091, kg, 04/06/20 9:15: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, Weight gabapentin 2020-0 Yes See Memoria 600 MG Oral 1-28 Instructio l Tablet 15:42: ns, 1/2 [place] [Neurontin] 00 tab PO TID 90 day, # 180 tab, 1 Refill(s), Pharmacy: [place] [id number], 162.56, cm, 04/06/20 9:15: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, Height, 74.091, kg, 04/06/20 9:15: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, Weight gabapentin 2020-0 Yes See Memoria 600 MG Oral 1-28 Instructio l Tablet 15:42: ns, 1/2 [place] [Neurontin] 00 tab PO TID 90 day, # 180 tab, 1 Refill(s), Pharmacy: [facility] 256, 162.56, cm, 04/06/20 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: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, Height, 74.091, kg, 04/06/20 9:15: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, Weight gabapentin 2021-0 Yes See Memoria 600 MG Oral 1-28 Instructio l Tablet 15:42: ns, 12 [place] [Neurontin] 00 tab PO TID 90 day, # 180 tab, 1 Refill(s), Pharmacy: [facility], 162.56, cm, 04/06/20 9:15: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, Height, 74.091, kg, 04/06/20 9:15: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, Weight gabapentin 0 Yes See Memoria 600 MG Oral -28 Instructio l Tablet 15:42: ns, 2 [place] [Neurontin] 00 tab PO TID 90 day, # 180 tab, 1 Refill(s), Pharmacy: [facility], 162.56, cm, 04/06/20 9:15: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, Height, 74.091, kg, 04/06/20 9:15: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, Weight gabapentin Yes See Memoria 600 MG Oral -28 Instructio l Tablet 15:42: ns, 2 [place] [Neurontin] 00 tab PO TID 90 day, # 180 tab, 1 Refill(s), Pharmacy: [facility] [place], 162.56, cm, 04/06/20 9:15: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, Height, 74.091, kg, 04/06/20 9:15: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, Weight gabapentin 2019-03 Yes 600 mg = 1 M emoria 600 MG Oral 1-21 tab, PO, l Tablet 01:47: TID, # 270 Elaine nn [Neurontin] 00 tab, 1 Refill(s), Pharmacy: [facility] 256, 162.56, cm, 01/27/20 11:01: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, Height, 72.727, kg, 01/27/20 11:01: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, Weight gabapentin 2019-03 Yes 600 mg = 1 M emoria 600 MG Oral 1-21 tab, PO, l Tablet 01:47: TID, # 270 Elaine nn [Neurontin] 00 tab, 1 Refill(s), Pharmacy: [facility] 256, 162.56, cm, 01/27/20 11:01: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, Height, 72.727, kg, 01/27/20 11:01: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 losartan 25 2019-03 Yes 25mg Take 25 mg [facility] mg tablet 0-12 by mouth ity of 14:20: daily. [address] [facility] rosuvastati 2019-03 Yes 20mg Take 20 mg Univers n 20 mg 0-12 by mouth ity of tablet 14:20: at [place] [address] bedtime. Medical Branch gabapentin 2019-03 Yes 900mg Take 900 Un sabi[place] 300 mg 0-12 mg by ity of capsule 14:20: mouth 3 [place] 35 (three) Medical times Branch daily. apixaban 2019-03 Yes 2.5mg Take 2.5 Univ ers (ELIQUIS) 0-12 mg by ity of 2.5 mg 14:20: mouth 2 [place] tablet 35 (two) Medical times Branch daily. losartan 25 2019-03 Yes 25mg Take 25 mg Univers mg tablet 0-12 by mouth ity of 14:20: daily. [place] [address] Medical Branch rosuvastati 2019-03 Yes 20mg Take 20 mg Univers n 20 mg 0-12 by mouth ity of tablet 14:20: at [place] [address] bedtime. Medical Branch gabapentin 2019-03 Yes 900mg Take 900 Un sabiha 300 mg 0-12 mg by ity of capsule 14:20: mouth 3 [place] [address] (three) Medical times Branch daily. apixaban 2019-03 Yes 2.5mg Take 2.5 Univ ers (ELIQUIS) 0-12 mg by ity of 2.5 mg 14:20: mouth 2 [place] tablet 35 (two) Medical times Branch daily. losartan 25 2019-03 Yes 25mg Take 25 mg Univers mg tablet 0-12 by mouth ity of 14:20: daily. [address] Branch rosuvastati 2019-03 Yes 20mg Take 20 mg Univers n 20 mg 0-12 by mouth ity of tablet 14:20: at [place] [address] bedtime. Medical Branch gabapentin 2019-03 Yes 900mg Take 900 Un sabi[place] 300 mg 0-12 mg by ity of capsule 14:20: mouth 3 [place] [address] (three) Medical times Branch daily. apixaban 2019-03 Yes 2.5mg Take 2.5 Univ ers (ELIQUIS) 0-12 mg by ity of 2.5 mg 14:20: mouth 2 [place] tablet 35 (two) Medical times Branch daily. losartan 25 2019-03 Yes 25mg Take 25 mg Univers mg tablet 0-12 by mouth ity of 14:20: daily. [place] [address] Medical Branch rosuvastati 2019-03 Yes 20mg Take 20 mg Univers n 20 mg 0-12 by mouth ity of tablet 14:20: at [place] [address] bedtime. Medical Branch gabapentin 2019-03 Yes 900mg Take 900 Un [place] 300 mg 0-12 mg by ity of capsule 14:20: mouth 3 [place] [address] (three) Medical times Branch daily. apixaban 2019-03 Yes 2.5mg Take 2.5 Univ ers (ELIQUIS) 0-12 mg by ity of 2.5 mg 14:20: mouth 2 [place] tablet 35 (two) Medical times Branch daily. losartan 25 2019-03 Yes 25mg Take 25 mg Univers mg tablet 0-12 by mouth ity of 14:20: daily. [place] [address] Medical Branch rosuvastati 2019-03 Yes 20mg Take 20 mg Univers n 20 mg 0-12 by mouth ity of tablet 14:20: at [place] [address] bedtime. Medical Branch apixaban 2019-03 Yes 2.5mg Take 2.5 Univ ers (ELIQUIS) 0-12 mg by ity of 2.5 mg 14:20: mouth 2 [place] tablet 35 (two) Medical times Branch daily. losartan 25 2019-03 Yes 25mg Take 25 mg Univers mg tablet 0-12 by mouth ity of 14:20: daily. [place] [address] Medical Branch rosuvastati 2019-03 Yes 20mg Take 20 mg Univers n 20 mg 0-12 by mouth ity of tablet 14:20: at [place] [address] bedtime. Medical Branch apixaban 2019-03 Yes 2.5mg Take 2.5 Univ ers (ELIQUIS) 0-12 mg by ity of 2.5 mg 14:20: mouth 2 [place] tablet 35 (two) Medical times [place] daily. losartan 25 2019-03 Yes 25mg Take 25 mg Univers mg tablet 0-12 by mouth ity of 14:20: daily. [address] Branch rosuvastati 2019-03 Yes 20mg Take 20 mg Univers n 20 mg 0-12 by mouth ity of tablet 14:20: at [place] [address] bedtime. Medical Branch apixaban 2019-03 Yes 2.5mg Take 2.5 Univ ers (ELIQUIS) 0-12 mg by ity of 2.5 mg 14:20: mouth 2 [place] tablet 35 (two) Medical times [place] daily. losartan 25 2019-03 Yes 25mg Take 25 mg Univers mg tablet 0-12 by mouth ity of 14:20: daily. [address] Branch rosuvastati 2019-03 Yes 20mg Take 20 mg Univers n 20 mg 0-12 by mouth ity of tablet 14:20: at [place] [address] bedtime. Medical Branch apixaban 2019-03 Yes 2.5mg Take 2.5 Univ ers (ELIQUIS) 0-12 mg by ity of 2.5 mg 14:20: mouth 2 [place] tablet 35 (two) Medical times [place] daily. losartan 25 2019-03 Yes 25mg Take 25 mg Univers mg tablet 0-12 by mouth ity of 14:20: daily. [address] rosuvastati 2020-1 Yes 20mg Take 20 mg Univers n 20 mg 0-12 by mouth ity of tablet 14:20: at [place] [address] bedtime. [facility] DULoxetine 2020-0 Yes See Memoria 30 mg oral 7-29 Instructio l delayed 22:57: ns, TAKE Kevin n release 00 ONE capsule CAPSULE BY MOUTH DAILY, # 30 unknown unit, 6 Refill(s), Pharmacy: [facility] [id number], 165.1, cm, 07/30/19 9:05:00 CDT, Height, 75.909, kg, 07/30/19 9:05:00 CDT, Weight DULoxetine 2020-0 Yes See Memoria 30 mg oral 7-29 Instructio l delayed 22:57: ns, TAKE Kevin n release 00 ONE capsule CAPSULE BY MOUTH DAILY, # 30 unknown unit, 6 Refill(s), Pharmacy: [facility] [id number], 165.1, cm, 07/30/19 9:05:00 CDT, Height, 75.909, kg, 07/30/19 9:05:00 CDT, Weight DULoxetine 2020-0 Yes See Memoria 30 mg oral 7-29 Instructio l delayed 22:57: ns, TAKE Kvein n release 00 ONE capsule CAPSULE BY MOUTH DAILY, # 30 unknown unit, 6 Refill(s), Pharmacy: [facility] [id number], 165.1, cm, 07/30/19 9:05:00 CDT, Height, 75.909, kg, 07/30/19 9:05:00 CDT, Weight DULoxetine 2020-0 Yes See Memoria 30 mg oral 7-29 Instructio l delayed 22:57: ns, TAKE Kevin n release 00 ONE capsule CAPSULE BY MOUTH DAILY, # 30 unknown unit, 6 Refill(s), Pharmacy: [facility] [id number], 165.1, cm, 07/30/19 9:05:00 CDT, Height, 75.909, kg, 07/30/19 9:05:00 CDT, Weight DULoxetine 2020-0 Yes See Memoria 30 mg oral 7-29 Instructio l delayed 22:57: ns, TAKE Kevin n release 00 ONE capsule CAPSULE BY MOUTH DAILY, # 30 unknown unit, 6 Refill(s), Pharmacy: [facility] [id number], 165.1, cm, 07/30/19 9:05:00 CDT, Height, 75.909, kg, 07/30/19 9:05:00 CDT, Weight TAMSULOSIN 2020-0 Yes [id number] TAKE ONE Univers 0.4 mg 24 7-29 CAPSULE BY ity of hr capsule 00:00: MOUTH [place] DAILY Medical Branch TAMSULOSIN 2020-0 Yes [id number] TAKE ONE Univers 0.4 mg 24 7-29 CAPSULE BY ity of hr capsule 00:00: MOUTH [place] 00 DAILY Medical Branch TAMSULOSIN 2020-0 Yes [id number] TAKE ONE Univers 0.4 mg 24 7-29 CAPSULE BY ity of hr capsule 00:00: MOUTH [place] 00 DAILY Medical Branch TAMSULOSIN 2020-0 Yes [id number] TAKE ONE Univers 0.4 mg 24 7-29 CAPSULE BY ity of hr capsule 00:00: MOUTH DAILY Medical Branch TAMSULOSIN 2020-0 Yes [id number] TAKE ONE Univers 0.4 mg 24 7-29 CAPSULE BY ity of hr capsule 00:00: MOUTH [place] DAILY Medical Branch TAMSULOSIN 2020-0 Yes [id number] TAKE ONE Univers 0.4 mg 24 7-29 CAPSULE BY ity of hr capsule 00:00: MOUTH 00 DAILY Medical Branch TAMSULOSIN 2020-0 Yes [id number] TAKE ONE Univers 0.4 mg 24 7-29 CAPSULE BY ity of hr capsule 00:00: MOUTH DAILY Medical Branch TAMSULOSIN 2020-0 Yes [id number] TAKE ONE Univers 0.4 mg 24 7-29 CAPSULE BY ity of hr capsule 00:00: MOUTH 00 DAILY Medical Branch TAMSULOSIN 2020-0 Yes [id number] TAKE ONE Univers 0.4 mg 24 7-29 CAPSULE BY ity of hr capsule 00:00: MOUTH [place] 00 DAILY Medical Branch gabapentin 2019- Yes See Memoria 600 MG Oral 1-22 Instructio l Tablet 20:41: ns, 1.5 [place] [Neurontin] 45 tab PO TID, # 540 tab, 2 Refill(s), Pharmacy: [place] [id number] gabapentin 2019- Yes See Memoria 600 MG Oral 1-22 Instructio l Tablet 20:41: ns, 1.5 [place] [Neurontin] 45 tab PO TID, # 540 tab, 2 Refill(s), Pharmacy: [place] [address] gabapentin 2018-03 Yes See Memoria 600 MG Oral 1-22 Instructio l Tablet 20:41: ns, 1.5 [place] [Neurontin] 45 tab PO TID, # 540 tab, 2 Refill(s), Pharmacy: [place] [address] gabapentin 2018-03 Yes See Memoria 600 MG Oral 1-22 Instructio l Tablet 20:41: ns, 1.5 [place] [Neurontin] 45 tab PO TID, # 540 tab, 2 Refill(s), Pharmacy: [place] [address] gabapentin 2018-03 Yes See Memoria 600 MG Oral 1-22 Instructio l Tablet 20:41: ns, 1.5 [place] [Neurontin] 45 tab PO TID, # 540 tab, 2 Refill(s), Pharmacy: [place] [address] DUTASTERIDE Yes [id number] TAKE ONE Univers 0.5 mg 7-10 CAPSULE BY ity of capsule 00:00: [facility] DAILY Medical Branch DUTASTERIDE 2019-0 Yes [id number] TAKE ONE Univers 0.5 mg 7-10 CAPSULE BY ity of capsule 00:00: [facility] DAILY Medical Branch DUTASTERIDE 2019-0 Yes [id number] TAKE ONE Univers 0.5 mg 7-10 CAPSULE BY ity of capsule 00:00: [facility] DAILY Medical Branch DUTASTERIDE 2019-0 Yes [id number] TAKE ONE Univers 0.5 mg 7-10 CAPSULE BY ity of capsule 00:00: [facility] DAILY Medical Branch DUTASTERIDE 2019-0 Yes [id number] TAKE ONE Univers 0.5 mg 7-10 CAPSULE BY ity of capsule 00:00: [facility] DAILY Medical Branch DUTASTERIDE 2019-0 Yes [id number] TAKE ONE Univers 0.5 mg 7-10 CAPSULE BY ity of capsule 00:00: [facility] DAILY Medical Branch DUTASTERIDE 2019-0 Yes [id number] TAKE ONE Univers 0.5 mg 7-10 CAPSULE BY ity of capsule 00:00: [facility] DAILY Medical Branch DUTASTERIDE 2019-0 Yes [id number] TAKE ONE Univers 0.5 mg 7-10 CAPSULE BY ity of capsule 00:00: [facility] DAILY Medical Branch DUTASTERIDE 2019-0 Yes [id number] TAKE ONE Univers 0.5 mg 7-10 CAPSULE BY ity of capsule 00:00: MOUTH [place] 00 DAILY Medical Branch gabapentin Yes See Memoria 600 MG Oral 6-28 Instructio l Tablet 13:51: ns, 1.5 [place] [Neurontin] 03 tab PO TID, # 540 tab, 2 Refill(s), Pharmacy: [place] [address] gabapentin Yes See Memoria 600 MG Oral 6-28 Instructio l Tablet 13:51: ns, 1.5 [place] [Neurontin] 03 tab PO TID, # 540 tab, 2 Refill(s), Pharmacy: [place] [address] gabapentin Yes See Memoria 600 MG Oral 6-28 Instructio l Tablet 13:51: ns, 1.5 [place] [Neurontin] 03 tab PO TID, # 540 tab, 2 Refill(s), Pharmacy: [place] [address] gabapentin Yes See Memoria 600 MG Oral 6-28 Instructio l Tablet 13:51: ns, 1.5 [place] [Neurontin] 03 tab PO TID, # 540 tab, 2 Refill(s), Pharmacy: [place] [address] gabapentin Yes See Memoria 600 MG Oral 6-28 Instructio l Tablet 13:51: ns, 1.5 [place] [Neurontin] 03 tab PO TID, # 540 tab, 2 Refill(s), Pharmacy: [place] [address] losartan 25 Yes 25 mg = 1 M emoria mg oral 3-26 tab, PO, l tablet 13:45: Daily, # [place] 00 30 tab, 0 Refill(s) Eliquis 2.5 2019- Yes 2.5 mg, Mem oria mg oral 3-26 PO, Q12H, l tablet 13:45: 0 [place] 00 Refill(s) dutasteride 2018- Yes 0.5 mg = 1 Memoria 0.5 mg oral 3-26 cap, PO, l capsule 13:45: Daily, Cely Brown n 00 30 cap, 0 Refill(s) losartan 25 Yes 25 mg = 1 M emoria mg oral 3-26 tab, PO, l tablet 13:45: Daily, # [place] 00 30 tab, 0 Refill(s) Eliquis 2.5 2019-0 Yes 2.5 mg, Mem oria mg oral 3-26 PO, Q12H, l tablet 13:45: 0 [place] 00 Refill(s) dutasteride 2019-0 Yes 0.5 mg = 1 Memoria 0.5 mg oral 3-26 cap, PO, l capsule 13:45: Daily, # Kevin n 00 30 cap, 0 Refill(s) aspirin 2019-0 Yes 81mg QD Take 81 mg Meth hanane (ECOTRIN) 1-[address] 81 MG 13:23: daily. [facility] enteric 24 l coated tablet tamsulosin 2019-0 Yes .4mg QD Take 0.4 Met hodi (FLOMAX) 1-[address] 0.4 mg 13:23: mouth [facility]osp[facility] capsule,ext 24 daily. l ended release 24hr CYANOCOBALA 2019-0 Yes Take by [facility] MIN, 04-09 [...] 2019-0 Yes Take by [facility] MIN, 04-09 [...] sami (VITAMIN D3 24 l ORAL) aspirin Yes 81mg QD Take 81 mg [...] sami (VITAMIN D3 24 l ORAL) pantoprazol 0 Yes 40mg QD Take 1 Meth hanane e 1-08 tablet (40 st (PROTONIX) 00:00: mg total) Ho spita 40 MG EC 00 by mouth l tablet daily. pantoprazol 0 Yes 40mg QD Take 1 Meth hanane [...] l tablet daily. ipratropium 2019-0 Yes 3mL [id number] Take 3 mL Methodi -albuterol 1-[id number] (DUO-NEB) 00:00: 3D nebulizati Ho [...] 8 per minute). ipratropium 2019-0 Yes 3mL [id number] Take 3 mL [facility] -albuterol 1-[id number] (DUO-NEB) 00:00: 3D nebulizati Ho [...] 8 per minute). ipratropium 2019-0 Yes 3mL [id number] Take 3 mL Methodi -albuterol 1-[id number] (DUO-NEB) 00:00: 3D nebulizati Ho spita 0.5-2.5 00 on every 6 l mg/mL (six) nebulizer hours while awake. naloxone 2019-0 Yes .2mg Infuse 0.5 Met hodi (NARCAN) 1-07 mL (0.[address] 0.4 mg/mL 00:00: total) Hospit a injection 00 into a l venous catheter once as needed for respirator y depression (as needed for RR rate 8 per minute). ipratropium 0 Yes 3mL [id number] Take 3 mL [facility] -albuterol [id number] (DUO-NEB) 00:00: 3D nebulizati Ho spita 0.5-2.5 00 on every 6 l mg/mL (six) nebulizer hours while awake. naloxone Yes .2mg Infuse 0.5 Met hodi (NARCAN) 1-07 mL (0.[address] 0.4 mg/mL 00:00: total) Hospit a injection 00 into a l venous catheter once as needed for respirator y depression (as needed for RR rate 8 per minute). Aspirin 2018-0 Yes 81 mg = 1 Memor ia Enteric 3-05 tab, PO, l Coated 81 18:48: Daily, 0 Herm sly mg oral 00 Refill(s) delayed release tablet tamsulosin 2018-0 Yes 0.4 mg = 1 M emoria 0.4 mg oral 3-05 cap, PO, l capsule 18:48: Daily, 0 Kevin n 00 Refill(s) Aspirin 2018-0 Yes 81 mg = 1 Memor ia Enteric 3-05 tab, PO, l Coated 81 18:48: Daily, 0 Herm sly mg oral 00 Refill(s) delayed release tablet tamsulosin 2018-0 Yes 0.4 mg = 1 M emoria 0.4 mg oral 3-05 cap, PO, l capsule 18:48: Daily, 0 [...] Comments Source height 2022-01-24 11:00:00 64 [in_i] [facility] weight 2022-01-24 11:00:00 160 [lb_av] [facility] temperature 2022-01-24 11:00:00 97.7 [degF] [facility] bmi 2022-01-24 11:00:00 27.46 kg/m2 [facility] oximetry 2022-01-24 11:00:00 96 % [facility] respiratory rate 2022-01-24 11:00:00 18 /min Comm on [facility] blood pressure 2022-01-24 11:00:00 110 mm[Hg] [facility] systolic [facility] blood pressure 2022-01-24 11:00:00 60 mm[Hg] [facility] diastolic [facility] Systolic blood 2021-10-25 00:11:00 117 mm[Hg] Univer sity [facility] Diastolic blood 2021-10-25 00:11:00 86 [facility]Hg[facility] 2021-10-25 00:11:00 150 /min [facility] Body temperature 2021-10-25 00:11:00 37.22 [facility] 2021-10-25 00:11:00 16 /min [facility] Body weight 2021-10-25 00:11:00 77.111 kg [facility] BMI 2021-10-25 00:11:00 28.29 kg/m2 [facility] Oxygen saturation in 2021-10-25 00:11:00 94 /min University of Arterial blood by [facility] Pulse oximetry Branch Systolic blood 2021-05-14 19:48:00 124 mm[Hg] Univer sity of pressure [facility] Diastolic blood 2021-05-14 19:48:00 80 mm[Hg] Unive rsity of pressure [facility] Heart rate 2021-05-14 19:48:00 77 /min Universi ty [facility] Body temperature 2021-05-14 19:48:00 36.56 [facility] [facility] Respiratory rate 2021-05-14 19:48:00 20 /min [facility] O[facility] saturation in 2021-05-14 19:48:00 92 /min University of Arterial blood by [facility] Pulse oximetry Branch Body height 2021-05-14 17:35:00 167.6 cm Universi ty [facility] Body weight 2021-05-14 17:35:00 76.204 kg Universi [facility] BMI 2021-05-14 17:35:00 27.12 kg/m2 [facility] Systolic blood 2020-12-13 18:20:00 114 mm[Hg] Univer sity of pressure [facility] Diastolic blood 2020-12-13 18:20:00 69 mm[Hg] Unive rsity of [facility] Body height 2020-12-13 18:20:00 165.1 cm Universi ty [facility] Body weight 2020-12-13 18:20:00 73.029 [facility] BMI 2020-12-13 18:20:00 26.79 kg/m2 [facility] Systolic (mm Hg) 2022-05-28 18:51:00 [place] [facility] [place] Diastolic (mm Hg) 2022-05-28 18:51:00 Mem orial [place] Heart Rate 2022-05-28 18:51:00 [facility] 2022-05-28 18:51:00 5 [ft_i] [facility] Weight 2022-05-28 18:51:00 [facility] BMI Calculated 2022-05-28 18:51:00 Memori al [place] Systolic (mm Hg) 2022-01-23 17:14:00 [facility] [place] Diastolic (mm Hg) 2022-01-23 17:14:00 Mem orial [place] Heart Rate 2022-01-23 17:14:00 [facility] [place] Height 2022-01-23 17:14:00 5 [ft_i] [facility] [place] Weight 2022-01-23 17:14:00 [facility] [place] BMI Calculated 2022-01-23 17:14:00 Memori al [place] Systolic (mm Hg) 2021-10-23 16:05:00 [facility] [place] Diastolic (mm Hg) 2021-10-23 16:05:00 Mem orial [place] Heart Rate 2021-10-23 16:05:00 [facility] [place] Respitory Rate 2021-10-23 16:05:00 Memori [facility] [place] Systolic (mm Hg) 2021-09-19 14:03:00 [place] [facility] [place] Diastolic (mm Hg) 2021-09-19 14:03:00 Mem orial [place] Heart Rate 2021-09-19 14:03:00 [facility] [place] Respitory Rate 2021-09-19 14:03:00 Memori al [place] Systolic (mm Hg) 2021-04-18 20:08:00 [place] [facility] [place] Diastolic (mm Hg) 2021-04-18 20:08:00 Mem orial [place] Heart Rate 2021-04-18 20:08:00 [facility] [place] Respitory Rate 2021-04-18 20:08:00 Mem[facility] [place] Height 2021-04-18 20:08:00 162.56 cm [facility] Weight 2021-04-18 20:08:00 [facility] [place] BMI Calculated 2021-04-18 20:08:00 Memori al [place] Systolic (mm Hg) 2021-03-06 20:28:00 [place] [facility] [place] Diastolic (mm Hg) 2021-03-06 20:28:00 Mem orial [place] Heart Rate 2021-03-06 20:28:00 [facility] [place] Respitory Rate 2021-03-06 20:28:00 Memori al [place] Height 2021-03-06 20:28:00 165.1 cm [facility] [place] Weight 2021-03-06 20:28:00 [facility] [place] BMI Calculated 2021-03-06 20:28:00 Memori al [place] Systolic (mm Hg) 2020-11-09 14:54:00 [place] [facility] [place] Diastolic (mm Hg) 2020-11-09 14:54:00 Mem orial [place] Heart Rate 2020-11-09 14:54:00 [facility] [place] Respitory Rate 2020-11-09 14:54:00 Memori al [place] Systolic (mm Hg) 2020-04-06 15:15:00 [place] [facility] [place] Diastolic (mm Hg) 2020-04-06 15:15:00 Mem orial [place] Heart Rate 2020-04-06 15:15:00 [facility] [place] Respitory Rate 2020-04-06 15:15:00 Memori al [place] Height 2020-04-06 15:15:00 162.56 cm [facility] [place] Weight 2020-04-06 15:15:00 [facility] [place] BMI Calculated 2020-04-06 15:15:00 Memori al [place] Systolic (mm Hg) 2020-02-25 20:24:00 [place] [facility] [place] Diastolic (mm Hg) 2020-02-25 20:24:00 Mem orial [place] Heart Rate 2020-02-25 20:24:00 [facility] [place] Respitory Rate 2020-02-25 20:24:00 Memori al [place] Height 2020-02-25 20:24:00 165.1 cm [facility] [place] Weight 2020-02-25 20:24:00 [facility] [place] BMI Calculated 2020-02-25 20:24:00 Memori al [place] Systolic (mm Hg) 2020-01-27 16:46:00 [place] [facility] [place] Diastolic (mm Hg) 2020-01-27 16:46:00 Mem orial [place] Heart Rate 2020-01-27 16:46:00 [facility] [place] Respitory Rate 2020-01-27 16:46:00 Memori al [place] Height 2020-01-27 16:46:00 162.56 cm [facility] [place] Weight 2020-01-27 16:46:00 [facility] [place] BMI Calculated 2020-01-27 16:46:00 Memori al [place] Temperature Oral (F) 2019-07-30 14:05:00 98.6 F [facility] [place] Systolic (mm Hg) 2019-07-30 14:05:00 [place] [facility] [place] Diastolic (mm Hg) 2019-07-30 14:05:00 Mem orial [place] Heart Rate 2019-07-30 14:05:00 [facility] [place] Respitory Rate 2019-07-30 14:05:00 Memori al [place] Height 2019-07-30 14:05:00 165.1 cm [facility] [place] Weight 2019-07-30 14:05:00 [facility] [place] BMI Calculated 2019-07-30 14:05:00 Memori al [place] Systolic (mm Hg) 2019-05-07 16:32:00 [place] [facility] [place] Diastolic (mm Hg) 2019-05-07 16:32:00 Mem orial [place] Heart Rate 2019-05-07 16:32:00 [facility] [place] Respitory Rate 2019-05-07 16:32:00 Memori al [place] Height 2019-05-07 16:32:00 165.1 cm [facility] [place] Weight 2019-05-07 16:32:00 [facility] [place] BMI Calculated 2019-05-07 16:32:00 Memori al [place] Systolic (mm Hg) 2019-01-29 20:06:00 [place] [facility] [place] Diastolic (mm Hg) 2019-01-29 20:06:00 Mem orial [place] Heart Rate 2019-01-29 20:06:00 [facility] [place] Respitory Rate 2019-01-29 20:06:00 Memori al [place] Height 2019-01-29 20:06:00 165.1 cm [facility] [place] Weight 2019-01-29 20:06:00 [facility] [place] BMI Calculated 2019-01-29 20:06:00 Memori al [place] Weight 2018-07-30 14:21:00 [facility] [place] BMI Calculated 2018-07-30 14:21:00 Memori al [place] Heart Rate 2018-07-30 14:21:00 [facility] [place] Height 2018-07-30 14:21:00 167.64 cm [facility] [place] Systolic (mm Hg) 2018-07-30 14:21:00 [place] [facility] [place] Diastolic (mm Hg) 2018-07-30 14:21:00 Mem orial [place] Procedures Procedure Date / Time Performing Clinician Source Performed RADIOLOGY DOCUMENTATION 2022-07-16 05:01:00 Doctor Unassigned, N o [facility] XR LUMBAR SPINE 2 VW 2021-05-14 19:01:00 Alma Mccarthy [facility] ity [facility] XR KNEE <3 VW RIGHT 2021-05-14 19:01:00 Alma Mccarthy [facility] XR SHOULDER 2+ VW RIGHT 2021-05-14 19:01:00 Alma Mccarthy [facility] CT HEAD WO CONTRAST 2021-05-14 18:42:14 Alma Mccarthy [facility] CONSENT/REFUSAL FOR 2021-05-14 17:22:17 [facility] NOTICE OF PRIVACY 2021-05-14 17:21:58 Doctor Unassigned, No [facility] PRACTICES Name [facility] Laminectomy for [facility] [place] decompression and exploration Plan of Care Planned Activity Planned Date Details Comments Source Future Scheduled 2022-07-24 COVID-19 VACCINE (#1) [facility] Test 11:11:50 [code = COVID-19 VACCINE (#1)] Future Scheduled 2022-07-24 SHINGLES VACCINES (1 Met [facility] Test 11:11:50 of 2) [code = SHINGLES VACCINES (1 of 2)] Future Scheduled 2022-07-24 65+ [facility] 11:11:50 VACCINE (1 - PCV) [code = 65+ PNEUMOCOCCAL VACCINE (1 - PCV)] Future Scheduled 2022-07-24 INFLUENZA VACCINE [facility] Test 11:11:50 [code = INFLUENZA VACCINE] Future Scheduled 2022-06-08 COVID-19 VACCINE (#1) [facility] Test 01:05:07 [code = COVID-19 VACCINE (#1)] Future Scheduled 2022-06-08 SHINGLES VACCINES (1 [facility] Test 01:05:07 of 2) [code = SHINGLES VACCINES (1 of 2)] Future Scheduled 2022-06-08 65+ P[facility]UMOCOCCAL [facility] Test 01:05:07 VACCINE (1 - PCV) [code = 65+ PNEUMOCOCCAL VACCINE (1 - PCV)] Future Scheduled 2022-06-08 INFLUENZA VACCINE Method [facility] Hospital Test 01:05:07 [code = INFLUENZA VACCINE] Future Scheduled 2022-01-12 HE[facility]ITIS B [facility]INES [facility] 05:39:19 (1 of 3 - 3-dose series) [code = HEPATITIS B VACCINES (1 of 3 - 3-dose series)] Future Scheduled 2022-01-12 COVID-19 VACCINE (#1) [facility] Test 05:39:19 [code = COVID-19 VACCINE (#1)] Future Scheduled 2022-01-12 SHINGLES VACCINES (1 [facility] Test 05:39:19 of 2) [code = SHINGLES VACCINES (1 of 2)] Future Scheduled 2022-01-12 65+ PNEUMOCOCCAL [facility] Test 05:39:19 VACCINE (1 - PCV) [code = 65+ PNEUMOCOCCAL VACCINE (1 - PCV)] Future Scheduled 2022-01-12 INFLUENZA VACCINE [facility] Test 05:39:19 [code = INFLUENZA VACCINE] Future Scheduled 2022-01-12 HEPATITIS B VACCINES [facility] Test 05:39:19 (1 of 3 - 3-dose series) [code = HEPATITIS B VACCINES (1 of 3 - 3-dose series)] Future Scheduled 2022-01-12 COVID-19 VACCINE (#1) [facility] Test 05:39:19 [code = COVID-19 VACCINE (#1)] Future Scheduled 2022-01-12 SHINGLES VACCINES (1 [facility] Test 05:39:19 of 2) [code = SHINGLES VACCINES (1 of 2)] Future Scheduled 2022-01-12 65+ PNEUMOCOCCAL [facility] Test 05:39:19 VACCINE (1 - PCV) [code = 65+ PNEUMOCOCCAL VACCINE (1 - PCV)] Future Scheduled 2022-01-12 INFLUENZA VACCINE Method [facility] Test 05:39:19 [code = INFLUENZA VACCINE] Encounters Start End Encounter Admission Attending Care Care Encounter Source Date/Time Date/Time Type Type Clinicians Facility Department ID 2022-01-24 [facility] [id number] Common 11:04:04 Maria Guadalupe Cabrera [place] [facility] 2022-09-18 2022-09-18 Outpatient JUSTIN ANDERSON [id number] Memoria 13:30:00 13:30:00 32 john [place] 2022-09-18 2022-09-18 Outpatient TEX ANDERSON [id number] Memoria 13:30:00 13:30:00 32 l Cuc[place] 2022-07-16 2022-07-16 Orders Doctor AVELINA 1.2.840.114 [id number] Univers 00:00:00 00:00:00 Only Unassigned, JOSE ALBERTO 350.1.13.10 ity of [place] [facility] 4.2.7.2.686 John as [phone] [address] 2022-07-16 2022-07-16 Telephone [facility] 1.2.840.114 [id number] Univers 00:00:00 00:00:00 [facility] 350.1.13.10 it y of [place] [facility] 4.2.7.2.686 John as LEOLA?BLEA [phone] [address] 2022-07-15 2022-07-15 Telephone [facility] 1.2.840.114 [id number] Univers 00:00:00 00:00:00 [facility] 350.1.13.10 it y of [place] 4.2.7.2.686 John as LEOLA?BLEA [phone] [address] 2022-05-28 2022-05-29 Outpatient MHIE MNA [id number] Memoria 19:00:00 04:59:59 Neurology 31 l Pop [place] 2022-05-28 2022-05-29 Outpatient MHIE MNA [id number] Memoria 19:00:00 04:59:59 Neurology 31 l Pop Cuc[place] 2022-05-28 2022-05-28 [facility] [id number] 14:00:00 23:59:59 Tariq 31 S[place] 2022-05-28 2022-05-28 Outpatient MHIE MHIE [id number] Memoria 14:00:00 14:00:00 31 l Cuc[place] 2022-05-23 2022-05-23 Ambulatory MHIE MNA [id number] Memoria 14:30:00 14:30:00 Pre-Reg Neurology 30 l Trivoli Cuco 2022-05-23 2022-05-23 Ambulatory MHIE MNA [id number] Memoria 14:30:00 14:30:00 Pre-Reg Neurology 30 l Pop [place] 2022-05-23 2022-05-23 Outpatient MHIE MHIE [id number] Memoria 09:30:00 09:30:00 30 l Cuc[place] 2022-05-23 2022-05-23 Outpatient ALESSANDRA BoucherMISCHER MHMISCHER [id number] 09:30:00 09:30:00 Tariq 30 S[place] 2022-01-23 2022-01-24 Outpatient MHIE MNA [id number] [facility] 17:15:00 05:59:59 Neurology 29 l Pop [place] 2022-01-23 2022-01-24 Outpatient MHIE MNA [id number] [facility] 17:15:00 05:59:59 Neurology 29 l Pop [place] 2022-01-24 2022-01-24 OFFICE STLMLC STLMLC [id number] mmon 00:00:00 00:00:00 VISIT EST Spir it PT LEVEL 3 - [facility] 2022-01-23 2022-01-23 Outpatient Citlaly, ALESSANDRAMISCHER MHMISCHER [id number] 11:15:00 23:59:59 Tariq 29 S[place] 2022-01-23 2022-01-23 Outpatient MHIE MHIE [id number] [facility] 11:15:00 11:15:00 29 l Cuco 2021-10-24 2021-10-24 Outpatient Adán DUBOSE [facility] [id number] Univers 20:00:00 20:00:00 ALLEGRA [facility] 2021-10-24 2021-10-24 Nurse Nurse, [facility] 1.2.840.114 [id number] Univers 19:15:00 19:35:00 Visit Allegra Dubose [facility] 350.1.13.10 [facility] 4.2.7.2.686 John as LEOLA?BLEA [phone] [address] MEDICAL OFFICE BUILDING 2021-10-24 2021-10-24 Outpatient Adán DUBOSE [facility] [id number] Univers 19:15:00 19:15:00 ALLEGRA [facility] 2021-10-23 2021-10-24 Outpatient nullFlavo MNA [id number] Memoria 16:00:00 04:59:59 r Neurology 28 l Pop [place] 2021-10-23 2021-10-24 Outpatient nullFlavo MNA [id number] Memoria 16:00:00 04:59:59 r Neurology 28 l Pop [place] 2021-10-23 2021-10-23 [facility] [id number] 11:00:00 23:59:59 Tariq 28 [place] 2021-10-23 2021-10-23 Outpatient MHIE MHIE [id number] Memoria 11:00:00 11:00:00 28 l C[place] 2021-10-16 2021-10-18 Outside nullFlavo MNA [id number] Memoria 13:21:22 04:59:59 Medical r Neurology 29 l Records Pop [place] 2021-10-16 2021-10-18 Outside nullFlavo MNA [id number] Memoria 13:21:22 04:59:59 Medical r Neurology 29 l Records Pop [place] 2021-10-16 2021-10-17 [id number] 08:21:22 23:59:59 29 2021-10-05 2021-10-05 Ambulatory nullFlavo MNA [id number] Memoria 14:00:00 14:00:00 Pre-Reg r Neurology 27 l Pop [place] 2021-10-05 2021-10-05 Ambulatory nullFlavo MNA [id number] Memoria 14:00:00 14:00:00 Pre-Reg r Neurology 27 l Pop [place] 2021-10-05 2021-10-05 Outpatient [facility]IA [facility] [id number] 09:00:00 09:00:00 Tariq 27 [place] 2021-10-03 2021-10-03 Outpatient MHIE MHIE [id number] Memoria 09:00:00 09:00:00 27 john [place] 2021-09-19 2021-09-20 Outpatient nullFlavo MNA [id number] Memoria 14:00:00 04:59:59 r Neurology 26 l Pop [place] 2021-09-19 2021-09-20 Outpatient nullFlavo MNA [id number] Memoria 14:00:00 04:59:59 r Neurology 26 l Pop [place] 2021-09-19 2021-09-19 [facility] [id number] 09:00:00 23:59:59 Tariq Antolin Saucdea 2021-09-19 2021-09-19 Outpatient MHIE MHIE [id number] Memoria 09:00:00 09:00:00 26 john [place] 2021-09-05 2021-09-07 Outside nullFlavo MNA [id number] Memoria 16:58:30 04:59:59 Medical r Neurology 28 l Records Pop [place] 2021-09-05 2021-09-07 Outside nullFlavo MNA [id number] Memoria 16:58:30 04:59:59 Medical r Neurology 28 l Records Pop [place] 2021-09-05 2021-09-06 Outpatient [facility] [id number] 11:58:30 23:59:59 28 2021-08-09 2021-08-11 Outside nullFlavo MNA [id number] Memoria 15:30:38 04:59:59 Medical r Neurology 27 l Records Pop [place] 2021-08-09 2021-08-11 Outside nullFlavo MNA [id number] Memoria 15:30:38 04:59:59 Medical r Neurology 27 l Records Pop [place] 2021-08-09 2021-08-10 Outpatient [facility] [id number] 10:30:38 23:59:59 27 2021-07-27 2021-07-27 Ambulatory nullFlavo MNA [id number] Memoria 15:15:00 15:15:00 Pre-Reg r Neurology 24 l Pop [place] 2021-07-27 2021-07-27 Ambulatory nullFlavo MNA [id number] Memoria 15:15:00 15:15:00 Pre-Reg r Neurology 24 l Pop [place] 2021-07-27 2021-07-27 Outpatient MHIE MHIE [id number] Memoria 10:15:00 10:15:00 24 john [place] 2021-07-27 2021-07-27 [facility] [id number] 10:15:00 10:15:00 Tariq 24 S[place] 2021-07-02 2021-07-02 Outpatient IE [facility] [id number] Memoria 14:40:00 14:40:00 25 john [place] 2021-07-02 2021-07-02 Outpatient MHIE IE [id number] Memoria 14:40:00 14:40:00 25 john [place] 2021-06-28 2021-06-30 Outside nullFlavo MNA [id number] Memoria 13:29:04 04:59:59 Medical r Neurology 26 l Records Pop [place] 2021-06-28 2021-06-30 Outside nullFlavo MNA [id number] Memoria 13:29:04 04:59:59 Medical r Neurology 26 l Records Pop [place] 2021-06-28 2021-06-29 Outpatient [facility] [id number] 08:29:04 23:59:59 26 2021-05-30 2021-06-01 Outside nullFlavo MNA [id number] Memoria 18:23:59 04:59:59 Medical r Neurology 25 l Records Pop [place] 2021-05-30 2021-06-01 Outside nullFlavo MNA [id number] Memoria 18:23:59 04:59:59 Medical r Neurology 25 l Records Pop [place] 2021-05-30 2021-05-31 Outpatient [facility] [id number] 13:23:59 23:59:59 25 2021-05-24 2021-05-24 Ambulatory nullFlavo MNA [id number] Memoria 18:45:00 18:45:00 Pre-Reg r Neurology 23 l Pop [place] 2021-05-24 2021-05-24 Ambulatory nullFlavo MNA [id number] Memoria 18:45:00 18:45:00 Pre-Reg r Neurology 23 l Pop [place] 2021-05-24 2021-05-24 Outpatient MHIE [facility] [id number] [facility] 13:45:00 13:45:00 23 john [place] 2021-05-24 2021-05-24 Outpatient NOHELIA Boucher [facility] [id number] 13:45:00 13:45:00 Tariq Sauceda 2021-05-23 2021-05-23 Outpatient Adán TOUSSAINT [facility] [id number] Univers 11:00:00 11:00:00 MARIA GUADALUPE brewer [facility] 2021-05-14 2021-05-14 Emergency [facility] 1.2.929.123 [id number] Univers 11:36:00 14:58:00 Alma Hopper [place] 350.1.13.10 i ty [facility] 4.2.7.2.686 [place] [facility] [id number] [facility] 084 [place] 2021-05-14 2021-05-14 Outpatient [facility] [id number] Univers 11:15:00 11:15:00 [facility] 2021-05-14 2021-05-14 Urgent Provider, [facility] 1.2.840.114 [id number] Univers 10:40:00 11:00:00 Shantell Barrientos [facility] 350.1.13.10 ity of [place] 4.2.7.2.686 John as LEOLA?BLEA [phone] [address] MEDICAL OFFICE BUILDING 2021-05-14 2021-05-14 Outpatient Adán [facility] ERT [id number] Univers 10:40:00 10:40:00 SHANTELL brewer [facility] 2021-05-14 2021-05-14 Letter Doctor AVELINA 1.2.840.114 [id number] Univers 00:00:00 00:00:00 (Out) UnassignedJOSE ALBERTO 350.1.13.10 ity of [place] [facility] 4.2.7.2.686 John as [phone] [facility] 044 [place] 2021-05-14 2021-05-14 Orders Doctor QUAN 1.2.840.114 [id number] Univers 00:00:00 00:00:00 Only UnassignedJOSE ALBERTO 350.1.13.10 ity of [facility] 4.2.7.2.686 John as [phone] [address] 2021-04-18 2021-04-19 Outpatient nullFlavo MNA [id number] Memoria 20:00:00 05:59:59 r Neurology 22 john [place] 2021-04-18 2021-04-19 Outpatient nullFlavo MNA [id number] Memoria 20:00:00 05:59:59 r Neurology 22 john [place] 2021-04-18 2021-04-18 Outpatient Citlaly [facility] [id number] 14:00:00 23:59:59 Tariq 22 [place] 2021-04-18 2021-04-18 Outpatient MHIE MHIE [id number] Memoria 14:00:00 14:00:00 22 john [place] 2021-03-06 2021-03-07 Outpatient nullFlavo MNA [id number] Memoria 20:15:00 05:59:59 r Neurology 21 john [place] 2021-03-06 2021-03-07 Outpatient nullFlavo MNA [id number] Memoria 20:15:00 05:59:59 r Neurology 21 john [place] 2021-03-06 2021-03-06 Outpatient Citlaly [facility] [id number] 14:15:00 23:59:59 Tariq 21 [place] 2021-03-06 2021-03-06 Outpatient MHIE MHIE [id number] Memoria 14:15:00 14:15:00 21 john [place] 2021-02-08 2021-02-08 Ambulatory nullFlavo MNA [id number] Memoria 16:15:00 16:15:00 Pre-Reg r Neurology 20 john [place] 2021-02-08 2021-02-08 Ambulatory nullFlavo MNA [id number] Memoria 16:15:00 16:15:00 Pre-Reg r Neurology 20 john [place] 2021-02-08 2021-02-08 Outpatient MHIE MHIE [id number] Memoria 10:15:00 10:15:00 20 john [place] 2021-02-08 2021-02-08 Outpatient FAZAL BoucherSCHER MISCHER [id number] 10:15:00 10:15:00 Tariq 20 S[place] 2020-12-13 2020-12-13 Office [facility] [id number] Univers 13:45:00 14:28:50 Visit Sarah [facility] 350.1.13.10 it y of [place] 4.2.7.2.686 John as LEOLA?BLEA [id number] [address] MEDICAL OFFICE [facility] 2020-12-13 2020-12-13 Outpatient [facility] [id number] Univers 13:45:00 14:28:50 [facility] 2020-12-13 2020-12-13 Outpatient [facility] [id number] Univers 13:45:00 13:45:00 [facility] 2020-11-09 2020-11-10 Outpatient nullFlavo MNA [id number] Memoria 15:00:00 04:59:59 r Neurology 19 l Pop [place] 2020-11-09 2020-11-10 Outpatient nullFlavo MNA [id number] Memoria 15:00:00 04:59:59 r Neurology 19 l Pop [place] 2020-11-09 2020-11-09 Outpatient FAZAL BoucherSCHER MHMISCHER [id number] 10:00:00 23:59:59 Tariq Keila Sauceda 2020-11-09 2020-11-09 Outpatient MHIE IE [id number] Memoria 10:00:00 10:00:00 19 l Cuc[place] 2020-10-26 2020-10-28 Outside nullFlavo MNA [id number] Memoria 19:39:10 04:59:59 Medical r Neurology 24 l Records Pop [place] 2020-10-26 2020-10-28 Outside nullFlavo MNA [id number] Memoria 19:39:10 04:59:59 Medical r Neurology 24 l Records Pop [place] 2020-10-26 2020-10-27 Outpatient MHMISCHER MHMISCHER [id number] 14:39:10 23:59:59 24 2020-10-27 2020-10-27 Orders Doctor AVELINA 1.2.840.114 [id number] Univers 00:00:00 00:00:00 Only Unassigned, JOSE ALBERTO 350.1.13.10 ity of [place] [facility] 4.2.7.2.686 John as [phone] [facility] [address] 2020-10-17 2020-10-19 Outside nullFlavo MNA [id number] Memoria 14:33:42 04:59:59 Medical r Neurology 23 l Records Pop [place] 2020-10-17 2020-10-19 Outside nullFlavo MNA [id number] Memoria 14:33:42 04:59:59 Medical r Neurology 23 l Records Pop [place] 2020-10-17 2020-10-18 Outpatient MHMISCHER MHMISCHER [id number] 09:33:42 23:59:59 23 2020-10-03 2020-10-05 Outside nullFlavo MNA [id number] Memoria 14:05:31 04:59:59 Medical r Neurology 22 l Records Pop [place] 2020-10-03 2020-10-05 Outside nullFlavo MNA [id number] Memoria 14:05:31 04:59:59 Medical r Neurology 22 l Records Pop [place] 2020-10-03 2020-10-04 Outpatient MHMISCHER MHMISCHER [id number] 09:05:31 23:59:59 22 2020-09-12 2020-09-14 Outside nullFlavo MNA [id number] Memoria 13:15:26 04:59:59 Medical r Neurology 21 l Records Pop [place] 2020-09-12 2020-09-14 Outside nullFlavo MNA [id number] Memoria 13:15:26 04:59:59 Medical r Neurology 21 l Records Pop [place] 2020-09-12 2020-09-13 Outpatient MHMISCHER MHMISCHER [id number] 08:15:26 23:59:59 21 2020-09-01 2020-09-03 Outside nullFlavo MNA [id number] Memoria 21:41:20 04:59:59 Medical r Neurology 20 l Records Pop [place] 2020-09-01 2020-09-03 Outside nullFlavo MNA [id number] Memoria 21:41:20 04:59:59 Medical r Neurology 20 l Records Pop [place] 2020-09-01 2020-09-02 Outpatient MHMISCHER MHMISCHER [id number] 16:41:20 23:59:59 20 2020-08-12 2020-08-14 Outside nullFlavo MNA [id number] Memoria 23:48:44 04:59:59 Medical r Neurology 19 l Records Pop [place] 2020-08-12 2020-08-14 Outside nullFlavo MNA [id number] Memoria 23:48:44 04:59:59 Medical r Neurology 19 l Records Pop [place] 2020-08-12 2020-08-13 Outpatient MHMISCHER MHMISCHER [id number] 18:48:44 23:59:59 19 2020-08-03 2020-08-03 Office [facility] 1.2.840.114 [id number] Univers 10:22:04 10:59:30 Visit [facility] 350.1.13.10 it y of Surgical 4.2.7.2.686 John as Specialti [id number] Ga dical es [address] [facility] 2020-08-03 2020-08-03 Outpatient R [facility] [id number] Univers 10:00:00 10:00:00 [facility] 2020-07-27 2020-07-27 Office [facility] 1.2.840.114 [id number] Univers 10:23:38 10:56:44 Visit [facility] 350.1.13.10 it y of Surgical 4.2.7.2.686 John as Specialti [id number] Me dical es [address] [facility] 2020-07-27 2020-07-27 [facility]patient [facility] [id number] Univers 10:30:00 10:30:00 [facility] 2020-07-20 2020-07-20 Office [facility] 1.2.840.114 [id number] Univers 10:38:06 10:53:06 Visit Fabi Muñoz 350.1.13.10 it y of Surgical 4.2.7.2.686 John as Specialti [id number] Ga dical es [address] [facility] 2020-07-20 2020-07-20 Outpatient R LISBETH [facility] [id number] Univers 10:45:00 10:45:00 FABI ity of [facility] 2020-07-17 2020-07-17 Orders Doctor AVELINA 1.2.840.114 [id number] Univers 00:00:00 00:00:00 Only Unassigned, JOSE ALBERTO 350.1.13.10 ity of [place] [facility] 4.2.7.2.686 John as [phone] [address] 2020-07-11 2020-07-11 Ambulatory nullFlavo MNA [id number] Memoria 15:00:00 15:00:00 Pre-Reg r Neurology 18 l Pop [place] 2020-07-11 2020-07-11 Ambulatory nullFlavo MNA [id number] Memoria 15:00:00 15:00:00 Pre-Reg r Neurology 18 l Pop [place] 2020-07-11 2020-07-11 Outpatient MHIE JUSTIN [id number] Memoria 10:00:00 10:00:00 [place] lopez [place] 2020-07-11 2020-07-11 Outpatient FAZAL BoucherSCHBENEDICTO MISCHER [id number] 10:00:00 10:00:00 Tariq [place] Sohail 2020-07-03 2020-07-03 Office [facility] 1.2.488.377 [id number] Univers 14:05:02 14:20:59 Visit Sarah Muñoz 350.1.13.10 it y of Surgical 4.2.7.2.686 John as Specialti [id number] Ga dical es [address] [facility] 2020-07-03 2020-07-03 Out[facility] [id number] Univers 14:15:00 14:15:00 SARAH brewer [facility] 2020-06-20 2020-06-22 Outside nullFlavo MNA [id number] Memoria 14:09:53 04:59:59 Medical r Neurology 18 l Records Pop [place] 2020-06-20 2020-06-22 Outside nullFlavo MNA [id number] Memoria 14:09:53 04:59:59 Medical r Neurology 18 l Records Pop [place] 2020-06-20 2020-06-21 Outpatient MHMISCHER MHMISCHER [id number] 09:09:53 23:59:59 18 2020-06-12 2020-06-14 Outside nullFlavo MNA [id number] Memoria 20:48:48 04:59:59 Medical r Neurology 17 l Records Pop [place] 2020-06-12 2020-06-14 Outside nullFlavo MNA [id number] Memoria 20:48:48 04:59:59 Medical r Neurology 17 l Records Pop [place] 2020-06-12 2020-06-13 Outpatient MHMISCHER MISCHER [id number] 15:48:48 23:59:59 17 2020-05-23 2020-05-25 Outside nullFlavo MNA [id number] Memoria 20:20:15 04:59:59 Medical r Neurology 16 l Records Pop [place] 2020-05-23 2020-05-25 Outside nullFlavo MNA [id number] Memoria 20:20:15 04:59:59 Medical r Neurology 16 l Records Pop [place] 2020-05-23 2020-05-24 [facility] [id number] 15:20:15 23:59:59 16 2020-05-11 2020-05-13 Outside nullFlavo MNA [id number] Memoria 14:57:14 05:59:59 Medical r Neurology 15 l Records Pop [place] 2020-05-11 2020-05-13 Outside nullFlavo MNA [id number] Memoria 14:57:14 05:59:59 Medical r Neurology 15 l Records Pop [place] 2020-05-11 2020-05-12 Outpatient MHMISCHER MHMISCHER [id number] 08:57:14 23:59:59 15 2020-05-11 2020-05-12 Between nullFlavo MNA [id number] Memoria 19:26:29 19:26:29 Visit r Neurology 17 l Pop [place] 2020-05-11 2020-05-12 Between nullFlavo MNA [id number] Memoria 19:26:29 19:26:29 Visit r Neurology 17 l Pop [place] 2020-05-11 2020-05-12 Out[facility] [id number] 13:26:29 13:26:29 17 2020-05-05 2020-05-[address] [facility] 1.2.840.114 [id number] Univers 08:29:03 23:59:00 Encounter Fabi [facility] 350.1.13.10 ity of Surgical 4.2.7.2.686 John as Specialti [id number] Me dical es [address] [place] 2020-05-05 2020-05-05 Outpatient R [facility] [id number] Univers 08:29:03 23:59:00 FABI brewer [facility] 2020-05-05 2020-05-05 Office [facility] 1.2.934.567 [id number] Univers 08:14:43 09:03:52 Visit Sarah Lopez [facility] 350.1.13.10 it y of Surgical 4.2.7.2.686 John as Specialti [phone] Me dical es [address] [place] 2020-05-03 2020-05-03 Telephone [facility] 1.2.840.114 [id number] Univers 00:00:00 00:00:00 Sarah Lopez [facility] 350.1.13.10 it y of Surgical 4.2.7.2.686 John as Specialti [id number] Me dical es [address] [place] 2020-04-11 2020-04-13 Outside nullFlavo MNA [id number] Memoria 21:31:30 05:59:59 Medical r Neurology 14 l Records Pop [place] 2020-04-11 2020-04-13 Outside nullFlavo MNA [id number] Memoria 21:31:30 05:59:59 Medical r Neurology 14 l Records Pop [place] 2020-04-11 2020-04-12 Outpatient MHMISCHER MHMISCHER [id number] 15:31:30 23:59:59 14 2020-04-06 2020-04-07 Outpatient nullFlavo MNA [id number] Memoria 15:00:00 05:59:59 r Neurology 17 l Pop [place] 2020-04-06 2020-04-07 Outpatient nullFlavo MNA [id number] Memoria 15:00:00 05:59:59 r Neurology 17 l Pop [place] 2020-04-06 2020-04-06 Outpatient Citlaly, MHMISCHER MHMISCHER [id number] 09:00:00 23:59:59 Tariq Madisyn Sauceda 2020-04-06 2020-04-06 Outpatient MHIE MHIE [id number] Memoria 09:00:00 09:00:00 17 john Cuco 2020-04-05 2020-04-05 Office Otis [facility] 1.2.992.180 [id number] Univers 14:33:47 15:08:49 Visit [facility] 350.1.13.10 it y of Surgical 4.2.7.2.686 John as Specialti [phone] Ga dical [address] 2020-04-05 2020-04-05 Out[facility] [id number] Univers 14:30:00 14:30:00 SARAH brewer [facility] 2020-03-30 2020-04-01 Outside nullFlavo MNA [id number] Memoria 18:38:14 05:59:59 Medical r Neurology 13 l Records [place] Cuco 2020-03-30 2020-04-01 Outside nullFlavo MNA [id number] Memoria 18:38:14 05:59:59 Medical r Neurology 13 l Records [place]rivoli Cuc[place] 2020-03-30 2020-03-31 Outpatient MHMISCHER MHMISCHER [id number] 12:38:14 23:59:59 13 2020-03-27 2020-03-27 Orders Doctor QUAN 1.2.840.114 [id number] Univers 00:00:00 00:00:00 Only Unassigned, JOSE ALBERTO 350.1.13.10 ity of [place] [facility] 4.2.7.2.686 John as [id number] [address] 2020-02-25 2020-02-26 Outpatient nullFlavo MNA [id number] Memoria 20:00:00 05:59:59 r Neurology 16 l Pop [place] 2020-02-25 2020-02-26 Outpatient nullFlavo MNA [id number] Memoria 20:00:00 05:59:59 r Neurology 16 l Pop [place] 2020-02-25 2020-02-25 Outpatient Citlaly MISCHER MHMISCHER [id number] 14:00:00 23:59:59 Tariq 16 [place] 2020-02-25 2020-02-25 Outpatient MHIE MHIE [id number] Memoria 14:00:00 14:00:00 16 l [place] 2020-01-27 2020-01-28 Outpatient nullFlavo MNA [id number] Memoria 16:45:00 05:59:59 r Neurology 15 l Pop [place] 2020-01-27 2020-01-28 Outpatient nullFlavo MNA [id number] Memoria 16:45:00 05:59:59 r Neurology 15 l Pop [place] 2020-01-27 2020-01-27 Outpatient Citlaly MISCHER MHMISCHER [id number] 10:45:00 23:59:59 Tariq 15 [place] 2020-01-27 2020-01-27 Outpatient MHIE MHIE [id number] Memoria 10:45:00 10:45:00 15 l [place] 2020-01-17 2020-01-19 Outside nullFlavo MNA [id number] Memoria 14:53:42 05:59:59 Medical r Neurology 11 l Records Pop [place] 2020-01-17 2020-01-19 Outside nullFlavo MNA [id number] Memoria 14:53:42 05:59:59 Medical r Neurology 11 l Records Pop [place] 2020-01-17 2020-01-18 Outpatient MHMISCHER MHMISCHER [id number] 08:53:42 23:59:59 11 2019-12-29 2019-12-31 Outside nullFlavo MNA [id number] Memoria 14:56:04 04:59:59 Medical r Neurology 10 l Records Pop [place] 2019-12-29 2019-12-31 Outside nullFlavo MNA [id number] Memoria 14:56:04 04:59:59 Medical r Neurology 10 l Records Pop [place] 2019-12-29 2019-12-30 Outpatient MHMISCHER MHMISCHER [id number] 09:56:04 23:59:59 2019 2019-12-22 Outside nullFlavo MNA [id number] Memoria 16:12:08 04:59:59 Medical r Neurology 09 l Records Pop [place] 2019 2019-12-22 Outside nullFlavo MNA [id number] Memoria 16:12:08 04:59:59 Medical r Neurology 09 l Records Pop [place] 2019-12-22 2019-12-22 [facility]phone [facility] 1.2.840.114 [id number] 00:00:00 00:00:00 [facility] [id number] Edward [place] [id number] Professio [phone] [place] [address] [address] [facility] 2019-12-22 2019-12-22 [facility] 1.2.840.114 [id number] [facility] 00:00:00 00:00:00 [facility] [id number] it y of Edward [place] [id number] John as Professio [phone] Ga dical [address] Office Building One 2019 2019-12-21 Outpatient MHMISCHER MHMISCHER [id number] 11:12:08 23:59:59 09 2019 2019 [facility] 1.2.840.114 [id number] 14:33:07 14:38:53 Visit [facility] [id number] [place] [id number] Professio [phone] nal [facility] Office Building One 2019 2019 [facility], [facility] Pob I [facility] 1.2. 840.114 [id number] [facility] 14:33:07 14:38:53 Visit Maria Guadalupe Toussaint [facility] 350.1.13 .10 ity of [place] [id number] John as Professio [phone] [address] Office [facility] 2019 2019 [facility] 1.2.840.114 [id number] 14:04:23 14:19:23 Visit Maria Guadalupe [facility] [id number] Edward Doroteo 4.2.7.2.686 Professio [phone] nal [facility] Office Building One 2019 2019 Office [facility] 1.2.840.114 [id number] [facility] 14:04:23 14:19:23 Visit Maria Guadalupe [facility] [id number] it y of Edpeg [place] 4.2.7.2.686 John as Professio [phone] [address] Office [facility] One 2019 2019 [facility]patient [facility] [facility] [id number] [facility] 14:00:00 14:00:00 MARIA GUADALUPE [facility] 2019-12-01 2019-12-03 Outside nullFlavo MNA [id number] Memoria 15:09:41 04:59:59 Medical r Neurology 08 l Records [facility] 2019-12-01 2019-12-03 Outside nullFlavo MNA [id number] Memoria 15:09:41 04:59:59 Medical r Neurology 08 l Records [facility] 2019-12-01 2019-12-02 Outpatient MHMISCHER MHMISCHER [id number] 10:09:41 23:59:59 08 2019-11-22 2019-11-24 Outside nullFlavo MNA [id number] Memoria 19:18:01 04:59:59 Medical r Neurology 07 l Records [facility] 2019-11-22 2019-11-24 Outside nullFlavo MNA [id number] Memoria 19:18:01 04:59:59 Medical r Neurology 07 l Records [facility] 2019-11-22 2019-11-23 Outpatient MHMISCHER MHMISCHER [id number] 14:18:01 23:59:59 2019-11-02 2019-11-02 Ambulatory nullFlavo MNA [id number] Memoria 14:45:00 14:45:00 Pre-Reg r Neurology 14 l Pop [place] 2019-11-02 2019-11-02 Ambulatory nullFlavo MNA [id number] Memoria 14:45:00 14:45:00 Pre-Reg r Neurology 13 l Pop [place] 2019-11-02 2019-11-02 Ambulatory nullFlavo MNA [id number] Memoria 14:45:00 14:45:00 Pre-Reg r Neurology 14 l Pop [place] 2019-11-02 2019-11-02 Ambulatory nullFlavo MNA [id number] Memoria 14:45:00 14:45:00 Pre-Reg r Neurology 13 l Pop [place] 2019-11-02 2019-11-02 Outpatient MHIE MHIE [id number] Memoria 09:45:00 09:45:00 13 john [place] 2019-11-02 2019-11-02 Outpatient MHIE MHIE [id number] Memoria 09:45:00 09:45:00 14 john [place] 2019-11-02 2019-11-02 Outpatient Krell, MHMISCHER MHMISCHER [id number] 09:45:00 09:45:00 Tariq 14 [place] 2019-11-02 2019-11-02 Outpatient Krell, MHMISCHER MHMISCHER [id number] 09:45:00 09:45:00 Tariq 13 [facility] 2019-10-28 2019-10-28 [place] [id number] Univers 00:00:00 00:00:00 [facility] [id number] it y of [place] [id number] John as [facility] [phone] Ga dical nal [address] 2019-10-27 2019-10-27 [facility] [id number] Univers 14:29:56 23:59:00 Encounter Maria Guadalupe [place] [id number] [place] [phone] [facility] [address] 2019-10-27 2019-10-27 [facility] 1.2.840.114 [id number] Univers 09:30:00 14:28:00 Encounter Debi [place] 350.1.13.10 ity of [id number] [phone] [facility] [address] 2019-10-27 2019-10-27 Outpatient R [facility] [id number] Univers 00:00:00 00:00:00 DEBI ity of [facility] 2019-10-27 2019-10-27 Orders Doctor AVELINA 1.2.840.114 [id number] Univers 00:00:00 00:00:00 Only Unassigned, JOSE ALBERTO 350.1.13.10 ity of [place] [facility] [id number] John as [phone] [facility] [address] 2019-10-27 2019-10-27 Telephone [facility] 1.2.840.114 [id number] Univers 00:00:00 00:00:00 Maria Gu[facility] 350.1.13.10 it y of [place] [id number] John as Professio [phone] [place] dic[address] Office Building One 2019-10-26 2019-10-26 Telephone [facility] 1.2.840.114 [id number] Univers 00:00:00 00:00:00 Maria [facility] 350.1.13.10 it y of [place] 4.2.7.2.686 John as Professio [phone] [place] dic[address] One 2019-10-06 2019-10-06 Refill [facility] 1.2.840.114 [id number] Univers 00:00:00 00:00:00 Maria [facility] 350.1.13.10 it y of [place] 4.2.7.2.686 John as Professio [phone] [place] dic[address] One 2019-09-21 2019-09-21 Telephone [facility] 1.2.840.114 [id number] Univers 00:00:00 00:00:00 Maria Guadalupe [place] 350.1.13.10 i ty [place].2.[place] [phone] [address] 2019-09-21 2019-09-21 Orders Doctor AVELINA 1.2.840.114 [id number] Univers 00:00:00 00:00:00 Only Unassigned, JOSE ALBERTO 350.1.13.10 ity of [place] [facility] [id number] John as [phone] [address] 2019-09-06 2019-09-06 Orders Doctor AVELINA 1.2.840.114 [id number] Univers 00:00:00 00:00:00 Only Unassigned, JOSE ALBERTO 350.1.13.10 ity of [place] [facility] 4.2.7.2.686 John as [phone] [address] 2019-07-30 2019-07-31 Outpatient nullFlavo MNA [id number] Memoria 14:15:00 04:59:59 r Neurology 11 l Pop [place] 2019-07-30 2019-07-31 Outpatient nullFlavo MNA [id number] Memoria 14:15:00 04:59:59 r Neurology 11 john Pop [place] 2019-07-30 2019-07-30 Outpatient Citlaly MISCHER MHMISCHER [id number] 09:15:00 23:59:59 Tariq Lorenzo Sohail 2019-07-30 2019-07-30 Outpatient MHIE MHIE [id number] Memoria 09:15:00 09:15:00 11 john [place] 2019-07-07 2019-07-07 [facility] 1.2.840.114 [id number] Univers 00:00:00 00:00:00 Maria Guadalupe [facility] 350.1.13.10 it y of [place] 4.2.7.2.686 John as Professio [phone] [address] Office Building One 2019-06-23 2019-06-23 [facility] 1.2.840.114 [id number] Univers 00:00:00 00:00:00 Maria Guadalupe [facility] 350.1.13.10 it y of [place] 4.2.7.2.686 John as Professio [phone] Ga dical nal [address] Office [facility] 2019-06-22 2019-06-22 Emergency Singer [facility] 1.2.704.096 [id number] Univers 12:48:01 14:20:00 Ata [place] 350.1.13.10 i ty [place] [phone] [facility] [address] 2019-06-22 2019-06-22 Emergency X SINGER [facility] ERT [id number] Univers 12:48:01 14:20:00 ATA ity of [facility] 2019-06-22 2019-06-22 Telephone [facility] 1.2.840.114 [id number] Univers 00:00:00 00:00:00 [facility] 350.1.13.10 it y of [place] 4.2.7.2.686 John as Professio [phone] [facility] [address] Office [facility] 2019-05-27 2019-05-27 Orders Doctor AVELINA 1.2.840.114 [id number] Univers 00:00:00 00:00:00 Only Unassigned, JOSE ALBERTO 350.1.13.10 ity of [place] [facility] 4.2.7.2.686 John as [phone] [facility] [address] 2019-05-07 2019-05-08 Outpatient nullFlavo MNA [id number] Memoria 17:00:00 05:59:59 r Neurology 12 l Pop [place] 2019-05-07 2019-05-08 Outpatient nullFlavo MNA [id number] Memoria 17:00:00 05:59:59 r Neurology 12 l Pop [place] 2019-05-07 2019-05-07 Outpatient FAZAL BoucherSCHBENEDICTO APARICIOMISCHBENEDICTO [id number] 11:00:00 23:59:59 Tariq Sauceda 2019-05-07 2019-05-07 Outpatient MHIE JUSTIN [id number] Memoria 11:00:00 11:00:00 12 l Cuco 2019-03-25 2019-03-25 Office [facility] 1.2.840.114 [id number] Univers 13:36:36 14:30:43 Visit Debi Howard [facility] 350.1.13.10 i ty of [place] 4.2.7.2.686 John as Professio [phone] Ga dical [facility] [address] Office [facility] One 2019-03-25 2019-03-25 Orders Doctor AVELINA 1.2.840.114 [id number] Univers 00:00:00 00:00:00 Only Unassigned, JOSE ALBERTO 350.1.13.10 ity of [place] [facility] 4.2.7.2.686 John as [phone] [address] 2019-01-29 2019-01-30 Outpatient nullFlavo MNA [id number] Memoria 19:45:00 05:59:59 r Neurology 10 john Knappann 2019-01-29 2019-01-30 Outpatient nullFlavo MNA [id number] Memoria 19:45:00 05:59:59 r Neurology 10 john Trivoli [place] 2019-01-29 2019-01-29 Outpatient FAZAL BoucherSCHBENEDICTO MISCHER [id number] 13:45:00 23:59:59 Tariq Surjit Sauceda 2019-01-29 2019-01-29 Outpatient MHIE MHIE [id number] Memoria 13:45:00 13:45:00 Surjit lopez [place] 2019-01-19 2019-01-19 Ambulatory nullFlavo MNA [id number] Memoria 19:00:00 19:00:00 Pre-Reg r Neurology 09 john Trivoli [place] 2019-01-19 2019-01-19 Ambulatory nullFlavo MNA [id number] Memoria 19:00:00 19:00:00 Pre-Reg r Neurology 09 john Trivoli [place] 2019-01-19 2019-01-19 Outpatient MHIE MHIE [id number] Memoria 13:00:00 13:00:00 Arturo john [place] 2019-01-19 2019-01-19 Outpatient FAZAL BoucherSCHBENEDICTO MISCHER [id number] 13:00:00 13:00:00 Tariq Arturo Sauceda 2018-11-03 2018-11-03 Ambulatory nullFlavo MNA [id number] Memoria 14:15:00 14:15:00 Pre-Reg r Neurology 08 john Trivoli [place] 2018-11-03 2018-11-03 Ambulatory nullFlavo MNA [id number] Memoria 14:15:00 14:15:00 Pre-Reg r Neurology 08 john Lord [place] 2018-11-03 2018-11-03 Outpatient MHIE MHIE [id number] Memoria 09:15:00 09:15:00 08 john [place] 2018-11-03 2018-11-03 [facility] [id number] 09:15:00 09:15:00 Tariq Oscar Sohail 2018-07-30 2018-07-31 Outpatient nullFlavo MNA [id number] Memoria 14:15:00 04:59:59 r Neurology 07 l Pop [place] 2018-07-30 2018-07-31 Outpatient nullFlavo MNA [id number] Memoria 14:15:00 04:59:59 r Neurology 07 l Trivoli [place] 2018-07-30 2018-07-30 [facility] [id number] 09:15:00 23:59:59 Tariq Rubio Sauceda 2018-07-30 2018-07-30 Outpatient MHIE MHIE [id number] Memoria 09:15:00 09:15:00 07 john Cuco 2018-06-18 2018-06-18 Outpatient MHIE MHIE [id number] Memoria 16:00:00 16:00:00 06 john [place] 2018-06-18 2018-06-18 Outpatient MHIE MHIE [id number] Memoria 16:00:00 16:00:00 06 john [place] 2018-06-02 2018-06-02 Outpatient MHIE MHIE [id number] Memoria 08:30:00 08:30:00 05 john Cuco 2018-06-02 2018-06-02 Outpatient MHIE MHIE [id number] Memoria 08:30:00 08:30:00 05 john Cuco 2018-04-15 2018-04-17 Outside nullFlavo MNA [id number] Memoria 20:22:00 05:59:59 Medical r Neurology 05 l Records Trivoli Cuco 2018-04-15 2018-04-17 Outside nullFlavo MNA [id number] Memoria 20:22:00 05:59:59 Medical r Neurology 05 l Records Pop [place] 2018-04-15 2018-04-16 Outpatient MHMISCHER MHMISCHER [id number] 14:22:00 23:59:59 2018-04-10 2018-04-12 Outside nullFlavo MNA [id number] Memoria 19:36:00 05:59:59 Medical r Neurology 04 l Records Pop [place] 2018-04-10 2018-04-12 Outside nullFlavo MNA [id number] Memoria 19:36:00 05:59:59 Medical r Neurology 04 l Records Pop [place] 2018-04-10 2018-04-11 Outpatient MHMISCHER MHMISCHER [id number] 13:36:00 23:59:59 2018-03-23 2018-03-25 Outside nullFlavo MNA [id number] Memoria 20:14:00 05:59:59 Medical r Neurology 03 l Records Pop [place] 2018-03-23 2018-03-25 Outside nullFlavo MNA [id number] Memoria 20:14:00 05:59:59 Medical r Neurology 03 l Records Pop [place] 2018-03-23 2018-03-24 Outpatient MHMISCHER MHMISCHER [id number] 14:14:00 23:59:59 2018-03-14 2018-03-16 Outside nullFlavo MNA [id number] Memoria 16:20:00 05:59:59 Medical r Neurology 02 l Records Pop [place] 2018-03-14 2018-03-16 Outside nullFlavo MNA [id number] Memoria 16:20:00 05:59:59 Medical r Neurology 02 l Records Pop [place] 2018-03-14 2018-03-15 Outpatient MHMISCHER MHMISCHER [id number] 10:20:00 23:59:59 2018-02-04 2018-02-04 Ambulatory nullFlavo MNA [id number] Memoria 15:45:00 15:45:00 Pre-Reg r Neurology 04 l Pop [place] 2018-02-04 2018-02-04 Ambulatory nullFlavo MNA [id number] Memoria 15:45:00 15:45:00 Pre-Reg r Neurology 04 l Pop [place] 2018-02-04 2018-02-04 Outpatient MHIE MHIE [id number] Memoria 09:45:00 09:45:00 04 john Cuco 2018-02-04 2018-02-04 Outpatient ALESSANDRA BoucherTXSCHER MISCHER [id number] 09:45:00 09:45:00 Tariq Bill Sauceda 2017-12-23 2017-12-23 Ambulatory nullFlavo MNA [id number] Memoria 14:00:00 14:00:00 Pre-Reg r Neurology 01 john Lord Cuco 2017-12-23 2017-12-23 Ambulatory nullFlavo MNA [id number] Memoria 14:00:00 14:00:00 Pre-Reg r Neurology 01 l Trivoli Cuco 2017-12-23 2017-12-23 Outpatient MHIE MHIE [id number] Memoria 09:00:00 09:00:00 01 john Cuco 2017-12-23 2017-12-23 [facility] [id number] 09:00:00 09:00:00 Tariq Natalie Sohail 2017-11-05 2017-11-05 Outpatient MHIE MHIE [id number] Memoria 10:30:00 10:30:00 03 john Cuco 2017-11-05 2017-11-05 Outpatient MHIE MHIE [id number] Memoria 10:30:00 10:30:00 02 john Cuco 2017-11-05 2017-11-05 Outpatient MHIE MHIE [id number] Memoria 10:30:00 10:30:00 03 john [place] 2017-11-05 2017-11-05 Outpatient MHIE MHIE [id number] Memoria 10:30:00 10:30:00 02 john [place] 2017-06-24 2017-06-24 Outpatient MHIE MHIE [id number] Memoria 11:30:00 11:30:00 00 john [place] 2017-06-24 2017-06-24 Outpatient MHIE MHIE [id number] Memoria 11:30:00 11:30:00 00 john [place] Results This patient has no known results.
[2022-07-24 13:45] VITALS: BMI 23.8
[2022-07-24] MEDS: ACETAMINOPHEN 500 MG TAB PO PRN ×2 (14:44→17:24)
[2022-07-24] MEDS ORDERED: SODIUM CHLORIDE 1 GM TAB PO SCH (17:00)
[2022-07-24] MEDS: SODIUM CHLORIDE 1 GM TAB PO SCH (17:52)
[2022-07-24] MEDS ORDERED: MELATONIN 3 MG TABLET PO PRN (18:21)
[2022-07-24] MEDS ORDERED: BACLOFEN 10 MG TAB PO SCH (20:00)
[2022-07-24] MEDS ORDERED: GABAPENTIN 100 MG CAP PO SCH (20:00)
[2022-07-24] MEDS: ROSUVASTATIN 10 MG TAB PO SCH (20:03)
[2022-07-24] MEDS: APIXABAN 2.5 MG TABLET PO SCH (20:03)
[2022-07-24] MEDS: GABAPENTIN 300 MG CAP PO SCH (20:03)
[2022-07-24] MEDS: RESTASIS OPTH SCH (20:04)
[2022-07-24] MEDS: ENSURE ENLIVE 237 ML CAN PO SCH (20:04)
[2022-07-24] MEDS ORDERED: LINEZOLID 600 MG TAB PO ONE (20:10)
[2022-07-24] MEDS: LINEZOLID 600 MG TAB PO SCH (20:44)
[2022-07-24] MEDS ORDERED: METOPROLOL TAR 25 MG TAB PO SCH (21:00)
[2022-07-24 21:59] LABS: Urine Bacteria <20 /HPF (<20); Urine Bilirubin NEGATIVE (Negative); Urine Blood 2+ (Negative); Urine Clarity Clear (Clear); Urine Color Yellow (Yellow); Urine Glucose NEGATIVE (Negative); Urine Mucus 1+ /HPF (None Seen); Urine Protein TRACE (Negative); Urine RBC >50 /HPF (None Seen); Urine Urobilinogen 2+ (Normal)
--- NOTE | 2022-07-25 02:31 | PN ---
MRI lumbar spine demonstrate postsurgical changes as well as abnormal disk space and end plate at L3/ 4, degenerative versus possible spondylodiskitis that is difficult to exclude. Postcontrast sequence s were recommended, we will order those tomorrow. It still maybe difficult to exclude. I would have a very low threshold for putting him back on IV antibiotic, vancomycin as noted. Infectious Disease is following the patient, so we will ask them to comment on antibiotic treatment for possible spinal spondylodiskitis. Overall, may reasonably have a low threshold for transfer for biopsy as 6 to 8 we eks of IV vancomycin is usually standard of care. His headache is better today, and with regard to t he standard housekeeping, he is back on acetaminophen, we will stop that because of the liver functio n tests were elevated and we stopped it yesterday because of that and we will stop the baclofen becau se we felt that was likely contributing to confusion. He is on a little higher dose of gabapentin. We will see how he does on that higher dose of 300 b.i.d. Repeat the CRP in the morning as well and try and follow that trend. Physical Examination: He is awake. He is alert. 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 Ocular motion full. Muñoz full. Strength full. Sensation decreased to distally. Reflexes 1 /4 at the knees. Gait not tested. Impression: 1.Delirium, improving. 2.Generalized weakness, unclear, likely multifactorial. 3.Possible lumbar spondylodiskitis. Plan: Medication adjustments as noted. Monitor liver function tests. Consider GI evaluation. We a re going to repeat the MRI of lumbar spine tomorrow that will hopefully be somewhat insightful with kole maynard to possible spondylodiskitis, but again, degenerative changes and diskitis both have fairly goo d likelihood of having enhancement, so it may not obviously answer the question and we will ask nursi staff as well as Infectious Disease to comment on antibiotic regimen since they are already on the case. We w ill continue to follow with you. RAMANDEEP/JARRODL Voice ID: [id number] Report ID: [id number]
--- NOTE | 2022-07-25 03:03 | PN ---
Date of Progress Note: 07/24/2022 Time: 0630. Reason: Weakness, delirium. Subjective: Interval History: The patient is in rehab now. He is comfortable. He does not have an y new problems. Laboratory Data: Labs done this morning did demonstrate that the liver function tests are trending d own. AST 183 and ALT 202. Was seen by Infectious Disease today. Antibiotics will be changed from vancomycin to p.o. Zyvox, I think complicating some of that. His MRI report, thoracic spine demonstrates spondylosis. No cord compression. Legs are weak on exam today. Mild central stenosis in the thoracic spine. The lumbar spine is a little more concerning with posts urgical changes. BK/MODL Voice ID: [id number] Report ID: [id number]
[2022-07-25 06:04] LABS: Hematocrit 31.9 % (39.6-49.0); Lymphocytes % 20.3 % (15.3-44.8); MCV 82.9 fL (80-100); RBC Red Blood Cell Count 3.85 M/uL (4.33-5.43)
[2022-07-25 06:29] LABS: Albumin 2.4 g/dL (3.4-5.0); Bilirubin Direct 0.2 mg/dL (0-0.2); Bilirubin Indirect, Calculated 0.3 mg/dL (0.2-0.8); Bilirubin Total 0.5 mg/dL (0.2-1.0); Magnesium 1.4 mg/dL (1.6-2.4); Potassium 3.5 mEq/L (3.5-5.1); Prealbumin 9.6 mg/dL (20-40); Protein, Total 6.4 g/dL (6.4-8.2)
[2022-07-25] MEDS ORDERED: ACETAMINOPHEN 500 MG TAB PO PRN (06:42)
--- NOTE | 2022-07-25 07:01 | HP ---
Date of Admission: 07/24/2022 Time Of Service: 1 p.m. Chief Complaint: "I became weak and confused after spending several days in hospital and I have a ur inary tract infection." History Of Present Illness: Mr. Chao is an 86-year-old patient who came to [facility] with confusion and dizziness over several days. His evaluation showed urinary tract infection with pyuri a. He was diagnosed with toxic metabolic encephalopathy and treated with Rocephin. Cultures growing Enterococcus faecalis and he was switched to vancomycin and Zyvox orally. The Urology Service evalu ated the patient, determined there was urinary retention and placed a Mccarthy catheter. Due to history of benign prostatic hypertrophy, the patient was placed on tamsulosin and finasteride. 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 The patient was also placed on gabapentin for neuropath ic pain by Neurology. Additional workup showed a right-sided lung opacity concerning for aspiration pneumonia due to dysphagia. The patient was seen by Speech Therapy Service and was placed on modifie d diet with recommendation for continued service. Due to the difficulty with mobilization and being in the bed for an extended period, the patient became significantly debilitated and when working with Physical Therapy, he was found to require moderate to maximum assistance for transfers, gait, and pe rforming activities of daily living. As a result, the patient was felt to be a more appropriate cand idate for acute inpatient rehabilitation rather than a lower level of care. Past Medical History: Guillain-[place], coronary artery disease, atrial fibrillation, chronic back garett n, hypertension, dyslipidemia, benign prostatic hypertrophy. Surgical History: Back surgery in 2018, cataract surgery, bilateral shoulder surgery, neck surgery, and neck pain. Allergies: LEVOFLOXACIN, PENICILLIN, CODEINE. Medications: Eliquis 2.5 mg twice daily, aspirin 81 mg daily, Cymbalta 30 mg daily, Lasix 20 mg kd y, gabapentin 300 mg twice daily, lidocaine patch 1 daily, Zyvox 600 mg twice daily, melatonin 3 mg a t bedtime, Lopressor 25 mg daily, Ensure Enlive 237 mL twice daily, Crestor 200 mg twice daily, Floma x 0.4 mg daily. Laboratory Studies: White blood cell count 12.3, neutrophils 74.9, hemoglobin 10.1, hematocrit 31, p latelets 313. Sodium 130, potassium 3.8, chloride 97, carbon dioxide 28, BUN 20, creatinine 0.80, gl ucose 130, calcium 8.9, phosphorus 3.2, magnesium 1.5. Procalcitonin on the 16th was 0.22, on the 15 th was 2.27. Ammonia level of 31. Urinalysis, 250 esterases, 11 to 20 white blood cells, 1+ blood, 48 random potassium, trace protein. Vancomycin trough level on the 16 is 4.4, on the 10.8, an d the 9.3. Imaging Studies: Thoracic spine MRI shows degenerative disk disease and posterior disk bulge at T8-9 resulting in mild central canal stenosis. Lumbar spine MRI also on 07/24/2022 shows abnormal appear ance of the disk space and adjacent endplate centered at L3-4, could be related to degenerative gan es. However, it is difficult to rule out spondylodiskitis, as post-contrast sequences through the magui mbar spine would be recommended. Central canal stenosis is noted, particularly prominent at L2-3 and L3-4. Review of Systems: Mr. Chao reports some back pain and had a low-dose gabapentin that was adjusted to 300 mg twice kd y on his admission. Otherwise, mild myalgias, arthralgias. No rash. No urinary retention. No issu es with stool. No other active or positives found on review of systems. Physical Examination: Vital Signs: Blood pressure 132/58, pulse 91, respiratory rate 16, temperature 98, oxygen saturation 91%. General: Mr. Chao is resting comfortably in bed, waiting for therapy to begin. HEENT: He is normocephalic, atraumatic. Sclerae anicteric. Oropharynx is moist. Neck: Supple. Chest: Clear. Heart: Regular. Extremities: Show no significant edema or cyanosis. Neurologic: Diffuse weakness and some slow responses. Otherwise, no focal deficits. Current Level Of Functioning: Today he ambulated 20 feet, 40 feet, 30 feet, and 25 feet with minimum assistance using a rolling walker. Did exhibit kyphotic posturing with short shuffling steps and sl ow gait. Today, he required moderate to maximum assistance with showering, [id number] transfers to shower with verbal cues with maximum assistance. Upper body dressing with maximum assistance. Unab le to perform lower body dressing without maximum assistance. The patient was seen and evaluated by Speech Therapy with long-term goals being to improve executive functioning and memory to a moderate a ssistance level for improved safety awareness and independence for return to prior level of functioni ng. Rehabilitation And Medical Assessment And Plan: Rehabilitation impairment category is 03 brain dysfu nction, nontraumatic. Rehabilitation impairment group code is 02.1 nontraumatic. Etiologic diagnosi s is acute toxic metabolic encephalopathy, suspect due to urinary tract infection. 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 Plan: 1.He will have 3-1/2 hours of physical and occupational along with speech therapy daily for 5 of 7 d ays. 2.For his comorbid conditions, we will continue with aspirin 81 mg daily and Eliquis 2.5 mg twice da francine for stroke and DVT risk reduction given atrial fibrillation. 3.Depression will be treated with duloxetine 30 mg daily, fluid management with Lasix 20 mg daily, g abapentin 300 mg twice daily for neuropathic pain in the lumbar region as noted in his imaging above. Lopressor 25 mg twice daily for rate control, melatonin 3 mg at night for insomnia, lidocaine patch to the back for pain, Crestor 20 mg at night for dyslipidemia, Ensure Enlive 237 mg daily for malnut rition, Flomax 0.4 mg daily for prostate hypertrophy. Sodium tablets 1 g 3 times daily for hyponatre serafin. Impact Of Comorbidities: Given his spinal stenosis, which is noted on imaging, he is at risk of fall s and cord injury and he will have a gait belt and walker at all times with extra caution due to his balance and coordination to prevent falls. If need be, bed alarm will be put in place. He does have atrial fibrillation which puts him at risk for stroke. He does have anticoagulation, which again li mited for extra bleeding and even GI bleed. Rehabilitation Specific Plan: Mr. Chao is being admitted to the comprehensive inpatient rehabilitat ion facility and he actually was evaluated and can tolerate the intensive level of service which will consist of 3-1/2 hours for 5 of 7 days of physical, occupational, and speech therapy. He will have half-way and physician evaluations on a daily basis to adjust medications as appropriate, foll ow blood levels to rule out infection, and make adjustments to medications for pain for his ability t o maintain good bowel movement and to thrive. Mr. Chao and his family have a good understanding of the benefits of the interdisciplinary program p rovided by the inpatient rehabilitation unit. He has the potential to make significant improvement w hen receiving physical, occupational, and speech therapy. Additionally, services from the Respirator y Service, Nutrition Service, Wound Care Service, Psychiatric Service and GI Service and Cardiology Ward haley will be consulted as appropriate. Given the complex medical condition and risk of further med ical complications, rehabilitation cannot be safely or effectively provided at a lower level of care. Barriers To Discharge: Given his spinal stenosis, risk of him falling and worsening, precautions margaret l be put in place to mitigate that. Does have atrial fibrillation again mitigation with anticoagulat ion to reduce risk of stroke, Estimated Length Of Stay: About 10 to 12 days. Disposition: Will be discharged home. Prognosis: Good. Rehabilitation Goals: 1.Perform upper and lower body dressing independently. 2.Transfer from bed to toilet chair. 3.Do a shower independently. 4.Ambulate 250 feet independently. 5.Up and down 10 steps independently. 6.Perform cognitive functioning independently. I acknowledge I have personally performed a full physical examination on Mr. Chao no later than 24 h ours after his admission to the inpatient rehabilitation facility and determined that he is able to t olerate the above course of treatment at an intensive level for a reasonable time. A detailed indivi dualized plan of care for him will be completed by hospital day 4 of his stay, based on the preadmiss ion screen history and physical and therapy evaluations. TANA/MILENA Voice ID: [id number]
[2022-07-25] MEDS ORDERED: BACLOFEN 10 MG TAB PO SCH (08:00)
[2022-07-25] MEDS ORDERED: ASPIRIN 81 MG CHEWABLE TABLET PO SCH (08:00)
[2022-07-25] MEDS: APIXABAN 2.5 MG TABLET PO SCH (08:34)
--- NOTE | 2022-07-25 09:47 | P.PN ---
Date of Service: 07/25/22 Chief complaint: AMS Subjective: Improving Patient transferred to Inpatient Rehab on 5th floor yesterday 07/24. A&Ox2. Denies any complaints at this time. Continue current plan of care. Physical Examination Temp Pulse Resp BP Pulse Ox 97.4 F 85 18 141/85 H 92 07/25/22 07:14 07/25/22 07:14 07/25/22 07:14 07/25/22 07:14 07/25/22 07:14 General: Alert, In no apparent distress, Oriented x2 HEENT: Atraumatic, Normocephalic; Hard of hearing, must speak loudly Neck: Supple, JVD not distended Respiratory: Normal air movement, Diminished bilaterally Cardiovascular: No edema, Normal pulses Gastrointestinal: Normal bowel sounds, Soft and benign, Non-distended Musculoskeletal: No clubbing. No swelling. Generalized weakness. 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 ID will follow the patient as needed. Case discussed with Sandra Ledesma
[2022-07-25] MEDS: LORAZEPAM 0.5 MG TABLET PO ONE ×2 (10:02→10:08)
[2022-07-25] MEDS: LIDOCAINE 4% PATCH TOP SCH (10:43)
[2022-07-25] MEDS: GABAPENTIN 300 MG CAP PO SCH ×2 (10:44→19:45)
[2022-07-25] MEDS: FINASTERIDE 5 MG TAB PO SCH (10:44)
[2022-07-25] MEDS: FUROSEMIDE 20 MG TABLET PO SCH (10:44)
[2022-07-25] MEDS: DULOXETINE 30 MG CAP PO SCH (10:44)
[2022-07-25] MEDS: ENSURE ENLIVE 237 ML CAN PO SCH ×2 (10:45→19:44)
[2022-07-25] MEDS: TAMSULOSIN 0.4 MG SR CAP PO SCH (10:45)
[2022-07-25] MEDS: SODIUM CHLORIDE 1 GM TAB PO SCH ×3 (10:45→17:00)
[2022-07-25] MEDS: RESTASIS OPTH SCH ×2 (10:53→19:45)
[2022-07-25] MEDS: LINEZOLID 600 MG TAB PO SCH ×2 (10:53→19:44)
[2022-07-25] MEDS: MAGNESIUM OXIDE 400 MG TAB PO SCH ×2 (11:09→19:45)
--- NOTE | 2022-07-25 11:32 | RAD REPORT ---
EXAM DESCRIPTION: MRI - Spine Lumbar W/Wo Cont - 07/25/2022 10:41 am CLINICAL HISTORY: Numbness and extremity weakness COMPARISON: MRI lumbar spine July 24, 2022 TECHNIQUE: 15 cc MultiHance administered intravenously. Postcontrast axial and sagittal T1 weighted sequences obtained. IR sagittal magnetic resonance image obtained. FINDINGS: Mild enhancement of the right aspect of the L3-4 disc is present. Mild to moderate enhanced of the inferior vertebral endplate L3 seen. Minimal enhancement inferior vertebral endplate of L2 No additional significant enhancement noted. IMPRESSION: Mild enhancement of the L3-4 disc with enhancement of the inferior vertebral endplate L3 . This has a nonspecific appearance. An acute degenerative process is considered most likely. Low gra de infectious/inflammatory process can also have this appearance but probably is less likely. If the patient continues to have symptoms to suggest infection then follow up MRI would be recommended .
--- NOTE | 2022-07-25 13:06 | CON ---
Date of Consultation: 07/25/2022 Reason For Consultation: Elevated BUN and creatinine, hyponatremia. History Of Present Illness: This is an 86-year-old gentleman, who was admitted to the hospital back in July with Guillain-[place] syndrome, CAD status post PCI, AFib, hypertension, benign prostate hypertrophy with permanent Mccarthy, hyperlipidemia. The patient came with disorientation and peripheral neuropathy and difficulty voiding, found to have obstructive uropathy. Mccarthy was inserted. Upon arrival to the hospital, the patient found to have hyponatremia that developed gradually, sodium went down to 127. For that reason, we have been involved. The kidney function continued to be elevated in the beginning, then after hydration kidney function went down to a creatinine 0.9 with normal GFR. The patient maintained well on salt tablet. The patient felt well. The patient transferred to rehab followup for PT/OT. The patient carried the diagnosis upon transfer of hyponatremia secondary to obstructive uropathy and hydrochlorothiazide induced, responds to salt tablet and Lasix, secondary to the component of SIADH, hypertension, Guillain-[place], CAD status post PCI. Past Medical History: Includes; 1. Guillain-[place]. 2. CAD status post PCI. 3. AFib. 4. Hypertension. 5. Benign prostatic hypertrophy. 6. Obstructive uropathy secondary to neurogenic bladder/prostate hypertrophy. 7. Hyponatremia, multifactorial secondary to SIADH/hydrochlorothiazide/obstructive uropathy, response on Lasix and salt tablet. Past Surgical History: Includes; 1. Back surgery. 2. Cataract. 3. Neck surgery. Allergies: TO LEVAQUIN, PENICILLIN, AND CODEINE. Current Medications: In the hospital include Eliquis 2.5 b.i.d., Cymbalta, Lasix 20 daily, gabapentin 300 b.i.d., Zyvox 600 b.i.d., melatonin, Lopressor, Ensure, Crestor, Flomax. Family History: Positive for hypertension. Social History: Lives with family. Denied smoking. Denied drinking. Denied drugs abuse. Review of Systems: Head and Neck: No red eye. No ear pain. GI: No nausea. No vomiting. : Has permanent Mccarthy since the previous admission. Shovel Oiler: Not applicable. Respiratory: No shortness of breath. Cardiovascular: No chest pain. Endocrine: No polydipsia. Skin: No rash. Neuro: The patient had low back pain, responds to low dose of gabapentin. Has myalgia and arthralgia. Physical Examination: General: When I saw the patient; the patient lying in bed. Vital Signs: Blood pressure 141/85, pulse of 85, afebrile. Chest: Clear to auscultation. Heart: S1, S2. Regular. Systolic murmur. Abdomen: Soft, nontender. Extremity: No edema. Neuro: The patient lying in bed. No focality. Laboratory Data: Sodium 134, potassium 3.5, bicarb 28, BUN 22, creatinine 0.9, calcium 9.2. Assessment And Plan: 1. Hyponatremia secondary to hydrochlorothiazide/SIADH/obstructive uropathy, recovered, resolved. I am going to go ahead and decrease his salt tablet to b.i.d. and we will continue to monitor the patient. 2. Hypokalemia. We will supplement. 3. Hypertension, controlled, optimal. Continue current medication. 4. Obstructive uropathy. Continue finasteride. Continue Mccarthy. Follow up with Urology. 5. Hypomagnesemia. We will supplement the patient. 6. Deconditioning, neuropathy. Follow up with Neurology and PT/OT. FIOR/MILENA Voice ID: [id number] Report ID: [id number] MTDD
[2022-07-25] MEDS ORDERED: MELATONIN 3 MG TABLET PO PRN (13:46)
[2022-07-25] MEDS ORDERED: TRAZODONE 50 MG TABLET PO PRN (13:46)
[2022-07-25] MEDS ORDERED: MAGNESIUM SULFATE 1 gm IVPB 1 GM/100 ML BAG IV ONE (14:00)
--- NOTE | 2022-07-25 19:23 | P.CNS ---
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 As documented previously, he presented via the emergency department with confusion and dizziness over several days. He was found to have a UTI and was diagnosed with toxic metabolic encephalopathy. He was initially treated with Rocephin until the cultures, growing Enterococcus faecalis, prompted switch to vancomycin and Zyvox. A urethral Mccarthy catheter was placed on 07/17/2022 with undetermined volume emanated. Additional evaluation showed right-sided lung opacity concerning for aspiration pneumonia due to dysphagia. Consult has been requested given the patient's urinary retention. Patient seen and evaluated. He was more back to his baseline at this point, eating and drinking, and seated upright in a chair. The urethral Mccarthy catheter was in place and draining clear yellow urine. 07/14/2022 urine culture -Enterococcus sensitive to Macrobid, ampicillin, fluoroquinolones 07/25/2022 creatinine 0.95, elevated LFTs -ALT/AST/alk phos 211/168/172 MRI - Spine Lumbar W/Wo Cont - 07/25/2022 10:41 am CLINICAL HISTORY: Numbness and extremity weakness COMPARISON: MRI lumbar spine July 24, 2022 TECHNIQUE: 15 cc MultiHance administered intravenously. Postcontrast axial and sagittal T1 weighted sequences obtained. IR sagittal magnetic resonance image obtained. FINDINGS: Mild enhancement of the right aspect of the L3-4 disc is present. Mild to moderate enhanced of the inferior vertebral endplate L3 seen. Minimal enhancement inferior vertebral endplate of L2 No additional significant enhancement noted. IMPRESSION: Mild enhancement of the L3-4 disc with enhancement of the inferior vertebral endplate L3. This has a nonspecific appearance. An acute degenerative process is considered most likely. Low grade infectious/inflammatory process can also have this appearance but probably is less likely. 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 Counseling and discussion: I counseled the patient that since he has been continued on his medical therapy for obstruction due to BPH, sufficient time has passed with adequate treatment of his Enterococcus UTI, and he is more back to his baseline relative to his acute medical illness, he may well have recovered the ability to void. I offered him the opportunity for voiding trial today as it has been 7 days since the catheter was placed, but the patient was not willing to take the risk that the catheter be removed and potentially need to be reinserted. As a result, he rather have the catheter remain in place and undergo a voiding trial in my offi ce where subsequent evaluation can be arranged to assess the etiology of his ongoing/underlying voiding dysfunction resulting in urinary retention. -Follow-up in the urology clinic within the next week for active voiding trial. If he is successful at voiding significantly more than 50 to 60% of the volume instilled, we will leave the catheter out and have him follow-up with me for cystoscopic evaluation. -We will consider urodynamic evaluation to characterize any persistent issues underlying the recurrent episodes of retention and infection causing his complicated UTI which may be done either before or after the cystoscopy.
[2022-07-25] MEDS: MELATONIN 5 MG TABLET PO PRN (19:44)
[2022-07-25] MEDS: APIXABAN 5 MG TABLET PO SCH (19:44)
[2022-07-25] MEDS: METOPROLOL TAR 25 MG TAB PO SCH (19:44)
[2022-07-25] MEDS: ROSUVASTATIN 10 MG TAB PO SCH (19:44)
--- NOTE | 2022-07-25 21:37 | PN ---
Date of Progress Note: 07/25/2022 Time Of Service: 1:30 p.m. Subjective: Mr. Chao is resting comfortably in between therapy sessions, in no acute distress. He has no new complaints on subjective. Review of Systems: Denies any fevers or chills. No significant myalgias, arthralgias. No rash, headache, weight change , and no focal deficits. Physical Examination: Vital Signs: Blood pressure 122/58, pulse 91, respiratory rate 16, temperature 97.6, oxygen saturati on 92%. General: Mr. Chao is resting comfortably. He is normocephalic, atraumatic. Sclerae anicteric. Or opharynx is moist. Neck: Supple. Chest: Clear. Heart: Regular. Musculoskeletal: He has no focal findings in terms of face, arm, and leg but diffuse weakness in the upper and lower extremities. Laboratory Studies: White blood cell count 9.9, hemoglobin 10.5, platelets 448. Sodium 134, potassi um 3.5, chloride 102, carbon dioxide 28, BUN 22, creatinine 0.95, glucose of 165. Calcium 9.2, magne sium 1.4, AST 168, ALT 211, alkaline phosphatase is 172. C-reactive protein 100, prealbumin 9.6. Consultations: He is seen by the Renal Service for elevated renal function. The assessment is hyponatremia secondary to hydrochlorothiazide, SIADH, obstructive uropathy. Report decreased salt intake. Continue to monitor. Supplement hypokalemia. The patient is also followed by the ID service, Dr. Linder, where his cultures on 07/14 showed Enterococcus faecalis. He was on v ancomycin and on Zyvox, and they are continuing to follow. X-ray/imaging: No new x-ray imaging. Medications: Tylenol 500 mg every 6 hours as needed, Eliquis 5 mg twice daily, baclofen 10 mg twice daily, Cymbalta 30 mg daily, Proscar 5 mg daily, Lasix 20 mg daily, gabapentin 300 mg twice daily, li docaine patch 1 patch daily, Zyvox 600 mg twice daily, magnesium oxide 400 mg twice daily, Flomax 0.4 mg daily, Crestor 20 mg at bedtime, and trazodone 25 mg at bedtime, rosuvastatin 20 mg at bedtime. Current Functional Status: Today, he ambulated 35 feet 3 times with minimum assistance using a rolli ng walker and mobilized on wheelchair 100 feet with verbal cues for maneuvering. Supine sit transfer s and standby assistance, sit to stand and stand and pivot transfers with minimum assistance using a rolling walker. Occupational therapy: Completed [id number] and edge of bed to rolling walker. Perform repetitive [id number] from bed to wheelchair 2 x 5 efforts to increase strength. His speech therapy evaluatio n was able to recall temporal information with 50% accuracy from free recall and 75% with cued recall . Progress Toward Rehabilitation Goals: His goal is making slow progress so far towards rehabilitation . All of this is just hospital day 2 in rehab. He has goals of becoming independent with upper and lower body dressing, transferring, toileting, and performing activities of daily living and performin g cognitive functioning independently as well. Assessment: Mr. Chao is in the rehabilitation unit with toxic metabolic encephalopathy secondary to urinary tract infection. He has urinary retention, decreased mobility, prostate hypertrophy, atrial fibrillation, dyslipidemia, hypertension, coronary artery disease, acute renal insufficiency, histor y of Guillain-[place]. Plan: 1.Continue with physical, occupational, and speech therapy. 2.He has multiple comorbid conditions including worsening renal function and increasing liver functi on. He is followed by multiple services with these issues being addressed comprehensively. Aung saldana, again continue with medications as listed above for his comorbid conditions. Comorbidities That Are Continuing To Impact Rehabilitation Process: Given his liver and kidney dysfu nction, the patient is at risk of significant worsening from multiorgan dysfunction and multiple serv ices are assisting. They will continue providing supportive care. His mobilization is beginning to improve, although slowly and cognitive functioning also beginning to improve. LB/MODL Voice ID: [id number] Report ID: [id number]
--- NOTE | 2022-07-25 22:46 | PN ---
Date of Progress Note: 07/25/2022 Time: 1830. Reason: Weakness, questionable diskitis. Interval History: Patient is stable. Has fever. Labs are slowly trending to improvement somewhat. White count 9.9. Creatinine is normal. Sedimentation rate is not performed at this institution, bu t CRP is 100, which is still quite elevated, but actually has improved. Transaminase is still elevat ed. AST 116, ALT 211. He is not complaining of headache to me. MRI lumbar spine with contrast demo nstrates mild enhancement at L3-4 disk with enhancement of the inferior vertebral endplate at L3, non specific and degenerative process is felt to be favored and I cannot say I completely disagree with t hat. Patient seems to be in good clinical condition. He does not have leg weakness. He does not lopez ve pain on percussion of the spine or pain on aggressive palpation of the spine. Physical Examination: General: He is awake, alert. Mild bilateral seventh nerve palsy. His ocular motion is full. Edent ulous. Hard of hearing. Strength full, sensation decreased distally. Reflexes 2+ in the knees. Laboratory Data: As noted. Data from various consultants reviewed and we did query to Renuka Hughes regarding possible diskitis and their recommendation was to continue the Zyvox for 10 days p.o. Impression: 1.Polyneuropathy. 2.Lumbar spondylosis. 3.Headache. Plan: 1.He is on gabapentin. 2.Consider repeating MRI of lumbar spine prior to discharge or sometime next week to monitor abnorma l enhancement and if it is infectious, will probably be worse on subsequent imaging now that he is on p.o. antibiotic. 3.Headache. He is not really complaining of headache. He nonspecifically queried to me the acetami nophen on hold because of liver function test being grossly elevated and patient does not respond wel l to narcotics nor the tramadol, so the headache becomes very problematic. We could try some low-dos e magnesium as needed 400 mg. We will follow up next week. BK/MODL Voice ID: [id number] Report ID: [id number]
[2022-07-26 06:24] LABS: Magnesium 1.8 mg/dL (1.6-2.4); Potassium 3.4 mEq/L (3.5-5.1)
[2022-07-26] MEDS: RESTASIS OPTH SCH ×2 (07:35→20:55)
[2022-07-26] MEDS: LINEZOLID 600 MG TAB PO SCH ×2 (07:35→20:54)
[2022-07-26] MEDS: DULOXETINE 30 MG CAP PO SCH (07:36)
[2022-07-26] MEDS: TAMSULOSIN 0.4 MG SR CAP PO SCH (07:36)
[2022-07-26] MEDS: FINASTERIDE 5 MG TAB PO SCH (07:36)
[2022-07-26] MEDS: METOPROLOL TAR 25 MG TAB PO SCH ×2 (07:37→20:46)
[2022-07-26] MEDS: APIXABAN 5 MG TABLET PO SCH ×2 (07:37→20:45)
[2022-07-26] MEDS: FUROSEMIDE 20 MG TABLET PO SCH (07:37)
[2022-07-26] MEDS: GABAPENTIN 300 MG CAP PO SCH ×2 (07:38→20:47)
[2022-07-26] MEDS: SODIUM CHLORIDE 1 GM TAB PO SCH ×2 (07:38→16:39)
[2022-07-26] MEDS: MAGNESIUM OXIDE 400 MG TAB PO SCH ×2 (07:38→20:54)
[2022-07-26] MEDS: ENSURE ENLIVE 237 ML CAN PO SCH ×2 (07:39→20:46)
--- NOTE | 2022-07-26 08:12 | P.RH.PN ---
Estimated Length of Stay: 14 Expected Discharge Date: 08/06/22 Discharge Disposition Plan: Home Family Support: Yes Halfway Goal: Mobility, Transfers, Self Care Vital Signs: Last Vital Signs Temp 97.2 F 07/26/22 08:00 Pulse 100 H 07/26/22 08:00 Resp 16 07/26/22 08:00 BP 134/70 07/26/22 08:00 Pulse Ox 92 07/26/22 08:00 Laboratory: Laboratory Last Values WBC 9.90 thou/uL (4.3-10.9) 07/25/22 05:25 RBC 3.85 M/uL (4.33-5.43) L 07/25/22 05:25 Hgb 10.5 g/dL (13.6-17.9) L 07/25/22 05:25 Hct 31.9 % (39.6-49.0) L 07/25/22 05:25 MCV 82.9 fL (80-100) 07/25/22 05:25 MCH 27.4 pg (27.0-35.0) 07/25/22 05:25 MCHC 33.0 g/dL (32.0-36.0) 07/25/22 05:25 RDW 13.9 % (12.1-15.2) 07/25/22 05:25 Plt Count 448 thou/uL (152-406) H 07/25/22 05:25 MPV 8.0 fL (7.6-11.3) 07/25/22 05:25 Neutrophils % 65.4 % (41.7-73.7) 07/25/22 05:25 Lymphocytes % 20.3 % (15.3-44.8) 07/25/22 05:25 Monocytes % 10.1 % (3.3-12.3) 07/25/22 05:25 Eosinophils % 3.5 % (0-4.4) 07/25/22 05:25 Basophils % 0.7 % (0-1.3) 07/25/22 05:25 Absolute Neutrophils 6.5 K/uL (1.8-8.0) 07/25/22 05:25 Absolute Lymphocytes 2.0 K/uL (0.7-4.9) 07/25/22 05:25 Absolute Monocytes 1.0 K/uL (0.1-1.3) 07/25/22 05:25 Absolute Eosinophils 0.3 K/uL (0-0.5) 07/25/22 05:25 Absolute Basophils 0.1 K/uL (0-0.5) 07/25/22 05:25 Sodium 133 mEq/L (136-145) L 07/26/22 05:04 Potassium 3.4 mEq/L (3.5-5.1) L 07/26/22 05:04 Chloride 99 mEq/L (98-107) 07/26/22 05:04 Carbon Dioxide 31 mEq/L (21-32) 07/26/22 05:04 Anion Gap 6.4 mEq/L (5.0-15.0) 07/26/22 05:04 BUN 20 mg/dL (7-18) H 07/26/22 05:04 Creatinine 0.92 mg/dL (0.70-1.30) 07/26/22 05:04 Est GFR (CKD-EPI) 81 ml/min (=/>90) L 07/26/22 05:04 Glucose 125 mg/dL (74-106) H 07/26/22 05:04 Calcium 9.3 mg/dL (8.5-10.1) 07/26/22 05:04 Magnesium 1.8 mg/dL (1.6-2.4) 07/26/22 05:04 Total Bilirubin 0.5 mg/dL (0.2-1.0) 07/25/22 05:25 Direct Bilirubin 0.2 mg/dL (0-0.2) 07/25/22 05:25 Indirect Bilirubin 0.3 mg/dL (0.2-0.8) 07/25/22 05:25 AST 168 U/L (15-37) H 07/25/22 05:25 ALT 211 U/L (16-61) H 07/25/22 05:25 Alkaline Phosphatase 172 U/L (45-117) H 07/25/22 05:25 C-Reactive Protein 100.00 mg/L (<3.00) H 07/25/22 05:25 Serum Total Protein 6.4 g/dL (6.4-8.2) 07/25/22 05:25 Albumin 2.4 g/dL (3.4-5.0) L 07/25/22 05:25 Globulin 4.0 g/dL (2.3-3.5) H 07/25/22 05:25 Albumin/Globulin Ratio 0.6 (1.1-1.8) L 07/25/22 05:25 Prealbumin 9.6 mg/dL (20-40) L 07/25/22 05:25 Urine Color Yellow (Yellow) 07/24/22 21:38 Urine Clarity Clear (Clear) 07/24/22 21:38 Urine pH 5.0 (5.0-7.0) 07/24/22 21:38 Ur Specific [place] 1.020 (1.005-1.030) 07/24/22 21:38 Glucose (UA)(Auto) Negative (Negative) 07/24/22 21:38 Urine Ketones Negative (Negative) 07/24/22 21:38 Urine Blood 2+ (Negative) H 07/24/22 21:38 Urine Nitrite Negative (Negative) 07/24/22 21:38 Urine Bilirubin Negative (Negative) 07/24/22 21:38 Urine Urobilinogen 2+ (Normal) H 07/24/22 21:38 Ur Leukocyte Esterase 75 Ben/uL (Negative) H 07/24/22 21:38 Urine RBC >50 /HPF (None Seen) H 07/24/22 21:38 Urine WBC <5 /HPF (<5) 07/24/22 21:38 Ur Squamous Epith Cells <5 /HPF (None Seen) 07/24/22 21:38 Urine Bacteria <20 /HPF (<20) 07/24/22 21:38 Hyaline Casts 0-5 /LPF (None Seen) 07/24/22 21:38 Urine Mucus 1+ /HPF (None Seen) 07/24/22 21:38 Urine Culture Reflexed Not needed 07/24/22 21:38 Urine Total Protein Trace (Negative) H 07/24/22 21:38 Weight: 147 lb 11.2 oz Wound Present: No Closed Surgical Incision Present: No Negative Pressure Wound Therapy Present: No Physician Update: Labs reviewed and are stable. His magnesium improved to 1.8. His Na decreased to 133. He is making fair overall progress with transfers, with speech cognitive status is poor. Working on memory and orientation. Min as sitance with transfers, walking about 35'. Headaches still present. Needs frequent redirection. Mod to max assitance with bathing, dressing his upper and lower body. 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 Please see the Rehabilitation Signature page for all necessary signatures.
[2022-07-26] MEDS: LIDOCAINE 4% PATCH TOP SCH (09:59)
[2022-07-26] MEDS: UBRELVY 100 MG PO PRN (10:20)
--- NOTE | 2022-07-26 10:22 | P.PN ---
Date of Service: 07/26/22 Chief complaint: AMS Subjective: Improving Patient ambulating in hallway with physical therapy with walker. Reports headache. Continue current plan of care. Physical Examination Temp Pulse Resp BP Pulse Ox 97.2 F 100 H 16 134/70 92 07/26/22 08:00 07/26/22 08:00 07/26/22 08:00 07/26/22 08:00 07/26/22 08:00 General: Alert, In no apparent distress, Oriented x2 HEENT: Atraumatic, Normocephalic; hearing loss, wears hearing aids Neck: Supple, JVD not distended Respiratory: Normal air movement, Diminished bilaterally Cardiovascular: No edema, Normal pulses Gastrointestinal: Normal bowel sounds, Soft and benign, Non-distended Musculoskeletal: No clubbing. No swelling. Generalized weakness. Integumentary: No rashes, No breakdown Neurological: Normal speech, Normal tone, Normal affect Urinary: Mccarthy catheter draining yellow urine Studies Laboratory Data - Reviewed Microbiology Data - Reviewed Imagings Data: - MRI of Lumbar Spine 07/24: "Mild enhancement of the L3-4 disc with enhancement of the inferior vertebral endplate L3. This has a nonspecific appearance. An acute degenerative process is considered most likely. Low grade infectious/inflammatory process can also have this appearance but probably is less likely. If the patient continues to have symptoms to suggest infection then follow up MRI would be recommended." Medications List Reviewed: Yes Assessment and Plan Problem List CAD s/p PCI x 4 Atrial Fibrillation, Chronic Hyperlipidemia Hx Guillain-[place] Syndrome BPH Urinary Tract Infection Moderate PCM Anemia * Allergies: Levofloxacin (hives), Penicillins (itching), Codeine * Urinary Tract Infection - Urine culture 07/14: Enterococcus faecalis - Urology on case UA 07/24: [blood 2+, urobilinogen 2+, LE 75, RBC >50, WBC <5, Bacteria <20] Urine culture 07/24: No growth to date - Previously on empiric Rocephin from 07/14 to 07/17, urine cultures resulting with Enterococcus faecalis and patient was switched to Vancomycin 07/17 to 07/21. - Currently on Zyvox (started 07/22) Recommendations Continue Zyvox PO x 10 days. - Currently day 5 of . - Patient to follow up with Urologist Dr. Curtis as outpatient where he will undergo a voiding trial in office - Supportive care and nutritional support as needed. ID will follow the patient as needed. Case discussed with Sandra Ledesma
--- NOTE | 2022-07-26 14:45 | P.PN ---
Subjective Date of Service: 07/26/22 Subjective: No new changes Physical Examination - Vital Signs Temperature: 97.2 F Blood Pressure: 134/70 Pulse: 100 Respirations: 16 Pulse Ox (%): 92 - Physical Exam General: Other (appears as his stated age) HEENT: Atraumatic, Normocephalic Neck: Supple, JVD not distended Respiratory: Clear to auscultation bilaterally, Other (symmetric chest expansion) Cardiovascular: No rubs, No murmurs Gastrointestinal: Soft and benign, No guarding Musculoskeletal: No clubbing Integumentary: No warmth Neurological: Normal tone Urinary: Other (no bladder distention) External genitalia: Deferred Rectal: Deferred - Studies Laboratory Data (last 24 hrs) 07/26/22 05:04: Sodium 133 L, Potassium 3.4 L, BUN 20 H, Creatinine 0.92, Glucose 125 H, Magnesium 1.8 Microbiology Data (last 24 hrs): 07/24/22 21:38 Catheterized Urine [place] Count - Final No growth. 07/24/22 21:38 Catheterized Urine - Final No growth. Assessment And Plan - Plan 1. Hyponatremia secondary to hydrochlorothiazide/SIADH/obstructive uropathy. Serum Na improved to 133. Salt tablet po b.i.d. encourage by mouth solid food intake 2. Hypokalemia. KCl po repletion today. 3. Hypertension, controlled, optimal. Continue current medication regimen. 4. Obstructive uropathy. Continue finasteride. Continue Mccarthy. Follow up with Urology. 5. Hypomagnesemia. We will supplement the patient. 6. Deconditioning. PT/OT
[2022-07-26] MEDS ORDERED: POTASSIUM CL SA 10 MEQ TAB PO ONE (16:00)
[2022-07-26] MEDS: ROSUVASTATIN 10 MG TAB PO SCH (20:47)
[2022-07-26] MEDS: DOCUSATE NA/SENNA CONC 1 TAB PO SCH ×2 (20:47→21:00)
[2022-07-26] MEDS: MELATONIN 5 MG TABLET PO PRN (20:49)
[2022-07-26] MEDS: TRAZODONE 50 MG TABLET PO PRN (22:29)
[2022-07-27] MEDS: LIDOCAINE 4% PATCH TOP SCH (07:45)
[2022-07-27] MEDS: LINEZOLID 600 MG TAB PO SCH ×2 (07:45→19:44)
[2022-07-27] MEDS: RESTASIS OPTH SCH ×2 (07:45→19:43)
[2022-07-27] MEDS: FUROSEMIDE 20 MG TABLET PO SCH (07:46)
[2022-07-27] MEDS: MAGNESIUM OXIDE 400 MG TAB PO SCH ×2 (07:46→19:44)
[2022-07-27] MEDS: SODIUM CHLORIDE 1 GM TAB PO SCH ×2 (07:46→17:01)
[2022-07-27] MEDS: FINASTERIDE 5 MG TAB PO SCH (07:46)
[2022-07-27] MEDS: TAMSULOSIN 0.4 MG SR CAP PO SCH (07:46)
[2022-07-27] MEDS: APIXABAN 5 MG TABLET PO SCH ×2 (07:46→19:44)
[2022-07-27] MEDS: DULOXETINE 30 MG CAP PO SCH (07:46)
[2022-07-27] MEDS: METOPROLOL TAR 25 MG TAB PO SCH ×2 (07:47→19:44)
[2022-07-27] MEDS: GABAPENTIN 300 MG CAP PO SCH ×2 (07:47→19:44)
[2022-07-27] MEDS: ENSURE ENLIVE 237 ML CAN PO SCH ×2 (07:48→19:45)
[2022-07-27] MEDS: UBRELVY 100 MG PO PRN (08:25)
--- NOTE | 2022-07-27 11:08 | P.PN ---
Subjective Date of Service: 07/27/22 [place] No overnight events stable VS cont PY/OT cont Abx as pr ID , General: sleeping , NAD HEENT: Atraumatic, Normocephalic Neck: Supple, no elevated JVD Respiratory: CTAB Cardiovascular: No rubs, No murmurs Gastrointestinal: Soft and benign, Non-distended Musculoskeletal: No clubbing Integumentary: No warmth Neurological: Normal tone, Sensation intact Lymphatics: No axilla or inguinal lymphadenopathy Ext; No edema A/P # Hyponatremia secondary to hydrochlorothiazide/SIADH/obstructive uropathy. Serum Na improved to 133. Salt tablet po b.i.d. encourage by mouth solid food intake # Hypokalemia. Replace prn Mg replacement # Hypertension, controlled, optimal. Continue current medication regimen. # Obstructive uropathy. Continue finasteride. Continue Mccarthy. Follow up with Urology. # Hypomagnesemia. We will supplement the patient. # Deconditioning. PT/OT #UTI Cont ABx Physical Examination - Vital Signs Temperature: 97.2 F Blood Pressure: 134/70 Pulse: 100 Respirations: 16 Pulse Ox (%): 92 - Studies Microbiology Data (last 24 hrs): 07/24/22 21:38 Catheterized Urine [place] Count - Final No growth. 07/24/22 21:38 Catheterized Urine - Final No growth.
[2022-07-27] MEDS: ROSUVASTATIN 10 MG TAB PO SCH (19:44)
[2022-07-27] MEDS: DOCUSATE NA/SENNA CONC 1 TAB PO SCH (19:45)
[2022-07-27] MEDS: TRAZODONE 50 MG TABLET PO PRN (22:50)
[2022-07-28] MEDS: APIXABAN 5 MG TABLET PO SCH ×2 (09:00→19:38)
--- NOTE | 2022-07-28 09:00 | PN ---
Date of Progress Note: 07/27/2022 Time Of Service: 8 p.m. Subjective: Mr. Chao is resting in bed, watching television. He is in no acute distress. He is sa natalie he had a rest day, did not do therapy on his foot pain on Friday. He has no new complaints ex cept headaches, which have improved some. Review of Systems: No recent fevers, chills, nausea, vomiting, myalgias, arthralgias. No rash. No psychiatric complain ts. Physical Examination: Vital Signs: Blood pressure 115/62, pulse of 85, respiratory rate 18, temperature 97.2, oxygen satur ation 94%. General: Mr. Chao is resting comfortably in bed. He is in no significant distress. His confusion is improved significantly. He has no focal deficits. He does have some pain in the leg, but that is actually at that point 0. Head pain at this point today is rated at 0/10. In terms of the strength in upper and lower extremities, mild diffuse weakness. No focal findings on the examination. Laboratory Studies: No new laboratory studies. His acetaminophen level is less than 5. X-ray/imaging: No new x-ray imaging. He is followed by multiple services. Dr. Boucher on Neurology is assisting with headaches. The Renal Service is following him with obstructive uropathy and renal dysfunction. His hyponatremia is improv ing with replacement. Hypokalemia and magnesium have also been replaced. He is followed also by the Urology Service because of the obstructive uropathy and Dr. Curtis is assisting. The patient has a Mccarthy catheter in place and will remain in place until he is followed up possibly for urodynamics an d additional studies by Dr. Curtis. The patient has been followed by Dr. Linder and the Infectious Disease Service as well for his Enterococcus faecalis in urine culture. He recommended that the hany ent continue the Zyvox orally for 10 days and started on 07/22, complete by 08/01. Assessment: Mr. Chao is admitted to the rehabilitation unit with metabolic encephalopathy that is i mproving. He has multiple electrolyte abnormalities including hyponatremia, hypokalemia, hypomagnese serafin, and SIADH. He also has obstructive uropathy and Enterococcus faecalis infection. Plan: 1.Continue physical, occupational, and speech therapy 3.5 hours 5 of 7 days. 2.Continue with management of his multiple comorbid conditions with the assistance of the consulting services. Current Functional Status: As today is weekend, no additional therapy was done in terms of ambulatin g. The patient did bed mobility exercises. Progress With His Rehabilitation: He is making fair progress overall towards his rehabilitation goal s of becoming independent with upper body dressing, transferring, toileting, showering, and performin g cognitive functioning independently. Comorbidities That Continue To Impact Rehabilitation Process: He has kidney dysfunction and liver dy sfunction. He does have significant headaches. The patient's did indicate while on the acute c are floor, she was giving him extra Tylenol for headaches and he is receiving Tylenol per hospital's orders. The hospital staff were unaware that the patient's was giving him extra Tylenol and the y are contributing to his elevated liver function studies. He will stop getting any extra Tylenol fo r headaches. He may try Ubrelvy 100 mg to abort headaches. LB/JARRODL Voice ID: [id number] Report ID: [id number]
[2022-07-28] MEDS: LIDOCAINE 4% PATCH TOP SCH (09:03)
[2022-07-28] MEDS: TAMSULOSIN 0.4 MG SR CAP PO SCH (09:03)
[2022-07-28] MEDS: METOPROLOL TAR 25 MG TAB PO SCH ×2 (09:04→19:38)
[2022-07-28] MEDS: DULOXETINE 30 MG CAP PO SCH (09:04)
[2022-07-28] MEDS: FINASTERIDE 5 MG TAB PO SCH (09:04)
[2022-07-28] MEDS: GABAPENTIN 300 MG CAP PO SCH ×2 (09:04→19:38)
[2022-07-28] MEDS: FUROSEMIDE 20 MG TABLET PO SCH (09:05)
[2022-07-28] MEDS: MAGNESIUM OXIDE 400 MG TAB PO SCH ×2 (09:05→19:39)
[2022-07-28] MEDS: SODIUM CHLORIDE 1 GM TAB PO SCH ×2 (09:05→16:45)
[2022-07-28] MEDS: RESTASIS OPTH SCH ×2 (09:08→19:36)
[2022-07-28] MEDS: LINEZOLID 600 MG TAB PO SCH ×2 (09:23→19:39)
[2022-07-28] MEDS: ENSURE ENLIVE 237 ML CAN PO SCH ×2 (09:24→19:40)
[2022-07-28 15:54] LABS: Potassium 4.2 mEq/L (3.5-5.1)
[2022-07-28] MEDS: ROSUVASTATIN 10 MG TAB PO SCH (19:37)
[2022-07-28] MEDS: MELATONIN 5 MG TABLET PO PRN (19:38)
[2022-07-28] MEDS: DOCUSATE NA/SENNA CONC 1 TAB PO SCH (19:40)
[2022-07-28] MEDS: TRAZODONE 50 MG TABLET PO PRN (21:57)
[2022-07-29] MEDS: UBRELVY 100 MG PO PRN (00:03)
[2022-07-29] MEDS: POTASSIUM CL SA 10 MEQ TAB PO SCH (07:34)
[2022-07-29] MEDS: RESTASIS OPTH SCH ×2 (07:34→19:26)
[2022-07-29] MEDS: APIXABAN 5 MG TABLET PO SCH ×2 (07:34→19:28)
[2022-07-29] MEDS: ENSURE ENLIVE 237 ML CAN PO SCH ×2 (07:34→19:28)
[2022-07-29] MEDS: TAMSULOSIN 0.4 MG SR CAP PO SCH (07:35)
[2022-07-29] MEDS: MAGNESIUM OXIDE 400 MG TAB PO SCH ×2 (07:35→19:26)
[2022-07-29] MEDS: FUROSEMIDE 20 MG TABLET PO SCH (07:36)
[2022-07-29] MEDS: LINEZOLID 600 MG TAB PO SCH ×2 (07:36→19:27)
[2022-07-29] MEDS: DULOXETINE 30 MG CAP PO SCH (07:36)
[2022-07-29] MEDS: GABAPENTIN 300 MG CAP PO SCH ×3 (07:36→19:28)
[2022-07-29] MEDS: SODIUM CHLORIDE 1 GM TAB PO SCH ×2 (07:37→16:56)
[2022-07-29] MEDS: FINASTERIDE 5 MG TAB PO SCH (07:37)
--- NOTE | 2022-07-29 09:34 | P.PN ---
Date of Service: 07/29/22 Chief complaint: AMS Subjective: Headache slightly improving. No other complaints. Patient in bed, awake and oriented x 2. Overall improving. Physical Examination Temp Pulse Resp BP Pulse Ox 97.8 F 87 18 100/58 L 94 07/29/22 06:55 07/29/22 07:36 07/29/22 06:55 07/29/22 07:36 07/29/22 06:55 General: Alert, In no apparent distress, Oriented x2 HEENT: Atraumatic, Normocephalic; hearing loss, wears hearing aids Neck: Supple, JVD not distended Respiratory: Normal air movement, Diminished bilaterally Cardiovascular: No edema, Normal pulses Gastrointestinal: Normal bowel sounds, Soft and benign, Non-distended Musculoskeletal: No clubbing. No swelling. Generalized weakness. Integumentary: No rashes, No breakdown Neurological: Normal speech, Normal tone, Normal affect Urinary: Mccarthy catheter draining yellow urine Studies Laboratory Data - Reviewed Microbiology Data - Reviewed Imagings Data: - MRI of Lumbar Spine 07/24: "Mild enhancement of the L3-4 disc with enhancement of the inferior vertebral endplate L3. This has a nonspecific appearance. An acute degenerative process is considered most likely. Low grade infectious/inflammatory process can also have this appearance but probably is less likely. If the patient continues to have symptoms to suggest infection then follow up MRI would be recommended." Medications List Reviewed: Yes Assessment and Plan Problem List CAD s/p PCI x 4 Atrial Fibrillation, Chronic Hyperlipidemia Hx Guillain-[place] Syndrome BPH Urinary Tract Infection Moderate PCM Anemia * Allergies: Levofloxacin (hives), Penicillins (itching), Codeine * Urinary Tract Infection - Urine culture 07/14: Enterococcus faecalis - Urology on case UA 07/24: [blood 2+, urobilinogen 2+, LE 75, RBC >50, WBC <5, Bacteria <20] Urine culture 07/24: No growth to date - Currently on Zyvox (started 07/22) Recommendations Continue Zyvox PO x 10 days (started 07/22). Currently on day 8 of 10. - Patient to follow up with Urologist Dr. Curtis as outpatient where he will undergo a voiding trial in office - Supportive care and nutritional support as needed. ID will follow the patient as needed. Case discussed with Sandra Ledesma
[2022-07-29] MEDS: METOPROLOL TAR 25 MG TAB PO SCH ×2 (10:21→19:40)
[2022-07-29] MEDS: LIDOCAINE 4% PATCH TOP SCH (10:21)
[2022-07-29] MEDS: DOCUSATE NA/SENNA CONC 1 TAB PO SCH (19:26)
[2022-07-29] MEDS: MELATONIN 5 MG TABLET PO PRN (19:27)
[2022-07-29] MEDS: ROSUVASTATIN 10 MG TAB PO SCH (19:27)
--- NOTE | 2022-07-29 20:23 | PN ---
Date of Progress Note: 07/29/2022 Tqyn-Ad-Bdad Progress Note Visit Time Of Service: 12:30 p.m. Subjective: Mr. Chao is resting comfortably, in no acute distress. He is happy with his therapy so far and he has resolved significant confusion and his spine is much clearer. Review of Systems: No fevers, chills, nausea, vomiting, myalgias, arthralgias, or rash. No active psychiatric issues. Physical Examination: Vital Signs: Blood pressure 110/58, pulse is 87 up to 107, respiratory rate is 14 to 18, temperature 97.8, and oxygen saturation 94%. General: Mr. Chao is resting comfortably. He is in no acute distress. HEENT: He is normocephalic, atraumatic. Sclerae anicteric. Oropharynx is moist and pink. Neck: Supple. Chest: Clear. Heart: Regular. Extremities: No clubbing, cyanosis, or edema. Laboratory Studies: No new laboratory studies. X-ray/imaging: No new x-ray or imaging. Consultations: He was seen today by the ID service under Dr. Linder's management with recommendation to continue Zyvox for 10 days, currently on day 8 of 10. Also the patient to follow up with Dr. Siddharth judd, urologist outpatient for voiding trials. Medications: Eliquis 5 mg twice daily, duloxetine 30 mg daily, Proscar 5 mg daily, Lasix 20 mg daily , gabapentin 300 mg twice daily, lidocaine patch 1 patch daily, Zyvox 600 mg twice daily, magnesium o xide 400 mg twice daily, melatonin 10 mg at bedtime, Lopressor 25 mg twice daily, Ensure Enlive 237 m L twice daily, potassium 10 mEq daily, rosuvastatin 20 mg at bedtime, Senokot-S 2 at bedtime sodium c hloride 1 g twice daily, Flomax 0.4 mg daily, and Desyrel 50 mg at bedtime. Current Functional Status: Currently, Mr. Chao did have some fatigue from ambulating earlier as not ed by the physical therapist when his therapy was attempted to be done later and earlier in the day, he did ambulate 75 feet 4 times and 50 feet once with contact guard assistance using a rolling walker . With occupational therapy, he was at supervision level for toilet hygiene and bathing; for upper b rogelio dressing, contact guard assistance required and lower body dressing as well. For his speech, he used external cues and was oriented to temporal and spatial concepts with 80% accuracy. He had susta ined attention for 10 minutes during a structured task with 75% accuracy. Progress Towards Rehabilitation Goals: He is making fair overall progress towards his goals of becom ing independent with upper and lower body dressing, transferring, toileting, performing activities of daily living and ambulating 250 feet with modified independence. In addition to perform his cogniti ve functioning independently, he is making fair progress overall. Assessment: Mr. Chao is an 86-year-old patient in the rehabilitation unit with metabolic encephalop athy that is improving. 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 He is followed by the Renal Service, Urology Service and the Infectious Disease Service. Plan: 1.Continue physical and occupational therapy 3.5 hours, 5 of 7 days. 2.Continue with his multiple medications to address his comorbid conditions as listed above. Comorbids That Are Continuing To Impact His Rehabilitation: He still has a Mccarthy catheter in place a nd it will be removed as he follows up with Dr. Curtis, the urologist. He will complete his antibio tic course for his urinary tract infection and he has fluid management and electrolyte management address ed by the Renal Service. TANA/MILENA Voice ID: [id number] Report ID: [id number]
[2022-07-29] MEDS: TRAZODONE 50 MG TABLET PO PRN (22:58)
--- NOTE | 2022-07-30 02:08 | PN ---
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 Subjective: Serum sodium improved to 133. The patient is on sodium chloride tablets. The patient i s on p.o. intake and protein intake has improved. Hypokalemia. The patient is getting replacement with potassium and magnesium as needed. Review of Systems: Denies fever or chills. Physical Examination: Lungs: Clear to auscultation bilaterally. Heart: S1, S2. Abdomen: Soft. Extremities: No edema. Impression And Plan: 1.Hyponatremia, multifactorial. Continue sodium chloride tablets. Avoid excessive p.o. fluid intak e. 2.Hypokalemia. Monitor electrolytes and provide replacement as needed. 3.Hypertension. Blood pressure controlled. 4.Obstructive uropathy, bladder outlet obstruction. Continue finasteride. Follow up with Urology. The patient has Mccarthy catheter. 5.Deconditioning. The patient is undergoing physical therapy. 6.Urinary tract infection. Continue antibiotics. EB/MODL Voice ID: [id number] Report ID: [id number]
[2022-07-30] MEDS: ENSURE ENLIVE 237 ML CAN PO SCH ×2 (07:33→19:12)
[2022-07-30] MEDS: RESTASIS OPTH SCH ×2 (07:33→19:37)
[2022-07-30] MEDS: LINEZOLID 600 MG TAB PO SCH ×2 (07:34→19:37)
[2022-07-30] MEDS: DULOXETINE 30 MG CAP PO SCH (07:34)
[2022-07-30] MEDS: LIDOCAINE 4% PATCH TOP SCH (07:34)
[2022-07-30] MEDS: FUROSEMIDE 20 MG TABLET PO SCH (07:35)
[2022-07-30] MEDS: SODIUM CHLORIDE 1 GM TAB PO SCH ×2 (07:35→17:00)
[2022-07-30] MEDS: METOPROLOL TAR 25 MG TAB PO SCH ×2 (07:35→19:37)
[2022-07-30] MEDS: TAMSULOSIN 0.4 MG SR CAP PO SCH (07:37)
[2022-07-30] MEDS: POTASSIUM CL SA 10 MEQ TAB PO SCH (07:37)
[2022-07-30] MEDS: FINASTERIDE 5 MG TAB PO SCH (07:40)
[2022-07-30] MEDS: MAGNESIUM OXIDE 400 MG TAB PO SCH ×2 (07:41→19:38)
[2022-07-30] MEDS: APIXABAN 5 MG TABLET PO SCH ×2 (07:42→19:37)
--- NOTE | 2022-07-30 10:08 | P.PN ---
Date of Service: 07/30/22 Chief complaint: AMS Subjective: Improving. No new changes. Denies any new complaints. No acute events reported overnight. Physical Examination Temp Pulse Resp BP Pulse Ox 96.8 F 91 H 19 113/63 92 07/30/22 06:44 07/30/22 07:35 07/30/22 06:44 07/30/22 07:35 07/30/22 06:44 General: Alert, In no apparent distress, Oriented x2 HEENT: Atraumatic, Normocephalic; hearing loss, wears hearing aids Neck: Supple, JVD not distended Respiratory: Normal air movement, Diminished bilaterally Cardiovascular: No edema, Normal pulses Gastrointestinal: Normal bowel sounds, Soft and benign, Non-distended Musculoskeletal: No clubbing. No swelling. Generalized weakness. Walker with assistance. Integumentary: No rashes, No breakdown Neurological: Normal speech, Normal tone, Normal affect Studies Laboratory Data - Reviewed Microbiology Data - Reviewed Imagings Data: - MRI of Lumbar Spine 07/24: "Mild enhancement of the L3-4 disc with enhancement of the inferior vertebral endplate L3. This has a nonspecific appearance. An acute degenerative process is considered most likely. Low grade infectious/inflammatory process can also have this appearance but probably is less likely. If the patient continues to have symptoms to suggest infection then follow up MRI would be recommended." Medications List Reviewed: Yes Assessment and Plan Problem List CAD s/p PCI x 4 Atrial Fibrillation, Chronic Hyperlipidemia Hx Guillain-[place] Syndrome BPH Urinary Tract Infection Moderate PCM Anemia * Allergies: Levofloxacin (hives), Penicillins (itching), Codeine * Urinary Tract Infection - Urine culture 07/14: Enterococcus faecalis - Urology on case UA 07/24: [blood 2+, urobilinogen 2+, LE 75, RBC >50, WBC <5, Bacteria <20] Urine culture 07/24: No growth to date - On Zyvox PO (started 07/22) Recommendations Continue Zyvox PO x 10 days. Currently on day 9 of 10. Antibiotics to be completed on 07/31. Patient to follow up with urology as outpatient for urinary retention/BPH Continue current plan of care. ID will follow the patient as needed. Case discussed with Sandra Ledesma
[2022-07-30] MEDS: ROSUVASTATIN 10 MG TAB PO SCH (19:37)
[2022-07-30] MEDS: DOCUSATE NA/SENNA CONC 1 TAB PO SCH (19:37)
[2022-07-30] MEDS: GABAPENTIN 300 MG CAP PO SCH (19:37)
--- NOTE | 2022-07-30 23:44 | PN ---
Date of Progress Note: 07/30/2022 [facility] Progress Note Visit Time Of Service: 1 p.m. Subjective: Mr. Chao is resting comfortably in no acute distress. He has no complaints. Review of Systems: No fevers, chills, nausea, vomiting, myalgias, or arthralgias. Physical Examination: Vital Signs: Blood pressure 99/60, pulse 90, respiratory rate of 16, temperature 97.6, and oxygen sa turation 92%. General: Mr. Chao is resting comfortably. He is sitting in the chair watching the view outside. H e is in no significant distress. HEENT: He is normocephalic, atraumatic. Sclerae anicteric. Oropharynx is moist. Neck: Supple. Chest: Clear. Neurological: He has no focal weakness in upper and lower extremities, just diffuse weakness. Laboratory Studies: No new laboratory studies. X-ray/imaging: No new x-ray or imaging. Medications: Have been reviewed and remain unchanged. Current Functional Status: Today he ambulated 125 feet twice and another 175 feet once with contact guard assistance using a rolling walker. He mobilized a wheelchair 125 feet with verbal cues for man euvering. With speech therapy, he was oriented to temporal concepts with 100% accuracy with spatial concepts of only 25% accuracy. He had sustained attention for 35 minutes with 100% accuracy and reca lled 3 of 3 pictures after 10 and 15 minute increments without cues. Progress Towards Rehabilitation Goals: Mr. Chao is making good progress towards his goals of becomi ng modified independent with his upper and lower body dressing, transferring, toileting, eating, ambu lating 250 feet with a rolling walker with modified independence and going up and down 5 steps to 10 steps with modified independence. In addition, his cognitive functioning is improving to become inde pendent with cognition, memory, judgment, thinking, and processing. Assessment: Mr. Chao is an 86-year-old patient in the rehabilitation unit with metabolic encephalop athy, which is improving. 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 He has obstructive uropathy, followed by the urologists. He has Enterococcal faecalis infection by Infectious Disease and his renal insufficiency is followed by the Renal Service. Plan: 1.Continue with physical, occupational, and speech therapy. 2.Continue Eliquis 5 mg twice daily for stroke and DVT risk reduction. 3.Continue Cymbalta 30 mg daily for depression. 4.Continue Proscar 5 mg daily for urinary retention. 5.Continue with Lasix 20 mg daily for fluid management. 6.Continue gabapentin 300 mg twice daily for neuropathic pain. 7.Ensure Plus 237 mL twice daily for malnutrition. 8.Crestor 20 mg at night for dyslipidemia. 9.Senokot-S 2 tabs at night for constipation. 10.Desyrel 50 mg at bedtime for insomnia. Comorbids That Continue To Impact Rehabilitation Process: His Mccarthy catheter was actually removed to day, but at the time I evaluated him, he had not voided, but he was feeling very hopeful and did not have any pain or issues after the removal of his urinary catheter. Again, he will be followed up in clinic by Dr. Curtis, Urology. TANA/MILENA Voice ID: [id number] Report ID: [id number]
[2022-07-31] MEDS: RESTASIS OPTH SCH ×2 (07:34→19:16)
[2022-07-31] MEDS: METOPROLOL TAR 25 MG TAB PO SCH ×2 (07:34→19:17)
[2022-07-31] MEDS: LINEZOLID 600 MG TAB PO SCH ×2 (07:34→19:17)
[2022-07-31] MEDS: DULOXETINE 30 MG CAP PO SCH (07:35)
[2022-07-31] MEDS: TAMSULOSIN 0.4 MG SR CAP PO SCH (07:35)
[2022-07-31] MEDS: FUROSEMIDE 20 MG TABLET PO SCH (07:36)
[2022-07-31] MEDS: MAGNESIUM OXIDE 400 MG TAB PO SCH ×2 (07:36→19:17)
[2022-07-31] MEDS: SODIUM CHLORIDE 1 GM TAB PO SCH ×2 (07:36→16:49)
[2022-07-31] MEDS: FINASTERIDE 5 MG TAB PO SCH (07:37)
[2022-07-31] MEDS: ENSURE ENLIVE 237 ML CAN PO SCH ×2 (07:37→19:17)
[2022-07-31] MEDS: GABAPENTIN 300 MG CAP PO SCH ×2 (07:37→19:18)
[2022-07-31] MEDS: APIXABAN 5 MG TABLET PO SCH ×2 (07:37→19:17)
[2022-07-31] MEDS: POTASSIUM CL SA 10 MEQ TAB PO SCH (07:37)
[2022-07-31] MEDS: LIDOCAINE 4% PATCH TOP SCH (08:38)
--- NOTE | 2022-07-31 10:11 | P.PN ---
Date of Service: 07/31/22 Chief complaint: AMS Subjective: No new complaints. Improving. Patient sitting in chair. A&Ox2 Failed voiding trial yesterday after removal of lr catheter, patient with urinary retention. New lr placed, draining natan colored urine. Day 12/17 of Zyvox. Physical Examination Temp Pulse Resp BP Pulse Ox 96.9 F 91 H 18 105/60 94 07/31/22 07:13 07/31/22 07:36 07/31/22 07:13 07/31/22 07:36 07/31/22 07:13 General: Alert, In no apparent distress, Oriented x2 HEENT: Atraumatic, Normocephalic; hearing loss, wears hearing aids Neck: Supple, JVD not distended Respiratory: Normal air movement, Diminished bilaterally Cardiovascular: No edema, Normal pulses Gastrointestinal: Normal bowel sounds, Soft and benign, Non-distended Musculoskeletal: No clubbing. No swelling. Generalized weakness. Walker with assistance. Integumentary: No rashes, No breakdown Neurological: Normal speech, Normal tone, Normal affect Studies Laboratory Data - Reviewed Microbiology Data - Reviewed Imagings Data: - MRI of Lumbar Spine 07/24: "Mild enhancement of the L3-4 disc with enhancement of the inferior vertebral endplate L3. This has a nonspecific appearance. An acute degenerative process is considered most likely. Low grade infectious/inflammatory process can also have this appearance but probably is less likely. If the patient continues to have symptoms to suggest infection then follow up MRI would be recommended." Medications List Reviewed: Yes Assessment and Plan Problem List CAD s/p PCI x 4 Atrial Fibrillation, Chronic Hyperlipidemia Hx Guillain-[place] Syndrome BPH Urinary Tract Infection Moderate PCM Anemia * Allergies: Levofloxacin (hives), Penicillins (itching), Codeine * Urinary Tract Infection - Urine culture 07/14: Enterococcus faecalis - Urology on case UA 07/24: [blood 2+, urobilinogen 2+, LE 75, RBC >50, WBC <5, Bacteria <20] Urine culture 07/24: No growth to date - On Zyvox PO x 10 days (started 07/22) Recommendations Completing 10 day course of Zyvox today 07/31. Current plan for patient to be discharged on Friday. Per urology, patient to remain with lr catheter until follow up visit with urologist for urinary retention/BPH. ID will follow the patient as needed. Case discussed with Sandra Ledesma
--- NOTE | 2022-07-31 13:32 | PN ---
Date of Progress Note: 07/31/2022 Subjective: The patient was admitted with fall. The patient had obstructive uropathy. The patient transferred to rehab. The patient maintained well. Physical Examination: Vital Signs: When I saw the patient; blood pressure 105/60, pulse of 91, afebrile. Chest: Clear to auscultation. Heart: S1, S2. Regular. Abdomen: Soft, nontender. Extremity: No edema. Neurologic: Alert. No focality. Laboratory Data: Hemoglobin 10.5. Sodium 135, potassium 4.2, bicarb 29, BUN 29, creatinine 1.1, GFR of 65, calcium 9.6. Current Medications: The patient on include; 1.Eliquis. 2.Flomax. 3.Zyvox. 4.Metoprolol 25 b.i.d. 5.Gabapentin. 6.Lasix 20 mg daily. 7.Finasteride. Assessment And Plan: 1.Hyponatremia secondary to depletion, recovered, resolved. 2.Hypertension, controlled, optimal. 3.Hypokalemia, status post supplement, resolved. 4.Hypomagnesemia, status post supplement, resolved. 5.Deconditioning. Continue PT/OT. FIOR/MILENA Voice ID: [id number] Report ID: [id number]
[2022-07-31] MEDS ORDERED: ONDANSETRON 4 MG (ODT) TAB PO PRN (17:22)
[2022-07-31] MEDS: ROSUVASTATIN 10 MG TAB PO SCH (19:16)
[2022-07-31] MEDS: DOCUSATE NA/SENNA CONC 1 TAB PO SCH (19:16)
[2022-07-31] MEDS: hydrOXYzine HCL 25 MG TAB PO PRN (19:19)
[2022-07-31] MEDS: MELATONIN 5 MG TABLET PO PRN (19:20)
--- NOTE | 2022-07-31 21:23 | PN ---
Subjective: Mr. Chao is in his room. He is in no acute distress. Has no complaints. Review of Systems: Denies any significant fevers, chills, nausea, vomiting. His complaint today is that the Mccarthy mary ter, which was taken out yesterday had to be re-inserted due to his inability to urinate. Prior to r e-inserting it, a bladder scan indicated about 250 cc of urine was retained. Physical Examination: Vital Signs: Blood pressure 106/63, pulse of 100, respiratory rate of 16, temperature 97.1, ox satur ation 94%. General: Mr. Chao is sitting in a chair beside his bed. He is in no significant distress. HEENT: He appears normocephalic, atraumatic. Sclerae anicteric. Oropharynx is moist. Neck: Supple. Chest: Clear. Neurological: Diffuse weakness in the lower and upper extremities. No focal deficits. X-ray/imaging: No new x-rays or imaging. Laboratory Studies: No new laboratory studies. He is followed by the renal service and the urology service. Medications: Medications have been reviewed and are unchanged. Current Functional Status: Today, he did supine to sit transfers independently and multiple sit to s tand transfers with standby assistance using a rolling walker. He ambulated 125 feet twice, 250 feet once, and 175 feet once with contact guard assistance using a rolling walker. He ascended and desce nded 5 steps with bilateral handrails and contact guard assistance and mobilized wheelchair 125 feet with verbal cues for maneuvering. With speech therapy he demonstrated temporal orientation with 100% accuracy and spatial orientation with 0% accuracy for city, facility, and floor. He recalled 3/3 pi ctures after 5 and 10 minute increments and followed one-step commands with 100% accuracy. Progress Towards Rehabilitation Goals: Mr. Chao is making great progress towards his goals of becom ing independent with upper and lower body dressing, transferring, toileting, showering, and ambulatin g 250 feet with independence. Also was doing well going up steps. He is actually descending 5 steps now and his cognitive functioning is improving very well. Assessment: Mr. Chao is an 86-year-old patient with metabolic encephalopathy, which is improving. He has SIADH, obstructive uropathy, Enterococcus faecalis infection, renal insufficiency. Plan: 1.Continue with physical, occupational, and speech therapy. 2.His comorbid conditions are managed with the assistance of the renal service and the urology servi ce. He will continue with multiple medications, which have been listed. Comorbids That Are Continuing To Impact The Rehabilitation Process: At this point, he had to have hi s Mccarthy reinstated as he is unable to urinate voluntarily. That will be followed up outpatient by Dr Casa Curtis in Urology. TANA/MILENA Voice ID: [id number] Report ID: [id number]
--- NOTE | 2022-07-31 22:59 | PN ---
Date of Progress Note: 07/31/2022 Reason: Generalized weakness. Interval History: Patient is stable. He is ambulating with therapy. No fever. Since his back itch es a little, he has a hard time further quantifying that. We will check labs in the morning. If CRP is back to normal, then we might be able to forgo more imaging. Physical Examination: General: He is awake, alert. HEENT: Pupils are reactive. Ocular motion full. Muñoz full. Neurological: Strength is full. Sensation decreased distally. Knee jerks 2/4. Impression: 1.History of Guillain-[place]. 2.Lumbar spondylosis. Plan: Check labs in the morning. Liver function tests had been elevated and the reason for that is a little unclear. If the CRP is back to normal, we may be able to forgo yet another lumbar MRI given the possibility of diskitis on the initial noncontrast study, although that seems less likely as ava e goes on and the patient continues to improve. We will continue to follow with you. BENITA Voice ID: [id number] Report ID: [id number]
[2022-08-01 04:26] LABS: Hematocrit 32.3 % (39.6-49.0); Lymphocytes % 23.5 % (15.3-44.8); MCV 82.8 fL (80-100); MPV 6.8 fL (7.6-11.3); RBC Red Blood Cell Count 3.91 M/uL (4.33-5.43)
[2022-08-01 04:45] LABS: Albumin 2.7 g/dL (3.4-5.0); Bilirubin Direct 0.2 mg/dL (0-0.2); Bilirubin Indirect, Calculated 0.4 mg/dL (0.2-0.8); Bilirubin Total 0.6 mg/dL (0.2-1.0); C-Reactive Protein 35.4 mg/L (<3.00); Protein, Total 6.8 g/dL (6.4-8.2)
[2022-08-01] MEDS: GABAPENTIN 300 MG CAP PO SCH ×2 (08:10→19:42)
[2022-08-01] MEDS: APIXABAN 5 MG TABLET PO SCH ×2 (08:10→19:42)
[2022-08-01] MEDS: TAMSULOSIN 0.4 MG SR CAP PO SCH (08:10)
[2022-08-01] MEDS: DULOXETINE 30 MG CAP PO SCH (08:10)
[2022-08-01] MEDS: METOPROLOL TAR 25 MG TAB PO SCH ×2 (08:11→19:43)
[2022-08-01] MEDS: FINASTERIDE 5 MG TAB PO SCH (08:12)
[2022-08-01] MEDS: SODIUM CHLORIDE 1 GM TAB PO SCH ×2 (08:12→17:15)
[2022-08-01] MEDS: LIDOCAINE 4% PATCH TOP SCH (08:13)
[2022-08-01] MEDS: POTASSIUM CL SA 10 MEQ TAB PO SCH (08:13)
[2022-08-01] MEDS: RESTASIS OPTH SCH ×2 (08:43→19:42)
[2022-08-01] MEDS: MAGNESIUM OXIDE 400 MG TAB PO SCH ×2 (08:43→19:42)
[2022-08-01] MEDS: ENSURE ENLIVE 237 ML CAN PO SCH ×2 (08:43→19:43)
[2022-08-01 09:03] LABS: Potassium 4.1 mEq/L (3.5-5.1)
[2022-08-01 10:14] LABS: Prealbumin 18.3 mg/dL (20-40)
[2022-08-01] MEDS: FUROSEMIDE 20 MG TABLET PO SCH (10:16)
--- NOTE | 2022-08-01 10:24 | P.PN ---
Date of Service: 08/01/22 Chief complaint: AMS Subjective: Improving. Denies any complaints at this time. Completed 10 day course of Zyvox PO. Physical Examination Temp Pulse Resp BP Pulse Ox 97.8 F 90 18 106/60 92 08/01/22 06:54 08/01/22 10:16 08/01/22 06:54 08/01/22 10:16 08/01/22 06:54 General: Alert, In no apparent distress, Oriented x2 HEENT: Atraumatic, Normocephalic; hearing loss, wears hearing aids Neck: Supple, JVD not distended Respiratory: Normal air movement, Diminished bilaterally Cardiovascular: No edema, Normal pulses Gastrointestinal: Normal bowel sounds, Soft and benign, Non-distended Musculoskeletal: No clubbing. No swelling. Generalized weakness. Walker with assistance. Integumentary: No rashes, No breakdown Neurological: Normal speech, Normal tone, Normal affect Urinary: Lr catheter draining natan colored urine Studies Laboratory Data - Reviewed Microbiology Data - Reviewed Imagings Data: - MRI of Lumbar Spine 07/24: "Mild enhancement of the L3-4 disc with enhancement of the inferior vertebral endplate L3. This has a nonspecific appearance. An acute degenerative process is considered most likely. Low grade infectious/inflammatory process can also have this appearance but probably is less likely. If the patient continues to have symptoms to suggest infection then follow up MRI would be recommended." Medications List Reviewed: Yes Assessment and Plan Problem List CAD s/p PCI x 4 Atrial Fibrillation, Chronic Hyperlipidemia Hx Guillain-[place] Syndrome BPH Urinary Tract Infection Urinary Retention Moderate PCM Anemia * Allergies: Levofloxacin (hives), Penicillins (itching), Codeine * Urinary Tract Infection Urinary Retention - Urine culture 07/14: Enterococcus faecalis - Urology on case UA 07/24: [blood 2+, urobilinogen 2+, LE 75, RBC >50, WBC <5, Bacteria <20] Urine culture 07/24: No growth to date - Completed Zyvox PO x 10 days (started ) - Failed voiding trail 07/30, urinary retention. Lr catheter replaced. Recommendations - Completed 10 day course of Zyvox PO (07/22-07/31) for Enterococcus faecalis UTI - Current plan for patient to be discharged on Friday. Continue physical therapy. Supportive care and nutritional support as needed. - Per urology, patient to remain with lr catheter until follow up visit with urologist for urinary retention/BPH. Case discussed with Sandra Ledesma
[2022-08-01] MEDS ORDERED: HYDROCORTISONE 1 % CREAM 30GM TOP PRN (17:37)
[2022-08-01] MEDS: hydrOXYzine HCL 25 MG TAB PO PRN (18:41)
[2022-08-01] MEDS: DOCUSATE NA/SENNA CONC 1 TAB PO SCH (19:42)
[2022-08-01] MEDS: ROSUVASTATIN 10 MG TAB PO SCH (19:42)
[2022-08-01] MEDS: MELATONIN 5 MG TABLET PO PRN (19:42)
--- NOTE | 2022-08-01 23:50 | PN ---
Date of Progress Note: 08/01/2022 [facility] Progress Note Visit Time Of Service: 1:30 p.m. Subjective: Mr. Chao is in his room, doing well. He has no new complaints. Review of Systems: No fevers, chills, nausea, vomiting, myalgias, or arthralgias. His Mccarthy catheter was reinserted as he was unable to urinate. He is disappointed because of that, but he will follow up with Dr. Curtis of Urology for further testing and management. Physical Examination: Vital Signs: Blood pressure 116/62, pulse 100, respiratory rate 17, temperature 97.9, and oxygen sat uration 92%. General: Mr. Chao is resting comfortably. He is in no acute distress. HEENT: He is normocephalic, atraumatic. Sclerae anicteric. Oropharynx is pink and moist. Neck: Supple. Chest: Clear. Neurologic: He still has diffuse weakness of upper and lower extremities. He does not have focal de ficits. X-ray/imaging: No new x-ray or imaging. Laboratory Studies: White blood cell count 8.5, hemoglobin 10.6, and platelets 512. Sodium 133, pot assium 4.1, chloride 97, carbon dioxide 30, BUN 34, creatinine 1.08, glucose 119, calcium 9.7, magnes ium 2.0, and prealbumin 18.3. Medications: His medications have been reviewed and remain unchanged. Current Functional Status: Today he did ambulate 125 feet twice, 75 feet 3 times, and 125 feet twice with contact guard assistance using a rolling walker. He mobilized a wheelchair 125 feet with verba l cues. His upqoau-kx-xal transfers were done independently. Sit to stand and stand and pivot trans fers done independently with a rolling walker. With speech pathology, he recalled 3 items and sustai steffanie attention without significant difficulty. He required moderate assistance with sustained attenti on and maximal assistance recalling 3 of 3 items after 3 minutes. With his occupational therapy, he did sit to stand for a few minutes due to fatigue and knees buckling, but he was independent with sit to stand using a grab bar. Progress Towards Rehabilitation Goals: Mr. Chao is making good progress overall with his goals of b ecoming independent with upper and lower body dressing, transferring, toileting, showering, and perfo rming activities of daily living. He is also making good progress with his cognitive functioning and his ability to recall tasks and be safe while doing his activities. Assessment: Mr. Chao is an 86-year-old patient admitted with metabolic encephalopathy, which is imp roving very well. He has Enterococcus faecalis infection; renal insufficiency, which is improving; o bstructive uropathy and syndrome of inappropriate antidiuretic hormone secretion. Plan: 1.Continue with physical, occupational, and speech therapy for 3.5 hours, 5 of 7 days. 2.He is followed by Dr. Boucher, his neurologist; Dr. Rincon, the Renal doctor and the urologist. Comorbids That Continue To Impact His Rehabilitation Process: His Mccarthy catheter having been reinsta joey is somewhat limiting, but again he will be seen by Dr. Curtis after discharge and will have it a ddressed with additional studies and treatment as appropriate. TANA/MODL Voice ID: [id number] Report ID: [id number]
[2022-08-02] MEDS: RESTASIS OPTH SCH ×2 (07:43→19:53)
[2022-08-02] MEDS: DULOXETINE 30 MG CAP PO SCH (07:43)
[2022-08-02] MEDS: TAMSULOSIN 0.4 MG SR CAP PO SCH (07:43)
[2022-08-02] MEDS: APIXABAN 5 MG TABLET PO SCH ×2 (07:43→19:51)
[2022-08-02] MEDS: LIDOCAINE 4% PATCH TOP SCH (07:43)
[2022-08-02] MEDS: POTASSIUM CL SA 10 MEQ TAB PO SCH (07:44)
[2022-08-02] MEDS: METOPROLOL TAR 25 MG TAB PO SCH ×3 (07:44→19:59)
[2022-08-02] MEDS: GABAPENTIN 300 MG CAP PO SCH ×2 (07:45→19:53)
[2022-08-02] MEDS: FINASTERIDE 5 MG TAB PO SCH (07:45)
[2022-08-02] MEDS: SODIUM CHLORIDE 1 GM TAB PO SCH ×2 (07:45→16:55)
--- NOTE | 2022-08-02 08:29 | P.RH.PN ---
Estimated Length of Stay: 14 Expected Discharge Date: 08/06/22 Discharge Disposition Plan: Home Family Support: Yes Detention Goal: Mobility, Transfers, Self Care Vital Signs: Last Vital Signs Temp 97.5 F 08/02/22 06:58 Pulse 102 H 08/02/22 07:44 Resp 18 08/02/22 06:58 BP 110/67 08/02/22 07:44 Pulse Ox 91 08/02/22 06:58 Laboratory: Laboratory Last Values WBC 8.50 thou/uL (4.3-10.9) 08/01/22 04:11 RBC 3.91 M/uL (4.33-5.43) L 08/01/22 04:11 Hgb 10.6 g/dL (13.6-17.9) L 08/01/22 04:11 Hct 32.3 % (39.6-49.0) L 08/01/22 04:11 MCV 82.8 fL (80-100) 08/01/22 04:11 MCH 27.1 pg (27.0-35.0) 08/01/22 04:11 MCHC 32.7 g/dL (32.0-36.0) 08/01/22 04:11 RDW 13.5 % (12.1-15.2) 08/01/22 04:11 Plt Count 520 thou/uL (152-406) H 08/01/22 04:11 MPV 6.8 fL (7.6-11.3) L 08/01/22 04:11 Neutrophils % 66.5 % (41.7-73.7) 08/01/22 04:11 Lymphocytes % 23.5 % (15.3-44.8) 08/01/22 04:11 Monocytes % 5.5 % (3.3-12.3) 08/01/22 04:11 Eosinophils % 3.5 % (0-4.4) 08/01/22 04:11 Basophils % 1.0 % (0-1.3) 08/01/22 04:11 Absolute Neutrophils 5.7 K/uL (1.8-8.0) 08/01/22 04:11 Absolute Lymphocytes 2.0 K/uL (0.7-4.9) 08/01/22 04:11 Absolute Monocytes 0.5 K/uL (0.1-1.3) 08/01/22 04:11 Absolute Eosinophils 0.3 K/uL (0-0.5) 08/01/22 04:11 Absolute Basophils 0.1 K/uL (0-0.5) 08/01/22 04:11 Sodium 133 mEq/L (136-145) L 08/01/22 08:12 Potassium 4.1 mEq/L (3.5-5.1) 08/01/22 08:12 Chloride 97 mEq/L (98-107) L 08/01/22 08:12 Carbon Dioxide 30 mEq/L (21-32) 08/01/22 08:12 Anion Gap 10.1 mEq/L (5.0-15.0) 08/01/22 08:12 BUN 34 mg/dL (7-18) H 08/01/22 08:12 Creatinine 1.08 mg/dL (0.70-1.30) 08/01/22 08:12 Est GFR (CKD-EPI) 67 ml/min (=/>90) L 08/01/22 08:12 Glucose 119 mg/dL (74-106) H 08/01/22 08:12 Calcium 9.7 mg/dL (8.5-10.1) 08/01/22 08:12 Magnesium 2.0 mg/dL (1.6-2.4) 08/01/22 08:12 Total Bilirubin 0.6 mg/dL (0.2-1.0) 08/01/22 04:11 Direct Bilirubin 0.2 mg/dL (0-0.2) 08/01/22 04:11 Indirect Bilirubin 0.4 mg/dL (0.2-0.8) 08/01/22 04:11 AST 51 U/L (15-37) H 08/01/22 04:11 ALT 103 U/L (16-61) H 08/01/22 04:11 Alkaline Phosphatase 131 U/L (45-117) H 08/01/22 04:11 Ammonia Cancelled 07/26/22 Unknown C-Reactive Protein 35.40 mg/L (<3.00) H 08/01/22 04:11 Serum Total Protein 6.8 g/dL (6.4-8.2) 08/01/22 04:11 Albumin 2.7 g/dL (3.4-5.0) L 08/01/22 04:11 Globulin 4.1 g/dL (2.3-3.5) H 08/01/22 04:11 Albumin/Globulin Ratio 0.7 (1.1-1.8) L 08/01/22 04:11 Prealbumin 18.3 mg/dL (20-40) L 08/01/22 08:12 Urine Color Yellow (Yellow) 07/24/22 21:38 Urine Clarity Clear (Clear) 07/24/22 21:38 Urine pH 5.0 (5.0-7.0) 07/24/22 21:38 Ur Specific [place] 1.020 (1.005-1.030) 07/24/22 21:38 Glucose (UA)(Auto) Negative (Negative) 07/24/22 21:38 Urine Ketones Negative (Negative) 07/24/22 21:38 Urine Blood 2+ (Negative) H 07/24/22 21:38 Urine Nitrite Negative (Negative) 07/24/22 21:38 Urine Bilirubin Negative (Negative) 07/24/22 21:38 Urine Urobilinogen 2+ (Normal) H 07/24/22 21:38 Ur Leukocyte Esterase 75 Ben/uL (Negative) H 07/24/22 21:38 Urine RBC >50 /HPF (None Seen) H 07/24/22 21:38 Urine WBC <5 /HPF (<5) 07/24/22 21:38 Ur Squamous Epith Cells <5 /HPF (None Seen) 07/24/22 21:38 Urine Bacteria <20 /HPF (<20) 07/24/22 21:38 Hyaline Casts 0-5 /LPF (None Seen) 07/24/22 21:38 Urine Mucus 1+ /HPF (None Seen) 07/24/22 21:38 Urine Culture Reflexed Not needed 07/24/22 21:38 Urine Total Protein Trace (Negative) H 07/24/22 21:38 Acetaminophen < 2.5 mcg/mL (10.0-30.0) L 07/26/22 09:32 Weight: 145 lb 1.6 oz Wound Present: No Closed Surgical Incision Present: No Negative Pressure Wound Therapy Present: No Physician Update: Labs were reviewed and are stable. Mild anemia with improved liver function. He is continuing antibiotics for his UTI. He failed removal of the lr. He will follow-up with Dr. Curtis. He will have a leg bag for discharge. Doing better with clarity of speech. His attention may shift. Independent with bed mobility, transfers. Ambulating 150' with SBA. Up and down 10 steps with CGA. Toilet transfers GARRY. Summary: Patient's care plan and shelter goals have been reviewed and revised as necessary. Please see the Rehabilitation Signature page for all necessary signatures.
[2022-08-02] MEDS: ENSURE ENLIVE 237 ML CAN PO SCH ×2 (09:16→19:52)
[2022-08-02] MEDS: MAGNESIUM OXIDE 400 MG TAB PO SCH ×2 (09:16→19:52)
[2022-08-02] MEDS: FUROSEMIDE 20 MG TABLET PO SCH (09:59)
--- NOTE | 2022-08-02 12:15 | P.PN ---
Subjective Date of Service: 08/02/22 Subjective: No new changes Physical Examination - Vital Signs Temperature: 97.5 F Blood Pressure: 110/67 Pulse: 90 Respirations: 18 Pulse Ox (%): 91 - Physical Exam General: Other (chronically ill-appearing) HEENT: Atraumatic, Normocephalic Neck: Supple, JVD not distended Respiratory: Other (symmetric chest expansion) Cardiovascular: No rubs, No murmurs Gastrointestinal: Soft and benign, No guarding Musculoskeletal: No clubbing Integumentary: No warmth Neurological: Normal tone Urinary: Other (no bladder distention) External genitalia: Deferred Rectal: Deferred Assessment And Plan - Plan 1. Hyponatremia secondary to hydrochlorothiazide/SIADH/obstructive uropathy. Serum Na 133. Cont lasix + salt tablet. Encourage by mouth solid food intake. 2. Hypertension. Continue current medication regimen. 3. Obstructive uropathy. Continue finasteride. Continue Mccarthy. Follow up with Urology. 4. Hypomagnesemia. We will supplement the patient. 5. Deconditioning. PT/OT
[2022-08-02] MEDS: ROSUVASTATIN 10 MG TAB PO SCH (19:53)
[2022-08-02] MEDS: DOCUSATE NA/SENNA CONC 1 TAB PO SCH (19:54)
[2022-08-02] MEDS: MELATONIN 5 MG TABLET PO PRN (19:54)
--- NOTE | 2022-08-02 23:00 | PN ---
Subjective: The patient is sitting in wheelchair, had a new Mccarthy catheter insertion. Laboratory Data: Reviewed. Objective: Vital Signs: Reviewed. Lungs: Basal crackles. Heart: S1, S2 regular. Abdomen: Soft, nontender. Bowel sounds present. Extremities: No edema. Assessment/plan: Urinary retention, status post urinary tract infection treatment. The patient is d oing better. Continue supportive care and monitor for signs of infection with WBC and fever trends. NF/MODL Voice ID: [id number] Report ID: [id number]
[2022-08-03] MEDS: LIDOCAINE 4% PATCH TOP SCH (08:01)
[2022-08-03] MEDS: TAMSULOSIN 0.4 MG SR CAP PO SCH (08:02)
[2022-08-03] MEDS: APIXABAN 5 MG TABLET PO SCH (08:03)
[2022-08-03] MEDS: POTASSIUM CL SA 10 MEQ TAB PO SCH (08:03)
[2022-08-03] MEDS: FINASTERIDE 5 MG TAB PO SCH (08:03)
[2022-08-03] MEDS: GABAPENTIN 300 MG CAP PO SCH (08:03)
[2022-08-03] MEDS: DULOXETINE 30 MG CAP PO SCH (08:03)
[2022-08-03] MEDS: SODIUM CHLORIDE 1 GM TAB PO SCH (08:03)
[2022-08-03] MEDS: MAGNESIUM OXIDE 400 MG TAB PO SCH (08:04)
[2022-08-03] MEDS: METOPROLOL TAR 25 MG TAB PO SCH (08:04)
[2022-08-03] MEDS: FUROSEMIDE 20 MG TABLET PO SCH (08:05)
[2022-08-03 08:06] VITALS: BP 111/60
[2022-08-03] MEDS: ENSURE ENLIVE 237 ML CAN PO SCH (08:06)
[2022-08-03] MEDS: RESTASIS OPTH SCH (08:14)
[2022-08-03 08:16] VITALS: TEMP 97.3
== END 2022-08-03 09:45 | disposition home or self-care (01) | DRG 947 ==
LOC: 5TH 07-24 11:05
PROVIDERS: ADMIT Psychiatry & Neurology Neurology with Special Qualifications in Child Neurology; ATTEND Psychiatry & Neurology Neurology with Special Qualifications in Child Neurology
DX: R53.81 Other malaise (principal); G93.41 Metabolic encephalopathy; N39.0 Urinary tract infection, site not specified; I48.19 Other persistent atrial fibrillation; E44.0 Moderate protein-calorie malnutrition; E22.2 Syndrome of inappropriate secretion of antidiuretic hormone; I25.10 Atherosclerotic heart disease of native coronary artery without angina pectoris; I48.91 Unspecified atrial fibrillation; M54.9 Dorsalgia, unspecified; G89.29 Other chronic pain; I10 Essential (primary) hypertension; E78.5 Hyperlipidemia, unspecified; R33.9 Retention of urine, unspecified; F32.A Depression, unspecified; G47.00 Insomnia, unspecified; R41.0 Disorientation, unspecified; D64.9 Anemia, unspecified; R53.1 Weakness; M48.04 Spinal stenosis, thoracic region; E87.6 Hypokalemia; N13.9 Obstructive and reflux uropathy, unspecified; E83.42 Hypomagnesemia; M47.26 Other spondylosis with radiculopathy, lumbar region; N40.1 Benign prostatic hyperplasia with lower urinary tract symptoms; N45.1 Epididymitis; B95.2 Enterococcus as the cause of diseases classified elsewhere; G62.9 Polyneuropathy, unspecified; R51.9 Headache, unspecified; Z68.23 Body mass index [BMI] 23.0-23.9, adult
CPT/HCPCS: 36415; 72158; 80048; 80076; 81001; 83735; 84134; 85025; 86140; 87086; 87088; 92523; 94010; 97110; 97116; 97129; 97161; 97165; 97530; 97542; A9577; G0480; J2001; J3475

== ENCOUNTER 2022-11-25 20:37 | Emergency (ER) | payer OTHER ==
--- OUTSIDE RECORDS SUMMARY | 2022-11-25 20:45 | XMS REPORT | Continuity of Care Document ---
:1935 Author Organization [facility] t Address [address] [place] [address] [address] [place] [address] Care Team Providers Name Role Phone Edwardo Yu MD Primary Care Physician Maria Guadalupe Toussaint Attending Clinician Unavailable Tariq Boucher Attending Clinician Doctor Unassigned, Salome Attending Clinician Unavailable Maria Guadalupe Toussaint MD Attending Clinician ALLEGRA DUBOSE Attending Clinician Unavailable [...] Policy Number Effective Date Expiration Date Ward JUDGE 53 [id number] [facility] Problems Condition Condition Condition Status Onset Resolution Last Treating Co mments Source Name Details Category Date Date Treatment Clinician Date Acute Acute Disease Active Methodi cholecysti cholecysti - st tis tis 00:00: Hospita 00 l 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 00:00: Hospita stenosis stenosis 00 l 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 04-06 st s with s with 00:00: Hospita radiculopa radiculopa 00 l thy, thy, lumbar lumbar region region Transient Problem Active 2022-11-08 Me moria ischemic Transient 05-05 16:50:15 l attack ischemic 00:00: [place]uco (disorder) attack 00 (disorder) Active 05/05/2015 Problem 11/08/2022 [facility] 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 05-05 16:50:15 l erosis in erosis in 00:00: Herm sly [place] 00 artery artery (disorder) (disorder) Active 05/05/2015 Problem 11/08/2022 [facility] Essential Essential Problem Active 2022-11-08 Memoria hypertensi hypertensi 05-05 16:50:15 l on on 00:00: [place] (disorder) (disorder) 00 Active 05/05/2015 Problem 11/08/2022 [facility] Hyperlipid Hyperlipi Problem Active 2022-11-08 Memoria emia demia - 16:50:15 l (disorder) (disorder) 00:00: He rmann Active 00 05/05/2015 Problem 11/08/2022 [facility] Neuropathy Neuropath Problem Active 2016-2022-11-08 Memoria (disorder) y 1-19 16:50:15 l (disorder) 00:00: Kevin n Active 00 03/28/2015 Problem 11/08/2022 [facility] Lumbar Lumbar Problem Active 2014-032022-11-08 [facility] radiculopa radiculopa 0-13 16:50:15 l thy thy 00:00: [place] (disorder) (disorder) 00 Active 2014 Problem 11/08/2022 [facility] Prediabete Prediabete Disease Active U inés lanza s 2 ity of 00:00: [place] 00 [facility] Urinary Complicate Problem Comm on tract d UTI Spirit infectious (urinary - [facility] I disease tract St infection) [facility] Epididymit Epididymit Problem C ommon is is [facility] [id number] BPH loc w Problem Com mon urin [facility] obs/TS [facility] [id number] History of Problem C ommon [id number] febrile [facility] urinary - [facility] tract [facility] infection 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 Amnesia Amnesia Problem Active 2022-11-08 Me moria (finding) (finding) 16:50:15 l Active [place] Problem 11/08/2022 [facility] Cervical Cervical Problem Active 2022-11-08 Memoria radiculopa radiculopa 16:50:15 l thy thy [place] (disorder) (disorder) Active Problem 11/08/2022 [facility] Confusiona Confusion Problem Active 2022-11-08 Memoria l state al state 16:50:15 l (disorder) (disorder) He rmann Active Problem 11/08/2022 [facility] Diplopia Diplopia Problem Active 2022-11-08 Memoria (disorder) (disorder) 16:50:15 l Active [place]uco Problem 11/08/2022 [facility] Fracture Fracture Problem Active 2022-11-08 Memoria of rib of rib 16:50:15 l (disorder) (disorder) He rmann Active Problem 11/08/2022 [facility] Knee pain Knee pain Problem Active 2022-11-08 Memoria (finding) (finding) 16:50:15 l Active [place] Problem 11/08/2022 [facility] Muscle Muscle Problem Active 2022-11-08 Turner nereida pain pain 16:50:15 l (finding) (finding) Herm sly Active Problem 11/08/2022 [facility] 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 He rmann (disorder) (disorder) Active Problem 11/08/2022 [facility] Recurrent Problem Active 2022-11-08 Me moria falls Recurrent 16:50:15 l (finding) falls [place] (finding) Active Problem 11/08/2022 [facility] Rib pain Rib pain Problem Active 2022-11-08 Memoria (finding) (finding) 16:50:15 l Active Cuco Problem 11/08/2022 [facility] Visual Visual Problem Active 2022-11-08 Turner nereida impairment impairment 16:50:15 l (disorder) (disorder) He rmann Active Problem 11/08/2022 [facility] Glaucoma Glaucoma Problem Active 2022-11-08 Memoria (disorder) (disorder) 16:50:15 l Active Cuco Problem 11/08/2022 [facility] Liver Liver Problem Active 2022-11-08 Memor ia function function 16:50:15 l test test [place] increased increased Active Problem 11/08/2022 [facility] Abdominal Abdominal Problem Active 2022-11-08 Memoria pain pain 16:50:15 l (finding) (finding) Ra sly Active Problem 11/08/2022 [facility] Myoclonus Myoclonus Problem Resolve 2021-10-26 2021-10-26 Memoria (finding) (finding) d 09-27 04:51:42 04:51:42 l Resolved 00:00: [place] 09/28/2015 00 Problem 10/26/2021 [facility] Allergies, Adverse Reactions, Alerts Allergy Allergy Status Severity Reaction(s) Onset Inactive Treating Comm ents Source Name Type Date Date Clinician 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 03-[address] Vaccines adverse 00:00: Syndrome Hospi ta [...] ity of 00:00: [place] 00 [facility] [id number] Drug Active Unknown Common allergy [facility] codeine codeine Active Unknown Common [facility] Family History Family Member Diagnosis Comments Start Date Stop Date Source Natural brother Emphysema [facility] Natural brother Heart disease [facility] Natural father Cerebral aneurysm Met [facility] Natural mother [facility] Social History Social Habit Start Date Stop Date Quantity Comments Source History of Tobacco [facility] Use [facility] History [facility] o f Alcohol Frequency [facility] edical Branch History [facility] University o f Alcohol Std Drinks [facility] History [facility] o f Alcohol Binge [place] [facility] [place] Gender identity [facility] Sexual orientation [facility] Exposure to 2021-10-14 2021-10-24 Not sure University of SARS-CoV-2 (event) 00:00:00 19:11:00 [facility] Tobacco use and 2021-10-24 2021-10-24 Smokeless tobacco Un iversity of exposure 00:00:00 00:00:00 non-user [facility] History of Social 2018-10-28 2018-10-[address] function 00:00:00 00:00:00 Hospital Cigarettes smoked 2018-03-26 2018-03-[address] current (pack per 00:00:00 00:00:00 Hospita l day) - Reported Cigarette 2018-03-26 2018-03-26 [facility] pack-years 00:00:00 00:00:00 Hospital Alcohol intake 2018-03-26 2018-03-26 Current drinker of Me thodist 00:00:00 00:00:00 alcohol (finding) Hospita l Alcohol Comment 2018-02-27 2018-02-[address] 00:00:00 00:00:00 Hospital Sex Assigned At [birth year] [facility] kes 00:00:00 00:00:00 [facility] Smoking Status Start Date Stop Date Source Tobacco smoking status 2022-11-05 13:29:05 2022-11-05 13:29:05 [facility] Medications Ordered Filled Start Stop Current Ordering Indication Dosage Frequency Signature Comments Components Source Medication Medication Date Date Medication? Clinician (SIG) Name Name latanoprost Yes QPM, 0 Turner nereida ophthalmic 7-12 Refill(s) l 18:50: [place]uco 00 latanoprost 2022- Yes QPM, 0 Turner nereida ophthalmic 7-12 Refill(s) l 18:50: [place] 00 gabapentin Yes See Memoria 600 mg oral 7-12 Instructio l tablet 18:49: ns, 03/11 [place]uco 00 tab PO TID, # 90 tab, 1 Refill(s), Pharmacy: [facility] [id number], 163.83, cm, 09/18/22 13:29:00 CDT, Height, 66.364, kg, 09/18/22 13:29:00 CDT, Weight gabapentin 2023-0 Yes See Memoria 600 mg oral 7-12 Instructio l tablet 18:49: ns, 03/11 [place] 00 tab PO TID, # 90 tab, 1 Refill(s), Pharmacy: [facility] [id number], 163.83, cm, 09/18/22 13:29:00 CDT, Height, 66.364, kg, 09/18/22 13:29:00 CDT, Weight DULoxetine 2023-0 Yes 30 mg = 1 Me moria 30 mg oral 6-16 cap, PO, l delayed 23:32: BID, # 60 Elaine nn release 00 cap, 3 capsule Refill(s), Pharmacy: [facility] [id number], 165.1, cm, 05/28/22 14:14:00 CDT, Height, 70.455, kg, 05/28/22 14:14:00 CDT, Weight DULoxetine 2023-0 Yes 30 mg = 1 Me moria 30 mg oral 6-16 cap, PO, l delayed 23:32: BID, # 60 Elaine nn release 00 cap, 3 capsule Refill(s), Pharmacy: [facility] [id number], 165.1, cm, 05/28/22 14:14:00 CDT, Height, 70.455, kg, 05/28/22 14:14:00 CDT, Weight gabapentin 2023-0 Yes See Memoria 600 mg oral 3-03 Instructio l tablet 17:03: ns, TAKE [place]uco 00 ONE TABLET BY MOUTH THREE TIMES A DAY, # 270 tab, 1 Refill(s), Pharmacy: [facility] [id number], 162.56, cm, 01/23/22 11:34:00 [employer], Height, 75.085, kg, 01/23/22 11:34:00 [employer], Weight gabapentin 2023-0 Yes See Memoria 600 mg oral 3-03 Instructio l tablet 17:03: ns, TAKE [place] 00 ONE TABLET BY MOUTH THREE TIMES A DAY, # 270 tab, 1 Refill(s), Pharmacy: [facility] [id number], 162.56, cm, 01/23/22 11:34:00 [employer], Height, 75.085, kg, 01/23/22 11:34:00 [employer], Weight gabapentin 2022-0 Yes See Memoria 600 mg oral 3-03 Instructio l tablet 17:03: ns, TAKE [place] 00 ONE TABLET BY MOUTH THREE TIMES A DAY, # 270 tab, 1 Refill(s), Pharmacy: [facility] [id number], 162.56, cm, 01/23/22 11:34:00 [employer], Height, 75.085, kg, 01/23/22 11:34:00 [employer], Weight gabapentin 2022-0 Yes See Memoria 600 mg oral 3-03 Instructio l tablet 17:03: ns, TAKE Cuco 00 ONE TABLET BY MOUTH THREE TIMES A DAY, # 270 tab, 1 Refill(s), Pharmacy: [facility] [id number], 162.56, cm, 01/23/22 11:34:00 [employer], Height, 75.085, kg, 01/23/22 11:34:00 [employer], Weight DULoxetine 2021-03 Yes See Memoria 30 mg oral 1-28 Instructio l delayed 20:13: ns, TAKE Kevin n release 00 ONE capsule CAPSULE BY MOUTH DAILY, # 30 unknown unit, 5 Refill(s), Pharmacy: [facility] [id number], 162.56, cm, 01/23/22 11:34:00 [employer], Height, 75.085, kg, 01/23/22 11:34:00 [employer], Weight DULoxetine 2021-03 Yes See Memoria 30 mg oral 1-28 Instructio l delayed 20:13: ns, TAKE Kevin n release 00 ONE capsule CAPSULE BY MOUTH DAILY, # 30 unknown unit, 5 Refill(s), Pharmacy: [facility] [id number], 162.56, cm, 01/23/22 11:34:00 [employer], Height, 75.085, kg, 01/23/22 11:34:00 [employer], Weight DULoxetine 2021-03 Yes See Memoria 30 mg oral 1-28 Instructio l delayed 20:13: ns, TAKE Kevin n release 00 ONE capsule CAPSULE BY MOUTH DAILY, # 30 unknown unit, 5 Refill(s), Pharmacy: [facility] [id number], 162.56, cm, 01/23/22 11:34:00 [employer], Height, 75.085, kg, 01/23/22 11:34:00 [employer], Weight DULoxetine 2021-03 Yes See Memoria 30 mg oral 1-28 Instructio l delayed 20:13: ns, TAKE Kevin n release 00 ONE capsule CAPSULE BY MOUTH DAILY, # 30 unknown unit, 5 Refill(s), Pharmacy: [facility] [id number], 162.56, cm, 01/23/22 11:34:00 [employer], Height, 75.085, kg, 01/23/22 11:34:00 [employer], Weight finasteride 2021-03 Yes 0 Memori a 5 mg oral 1-16 Refill(s) l tablet 17:35: [place]uc[place] rosuvastati 2021-03 Yes 20 mg = 1 M emoria n 20 mg 1-16 tab, PO, l oral tablet 17:35: Bedtime, # Cuco 00 30 tab, 0 Refill(s) finasteride 2021-03 Yes 0 Memori a 5 mg oral 1-16 Refill(s) l tablet 17:35: [place] rosuvastati 2021-03 Yes 20 mg = 1 M emoria n 20 mg 1-16 tab, PO, l oral tablet 17:35: Bedtime, # Cuco 00 30 tab, 0 Refill(s) finasteride 2021-03 Yes 0 Memori a 5 mg oral 1-16 Refill(s) l tablet 17:35: [place]uc[place] rosuvastati 2021-03 Yes 20 mg = 1 M emoria n 20 mg 1-16 tab, PO, l oral tablet 17:35: Bedtime, # Cuco 00 30 tab, 0 Refill(s) finasteride 2021-03 Yes 0 Memori a 5 mg oral 1-16 Refill(s) l tablet 17:35: [place] 00 rosuvastati 2021-03 Yes 20 mg = 1 M emoria n 20 mg 1-16 tab, PO, l oral tablet 17:35: Bedtime, # [place] 00 30 tab, 0 Refill(s) DULoxetine 2022-0 Yes See Memoria 30 mg oral 8-08 Instructio l delayed 17:12: ns, TAKE Kevin n release 00 ONE capsule CAPSULE BY MOUTH DAILY, # 30 unknown unit, 2 Refill(s), Pharmacy: [facility] [id number], 162.56, cm, 04/18/21 14:08:00 [employer], Height, 75, kg, 04/18/21 14:08:00 [employer], Weight DULoxetine 2022-0 Yes See Memoria 30 mg oral 8-08 Instructio l delayed 17:12: ns, TAKE Kevin n release 00 ONE capsule CAPSULE BY MOUTH DAILY, # 30 unknown unit, 2 Refill(s), Pharmacy: [facility] [id number], 162.56, cm, 04/18/21 14:08:00 [employer], Height, 75, kg, 04/18/21 14:08:00 [employer], Weight DULoxetine 202-0 Yes See Memoria 30 mg oral 8-08 Instructio l delayed 17:12: ns, TAKE Kevin n release 00 ONE capsule CAPSULE BY MOUTH DAILY, # 30 unknown unit, 2 Refill(s), Pharmacy: [facility] [id number], 162.56, cm, 04/18/21 14:08:00 [employer], Height, 75, kg, 04/18/21 14:08:00 [employer], Weight DULoxetine 2021-0 Yes See Memoria 30 mg oral 8-08 Instructio l delayed 17:12: ns, TAKE Kevin n release 00 ONE capsule CAPSULE BY MOUTH DAILY, # 30 unknown unit, 2 Refill(s), Pharmacy: [facility] [id number], 162.56, cm, 04/18/21 14:08:00 [employer], Height, 75, kg, 04/18/21 14:08:00 [employer], Weight gabapentin 2022-0 Yes See Memoria 600 mg oral 7-19 Instructio l tablet 15:32: ns, TAKE [place]uc[place] 00 ONE TABLET BY MOUTH THREE TIMES A DAY, # 270 tab, 1 Refill(s), Pharmacy: [facility] [id number], 162.56, cm, 04/18/21 14:08:00 [employer], Height, 75, kg, 04/18/21 14:08:00 [employer], Weight gabapentin 2022-0 Yes See Memoria 600 mg oral 7-19 Instructio l tablet 15:32: ns, TAKE [place]uc[place] 00 ONE TABLET BY MOUTH THREE TIMES A DAY, # 270 tab, 1 Refill(s), Pharmacy: [facility] [id number], 162.56, cm, 04/18/21 14:08:00 [employer], Height, 75, kg, 04/18/21 14:08:00 [employer], Weight gabapentin 2022-0 Yes See Memoria 600 mg oral 7-19 Instructio l tablet 15:32: ns, TAKE [place]uc[place] 00 ONE TABLET BY MOUTH THREE TIMES A DAY, # 270 tab, 1 Refill(s), Pharmacy: [facility] [id number], 162.56, cm, 04/18/21 14:08:00 [employer], Height, 75, kg, 04/18/21 14:08:00 [employer], Weight gabapentin 2022-0 Yes See Memoria 600 mg oral 7-19 Instructio l tablet 15:32: ns, TAKE [place]uc[place] 00 ONE TABLET BY MOUTH THREE TIMES A DAY, # 270 tab, 1 Refill(s), Pharmacy: [facility] [id number], 162.56, cm, 04/18/21 14:08:00 [employer], Height, 75, kg, 04/18/21 14:08:00 [employer], Weight gabapentin 2022-0 Yes See Memoria 600 mg oral 7-19 Instructio l tablet 15:32: ns, TAKE Cuco 00 ONE TABLET BY MOUTH THREE TIMES A DAY, # 270 tab, 1 Refill(s), Pharmacy: [facility] [id number], 162.56, cm, 04/18/21 14:08:00 [employer], Height, 75, kg, 04/18/21 14:08:00 [employer], Weight gabapentin 2022-0 Yes See Memoria 600 mg oral 7-19 Instructio l tablet 15:32: ns, TAKE [place] 00 ONE TABLET BY MOUTH THREE TIMES A DAY, # 270 tab, 1 Refill(s), Pharmacy: [facility] [id number], 162.56, cm, 04/18/21 14:08:00 [employer], Height, 75, kg, 04/18/21 14:08:00 [employer], Weight WheelChair 2022-0 Yes 1 ea, Memori a 7-13 MISC, l 14:33: ONCALL, # [place] 00 1 ea, 0 Refill(s), 162.56, cm, 04/18/21 14:08:00 [employer], Height, 75, kg, 04/18/21 14:08:00 [employer], Weight WheelChair 0 Yes 1 ea, Memori a 7-13 MISC, l 14:33: ONCALL, # [place] 00 1 ea, 0 Refill(s), 162.56, cm, 04/18/21 14:08:00 [employer], Height, 75, kg, 04/18/21 14:08:00 [employer], Weight WheelChair 0 Yes 1 ea, Memori a 7-13 MISC, l 14:33: ONCALL, # [place]uco 00 1 ea, 0 Refill(s), 162.56, cm, 04/18/21 14:08:00 [employer], Height, 75, kg, 04/18/21 14:08:00 [employer], Weight WheelChair Yes 1 ea, Memori a 7-13 MISC, l 14:33: ONCALL, # [place]uco 00 1 ea, 0 Refill(s), 162.56, cm, 04/18/21 14:08:00 [employer], Height, 75, kg, 04/18/21 14:08:00 [employer], Weight WheelChair 0 Yes 1 ea, Memori a 7-13 MISC, l 14:33: ONCALL, # Cuco 00 1 ea, 0 Refill(s), 162.56, cm, 04/18/21 14:08:00 [employer], Height, 75, kg, 04/18/21 14:08:00 [employer], Weight WheelChair Yes 1 ea, Memori a 7-13 MISC, l 14:33: ONCALL, # [place] 00 1 ea, 0 Refill(s), 162.56, cm, 04/18/21 14:08:00 [employer], Height, 75, kg, 04/18/21 14:08:00 [employer], Weight baclofen 10 No 10 mg = 1 M emoria mg oral 7-13 tab, PO, l tablet 14:27: BID, # 60 Kevin n 00 tab, 2 Refill(s), Pharmacy: [facility] [id number], 162.56, cm, 04/18/21 14:08:00 [employer], Height, 75, kg, 04/18/21 14:08:00 [employer], Weight baclofen 10 2-0 No 10 mg = 1 M emoria mg oral 7-13 tab, PO, l tablet 14:27: BID, # 60 Kevin n 00 tab, 2 Refill(s), Pharmacy: [facility] [id number], 162.56, cm, 04/18/21 14:08:00 [employer], Height, 75, kg, 04/18/21 14:08:00 [employer], Weight baclofen 10 2-0 No 10 mg = 1 M emoria mg oral 7-13 tab, PO, l tablet 14:27: BID, # 60 Kevin n 00 tab, 2 Refill(s), Pharmacy: [facility] [id number], 162.56, cm, 04/18/21 14:08:00 [employer]OC, Height, 75, kg, 04/18/21 14:08:00 [employer], Weight baclofen 10 2021-0 No 10 mg = 1 M emoria mg oral 7-13 tab, PO, l tablet 14:27: BID, # 60 Kevin n 00 tab, 2 Refill(s), Pharmacy: [facility] [id number], 162.56, cm, 04/18/21 14:08:00 [employer], Height, 75, kg, 04/18/21 14:08:00 [employer], Weight baclofen 10 2021-0 No 10 mg = 1 M emoria mg oral 7-13 tab, PO, l tablet 14:27: BID, # 60 Kevin n 00 tab, 2 Refill(s), Pharmacy: [facility] [id number], 162.56, cm, 04/18/21 14:08:00 [employer], Height, 75, kg, 04/18/21 14:08:00 [employer], Weight baclofen 10 2-0 No 10 mg = 1 M emoria mg oral 7-13 tab, PO, l tablet 14:27: BID, # 60 Kevin n 00 tab, 2 Refill(s), Pharmacy: [facility] [id number], 162.56, cm, 04/18/21 14:08:00 [employer], Height, 75, kg, 04/18/21 14:08:00 [employer], Weight Finasteride Finasteride 2021-0 2022- No 1{table QD Finasterid 5 MG 5 MG 07-26 t} e 5 MG 00:00: 00:00 00 :00 Tamsulosin Tamsulosin 2021-0 2022- No 1{capsu QD Tamsulosin HCl 0.4 MG HCl 0.4 MG 07-26 le} HCl 0.4 MG 00:00: 00:00 00 :00 gabapentin 2022-0 Yes 900mg Take 900 Un sabiha 300 mg 3-16 mg by ity of capsule 10:49: mouth 3 [place] [address] (three) Medical times Branch daily. gabapentin 2022-0 Yes 900mg Take 900 Un sabiha 300 mg 3-16 mg by ity of capsule 10:49: mouth 3 [place] [address] (three) Medical times Branch daily. gabapentin 2022-0 Yes 900mg Take 900 Un sabiha 300 mg 3-16 mg by ity of capsule 10:49: mouth 3 [place] [address] (three) Medical times Branch daily. gabapentin 2022-0 Yes 900mg Take 900 Un sabiha 300 mg 3-16 mg by ity of capsule 10:49: mouth 3 [place] [address] (three) Medical times Branch daily. gabapentin 2022-0 Yes 900mg Take 900 Un sabiha 300 mg 3-16 mg by ity of capsule 10:49: mouth 3 [place] [address] (three) Medical times Branch daily. gabapentin 2022-0 Yes 900mg Take 900 Un sabiha 300 mg 3-16 mg by ity of capsule 10:49: mouth 3 [place] [address] (three) Medical times Branch daily. gabapentin 2022-0 Yes 900mg Take 900 Un sabiha 300 mg 3-16 mg by ity of capsule 10:49: mouth 3 [place] [address] (three) Medical times Branch daily. gabapentin 2022-0 Yes 900mg Take 900 Un sabiha 300 mg 3-16 mg by ity of capsule 10:49: mouth 3 [place] [address] (three) Medical times Branch daily. predniSONE 2022-0 Yes 5 mg = 1 Mem oria 5 mg oral 2-09 tab, PO, l tablet 20:54: Daily, # Cuco 00 30 tab, 3 Refill(s), Pharmacy: [facility] [id number], 162.56, cm, 04/18/21 14:08:00 [employer], Height, 75, kg, 04/18/21 14:08:00 [employer], Weight predniSONE 2022-0 Yes 5 mg = 1 Mem oria 5 mg oral 2-09 tab, PO, l tablet 20:54: Daily, # [place] 00 30 tab, 3 Refill(s), Pharmacy: [facility] [id number], 162.56, cm, 04/18/21 14:08:00 [employer], Height, 75, kg, 04/18/21 14:08:00 [employer], Weight predniSONE 2022-0 Yes 5 mg = 1 Mem oria 5 mg oral 2-09 tab, PO, l tablet 20:54: Daily, # [place] 00 30 tab, 3 Refill(s), Pharmacy: [facility] [id number], 162.56, cm, 04/18/21 14:08:00 [employer], Height, 75, kg, 04/18/21 14:08:00 [employer], Weight predniSONE 2022-0 Yes 5 mg = 1 Mem oria 5 mg oral 2-09 tab, PO, l tablet 20:54: Daily, # [place] 00 30 tab, 3 Refill(s), Pharmacy: [facility] [id number], 162.56, cm, 04/18/21 14:08:00 [employer], Height, 75, kg, 04/18/21 14:08:00 [employer], Weight predniSONE 2022-0 Yes 5 mg = 1 Mem oria 5 mg oral 2-09 tab, PO, l tablet 20:54: Daily, # [place] 00 30 tab, 3 Refill(s), Pharmacy: [facility] [id number], 162.56, cm, 04/18/21 14:08:00 [employer], Height, 75, kg, 04/18/21 14:08:00 [employer]OC, Weight predniSONE 2022-0 Yes 5 mg = 1 Mem oria 5 mg oral 2-09 tab, PO, l tablet 20:54: Daily, # [place] 00 30 tab, 3 Refill(s), Pharmacy: [facility] [id number], 162.56, cm, 04/18/21 14:08:00 [employer], Height, 75, kg, 04/18/21 14:08:00 [employer], Weight DULoxetine 1-0 Yes See Memoria 30 mg oral 9-05 Instructio l delayed 20:18: ns, TAKE Kevin n release 00 ONE capsule CAPSULE BY MOUTH DAILY, # 30 unknown unit, 5 Refill(s), Pharmacy: [facility] [id number], 162.56, cm, 04/06/20 9:15:00 [employer], Height, 74.091, kg, 04/06/20 9:15:00 [employer], Weight DULoxetine 2020-0 Yes See Memoria 30 mg oral 9-05 Instructio l delayed 20:18: ns, TAKE Kevin n release 00 ONE capsule CAPSULE BY MOUTH DAILY, # 30 unknown unit, 5 Refill(s), Pharmacy: [facility] [id number], 162.56, cm, 04/06/20 9:15:00 [employer]OC, Height, 74.091, kg, 04/06/20 9:15:00 [employer], Weight DULoxetine 2020-0 Yes See Memoria 30 mg oral 9-05 Instructio l delayed 20:18: ns, TAKE Kevin n release 00 ONE capsule CAPSULE BY MOUTH DAILY, # 30 unknown unit, 5 Refill(s), Pharmacy: [facility] [id number], 162.56, cm, 04/06/20 9:15:00 [employer]OC, Height, 74.091, kg, 04/06/20 9:15:00 [employer], Weight DULoxetine 2020-0 Yes See Memoria 30 mg oral 9-05 Instructio l delayed 20:18: ns, TAKE Kevin n release 00 ONE capsule CAPSULE BY MOUTH DAILY, # 30 unknown unit, 5 Refill(s), Pharmacy: [facility] [id number], 162.56, cm, 04/06/20 9:15:00 [employer], Height, 74.091, kg, 04/06/20 9:15:00 [employer], Weight DULoxetine 2020-0 Yes See Memoria 30 mg oral 9-05 Instructio l delayed 20:18: ns, TAKE Kevin n release 00 ONE capsule CAPSULE BY MOUTH DAILY, # 30 unknown unit, 5 Refill(s), Pharmacy: [facility] [id number], 162.56, cm, 04/06/20 9:15:00 [employer], Height, 74.091, kg, 04/06/20 9:15:00 [employer], Weight DULoxetine 2020-0 Yes See Memoria 30 mg oral 9-05 Instructio l delayed 20:18: ns, TAKE Kevin n release 00 ONE capsule CAPSULE BY MOUTH DAILY, # 30 unknown unit, 5 Refill(s), Pharmacy: [facility] [id number], 162.56, cm, 04/06/20 9:15:00 [employer], Height, 74.091, kg, 04/06/20 9:15:00 [employer], Weight DULoxetine 202-0 Yes See Memoria 30 mg oral 9-05 Instructio l delayed 20:18: ns, TAKE Kevin n release 00 ONE capsule CAPSULE BY MOUTH DAILY, # 30 unknown unit, 5 Refill(s), Pharmacy: [facility] [id number], 162.56, cm, 04/06/20 9:15:00 [employer], Height, 74.091, kg, 04/06/20 9:15:00 [employer], Weight DULoxetine 2020-0 Yes See Memoria 30 mg oral 3-04 Instructio l delayed 19:26: ns, TAKE Kevin n release 00 ONE capsule CAPSULE BY MOUTH DAILY, # 30 unknown unit, 5 Refill(s), Pharmacy: [facility] [id number], 162.56, cm, 04/06/20 9:15:00 [employer], Height, 74.091, kg, 04/06/20 9:15:00 [employer], Weight DULoxetine 2020-0 Yes See Memoria 30 mg oral 3-04 Instructio l delayed 19:26: ns, TAKE Kevin n release 00 ONE capsule CAPSULE BY MOUTH DAILY, # 30 unknown unit, 5 Refill(s), Pharmacy: [facility] [id number], 162.56, cm, 04/06/20 9:15:00 [employer], Height, 74.091, kg, 04/06/20 9:15:00 [employer], Weight DULoxetine 202-0 Yes See Memoria 30 mg oral 3-04 Instructio l delayed 19:26: ns, TAKE Kevin n release 00 ONE capsule CAPSULE BY MOUTH DAILY, # 30 unknown unit, 5 Refill(s), Pharmacy: [facility] [id number], 162.56, cm, 04/06/20 9:15:00 [employer], Height, 74.091, kg, 04/06/20 9:15:00 [employer], Weight DULoxetine 202-0 Yes See Memoria 30 mg oral 3-04 Instructio l delayed 19:26: ns, TAKE Kevin n release 00 ONE capsule CAPSULE BY MOUTH DAILY, # 30 unknown unit, 5 Refill(s), Pharmacy: [facility] [id number], 162.56, cm, 04/06/20 9:15:00 [employer], Height, 74.091, kg, 04/06/20 9:15:00 [employer], Weight DULoxetine 202-0 Yes See Memoria 30 mg oral 3-04 Instructio l delayed 19:26: ns, TAKE Kevin n release 00 ONE capsule CAPSULE BY MOUTH DAILY, # 30 unknown unit, 5 Refill(s), Pharmacy: [facility] [id number], 162.56, cm, 04/06/20 9:15:00 [employer], Height, 74.091, kg, 04/06/20 9:15:00 [employer], Weight DULoxetine 202-0 Yes See Memoria 30 mg oral 3-04 Instructio l delayed 19:26: ns, TAKE Kevin n release 00 ONE capsule CAPSULE BY MOUTH DAILY, # 30 unknown unit, 5 Refill(s), Pharmacy: [place] [id number], 162.56, cm, 04/06/20 9:15:00 [employer], Height, 74.091, kg, 04/06/20 9:15:00 [employer], Weight DULoxetine 2020-0 Yes See Memoria 30 mg oral 3-04 Instructio l delayed 19:26: ns, TAKE Kevin n release 00 ONE capsule CAPSULE BY MOUTH DAILY, # 30 unknown unit, 5 Refill(s), Pharmacy: [facility] [id number], 162.56, cm, 04/06/20 9:15:00 [employer], Height, 74.091, kg, 04/06/20 9:15:00 [employer], Weight gabapentin 202-0 Yes See Memoria 600 MG Oral 1-28 Instructio l Tablet 15:42: ns, 1/2 [place] [Neurontin] 00 tab PO TID 90 day, # 180 tab, 1 Refill(s), Pharmacy: [place] [address], 162.56, cm, 04/06/20 9:15:00 [employer], Height, 74.091, kg, 04/06/20 9:15:00 [employer], Weight gabapentin 202-0 Yes See Memoria 600 MG Oral 1-28 Instructio l Tablet 15:42: ns, 2 [place] [Neurontin] 00 tab PO TID 90 day, # 180 tab, 1 Refill(s), Pharmacy: [place] [address], 162.56, cm, 04/06/20 9:15:00 [employer], Height, 74.091, kg, 04/06/20 9:15:00 [employer], Weight gabapentin 2021-0 Yes See Memoria 600 MG Oral 1-28 Instructio l Tablet 15:42: ns, 2 [place] [Neurontin] 00 tab PO TID 90 day, # 180 tab, 1 Refill(s), Pharmacy: [place] [address], 162.56, cm, 04/06/20 9:15:00 [employer], Height, 74.091, kg, 04/06/20 9:15:00 [employer], Weight gabapentin 2021-0 Yes See Memoria 600 MG Oral 1-28 Instructio l Tablet 15:42: ns, 2 [place] [Neurontin] 00 tab PO TID 90 day, # 180 tab, 1 Refill(s), Pharmacy: [place] [address], 162.56, cm, 04/06/20 9:15:00 [employer], Height, 74.091, kg, 04/06/20 9:15:00 [employer], Weight gabapentin 2021-0 Yes See Memoria 600 MG Oral 1-28 Instructio l Tablet 15:42: ns, 2 [place] [Neurontin] 00 tab PO TID 90 day, # 180 tab, 1 Refill(s), Pharmacy: [place] [address], 162.56, cm, 04/06/20 9:15:00 [employer], Height, 74.091, kg, 04/06/20 9:15:00 [employer], Weight gabapentin 2021-0 Yes See Memoria 600 MG Oral 1-28 Instructio l Tablet 15:42: ns, 2 [place] [Neurontin] 00 tab PO TID 90 day, # 180 tab, 1 Refill(s), Pharmacy: [facility] 256, 162.56, cm, 04/06/20 9:15:00 [employer], Height, 74.091, kg, 04/06/20 9:15:00 [employer], Weight gabapentin 2021-0 Yes See Memoria 600 MG Oral - Instructio l Tablet 15:42: ns, 03/11 [place] [Neurontin] 00 tab PO TID 90 day, # 180 tab, 1 Refill(s), Pharmacy: [facility] [place], 162.56, cm, 04/06/20 9:15:00 [employer], Height, 74.091, kg, 04/06/20 9:15:00 [employer], Weight gabapentin 2019-03 Yes 600 mg = 1 M emoria 600 MG Oral 1-21 tab, PO, l Tablet 01:47: TID, # 270 [place] [Neurontin] 00 tab, 1 Refill(s), Pharmacy: [facility] [place], 162.56, cm, 01/27/20 11:01:00 [employer], Height, 72.727, kg, 01/27/20 11:01:00 [employer], Weight gabapentin 2019-03 Yes 600 mg = 1 M emoria 600 MG Oral 1-21 tab, PO, l Tablet 01:47: TID, # 270 [place] [Neurontin] 00 tab, 1 Refill(s), Pharmacy: [facility] [place], 162.56, cm, 01/27/20 11:01:00 [employer], Height, 72.727, kg, 01/27/20 11:01:00 [employer], Weight gabapentin 2019-03 Yes 600 mg = 1 M emoria 600 MG Oral 1-21 tab, PO, l Tablet 01:47: TID, # 270 [place] [Neurontin] 00 tab, 1 Refill(s), Pharmacy: [facility] [place], 162.56, cm, 01/27/20 11:01:00 [employer], Height, 72.727, kg, 01/27/20 11:01:00 [employer], Weight gabapentin 2019-03 Yes 600 mg = 1 M emoria 600 MG Oral 1-21 tab, PO, l Tablet 01:47: TID, # 270 [place] [Neurontin] 00 tab, 1 Refill(s), Pharmacy: [facility] [place], 162.56, cm, 01/27/20 11:01:00 [employer], Height, 72.727, kg, 01/27/20 11:01:00 [employer], Weight gabapentin 2019-03 Yes 600 mg = 1 M emoria 600 MG Oral 1-21 tab, PO, l Tablet 01:47: TID, # 270 [place] [Neurontin] 00 tab, 1 Refill(s), Pharmacy: [facility] 256, 162.56, cm, 01/27/20 11:01:00 [employer], Height, 72.727, kg, 01/27/20 11:01:00 [employer], Weight gabapentin 2019-03 Yes 600 mg = 1 M emoria 600 MG Oral 1-21 tab, PO, l Tablet 01:47: TID, # 270 [place] [Neurontin] 00 tab, 1 Refill(s), Pharmacy: [facility] 256, 162.56, cm, 01/27/20 11:01:00 [employer], Height, 72.727, kg, 01/27/20 11:01:00 [employer], Weight gabapentin 2019-03 Yes 600 mg = 1 M emoria 600 MG Oral 1-21 tab, PO, l Tablet 01:47: TID, # 270 [place] [Neurontin] 00 tab, 1 Refill(s), Pharmacy: [facility] 256, 162.56, cm, 01/27/20 11:01:00 [employer], Height, 72.727, kg, 01/27/20 11:01:00 [employer], Weight apixaban 2019-03 Yes 2.5mg Take 2.5 Univ ers (ELIQUIS) 0-12 mg by ity of 2.5 mg 14:20: mouth 2 [place] tablet 35 (two) Medical times Branch daily. losartan 25 2019-03 Yes 25mg Take 25 mg [facility] mg tablet 0-12 by mouth ity of 14:20: daily. [place] [address] Medical Branch rosuvastati 2019-03 Yes 20mg Take 20 mg Univers n 20 mg 0-12 by mouth ity of tablet 14:20: at [place] [address] bedtime. Medical Branch gabapentin 2019-03 Yes 900mg Take 900 Un [place] 300 mg 0-12 mg by ity of capsule 14:20: mouth 3 [place] 35 (three) Medical times Branch daily. apixaban 2019-03 Yes 2.5mg Take 2.5 Univ ers (ELIQUIS) 0-12 mg by ity of 2.5 mg 14:20: mouth 2 [place] tablet 35 (two) Medical times Branch daily. losartan 25 2019-03 Yes 25mg Take 25 mg Univers mg tablet 0-12 by mouth ity of 14:20: daily. [place] [address] Medical Branch rosuvastati 2019-03 Yes 20mg Take 20 mg Univers n 20 mg 0-12 by mouth ity of tablet 14:20: at [place] [address] bedtime. Medical Branch gabapentin 2019-03 Yes 900mg Take 900 Un [place] 300 mg 0-12 mg by ity of capsule 14:20: mouth 3 [place] [address] (three) Medical times Branch daily. apixaban 2019-03 Yes 2.5mg Take 2.5 Univ ers (ELIQUIS) 0-12 mg by ity of 2.5 mg 14:20: mouth 2 [place] tablet 35 (two) Medical times Branch daily. losartan 25 2019-03 Yes 25mg Take 25 mg Univers mg tablet 0-12 by mouth ity of 14:20: daily. [address] Branch rosuvastati 2019-03 Yes 20mg Take 20 mg Univers n 20 mg 0-12 by mouth ity of tablet 14:20: at [place] [address] bedtime. Medical Branch gabapentin 2019-03 Yes 900mg Take 900 Un [place] 300 mg 0-12 mg by ity of capsule 14:20: mouth 3 [place] [address] (three) Medical times Branch daily. apixaban 2019-03 Yes 2.5mg Take 2.5 Univ ers (ELIQUIS) 0-12 mg by ity of 2.5 mg 14:20: mouth 2 [place] tablet 35 (two) Medical times Branch daily. losartan 25 2019-03 Yes 25mg Take 25 mg Univers mg tablet 0-12 by mouth ity of 14:20: daily. [address] Branch rosuvastati 2019-03 Yes 20mg Take 20 mg Univers n 20 mg 0-12 by mouth ity of tablet 14:20: at [place] [address] bedtime. Medical Branch gabapentin 2019-03 Yes 900mg Take 900 Un [place] 300 mg 0-12 mg by ity of capsule 14:20: mouth 3 [place] [address] (three) Medical times Branch daily. apixaban 2019-03 Yes 2.5mg Take 2.5 Univ ers (ELIQUIS) 0-12 mg by ity of 2.5 mg 14:20: mouth 2 [place] tablet 35 (two) Medical times Branch daily. losartan 25 2019-03 Yes 25mg Take 25 mg Univers mg tablet 0-12 by mouth ity of 14:20: daily. [place] [address] Medical Branch rosuvastati 2019-03 Yes 20mg Take 20 mg Univers n 20 mg 0-12 by mouth ity of tablet 14:20: at [place] [address] bedtime. Medical Branch apixaban 2019-03 Yes 2.5mg Take 2.5 Univ ers (ELIQUIS) 0-12 mg by ity of 2.5 mg 14:20: mouth 2 [place] tablet 35 (two) Medical times [place] daily. losartan 25 2019-03 Yes 25mg Take 25 mg Univers mg tablet 0-12 by mouth ity of 14:20: daily. [place] [address] Medical Branch rosuvastati 2019-03 Yes 20mg Take 20 mg Univers n 20 mg 0-12 by mouth ity of tablet 14:20: at [place] [address] bedtime. Medical Branch apixaban 2019-03 Yes 2.5mg Take 2.5 Univ ers (ELIQUIS) 0-12 mg by ity of 2.5 mg 14:20: mouth 2 [place] tablet 35 (two) Medical times [place] daily. losartan 25 2019-03 Yes 25mg Take 25 mg Univers mg tablet 0-12 by mouth ity of 14:20: daily. [address] Branch rosuvastati 2019-03 Yes 20mg Take 20 mg Univers n 20 mg 0-12 by mouth ity of tablet 14:20: at [place] [address] bedtime. Medical Branch apixaban 2019-03 Yes 2.5mg Take 2.5 Univ ers (ELIQUIS) 0-12 mg by ity of 2.5 mg 14:20: mouth 2 [place] tablet 35 (two) Medical times [place] daily. losartan 25 2019-03 Yes 25mg Take 25 mg Univers mg tablet 0-12 by mouth ity of 14:20: daily. [address] Branch rosuvastati 2019-03 Yes 20mg Take 20 mg Univers n 20 mg 0-12 by mouth ity of tablet 14:20: at [place] [address] bedtime. Medical Branch apixaban 2019-03 Yes 2.5mg Take 2.5 Univ ers (ELIQUIS) 0-12 mg by ity of 2.5 mg 14:20: mouth 2 [place] tablet 35 (two) Medical times [place] daily. losartan 25 2019-03 Yes 25mg Take 25 mg Univers mg tablet 0-12 by mouth ity of 14:20: daily. [address] rosuvastati 2019-03 Yes 20mg Take 20 mg Univers n 20 mg 0-12 by mouth ity of tablet 14:20: at [place] [address] bedtime. Medical Branch apixaban 2019-03 Yes 2.5mg Take 2.5 Univ ers (ELIQUIS) 0-12 mg by ity of 2.5 mg 14:20: mouth 2 [place] tablet 35 (two) Medical times Branch daily. losartan 25 2019-03 Yes 25mg Take 25 mg Univers mg tablet 0-12 by mouth ity of 14:20: daily. [place] [address] Medical Branch rosuvastati 2019-03 Yes 20mg Take 20 mg Univers n 20 mg 0-12 by mouth ity of tablet 14:20: at [place] [address] bedtime. Medical Branch apixaban 2019-03 Yes 2.5mg Take 2.5 Univ ers (ELIQUIS) 0-12 mg by ity of 2.5 mg 14:20: mouth 2 [place] tablet 35 (two) Medical times Branch daily. losartan 25 2019-03 Yes 25mg Take 25 mg Univers mg tablet 0-12 by mouth ity of 14:20: daily. [place] [address] Medical Branch rosuvastati 2019-03 Yes 20mg Take 20 mg Univers n 20 mg 0-12 by mouth ity of tablet 14:20: at [place] [address] bedtime. Medical Branch apixaban 2019-03 Yes 2.5mg Take 2.5 Univ ers (ELIQUIS) 0-12 mg by ity of 2.5 mg 14:20: mouth 2 [place] tablet 35 (two) Medical times [place] daily. losartan 25 2019-03 Yes 25mg Take 25 mg Univers mg tablet 0-12 by mouth ity of 14:20: daily. [place] [address] Medical Branch rosuvastati 2019-03 Yes 20mg Take 20 mg Univers n 20 mg 0-12 by mouth ity of tablet 14:20: at [place] [address] bedtime. Medical Branch DULoxetine Yes See Memoria 30 mg oral 7- Instructio l delayed 22:57: ns, TAKE Kevin n release 00 ONE capsule CAPSULE BY MOUTH DAILY, # 30 unknown unit, 6 Refill(s), Pharmacy: [facility] [id number], 165.1, cm, 07/30/19 9:05:00 CDT, Height, 75.909, kg, 07/30/19 9:05:00 CDT, Weight DULoxetine 2020-0 Yes See Memoria 30 mg oral 7-29 Instructio l delayed 22:57: ns, TAKE Kevin n release 00 ONE capsule CAPSULE BY MOUTH DAILY, # 30 unknown unit, 6 Refill(s), Pharmacy: [facility] [id number], 165.1, cm, 07/30/19 9:05:00 CDT, Height, 75.909, kg, 07/30/19 9:05:00 CDT, Weight DULoxetine 2020-0 Yes See Memoria 30 mg oral 7-29 Instructio l delayed 22:57: ns, TAKE Kevin n release 00 ONE capsule CAPSULE BY MOUTH DAILY, # 30 unknown unit, 6 Refill(s), Pharmacy: [facility] [id number], 165.1, cm, 07/30/19 9:05:00 CDT, Height, 75.909, kg, 07/30/19 9:05:00 CDT, Weight DULoxetine 2020-0 Yes See Memoria 30 mg oral 7-29 Instructio l delayed 22:57: ns, TAKE Kevin n release 00 ONE capsule CAPSULE BY MOUTH DAILY, # 30 unknown unit, 6 Refill(s), Pharmacy: [facility] [id number], 165.1, cm, 07/30/19 9:05:00 CDT, Height, 75.909, kg, 07/30/19 9:05:00 CDT, Weight DULoxetine 2020-0 Yes See Memoria 30 mg oral 7-29 Instructio l delayed 22:57: ns, TAKE Kevin n release 00 ONE capsule CAPSULE BY MOUTH DAILY, # 30 unknown unit, 6 Refill(s), Pharmacy: [facility] [id number], 165.1, cm, 07/30/19 9:05:00 CDT, Height, 75.909, kg, 07/30/19 9:05:00 CDT, Weight DULoxetine 2020-0 Yes See Memoria 30 mg oral 7-29 Instructio l delayed 22:57: ns, TAKE Kevin n release 00 ONE capsule CAPSULE BY MOUTH DAILY, # 30 unknown unit, 6 Refill(s), Pharmacy: [facility] [id number], 165.1, cm, 07/30/19 9:05:00 CDT, Height, 75.909, kg, 07/30/19 9:05:00 CDT, Weight DULoxetine 2020-0 Yes See Memoria 30 mg oral 7-29 Instructio l delayed 22:57: ns, TAKE Kevin n release 00 ONE capsule CAPSULE BY MOUTH DAILY, # 30 unknown unit, 6 Refill(s), Pharmacy: [facility] [id number], 165.1, cm, 07/30/19 9:05:00 CDT, Height, 75.909, kg, 07/30/19 9:05:00 CDT, Weight TAMSULOSIN 2020-0 Yes [id number] TAKE ONE Univers 0.4 mg 24 7-29 CAPSULE BY ity of hr capsule 00:00: MOUTH DAILY Medical Branch TAMSULOSIN 2020-0 Yes [id number] TAKE ONE Univers 0.4 mg 24 7-29 CAPSULE BY ity of hr capsule 00:00: MOUTH DAILY Medical Branch TAMSULOSIN 2020-0 Yes [id number] TAKE ONE Univers 0.4 mg 24 7-29 CAPSULE BY ity of hr capsule 00:00: MOUTH DAILY Medical Branch TAMSULOSIN 2020-0 Yes [id number] TAKE ONE Univers 0.4 mg 24 7-29 CAPSULE BY ity of hr capsule 00:00: MOUTH DAILY Medical Branch TAMSULOSIN 2020-0 Yes [id number] TAKE ONE [facility] 0.4 mg 24 7-29 CAPSULE BY ity of hr capsule 00:00: MOUTH DAILY Medical Branch TAMSULOSIN 2020-0 Yes [id number] TAKE ONE [facility] 0.4 mg 24 7-29 CAPSULE BY ity of hr capsule 00:00: MOUTH DAILY Medical Branch TAMSULOSIN 2020-0 Yes [id number] TAKE ONE [facility] 0.4 mg 24 7-29 CAPSULE BY ity of hr capsule 00:00: MOUTH DAILY Medical Branch TAMSULOSIN 2020-0 Yes [id number] TAKE ONE [facility] 0.4 mg 24 7-29 CAPSULE BY ity of hr capsule 00:00: MOUTH DAILY Medical Branch TAMSULOSIN 2020-0 Yes [id number] TAKE ONE [facility] 0.4 mg 24 7-29 CAPSULE BY ity of hr capsule 00:00: MOUTH DAILY Medical Branch TAMSULOSIN 2020-0 Yes [id number] TAKE ONE Univers 0.4 mg 24 7-29 CAPSULE BY ity of hr capsule 00:00: MOUTH 00 DAILY Medical Branch TAMSULOSIN 2020-0 Yes [id number] TAKE ONE Univers 0.4 mg 24 7-29 CAPSULE BY ity of hr capsule 00:00: MOUTH [place] DAILY Medical Branch TAMSULOSIN Yes [id number] TAKE ONE Univers 0.4 mg 24 7-29 CAPSULE BY ity of hr capsule 00:00: MOUTH [place] DAILY [facility] Branch gabapentin 2018-03 Yes See Memoria 600 MG Oral 1-22 Instructio l Tablet 20:41: ns, 1.5 [place] [Neurontin] 45 tab PO TID, # 540 tab, 2 Refill(s), Pharmacy: [place] [address] gabapentin 2018-03 Yes See Memoria 600 MG Oral 1-22 Instructio l Tablet 20:41: ns, 1.5 [place] [Neurontin] 45 tab PO TID, # 540 tab, 2 Refill(s), Pharmacy: [place] [address] gabapentin 2018-03 Yes See Memoria 600 MG Oral 1-22 Instructio l Tablet 20:41: ns, 1.5 [place] [Neurontin] 45 tab PO TID, # 540 tab, 2 Refill(s), Pharmacy: [place] [address] gabapentin 2018-03 Yes See Memoria 600 MG Oral 1-22 Instructio l Tablet 20:41: ns, 1.5 [place] [Neurontin] 45 tab PO TID, # 540 tab, 2 Refill(s), Pharmacy: [place] [address] gabapentin 2018-03 Yes See Memoria 600 MG Oral 1-22 Instructio l Tablet 20:41: ns, 1.5 [place] [Neurontin] 45 tab PO TID, # 540 tab, 2 Refill(s), Pharmacy: [place] [address] gabapentin 2018-03 Yes See Memoria 600 MG Oral 1-22 Instructio l Tablet 20:41: ns, 1.5 [place] [Neurontin] 45 tab PO TID, # 540 tab, 2 Refill(s), Pharmacy: [place] [address] gabapentin 2018-03 Yes See Memoria 600 MG Oral 1-22 Instructio l Tablet 20:41: ns, 1.5 [place] [Neurontin] 45 tab PO TID, # 540 tab, 2 Refill(s), Pharmacy: [place] [address] DUTASTERIDE Yes [id number] TAKE ONE Univers 0.5 mg 7-10 CAPSULE BY ity of capsule 00:00: DAILY Medical Branch DUTASTERIDE 2019-0 Yes [id number] TAKE ONE Univers 0.5 mg 7-10 CAPSULE BY ity of capsule 00:00: DAILY Medical Branch DUTASTERIDE 2018-0 Yes [id number] TAKE ONE Univers 0.5 mg 7-10 CAPSULE BY ity of capsule 00:00: DAILY Medical Branch DUTASTERIDE 2018-0 Yes [id number] TAKE ONE Univers 0.5 mg 7-10 CAPSULE BY ity of capsule 00:00: DAILY Medical Branch DUTASTERIDE 0 Yes [id number] TAKE ONE Univers 0.5 mg 7-10 CAPSULE BY ity of capsule 00:00: DAILY Medical Branch DUTASTERIDE 0 Yes [id number] TAKE ONE Univers 0.5 mg 7-10 CAPSULE BY ity of capsule 00:00: DAILY Medical Branch DUTASTERIDE 0 Yes [id number] TAKE ONE Univers 0.5 mg 7-10 CAPSULE BY ity of capsule 00:00: DAILY Medical Branch DUTASTERIDE 0 Yes [id number] TAKE ONE Univers 0.5 mg 7-10 CAPSULE BY ity of capsule 00:00: DAILY Medical Branch DUTASTERIDE 20190 Yes [id number] TAKE ONE Univers 0.5 mg 7-10 CAPSULE BY ity of capsule 00:00: DAILY Medical Branch DUTASTERIDE 0 Yes [id number] TAKE ONE Univers 0.5 mg 7-10 CAPSULE BY ity of capsule 00:00: DAILY Medical Branch DUTASTERIDE 2019-0 Yes [id number] TAKE ONE Univers 0.5 mg 7-10 CAPSULE BY ity of capsule 00:00: DAILY Medical Branch DUTASTERIDE 0 Yes [id number] TAKE ONE Univers 0.5 mg 7-10 CAPSULE BY ity of capsule 00:00: DAILY Medical Branch gabapentin 0 Yes See Memoria 600 MG Oral 6-28 Instructio l Tablet 13:51: ns, 1.5 [place] [Neurontin] 03 tab PO TID, # 540 tab, 2 Refill(s), Pharmacy: [place] [address] gabapentin Yes See Memoria 600 MG Oral 6-28 Instructio l Tablet 13:51: ns, 1.5 [place] [Neurontin] 03 tab PO TID, # 540 tab, 2 Refill(s), Pharmacy: [place] [address] gabapentin 2018- Yes See Memoria 600 MG Oral 6-28 Instructio l Tablet 13:51: ns, 1.5 [place] [Neurontin] 03 tab PO TID, # 540 tab, 2 Refill(s), Pharmacy: [place] [address] gabapentin Yes See Memoria 600 MG Oral 6-28 Instructio l Tablet 13:51: ns, 1.5 [place] [Neurontin] 03 tab PO TID, # 540 tab, 2 Refill(s), Pharmacy: [place] [address] gabapentin Yes See Memoria 600 MG Oral 6-28 Instructio l Tablet 13:51: ns, 1.5 [place] [Neurontin] 03 tab PO TID, # 540 tab, 2 Refill(s), Pharmacy: [place] [address] gabapentin Yes See Memoria 600 MG Oral 6-28 Instructio l Tablet 13:51: ns, 1.5 [place] [Neurontin] 03 tab PO TID, # 540 tab, 2 Refill(s), Pharmacy: [place] [address] gabapentin 2018- Yes See Memoria 600 MG Oral 6-28 Instructio l Tablet 13:51: ns, 1.5 [place] [Neurontin] 03 tab PO TID, # 540 tab, 2 Refill(s), Pharmacy: [place] [address] losartan 25 2018-0 Yes 25 mg = 1 M emoria mg oral 3-26 tab, PO, l tablet 13:45: Daily, # [place] 00 30 tab, 0 Refill(s) Eliquis 2.5 2019-0 Yes 2.5 mg, Mem oria mg oral 3-26 PO, Q12H, l tablet 13:45: 0 [place] 00 Refill(s) dutasteride 2019-0 Yes 0.5 mg = 1 [facility] 0.5 mg oral 3-26 cap, PO, l capsule 13:45: Daily, # Kevin n 00 30 cap, 0 Refill(s) losartan 25 2018-0 Yes 25 mg = 1 M emoria mg oral 3-26 tab, PO, l tablet 13:45: Daily, # [place] 00 30 tab, 0 Refill(s) Eliquis 2.5 2018-0 Yes 2.5 mg, Mem oria mg oral 3-26 PO, Q12H, l tablet 13:45: 0 [place] 00 Refill(s) dutasteride Yes 0.5 mg = 1 [facility] 0.5 mg oral 3-26 cap, PO, l capsule 13:45: Daily, # Kevin n 00 30 cap, 0 Refill(s) losartan 25 0 Yes 25 mg = 1 M emoria mg oral 3-26 tab, PO, l tablet 13:45: Daily, # [place] 00 30 tab, 0 Refill(s) Eliquis 2.5 Yes 2.5 mg, Mem oria mg oral 3-26 PO, Q12H, l tablet 13:45: 0 [place] 00 Refill(s) dutasteride Yes 0.5 mg = 1 [facility] 0.5 mg oral 3-26 cap, PO, l capsule 13:45: Daily, # Kevin n 00 30 cap, 0 Refill(s) losartan 25 Yes 25 mg = 1 M emoria mg oral 3-26 tab, PO, l tablet 13:45: Daily, # [place] 00 30 tab, 0 Refill(s) Eliquis 2.5 Yes 2.5 mg, Mem oria mg oral [...] release 24hr CYANOCOBALA Yes Take by [facility] MIN, 1-[address] VITAMIN 13:23: Hospita B-12, 24 [...] QD Take 81 mg Meth hanane (ECOTRIN) [address] 81 MG 13:23: daily. [...] sami (VITAMIN D3 24 l ORAL) aspirin 2018-0 Yes 81mg QD Take 81 mg Meth hanane (ECOTRIN) [address] 81 MG 13:23: daily. [...] sami (VITAMIN D3 24 l ORAL) aspirin 2018-0 Yes 81mg QD Take 81 mg Meth [...] 24hr CYANOCOBALA 2019-0 Yes Take by Met cuco MIN, 04-[address] VITAMIN 13:23: Hospita B-12, 24 l (VITAMIN B-12 ORAL) dutasteride 2019-0 Yes .5mg QD Take 0.5 Me thodi (AVODART) 1-[address] 0.5 mg 13:23: mouth [facility]osp[facility] capsule 24 daily. l cholecalcif 2019-0 Yes QD Take by Met cuco mateo, [...] l tablet daily. ipratropium 2019-0 Yes 3mL [id number] Take 3 mL [facility] -albuterol 1-[id number] (DUO-NEB) 00:00: 3D nebulizati Ho [...] 8 per minute). ipratropium 2019-0 Yes 3mL Q.[id number] Take 3 mL [facility] -albuterol 1-[id number] (DUO-NEB) 00:00: 3D nebulizati Ho [...] 8 per minute). ipratropium 2019-0 Yes 3mL Q.[id number] Take 3 mL [facility] -albuterol 1-[id number] (DUO-NEB) 00:00: 3D nebulizati Ho [...] 8 per minute). ipratropium 2019-0 Yes 3mL Q.[id number] Take 3 mL [facility] -albuterol 1-[id number] (DUO-NEB) 00:00: 3D nebulizati Ho [...] 8 per minute). ipratropium 2019-0 Yes 3mL Q.[id number] Take 3 mL [facility] -albuterol 1-[id number] (DUO-NEB) 00:00: 3D nebulizati Ho [...] 8 per minute). ipratropium 2019-0 Yes 3mL [id number] Take 3 mL [facility] -albuterol 1-[id number] ([facility]) 00:00: 3D nebulizati Ho [...] oral 00 Refill(s) delayed release tablet tamsulosin 2018- Yes 0.4 mg = 1 M emoria 0.4 mg oral 3-05 cap, PO, l capsule 18:48: Daily, 0 Kevin n 00 Refill(s) Aspirin 2018- Yes 81 mg = 1 Memor [facility] Enteric 3-05 tab, PO, l Coated 81 18:48: Daily, 0 Herm sly mg oral 00 Refill(s) delayed release tablet tamsulosin 2018 Yes 0.4 mg = 1 M emoria [...] Comments Source height 2022-01-24 11:00:00 64 [in_i] [facility] weight 2022-01-24 11:00:00 160 [lb_av] [facility] temperature 2022-01-24 11:00:00 97.7 [degF] [facility] bmi 2022-01-24 11:00:00 27.46 kg/m2 [facility] oximetry 2022-01-24 11:00:00 96 % [facility] respiratory rate 2022-01-24 11:00:00 18 /min [facility] blood pressure 2022-01-24 11:00:00 110 mm[Hg] [facility] systolic [facility] blood pressure 2022-01-24 11:00:00 60 mm[Hg] [facility] - diastolic [facility] Systolic blood 2021-10-25 00:11:00 117 mm[Hg] [facility] pressure [facility] Diastolic blood 2021-10-25 00:11:00 86 mm[Hg] Unive rsity of pressure [facility] Heart rate 2021-10-25 00:11:00 150 /min [facility] Body temperature 2021-10-25 00:11:00 37.22 [place] [facility] Respiratory rate 2021-10-25 00:11:00 16 /min [facility] Body weight 2021-10-25 00:11:00 77.111 kg [facility] BMI 2021-10-25 00:11:00 28.29 kg/m2 [facility] [place] Oxygen saturation in 2021-10-25 00:11:00 94 /min University of Arterial blood by [facility] Pulse oximetry Branch Systolic blood 2021-05-14 19:48:00 124 mm[Hg] Univer sity of pressure [facility] Diastolic blood 2021-05-14 19:48:00 80 mm[Hg] Unive rsity of pressure [facility] Heart rate 2021-05-14 19:48:00 77 /min [facility] [place] [facility] [place] Body temperature 2021-05-14 19:48:00 36.56 [place] Univ ersity [facility] Respiratory rate 2021-05-14 19:48:00 20 /min Univ ersity of [facility] Oxygen saturation in 2021-05-14 19:48:00 92 /min University of Arterial blood by [facility] Pulse oximetry Branch Body height 2021-05-14 17:35:00 167.6 cm [facility] [place] [facility] [place] Body weight 2021-05-14 17:35:00 76.204 kg [facility] BMI 2021-05-14 17:35:00 27.12 kg/m2 Universi ty [facility] Systolic blood 2020-12-13 18:20:00 114 mm[Hg] Univer sity of pressure [facility] Diastolic blood 2020-12-13 18:20:00 69 mm[Hg] Unive rsity of pressure [facility] Body height 2020-12-13 18:20:00 165.1 [facility] 2020-12-13 18:20:00 73.029 kg [facility] Branch BMI 2020-12-13 18:20:00 26.79 kg/m2 [facility] Systolic (mm Hg) 2022-11-05 13:28:00 Turner [facility] [place] Diastolic (mm Hg) 2022-11-05 13:28:00 Mem orial [place] Heart Rate 2022-11-05 13:28:00 [facility] [place] Height 2022-11-05 13:28:00 5 [ft_i] [facility] [place] Weight 2022-11-05 13:28:00 [facility] BMI Calculated 2022-11-05 13:28:00 [facility] [place] Systolic (mm Hg) 2022-09-18 18:16:00 Turner [facility] [place] Diastolic (mm Hg) 2022-09-18 18:16:00 Mem [facility] [place] Heart Rate 2022-09-18 18:16:00 [facility] [place] Height 2022-09-18 18:16:00 5 [ft_i] [facility] [place] Weight 2022-09-18 18:16:00 [facility] BMI Calculated 2022-09-18 18:16:00 Mem[facility] [place] Systolic (mm Hg) 2022-05-28 18:51:00 Turner [facility] [place] Diastolic (mm Hg) 2022-05-28 18:51:00 Mem [facility] [place] Heart Rate 2022-05-28 18:51:00 [facility] [place] Height 2022-05-28 18:51:00 5 [ft_i] [facility] Weight 2022-05-28 18:51:00 [facility] [place] BMI Calculated 2022-05-28 18:51:00 Mem[facility] [place] Systolic (mm Hg) 2022-01-23 17:14:00 [facility] [place] Diastolic (mm Hg) 2022-01-23 17:14:00 Mem [facility] [place] Heart Rate 2022-01-23 17:14:00 [facility] [place] Height 2022-01-23 17:14:00 5 [ft_i] [facility] [place] Weight 2022-01-23 17:14:00 [facility] [place] BMI Calculated 2022-01-23 17:14:00 [facility] [place] Systolic (mm Hg) 2021-10-23 16:05:00 [facility] [place] Diastolic (mm Hg) 2021-10-23 16:05:00 Mem [facility] [place] Heart Rate 2021-10-23 16:05:00 [facility] [place] Respitory Rate 2021-10-23 16:05:00 [facility] [place] Systolic (mm Hg) 2021-09-19 14:03:00 [facility] [place] Diastolic (mm Hg) 2021-09-19 14:03:00 Mem [facility] [place] Heart Rate 2021-09-19 14:03:00 [facility] [place] Respitory Rate 2021-09-19 14:03:00 [facility] [place] Systolic (mm Hg) 2021-04-18 20:08:00 [facility] [place] Diastolic (mm Hg) 2021-04-18 20:08:00 Mem [facility] [place] Heart Rate 2021-04-18 20:08:00 [facility] [place] Respitory Rate 2021-04-18 20:08:00 Mem[facility] [place] Height 2021-04-18 20:08:00 162.56 cm [facility] [place] Weight 2021-04-18 20:08:00 [facility] [place] BMI Calculated 2021-04-18 20:08:00 Mem[facility] [place] Systolic (mm Hg) 2021-03-06 20:28:00 [facility] [place] Diastolic (mm Hg) 2021-03-06 20:28:00 Mem [facility] [place] Heart Rate 2021-03-06 20:28:00 [facility] [place] Respitory Rate 2021-03-06 20:28:00 [facility] [place] Height 2021-03-06 20:28:00 165.1 cm [facility] [place] Weight 2021-03-06 20:28:00 [facility] BMI Calculated 2021-03-06 20:28:00 [facility] [place] Systolic (mm Hg) 2020-11-09 14:54:00 [facility] [place] Diastolic (mm Hg) 2020-11-09 14:54:00 Mem orial [place] Heart Rate 2020-11-09 14:54:00 [facility] [place] Respitory Rate 2020-11-09 14:54:00 [facility] [place] Systolic (mm Hg) 2020-04-06 15:15:00 [facility] [place] Diastolic (mm Hg) 2020-04-06 15:15:00 Mem o[facility] [place] Heart Rate 2020-04-06 15:15:00 [facility] [place] Respitory Rate 2020-04-06 15:15:00 [facility] [place] Height 2020-04-06 15:15:00 162.56 cm [facility] [place] Weight 2020-04-06 15:15:00 [facility] [place] BMI Calculated 2020-04-06 15:15:00 Mem[facility] [place] Systolic (mm Hg) 2020-02-25 20:24:00 Turner [facility] [place] Diastolic (mm Hg) 2020-02-25 20:24:00 Mem orial [place] Heart Rate 2020-02-25 20:24:00 [facility] [place] Respitory Rate 2020-02-25 20:24:00 Mem[facility] [place] Height 2020-02-25 20:24:00 165.1 cm [facility] [place] Weight 2020-02-25 20:24:00 [facility] BMI Calculated 2020-02-25 20:24:00 [facility] [place] Systolic (mm Hg) 2020-01-27 16:46:00 [place] [facility] [place] Diastolic (mm Hg) 2020-01-27 16:46:00 Mem o[facility] [place] Heart Rate 2020-01-27 16:46:00 [facility] [place] Respitory Rate 2020-01-27 16:46:00 Mem[facility] [place] Height 2020-01-27 16:46:00 162.56 cm [facility] [place] Weight 2020-01-27 16:46:00 [facility] [place] BMI Calculated 2020-01-27 16:46:00 [facility] [place] Temperature Oral (F) 2019-07-30 14:05:00 98.6 F [facility] [place] Systolic (mm Hg) 2019-07-30 14:05:00 [facility] [place] Diastolic (mm Hg) 2019-07-30 14:05:00 Mem orial [place] Heart Rate 2019-07-30 14:05:00 [facility] [place] Respitory Rate 2019-07-30 14:05:00 [facility] [place] Height 2019-07-30 14:05:00 165.1 cm [facility] [place] Weight 2019-07-30 14:05:00 [facility] [place] BMI Calculated 2019-07-30 14:05:00 Mem[facility] [place] Systolic (mm Hg) 2019-05-07 16:32:00 [place] [facility] [place] Diastolic (mm Hg) 2019-05-07 16:32:00 Mem [facility] [place] Heart Rate 2019-05-07 16:32:00 [facility] [place] Respitory Rate 2019-05-07 16:32:00 Mem[facility] [place] Height 2019-05-07 16:32:00 165.1 cm [facility] [place] Weight 2019-05-07 16:32:00 [facility] [place] BMI Calculated 2019-05-07 16:32:00 [facility] [place] Systolic (mm Hg) 2019-01-29 20:06:00 [facility] [place] Diastolic (mm Hg) 2019-01-29 20:06:00 Mem [facility] [place] Heart Rate 2019-01-29 20:06:00 [facility] [place] Respitory Rate 2019-01-29 20:06:00 Mem[facility] [place] Height 2019-01-29 20:06:00 165.1 cm [facility] [place] Weight 2019-01-29 20:06:00 [facility] [place] BMI Calculated 2019-01-29 20:06:00 [facility] [place] Weight 2018-07-30 14:21:00 [facility] [place] BMI Calculated 2018-07-30 14:21:00 [facility] [place] Heart Rate 2018-07-30 14:21:00 [facility] [place] Height 2018-07-30 14:21:00 167.64 cm [facility] [place] Systolic (mm Hg) 2018-07-30 14:21:00 [facility] [place] Diastolic (mm Hg) 2018-07-30 14:21:00 Mem [facility] [place] Procedures Procedure Date / Time Performing Clinician Source Performed EXTERNAL PROVIDER 2022-08-06 05:01:00 Doctor Unassigned, No [facility] RECORDS Name Medical Branch EXTERNAL PROVIDER 2022-07-25 05:01:00 Doctor Unassigned, No [facility] RECORDS Name Medical Branch RADIOLOGY DOCUMENTATION 2022-07-16 05:01:00 Doctor Unassigned, N o [facility] Name Medical Branch XR LUMBAR SPINE 2 VW 2021-05-14 19:01:00 Alma Mccarthy [facility] XR KNEE <3 VW RIGHT 2021-05-14 19:01:00 Alma Mccarthy [facility] XR SHOULDER 2+ VW RIGHT 2021-05-14 19:01:00 Alma Mccarthy [facility] CT HEAD WO CONTRAST 2021-05-14 18:42:14 Alma Mccarthy [facility] CONSENT/REFUSAL FOR 2021-05-14 17:22:17 [facility] Name [facility] NOTICE OF PRIVACY 2021-05-14 17:21:58 Doctor Unassigned, No [facility] PRACTICES Name [facility] Plan of Care Planned Activity Planned Date Details Comments Source Future Scheduled 2022-11-11 COVID-19 VACCINE (#1) [facility] [place] [facility] Hospital Test 21:54:51 [code = COVID-19 VACCINE (#1)] Future Scheduled 2022-11-11 SHINGLES VACCINES (1 Met [facility] Test 21:54:51 of 2) [code = SHINGLES VACCINES (1 of 2)] Future Scheduled 2022-11-11 65+ PNEUMOCOCCAL [facility] [place] Hospital Test 21:54:51 VACCINE (1 - PCV) [code = 65+ PNEUMOCOCCAL VACCINE (1 - PCV)] Future Scheduled 2022-11-11 INFLUENZA VACCINE (#1) [facility] Hospital Test 21:54:51 [code = INFLUENZA VACCINE (#1)] Future Scheduled 2022-08-23 COVID-19 VACCINE (#1) [facility] [place] [facility] Hospital Test 16:37:21 [code = COVID-19 VACCINE (#1)] Future Scheduled 2022-08-23 SHINGLES VACCINES (1 Met [facility] Test 16:37:21 of 2) [code = SHINGLES VACCINES (1 of 2)] Future Scheduled 2022-08-23 65+ [facility] 16:37:21 VACCINE (1 - PCV) [code = 65+ PNEUMOCOCCAL VACCINE (1 - PCV)] Future Scheduled 2022-08-23 INFLUENZA VACCINE [facility] Hospital Test 16:37:21 [code = INFLUENZA VACCINE] Future Scheduled 2022-07-24 COVID-19 VACCINE (#1) [facility] [place] [facility] Hospital Test 11:11:50 [code = COVID-19 VACCINE (#1)] Future Scheduled 2022-07-24 SHINGLES VACCINES ([address] [facility] Hospital Test 11:11:50 of 2) [code = SHINGLES VACCINES (1 of 2)] Future Scheduled 2022-07-24 65+ [facility] 11:11:50 VACCINE (1 - PCV) [code = 65+ PNEUMOCOCCAL VACCINE (1 - PCV)] Future Scheduled 2022-07-24 INFLUENZA VACCINE Method [facility] Hospital Test 11:11:50 [code = INFLUENZA VACCINE] Future Scheduled 2022-06-08 COVID-19 VACCINE (#1) [facility] [place] [facility] Hospital Test 01:05:07 [code = COVID-19 VACCINE (#1)] Future Scheduled 2022-06-08 SHINGLES VACCINES ([address] [facility] Hospital Test 01:05:07 of 2) [code = SHINGLES VACCINES (1 of 2)] Future Scheduled 2022-06-08 65+ [facility] 01:05:07 VACCINE (1 - PCV) [code = 65+ PNEUMOCOCCAL VACCINE (1 - PCV)] Future Scheduled 2022-06-08 INFLUENZA VACCINE Method [facility] Hospital Test 01:05:07 [code = INFLUENZA VACCINE] Future Scheduled 2022-01-12 HEPATITIS B VACCINES Met [facility] Test 05:39:19 (1 of 3 - 3-dose series) [code = HEPATITIS B VACCINES (1 of 3 - 3-dose series)] Future Scheduled 2022-01-12 COVID-19 VACCINE (#1) [facility] [place] [facility] Hospital Test 05:39:19 [code = COVID-19 VACCINE (#1)] Future Scheduled 2022-01-12 SHINGLES VACCINES ([address] [facility] Hospital Test 05:39:19 of 2) [code = SHINGLES VACCINES (1 of 2)] Future Scheduled 2022-01-12 65+ [facility]UMOCOCCAL [facility] Test 05:39:19 VACCINE (1 - PCV) [code = 65+ PNEUMOCOCCAL VACCINE (1 - PCV)] Future Scheduled 2022-01-12 INFLUENZA VACCINE Method [facility] Hospital Test 05:39:19 [code = INFLUENZA VACCINE] Future Scheduled 2022-01-12 HEPATITIS B VACCINES Met [facility] Hospital Test 05:39:19 (1 of 3 - 3-dose series) [code = HEPATITIS B VACCINES (1 of 3 - 3-dose series)] Future Scheduled 2022-01-12 COVID-19 VACCINE (#1) Me [facility] Hospital Test 05:39:19 [code = COVID-19 VACCINE (#1)] Future Scheduled 2022-01-12 SHINGLES VACCINES ([address] [facility] Hospital Test 05:39:19 of 2) [code = SHINGLES VACCINES (1 of 2)] Future Scheduled 2022-01-12 65+ PNEUMOCOCCAL Methodi [facility] Test 05:39:19 VACCINE (1 - PCV) [code = 65+ PNEUMOCOCCAL VACCINE (1 - PCV)] Future Scheduled 2022-01-12 INFLUENZA VACCINE Method [facility] Hospital Test 05:39:19 [code = INFLUENZA VACCINE] Encounters Start End Encounter Admission Attending Care Care Encounter Source Date/Time Date/Time Type Type Clinicians Facility Department ID 2022-01-24 Outpatient Petra STROC [facility] [id number] Common 11:04:04 [address] Guadal[id number] [place] [address] 2022-12-31 2022-12-31 Outpatient JUSTIN ANDERSON [id number] Memoria 09:30:00 09:30:00 34 john [place] 2022-11-05 2022-11-06 Outpatient JUSTIN FERNÁNDEZ [id number] Memoria 14:15:00 04:59:59 Neurology 33 john [place] 2022-11-05 2022-11-05 Outpatient ALESSANDRA BoucherNYSCHBENEDICTO MISCHER [id number] 09:15:00 23:59:59 Tariq 33 [place] 2022-11-05 2022-11-05 Outpatient JUSTIN ANDERSON [id number] Memoria 09:15:00 09:15:00 33 john [place] 2022-11-05 2022-11-05 Outpatient JUSTIN ANDERSON [id number] Memoria 09:15:00 09:15:00 33 john [place] 2022-09-18 2022-09-19 Outpatient MHIE MNA [id number] Memoria 18:30:00 04:59:59 Neurology 32 john [place] 2022-09-18 2022-09-19 Outpatient MHIE MNA [id number] Memoria 18:30:00 04:59:59 Neurology 32 l Pop [place] 2022-09-18 2022-09-18 [facility] [id number] 13:30:00 23:59:59 Tariq 32 [place] 2022-09-18 2022-09-18 Outpatient MHIE MHIE [id number] [facility] 13:30:00 13:30:00 32 [place] 2022-08-06 2022-08-06 Orders Doctor AVELINA [id number] [id number] Univers 00:00:00 00:00:00 Only Unassigned, JOSE ALBERTO [id number] [facility] [place] [facility] [id number] John as [phone] [address] 2022-07-25 2022-07-25 Orders Doctor AVELINA [id number] [id number] Univers 00:00:00 00:00:00 Only Unassigned, JOSE ALBERTO [id number] [facility] [place] [facility] [id number] John as [phone] [address] 2022-07-24 2022-07-24 [facility] 1.2.840.114 [id number] Univers 00:00:00 00:00:00 [facility] [id number] it y of [place] [id number] John as LEOLA?BLEA [phone] [address] MEDICAL OFFICE BUILDING 2022-07-16 2022-07-16 Orders Doctor AVELINA Alarcon.2.840.114 [id number] Univers 00:00:00 00:00:00 Only Unassigned, JOSE ALBERTO [id number] [facility] [place] [facility] [id number] John as [phone] [address] 2022-07-16 2022-07-16 Telephone [facility] 1.2.840.114 [id number] Univers 00:00:00 00:00:00 [facility] [id number] it y of [place] [id number] John as LEOLA?BLEA [phone] [address] 2022-07-15 2022-07-15 Telephone [facility] 1.2.840.114 [id number] Univers 00:00:00 00:00:00 Maria Guadalupe [facility] [id number] it y of [place] [id number] John as LEOLA?BLEA [phone] [address] 2022-05-28 2022-05-29 Outpatient MHIE MNA [id number] Memoria 19:00:00 04:59:59 Neurology 31 l [place] 2022-05-28 2022-05-29 Outpatient MHIE MNA [id number] Memoria 19:00:00 04:59:59 Neurology 31 l Pop [place] 2022-05-28 2022-05-28 Outpatient FAZAL BoucherSCHER MHMISCHER [id number] 14:00:00 23:59:59 Tariq 31 [place] 2022-05-28 2022-05-28 Outpatient MHIE MHIE [id number] Memoria 14:00:00 14:00:00 31 l [place] 2022-05-23 2022-05-23 Ambulatory MHIE MNA [id number] Memoria 14:30:00 14:30:00 Pre-Reg Neurology 30 l Pop [place] 2022-05-23 2022-05-23 Ambulatory MHIE MNA [id number] Memoria 14:30:00 14:30:00 Pre-Reg Neurology 30 l [place] 2022-05-23 2022-05-23 Outpatient MHIE MHIE [id number] Memoria 09:30:00 09:30:00 30 l [place] 2022-05-23 2022-05-23 Outpatient ALESSANDRA BoucherMISCHER MHMISCHER [id number] 09:30:00 09:30:00 Tariq 30 [place] 2022-01-23 2022-01-24 Outpatient MHIE MNA [id number] Memoria 17:15:00 05:59:59 Neurology 29 l Pop [place] 2022-01-23 2022-01-24 Outpatient MHIE MNA [id number] Memoria 17:15:00 05:59:59 Neurology 29 l [place] 2022-01-24 2022-01-24 [facility] [id number] Co mmon 00:00:00 00:00:00 VISIT EST Spir it PT LEVEL 3 - [facility] 2022-01-23 2022-01-23 Outpatient [id number] 11:15:00 23:59:59 Tariq 29 [place] 2022-01-23 2022-01-23 Outpatient MHIE MHIE [id number] Memoria 11:15:00 11:15:00 29 l [place] 2021-10-24 2021-10-24 Outpatient Adán DUBOSE [facility] [id number] Univers 20:00:00 20:00:00 [facility] 2021-10-24 2021-10-24 Nurse Nurse, [facility] 1.2.840.114 [id number] Univers 19:15:00 19:35:00 Visit Allegra Dubose [id number] [facility] [id number] John as LEOLA?BLEA [phone] [address] MEDICAL OFFICE BUILDING 2021-10-24 2021-10-24 Outpatient R JENNIFER [facility] [id number] Univers 19:15:00 19:15:00 ALLEGRA [facility] 2021-10-23 2021-10-24 Outpatient nullFlavo MNA [id number] Memoria 16:00:00 04:59:59 r Neurology 28 l Pop [place] 2021-10-23 2021-10-24 Outpatient nullFlavo MNA [id number] Memoria 16:00:00 04:59:59 r Neurology 28 l Pop [place] 2021-10-23 2021-10-23 Outpatient ALESSANDRA BoucherMIJAMEL [facility] [id number] 11:00:00 23:59:59 Tariq 28 [place] 2021-10-23 2021-10-23 Outpatient MHIE MHIE [id number] Memoria 11:00:00 11:00:00 28 john [place] 2021-10-16 2021-10-18 Outside nullFlavo MNA [id number] Memoria 13:21:22 04:59:59 Medical r Neurology 29 l Records Pop [place] 2021-10-16 2021-10-18 Outside nullFlavo MNA [id number] Memoria 13:21:22 04:59:59 Medical r Neurology 29 l Records Pop [place] 2021-10-16 2021-10-17 [id number] 08:21:22 23:59:59 29 2021-10-05 2021-10-05 Ambulatory nullFlavo MNA [id number] Memoria 14:00:00 14:00:00 Pre-Reg r Neurology 27 l Pop [place] 2021-10-05 2021-10-05 Ambulatory nullFlavo MNA [id number] Memoria 14:00:00 14:00:00 Pre-Reg r Neurology 27 l Pop [place] 2021-10-05 2021-10-05 Outpatient NOHELIA Boucher [facility] [id number] 09:00:00 09:00:00 Tariq 27 [place] 2021-10-03 2021-10-03 Outpatient MHIE ALESSANDRAIE [id number] Memoria 09:00:00 09:00:00 27 john [place] 2021-09-19 2021-09-20 Outpatient nullFlavo MNA [id number] Memoria 14:00:00 04:59:59 r Neurology 26 l Pop [place] 2021-09-19 2021-09-20 Outpatient nullFlavo MNA [id number] Memoria 14:00:00 04:59:59 r Neurology 26 l Pop [place] 2021-09-19 2021-09-19 Outpatient NOHELIA Boucher [facility] [id number] 09:00:00 23:59:59 Tariq 26 [place] 2021-09-19 2021-09-19 Outpatient MHIE MHIE [id number] Memoria 09:00:00 09:00:00 26 l [place] 2021-09-05 2021-09-07 Outside nullFlavo MNA [id number] Memoria 16:58:30 04:59:59 Medical r Neurology 28 l Records Pop [place] 2021-09-05 2021-09-07 Outside nullFlavo MNA [id number] Memoria 16:58:30 04:59:59 Medical r Neurology 28 l Records Pop [place] 2021-09-05 2021-09-06 Outpatient MHMISCHER MHMISCHER [id number] 11:58:30 23:59:59 28 2021-08-09 2021-08-11 Outside nullFlavo MNA [id number] Memoria 15:30:38 04:59:59 Medical r Neurology 27 l Records Pop [place] 2021-08-09 2021-08-11 Outside nullFlavo MNA [id number] Memoria 15:30:38 04:59:59 Medical r Neurology 27 l Records Pop [place] 2021-08-09 2021-08-10 Outpatient MHNYSCHER MHMISCHER [id number] 10:30:38 23:59:59 27 2021-07-27 2021-07-27 Ambulatory nullFlavo MNA [id number] Memoria 15:15:00 15:15:00 Pre-Reg r Neurology 24 l Pop [place] 2021-07-27 2021-07-27 Ambulatory nullFlavo MNA [id number] Memoria 15:15:00 15:15:00 Pre-Reg r Neurology 24 l Pop [place] 2021-07-27 2021-07-27 Outpatient MHIE MHIE [id number] Memoria 10:15:00 10:15:00 24 j[place] 2021-07-27 2021-07-27 Outpatient Citlaly [facility] [id number] 10:15:00 10:15:00 Tariq 24 [place] 2021-07-02 2021-07-02 Outpatient MHIE MHIE [id number] Memoria 14:40:00 14:40:00 25 john [place] 2021-07-02 2021-07-02 Outpatient MHIE MHIE [id number] Memoria 14:40:00 14:40:00 25 l [place] 2021-06-28 2021-06-30 Outside nullFlavo MNA [id number] Memoria 13:29:04 04:59:59 Medical r Neurology 26 l Records Pop [place] 2021-06-28 2021-06-30 Outside nullFlavo MNA [id number] Memoria 13:29:04 04:59:59 Medical r Neurology 26 l Records Pop [place] 2021-06-28 2021-06-29 Outpatient MHMISCHER MHMISCHER [id number] 08:29:04 23:59:59 26 2021-05-30 2021-06-01 Outside nullFlavo MNA [id number] Memoria 18:23:59 04:59:59 Medical r Neurology 25 l Records Pop [place] 2021-05-30 2021-06-01 Outside nullFlavo MNA [id number] Memoria 18:23:59 04:59:59 Medical r Neurology 25 l Records Pop [place] 2021-05-30 2021-05-31 Outpatient MHMISCHER MHMISCHER [id number] 13:23:59 23:59:59 25 2021-05-24 2021-05-24 Ambulatory nullFlavo MNA [id number] Memoria 18:45:00 18:45:00 Pre-Reg r Neurology 23 l Pop [place] 2021-05-24 2021-05-24 Ambulatory nullFlavo MNA [id number] Memoria 18:45:00 18:45:00 Pre-Reg r Neurology 23 l Pop [place] 2021-05-24 2021-05-24 Outpatient MHIE MHIE [id number] Memoria 13:45:00 13:45:00 23 l [place] 2021-05-24 2021-05-24 Outpatient FAZAL BoucherSCHBENEDICTO MISCHER [id number] 13:45:00 13:45:00 Tariq Sauceda 2021-05-23 2021-05-23 Outpatient [facility] [id number] [facility] 11:00:00 11:00:00 MARIA GUADALUPE plascenciathaddeus [facility] 2021-05-14 2021-05-14 [facility] [id number] Univers 11:36:00 14:58:00 Alma CHOU 350.1.13.10 i ty beckie DURÁNSAN [facility] [id number] [place] [phone] [facility] 084 [place] 2021-05-14 2021-05-14 Outpatient [facility] [id number] Univers 11:15:00 11:15:00 SHANTELL [facility] 2021-05-14 2021-05-14 Urgent Provider, Soy [facility] 1.2.840.114 [id number] Univers 10:40:00 11:00:00 Luis [facility] [id number] [facility] [id number] John as LEOLA?BLEA [phone] [address] MEDICAL OFFICE BUILDING 2021-05-14 2021-05-14 Outpatient Adán [facility] E[facility] [id number] Univers 10:40:00 10:40:00 SHANTELL [facility] 2021-05-14 2021-05-14 Letter Doctor AVELINA 1.2.840.114 [id number] Univers 00:00:00 00:00:00 (Out) Unassigned, JOSE ALBERTO 350.1.13.10 [facility] [place] [facility] [id number] John as [phone] [facility] 044 [place] 2021-05-14 2021-05-14 Orders Doctor AVELINA 1.2.840.114 [id number] Univers 00:00:00 00:00:00 Only Unassigned, JOSE ALBERTO 350.1.13.10 [facility] [place] [facility] [id number] John as [phone] [facility] 009 [place] 2021-04-18 2021-04-19 Outpatient nullFlavo MNA [id number] Memoria 20:00:00 05:59:59 r Neurology 22 l [place] 2021-04-18 2021-04-19 Outpatient nullFlavo MNA [id number] Memoria 20:00:00 05:59:59 r Neurology 22 l Pop [place] 2021-04-18 2021-04-18 [id number] 14:00:00 23:59:59 Tariq 22 [place] 2021-04-18 2021-04-18 Outpatient MHIE IE [id number] Memoria 14:00:00 14:00:00 22 john [place] 2021-03-06 2021-03-07 Outpatient nullFlavo MNA [id number] Memoria 20:15:00 05:59:59 r Neurology 21 l Pop [place] 2021-03-06 2021-03-07 Outpatient nullFlavo MNA [id number] Memoria 20:15:00 05:59:59 r Neurology 21 l Pop [place] 2021-03-06 2021-03-06 [facility] [id number] 14:15:00 23:59:59 Tariq 21 [place] 2021-03-06 2021-03-06 Outpatient MHIE IE [id number] Memoria 14:15:00 14:15:00 21 john [place] 2021-02-08 2021-02-08 Ambulatory nullFlavo MNA [id number] Memoria 16:15:00 16:15:00 Pre-Reg r Neurology 20 l Pop [place] 2021-02-08 2021-02-08 Ambulatory nullFlavo MNA [id number] Memoria 16:15:00 16:15:00 Pre-Reg r Neurology 20 l Pop [place] 2021-02-08 2021-02-08 Outpatient MHIE IE [id number] Memoria 10:15:00 10:15:00 20 john [place] 2021-02-08 2021-02-08 Outpatient [facility] [id number] 10:15:00 10:15:00 Tariq 20 Sohail 2020-12-13 2020-12-13 Office [facility] 1.2.195.000 [id number] Univers 13:45:00 14:28:50 Visit [facility] 350.1.13.10 [facility] 4.2.7.2.686 John as LEOLA?BLEA [phone] [facility] [address] MEDICAL OFFICE BUILDING 2020-12-13 2020-12-13 Outpatient R OTIS [facility] [id number] Univers 13:45:00 14:28:50 SARAH thaddeus [facility] 2020-12-13 2020-12-13 Outpatient R OTIS [facility] [id number] Univers 13:45:00 13:45:00 [facility] 2020-11-09 2020-11-10 Outpatient nullFlavo MNA [id number] Memoria 15:00:00 04:59:59 r Neurology 19 l [place] 2020-11-09 2020-11-10 Outpatient nullFlavo MNA [id number] Memoria 15:00:00 04:59:59 r Neurology 19 l [place] 2020-11-09 2020-11-09 Outpatient FAZAL BoucherSCHER MHMISCHER [id number] 10:00:00 23:59:59 Tariq Sauceda 2020-11-09 2020-11-09 Outpatient MHIE MHIE [id number] Memoria 10:00:00 10:00:00 19 l [place] 2020-10-26 2020-10-28 Outside nullFlavo MNA [id number] Memoria 19:39:10 04:59:59 Medical r Neurology 24 l Records [place] 2020-10-26 2020-10-28 Outside nullFlavo MNA [id number] Memoria 19:39:10 04:59:59 Medical r Neurology 24 l Records [place] 2020-10-26 2020-10-27 Outpatient MHMISCHER MHMISCHER [id number] 14:39:10 23:59:59 24 2020-10-27 2020-10-27 Orders Doctor QUAN 1.2.840.114 [id number] Univers 00:00:00 00:00:00 Only Unassigned, JOSE ALBERTO 350.1.13.10 ity of [place] [facility] 4.2.7.2.686 John as [phone] [address] 2020-10-17 2020-10-19 Outside nullFlavo MNA [id number] Memoria 14:33:42 04:59:59 Medical r Neurology 23 l Records Pop [place] 2020-10-17 2020-10-19 Outside nullFlavo MNA [id number] Memoria 14:33:42 04:59:59 Medical r Neurology 23 l Records Pop [place] 2020-10-17 2020-10-18 Outpatient MHMISCHER MHMISCHER [id number] 09:33:42 23:59:59 23 2020-10-03 2020-10-05 Outside nullFlavo MNA [id number] Memoria 14:05:31 04:59:59 Medical r Neurology 22 l Records [place] 2020-10-03 2020-10-05 Outside nullFlavo MNA [id number] Memoria 14:05:31 04:59:59 Medical r Neurology 22 l Records [place] 2020-10-03 2020-10-04 Outpatient MHMISCHER MHMISCHER [id number] 09:05:31 23:59:59 22 2020-09-12 2020-09-14 Outside nullFlavo MNA [id number] Memoria 13:15:26 04:59:59 Medical r Neurology 21 l Records [place] 2020-09-12 2020-09-14 Outside nullFlavo MNA [id number] Memoria 13:15:26 04:59:59 Medical r Neurology 21 l Records [place] 2020-09-12 2020-09-13 Outpatient MHMISCHER MHMISCHER [id number] 08:15:26 23:59:59 2020-09-01 2020-09-03 Outside nullFlavo MNA [id number] Memoria 21:41:20 04:59:59 Medical r Neurology 20 l Records [place] 2020-09-01 2020-09-03 Outside nullFlavo MNA [id number] Memoria 21:41:20 04:59:59 Medical r Neurology 20 l Records [place] 2020-09-01 2020-09-02 Outpatient MHMISCHER MHMISCHER [id number] 16:41:20 23:59:59 2020-08-12 2020-08-14 Outside nullFlavo MNA [id number] Memoria 23:48:44 04:59:59 Medical r Neurology 19 l Records [place] 2020-08-12 2020-08-14 Outside nullFlavo MNA [id number] Memoria 23:48:44 04:59:59 Medical r Neurology 19 l Records [place] 2020-08-12 2020-08-13 [id number] 18:48:44 23:59:59 19 2020-08-03 2020-08-03 [facility] 1.2.840.114 [id number] Univers 10:22:04 10:59:[address] [facility] 350.1.13.10 it y of Surgical 4.2.7.2.686 John as Specialti [id number] Ks dical es 198 [facility] 2020-08-03 2020-08-03 Outpatient [facility] [id number] Univers 10:00:00 10:00:00 [facility] 2020-07-27 2020-07-27 Office [facility] 1.2.840.114 [id number] Univers 10:23:38 10:56:[address] [facility] 350.1.13.10 it y of Surgical 4.2.7.2.686 John as Specialti [phone] Ks dical es 198 [facility] 2020-07-27 2020-07-27 Outpatient R [facility] [id number] Univers 10:30:00 10:30:00 [facility] 2020-07-20 2020-07-20 Office [facility] 1.2.840.114 [id number] Univers 10:38:06 10:53:[address] [facility] 350.1.13.10 it y of Surgical 4.2.7.2.686 John as Specialti [phone] Me dical es 198 [facility] 2020-07-20 2020-07-20 Outpatient Ad[facility] [id number] Univers 10:45:00 10:45:00 [facility] 2020-07-17 2020-07-17 Orders Doctor AVELINA 1.2.840.114 [id number] Univers 00:00:00 00:00:00 Only Unassigned, JOSE ALBERTO 350.1.13.10 [place] [facility] 4.2.7.2.686 John as [phone] [address] 2020-07-11 2020-07-11 Ambulatory nullFlavo MNA [id number] Memoria 15:00:00 15:00:00 Pre-Reg r Neurology 18 l Pop [place] 2020-07-11 2020-07-11 Ambulatory nullFlavo MNA [id number] Memoria 15:00:00 15:00:00 Pre-Reg r Neurology 18 l [place] 2020-07-11 2020-07-11 Outpatient MHIE MHIE [id number] Memoria 10:00:00 10:00:00 18 l [place]uc[place] 2020-07-11 2020-07-11 Outpatient NOHELIA Boucher MISCHER [id number] 10:00:00 10:00:00 Tariq Brooklyn Sauceda 2020-07-03 2020-07-03 [facility] 1.2.119.862 [id number] Univers 14:05:02 14:20:59 Visit [facility] 350.1.13.10 it y of Surgical 4.2.7.2.686 John as Specialti [id number] Ks dical es 198 [facility] 2020-07-03 2020-07-03 Outpatient [facility] [id number] Univers 14:15:00 14:15:00 SARAH brewer [facility] 2020-06-20 2020-06-22 Outside nullFlavo MNA [id number] Memoria 14:09:53 04:59:59 Medical r Neurology 18 l Records [place] 2020-06-20 2020-06-22 Outside nullFlavo MNA [id number] Memoria 14:09:53 04:59:59 Medical r Neurology 18 l Records [place] 2020-06-20 2020-06-21 Outpatient MHMISCHER MHMISCHER [id number] 09:09:53 23:59:59 18 2020-06-12 2020-06-14 Outside nullFlavo MNA [id number] Memoria 20:48:48 04:59:59 Medical r Neurology 17 l Records [place] 2020-06-12 2020-06-14 Outside nullFlavo MNA [id number] Memoria 20:48:48 04:59:59 Medical r Neurology 17 l Records [place] 2020-06-12 2020-06-13 Outpatient MHMISCHER MHMISCHER [id number] 15:48:48 23:59:59 17 2020-05-23 2020-05-25 Outside nullFlavo MNA [id number] Memoria 20:20:15 04:59:59 Medical r Neurology 16 l Records [place] 2020-05-23 2020-05-25 Outside nullFlavo MNA [id number] Memoria 20:20:15 04:59:59 Medical r Neurology 16 l Records [place] 2020-05-23 2020-05-24 Outpatient [facility] [id number] 15:20:15 23:59:59 16 2020-05-11 2020-05-13 Outside nullFlavo MNA [id number] Memoria 14:57:14 05:59:59 Medical r Neurology 15 l Records [place] 2020-05-11 2020-05-13 Outside nullFlavo MNA [id number] Memoria 14:57:14 05:59:59 Medical r Neurology 15 l Records [place] 2020-05-11 2020-05-12 Outpatient [id number] 08:57:14 23:59:59 15 2020-05-11 2020-05-12 Between nullFlavo MNA [id number] Memoria 19:26:29 19:26:29 Visit r Neurology 17 l [place] 2020-05-11 2020-05-12 Between nullFlavo MNA [id number] Memoria 19:26:29 19:26:29 Visit r Neurology 17 l [place] 2020-05-11 2020-05-12 Outpatient MHMISCHER MISCHER [id number] 13:26:29 13:26:29 17 2020-05-05 2020-05-05 [facility] 1.2.840.114 [id number] Univers 08:29:03 23:59:00 Encounter Fabi [facility] 350.1.13.10 ity of Surgical 4.2.7.2.686 John as Specialti [phone] Ks dical es 809 [facility] 2020-05-05 2020-05-05 Outpatient [facility] [id number] Univers 08:29:03 23:59:00 FABI ity [facility] 2020-05-05 2020-05-05 Office [facility] 1.2.104.057 [id number] Univers 08:14:43 09:03:52 Visit Sarah [employer] 350.1.13.10 it y of Surgical 4.2.7.2.686 John as Specialti [phone] Ks dical es 198 [facility] 2020-05-03 2020-05-03 Telephone [facility] 1.2.840.114 [id number] Univers 00:00:00 00:00:00 Sarah [employer] 350.1.13.10 it y of Surgical 4.2.7.2.686 John as Specialti [phone] Ks dical es 198 [facility] 2020-04-11 2020-04-13 Outside nullFlavo MNA [id number] Memoria 21:31:30 05:59:59 Medical r Neurology 14 l Records [place] 2020-04-11 2020-04-13 Outside nullFlavo MNA [id number] Memoria 21:31:30 05:59:59 Medical r Neurology 14 l Records [place] 2020-04-11 2020-04-12 [id number] 15:31:30 23:59:59 14 2020-04-06 2020-04-07 Outpatient nullFlavo MNA [id number] Memoria 15:00:00 05:59:59 r Neurology 17 l [place] 2020-04-06 2020-04-07 Outpatient nullFlavo MNA [id number] Memoria 15:00:00 05:59:59 r Neurology 17 l [place] 2020-04-06 2020-04-06 Outpatient FAZAL BoucherSCHBENEDICTO MHMISCHER [id number] 09:00:00 23:59:59 Tariq Sauceda 2020-04-06 2020-04-06 Outpatient MHIE MHIE [id number] Memoria 09:00:00 09:00:00 17 john [place] 2020-04-05 2020-04-05 Office [facility] 1.2.223.913 [id number] [facility] 14:33:47 15:08:49 Visit Sarah [facility] 350.1.13.10 it y of Surgical 4.2.7.2.686 John as Specialti [phone] Ks dical 198 [facility] 2020-04-05 2020-04-05 [facility] [id number] Univers 14:30:00 14:30:00 SARAH brewer [facility] 2020-03-30 2020-04-01 Outside nullFlavo MNA [id number] Memoria 18:38:14 05:59:59 Medical r Neurology 13 l Records [place] 2020-03-30 2020-04-01 Outside nullFlavo MNA [id number] Memoria 18:38:14 05:59:59 Medical r Neurology 13 l Records Pop [place] 2020-03-30 2020-03-31 Outpatient MHMISCHER MHMISCHER [id number] 12:38:14 23:59:59 13 2020-03-27 2020-03-27 Orders Doctor QUAN 1.2.840.114 [id number] Univers 00:00:00 00:00:00 Only Unassigned, JOSE ALBERTO 350.1.13.10 ity of [place] [facility] 4.2.7.2.686 John as [phone] [address] 2020-02-25 2020-02-26 Outpatient nullFlavo MNA [id number] Memoria 20:00:00 05:59:59 r Neurology 16 l Pop [place] 2020-02-25 2020-02-26 Outpatient nullFlavo MNA [id number] Memoria 20:00:00 05:59:59 r Neurology 16 l [place] 2020-02-25 2020-02-25 Outpatient Citlaly [facility] [id number] 14:00:00 23:59:59 Tariq Omid Sauceda 2020-02-25 2020-02-25 Outpatient MHIE MHIE [id number] Memoria 14:00:00 14:00:00 16 l [place] 2020-01-27 2020-01-28 Outpatient nullFlavo MNA [id number] Memoria 16:45:00 05:59:59 r Neurology 15 l [place] 2020-01-27 2020-01-28 Outpatient nullFlavo MNA [id number] Memoria 16:45:00 05:59:59 r Neurology 15 l [place] 2020-01-27 2020-01-27 Outpatient Citlaly [facility] [id number] 10:45:00 23:59:59 Tariq 15 [place] 2020-01-27 2020-01-27 Outpatient MHIE MHIE [id number] Memoria 10:45:00 10:45:00 15 l [place] 2020-01-17 2020-01-19 Outside nullFlavo MNA [id number] Memoria 14:53:42 05:59:59 Medical r Neurology 11 l Records [place] 2020-01-17 2020-01-19 Outside nullFlavo MNA [id number] Memoria 14:53:42 05:59:59 Medical r Neurology 11 l Records [place] 2020-01-17 2020-01-18 Outpatient MHMISCHER MISCHER [id number] 08:53:42 23:59:59 11 2019-12-29 2019-12-31 Outside nullFlavo MNA [id number] Memoria 14:56:04 04:59:59 Medical r Neurology 10 l Records [place] 2019-12-29 2019-12-31 Outside nullFlavo MNA [id number] Memoria 14:56:04 04:59:59 Medical r Neurology 10 l Records [place] 2019-12-29 2019-12-30 Outpatient MHMISCHER MISCHER [id number] 09:56:04 23:59:59 10 2019 2019-12-22 Outside nullFlavo MNA [id number] Memoria 16:12:08 04:59:59 Medical r Neurology 09 l Records [place] 2019 2019-12-22 Outside nullFlavo MNA [id number] Memoria 16:12:08 04:59:59 Medical r Neurology 09 l Records [place] 2019-12-22 2019-12-22 [facility]phone [facility] 1.2.840.114 [id number] [facility] 00:00:00 00:00:00 [facility] 350.1.13.10 it y of [place] 4.2.7.2.686 John as Professio [phone] [address] Office [facility] 2019-12-22 2019-12-22 Telephone [facility] 1.2.840.114 [id number] 00:00:00 00:00:00 [facility] 350.1.13.10 [place] 4.2.7.2.686 Professio [phone] [place] [address] Office [facility] 2019 2019-12-21 Outpatient MHMISCHER MHMISCHER [id number] 11:12:08 23:59:59 09 2019 2019 [facility] 1.2.840.114 [id number] 14:33:07 14:38:53 Visit [facility] 350.1.13.10 [place] 4.2.7.2.686 Professio [phone] [place] [address] Office [facility] 2019 2019 [facility], [facility] Pob I [facility] 1.2. 840.114 [id number] [facility] 14:33:07 14:38:53 Visit WandaakashMaria Guadalupe leon [facility] 350.1.13 .10 ity of [place] 4.2.7.2.686 John as Professio [phone] [address] Office [facility] 2019 2019 Office [facility] 1.2.840.114 [id number] 14:04:23 14:19:23 Visit [facility] 350.1.13.10 [place] 4.2.7.2.686 Professio [phone] [place] 044 Office Building One 2019 2019 Office [facility] 1.2.840.114 [id number] Univers 14:04:23 14:19:23 Visit Maria Guadalupe [facility] 350.1.13.10 it y of [place] 4.2.7.2.686 John as Professio [phone] Ks dical [facility] 044 [place] Office [facility] 2019 2019 Outpatient [facility] [place] [id number] Univers 14:00:00 14:00:00 MARIA GUADALUPE thaddeus [facility] 2019-12-01 2019-12-03 Outside nullFlavo MNA [id number] Memoria 15:09:41 04:59:59 Medical r Neurology 08 l Records [facility] [place] 2019-12-01 2019-12-03 Outside nullFlavo MNA [id number] Memoria 15:09:41 04:59:59 Medical r Neurology 08 l Records [facility] [place] 2019-12-01 2019-12-02 Outpatient MHMISCHER MHMISCHER [id number] 10:09:41 23:59:59 08 2019-11-22 2019-11-24 Outside nullFlavo MNA [id number] Memoria 19:18:01 04:59:59 Medical r Neurology 07 l Records [facility] [place] 2019-11-22 2019-11-24 Outside nullFlavo MNA [id number] Memoria 19:18:01 04:59:59 Medical r Neurology 07 l Records [facility] [place] 2019-11-22 2019-11-23 Outpatient MHMISCHER MHMISCHER [id number] 14:18:01 23:59:59 07 2019-11-02 2019-11-02 Ambulatory nullFlavo MNA [id number] Memoria 14:45:00 14:45:00 Pre-Reg r Neurology 14 l [place] 2019-11-02 2019-11-02 Ambulatory nullFlavo MNA [id number] Memoria 14:45:00 14:45:00 Pre-Reg r Neurology 13 l [place] 2019-11-02 2019-11-02 Ambulatory nullFlavo MNA [id number] Memoria 14:45:00 14:45:00 Pre-Reg r Neurology 14 l [place] 2019-11-02 2019-11-02 Ambulatory nullFlavo MNA [id number] Memoria 14:45:00 14:45:00 Pre-Reg r Neurology 13 l [place] 2019-11-02 2019-11-02 Outpatient MHIE MHIE [id number] Memoria 09:45:00 09:45:00 13 l [place] 2019-11-02 2019-11-02 Outpatient MHIE MHIE [id number] Memoria 09:45:00 09:45:00 14 l [place] 2019-11-02 2019-11-02 Outpatient Citlaly, MHMISCHER MHMISCHER [id number] 09:45:00 09:45:00 Tariq 14 [facility] 2019-11-02 2019-11-02 Outpatient Citlaly, MHMISCHER MHMISCHER [id number] 09:45:00 09:45:00 Tariq 13 [facility] 2019-10-28 2019-10-28 [place] [address].2.840.114 [id number] Univers 00:00:00 00:00:00 [facility] 350.1.13.10 it y of [place] 4.2.7.2.686 John as Professio [phone] Ks dic[address] Office [facility] 2019-10-27 2019-10-27 [facility] 1.2.968.812 [id number] Univers 14:29:56 23:59:00 Encounter Maria Guadalupe [place] 350.1.13.10 ity of [place] 4.2.7.2.686 [facility] [phone] [facility] 807 [place] 2019-10-27 2019-10-27 [facility] 1.2.840.114 [id number] Univers 09:30:00 14:28:00 Encounter Debi Chou 350.1.13.10 ity of [place] 4.2.7.2.686 [facility] s [place] [phone] [address] 2019-10-27 2019-10-27 Outpatient R [facility] [id number] Univers 00:00:00 00:00:00 DEBI ity of [facility] 2019-10-27 2019-10-27 Orders Doctor AVELINA 1.2.840.114 [id number] Univers 00:00:00 00:00:00 Only Unassigned, JOSE ALBERTO 350.1.13.10 ity of [place] [facility] 4.2.7.2.686 John as [phone] [address] 2019-10-27 2019-10-27 Telephone [facility] 1.2.840.114 [id number] Univers 00:00:00 00:00:00 Maria Guadalupe Health 350.1.13.10 it y of [place] 4.2.7.2.686 John as Professio [phone] [address] 2019-10-26 2019-10-26 Telephone [facility] 1.2.840.114 [id number] Univers 00:00:00 00:00:00 Maria Guadalupe Health 350.1.13.10 it y of [place] 4.2.7.2.686 John as Professio [phone] [address] 2019-10-06 2019-10-06 Refill [facility] 1.2.840.114 [id number] Univers 00:00:00 00:00:00 Maria Guadalupe Health 350.1.13.10 it y of [place] 4.2.7.2.686 John as Professio [phone] [address] 2019-09-21 2019-09-21 [facility] 1.2.840.114 [id number] Univers 00:00:00 00:00:00 Maria Guadalupe [place] 350.1.13.10 i ty of [place] 4.2.7.2.686 [place] Profess[place] [phone] [address] 2019-09-21 2019-09-21 Orders Doctor AVELINA 1.2.840.114 [id number] Univers 00:00:00 00:00:00 Only Unassigned, JOSE ALBERTO 350.1.13.10 ity of [place] [facility] 4.2.7.2.686 John as [id number] [address] 2019-09-06 2019-09-06 Orders Doctor AVELINA 1.2.840.114 [id number] Univers 00:00:00 00:00:00 Only Unassigned, JOSE ALBERTO 350.1.13.10 ity of [place] [facility] 4.2.7.2.686 John as [phone] [address] 2019-07-30 2019-07-31 Outpatient nullFlavo MNA [id number] Memoria 14:15:00 04:59:59 r Neurology 11 l [facility] [place] 2019-07-30 2019-07-31 Outpatient nullFlavo MNA [id number] Memoria 14:15:00 04:59:59 r [facility] 11 [facility]-07-30 2019-07-30 Outpatient Citlaly MHMISCHER MHMISCHER [id number] 09:15:00 23:59:59 Tariq 11 [facility] 2019-07-30 2019-07-30 Outpatient MHIE MHIE [id number] Memoria 09:15:00 09:15:00 11 john [place] 2019-07-07 2019-07-07 [facility] 1.2.840.114 [id number] Univers 00:00:00 00:00:00 [facility] 350.1.13.10 it y of [place] 4.2.7.2.686 John as Professio [phone] [address] 2019-06-23 2019-06-23 [facility] 1.2.840.114 [id number] Univers 00:00:00 00:00:00 [facility] 350.1.13.10 it y of [place] 4.2.7.2.686 John as Professio [phone] [address] 2019-06-22 2019-06-22 Emergency [facility] 1.2.915.001 [id number] Univers 12:48:01 14:20:00 Ata [place]ou 350.1.13.10 i ty of [place] 4[place]2.7.2.686 [place] [phone] [address] 2019-06-22 2019-06-22 Emergency X , [facility] ERT [id number] Univers 12:48:01 14:20:00 ATA thaisthaddeus of [facility] 2019-06-22 2019-06-22 Telephone Petra [facility] 1.2.840.114 [id number] Univers 00:00:00 00:00:00 Maria Guadalupe [facility] 350.1.13.10 it y of [place] 4.2.7.2.686 John as Professio [phone] [address] Office [facility] 2019-05-27 2019-05-27 Orders Doctor AVELINA 1.2.840.114 [id number] Univers 00:00:00 00:00:00 Only Unassigned, JOSE ALBERTO 350.1.13.10 [facility] 4.2.7.2.686 John as [phone] [facility] [address] [place] 2019-05-07 2019-05-08 Outpatient nullFlavo MNA [id number] Memoria 17:00:00 05:59:59 r Neurology 12 l Pop [place] 2019-05-07 2019-05-08 Outpatient nullFlavo MNA [id number] Memoria 17:00:00 05:59:59 r Neurology 12 l Pop [place] 2019-05-07 2019-05-07 Outpatient ALESSANDRA BoucherMIJAMEL MHMISCHER [id number] 11:00:00 23:59:59 Tariq 12 [place] 2019-05-07 2019-05-07 Outpatient MHIE MHIE [id number] Memoria 11:00:00 11:00:00 12 john [place] 2019-03-25 2019-03-25 Office [facility] 1.2.840.114 [id number] Univers 13:36:36 14:30:43 Visit Debi [facility] 350.1.13.10 i ty of [place] 4.2.7.2.686 John as Professio [phone] [address] 2019-03-25 2019-03-25 Orders Doctor AVELINA 1.2.840.114 [id number] Univers 00:00:00 00:00:00 Only Unassigned, JOSE ALBERTO 350.1.13.10 ity of [place] [facility] 4.2.7.2.686 John as [phone] [address] 2019-01-29 2019-01-30 Outpatient nullFlavo MNA [id number] Memoria 19:45:00 05:59:59 r Neurology 10 john [place] 2019-01-29 2019-01-30 Outpatient nullFlavo MNA [id number] Memoria 19:45:00 05:59:59 r Neurology 10 john [place] 2019-01-29 2019-01-29 Outpatient [facility]aly [facility] [id number] 13:45:00 23:59:59 Tariq Surjit Sauceda 2019-01-29 2019-01-29 Outpatient MHIE MHIE [id number] Memoria 13:45:00 13:45:00 10 john [place] 2019-01-19 2019-01-19 Ambulatory nullFlavo MNA [id number] Memoria 19:00:00 19:00:00 Pre-Reg r Neurology 09 john [place] 2019-01-19 2019-01-19 Ambulatory nullFlavo MNA [id number] Memoria 19:00:00 19:00:00 Pre-Reg r Neurology 09 john [place] 2019-01-19 2019-01-19 Outpatient MHIE MHIE [id number] Memoria 13:00:00 13:00:00 Arturo [place] 2019-01-19 2019-01-19 Outpatient Citlaly JULIENNESCHER [facility] [id number] 13:00:00 13:00:00 Tariq Arturo Sauceda 2018-11-03 2018-11-03 Ambulatory nullFlavo MNA [id number] Memoria 14:15:00 14:15:00 Pre-Reg r Neurology 08 john [place] 2018-11-03 2018-11-03 Ambulatory nullFlavo MNA [id number] Memoria 14:15:00 14:15:00 Pre-Reg r Neurology 08 john [place] 2018-11-03 2018-11-03 Outpatient MHIE MHIE [id number] Memoria 09:15:00 09:15:00 08 john [place] 2018-11-03 2018-11-03 Outpatient ALESSANDRA BoucherNYSCHER MHMISCHER [id number] 09:15:00 09:15:00 Tariq 08 Sohail 2018-07-30 2018-07-31 Outpatient nullFlavo MNA [id number] Memoria 14:15:00 04:59:59 r Neurology 07 john [place] 2018-07-30 2018-07-31 Outpatient nullFlavo MNA [id number] Memoria 14:15:00 04:59:59 r Neurology 07 l Pop [place] 2018-07-30 2018-07-30 [facility] [id number] 09:15:00 23:59:59 Tariq 07 Sohail 2018-07-30 2018-07-30 Outpatient MHIE MHIE [id number] Memoria 09:15:00 09:15:00 07 john [place] 2018-06-18 2018-06-18 Outpatient MHIE MHIE [id number] Memoria 16:00:00 16:00:00 06 john [place] 2018-06-18 2018-06-18 Outpatient MHIE MHIE [id number] Memoria 16:00:00 16:00:00 06 john [place] 2018-06-02 2018-06-02 Outpatient MHIE MHIE [id number] Memoria 08:30:00 08:30:00 05 john [place] 2018-06-02 2018-06-02 Outpatient MHIE MHIE [id number] Memoria 08:30:00 08:30:00 05 john [place] 2018-04-15 2018-04-17 Outside nullFlavo MNA [id number] Memoria 20:22:00 05:59:59 Medical r Neurology 05 l Records Pop [place] 2018-04-15 2018-04-17 Outside nullFlavo MNA [id number] Memoria 20:22:00 05:59:59 Medical r Neurology 05 l Records [place] 2018-04-15 2018-04-16 [id number] 14:22:00 23:59:59 2018-04-10 2018-04-12 Outside nullFlavo MNA [id number] Memoria 19:36:00 05:59:59 Medical r Neurology 04 l Records [place] 2018-04-10 2018-04-12 Outside nullFlavo MNA [id number] Memoria 19:36:00 05:59:59 Medical r Neurology 04 l Records Pop [place] 2018-04-10 2018-04-11 Outpatient MHMISCHER MHMISCHER [id number] 13:36:00 23:59:59 04 2018-03-23 2018-03-25 Outside nullFlavo MNA [id number] Memoria 20:14:00 05:59:59 Medical r Neurology 03 l Records Pop [place] 2018-03-23 2018-03-25 Outside nullFlavo MNA [id number] Memoria 20:14:00 05:59:59 Medical r Neurology 03 l Records Pop [place] 2018-03-23 2018-03-24 Outpatient MHMISCHER MHMISCHER [id number] 14:14:00 23:59:59 03 2018-03-14 2018-03-16 Outside nullFlavo MNA [id number] Memoria 16:20:00 05:59:59 Medical r Neurology 02 l Records Pop [place] 2018-03-14 2018-03-16 Outside nullFlavo MNA [id number] Memoria 16:20:00 05:59:59 Medical r Neurology 02 l Records Pop [place] 2018-03-14 2018-03-15 Outpatient MHMISCHER MHMISCHER [id number] 10:20:00 23:59:59 02 2018-02-04 2018-02-04 Ambulatory nullFlavo MNA [id number] Memoria 15:45:00 15:45:00 Pre-Reg r Neurology 04 l Pop Knappann 2018-02-04 2018-02-04 Ambulatory nullFlavo MNA [id number] Memoria 15:45:00 15:45:00 Pre-Reg r Neurology 04 l Scottsdaleluiz Knappann 2018-02-04 2018-02-04 Outpatient MHIE MHIE [id number] Memoria 09:45:00 09:45:00 Bill lopez Cuco 2018-02-04 2018-02-04 Outpatient Citlaly MISCHER MISCHER [id number] 09:45:00 09:45:00 Tariq Sauceda 2017-12-23 2017-12-23 Ambulatory nullFlavo MNA [id number] Memoria 14:00:00 14:00:00 Pre-Reg r Neurology 01 l Pop [place] 2017-12-23 2017-12-23 Ambulatory nullFlavo MNA [id number] Memoria 14:00:00 14:00:00 Pre-Reg r Neurology 01 john [place] 2017-12-23 2017-12-23 Outpatient MHIE MHIE [id number] Memoria 09:00:00 09:00:00 01 john KnappCuco 2017-12-23 2017-12-23 Outpatient [facility] [id number] 09:00:00 09:00:00 Tariqlisa Sauceda 2017-11-05 2017-11-05 Outpatient MHIE MHIE [id number] Memoria 10:30:00 10:30:00 03 john Cuco 2017-11-05 2017-11-05 Outpatient MHIE MHIE [id number] Memoria 10:30:00 10:30:00 02 john Cuco 2017-11-05 2017-11-05 Outpatient MHIE MHIE [id number] Memoria 10:30:00 10:30:00 02 john Cuco 2017-11-05 2017-11-05 Outpatient MHIE MHIE [id number] Memoria 10:30:00 10:30:00 03 john [place] 2017-06-24 2017-06-24 Outpatient MHIE MHIE [id number] Memoria 11:30:00 11:30:00 00 john [place] 2017-06-24 2017-06-24 Outpatient MHIE MHIE [id number] Memoria 11:30:00 11:30:00 00 john [place] Results This patient has no known results.
[2022-11-25 21:41] LABS: Absolute Lymphocytes (CBC) 3.4 K/uL (0.7-4.9); Lymphocytes % 28.5 % (15.3-44.8); MCV 80.3 fL (80-100); MPV 7.7 fL (7.6-11.3); Platelets 311 thou/uL (152-406); RBC Red Blood Cell Count 5.23 M/uL (4.33-5.43)
[2022-11-25] MEDS ORDERED: FENTANYL CITR 100 MCG/2 ML ONE (21:45)
[2022-11-25] MEDS ORDERED: NA CHLORIDE 0.9% 500 ML ONE (21:45)
[2022-11-25] MEDS ORDERED: ONDANSETRON 4 MG/2 ML VIAL ONE (21:45)
[2022-11-25 22:22] LABS: Specific Gravity 1.026 (1.005-1.030); Urine Bacteria <20 /HPF (<20); Urine Bilirubin NEGATIVE (Negative); Urine Blood Negative (Negative); Urine Clarity Clear (Clear); Urine Color Yellow (Yellow); Urine Glucose NEGATIVE (Negative); Urine Mucus Slight /HPF (None Seen); Urine Protein 1+ (Negative); Urine RBC <5 /HPF (None Seen); Urine Urobilinogen Normal (Normal)
[2022-11-25 22:26] LABS: Albumin 3.9 g/dL (3.4-5.0); Bilirubin Total 0.6 mg/dL (0.2-1.0); Potassium 3.8 mEq/L (3.5-5.1); Protein, Total 8.1 g/dL (6.4-8.2)
--- NOTE | 2022-11-25 22:34 | RAD REPORT ---
EXAM DESCRIPTION: CT - Abdomen Pelvis Wo Contrast - 11/25/2022 10:11 pm CLINICAL HISTORY: bladder pain COMPARISON: Abdomen Pelvis W Contrast dated 09/30/2022; Abdomen Pelvis W Contrast dated 01/15/2022 ; CT ABD PELVIS W CONTRAST dated 09/13/2011 TECHNIQUE: Thin cut axial CT imaging of the abdomen and pelvis was performed without IV contrast. Mu ltiplanar reformats were generated and reviewed. All CT scans are performed using dose optimization technique as appropriate and may include automated exposure control or mA/KV adjustment according to patient size. FINDINGS: No suspicious findings in the lung bases. The liver, spleen, adrenal glands, and pancreas show no suspicious findings. Gallbladder shows large cholesterol containing stones along the body and neck. Symmetric renal contour, without suspicious parenchymal findings within limits of noncontrast techniq ue. No evidence of radiopaque calculi or hydroureteronephrosis. No dilated bowel loops or bowel wall thickening. Colonic diverticulosis. No free air, free fluid or i nflammatory stranding. No hernia, mass or bulky lymphadenopathy. The urinary bladder is decompressed with Mccarthy catheter in place, which limits evaluation. 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 No suspicious bony findings. IMPRESSION: No acute intra-abdominal process. 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 Urinary bladder is decompressed which limits evaluation, with Mccarthy catheter in place.
--- NOTE | 2022-11-26 00:24 | EDPHYS ---
Physician Documentation [facility] Name: Ranulfo Chao Age: 86 yrs Sex: Male : 1935 Arrival Date: 11/25/2022 Time: 20:37 Bed IW5 Private MD: ED Physician Graham Gates HPI: 11/25 21:22 This 86 yrs old Male presents to ER via Unassigned with complaints of Back sp4 Pain, Abdominal Pain, General Weakness. 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 Patient's family also reports that he has significant diarrhea for the past several days.. Denied bloody stools, denied melena.. 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 - Social history:: Smoking status: Patient/guardian denies using tobacco, but has a distant history of tobacco abuse. - Family history:: not pertinent. ROS: 11/26 08:38 Constitutional: Negative for fever, chills, and weight loss, Abdomen/GI: Positive for sp4 abdominal pain, diffuse abdominal pain, positive for diarrhea, negative for vomiting All other systems are negative, Exam: 08:38 Constitutional: This is a well developed, well nourished patient who is awake, alert, sp4 and in no acute distress. Frail elderly male with signs of moderate dementia Head/Face: Normocephalic, atraumatic. Eyes: Pupils equal round and reactive to light, extra-ocular motions intact. Lids and lashes normal. Conjunctiva and sclera are not injected. Cornea within normal limits. Periorbital areas with no swelling, redness, or edema. ENT: Nares patent. No nasal discharge, no septal abnormalities noted. Tympanic membranes are normal and external auditory canals are clear. Oropharynx with no redness, swelling, or masses, exudates, or evidence of obstruction, uvula midline. Mucous membranes moist. Neck: Trachea midline, no thyromegaly or masses palpated, and no cervical lymphadenopathy. Supple, full range of motion without nuchal rigidity, or vertebral point tenderness. Chest/axilla: Normal chest wall appearance and motion. Nontender with no deformity. No lesions are appreciated. Cardiovascular: Regular rate and rhythm with a normal S1 and S2. No gallops, murmurs, or rubs. Normal PMI, no JVD. No pulse deficits. Respiratory: Lungs have equal breath sounds bilaterally, clear to auscultation and percussion. No rales, rhonchi or wheezes noted. No increased work of breathing, no retractions or nasal flaring. Abdomen/GI: Soft, non-tender, with normal bowel sounds. No distension or tympany. No guarding or rebound. Diffuse abdominal discomfort without rigidity or peritonitis Back: No spinal tenderness. No costovertebral tenderness. Male : Normal genitalia with no discharge or lesions. Circumcised male, Skin: Warm, dry with normal turgor. Normal color with no rashes, no lesions, and no evidence of cellulitis. MS/ Extremity: Pulses equal, no cyanosis. Neurovascular intact. Full, normal range of motion. Neuro: Awake and alert, GCS 15, oriented to person, place, time, and situation. Cranial nerves II-XII grossly intact. Motor strength 5/5 in all extremities. Sensory grossly intact. Psych: Awake, alert, with orientation to person, place and time. Behavior, mood, and affect are within normal limits Vital Signs: 11/25 21:24 BP 141 / 73; Pulse 100; Resp 17; Temp 98.2(TE); Pulse Ox 100% on R/A; Weight 65.32 kg; me1 Height 5 ft. 6 in. ; Pain 10/10; 22:00 BP 136 / 85; Pulse 82; Resp 16; Pulse Ox 99% on R/A; kl 11/26 00:08 BP 113 / 78; Pulse 77; Resp 16 S; Pulse Ox 99% on R/A; lg3 11/25 21:24 Body Mass Index 23.24 (65.32 kg, 167.64 cm) me1 11/25 21:24 Pain Scale: Adult me1 MDM: 11/25 21:24 Patient medically screened. 4 11/26 00:22 Data reviewed: vital signs, nurses notes, old medical records, lab test result(s), sp4 radiologic studies, CT scan. Consideration of Admission/Observation Escalation of care including admission/observation considered. ED course: Patient reported diarrheal illness as well for the past 3 weeks. I will treat as for bacterial colitis. Rectal exam revealed no signs of bloody diarrhea. C. difficile at this time is unlikely . 08:38 Differential diagnosis: Acute Hemolysis chronic back pain, Fatigue Fracture Joint sp4 Injury Myeloma. ED course: CT - FINDINGS: No suspicious findings in the lung bases. The liver, spleen, adrenal glands, and pancreas show no suspicious findings. Gallbladder shows large cholesterol containing stones along the body and neck. Symmetric renal contour, without suspicious parenchymal findings within limits of noncontrast technique. No evidence of radiopaque calculi or hydroureteronephrosis. No dilated bowel loops or bowel wall thickening. Colonic diverticulosis. No free air, free fluid or inflammatory stranding. No hernia, mass or bulky lymphadenopathy. The urinary bladder is decompressed with Mccarthy catheter in place, which limits evaluation. 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 No suspicious bony findings. IMPRESSION: No acute intra-abdominal process. 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 Urinary bladder is decompressed which limits evaluation, with Mccarthy catheter in place.. 11/25 21:24 Order name: CBC with Diff; Complete Time: 00:04 [facility] 11/25 21:24 Order name: CMP; Complete Time: 00:04 [facility] 11/25 21:24 Order name: Lipase; Complete Time: 00:04 [facility] 11/25 21:24 Order name: Urinalysis w/ reflexes; Complete Time: 00:04 [facility] 11/25 21:24 Order name: CT Abd/Pelvis - Without Contrast; Complete Time: 00:04 [facility] 11/25 21:24 Order name: IV Saline Lock; Complete Time: 22:14 [facility] 11/25 21:24 Order name: Labs collected and sent; Complete Time: 22:14 [facility] 11/25 21:24 Order name: Mccarthy; Complete Time: 21:58 sp4 Administered Medications: 11/25 21:30 Drug: Ondansetron IVP 4 mg IVP once; over 2 minutes Route: IVP; Site: left antecubital; 21:58 Drug: fentaNYL (PF) IVP 50 mcg IVP once Route: IVP; Site: left antecubital; 11/26 00:39 Follow up: Response: No adverse reaction 11/25 21:58 Drug: Ondansetron IVP 4 mg IVP once; over 2 minutes Route: IVP; Site: left antecubital; 11/26 00:38 Follow up: Response: No adverse reaction 11/25 20:58 Drug: NS 0.9% IV 500 ml IV at bolus once Route: IV; Rate: bolus; Site: left antecubital; Disposition Summary: 11/26/22 00:23 Discharge Ordered Problem: new sp4 Symptoms: have improved sp4 Condition: Stable sp4 Diagnosis - Infectious gastroenteritis and colitis, unspecified sp4 - Acute nonbloody diarrhea, abdominal pain, lower abdominal pain, gastroenteritis sp4 and colitis Followup: sp4 - With: Private Physician - When: 7 - 10 days - Reason: Recheck today's complaints Discharge Instructions: - Discharge Summary Sheet sp4 - Diarrhea, Adult, [id number] sp4 Forms: - Patient Portal Instructions sp4 Prescriptions: - ondansetron 4 mg Oral Tablet,disintegrating - take 1 tablet by ORAL route every 6 hours; 30 tablet; Refills: 0, Product sp4 Selection Permitted - Cephalexin 500 mg Oral Capsule - take 1 capsule by ORAL route every 8 hours for 10 days; 30 capsule; Refills: 0, sp4 Product Selection Permitted - Flagyl 500 mg Oral Tablet - take 1 tablet by ORAL route every 8 hours for 10 days; 30 tablet; Refills: 0, sp4 Product Selection Permitted - Tramadol 50 mg Oral Tablet - take 1 tablet by ORAL route every 8 hours as needed; 20 tablet; Refills: 0, sp4 Product Selection Permitted - dicyclomine 10 mg Oral Capsule - take 2 capsules by ORAL route every 8 hours PRN abdominal pain; 60 capsule; sp4 Refills: 0, Product Selection Permitted Signatures: Dispatcher [employer] Nenita Knight RN RN kl Potepalov, Sergey, MD MD sp4 Jessica Martin, RN RN me1
--- NOTE | 2022-11-26 00:24 | ER ---
Nurse's Notes [facility] Name: Ranulfo Chao Age: 86 yrs Sex: Male : 1935 Arrival Date: 11/25/2022 Time: 20:37 Bed IW5 Private MD: Diagnosis: Infectious gastroenteritis and colitis, unspecified;Acute nonbloody diarrhea, abdominal pain, lower abdominal pain, gastroenteritis and colitis Presentation: 11/25 21:24 Chief complaint: Spouse and/or significant other states: c/o lower abdominal pain, me1 lower back pain and pain to BLE that has gotten so severe that he can not walk. Coronavirus screen: Vaccine status: Patient reports being unvaccinated. Ebola Screen: No symptoms or risks identified at this time. Initial Sepsis Screen: Does the patient meet any 2 criteria? No. Patient's initial sepsis screen is negative. Does the patient have a suspected source of infection? No. Patient's initial sepsis screen is negative. Risk Assessment: Do you want to hurt yourself or someone else? Patient reports no desire to harm self or others. Onset of symptoms is unknown. 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 - Social history:: Smoking status: Patient/guardian denies using tobacco, but has a distant history of tobacco abuse. - Family history:: not pertinent. Screenin:59 [facility] ED Fall Risk Assessment (Adult) History of falling in the last 3 months, kl including since admission No falls in past 3 months (0 pts) Confusion or Disorientation No (0 pts) Intoxicated or Sedated No (0 pts) Impaired Gait No (0 pts) Mobility Assist Device Used No (0 pt) Altered Elimination No (0 pt) Score/Fall Risk Level 0 - 2 = Low Risk Oriented to surroundings, Maintained a safe environment. Abuse screen: Denies threats or abuse. Nutritional screening: No deficits noted. Tuberculosis screening: No symptoms or risk factors identified. Assessment: 22:00 Reassessment: Patient appears in no apparent distress at this time. Patient and/or family updated on plan of care and expected duration. Pain level reassessed. Patient is alert, oriented x 3, equal unlabored respirations, skin warm/dry/pink. Patient states feeling better. Patient states symptoms have improved. Neuro: No deficits noted. Level of Consciousness is awake, alert, obeys commands. 11/26 00:08 Reassessment: Patient appears in no apparent distress at this time. No changes from lg3 previously documented assessment. Patient and/or family updated on plan of care and expected duration. Pain level reassessed. Patient is alert, oriented x 3, equal unlabored respirations, skin warm/dry/pink. 03:07 General: see downtime forms . as6 Vital Signs: 11/25 21:24 BP 141 / 73; Pulse 100; Resp 17; Temp 98.2(TE); Pulse Ox 100% on R/A; Weight 65.32 kg; me1 Height 5 ft. 6 in. ; Pain 10/10; 22:00 BP 136 / 85; Pulse 82; Resp 16; Pulse Ox 99% on R/A; kl 11/26 00:08 BP 113 / 78; Pulse 77; Resp 16 S; Pulse Ox 99% on R/A; lg3 11/25 21:24 Body Mass Index 23.24 (65.32 kg, 167.64 cm) vt1 11/25 21:24 Pain Scale: Adult vt1 ED Course: 11/25 20:45 Patient arrived in ED. cc5 21:22 Graham Gates MD is Attending Physician. sp4 21:26 Triage completed. vt1 21:27 Arm band placed on Patient placed in waiting room. vt1 21:30 Inserted saline lock: 22 gauge in right antecubital area, using aseptic technique. Blood collected. 21:59 Mccarthy cath inserted, using sterile technique, 16 Fr., by vt, balloon inflated, to gravity drainage, urine specimen collected. 22:03 Urinalysis w/ reflexes Sent. 22:13 CT Abd/Pelvis - Without Contrast In Process Unspecified. EDMS Administered Medications: 21:30 Drug: Ondansetron IVP 4 mg IVP once; over 2 minutes Route: IVP; Site: left antecubital; 21:58 Drug: fentaNYL (PF) IVP 50 mcg IVP once Route: IVP; Site: left antecubital; 11/26 00:39 Follow up: Response: No adverse reaction 11/25 21:58 Drug: Ondansetron IVP 4 mg IVP once; over 2 minutes Route: IVP; Site: left antecubital; 11/26 00:38 Follow up: Response: No adverse reaction 11/25 20:58 Drug: NS 0.9% IV 500 ml IV at bolus once Route: IV; Rate: bolus; Site: left antecubital; Outcome: 11/26 00:23 Discharge ordered by MD. marrero 03:07 Patient left the ED. as6 Signatures: Dispatcher [employer] Nenita Knight RN Marilee Keller RN RN lg3 Anthony Abdul RN RN as6 Agatha Cabezas5 Graham Gates MD MD sp4 Jessica Martin RN RN me1
[2022-11-26] MEDS ORDERED: metroNIDAZOLE 500 MG TABLET ONE (00:58)
[2022-11-26] MEDS ORDERED: TRAMADOL HCL 50 MG TAB ONE (00:58)
[2022-11-26] MEDS ORDERED: CEPHALEXIN 250 MG CAP ONE (00:59)
[2022-11-26] MEDS ORDERED: DICYCLOMINE HCL 10 MG CAP ONE (00:59)
[2022-11-26 03:35] VITALS: TEMP 98.2
[2022-11-26 03:41] VITALS: O2SAT 99
[2022-11-26 03:59] VITALS: BP 113/78
== END 2022-11-26 03:07 | disposition home or self-care (01) ==
LOC: ER 20:37
DX: A09 Infectious gastroenteritis and colitis, unspecified (principal); I10 Essential (primary) hypertension; Z88.1 Allergy status to other antibiotic agents; Z88.5 Allergy status to narcotic agent; Z88.7 Allergy status to serum and vaccine
CPT/HCPCS: 85025; 81001; 36415; 83690; 80053; 74176; J3010; J2405; J7040

== ENCOUNTER → 2023-04-04 | Emergency (ER) | payer OTHER ==
[~2023-04-04] MED LIST: FAMOTIDINE 20 MG/2 ML VIAL IV ONE; KETOROLAC 30 MG/ML INJ ONE; NA CHLORIDE 0.9% 1,000 ML ONE
[2023-04-04 09:09] LABS: Absolute Lymphocytes (CBC) 2.9 K/uL (0.7-4.9); Hematocrit 38.1 % (39.6-49.0); Lymphocytes % 28.8 % (15.3-44.8); MCV 85.1 fL (80-100); MPV 7.5 fL (7.6-11.3); Platelets 387 thou/uL (152-406); RBC Red Blood Cell Count 4.47 M/uL (4.33-5.43)
[2023-04-04 09:25] LABS: Bilirubin Total 0.7 mg/dL (0.2-1.0); Potassium 4.3 mEq/L (3.5-5.1)
--- NOTE | 2023-04-04 10:09 | RAD REPORT ---
EXAM DESCRIPTION: CT - Abdomen Pelvis W Contrast - 04/04/2023 9:47 am CLINICAL HISTORY: ABD PAIN COMPARISON: Abdomen Pelvis W Contrast dated 09/30/2022; Abdomen Pelvis W Contrast dated 01/15/2022 ; CT ABD PELVIS W CONTRAST dated 09/13/2011 TECHNIQUE: Thin cut axial CT imaging of the abdomen and pelvis was performed following intravenous a dministration of 100 mL Isovue 300. Multiplanar reformats were generated and reviewed. All CT scans are performed using dose optimization technique as appropriate and may include automated exposure control or mA/KV adjustment according to patient size. FINDINGS: No suspicious findings in the lung bases. The liver, spleen, adrenal glands, and pancreas show no suspicious findings. Gallbladder demonstrates at least 2 sizable cholesterol containing stones. Symmetric renal function is seen with no hydronephrosis or suspicious renal mass. No dilated bowel loops or bowel wall thickening. Appendix is unremarkable. Colonic diverticulosis. No free air, free fluid or inflammatory stranding. No suspicious mass or bulky lymphadenopathy. Small b ilateral inguinal hernias containing fat. The urinary bladder is without significant finding. Moderat e prostatomegaly. No suspicious bony findings. Sequelae of lower lumbar hardware fusion and vertebral augmentation at L 4. IMPRESSION: No acute intra-abdominal process. Cholelithiasis. Colonic diverticulosis
[2023-04-04 11:14] LABS: Specific Gravity 1.025 (1.005-1.030); Urine Bilirubin NEGATIVE (Negative); Urine Blood Negative (Negative); Urine Clarity Clear (Clear); Urine Color Light-Yellow (Yellow); Urine Glucose NEGATIVE (Negative); Urine Protein NEGATIVE (Negative); Urine Urobilinogen Normal (Normal); Urine pH 5.5 (5.0-7.0)
--- NOTE | 2023-04-04 11:31 | ER ---
Nurse's Notes [facility] Name: Ranulfo Chao Age: 87 yrs Sex: Male : 1935 Arrival Date: 04/04/2023 Time: 08:33 Bed 14 Private MD: Edwardo Yu V Diagnosis: Lower abdominal pain, unspecified Presentation: 04/04 08:44 Chief complaint: Left lower abdominal pain x months, pain began to radiate to left hb testicle a few days ago. Sent for outpatient CT by Dr. Curtis this morning, came to ED instead due to pain. Coronavirus screen: At this time, the client does not indicate any symptoms associated with coronavirus-19. Ebola Screen: No symptoms or risks identified at this time. Initial Sepsis Screen: Does the patient meet any 2 criteria? No. Patient's initial sepsis screen is negative. Does the patient have a suspected source of infection? No. Patient's initial sepsis screen is negative. Risk Assessment: Do you want to hurt yourself or someone else? Patient reports no desire to harm self or others. Onset of symptoms was January 2024. 08:44 Method Of Arrival: Ambulatory hb 08:44 Acuity: SABINE 3 hb Historical: - Allergies: 08:46 Codeine; hb 08:46 Influenza Virus Vaccines; hb 08:46 Levaquin; hb - PMHx: 08:46 BPH; guillian barre; High Cholesterol; Hypertension; Spondylosis with radiculopathy to hb lumbar; - PSHx: 08:46 Tonsillectomy; hb - Immunization history:: Adult Immunizations up to date. - Social history:: Smoking status: Patient denies any tobacco usage or history of. Screenin:09 [facility] ED Fall Risk Assessment (Adult) History of falling in the last 3 months, mb9 including since admission No falls in past 3 months (0 pts) Confusion or Disorientation No (0 pts) Intoxicated or Sedated No (0 pts) Impaired Gait No (0 pts) Mobility Assist Device Used No (0 pt) Altered Elimination No (0 pt) Score/Fall Risk Level 0 - 2 = Low Risk Oriented to surroundings, Maintained a safe environment, Educated pt \T\ family on fall prevention, incl call for assistance when getting out of bed. Abuse screen: Denies threats or abuse. Nutritional screening: No deficits noted. Tuberculosis screening: No symptoms or risk factors identified. Assessment: 09:08 General: Appears uncomfortable, Behavior is cooperative. Pain: Complains of pain in mb9 abdomen Pain does not radiate. Pain currently is 10 out of 10 on a pain scale. Quality of pain is described as throbbing, Is continuous. Neuro: Elliott Agitation-Sedation Scale (RASS): 0 - Alert and Calm Level of Consciousness is awake, alert, obeys commands, Oriented to person, place, time, situation, Appropriate for age. Cardiovascular: Patient's skin is warm and dry. Respiratory: Airway is patent Respiratory effort is even, unlabored, Respiratory pattern is regular, symmetrical, Breath sounds are clear bilaterally. GI: Abdomen is round non-distended, Bowel sounds present X 4 quads. Abd is soft Abdomen is tender to palpation in right lower quadrant and left lower quadrant Reports diarrhea. : No signs and/or symptoms were reported regarding the genitourinary system. EENT: No signs and/or symptoms were reported regarding the EENT system. Derm: Skin is pink, warm \T\ dry. Musculoskeletal: Range of motion: intact in all extremities. 09:37 Reassessment: pt taken to CT via stretcher. mb9 11:00 Reassessment: No changes from previously documented assessment. Patient and/or family mb9 updated on plan of care and expected duration. Pain level reassessed. Patient is alert, oriented x 3, equal unlabored respirations, skin warm/dry/pink. Vital Signs: 08:44 BP 153 / 96; Pulse 104; Resp 16; Temp 98.2(O); Pulse Ox 98% on R/A; Weight 75.3 kg; hb Height 5 ft. 5 in. ; Pain 9/10; 08:54 BP 135 / 89; Pulse 111; Resp 16; Temp 98.1; Pulse Ox 95% ; jg11 11:20 BP 143 / 81; Pulse 90; Resp 18; Pulse Ox 98% on R/A; mb9 08:44 Body Mass Index 27.62 (75.30 kg, 165.1 cm) hb 08:44 Pain Scale: Adult hb ED Course: 08:33 Patient arrived in ED. rg4 08:33 Edwardo Yu MD is Private Physician. rg4 08:34 Gerardo Dodson DO is Attending Physician. ms3 08:46 Triage completed. hb 08:46 Arm band placed on. hb 08:54 Initial lab(s) drawn, by me. Inserted saline lock: 20 gauge in right antecubital area, jg11 using aseptic technique. Blood collected. 08:58 Porsha Gonzalez, RN is Primary Nurse. mb9 09:07 CBC with Diff Sent. mb9 09:07 CMP Sent. mb9 09:07 Lipase Sent. mb9 09:08 Placed in gown. Bed in low position. Call light in reach. Side rails up X 1. Client mb9 placed on continuous cardiac and pulse oximetry monitoring. NIBP monitoring applied. 09:09 No provider procedures requiring assistance completed. mb9 09:49 CT Abd/Pelvis - IV Contrast Only In Process Unspecified. EDMS 11:11 Urine collected: straight cath specimen, clear, Amount Returned: 750mL. jg11 11:29 Edwardo Yu MD is Referral Physician. ms3 11:45 IV discontinued, intact, bleeding controlled, No redness/swelling at site. Pressure mb9 dressing applied. Administered Medications: 09:02 Drug: TORadol - Ketorolac IVP 10 mg IVP once Route: IVP; Site: right antecubital; mb9 09:55 Follow up: Response: No adverse reaction mb9 09:07 Drug: NS 0.9% IV 1000 ml IV at 1 bolus Per protocol; 1000 mL bolus Route: IV; Rate: 1 mb9 bolus; Site: right antecubital; 11:45 Follow up: Response: No adverse reaction; IV Status: Completed infusion mb9 09:07 Drug: Famotidine IVP 20 mg IVP once; dilute with 10 mL 0.9% NaCl; give over 2 minutes mb9 Route: IVP; Site: right antecubital; 09:55 Follow up: Response: No adverse reaction mb9 Medication: 09:09 VIS not applicable for this client. mb9 Outcome: 11:30 Discharge ordered by . ms3 11:45 Discharged to home via wheelchair, with family, mb9 11:45 Condition: stable 11:45 Discharge instructions given to patient, family, Instructed on discharge instructions, follow up and referral plans. Demonstrated understanding of instructions, follow-up care, 11:45 Patient left the ED. mb9 Signatures: Dispatcher [employer] EDMS Millicent Salcedo RN RN Jeny Cordova rg4 Gerardo Dodson, DO SARMIENTO ms3 Porsha Gonzalez RN RN mb9 Christopher Ramos jg11 Corrections: (The following items were deleted from the chart) 11:21 11:20 BP 117 / 80; Pulse 75bpm; Resp 18bpm; Pulse Ox 100% RA; mb9 mb9
--- NOTE | 2023-04-04 11:31 | EDPHYS ---
Physician Documentation [facility] Name: Ranulfo Choa Age: 87 yrs Sex: Male : 1935 Arrival Date: 04/04/2023 Time: 08:33 Bed 14 Private MD: Edwardo Yu V ED Physician Gerardo Dodson HPI: 04/04 09:50 This 87 yrs old Male presents to ER via Ambulatory with complaints of Abdominal Pain. 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 Patient states taking his pain pills at home improved his symptoms. Patient states his pain was a 10/10 and is currently an 8/10. Patient denies any inciting factors.. Historical: - Allergies: 08:46 Codeine; hb 08:46 Influenza Virus Vaccines; hb 08:46 Levaquin; hb - PMHx: 08:46 BPH; guillian barre; High Cholesterol; Hypertension; Spondylosis with radiculopathy to hb lumbar; - PSHx: 08:46 Tonsillectomy; hb - Immunization history:: Adult Immunizations up to date. - Social history:: Smoking status: Patient denies any tobacco usage or history of. ROS: 09:50 Constitutional: Negative for fever, and chills. Neck: Negative for injury, pain, and ms3 swelling, Cardiovascular: Negative for chest pain, and palpitations. Respiratory: Negative for shortness of breath, cough, wheezing, and pleuritic chest pain, 09:50 Abdomen/GI: Positive for abdominal pain, 09:50 All other systems are negative, Exam: 09:50 Constitutional: This is a well developed, well nourished patient who is awake, alert, ms3 and in no acute distress. Head/Face: Normocephalic, atraumatic. Neck: Trachea midline, no cervical lymphadenopathy. Supple, full range of motion without nuchal rigidity, or vertebral point tenderness. No Meningismus. Chest/axilla: Normal chest wall appearance and motion. Nontender with no deformity. Cardiovascular: Regular rate and rhythm with a normal S1 and S2. No gallops, murmurs, or rubs. Normal PMI, no JVD. No pulse deficits. Respiratory: Lungs have equal breath sounds bilaterally, clear to auscultation and percussion. No rales, rhonchi or wheezes noted. No increased work of breathing, no retractions or nasal flaring. 09:50 Abdomen/GI: Inspection: abdomen appears normal, Bowel sounds: normal, Palpation: mild abdominal tenderness, in the right lower quadrant and left lower quadrant, Vital Signs: 08:44 BP 153 / 96; Pulse 104; Resp 16; Temp 98.2(O); Pulse Ox 98% on R/A; Weight 75.3 kg; hb Height 5 ft. 5 in. ; Pain 9/10; 08:54 BP 135 / 89; Pulse 111; Resp 16; Temp 98.1; Pulse Ox 95% ; jg11 11:20 BP 143 / 81; Pulse 90; Resp 18; Pulse Ox 98% on R/A; mb9 08:44 Body Mass Index 27.62 (75.30 kg, 165.1 cm) hb 08:44 Pain Scale: Adult hb MDM: 08:54 Patient medically screened. ms3 09:50 Differential diagnosis: appendicitis, bowel obstruction, non-specific abd pain, urinary ms3 tract infection. 11:30 Data reviewed: vital signs, nurses notes, lab test result(s), and as a result, I will ms3 discharge patient. Historians other than the Patient: Spouse/Significant Other: Patient's . Care significantly affected by the following chronic conditions: Hypertension. Counseling: I had a detailed discussion with the patient and/or guardian regarding the historical points, exam findings, and any diagnostic results supporting the discharge/admit diagnosis, lab results, radiology results, the need for outpatient follow up, to return to the emergency department if symptoms worsen or persist or if there are any questions or concerns that arise at home. Special discussion: Based on the patient's Hx, exam, and Dx evaluation, there is no indication for emergent surgery or inpatient Tx. It is understood by the patient/guardian that if the Sx's persist or worsen they need to return immediately for re-evaluation. ED course: Discussed labs, urinalysis, CT with patient and his . Patient to follow-up with primary care physician 2 to 3 days. Patient understands and agrees with plan. All questions were answered. Return precautions discussed include worsening symptoms, or any other concerns. 04/04 08:55 Order name: CBC with Diff; Complete Time: 09:45 ms3 04/04 08:55 Order name: CMP; Complete Time: 09:45 ms3 04/04 08:55 Order name: Lipase; Complete Time: 09:45 ms3 04/04 10:41 Order name: Urinalysis w/ reflexes; Complete Time: 11:16 ms3 04/04 08:55 Order name: CT Abd/Pelvis - IV Contrast Only; Complete Time: 10:22 ms3 04/04 08:55 Order name: IV Saline Lock; Complete Time: 09:07 ms3 04/04 08:55 Order name: Labs collected and sent; Complete Time: 09:07 ms3 Administered Medications: 09:02 Drug: TORadol - Ketorolac IVP 10 mg IVP once Route: IVP; Site: right antecubital; mb9 09:55 Follow up: Response: No adverse reaction mb9 09:07 Drug: NS 0.9% IV 1000 ml IV at 1 bolus Per protocol; 1000 mL bolus Route: IV; Rate: 1 mb9 bolus; Site: right antecubital; 11:45 Follow up: Response: No adverse reaction; IV Status: Completed infusion mb9 09:07 Drug: Famotidine IVP 20 mg IVP once; dilute with 10 mL 0.9% NaCl; give over 2 minutes mb9 Route: IVP; Site: right antecubital; 09:55 Follow up: Response: No adverse reaction mb9 Disposition Summary: 04/04/23 11:30 Discharge Ordered Notes: Location: Home ms3 Condition: Stable ms3 Diagnosis - Lower abdominal pain, unspecified ms3 Followup: ms3 - With: Edwardo Yu MD - When: 2 - 3 days - Reason: Recheck today's complaints Discharge Instructions: - Discharge Summary Sheet ms3 - Abdominal Pain, Adult ms3 Forms: - Medication Reconciliation Form ms3 - Thank You Letter ms3 - Antibiotic Education ms3 - Prescription Opioid Use ms3 - Patient Portal Instructions ms3 - Leadership Thank You Letter ms3 Signatures: Dispatcher [employer] Millicent Oneil RN RN hb Sims, Marcus, DO DO ms3 Breneman, Mellissa, RN RN mb9
[2023-04-04 12:15] VITALS: BP 143/81; TEMP 98.1; O2SAT 98
== END ==
LOC: ER 08:33
DX: R10.32 Left lower quadrant pain (principal); R10.31 Right lower quadrant pain; Z88.1 Allergy status to other antibiotic agents; Z88.5 Allergy status to narcotic agent; Z88.7 Allergy status to serum and vaccine
CPT/HCPCS: 85025; 36415; 81003; 83690; 80053; 74177; Q9967; J7030

== ENCOUNTER → 2023-04-06 | Emergency (ER) | payer OTHER ==
[~2023-04-06] MED LIST changes: -FAMOTIDINE 20 MG/2 ML VIAL IV ONE; -KETOROLAC 30 MG/ML INJ ONE; +LIDOCAINE HCL JELLY 2% 6 ML SYRINGE TOP ONE; -NA CHLORIDE 0.9% 1,000 ML ONE; +PHENAZOPYRIDINE 100MG TAB PO ONE
[2023-04-06 10:19] LABS: Absolute Lymphocytes (CBC) 1.9 K/uL (0.7-4.9); Hematocrit 34.6 % (39.6-49.0); Lymphocytes % 18.3 % (15.3-44.8); MCV 84.9 fL (80-100); Platelets 370 thou/uL (152-406); RBC Red Blood Cell Count 4.08 M/uL (4.33-5.43)
[2023-04-06 10:37] LABS: Albumin 3.5 g/dL (3.4-5.0); Bilirubin Total 0.8 mg/dL (0.2-1.0); Potassium 4.7 mEq/L (3.5-5.1); Protein, Total 6.9 g/dL (6.4-8.2)
[2023-04-06 11:01] LABS: Urine Bacteria None Seen /HPF (<20); Urine Bilirubin NEGATIVE (Negative); Urine Blood Negative (Negative); Urine Clarity Clear (Clear); Urine Color Light-Yellow (Yellow); Urine Glucose NEGATIVE (Negative); Urine Mucus Slight /HPF (None Seen); Urine Protein NEGATIVE (Negative); Urine RBC <5 /HPF (None Seen); Urine Urobilinogen Normal (Normal)
--- NOTE | 2023-04-06 11:55 | EDPHYS ---
Physician Documentation [facility] Name: Ranulfo Chao Age: 87 yrs Sex: Male : 1935 Arrival Date: 04/06/2023 Time: 09:47 Bed 14 Private MD: Edwardo Yu V ED Physician Gonzalo Urbina HPI: 04/06 10:22 This 87 yrs old Male presents to ER via Wheelchair with complaints of Pelvic Pain. rt 10:22 Patient presents to the ED with lower abdominal pain, concerns for urinary retention. rt He was seen in the ED about 2 days ago, with an essentially negative workup. He states that his symptoms have significantly improved after having a straight catheterization be performed. He states that he is only passed a very small amount of urine since then. He states that he believes that his bladder is full that his pain has returned and worsened. Denies other acute complaints at this time, symptoms are moderate in severity, no other aggravating alleviating factors.. Historical: - Allergies: 09:50 Codeine; aa5 09:50 Influenza Virus Vaccines; aa5 09:50 Levaquin; aa5 - PMHx: 09:50 BPH; High Cholesterol; guillian barre; Hypertension; Spondylosis with radiculopathy to aa5 lumbar; - PSHx: 09:50 Tonsillectomy; aa5 - Immunization history:: Adult Immunizations unknown. - Social history:: Smoking status: Patient denies any tobacco usage or history of. - Family history:: not pertinent. ROS: 10:22 Constitutional: Negative for fever, chills, and weight loss, Cardiovascular: Negative rt for chest pain, palpitations, and edema, Respiratory: Negative for shortness of breath, cough, wheezing, and pleuritic chest pain, MS/Extremity: Negative for injury and deformity, Skin: Negative for injury, rash, and discoloration, Neuro: Negative for headache, weakness, numbness, tingling, and seizure, Psych: Negative for depression, anxiety, suicide ideation, homicidal ideation, and hallucinations, 10:22 Abdomen/GI: Positive for abdominal pain, Negative for nausea and vomiting, 10:22 : Positive for Urinary retention, small ammounts of urination, Exam: 10:22 Constitutional: This is a well developed, well nourished patient who is awake, alert, rt and in no acute distress. Head/Face: Normocephalic, atraumatic. Chest/axilla: Normal chest wall appearance and motion. Nontender with no deformity. No lesions are appreciated. Cardiovascular: Regular rate and rhythm with a normal S1 and S2. No gallops, murmurs, or rubs. Normal PMI, no JVD. No pulse deficits. Respiratory: Lungs have equal breath sounds bilaterally, clear to auscultation and percussion. No rales, rhonchi or wheezes noted. No increased work of breathing, no retractions or nasal flaring. Skin: Warm, dry with normal turgor. Normal color with no rashes, no lesions, and no evidence of cellulitis. MS/ Extremity: Pulses equal, no cyanosis. Neurovascular intact. Full, normal range of motion. Neuro: Awake and alert, GCS 15, oriented to person, place, time, and situation. Cranial nerves II-XII grossly intact. Motor strength 5/5 in all extremities. Sensory grossly intact. Cerebellar exam normal. Normal gait. Psych: Awake, alert, with orientation to person, place and time. Behavior, mood, and affect are within normal limits. 10:22 Abdomen/GI: Fullness, tenderness to the lower abdomen, no other tenderness, guarding, rebound, Vital Signs: 09:50 BP 168 / 92; Pulse 108; Resp 20 S; Temp 98.4(O); Pulse Ox 98% on R/A; aa5 09:59 Weight 73 kg; Height 5 ft. 5 in. ; mb9 10:09 BP 147 / 81; Pulse 89; Resp 18; Pulse Ox 100% on R/A; mb9 12:08 BP 138 / 74; Pulse 74; Resp 18; Pulse Ox 100% ; mb9 09:59 Body Mass Index 26.78 (73.00 kg, 165.1 cm) mb9 MDM: 09:55 Patient medically screened. rt 12:56 Differential diagnosis: urinary retention, UTI, renal dysfunction. Data reviewed: vital rt signs, nurses notes, lab test result(s). I considered the following discharge prescriptions or medication management in the emergency department Medications were administered in the Emergency Department. See MAR. Test considered but Not performed: CT: Patient had a negative CT scan a few days ago, do not believe this is indicated at this time given stable labs, improving symptoms.. Care significantly affected by the following chronic conditions: BPH. Counseling: I had a detailed discussion with the patient and/or guardian regarding the historical points, exam findings, and any diagnostic results supporting the discharge/admit diagnosis, lab results, the need for outpatient follow up, to return to the emergency department if symptoms worsen or persist or if there are any questions or concerns that arise at home. 04/06 10:09 Order name: CBC with Diff; Complete Time: 10:39 rt 04/06 10:09 Order name: CMP; Complete Time: 10:39 rt 04/06 10:09 Order name: Lipase; Complete Time: 10:39 rt 04/06 10:40 Order name: UAM; Complete Time: 11:02 rt 04/06 10:09 Order name: Mccarthy; Complete Time: 10:20 rt 04/06 11:16 Order name: Mccarthy; Complete Time: 11:24 rt Administered Medications: 10:50 CANCELLED (Other Intervention Used; gan): [id number] mg IM once rt 10:58 Drug: Ketorolac IVP 15 mg IVP once Route: IVP; Site: right forearm; mb9 11:24 Follow up: Response: No adverse reaction mb9 11:22 Drug: Phenazopyridine PO 100 mg PO once Route: PO; mb9 Disposition Summary: 04/06/23 11:55 Discharge Ordered Notes: Location: Home rt Problem: new rt Symptoms: have improved rt Condition: Stable rt Diagnosis - Urinary retention rt Followup: rt - With: Bandar Curtis MD - When: 2 - 3 days - Reason: Discharge Instructions: - Discharge Summary Sheet rt - Acute Urinary Retention, Male rt - Indwelling Urinary Catheter Insertion rt Forms: - Medication Reconciliation Form rt - Thank You Letter rt - Antibiotic Education rt - Prescription Opioid Use rt - Patient Portal Instructions rt - Leadership Thank You Letter rt Prescriptions: - Pyridium 200 mg Oral Tablet - take 1 tablet ORAL route every 8 hours for 3 days; 9 tablet; Refills: 0, rt Product Selection Permitted Signatures: Dispatcher [employer] EDMaria R Finch RN RN aa5 Porsha Gonzalez RN RN mb9 Gonzalo Urbina MD MD rt Corrections: (The following items were deleted from the chart) 10:50 10:50 Ketorolac IM 15 mg IM once ordered. rt rt
--- NOTE | 2023-04-06 11:55 | ER ---
Nurse's Notes [facility] Name: Ranulfo Chao Age: 87 yrs Sex: Male : 1935 Arrival Date: 04/06/2023 Time: 09:47 Bed 14 Private MD: Edwardo Yu V Diagnosis: Urinary retention Presentation: 04/06 09:50 Chief complaint: Chief complaint: Patient states: lower abd pain radiating to back, pt aa5 states "It's my bladder". Pt reports being seen here recently. 09:50 Onset of symptoms is unknown. aa5 09:50 Acuity: SABINE 3 aa5 09:51 Coronavirus screen: Vaccine status: Patient reports receiving the 2nd dose of the covid mb9 vaccine. Ebola Screen: No symptoms or risks identified at this time. Initial Sepsis Screen: Does the patient meet any 2 criteria? No. Patient's initial sepsis screen is negative. Does the patient have a suspected source of infection? No. Patient's initial sepsis screen is negative. Risk Assessment: Do you want to hurt yourself or someone else? Patient reports no desire to harm self or others. 09:51 Method Of Arrival: Wheelchair mb9 Historical: - Allergies: 09:50 Codeine; aa5 09:50 Influenza Virus Vaccines; aa5 09:50 Levaquin; aa5 - PMHx: 09:50 BPH; High Cholesterol; guillian barre; Hypertension; Spondylosis with radiculopathy to aa5 lumbar; - PSHx: 09:50 Tonsillectomy; aa5 - Immunization history:: Adult Immunizations unknown. - Social history:: Smoking status: Patient denies any tobacco usage or history of. - Family history:: not pertinent. Screenin:52 [facility] ED Fall Risk Assessment (Adult) History of falling in the last 3 months, mb9 including since admission No falls in past 3 months (0 pts) Confusion or Disorientation No (0 pts) Intoxicated or Sedated No (0 pts) Impaired Gait No (0 pts) Mobility Assist Device Used No (0 pt) Altered Elimination No (0 pt) Score/Fall Risk Level 0 - 2 = Low Risk Oriented to surroundings, Maintained a safe environment, Educated pt \\T\\ family on fall prevention, incl call for assistance when getting out of bed. Abuse screen: Denies threats or abuse. Nutritional screening: No deficits noted. Tuberculosis screening: No symptoms or risk factors identified. Assessment: 09:58 General: Appears in no apparent distress. Behavior is calm, cooperative. Pain: mb9 Complains of pain in pelvis Pain began gradually. Neuro: Elliott Agitation-Sedation Scale (RASS): 0 - Alert and Calm Level of Consciousness is awake, alert, obeys commands, Oriented to person, place, time, situation, Appropriate for age. Cardiovascular: Patient's skin is warm and dry. Respiratory: Airway is patent Respiratory effort is even, unlabored, Respiratory pattern is regular, symmetrical. GI: Abdomen is round non-distended, Bowel sounds present X 4 quads. Abd is soft and non tender X 4 quads. : Reports inability to void. EENT: No signs and/or symptoms were reported regarding the EENT system. Derm: Skin is pink, warm \\T\\ dry. Musculoskeletal: Range of motion: intact in all extremities. 10:43 Reassessment: Pt states, "I need you to take this lr out, it's hurting. If you don't mb9 take it out, I'm going to rip it out." This nurse removed lr and notified ERP. 12:09 Reassessment: No changes from previously documented assessment. Patient and/or family mb9 updated on plan of care and expected duration. Pain level reassessed. Patient is alert, oriented x 3, equal unlabored respirations, skin warm/dry/pink. Vital Signs: 09:50 BP 168 / 92; Pulse 108; Resp 20 S; Temp 98.4(O); Pulse Ox 98% on R/A; aa5 09:59 Weight 73 kg; Height 5 ft. 5 in. ; mb9 10:09 BP 147 / 81; Pulse 89; Resp 18; Pulse Ox 100% on R/A; mb9 12:08 BP 138 / 74; Pulse 74; Resp 18; Pulse Ox 100% ; mb9 09:59 Body Mass Index 26.78 (73.00 kg, 165.1 cm) mb9 ED Course: 09:48 Patient arrived in ED. rg4 09:49 Edwardo Yu MD is Private Physician. rg4 09:51 Gonzalo Urbina MD is Attending Physician. rt 09:51 Breneman, Mellissa, RN is Primary Nurse. mb9 09:51 Arm band placed on. mb9 09:51 Placed in gown. Bed in low position. Call light in reach. Side rails up X 1. Client mb9 placed on continuous cardiac and pulse oximetry monitoring. NIBP monitoring applied. 09:55 Triage completed. aa5 10:20 Lr cath inserted, using sterile technique, 16 Fr., by ri, balloon inflated, to mb9 gravity drainage, urine specimen collected. returned clear yellow urine. Patient tolerated well. 10:23 No provider procedures requiring assistance completed. mb9 10:23 Inserted saline lock: 20 gauge in right forearm, using aseptic technique. mb9 10:44 UAM Sent. mb9 10:44 Lr cath removed intact, balloon deflated. mb9 11:40 Lr cath inserted, using sterile technique, 14 Fr., by ri, balloon inflated, to mb9 gravity drainage, urine specimen collected. returned clear yellow urine. Patient tolerated well. 11:54 Bandar Curtis MD is Referral Physician. rt 12:09 IV discontinued, intact, bleeding controlled, No redness/swelling at site. Pressure mb9 dressing applied. Administered Medications: 10:50 CANCELLED (Other Intervention Used; gan): [id number] mg IM once rt 10:58 Drug: Ketorolac IVP 15 mg IVP once Route: IVP; Site: right forearm; mb9 11:24 Follow up: Response: No adverse reaction mb9 11:22 Drug: Phenazopyridine PO 100 mg PO once Route: PO; mb9 Medication: 09:53 VIS not applicable for this client. mb9 Output: 10:22 Urine: 600ml (Lr); Total: 600ml. mb9 Outcome: 11:55 Discharge ordered by . rt 12:09 Discharged to home ambulatory, mb9 12:09 Condition: stable 12:09 Discharge instructions given to patient, Instructed on discharge instructions, follow up and referral plans. Demonstrated understanding of instructions, follow-up care, medications, Prescriptions given X 1, 12:09 Patient left the ED. mb9 Signatures: Maria R Villareal, RN RN [id number] Jeny Meier Mary Beth, RN RN mb9 Gonzalo Urbina MD MD rt Corrections: (The following items were deleted from the chart) :55 09:50 Chief complaint: aa5 aa5 10:23 10:09 BP 147 / 81; mb9 mb9
[2023-04-06 14:12] VITALS: BP 138/74; TEMP 98.4; O2SAT 100
== END ==
LOC: ER 09:47
DX: R33.9 Retention of urine, unspecified (principal); R10.2 Pelvic and perineal pain; Z88.1 Allergy status to other antibiotic agents; Z88.5 Allergy status to narcotic agent; Z88.7 Allergy status to serum and vaccine
CPT/HCPCS: 36415; 80053; 81001; 83690; 85025

== ENCOUNTER → 2023-04-14 | Emergency (ER) | payer OTHER ==
--- NOTE | 2023-04-14 07:52 | EDPHYS ---
Physician Documentation [facility] Name: Ranulfo Chao Age: 87 yrs Sex: Male : 1935 Arrival Date: 04/14/2023 Time: 06:55 Bed 15 Private MD: ED Physician Gerardo Dodson HPI: 04/14 07:14 This 87 yrs old Male presents to ER via Unassigned with complaints of Needs Urinary ms3 Catheter Replacement. 07:14 87-year-old male with past medical history of BPH presents to the emergency department ms3 for his catheter leaking over the last 3 days. Patient's states patient tried to get into Dr. Curtis and was unable. Patient denies pain at this time. Patient denies any alleviating or inciting factors. 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 - Social history:: Smoking status: unknown. ROS: 07:14 Constitutional: Negative for fever, and chills. Neck: Negative for injury, pain, and ms3 swelling, Cardiovascular: Negative for chest pain, and palpitations. Respiratory: Negative for shortness of breath, cough, wheezing, and pleuritic chest pain, Abdomen/GI: Negative for abdominal pain, nausea, vomiting, diarrhea, and constipation, 07:14 : Positive for Urinary catheter leaking, Exam: 07:14 Constitutional: This is a well developed, well nourished patient who is awake, alert, ms3 and in no acute distress. Head/Face: Normocephalic, atraumatic. Chest/axilla: Normal chest wall appearance and motion. Nontender with no deformity. Cardiovascular: Regular rate and rhythm with a normal S1 and S2. No gallops, murmurs, or rubs. Normal PMI, no JVD. No pulse deficits. Respiratory: Lungs have equal breath sounds bilaterally, clear to auscultation and percussion. No rales, rhonchi or wheezes noted. No increased work of breathing, no retractions or nasal flaring. Abdomen/GI: Soft, non-tender, with normal bowel sounds. No distension or tympany. No guarding or rebound. No evidence of tenderness throughout. Vital Signs: 07:15 BP 134 / 88; Pulse 119; Resp 17; Pulse Ox 95% ; Weight 72.57 kg; Height 5 ft. 8 in. ; ap3 07:31 BP 128 / 82; Pulse 98; Resp 16; Pulse Ox 96% on R/A; ko1 07:15 Body Mass Index 24.33 (72.57 kg, 172.72 cm) ap3 MDM: 07:13 Patient medically screened. ms3 07:14 Differential diagnosis: Mccarthy catheter problem. ms3 07:52 Data reviewed: vital signs, nurses notes, and as a result, I will discharge patient. ms3 Historians other than the Patient: Spouse/Significant Other: Patient's . Counseling: I had a detailed discussion with the patient and/or guardian regarding the historical points, exam findings, and any diagnostic results supporting the discharge/admit diagnosis, the need for outpatient follow up, to return to the emergency department if symptoms worsen or persist or if there are any questions or concerns that arise at home. Special discussion: I discussed with the patient/guardian in detail that at this point there is no indication for admission to the hospital. It is understood, however, that if the symptoms persist or worsen the patient needs to return immediately for re-evaluation. ED course: On evaluation patient's leg bag leaking. Urine reservoir replaced. Patient to follow-up Dr. Curtis as scheduled. All questions were answered. Return precautions discussed include worsening symptoms, or any other concerns.. 04/14 07:14 Order name: Shari; Complete Time: 07:26 ms3 Administered Medications: No medications were administered Disposition Summary: 04/14/23 07:51 Discharge Ordered Notes: Location: Home ms3 Condition: Stable ms3 Diagnosis - Mccarthy catheter malfunction ms3 Followup: ms3 - With: Bandar Curtis MD - When: 2 - 3 days - Reason: Recheck today's complaints Discharge Instructions: - Discharge Summary Sheet ms3 - Indwelling Urinary Catheter Care, Adult ms3 Forms: - Medication Reconciliation Form ms3 - Thank You Letter ms3 - Antibiotic Education ms3 - Prescription Opioid Use ms3 - Patient Portal Instructions ms3 - Leadership Thank You Letter ms3 Signatures: Shantell Lott, RN RN ap3 Gerardo Dodson DO DO ms3
--- NOTE | 2023-04-14 07:52 | ER ---
Nurse's Notes [facility] Name: Ranulfo Chao Age: 87 yrs Sex: Male : 1935 Arrival Date: 04/14/2023 Time: 06:55 Bed 15 Private MD: Diagnosis: Mccarthy catheter malfunction Presentation: 04/14 07:15 Chief complaint: Patient states: he has had a catheter for approx one week, and has ap3 attempted to see his urologist. the patient now reports the catheter is leaking and is requesting a new one at this time. Coronavirus screen: At this time, the client does not indicate any symptoms associated with coronavirus-19. Ebola Screen: No symptoms or risks identified at this time. Initial Sepsis Screen: Does the patient meet any 2 criteria? No. Patient's initial sepsis screen is negative. Does the patient have a suspected source of infection? Yes: Other: long-placed catheter. Risk Assessment: Do you want to hurt yourself or someone else? Patient reports no desire to harm self or others. Onset of symptoms is unknown. 07:15 Method Of Arrival: Wheelchair ap3 07:15 Acuity: SABINE 4 ap3 Triage Assessment: 07:17 General: Appears in no apparent distress. Behavior is calm, cooperative, appropriate ap3 for age. Pain: Denies pain. EENT: Reports chronically hard of hearing. Neuro: Level of Consciousness is awake, alert, obeys commands, Oriented to person, place, time, situation. Cardiovascular: Patient's skin is warm and dry. Respiratory: Airway is patent Respiratory effort is even, unlabored, Respiratory pattern is regular, symmetrical. : Mccarthy in place to gravity drainage. 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 - Social history:: Smoking status: unknown. Screenin:18 [facility] ED Fall Risk Assessment (Adult). Abuse screen: Denies threats or abuse. ap3 Nutritional screening: No deficits noted. Tuberculosis screening: No symptoms or risk factors identified. Assessment: 07:15 General: Appears in no apparent distress. Pain: Denies pain. : Mccarthy in place to ko1 gravity drainage. Vital Signs: 07:15 BP 134 / 88; Pulse 119; Resp 17; Pulse Ox 95% ; Weight 72.57 kg; Height 5 ft. 8 in. ; ap3 07:31 BP 128 / 82; Pulse 98; Resp 16; Pulse Ox 96% on R/A; ko1 07:15 Body Mass Index 24.33 (72.57 kg, 172.72 cm) ap3 ED Course: 07:01 Patient arrived in ED. gm2 07:05 Gerardo Dodson DO is Attending Physician. ms3 07:06 Jenna Cordoba, RN is Primary Nurse. ko1 07:17 Triage completed. ap3 07:18 Arm band placed on left wrist. ap3 07:18 Patient has correct armband on for positive identification. Bed in low position. Call ap3 light in reach. Side rails up X 1. Adult w/ patient. Pulse ox on. NIBP on. 07:31 Provided Education on: catheter care. ko1 07:31 No provider procedures requiring assistance completed. Patient did not have IV access ko1 during this emergency room visit. 07:51 Bandar Curtis MD is Referral Physician. ms3 Administered Medications: No medications were administered Medication: 07:31 VIS not applicable for this client. ko1 Outcome: 07:51 Discharge ordered by . ms3 07:58 Discharged to home via wheelchair, with family, ko1 07:58 Condition: stable 07:58 Discharge instructions given to patient, family, Instructed on discharge instructions, follow up and referral plans. Demonstrated understanding of instructions, follow-up care, catheter care 07:59 Patient left the ED. ko1 Signatures: Shantell Lott RN RN ap3 Gerardo Dodson DO DO ms3 Jenna Cordoba, DAVIAN RN ko1 Maris Rock gm2
[2023-04-14 20:47] VITALS: BP 128/82; O2SAT 96
== END ==
LOC: ER 06:55
PROC: 0T2BX0Z Change Drainage Device in Bladder, External Approach (ICD-10-PCS; principal; 2023-04-14)
DX: T83.038A Leakage of other urinary catheter, initial encounter (principal)

== ENCOUNTER → 2023-04-15 | Emergency (ER) | payer OTHER ==
[2011-09-16 12:34] VITALS: BP 104/61
--- NOTE | 2023-04-15 14:41 | EDPHYS ---
Physician Documentation [facility] Name: Ranulfo Chao Age: 87 yrs Sex: Male : 1935 Arrival Date: 04/15/2023 Time: 11:43 Bed 17 Private MD: Edwardo Yu V ED Physician Dennis Tovar HPI: 04/15 18:04 This 87 yrs old Male presents to ER via Wheelchair with complaints of Fall Injury, kdr Problem With Urinary Catheter. 18:04 Patient states that he rolled out of bed this morning and fell on his stomach possibly kdr dislodging his Lr catheter. Patient complains of pain in his pubic and pelvic area. Patient also is on Eliquis. He has been catheterized for the past 2 weeks after he was unable to pass urine. Currently states the pain is 10 out of 10.. Onset: The symptoms/episode began/occurred suddenly, just prior to arrival. Severity of symptoms: At their worst the symptoms were moderate severe just prior to arrival, in the emergency department the symptoms have improved moderately. The patient has not experienced similar symptoms in the past. 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 - Social history:: Smoking status: unknown. ROS: 18:04 Constitutional: Negative for fever, chills, and weight loss, Eyes: Negative for injury, kdr pain, redness, and discharge, Neck: Negative for injury, pain, and swelling, Cardiovascular: Negative for chest pain, palpitations, and edema, Respiratory: Negative for shortness of breath, cough, wheezing, and pleuritic chest pain, Abdomen/GI: Negative for abdominal pain, nausea, vomiting, diarrhea, and constipation, Back: Negative for injury and pain, MS/Extremity: Negative for injury and deformity, Skin: Negative for injury, rash, and discoloration, Neuro: Negative for headache, weakness, numbness, tingling, and seizure activity. Psych: Negative for depression, anxiety, suicide ideation, homicidal ideation, and hallucinations, Allergy/Immunology: Negative for hives, rash, and allergies, Endocrine: Negative for neck swelling, polydipsia, polyuria, polyphagia, and marked weight changes, Hematologic/Lymphatic: Negative for swollen nodes, abnormal bleeding, and unusual bruising, 18:04 : Positive for penile pain, Pelvic pain, Exam: 18:04 Constitutional: This is a well developed, well nourished patient who is awake, alert, kdr and in no acute distress. Head/Face: Normocephalic, atraumatic. 18:04 : Male external genitalia: normal, Bladder: is normal, a lr is noted, to gravity drainage, urine is , Vital Signs: 11:50 BP 100 / 55; Pulse 87; Resp 19; Temp 97.5; Pulse Ox 95% ; Weight 72.57 kg; Height 5 ft. ap3 6 in. ; Pain 10/10; 12:45 BP 102 / 61; Pulse 80; Resp 18; Pulse Ox 94% on R/A; me1 14:30 BP 128 / 68; Pulse 74; Resp 16; Pulse Ox 95% on R/A; me1 11:50 Body Mass Index 25.82 (72.57 kg, 167.64 cm) ap3 11:50 Pain Scale: Adult ap3 MDM: 14:41 Patient medically screened. kdr 18:04 Data reviewed: vital signs, nurses notes. ED course: After the Lr was changed out, kdr the patient felt much better. He was discharged in good condition happy with the care provided plan for discharge and follow-up. 04/15 12:16 Order name: Lr; Complete Time: 12:44 kdr 04/15 12:16 Order name: Lr Leg Bag; Complete Time: 12:44 kdr Administered Medications: No medications were administered Disposition Summary: 04/15/23 14:41 Discharge Ordered Notes: Location: Home kdr Problem: new kdr Symptoms: have improved kdr Condition: Stable kdr Diagnosis - Mechanical complication of urinary (indwelling) catheter kdr Followup: kdr - With: Edwardo Yu MD - When: 2 - 3 days - Reason: If symptoms return, Further diagnostic work-up, Recheck today's complaints, Continuance of care, Re-evaluation by your physician Followup: kdr - With: Bandar Curtis MD - When: 2 - 3 days - Reason: If symptoms return, Further diagnostic work-up, Recheck today's complaints, Continuance of care, Re-evaluation by your physician Discharge Instructions: - Discharge Summary Sheet kdr - Indwelling Urinary Catheter Care, Adult, [id number] kdr Forms: - Medication Reconciliation Form kdr - Thank You Letter kdr - Patient Portal Instructions kdr - Leadership Thank You Letter kdr Signatures: Dennis Tovar MD MD kdr Shantell Lott RN RN ap3 Jessica Martin RN RN me1
--- NOTE | 2023-04-15 14:41 | ER ---
Nurse's Notes [facility] Name: Ranulfo Chao Age: 87 yrs Sex: Male : 1935 Arrival Date: 04/15/2023 Time: 11:43 Bed 17 Private MD: Edwardo Yu V Diagnosis: Mechanical complication of urinary (indwelling) catheter Presentation: 04/15 11:50 Chief complaint: Patient states: he rolled out of bed this morning and fell on his ap3 stomach, and denies hitting his head. patient states he is on Eliquis. patient is complaining of pain with his urinary catheter since the fall. patient states pain is currently a 10/10 on the pain scale. Coronavirus screen: At this time, the client does not indicate any symptoms associated with coronavirus-19. Ebola Screen: No symptoms or risks identified at this time. Initial Sepsis Screen: Does the patient meet any 2 criteria? No. Patient's initial sepsis screen is negative. Does the patient have a suspected source of infection? No. Patient's initial sepsis screen is negative. Risk Assessment: Do you want to hurt yourself or someone else? Patient reports no desire to harm self or others. Onset of symptoms was April 15, 2023. 11:50 Method Of Arrival: Wheelchair ap3 11:50 Acuity: SABINE 3 ap3 Triage Assessment: 11:52 General: Appears uncomfortable, Behavior is calm, cooperative, appropriate for age. ap3 Pain: Complains of pain in groin Pain currently is 10 out of 10 on a pain scale. EENT: patient is chronically hard of hearing. Neuro: Level of Consciousness is awake, alert, obeys commands, Oriented to person, place, time, situation, Appropriate for age. Cardiovascular: Patient's skin is warm and dry. Respiratory: Airway is patent Respiratory effort is even, unlabored, Respiratory pattern is regular, symmetrical. : Mccarthy in place to gravity drainage Reports pain. 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 - Social history:: Smoking status: unknown. Screenin:53 Abuse screen: Denies threats or abuse. Nutritional screening: No deficits noted. ap3 Tuberculosis screening: No symptoms or risk factors identified. 12:50 [facility] ED Fall Risk Assessment (Adult) History of falling in the last 3 months, me1 including since admission Yes- single mechanical fall (1 pt). Assessment: 12:50 General: Appears uncomfortable, well groomed, well developed, well nourished, Behavior me1 is calm, cooperative, appropriate for age, Reports he rolled out of bed this morning and fell on his stomach, and denies hitting his head. patient states he is on Eliquis. patient is complaining of pain with his urinary catheter since the fall. patient states pain is currently a 10/10 on the pain scale. Pain: Complains of pain in pelvis and groin Pain does not radiate. Pain currently is 10 out of 10 on a pain scale. Quality of pain is described as stabbing, Pain began suddenly, Is continuous. Neuro: Level of Consciousness is awake, alert, obeys commands, Oriented to person, place, time, situation, Appropriate for age. Cardiovascular: Capillary refill < 3 seconds Patient's skin is warm and dry. Respiratory: Airway is patent Trachea midline Respiratory effort is even, unlabored, Respiratory pattern is regular, symmetrical. : Mccarthy in place to gravity drainage with reddish-orange urine draining to bedside drainage bag. States he is taking "azo" and that his urine has been that color prior to fall/pain to bladder this morning. Vital Signs: 11:50 BP 100 / 55; Pulse 87; Resp 19; Temp 97.5; Pulse Ox 95% ; Weight 72.57 kg; Height 5 ft. ap3 6 in. ; Pain 10/10; 12:45 BP 102 / 61; Pulse 80; Resp 18; Pulse Ox 94% on R/A; me1 14:30 BP 128 / 68; Pulse 74; Resp 16; Pulse Ox 95% on R/A; me1 11:50 Body Mass Index 25.82 (72.57 kg, 167.64 cm) ap3 11:50 Pain Scale: Adult ap3 ED Course: 11:46 Patient arrived in ED. mr 11:46 Edwardo Yu MD is Private Physician. mr 11:52 Triage completed. ap3 11:53 Arm band placed on left wrist. ap3 11:57 Dennis Tovar MD is Attending Physician. kdr 12:20 Jessica Martin, RN is Primary Nurse. me1 12:50 Patient has correct armband on for positive identification. Bed in low position. Call me1 light in reach. Side rails up X2. Provided Education on: POC. Verbalized understanding. . 12:50 No provider procedures requiring assistance completed. Patient did not have IV access me1 during this emergency room visit. 14:28 Edwardo Yu MD is Referral Physician. kdr 14:29 Bandar Curtis MD is Referral Physician. kdr Administered Medications: No medications were administered Medication: 12:50 VIS not applicable for this client. me1 Outcome: 14:41 Discharge ordered by MD. kdr 14:52 Discharged to home via wheelchair, with family, me1 14:52 Condition: stable 14:52 Discharge instructions given to patient, family, Instructed on discharge instructions, follow up and referral plans. Demonstrated understanding of instructions, follow-up care, 14:52 Patient left the ED. me1 Signatures: Dennis Tovar MD MD kdr Gilliam, Porsha, Reg Reg MianhortenciaShantell, RN RN ap3 Jessica Martin, RN RN me1 Corrections: (The following items were deleted from the chart) 12:45 11:50 Chief complaint: Patient states: he rolled out of bed this morning and fell on me1 his stomach, and denies hitting his head. patient states he is on Eliquis. patient is complaining of pain with his urinary catheter since the fall. patient states pain is currently a 10/10 on the pain scale ap3
== END ==
LOC: ER 11:43
DX: T83.098A Other mechanical complication of other urinary catheter, initial encounter (principal); Z88.1 Allergy status to other antibiotic agents; Z88.5 Allergy status to narcotic agent; Z88.7 Allergy status to serum and vaccine; Z28.310 Unvaccinated for COVID-19

== ENCOUNTER → 2023-04-25 | Emergency (ER) | payer OTHER ==
[~2023-04-25] MED LIST changes: +FLUCONAZOLE 100 MG TAB ONE; +HYDROCODONE/APAP 10/325 TAB ONE; -LIDOCAINE HCL JELLY 2% 6 ML SYRINGE TOP ONE; +LIDOCAINE VISCOUS 2% 10ML ORAL SOLN ONE; +ONDANSETRON 4 MG (ODT) TAB ONE
--- NOTE | 2023-04-25 14:03 | EDPHYS ---
Physician Documentation [facility] Name: Ranulfo Chao Age: 87 yrs Sex: Male : 1935 Arrival Date: 04/25/2023 Time: 11:31 Bed 11 Private MD: BETHANY Physician Viral Kellogg HPI: 04/25 13:55 This 87 yrs old Male presents to ER via Wheelchair with complaints of Penile walter Pain. 13:55 The patient presents with a Mccarthy catheter problem, tenderness. Onset: The walter symptoms/episode began/occurred 3 day(s) ago. Modifying factors: The symptoms are alleviated by nothing, the symptoms are aggravated by nothing. Associated signs and symptoms: The patient has no apparent associated signs or symptoms. Severity of symptoms: At their worst the symptoms were moderate, in the emergency department the symptoms are unchanged. Historical: - Allergies: 12:04 Codeine; aa5 12:04 Influenza Virus Vaccines; aa5 12:04 Levaquin; aa5 - PMHx: 12:04 BPH; guillian barre; High Cholesterol; Hypertension; Spondylosis with radiculopathy to aa5 lumbar; - PSHx: 12:04 Tonsillectomy; spinal sx (Tonsillectomy); aa5 ROS: 13:57 Constitutional: Negative for fever, chills, and weight loss, Eyes: Negative for injury, walter pain, redness, and discharge, ENT: Negative for injury, pain, and discharge, Neck: Negative for injury, pain, and swelling, Cardiovascular: Negative for chest pain, palpitations, and edema, Respiratory: Negative for shortness of breath, cough, wheezing, and pleuritic chest pain, Abdomen/GI: Negative for abdominal pain, nausea, vomiting, diarrhea, and constipation, Back: Negative for injury and pain, MS/Extremity: Negative for injury and deformity, Neuro: Negative for headache, weakness, numbness, tingling, and seizure, Psych: Negative for depression, anxiety, suicide ideation, homicidal ideation, and hallucinations, Allergy/Immunology: Negative for hives, rash, and allergies, Endocrine: Negative for neck swelling, polydipsia, polyuria, polyphagia, and marked weight changes, Hematologic/Lymphatic: Negative for swollen nodes, abnormal bleeding, and unusual bruising, 13:57 : Positive for urinary symptoms, penile pain, Exam: 13:57 Constitutional: This is a well developed, well nourished patient who is awake, alert, walter and in no acute distress. Head/Face: Normocephalic, atraumatic. Eyes: Pupils equal round and reactive to light, extra-ocular motions intact. Lids and lashes normal. Conjunctiva and sclera are non-icteric and not injected. Cornea within normal limits. Periorbital areas with no swelling, redness, or edema. ENT: Nares patent. No nasal discharge, no septal abnormalities noted. Tympanic membranes are normal and external auditory canals are clear. Oropharynx with no redness, swelling, or masses, exudates, or evidence of obstruction, uvula midline. Mucous membranes moist. Neck: Trachea midline, no thyromegaly or masses palpated, and no cervical lymphadenopathy. Supple, full range of motion without nuchal rigidity, or vertebral point tenderness. No Meningismus. Chest/axilla: Normal chest wall appearance and motion. Nontender with no deformity. No lesions are appreciated. Cardiovascular: Regular rate and rhythm with a normal S1 and S2. No gallops, murmurs, or rubs. Normal PMI, no JVD. No pulse deficits. Respiratory: Lungs have equal breath sounds bilaterally, clear to auscultation and percussion. No rales, rhonchi or wheezes noted. No increased work of breathing, no retractions or nasal flaring. Abdomen/GI: Soft, non-tender, with normal bowel sounds. No distension or tympany. No guarding or rebound. No evidence of tenderness throughout. Back: No spinal tenderness. No costovertebral tenderness. Full range of motion. MS/ Extremity: Pulses equal, no cyanosis. Neurovascular intact. Full, normal range of motion. Neuro: Awake and alert, GCS 15, oriented to person, place, time, and situation. Cranial nerves II-XII grossly intact. Motor strength 5/5 in all extremities. Sensory grossly intact. Cerebellar exam normal. Normal gait. Psych: Awake, alert, with orientation to person, place and time. Behavior, mood, and affect are within normal limits. 13:57 : CVA tenderness, is absent, Male external genitalia: erythema, tenderness, of the head of penis and meatus is noted, Vital Signs: 11:59 BP 124 / 74; Pulse 85; Resp 16 S; Temp 97.8(TE); Pulse Ox 96% on R/A; Weight 72.57 kg aa5 (R); Height 5 ft. 6 in. (R); 14:00 BP 136 / 88; Pulse 80; Resp 16 S; Temp 97.8(TE); Pulse Ox 97% on R/A; aa5 11:59 Body Mass Index 25.82 (72.57 kg, 167.64 cm) aa5 MDM: 11:44 Patient medically screened. rn 14:03 Differential diagnosis: nonspecific abdominal pain, UTI, urinary retention, Mccarthy walter catheter problem, prostatitis, urethritis. Data reviewed: vital signs, nurses notes, lab test result(s), urinalysis. Consideration of Admission/Observation Escalation of care including admission/observation considered. I considered the following discharge prescriptions or medication management in the emergency department Medications were administered in the Emergency Department. See MAR. Test considered but Not performed: Labs: NO CBC, NO COMP MET. Historians other than the Patient: Family Member: VERY WELL INFORMED. Care significantly affected by the following chronic conditions: Hypertension, Obesity. Counseling: I had a detailed discussion with the patient and/or guardian regarding the historical points, exam findings, and any diagnostic results supporting the discharge/admit diagnosis, lab results, the need for outpatient follow up, for definitive care, a family practitioner, a urologist. 04/25 13:55 Order name: Shari; Complete Time: 15:10 walter Administered Medications: 12:25 Drug: [place] PO 10 mg-325 mg 1 tabs PO once Route: PO; aa5 15:00 Follow up: Response: No adverse reaction aa5 12:25 Drug: Phenazopyridine PO 200 mg PO once Route: PO; aa5 15:00 Follow up: Response: No adverse reaction aa5 12:25 Drug: Ondansetron Oral Disintegrating Tablet Oral Disintegrating Tablet 4 mg PO once aa5 Route: PO; 15:00 Follow up: Response: No adverse reaction aa5 12:25 Drug: Viscous Lidocaine Mucous Membrane Liquid (4 %) 5 ml Mucous Membrane once Route: aa5 Mucous Membrane; 15:09 Drug: Fluconazole PO 200 mg PO once Route: PO; aa5 15:30 Follow up: Response: No adverse reaction aa5 Disposition Summary: 04/25/23 14:02 Discharge Ordered Notes: Location: Home walter Problem: new walter Symptoms: have improved walter Condition: Stable [facility] Diagnosis - Candidal balanitis [facility] - Candidiasis of other urogenital sites [facility] - Mechanical complication of urinary (indwelling) catheter [facility] Followup: [facility] - With: Bandar Curtis MD - When: 2 - 3 days - Reason: Recheck today's complaints, Continuance of care, Re-evaluation by your physician Followup: [facility] - With: Private Physician - When: 2 - 3 days - Reason: Recheck today's complaints, Re-evaluation by your physician Discharge Instructions: - Discharge Summary Sheet walter - Balanitis walter - Indwelling Urinary Catheter Care, Adult walter - Vaginal Yeast Infection, Adult walter - Urinary Tract Infection, Adult, [id number] walter - Indwelling Urinary Catheter Care, Adult, [id number] [facility] - Skin Yeast Infection [facility] Forms: - Medication Reconciliation Form [facility] - Thank You Letter [facility] - Antibiotic Education [facility] - Prescription Opioid Use [facility] - Patient Portal Instructions [facility] - Leadership Thank You Letter [facility] Prescriptions: - Diflucan 150 mg Oral tablet - take 1 tablet ORAL route one time for 1 day 1 TAB PO WEEKLY X 4 WEEKS; 4 walter tablet; Refills: 0, Product Selection Permitted - Pyridium 200 mg Oral Tablet - take 1 tablet ORAL route every 8 hours for 3 days; 9 tablet; Refills: 0, [facility] Product Selection Permitted - Nystatin-Triamcinolone 100,000-0.1 unit/g-% Topical cream - apply 1 application TOPICAL route 2-3 times daily; 45 gram; Refills: 0, Product [facility] Selection Permitted - Tramadol 50 mg Oral tablet - take 1 tablet ORAL route every 6 hours as needed; 24 tablet; Refills: 0, [facility] Product Selection Permitted - Bactrim DS 800-160 mg Oral Tablet - take 1 tablet ORAL route every 12 hours for 7 days; 14 tablet; Refills: 0, [facility] Product Selection Permitted Signatures: Viral Kellogg MD MD cha Nieto, Roman, MD MD rn Calderon, Audri RN RN aa5
--- NOTE | 2023-04-25 14:03 | ER ---
Nurse's Notes [facility] Name: Ranulfo Chao Age: 87 yrs Sex: Male : 1935 Arrival Date: 04/25/2023 Time: 11:31 Bed 11 Private MD: Diagnosis: Candidal balanitis;Candidiasis of other urogenital sites;Mechanical complication of urinary (indwelling) catheter Presentation: 04/25 11:59 Chief complaint: Pt's states "He has prostate problem and he need surgery but we aa5 are waiting on the heart doctor to clear him for surgery, he has a lr catheter and his pubic area has been hurting but now he is having penis pain". 11:59 Coronavirus screen: At this time, the client does not indicate any symptoms associated aa5 with coronavirus-19. Ebola Screen: Patient denies travel to an Ebola-affected area in the 21 days before illness onset. Initial Sepsis Screen: Does the patient meet any 2 criteria? No. Patient's initial sepsis screen is negative. Does the patient have a suspected source of infection? No. Patient's initial sepsis screen is negative. Risk Assessment: Do you want to hurt yourself or someone else? Patient reports no desire to harm self or others. Onset of symptoms was April 2023. 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 Abuse screen: Denies threats or abuse. Nutritional screening: No deficits noted. Tuberculosis screening: No symptoms or risk factors identified. Assessment: 12:05 General: Appears uncomfortable, Behavior is calm, cooperative. Pain: Complains of pain aa5 in head of penis. Neuro: Level of Consciousness is awake, alert, obeys commands, Oriented to person, place, time, situation. Cardiovascular: Patient's skin is warm and dry. Respiratory: Airway is patent Respiratory effort is even, unlabored, Respiratory pattern is regular, symmetrical. GI: No signs and/or symptoms were reported involving the gastrointestinal system. : Lr in place to gravity drainage red rash noted to left groin, pt's reports yeast infection and has been applying nystatin powder. EENT: No signs and/or symptoms were reported regarding the EENT system. Derm: Skin is pink, warm \\T\\ dry. Musculoskeletal: Range of motion: intact in all extremities. 14:00 Reassessment: Patient is alert, oriented x 3, equal unlabored respirations, skin aa5 warm/dry/pink. 14:00 Reassessment: Patient states feeling better. Patient states symptoms have improved. aa5 pain has decreased . 15:00 Reassessment: Patient is alert, oriented x 3, equal unlabored respirations, skin aa5 warm/dry/pink. Vital Signs: 11:59 BP 124 / 74; Pulse 85; Resp 16 S; Temp 97.8(TE); Pulse Ox 96% on R/A; Weight 72.57 kg aa5 (R); Height 5 ft. 6 in. (R); 14:00 BP 136 / 88; Pulse 80; Resp 16 S; Temp 97.8(TE); Pulse Ox 97% on R/A; aa5 11:59 Body Mass Index 25.82 (72.57 kg, 167.64 cm) aa5 ED Course: 11:33 Patient arrived in ED. im 11:44 Earl Cota MD is Attending Physician. rn 11:45 Attending Physician role handed off by Earl Cota MD walter 11:45 Viral Kellogg MD is Attending Physician. walter 11:59 Arm band placed on. aa5 12:00 Patient has correct armband on for positive identification. Bed in low position. Call aa5 light in reach. Side rails up X2. Adult w/ patient. Door closed. Warm blanket given. 12:04 Triage completed. aa5 12:31 Maria R Villareal, RN is Primary Nurse. aa5 14:01 Bandar Curtis MD is Referral Physician. [facility] 15:00 Lr cath removed intact, balloon deflated, 14Fr coud. aa5 15:10 No provider procedures requiring assistance completed. Patient did not have IV access aa5 during this emergency room visit. 15:10 Lr cath inserted, using sterile technique, 16 Fr., by nd, balloon inflated, to aa5 gravity drainage, other Coude catheter, MD requested 16 Fr to be inserted. returned clear yellow urine. Patient tolerated well. Administered Medications: 12:25 Drug: [place] PO 10 mg-325 mg 1 tabs PO once Route: PO; aa5 15:00 Follow up: Response: No adverse reaction aa5 12:25 Drug: Phenazopyridine PO 200 mg PO once Route: PO; aa5 15:00 Follow up: Response: No adverse reaction aa5 12:25 Drug: Ondansetron Oral Disintegrating Tablet Oral Disintegrating Tablet 4 mg PO once aa5 Route: PO; 15:00 Follow up: Response: No adverse reaction aa5 12:25 Drug: Viscous Lidocaine Mucous Membrane Liquid (4 %) 5 ml Mucous Membrane once Route: aa5 Mucous Membrane; 15:09 Drug: Fluconazole PO 200 mg PO once Route: PO; aa5 15:30 Follow up: Response: No adverse reaction aa5 Medication: 15:09 VIS not applicable for this client. aa5 Outcome: 14:02 Discharge ordered by . [facility] 15:54 Discharged to home via wheelchair, with family, 15:54 Condition: good 15:54 Discharge instructions given to patient, family, Instructed on discharge instructions, follow up and referral plans. medication usage, Demonstrated understanding of instructions, follow-up care, medications, Prescriptions given X 4, 15:54 Patient left the ED. Signatures: Viral Kellogg MD MD cha Williams, Irene RN DAVIAN Earl Cota MD MD rn Calderon, Audri, DAVIAN MARCELO aa5 Shilpa Barone Corrections: (The following items were deleted from the chart) 20:13 14:00 Lr cath removed intact, balloon deflated, 14Fr coud aa5 aa5 20:13 14:00 Lr cath inserted, using sterile technique, 16 Fr., by me, balloon inflated, to aa5 gravity drainage, other Coude catheter, requested 16 Fr to be inserted. returned clear yellow urine. Patient tolerated well. aa5
[2023-04-25 16:15] VITALS: BP 124/74; TEMP 97.8; O2SAT 96
== END ==
LOC: ER 11:31
DX: B37.42 Candidal balanitis (principal); B37.49 Other urogenital candidiasis; T83.098A Other mechanical complication of other urinary catheter, initial encounter; Z88.1 Allergy status to other antibiotic agents; Z88.5 Allergy status to narcotic agent; Z88.7 Allergy status to serum and vaccine
CPT/HCPCS: 51702; 99284; Q0162

== ENCOUNTER 2023-04-30 16:33 | Inpatient (IN) | payer OTHER ==
[2023-04-30 17:25] LABS: Hematocrit 31.2 % (39.6-49.0); MCV 84.7 fL (80-100); RBC Red Blood Cell Count 3.69 M/uL (4.33-5.43)
[2023-04-30 17:26] LABS: Lymphocytes % 22.1 % (15.3-44.8); MPV 7.3 fL (7.6-11.3); Platelets 453 thou/uL (152-406)
[2023-04-30 17:43] LABS: Albumin 3.7 g/dL (3.4-5.0); Bilirubin Total 0.5 mg/dL (0.2-1.0); Protein, Total 7.8 g/dL (6.4-8.2)
[2023-04-30] MEDS ORDERED: SOD POLYSTYREN SUL 15 GM/60 ML UCUP ONE (18:02)
[2023-04-30] MEDS ORDERED: INSULIN REGULAR (HUMAN) 100 UNIT/ML ONE (18:03)
[2023-04-30] MEDS ORDERED: NA CHLORIDE 0.9% 500 ML ONE (18:03)
--- NOTE | 2023-04-30 18:03 | EDPHYS ---
Physician Documentation [facility] Name: Ranulfo Chao Age: 87 yrs Sex: Male : 1935 Arrival Date: 04/30/2023 Time: 16:33 Bed 6 Private MD: ED Physician Poncho Singh HPI: 04/30 18:27 This 87 yrs old Male presents to ER via Wheelchair with complaints of Potassium problem.kb 18:27 Patient is a 87-year-old male who went for preop labs today and was informed by Dr. pooja Curtis that he needed to come to the ER for high potassium. Patient denies any symptoms.. 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 - Social history:: Smoking status: Patient denies any tobacco usage or history of. ROS: 18:28 Constitutional: Negative for fever, chills, and weight loss, kb 18:28 All other systems are negative, Exam: 18:28 Constitutional: This is a well developed, well nourished patient who is awake, alert, kb and in no acute distress. Head/Face: Normocephalic, atraumatic. ENT: Moist Mucous membranes Cardiovascular: Regular rate Respiratory: Respirations even and unlabored. No increased work of breathing. Talking in full sentences Abdomen/GI: Soft, non-tender. No distention Skin: Warm, dry with normal turgor. Normal color. MS/ Extremity: Pulses equal, no cyanosis. Neurovascular intact. Full, normal range of motion. Neuro: Awake and alert. Moves all extremities. Vital Signs: 16:49 BP 88 / 60; Pulse 81; Resp 18; Temp 97.9; Pulse Ox 92% ; Weight 70.31 kg; Height 5 ft. db 6 in. ; 18:05 BP 121 / 71; Pulse 72; Resp 18; Pulse Ox 95% ; nj1 19:00 BP 126 / 63; Pulse 76; Resp 16; Pulse Ox 96% on 2 lpm NC; jb4 20:00 BP 102 / 75; Pulse 84; Resp 18; Pulse Ox 93% on 2 lpm NC; jb4 22:00 BP 124 / 91; Pulse 73; Resp 16; Temp 97.2(TE); Pulse Ox 94% on 2 lpm NC; jb4 16:49 Body Mass Index 25.02 (70.31 kg, 167.64 cm) db MDM: 16:48 Patient medically screened. kb 18:28 Differential Diagnosis Hyperkalemia, acute renal failure, abnormal EKG. Data reviewed: kb vital signs, nurses notes. Consideration of Admission/Observation Patient was admitted/placed on observation. Escalation of care including admission/observation considered. Management of patient was discussed with the following: Primary Care Provider: Dr. Yu accepts patient for admission. Historians other than the Patient: Spouse/Significant Other: . Counseling: I had a detailed discussion with the patient and/or guardian regarding the historical points, exam findings, and any diagnostic results supporting the discharge/admit diagnosis, lab results, the need for further work-up and treatment in the hospital. 04/30 17:05 Order name: CBC with Diff; Complete Time: 17:28 kb 04/30 17:05 Order name: CMP; Complete Time: 17:44 kb 04/30 18:36 Order name: Urinalysis w/ reflexes kb 04/30 19:03 Order name: Glucose, Ancillary Testing; Complete Time: 19:03 EDMS 04/30 17:05 Order name: EKG; Complete Time: 17:05 kb 04/30 17:05 Order name: IV Start; Complete Time: 17:45 kb 04/30 17:05 Order name: EKG - Nurse/Tech; Complete Time: 17:45 kb 04/30 17:57 Order name: Vital Signs; Complete Time: 18:05 kb 04/30 18:36 Order name: Blood Glucose Level; Complete Time: 18:51 kb Administered Medications: 18:15 Drug: Kayexalate PO 30 grams PO once Route: PO; nj1 18:15 Drug: Insulin Regular Human IVP 5 units IVP once {Co-Signature: ko1 (Jenna Cordoba nj1 RN).} Route: IVP; Site: right antecubital; 18:15 Drug: NS 0.9% IV 500 ml IV at bolus once Route: IV; Rate: bolus; Site: right nj1 antecubital; 18:15 Drug: D10 in Water IVP 250 ml IVP once Route: IVP; Site: right antecubital; nj1 18:22 Not Given (Not availablee): d50w50 ml IVP once; (1 amp) nj1 Disposition Summary: 04/30/23 18:02 Hospitalization Ordered Notes: Hospitalization Status: Inpatient Admission kb Provider: Edwardo Yu Condition: Stable kb Problem: new kb Symptoms: are unchanged kb Bed/Room Type: Standard kb Location: Telemetry/MedSurg (Inpatient)(04/30/23 22:07) rv1 Room Assignment: 208(04/30/23 22:07) rv1 Diagnosis - Acute kidney failure, unspecified kb - Hyperkalemia kb Forms: - Medication Reconciliation Form kb - SBAR form kb - Leadership Thank You Letter kb Addendum: 05/05/2023 00:56 I was immediately available for consultation during this patient's visit. I did not e c2 personally see the patient or discuss the patient with the CLOVER. . Signatures: Dispatcher [employer] EDAK Yaz Thibodeaux, KST OPERATOR-C KST OPERATOR-Ckb Matilda Hester Danielle, RN RN Maddie Baker rv1 Izabella Bragg RN RN nj1 Poncho Singh MD MD ec2 Jenna Cordoba RN ko1 Corrections: (The following items were deleted from the chart) 04/30 18:46 18:02 Telemetry/MedSurg (Inpatient) kb bd 18:46 18:02 kb bd 22:07 18:46 [facility] ER HOLD bd rv1 22:07 18:46 ERHOLD- bd rv1
--- NOTE | 2023-04-30 18:03 | ER ---
Nurse's Notes [facility] Name: Ranulfo Chao Age: 87 yrs Sex: Male : 1935 Arrival Date: 04/30/2023 Time: 16:33 Bed 6 Private MD: Diagnosis: Acute kidney failure, unspecified;Hyperkalemia Presentation: 04/30 16:49 Chief complaint: Patient states: PATIENT SENT BY PCP FOR HIGH POTASSIUM. LABS DONE db TODAY. Coronavirus screen: Client denies travel out of the [place] in the last 14 days. At this time, the client does not indicate any symptoms associated with coronavirus-19. Ebola Screen: Patient negative for fever greater than or equal to 101.5 degrees Fahrenheit, and additional compatible Ebola Virus Disease symptoms Patient denies exposure to infectious person. Patient denies travel to an Ebola-affected area in the 21 days before illness onset. No symptoms or risks identified at this time. Initial Sepsis Screen: Does the patient meet any 2 criteria? Systolic BP < 90 mmHg. Does the patient have a suspected source of infection? No. Patient's initial sepsis screen is negative. Risk Assessment: Do you want to hurt yourself or someone else? Patient reports no desire to harm self or others. Onset of symptoms was April 30, 2023. 16:49 Method Of Arrival: Wheelchair db 16:49 Acuity: SABINE 2 db Triage Assessment: 16:52 General: Appears in no apparent distress. db 17:06 General: Behavior is cooperative. Pain: Denies pain. Neuro: Level of Consciousness is db awake, alert, obeys commands, Oriented to person, place, time, situation, Speech is slurred. Respiratory: Airway is patent Respiratory effort is even, unlabored. 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 - Social history:: Smoking status: Patient denies any tobacco usage or history of. Screenin:20 [facility] ED Fall Risk Assessment (Adult) Score/Fall Risk Level 3 or more points = High nj1 Risk Oriented to surroundings, Maintained a safe environment, Provided non-skid footwear, Hourly rounding (assess needs \T\ fall precautionary measures) done, Used ambulatory aids as needed (educated on \T\ assisted with), Remained w/in arm's length of patient and in sight while toileting, Offered frequent toileting (1:1 observation), Remained with patient while ambulating, Utilized family, sitter, or virtual cork molder as indicated. Abuse screen: Denies threats or abuse. Denies injuries from another. Nutritional screening: No deficits noted. Tuberculosis screening: No symptoms or risk factors identified. Assessment: 17:20 General: Appears in no apparent distress. comfortable, Behavior is restless. Pain: nj1 Unable to use pain scale. Patient is disoriented. Neuro: Level of Consciousness is awake, alert, obeys commands, confused, Oriented to person, Moves all extremities. Speech Mumbling. Facial symmetry appears normal. Cardiovascular: Patient's skin is warm and dry. Respiratory: Airway is patent Respiratory effort is even, unlabored. 19:00 Reassessment: Remains oriented to person, pt continues to mumble and is very hard to jb4 understand. Is currently resting in bed. 20:00 Reassessment: Pt now trying to remove lr and IV. assisted back into bed. remains jb4 A\T\Ox1. Respirations are even and unlabored. 21:00 Reassessment: Patient appears in no apparent distress at this time. No changes from jb4 previously documented assessment. Patient and/or family updated on plan of care and expected duration. Pain level reassessed. 22:00 Reassessment: Pt is now resting more peacefully in bed. Remains confused and oriented jb4 x1. Is now able to be easily redirected back into bed. remains at the bedside. Vital Signs: 16:49 BP 88 / 60; Pulse 81; Resp 18; Temp 97.9; Pulse Ox 92% ; Weight 70.31 kg; Height 5 ft. db 6 in. ; 18:05 BP 121 / 71; Pulse 72; Resp 18; Pulse Ox 95% ; nj1 19:00 BP 126 / 63; Pulse 76; Resp 16; Pulse Ox 96% on 2 lpm NC; jb4 20:00 BP 102 / 75; Pulse 84; Resp 18; Pulse Ox 93% on 2 lpm NC; jb4 22:00 BP 124 / 91; Pulse 73; Resp 16; Temp 97.2(TE); Pulse Ox 94% on 2 lpm NC; jb4 16:49 Body Mass Index 25.02 (70.31 kg, 167.64 cm) db ED Course: 16:46 Patient arrived in ED. ae5 16:47 Yaz Thibodeaux FNP-C is [facility]. kb 16:47 Poncho Singh MD is Attending Physician. kb 16:52 Triage completed. db 17:01 Izabella Bragg, DAVIAN is Primary Nurse. nj1 17:06 Arm band placed on Patient placed in an exam room. db 17:17 Inserted saline lock: 20 gauge in right antecubital area, using aseptic technique. nj1 Blood collected. 17:20 Patient has correct armband on for positive identification. Bed in low position. Call nj1 light in reach. Side rails up X 1. Adult w/ patient. 18:02 Edwardo Yu MD is Hospitalizing Provider. kb 18:45 Notified Nurse Practitioner and/or Physician Clock And Watch Hands Dipper of Neurologic assessment. nj1 19:12 Report given to Jessica MARCELO. nj1 22:31 No provider procedures requiring assistance completed. Patient admitted, IV remains in jb4 place. Administered Medications: 18:15 Drug: Kayexalate PO 30 grams PO once Route: PO; nj1 18:15 Drug: Insulin Regular Human IVP 5 units IVP once {Co-Signature: ko1 (Jenna Cordoba1 RN).} Route: IVP; Site: right antecubital; 18:15 Drug: NS 0.9% IV 500 ml IV at bolus once Route: IV; Rate: bolus; Site: right nj1 antecubital; 18:15 Drug: D10 in Water IVP 250 ml IVP once Route: IVP; Site: right antecubital; nj1 18:22 Not Given (Not availablee): d50w50 ml IVP once; (1 amp) nj1 Outcome: 18:02 Decision to Hospitalize by Provider. kb 22:29 Admitted to Med/surg accompanied by tech, via stretcher, room 208, with chart, Report jb4 called to DAVIAN Mccurdy 22:29 Condition: stable 22:29 Discharge instructions given to family, Instructed on the need for admit, Demonstrated understanding of instructions, 22:31 Patient left the ED. jb4 Signatures: Yaz Thibodeaux, HARSHAL-C DYE MACHINE OPERATOR-Gildardo Stone RN RN jb4 Frida Taylor RN RN db Izabella Bragg RN RN nj1 Re [place] ae5 Jenna Cordoba RN ko1
[2023-04-30] MEDS ORDERED: D10W 250 ML IV ONE (18:04)
[2023-04-30] MEDS: NA CHLORIDE 0.9% 1,000 ML IV SCH (19:11)
[2023-04-30] MEDS: WATER FOR INJ,STERILE 10 ML IM PRN (20:45)
[2023-04-30] MEDS: ZIPRASIDONE MESYLA 20 MG/VIAL IM PRN (20:45)
--- NOTE | 2023-04-30 21:22 | P.HP ---
Patient History Date of Service: 04/30/23 Reason for admission: Elicia TINAJERO , DR CLIFTON CALLED History of Present Illness: ANDREW CHAO HAS HAD GBS FOR YEARS WITH LEG WEAKNESS. HE CAME TO ER ABOUT 4 TIMES FOR LOWER ABDOMEN PAIN, WAS FOUND TO HAVE URINARY RETENTION AND DR CLIFTON WANTED TO DO UROLIFT. PREOP LAB SHOWED K OF 6.1 AND HE CALLED ME. I ASKED HIM TO GET TO ER. I SAW HIM IN ER, SEE WHAT HE WAS TAKING. HE WAS GIVEN NAPROXENE FROM PAIN DOCTOR. I HAVE TOLD HIM AND BEFORE THAT HE SHOULD NOT TAKE ANY MEDICINES UNLESS HE SHOWS TO ME. HE WILL STOP ALL NSAIDS. Allergies levofloxacin [From Levaquin] Allergy (Verified 04/30/23 13:20) Hives/Rash Penicillins Allergy (Verified 04/30/23 13:20) Itching codeine [Codeine] Adverse Reaction (Intermediate, Verified 04/30/23 13:20) Itching INFLUENZA VIRUS VACCINES Allergy (Uncoded 04/30/23 13:20) Unknown Home medications list reviewed: Yes Home Medications: Tamsulosin [Flomax*] 0.4 mg PO DAILY cap 03/26/18 Duloxetine HCl 30 mg PO DAILY 07/13/22 Gabapentin [Neurontin*] 600 mg PO BID 07/24/22 Cyclosporine [Restasis] 1 drop EACH EYE BID 07/25/22 Finasteride [Proscar] 5 mg PO DAILY 07/25/22 Apixaban [Eliquis] 2.5 mg PO BID 04/30/23 Brimonidine Tartrate 5 ml OP BID 04/30/23 Instaflex 1 tab PO DAILY 04/30/23 Metoprolol Tartrate [Lopressor*] 25 mg PO BID 04/30/23 Naproxen Sodium 550 mg PO BID 04/30/23 Nystatin Powder [Mycostatin (Powder)] 15 gm TP DAILY 04/30/23 Oxybutynin Chloride [Oxybutynin Chloride ER] 5 mg PO BID 04/30/23 Phenazopyridine HCl [Azo Urinary Pain Relief] 97.5 mg PO DAILY 04/30/23 Phenazopyridine HCl [Pyridium] 200 mg PO Q8H 04/30/23 traMADol HCL [Ultram] 50 mg PO Q6H PRN 04/30/23 - Past Medical/Surgical History Diabetic: No -: Hx of Guillain [place] -: Coronary artery disease -: Neck pain -: Atrial Fibrillation -: CHRONIC BACK PAIN -: VERTEBRAL COMPRESSION -: HTN -: HLD -: BPH -: Stents placed in his heart -: neck surgery -: both shoulder surgery -: back surgery 2018 -: cataract surgery cesar Psychosocial/ Personal History: Pt lives at home with his - Family History Father -: Stroke Mother -: Lung disease Notes: osteoporosis Brother -: Heart disease, Lung disease - Social History Alcohol use: No CD- Drugs: No Caffeine use: No Review of Systems 10-point ROS is otherwise unremarkable General: Weakness Physical Examination - Physical Exam General: Mild distress HEENT: Atraumatic, PERRLA, Mucous membr. moist/pink, EOMI, Sclerae nonicteric Neck: Supple, 2+ carotid pulse no bruit, No LAD, Without JVD or thyroid abnormality Respiratory: Clear to auscultation bilaterally, Normal air movement Cardiovascular: Regular rate/rhythm, Normal S1 S2 Gastrointestinal: Normal bowel sounds, No tenderness Musculoskeletal: No tenderness Integumentary: No rashes Neurological: Normal gait, Normal speech, Normal strength at 5/5 x4 extr, Normal tone, Normal affect Lymphatics: No axilla or inguinal lymphadenopathy - Studies Laboratory Data (last 24 hrs) 04/30/23 04/30/23 17:17 17:17 WBC 9.00 Hgb 10.2 L Hct 31.2 L Plt Count 453 H Sodium 133 L Potassium 6.0 H BUN 49 H Creatinine 2.83 H Glucose 119 H Total Bilirubin 0.5 AST 39 H ALT 28 Alkaline Phosphatase 115 Assessment and Plan - Problems (Diagnosis) (1) Acute renal failure Current Visit: Yes Status: Acute Plan: STOP NSAIDS IV FLUIDS SHOULD IMPROVE ATN POSSIBLE. (2) Urinary retention Current Visit: Yes Status: Chronic Plan: HISTORY OF GBM PAIN HAS IMPROVED SINCE LOAIZA. 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 BILLS HE IS ON ELIQUIS BID. (5) Hyperkalemia Current Visit: No Status: Acute Plan: KAYEXALATE Q6H BMP IN AM. THIS IS FROM NSAIDS AGAIN - Advance Directives Does patient have a Living Will: No Does patient have a Durable POA for Healthcare: No
[2023-04-30 22:46] VITALS: BMI 25.0
[2023-04-30] MEDS: SOD POLYSTYREN SUL 15 GM/60 ML UCUP PO SCH (22:53)
[2023-05-01 03:53] LABS: Hematocrit 26.2 % (39.6-49.0); Lymphocytes % 22.4 % (15.3-44.8); MCV 83.6 fL (80-100); MPV 7.3 fL (7.6-11.3); Platelets 371 thou/uL (152-406); RBC Red Blood Cell Count 3.14 M/uL (4.33-5.43)
[2023-05-01 03:57] LABS: Potassium 4.8 mEq/L (3.5-5.1)
[2023-05-01] MEDS ORDERED: TRAMADOL HCL 50 MG TAB PO PRN (08:00)
[2023-05-01] MEDS: BRIMONIDINE TARTRATE OPTH SCH (09:00)
[2023-05-01] MEDS: HOME MED 1 EA UNK (Cyclosporine [Restasis] Droperette) OPTH SCH (09:00)
[2023-05-01] MEDS: FINASTERIDE 5 MG TAB PO SCH (09:40)
[2023-05-01] MEDS: DULOXETINE 30 MG CAP PO SCH (09:40)
[2023-05-01] MEDS: TAMSULOSIN 0.4 MG SR CAP PO SCH (09:40)
[2023-05-01] MEDS: APIXABAN 2.5 MG TABLET PO SCH (09:40)
[2023-05-01] MEDS: GABAPENTIN 300 MG CAP PO SCH (09:40)
[2023-05-01] MEDS: METOPROLOL TAR 25 MG TAB PO SCH (09:40)
[2023-05-01] MEDS: NA CHLORIDE 0.9% 1,000 ML IV SCH (13:00)
--- NOTE | 2023-05-01 14:05 | CON ---
Date of Consultation: 05/01/2023 Reason For Consultation: Elevated BUN and creatinine, hyperkalemia. History Of Present Illness: This is a pleasant 87-year-old gentleman with significant past medical h istory of CAD, hypertension, hyperlipidemia, benign prostate hypertrophy, chronic obstructive uropath y, plan for left by Dr. Vines, the patient was in his regular state of health, apparently was plan f or surgical left by Dr. Vines. The patient came for preop lab, found to have hyperkalemia, potassiu m of 6, and elevation in BUN and creatinine. For that reason, we have been consulted. Upon admissio n, the patient's creatinine was 2.8. The patient's previous creatinine was 1.2 with GFR of 56. The patient admit that he has been taking naproxen for the last few weeks for low back pain. No other in sulting medication. No SUSAN inhibitor. No ARB. Allergies: LEVAQUIN, PENICILLIN, CODEINE, INFLUENZA. Home Medications: Include Flomax, gabapentin, Cyclosporine, finasteride, Eliquis, metoprolol, naprox en, nystatin, oxybutynin, and tramadol. Past Medical History: Include Guillain Nephi, CAD status post PCI, AFib, hypertension, benign prosta te hypertrophy require urine left. Secondary to neurogenic bladder and prostate hypertrophy, recurre nt acute kidney injury. Past Surgical History: Include back surgery, cataract and neck surgery. Family History: Positive for CVA and lung disease. Social History: Denied smoking, denied drinking, denied drugs abuse. Review of Systems: Head and Neck: No red eye. No ear pain. GI: Has no nausea, no vomiting. : Has dysuria, has urine retention, has Mccarthy. HOUSEKEEPER CLEANING COOKING: Not applicable. Respiratory: No shortness of breath. Cardiovascular: No chest pain. Endocrine: No polydipsia. Skin: No rash. Neuro: Generalized fatigue. Musculoskeletal: Has low back pain. Physical Examination: Vital Signs: When I saw the patient, blood pressure of 118/61, pulse of 86, afebrile. Chest: Clear to auscultation. Heart: S1, S2. Regular. Abdomen: Soft, nontender. Extremities: No edema. Neurologic: Alert. No weakness. Laboratory Data: Sodium 138, potassium 4.8, bicarb 26, BUN 48, creatinine 2.1, GFR 28, calcium 8.8 y esterday, potassium 6 and creatinine 2.8, hemoglobin 8.6. Current Medications: The patient on, include IV fluid. Naproxen has been DC'd. FloGeraldine lopez, toprolol 25 b.i.d., gabapentin 600 b.i.d., finasteride, tramadol. Assessment And Plan: 1.Acute kidney injury secondary to obstructive uropathy/naproxen use on the recovery phase. I agree with holding naproxen. Continue IV hydration. I again increase the IV to 100 and we will monitor t he patient. We will go ahead and send for uric acid and CK to evaluate if there are any other causes . 2.We will follow up with primary and Urology about the plan of UroLift. 3.Hypertension, controlled, optimal. Continue current treatment. 4.Hyponatremia secondary to dehydration. Continue IV fluid. 5.Hyperkalemia, secondary to renal failure, recovered, resolved. Continue hydration. ARLENE Voice ID: [id number] Report ID: [id number]
--- NOTE | 2023-05-01 21:05 | P.PN ---
Subjective Date of Service: 05/01/23 Chief Complaint: Elicia TINAJERO , DR CLIFTON CALLED Subjective: Improving AGITATED LAST NIGHT BUT BACK TO BASELINE TODAY. Review of Systems 10-point ROS is otherwise unremarkable General: Weakness Physical Examination - Vital Signs Temperature: 98.0 F Blood Pressure: 122/68 Pulse: 97 Respirations: 15 Pulse Ox (%): 92 - Physical Exam General: Acute distress, Mild distress HEENT: Atraumatic, PERRLA, EOMI Neck: Supple, JVD not distended Respiratory: Clear to auscultation bilaterally, Normal air movement Cardiovascular: Regular rate/rhythm, Normal S1 S2 Gastrointestinal: Normal bowel sounds, No tenderness Musculoskeletal: No tenderness Integumentary: No rashes Neurological: Normal speech, Normal tone, Normal affect Lymphatics: No axilla or inguinal lymphadenopathy - Studies Medications List Reviewed: Yes Assessment And Plan - Current Problems (Diagnosis) (1) Acute renal failure Current Visit: Yes Status: Acute Plan: STOP NSAIDS IV FLUIDS SHOULD IMPROVE ATN POSSIBLE. FU BUN CREAT IN AM WILL GO HOME IN AM. HAS JOSSE AND WILL FU WITH DR. CLIFTON (2) Urinary retention Current Visit: Yes Status: Chronic Plan: HISTORY OF GBM PAIN HAS IMPROVED SINCE JOSSE. 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 BILLS HE IS ON ELIQUIS BID. (5) Hyperkalemia Current Visit: No Status: Acute Plan: KAYEXALATE Q6H BMP IN AM. THIS IS FROM NSAIDS AGAIN RESOLVED STOP KAYEXAALTE
[2023-05-02 04:18] LABS: Absolute Lymphocytes (CBC) 2.1 K/uL (0.7-4.9); Hematocrit 27.1 % (39.6-49.0); Lymphocytes % 31.3 % (15.3-44.8); MCV 84.3 fL (80-100); MPV 7.4 fL (7.6-11.3); Platelets 360 thou/uL (152-406); RBC Red Blood Cell Count 3.21 M/uL (4.33-5.43)
[2023-05-02 04:50] LABS: Albumin 2.7 g/dL (3.4-5.0); Phosphorus 3.1 mg/dL (2.5-4.9); Potassium 4.2 mEq/L (3.5-5.1); Uric Acid 6.1 mg/dL (3.5-7.2)
[2023-05-02 08:44] VITALS: BP 135/74
[2023-05-02 09:09] VITALS: O2SAT 94
[2023-05-02 09:10] VITALS: TEMP 98.3
--- NOTE | 2023-05-02 20:48 | P.DS ---
Admission Date: 04/30/23 Discharge Date: 05/02/23 Disposition: ROUTINE DISCHARGE Discharge Condition: FAIR Reason for Admission: Elicia TINAJERO , DR CLIFTON CALLED - Problems (1) Acute renal failure Status: Acute (2) Urinary retention Status: Chronic (3) Guillain Vo syndrome Status: Chronic (4) A-fib Status: Chronic (5) Hyperkalemia Status: Acute Brief History of Present Illness: ANDREW CHAO HAS HAD GBS FOR YEARS WITH LEG WEAKNESS. HE CAME TO ER ABOUT 4 TIMES FOR LOWER ABDOMEN PAIN, WAS FOUND TO HAVE URINARY RETENTION AND DR CLIFTON WANTED TO DO UROLIFT. PREOP LAB SHOWED K OF 6.1 AND HE CALLED ME. I ASKED HIM TO GET TO ER. I SAW HIM IN ER, SEE WHAT HE WAS TAKING. HE WAS GIVEN NAPROXENE FROM PAIN DOCTOR. I HAVE TOLD HIM AND BEFORE THAT HE SHOULD NOT TAKE ANY MEDICINES UNLESS HE SHOWS TO ME. HE WILL STOP ALL NSAIDS. Hospital Course: MR. CHAO IS A PATIENT WITH GBS WHO HAS BEEN TO ER FOUR TIMES IN LAST MONTH FOR LOWER ABDOMEN PAIN. HE DID NOT SHOW UP TO OFFICE DURING THIS TIME. HE HAD LOWER ABDOMEN PAIN FROM RETENTION OF URINE. HE WAS ALSO GIVEN NAPROXENE BY PAIN DOCTOR. HE DEVELOPED ARF AND HYPERKALEMIA. I TOLD MANY TIMES NOT TO START ANY MEDS WITHOUT ASKING ME FIRST. IT TOO K TWO DAYS TO IMPROVE HIS HYPERKALEMIA AND REVERSE ACUTE RENAL FAILURE WITH MEDS AND IV FLUIDS. HE WILL RETURN TO OFFICE IN ONE WEEK. Vital Signs/Physical Exam: Temp Pulse Resp BP Pulse Ox 98.3 F 88 15 135/74 94 05/02/23 08:00 05/02/23 08:42 05/02/23 08:00 05/02/23 08:42 05/02/23 08:00 Laboratory Data at Discharge: WBC 6.80 thou/uL (4.3-10.9) 05/02/23 03:46 Hgb 8.9 g/dL (13.6-17.9) L 05/02/23 03:46 Hct 27.1 % (39.6-49.0) L 05/02/23 03:46 Plt Count 360 thou/uL (152-406) 05/02/23 03:46 Sodium 139 mEq/L (136-145) 05/02/23 03:46 Potassium 4.2 mEq/L (3.5-5.1) 05/02/23 03:46 BUN 31 mg/dL (7-18) H 05/02/23 03:46 Creatinine 1.41 mg/dL (0.70-1.30) H 05/02/23 03:46 Glucose 107 mg/dL (74-106) H 05/02/23 03:46 Uric Acid 6.1 mg/dL (3.5-7.2) 05/02/23 03:46 Phosphorus 3.1 mg/dL (2.5-4.9) 05/02/23 03:46 Total Bilirubin 0.5 mg/dL (0.2-1.0) 04/30/23 17:17 AST 39 U/L (15-37) H 04/30/23 17:17 ALT 28 U/L (16-61) 04/30/23 17:17 Alkaline Phosphatase 115 U/L (45-117) 04/30/23 17:17 Home Medications: Tamsulosin [Flomax*] 0.4 mg PO DAILY cap 03/26/18 Duloxetine HCl 30 mg PO DAILY 07/13/22 Gabapentin [Neurontin*] 600 mg PO BID 07/24/22 Cyclosporine [Restasis] 1 drop EACH EYE BID 07/25/22 Finasteride [Proscar] 5 mg PO DAILY 07/25/22 Apixaban [Eliquis] 2.5 mg PO BID 04/30/23 Brimonidine Tartrate 5 ml OP BID 04/30/23 Instaflex 1 tab PO DAILY 04/30/23 Metoprolol Tartrate [Lopressor*] 25 mg PO BID 04/30/23 Nystatin Powder [Mycostatin (Powder)*] 15 gm TP DAILY 04/30/23 traMADol HCL [Ultram*] 50 mg PO Q6H PRN 04/30/23 Followup: NONE,NONE [Primary Care Provider] -
== END 2023-05-02 09:37 | disposition home or self-care (01) | DRG 683 ==
LOC: ER 16:33 → ERHOLD 17:57 → 2ND 22:22
PROVIDERS: ADMIT Internal Medicine; ATTEND Internal Medicine
DX: N17.9 Acute kidney failure, unspecified (principal); E87.1 Hypo-osmolality and hyponatremia; G61.0 Guillain-Barre syndrome; I48.20 Chronic atrial fibrillation, unspecified; E87.5 Hyperkalemia; I10 Essential (primary) hypertension; E86.0 Dehydration; E78.00 Pure hypercholesterolemia, unspecified; N40.0 Benign prostatic hyperplasia without lower urinary tract symptoms; I25.10 Atherosclerotic heart disease of native coronary artery without angina pectoris; R33.9 Retention of urine, unspecified; Z88.5 Allergy status to narcotic agent; Z88.1 Allergy status to other antibiotic agents; Z88.7 Allergy status to serum and vaccine; Z95.5 Presence of coronary angioplasty implant and graft; Z88.0 Allergy status to penicillin; Z79.01 Long term (current) use of anticoagulants; Z79.899 Other long term (current) drug therapy
CPT/HCPCS: 36415; 80048; 80053; 80069; 82550; 82947; 84550; 85025; 96374; 99285; J1815; J3486; J7030; J7040

== ENCOUNTER → 2023-05-05 | Emergency (ER) | payer OTHER ==
[~2023-05-05] MED LIST changes: -FLUCONAZOLE 100 MG TAB ONE; -HYDROCODONE/APAP 10/325 TAB ONE; -LIDOCAINE VISCOUS 2% 10ML ORAL SOLN ONE; +MORPHINE 4 MG/ML SYR ONE; +NA CHLORIDE 0.9% 1,000 ML ONE; +NITROFURAN MACRO 100 MG CAP PO ONE; -ONDANSETRON 4 MG (ODT) TAB ONE; +ONDANSETRON 4 MG/2 ML VIAL ONE; -PHENAZOPYRIDINE 100MG TAB PO ONE
[2023-05-05 08:44] LABS: Specific Gravity 1.016 (1.005-1.030); Urine Bacteria <20 /HPF (<20); Urine Bilirubin NEGATIVE (Negative); Urine Blood 3+ (OVER) (Negative); Urine Clarity Extremely Turbid (Clear); Urine Color Yellow (Yellow); Urine Glucose NEGATIVE (Negative); Urine Mucus Slight /HPF (None Seen); Urine Protein TRACE (Negative); Urine RBC >50 /HPF (None Seen); Urine Urobilinogen Normal (Normal)
[2023-05-05 08:44] LABS: Hematocrit 30.7 % (39.6-49.0); MCV 83.6 fL (80-100); MPV 7.5 fL (7.6-11.3); Platelets 397 thou/uL (152-406); RBC Red Blood Cell Count 3.68 M/uL (4.33-5.43)
[2023-05-05 08:47] LABS: Protime INR 1.23
[2023-05-05 09:00] LABS: Albumin 3.3 g/dL (3.4-5.0); Bilirubin Total 0.4 mg/dL (0.2-1.0); Potassium 3.9 mEq/L (3.5-5.1); Protein, Total 7.2 g/dL (6.4-8.2)
--- NOTE | 2023-05-05 09:24 | RAD REPORT ---
EXAM DESCRIPTION: CTAbdomen Pelvis W Contrast - 05/05/2023 9:12 am CLINICAL HISTORY: ABD PAIN COMPARISON: Abdomen Pelvis W Contrast dated 04/04/2023; Abdomen Pelvis W Contrast dated 09/30/2022 ; Abdomen Pelvis W Contrast dated 01/15/2022; CT ABD PELVIS W CONTRAST dated 09/13/2011; Abdomen Pel vis Wo Contrast dated 11/25/2022 TECHNIQUE: CT of the abdomen and pelvis was performed. All CT scans are performed using dose optimization technique as appropriate and may include automated exposure control or mA/KV adjustment according to patient size. FINDINGS: Lower chest: Dependent atelectasis. Coronary artery stent. Liver: No acute abnormality or suspicious lesions. Biliary: Cholelithiasis with distended gallbladder, similar to prior. Stomach: No significant focal abnormality. Duodenum: Subtle hyperenhancement and stranding at the first and second portion of the duodenum. Pancreas: No significant abnormality. Spleen: No significant abnormality. Adrenal: No suspicious lesions. Kidney/ureter: No hydronephrosis. No renal calculi. Retroperitoneum: No retroperitoneal adenopathy. Vascular: Atherosclerosis without aneurysm. Bowel: Diverticulosis. No evidence of acute diverticulitis.. Peritoneum: Fat containing inguinal hernias, left greater than right. Bladder: Mccarthy catheter in the bladder. Gas within the bladder may be from instrumentation. Reproductive: Prostatomegaly. Bones: No acute fracture. Lumbosacral fusion with screws traversing the SI joints. Multilevel degener ative changes are present in the spine. Other: n/a IMPRESSION: No definite acute findings. Possible subtle edema at the proximal duodenum which could r epresent duodenitis or peptic ulcer disease. Endoscopy could better evaluate. Cholelithiasis without CT evidence acute cholecystitis. Diverticulosis without diverticulitis.
--- NOTE | 2023-05-05 09:43 | ER ---
Nurse's Notes [facility] Name: Ranulfo Chao Age: 87 yrs Sex: Male : 1935 Arrival Date: 05/05/2023 Time: 07:41 Bed 8 Private MD: Diagnosis: UTI/ Urinary tract infection, site not specified;Lower abdominal pain, unspecified Presentation: 05/05 08:00 Chief complaint: Patient states: was discharged from hospital on Friday , was admitted iw for kidney failure, today he is having lower abd pain. Coronavirus screen: At this time, the client does not indicate any symptoms associated with coronavirus-19. Ebola Screen: Patient negative for fever greater than or equal to 101.5 degrees Fahrenheit, and additional compatible Ebola Virus Disease symptoms Patient denies exposure to infectious person. Patient denies travel to an Ebola-affected area in the 21 days before illness onset. No symptoms or risks identified at this time. Initial Sepsis Screen: Does the patient meet any 2 criteria? No. Patient's initial sepsis screen is negative. Does the patient have a suspected source of infection? No. Patient's initial sepsis screen is negative. 08:00 Method Of Arrival: Wheelchair iw 08:00 Acuity: SABINE 3 iw 10:01 Risk Assessment: Do you want to hurt yourself or someone else? Patient reports no ph desire to harm self or others. 10:01 Onset of symptoms was May 05, 2023. 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 - Social history:: Smoking status: Patient denies any tobacco usage or history of. Screenin:00 [facility] ED Fall Risk Assessment (Adult) Confusion or Disorientation Yes (5 pts) iw Impaired Gait Yes (1 pt) Score/Fall Risk Level 3 or more points = High Risk Assessed \T\ reinforced patient's understanding of fall precautions, Utilized family, sitter, or virtual ice maker as indicated. Abuse screen: Denies threats or abuse. Denies injuries from another. Nutritional screening: No deficits noted. Tuberculosis screening: No symptoms or risk factors identified. Assessment: 08:00 General: Appears in no apparent distress. Behavior is cooperative, anxious. Pain: iw Complains of pain in left lower quadrant. Neuro: Level of Consciousness is awake, alert, obeys commands, Moves all extremities. Cardiovascular: Patient's skin is warm and dry. Respiratory: Respiratory effort is even, unlabored, Respiratory pattern is regular, symmetrical. GI: Abdomen is non-distended, Abd is soft and non tender X 4 quads. : Mccarthy in place to gravity drainage Urine is cloudy, Reports pain in suprapubic area. Derm: Skin is intact, is fragile, Skin is normal. Musculoskeletal: Range of motion: intact in all extremities. 09:34 Reassessment: Patient appears in no apparent distress at this time. No changes from iw previously documented assessment. Patient and/or family updated on plan of care and expected duration. Pain level reassessed. 10:01 Reassessment: Patient appears in no apparent distress at this time. Patient and/or ph family updated on plan of care and expected duration. Pain level reassessed. D/C pending completion of IV fluids. Vital Signs: 08:00 BP 138 / 78; Pulse 118; Resp 18; Temp 99.2; Pulse Ox 93% on R/A; iw 09:36 BP 133 / 71; Pulse 100; Resp 19; Pulse Ox 91% ; iw 10:02 BP 119 / 72; Pulse 95; Resp 18; Pulse Ox 93% on R/A; ph ED Course: 07:43 Patient arrived in ED. mg5 07:59 Jesika Eller PA-C is PHCP. sb4 07:59 Gonzalo Urbina MD is Attending Physician. sb4 08:00 Мария Tucker, RN is Primary Nurse. iw 08:04 Triage completed. iw 08:30 Initial lab(s) drawn, by me, sent to lab. First set of blood cultures drawn by me. iw 08:35 Inserted saline lock: 22 gauge in right forearm, using aseptic technique. Blood iw collected. 09:00 Patient has correct armband on for positive identification. Provided Education on: . iw 09:14 CT Abd/Pelvis - IV Contrast Only In Process Unspecified. EDMS 09:43 Edwardo Yu MD is Referral Physician. sb4 10:01 Arm band placed on. ph 10:44 No provider procedures requiring assistance completed. IV discontinued, intact, iw bleeding controlled, No redness/swelling at site. Pressure dressing applied. Administered Medications: 08:48 Drug: Ondansetron IVP 4 mg IVP once; over 2 minutes Route: IVP; Site: right forearm; iw 09:10 Follow up: Response: No adverse reaction iw 08:48 Drug: morphine IVP or IV 4 mg IVP once over 4 mins Route: IVP; Infused Over: 4 mins; iw Site: right forearm; 09:15 Follow up: Response: No adverse reaction; Pain is decreased iw 09:32 Drug: NS 0.9% IV 1000 ml IV at 1 bolus Per protocol; 1000 mL bolus Route: IV; Rate: 1 iw bolus; Site: right forearm; 10:54 Follow up: IV Status: Completed infusion iw 09:32 Drug: Macrobid PO 100 mg PO once; administer with food Route: PO; iw 10:00 Follow up: Response: No adverse reaction iw Medication: 10:02 VIS not applicable for this client. ph Outcome: 09:43 Discharge ordered by . sb4 10:45 Discharged to home via wheelchair, with family, iw 10:45 Condition: good 10:45 Discharge instructions given to patient, family, Instructed on discharge instructions, follow up and referral plans. medication usage, Demonstrated understanding of instructions, follow-up care, medications, Prescriptions given X 1, 10:45 Patient left the ED. iw Signatures: Dispatcher [employer] Мария Christiansen RN RN iw Brittney Mallory RN RN ph Brown, Sophia, PARika PAAtiyaC sb4 Magy Burns 5
--- NOTE | 2023-05-05 09:43 | EDPHYS ---
Physician Documentation [facility] Name: Ranulfo Chao Age: 87 yrs Sex: Male : 1935 Arrival Date: 05/05/2023 Time: 07:41 Bed 8 Private MD: ED Physician Gonzalo Urbina HPI: 05/05 08:12 This 87 yrs old Male presents to ER via Wheelchair with complaints of abdominal pain. sb4 08:12 The patient presents with abdominal pain in the left lower quadrant. Onset: The sb4 symptoms/episode began/occurred yesterday. The symptoms do not radiate. Associated signs and symptoms: none. The symptoms are described as vague. Modifying factors: The symptoms are alleviated by nothing, the symptoms are aggravated by nothing. The patient has been recently been admitted at [facility], was discharged from the hospital May 02, 2023. . 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 - Social history:: Smoking status: Patient denies any tobacco usage or history of. ROS: 08:12 Constitutional: Negative for fever, chills, and weight loss, sb4 08:12 Abdomen/GI: Positive for abdominal pain, 08:12 All other systems are negative, Exam: 08:12 Head/Face: Normocephalic, atraumatic. Eyes: Extra-ocular motions intact. Periorbital sb4 areas with no swelling, redness, or edema. ENT: Mucous membranes moist. Respiratory: Lungs have equal breath sounds bilaterally, clear to auscultation and percussion. No rales, rhonchi or wheezes noted. No increased work of breathing, no retractions or nasal flaring. Abdomen/GI: Soft, non-tender, no distension. Skin: Warm, dry with normal turgor. Normal color with no rashes, no lesions, and no evidence of cellulitis. MS/ Extremity: Pulses equal, no cyanosis. Neurovascular intact. Full, normal range of motion. 08:12 Constitutional: The patient appears alert, awake, uncomfortable, unkempt, 08:12 Cardiovascular: Rate: tachycardic, Rhythm: regular, 08:12 Neuro: dementia, Vital Signs: 08:00 BP 138 / 78; Pulse 118; Resp 18; Temp 99.2; Pulse Ox 93% on R/A; iw 09:36 BP 133 / 71; Pulse 100; Resp 19; Pulse Ox 91% ; iw 10:02 BP 119 / 72; Pulse 95; Resp 18; Pulse Ox 93% on R/A; ph MDM: 08:00 Patient medically screened. sb4 08:12 Differential diagnosis: bowel obstruction, diverticulitis, non-specific abd pain, sb4 Peritonitis, Prostatitis, urinary tract infection. 09:05 ED course: urine culture from 04/30/23 grew enterococcus faecalis with sensitivity to sb4 ampicillin, levofloxacin, ciprofloxacin, gentamycin, nitrofurantoin, penicillin, and vancomycin. does not appear that he was given any antibiotics during his hospitalization nor on discharge. patient has allergy to penicillin and levofloxacin, will give 1 dose Macrobid now and sent home with rx for Macrobid. . 09:43 Data reviewed: vital signs, nurses notes, lab test result(s), radiologic studies, and sb4 as a result, I will discharge patient. Historians other than the Patient: Spouse/Significant Other: . Care significantly affected by the following chronic conditions: Hypertension. Counseling: I had a detailed discussion with the patient and/or guardian regarding the historical points, exam findings, and any diagnostic results supporting the discharge/admit diagnosis, lab results, radiology results, to return to the emergency department if symptoms worsen or persist or if there are any questions or concerns that arise at home. 05/05 08:11 Order name: CBC with Diff; Complete Time: 08:46 sb4 05/05 08:11 Order name: CMP; Complete Time: 09:02 sb4 05/05 08:11 Order name: Lipase; Complete Time: 09:02 sb4 05/05 08:11 Order name: Urinalysis w/ reflexes; Complete Time: 08:59 sb4 05/05 08:11 Order name: Lactate w/ 2H reflex if indic.; Complete Time: 09:02 sb4 05/05 08:11 Order name: Blood Culture Adult (2) sb4 05/05 08:11 Order name: PT-INR; Complete Time: 08:48 sb4 05/05 08:11 Order name: Ptt, Activated; Complete Time: 08:48 sb4 05/05 09:01 Order name: Urine Culture EDMS 05/05 08:11 Order name: CT Abd/Pelvis - IV Contrast Only; Complete Time: 09:27 sb4 05/05 08:11 Order name: IV Saline Lock; Complete Time: 08:35 sb4 05/05 08:11 Order name: Labs collected and sent; Complete Time: 08:35 sb4 Administered Medications: 08:48 Drug: Ondansetron IVP 4 mg IVP once; over 2 minutes Route: IVP; Site: right forearm; iw 09:10 Follow up: Response: No adverse reaction iw 08:48 Drug: morphine IVP or IV 4 mg IVP once over 4 mins Route: IVP; Infused Over: 4 mins; iw Site: right forearm; 09:15 Follow up: Response: No adverse reaction; Pain is decreased iw 09:32 Drug: NS 0.9% IV 1000 ml IV at 1 bolus Per protocol; 1000 mL bolus Route: IV; Rate: 1 iw bolus; Site: right forearm; 10:54 Follow up: IV Status: Completed infusion iw 09:32 Drug: Macrobid PO 100 mg PO once; administer with food Route: PO; iw 10:00 Follow up: Response: No adverse reaction iw Disposition: 11:40 Co-signature as Attending Physician, Gonzalo Urbina MD I reviewed the patient's care rt provided by the Advanced Practice Provider and agree with the diagnosis and treatment plan. Disposition Summary: 05/05/23 09:43 Discharge Ordered Notes: Location: Home sb4 Problem: new sb4 Symptoms: have improved sb4 Condition: Stable sb4 Diagnosis - UTI/ Urinary tract infection, site not specified sb4 - Lower abdominal pain, unspecified sb4 Followup: sb4 - With: Edwardo Yu MD - When: 2 - 3 days - Reason: Recheck today's complaints, Re-evaluation by your physician Discharge Instructions: - Discharge Summary Sheet sb4 - Urinary Tract Infection, Adult, [id number] sb4 Forms: - Thank You Letter sb4 - Antibiotic Education sb4 - Patient Portal Instructions sb4 - Leadership Thank You Letter sb4 Prescriptions: - Macrobid 100 mg Oral Capsule - take 1 capsule ORAL route every 12 hours for 10 days; 20 capsule; Refills: 0, sb4 Product Selection Permitted Signatures: Dispatcher [employer] Мария Christiansen RN RN iw Hall, Patricia, RN RN ph Brown, Sophia, LUIS ANTONIO SALMON sb4 Gonzalo Urbina MD MD rt Corrections: (The following items were deleted from the chart) 09:28 08:12 Neuro: sb4 sb4
[2023-05-05 10:52] VITALS: TEMP 99.2
[2023-05-05 11:19] VITALS: BP 119/72; O2SAT 93
== END ==
LOC: ER 07:41
DX: N39.0 Urinary tract infection, site not specified (principal); Z88.1 Allergy status to other antibiotic agents; Z88.5 Allergy status to narcotic agent; Z88.7 Allergy status to serum and vaccine
CPT/HCPCS: 87040; 87088; 85025; 81001; 87086; 36415; 85610; 83605; 85730; 83690; 80053; 74177; Q9967; J2405; J7030; 96361; 96374; 96375; 99284

== ENCOUNTER 2023-05-26 14:35 | Inpatient (IN) | payer OTHER ==
[2023-05-26 15:40] LABS: Absolute Basophils 0.1 K/uL (0-0.5); Absolute Eosinophils 0.4 K/uL (0-0.5); Absolute Lymphocytes (CBC) 2.3 K/uL (0.7-4.9); Absolute Monocytes 0.7 K/uL (0.1-1.3); Absolute Neutrophil 6.3 K/uL (1.8-8.0); Basophils % 1.5 % (0-1.3); Eosinophils % 4.5 % (0-4.4); Hematocrit 32.2 % (39.6-49.0); Hemoglobin 10.7 g/dL (13.6-17.9); Lymphocytes % 23.1 % (15.3-44.8); MCH 27.2 pg (27.0-35.0); MCHC 33.1 g/dL (32.0-36.0); MCV 82.1 fL (80-100); MPV 7.8 fL (7.6-11.3); Monocytes % 6.7 % (3.3-12.3); Neutrophils % 64.2 % (41.7-73.7); Platelets 389 thou/uL (152-406); RBC Red Blood Cell Count 3.93 M/uL (4.33-5.43); Red Cell Distribution Width 14.7 % (12.1-15.2)
[2023-05-26 15:55] LABS: Albumin 3.3 g/dL (3.4-5.0); Albumin/Globulin Ratio 0.8 (1.1-1.8); Anion Gap 10.1 mEq/L (5.0-15.0); Bilirubin Total 0.3 mg/dL (0.2-1.0); Globulin 3.9 g/dL (2.3-3.5); Protein, Total 7.2 g/dL (6.4-8.2)
[2023-05-26 16:02] LABS: Potassium 4.1 mEq/L (3.5-5.1)
[2023-05-26 17:06] LABS: Specific Gravity 1.023 (1.005-1.030); Sqamous Epithelial None Seen /HPF (None Seen); Urine Bacteria None Seen /HPF (<20); Urine Bilirubin 1+ (Negative); Urine Blood Negative (Negative); Urine Clarity Clear (Clear); Urine Color Dark-Yellow (Yellow); Urine Culture Reflex Order NOT NEEDED; Urine Glucose NEGATIVE (Negative); Urine Ketones NEGATIVE (Negative); Urine Microscopic Reflex YN ORDER UMIC; Urine Mucus Slight /HPF (None Seen); Urine Nitrite 1+ (Negative); Urine Protein NEGATIVE (Negative); Urine RBC <5 /HPF (None Seen); Urine Urobilinogen 2+ (Normal); Urine WBC <5 /HPF (<5); Urine pH 6.5 (5.0-7.0)
--- NOTE | 2023-05-26 17:34 | RAD REPORT ---
EXAM DESCRIPTION: CT - Abdomen Pelvis W Contrast - 05/26/2023 4:46 pm CLINICAL HISTORY: ABD PAIN COMPARISON: Abdomen Pelvis W Contrast dated 05/05/2023; Abdomen Pelvis W Contrast dated 04/04/2023 ; Abdomen Pelvis W Contrast dated 09/30/2022; Abdomen Pelvis W Contrast dated 01/15/2022 TECHNIQUE: Thin cut axial CT imaging of the abdomen and pelvis was performed following intravenous a dministration of 100 mL Isovue 300. Multiplanar reformats were generated and reviewed. All CT scans are performed using dose optimization technique as appropriate and may include automated exposure control or mA/KV adjustment according to patient size. FINDINGS: Motion artifact in the lower abdomen somewhat limits evaluation. No suspicious findings in the lung bases. The liver, spleen, adrenal glands, and pancreas show no suspicious findings. Gallbladder demonstrates multiple cholesterol containing stones. Symmetric renal function is seen with no hydronephrosis or suspicious renal mass. Stable mild inflammatory fat stranding along the first part of the duodenum. No dilated bowel loops o r bowel wall thickening. Colonic diverticulosis. No free air, free fluid or other inflammatory strand ing. Left inguinal hernia containing fat. No suspicious mass or bulky lymphadenopathy. Urinary bladde r is decompressed limiting evaluation. Radiation markers within the prostate gland. No suspicious bony findings. L4-S1 fusion hardware in stable alignment appears streak artifact limits evaluation. IMPRESSION: Stable appearance of mild inflammatory fat stranding along the first part of the duodenu m. This may relate to duodenitis or peptic ulceration. Cholelithiasis. No other acute intra-abdominal process.
[2023-05-26] MEDS ORDERED: PANTOPRAZOLE 40 MG INJ ONE (17:44)
--- NOTE | 2023-05-26 18:12 | EDPHYS ---
Physician Documentation [facility] Name: Ranulfo Chao Age: 87 yrs Sex: Male : 1935 Arrival Date: 05/26/2023 Time: 14:35 Bed 11 Private MD: Edwardo Yu V ED Physician Gerardo Dodson HPI: 05/25 18:20 This 87 yrs old Male presents to ER via Wheelchair with complaints of Pain All Over. [facility] 18:20 87-year-old male with past medical history of Guillain-Vo, BPH presents to the [facility] emergency department for abdominal pain for a long time. Patient's notes patient had prostate surgery on Friday. Patient saw Dr. Amin on Friday and was sent for x-rays. Patient has an appointment with Dr. Yu today however when his called Dr. Yu's office they informed her they cannot help get him out of the vehicle. Patient's notes patient has had lower abdominal pain that is worse on the left side. Patient rates the pain a 4/10 and states the pain is worse when getting up or walking. Historical: - Allergies: 15:17 Codeine; iw 15:17 Influenza Virus Vaccines; iw 15:17 Levaquin; iw - Home Meds: 18:17 gabapentin 600 mg oral tablet 3 times per day [Active]; tamsulosin 0.4 mg oral capsule tl4 1 cap daily [Active]; duloxetine 30 mg oral capsule,delayed release (e.c.) 1 cap daily [Active]; nitrofurantoin macrocrystal 100 mg Oral capsule 1 cap every 12 hours [Active]; ketorolac 10 mg Oral tablet 1 tab every 6 hours [Active]; oxybutynin chloride 5 mg Oral Tablet, Extended Release 24 hr 1 tab daily [Active]; Eliquis 2.5 mg oral tablet 1 tab daily [Active]; rosuvastatin 20 mg oral tablet 1 tab daily [Active]; brimonidine 0.2 % ophthalmic (eye) drops 1 drop twice a day [Active]; - PMHx: 15:17 BPH; guillian barre; High Cholesterol; Hypertension; 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 - Social history:: Smoking status: Patient denies any tobacco usage or history of. ROS: 18:20 Constitutional: Negative for fever, and chills. Cardiovascular: Negative for chest ms3 pain, and palpitations. Respiratory: Negative for shortness of breath, cough, wheezing, and pleuritic chest pain, 18:20 MS/Extremity: Negative for injury and deformity, Skin: Negative for injury, rash, and discoloration, 18:20 Abdomen/GI: Positive for abdominal pain, 18:20 All other systems are negative, Exam: 18:20 Constitutional: This is a well developed, well nourished patient who is awake, alert, ms3 and in no acute distress. Head/Face: Normocephalic, atraumatic. Chest/axilla: Normal chest wall appearance and motion. Nontender with no deformity. Cardiovascular: Regular rate and rhythm with a normal S1 and S2. No gallops, murmurs, or rubs. Normal PMI, no JVD. No pulse deficits. Respiratory: Lungs have equal breath sounds bilaterally, clear to auscultation and percussion. No rales, rhonchi or wheezes noted. No increased work of breathing, no retractions or nasal flaring. Abdomen/GI: Soft, non-tender, with normal bowel sounds. No distension or tympany. No guarding or rebound. No evidence of tenderness throughout. Skin: Warm, dry with normal turgor. Normal color with no rashes, no lesions, and no evidence of cellulitis. MS/ Extremity: Pulses equal, no cyanosis. Neurovascular intact. Full, normal range of motion. Vital Signs: 15:18 BP 125 / 70; Pulse 104; Resp 18; Pulse Ox 94% on R/A; iw 16:00 BP 121 / 75; Pulse 104; Resp 17; Pulse Ox 96% on R/A; tl4 16:30 BP 120 / 68; Pulse 99; Resp 18; Pulse Ox 97% on R/A; tl4 17:00 BP 121 / 82; Pulse 97; Resp 18; Pulse Ox 97% on R/A; tl4 17:30 BP 122 / 73; Pulse 100; Resp 18; Pulse Ox 96% ; tl4 20:15 BP 129 / 82; Pulse 108; Resp 18; Pulse Ox 99% ; tl4 Hollis Coma Score: 16:00 Eye Response: spontaneous(4). Motor Response: obeys commands(6). Verbal Response: tl4 oriented(5). Total: 15. MDM: 15:15 Patient medically screened. ms3 18:20 Differential diagnosis: cholecystitis, Cholelithiasis, diverticulitis, non-specific abd ms3 pain. Data reviewed: vital signs, nurses notes, lab test result(s), radiologic studies, and as a result, I will admit patient. Consideration of Admission/Observation Patient was admitted/placed on observation. Management of patient was discussed with the following: Hospitalist: Dr. Yu. I considered the following discharge prescriptions or medication management in the emergency department Medications were administered in the Emergency Department. See MAR. Historians other than the Patient: Spouse/Significant Other: Patient's . Counseling: I had a detailed discussion with the patient and/or guardian regarding the historical points, exam findings, and any diagnostic results supporting the discharge/admit diagnosis, lab results, radiology results, the need for further work-up and treatment in the hospital. ED course: Patient seen by Dr. Yu in the emergency department. He would like patient placed in observation for consultation with Dr. Montero regarding femoral hernia. Discussed plan with patient and his . Patient and his do not wish for CPR to be performed in the event patient's heart stops. On admission patient made DNR. 05/25 15:15 Order name: CBC with Diff; Complete Time: 17:21 ms3 05/25 15:15 Order name: CMP; Complete Time: 17:21 ms3 05/25 15:15 Order name: Lipase; Complete Time: 17:21 ms3 05/25 15:21 Order name: Urinalysis w/ reflexes; Complete Time: 17:21 ms3 05/25 18:20 Order name: CBC with Automated Diff EDMS 05/25 18:20 Order name: CBC with Automated Diff EDMS 05/25 18:20 Order name: Comprehensive Metabolic Panel EDMS 05/25 18:20 Order name: Comprehensive Metabolic Panel EDMS 05/25 15:21 Order name: CT Abd/Pelvis - IV Contrast Only; Complete Time: 17:38 ms3 05/25 18:20 Order name: CONS Physician Consult EDMS 05/25 15:15 Order name: IV Saline Lock; Complete Time: 15:32 ms3 05/25 15:15 Order name: Labs collected and sent; Complete Time: 15:32 ms3 Administered Medications: 18:00 Drug: Pantoprazole IVP 40 mg IVP once Route: IVP; Site: left antecubital; tl4 18:16 Follow up: Response: No adverse reaction tl4 Disposition Summary: 05/26/23 18:10 Hospitalization Ordered Notes: Hospitalization Status: Observation ms3 Provider: Edwardo Yu ms3 Location: Telemetry/[facility] (observation) ms3 Condition: Stable ms3 Problem: new ms3 Symptoms: are unchanged ms3 Bed/Room Type: Standard ms3 Room Assignment: 202(05/26/23 20:24) kmf Diagnosis - Lower abdominal pain, unspecified ms3 Forms: - Medication Reconciliation Form ms3 - SBAR form ms3 - Leadership Thank You Letter ms3 Signatures: Dispatcher [employer] Мария Christiansen RN RN iw Sims, Marcus, DO DO ms3 Kaia Otoole kmf Coleman Monge RN RN tl4 Corrections: (The following items were deleted from the chart) 20: 18:10 ms3 kmf
--- NOTE | 2023-05-26 18:12 | ER ---
Nurse's Notes [facility] Name: Ranulfo Chao Age: 87 yrs Sex: Male : 1935 Arrival Date: 05/26/2023 Time: 14:35 Bed 11 Private MD: Edwardo Yu V Diagnosis: Lower abdominal pain, unspecified Presentation: 05/25 15:17 Chief complaint: Patient states: LLQ pain for a long time. Coronavirus screen: At this iw time, the client does not indicate any symptoms associated with coronavirus-19. Ebola Screen: Patient negative for fever greater than or equal to 101.5 degrees Fahrenheit, and additional compatible Ebola Virus Disease symptoms Patient denies exposure to infectious person. Patient denies travel to an Ebola-affected area in the 21 days before illness onset. No symptoms or risks identified at this time. Initial Sepsis Screen: Does the patient meet any 2 criteria? No. Patient's initial sepsis screen is negative. Does the patient have a suspected source of infection? No. Patient's initial sepsis screen is negative. Risk Assessment: Do you want to hurt yourself or someone else? Patient reports no desire to harm self or others. 15:17 Method Of Arrival: Wheelchair iw 15:17 Acuity: SABINE 3 iw 16:42 Onset of symptoms is unknown. tl4 Historical: - Allergies: 15:17 Codeine; iw 15:17 Influenza Virus Vaccines; iw 15:17 Levaquin; iw - Home Meds: 18:17 gabapentin 600 mg oral tablet 3 times per day [Active]; tamsulosin 0.4 mg oral capsule tl4 1 cap daily [Active]; duloxetine 30 mg oral capsule,delayed release (e.c.) 1 cap daily [Active]; nitrofurantoin macrocrystal 100 mg Oral capsule 1 cap every 12 hours [Active]; ketorolac 10 mg Oral tablet 1 tab every 6 hours [Active]; oxybutynin chloride 5 mg Oral Tablet, Extended Release 24 hr 1 tab daily [Active]; Eliquis 2.5 mg oral tablet 1 tab daily [Active]; rosuvastatin 20 mg oral tablet 1 tab daily [Active]; brimonidine 0.2 % ophthalmic (eye) drops 1 drop twice a day [Active]; - PMHx: 15:17 BPH; guillian barre; High Cholesterol; Hypertension; 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 - Social history:: Smoking status: Patient denies any tobacco usage or history of. Screenin:32 [facility] ED Fall Risk Assessment (Adult) History of falling in the last 3 months, iw including since admission Yes- single mechanical fall (1 pt) Confusion or Disorientation No (0 pts) Intoxicated or Sedated No (0 pts) Impaired Gait Yes (1 pt) Mobility Assist Device Used Yes (1 pt) Altered Elimination No (0 pt) Score/Fall Risk Level 3 or more points = High Risk. Abuse screen: Denies threats or abuse. Denies injuries from another. Nutritional screening: No deficits noted. Tuberculosis screening: No symptoms or risk factors identified. Assessment: 15:32 General: Appears in no apparent distress. Behavior is calm, cooperative. Pain: iw Complains of pain in left upper quadrant and left lower quadrant. Neuro: Level of Consciousness is awake, alert, obeys commands, Oriented to person, place, situation, Moves all extremities. Full function. Cardiovascular: Patient's skin is warm and dry. Respiratory: Respiratory effort is even, unlabored, Respiratory pattern is regular. Derm: Skin is fragile, is thin, Skin is pink, warm \T\ dry. 16:39 Reassessment: No changes from previously documented assessment. Patient and/or family tl4 updated on plan of care and expected duration. Pain level reassessed. Patient is alert, oriented x 3, equal unlabored respirations, skin warm/dry/pink. 17:52 Reassessment: No changes from previously documented assessment. Patient and/or family tl4 updated on plan of care and expected duration. Pain level reassessed. Patient is alert, oriented x 3, equal unlabored respirations, skin warm/dry/pink. 18:12 Reassessment: No changes from previously documented assessment. Patient and/or family tl4 updated on plan of care and expected duration. Pain level reassessed. Patient is alert, oriented x 3, equal unlabored respirations, skin warm/dry/pink. 19:03 Reassessment: No changes from previously documented assessment. Patient and/or family tl4 updated on plan of care and expected duration. Pain level reassessed. Patient is alert, oriented x 3, equal unlabored respirations, skin warm/dry/pink. 21:36 Reassessment: No changes from previously documented assessment. Patient and/or family tl4 updated on plan of care and expected duration. Pain level reassessed. Patient is alert, oriented x 3, equal unlabored respirations, skin warm/dry/pink. 21:36 Reassessment: 2nd floor state they are ready for patient. tl4 Vital Signs: 15:18 BP 125 / 70; Pulse 104; Resp 18; Pulse Ox 94% on R/A; iw 16:00 BP 121 / 75; Pulse 104; Resp 17; Pulse Ox 96% on R/A; tl4 16:30 BP 120 / 68; Pulse 99; Resp 18; Pulse Ox 97% on R/A; tl4 17:00 BP 121 / 82; Pulse 97; Resp 18; Pulse Ox 97% on R/A; tl4 17:30 BP 122 / 73; Pulse 100; Resp 18; Pulse Ox 96% ; tl4 20:15 BP 129 / 82; Pulse 108; Resp 18; Pulse Ox 99% ; tl4 Hollis Coma Score: 16:00 Eye Response: spontaneous(4). Motor Response: obeys commands(6). Verbal Response: tl4 oriented(5). Total: 15. ED Course: 14:39 Patient arrived in ED. mr 14:39 Edwardo Yu MD is Private Physician. mr 14:41 Gerardo Dodson DO is Attending Physician. ms3 15:18 Triage completed. iw 15:32 Initial lab(s) drawn, by sd, sent to lab. Inserted saline lock: 22 gauge in right iw antecubital area, using aseptic technique. Blood collected. 15:32 Missed attempt(s): 22 gauge in left hand. Bleeding controlled, band aid applied, iw catheter tip intact. 15:33 Patient has correct armband on for positive identification. Provided Education on: . iw 15:53 Coleman Monge, DAVIAN is Primary Nurse. tl4 15:54 CMP Sent. tl4 15:54 Lipase Sent. tl4 16:39 Urinalysis w/ reflexes Sent. tl4 16:40 No provider procedures requiring assistance completed. tl4 16:40 Client placed on continuous cardiac and pulse oximetry monitoring. NIBP monitoring tl4 applied. Door closed. Noise minimized. Lights dimmed. Moved to private room. Warm blanket given. Pillow given. 16:42 Arm band placed on Patient placed in an exam room, on a stretcher. tl4 16:48 CT Abd/Pelvis - IV Contrast Only In Process Unspecified. EDMS 17:56 Warm blanket given. tl4 18:10 Edwardo Yu MD is Hospitalizing Provider. ms3 20:24 Diet: Patient given snack. Pt given turkey sandwich, baked chips an lizy connor.. tl4 20:25 Placed in gown. Bed in low position. Call light in reach. Side rails up X 1. tl4 21:48 Patient admitted, IV remains in place. tl4 Administered Medications: 18:00 Drug: Pantoprazole IVP 40 mg IVP once Route: IVP; Site: left antecubital; tl4 18:16 Follow up: Response: No adverse reaction tl4 Medication: 15:32 VIS not applicable for this client. iw Outcome: 18:10 Decision to Hospitalize by Provider. ms3 21:47 Admitted to Med/surg accompanied by nurse, via wheelchair, room 202, with chart, Report tl4 called to Parag 21:47 Condition: stable 21:47 Instructed on the need for admit, 22:04 Patient left the ED. tl4 Signatures: Dispatcher [employer] EDND Porsha Gilliam, Reg Reg mr Мария Tucker, RN RN iw Gerardo Dodson, DO ms3 Coleman Monge, RN RN tl4 Corrections: (The following items were deleted from the chart) 18:16 16:39 BP 121 / 75; Pulse 104bpm; Resp 17bpm; Pulse Ox 96% RA; tl4 tl4 18:16 16:39 GCS: 15, tl4 tl4
[2023-05-26] MEDS ORDERED: ONDANSETRON 4 MG/2 ML VIAL IV PRN (18:13)
--- NOTE | 2023-05-26 21:39 | P.HP ---
Patient History Date of Service: 05/26/23 Reason for admission: ABDOMEN PAIN History of Present Illness: ANDREW HAS HAD ABDOMEN PAIN LLQ FOR LAST MONTH OR SO. HE COMES TO ER,GETS CT SCANS AND GOES HOME. HE HAS SEEN UROLOIGST AND HAD RETENTION OF URINE BUT HE COULD NOT TOLERATE LOAIZA. HE IS BACK IN ER. THIS IS THE FIRST TIME I SEE HIM HERE FOR THE PAIN. I ASKED HIM TO POINT THE LOCATION OF PAIN AND HE POINTED TO ARE JUST ABOVE L ING LIGAMENT ABOUT HALF WAY TO ITS LENGTH. I ASED IF ANY OTHER PLACES AND HE SAYS THAT IS THE ONLY LOCATION. HE HAS NO NAUSEA, VOMITING OR DIARRHEA. HE HAS NO UTI SS. Allergies levofloxacin [From Levaquin] Allergy (Verified 05/13/23 07:12) Hives/Rash Penicillins Allergy (Verified 05/13/23 07:12) Itching codeine [Codeine] Adverse Reaction (Intermediate, Verified 05/13/23 07:12) Itching INFLUENZA VIRUS VACCINES Allergy (Uncoded 05/13/23 07:12) Unknown Home Medications: Tamsulosin [Flomax*] 0.4 mg PO DAILY cap 03/26/18 Duloxetine HCl 30 mg PO DAILY 07/13/22 Gabapentin [Neurontin*] 600 mg PO BID 07/24/22 Cyclosporine [Restasis] 1 drop EACH EYE BID 07/25/22 Finasteride [Proscar] 5 mg PO DAILY 07/25/22 Apixaban [Eliquis] 2.5 mg PO BID 04/30/23 Brimonidine Tartrate 5 ml OP BID 04/30/23 Instaflex 1 tab PO DAILY 04/30/23 Metoprolol Tartrate [Lopressor*] 25 mg PO BID 04/30/23 Nystatin Powder [Mycostatin (Powder)*] 15 gm TP DAILY 04/30/23 traMADol HCL [Ultram*] 50 mg PO Q6H PRN 04/30/23 Ketorolac [Toradol*] 10 mg PO Q6H PRN #20 tab 05/13/23 - Past Medical/Surgical History Diabetic: No -: Hx of Guillain [place] -: Coronary artery disease -: Neck pain -: Atrial Fibrillation -: CHRONIC BACK PAIN -: VERTEBRAL COMPRESSION -: HTN -: HLD -: BPH -: Stents placed in his heart -: neck surgery -: both shoulder surgery -: back surgery 2018 -: cataract surgery cesar Psychosocial/ Personal History: Pt lives at home with his - Family History Father -: Stroke Mother -: Lung disease Notes: osteoporosis Brother -: Heart disease, Lung disease - Social History Alcohol use: No CD- Drugs: No Caffeine use: No Review of Systems 10-point ROS is otherwise unremarkable General: Weakness, As per HPI Physical Examination - Physical Exam General: Oriented x3, Moderate distress HEENT: Atraumatic, PERRLA, Mucous membr. moist/pink, EOMI, Sclerae nonicteric Neck: Supple, 2+ carotid pulse no bruit, No LAD, Without JVD or thyroid abnormality Respiratory: Clear to auscultation bilaterally, Normal air movement Cardiovascular: Regular rate/rhythm, Normal S1 S2 Gastrointestinal: Normal bowel sounds, No tenderness, Tenderness (L SIDE ABOVE NOTED REGION.) Musculoskeletal: No tenderness Integumentary: No rashes Neurological: Normal gait, Normal speech, Normal strength at 5/5 x4 extr, Normal tone, Normal affect Lymphatics: No axilla or inguinal lymphadenopathy - Studies Laboratory Data (last 24 hrs) 05/26/23 05/26/23 15:29 15:29 WBC 9.90 Hgb 10.7 L Hct 32.2 L Plt Count 389 Sodium 137 Potassium 4.1 BUN 43 H Creatinine 1.31 H Glucose 121 H Total Bilirubin 0.3 AST 28 ALT 25 Alkaline Phosphatase 103 Lipase 59 Assessment and Plan - Problems (Diagnosis) (1) Abdominal pain, LLQ Current Visit: Yes Status: Acute Plan: SUBACUTE FOR A MONHT I FEEL HE MAY HAVE SMALL FEMORAL HERNIA THAT MAY BE INVISIBLE ON CT SCAN HE HAS A BULGE THAT IS TENDER I CALLED IN DR. ANDUJAR. (2) CKD (chronic kidney disease) stage 2, GFR 60-89 ml/min Current Visit: Yes Status: Chronic (3) A-fib Current Visit: No Status: Chronic Plan: CONT MEDS. SEE DR. BILLS - Advance Directives Does patient have a Living Will: No Does patient have a Durable POA for Healthcare: No
[2023-05-26 22:40] VITALS: BMI 23.6
[2023-05-26] MEDS: ACETAMINOPHEN 500 MG TAB PO PRN (23:07)
[2023-05-27 03:58] LABS: Absolute Basophils 0.1 K/uL (0-0.5); Absolute Eosinophils 0.4 K/uL (0-0.5); Absolute Lymphocytes (CBC) 2.6 K/uL (0.7-4.9); Absolute Monocytes 0.8 K/uL (0.1-1.3); Absolute Neutrophil 7.4 K/uL (1.8-8.0); Basophils % 1.1 % (0-1.3); Eosinophils % 3.7 % (0-4.4); Hematocrit 29.7 % (39.6-49.0); Hemoglobin 9.8 g/dL (13.6-17.9); Lymphocytes % 22.8 % (15.3-44.8); MCH 27.1 pg (27.0-35.0); MPV 8.2 fL (7.6-11.3); Monocytes % 6.7 % (3.3-12.3); Neutrophils % 65.7 % (41.7-73.7); Nucleated Red Blood Cells % 0.1 % (0-0); Platelets 382 thou/uL (152-406); RBC Red Blood Cell Count 3.62 M/uL (4.33-5.43); Red Cell Distribution Width 14.4 % (12.1-15.2)
[2023-05-27 04:21] LABS: Albumin 3.3 g/dL (3.4-5.0); Albumin/Globulin Ratio 0.9 (1.1-1.8); Anion Gap 10.5 mEq/L (5.0-15.0); Bilirubin Total 0.5 mg/dL (0.2-1.0); Globulin 3.6 g/dL (2.3-3.5); Potassium 4.5 mEq/L (3.5-5.1); Protein, Total 6.9 g/dL (6.4-8.2)
[2023-05-27] MEDS ORDERED: CEFAZOLIN SODIUM 2 GM in NA CHLORIDE 0.9% 100 ML IVPB SCH (11:00)
--- NOTE | 2023-05-27 11:14 | CON ---
Date of Consultation: 05/27/2023 Reason For Consultation: Left groin pain. History Of Present Illness: The patient is an 87-year-old gentleman, who presented to the emergency room with approximately 6-week history of left inguinal region pain associated with mild radiation to wards the left testicle. He denies any nausea, vomiting. He does have diarrhea occasionally. No co nstipation. No blood in his stool. No dysuria, hematuria. Pain is intermittent in nature. However , recently it has gotten worse. The patient of note has history of Guillain-[place] and he does have s ome nerve issue that is being managed by a neurologist, but the patient states that this is something new and does not appear to be associated with that syndrome. Review of Systems: No sore throat, runny nose, cough, headaches, or dizziness. No chest pain. No fever or chills. Rev iew of systems unremarkable. Medical History: Significant history of Guillain-[place], coronary artery disease, atrial fibrillation , chronic back pain, hypertension, hyperlipidemia, BPH. Past Surgical History: Significant for cardiac stents, neck surgery, shoulder surgery, back surgery, cataract surgery. Allergies: INCLUDE PENICILLIN, LEVAQUIN. Medications: Reviewed. The patient is on Eliquis for his atrial fibrillation. Family History: Noncontributory. Physical Examination: Vital Signs: Stable. He is currently afebrile. His heart rate is 99. General: He is awake, alert, oriented x3. Head and Neck: No masses. Chest: Clear. Heart: S1, S2. Abdomen: Soft. Extremities: Neurovascularly intact. Neuro: Nonfocal. : Reveals normal penis and testicles. The patient does have a small left inguinal hernia. Laboratory Data: Reviewed. He has slight leukocytosis with no left shift. Chemistry reviewed, esse ntially unremarkable. Urinalysis is reviewed. Assessment: An 87-year-old gentleman with multiple medical problems with left groin pain, likely sec ondary to left inguinal hernia, which was seen on the CAT scan. Although the patient could have some component of Guillain-[place] syndrome pain, we will proceed with holding his Eliquis today and then r epair of his left inguinal hernia tomorrow. The patient and understand risks, benefits, and alt ernatives and agreed to procedure. Plan of care discussed with Dr. Yu. /MODL Voice ID: [id number] Report ID: [id number]
--- NOTE | 2023-05-27 21:43 | P.PN ---
Subjective Date of Service: 05/27/23 Chief Complaint: ABDOMEN PAIN Subjective: No new changes HE CONTINUES TO HAVE SEVERE PAIN LLQ. Review of Systems 10-point ROS is otherwise unremarkable Physical Examination - Vital Signs Temperature: 97.2 F Blood Pressure: 116/68 Pulse: 90 Respirations: 18 Pulse Ox (%): 92 - Physical Exam General: Moderate distress HEENT: Atraumatic, PERRLA, EOMI Neck: Supple, JVD not distended Respiratory: Clear to auscultation bilaterally, Normal air movement Cardiovascular: Regular rate/rhythm, Normal S1 S2 Gastrointestinal: Normal bowel sounds, No tenderness, Tenderness (ABOVE L MID ING LIGAMENT. BULGE IS THERE.) Musculoskeletal: No tenderness Integumentary: No rashes Neurological: Normal speech, Normal tone, Normal affect Lymphatics: No axilla or inguinal lymphadenopathy - Studies Laboratory Data (last 24 hrs) 05/27/23 05/27/23 03:13 03:13 WBC 11.30 H Hgb 9.8 L D Hct 29.7 L Plt Count 382 Sodium 138 Potassium 4.5 BUN 40 H Creatinine 1.16 Glucose 101 Total Bilirubin 0.5 AST 20 ALT 22 Alkaline Phosphatase 101 Medications List Reviewed: Yes Assessment And Plan - Current Problems (Diagnosis) (1) Abdominal pain, LLQ Current Visit: Yes Status: Acute Plan: SUBACUTE FOR A MONHT I FEEL HE MAY HAVE SMALL FEMORAL HERNIA THAT MAY BE INVISIBLE ON CT SCAN HE HAS A BULGE THAT IS TENDER I CALLED IN DR. ANDUJAR. DR. ANUDJAR AGREES THAT HE HAS INGUINAL HERNIA THAT IS NOT REPORTED ON CT SCAN HE LATER CALLED RADIOLOGIST AND HAD AMENDED THE REPORT. SURGERY IN [facility]. (2) CKD (chronic kidney disease) stage 2, GFR 60-89 ml/min Current Visit: Yes Status: Chronic (3) A-fib Current Visit: No Status: Chronic Plan: CONT MEDS. SEE DR. BILLS
[2023-05-27] MEDS: GABAPENTIN 300 MG CAP PO SCH (22:00)
[2023-05-28] MEDS: Ringers Lactate 1,000 ML IV ONE (07:22)
[2023-05-28] MEDS ORDERED: ONDANSETRON 4 MG/2 ML VIAL ONE (09:15)
[2023-05-28] MEDS ORDERED: LIDOCAINE 2% MPF 5 ML VIAL ONE (09:15)
[2023-05-28] MEDS ORDERED: ROCURONIUM 50 MG/5 ML VIAL IV ONE (09:15)
[2023-05-28] MEDS ORDERED: propofoL 200 MG/20 ML VIAL IV ONE (09:15)
[2023-05-28] MEDS ORDERED: FENTANYL CITR 100 MCG/2 ML ONE (09:15)
[2023-05-28] MEDS ORDERED: EPHEDRINE SULF 50 MG/ML VIAL ONE (09:38)
[2023-05-28] MEDS: BUPIVACAINE 0.5% PF 10 ML VIAL ONE (09:43)
[2023-05-28] MEDS: CEFAZOLIN SODIUM 2 GM/VIAL ONE (09:45)
[2023-05-28] MEDS ORDERED: NEOSTIGMINE 1 MG/ML -10 ML VIAL ONE (10:08)
[2023-05-28] MEDS ORDERED: GLYCOPYRROLATE 0.2 MG/ML SYR ONE ×2 (10:08)
[2023-05-28] MEDS ORDERED: Mastisol Adhesive Liq ONE (10:09)
--- NOTE | 2023-05-28 10:19 | P.OP ---
Date of Service: 05/28/23 Preop diagnosis: Left inguinal hernia Postop diagnosis: Same Procedure performed: Repair of left inguinal hernia Surgeon: Rajat Montero MD Internet Assessor: Leela FULLER Estimated blood loss: Minimal Specimen: Hernia sac and contents Findings: As above Anesthesia: General Complications: None Drains: None Fluids and blood products: Nonapplicable Disposition: Recovery room Operative note: Patient brought to the OR and placed in supine position. General anesthesia begun. Patient prepped and draped in the usual sterile fas hion. Marcaine 0.5% infiltrated in a field block fashion for postop pain control. Then 15 blade used to make a 4 cm incision between the left pubic tubercle and the anterior iliac superior spine. Subcutaneous tissue divided. Lele's fascia identified and divided. Aponeurosis of the external abdominal oblique muscle identified and mobilized inferiorly. The aponeurosis opened through the external ring. Ilioinguinal nerve identified and retracted out of the field of dissection. Cord mobilized at the pubic tubercle and skeletonized. Large cord lipoma and hernia sac identified. High ligation with 2-0 Prolene suture ligature and freehand tie done. Hernia sac and lipoma excised and sent to pathology as specimen. Marlex mesh plug placed in the internal ring and secured with VersaTack stapler. Onlay mesh placed in the inguinal floor and secured with VersaTack stapler medially to the pubic tubercle, superior to the conjoined tendon, inferior to the shelving edge and laterally to each other. Cord structures placed back in anatomic location. 2-0 Prolene used to close the aponeurosis of the external abdominal bleak muscle. 3-0 chromic used to approximate Lele's fascia and close skin. Sterile dressing applied. Patient awakened and taken to recovery room in good general condition. CC: Dr. Yu's office
[2023-05-28] MEDS: LABETALOL 20 MG/4ML SYRINGE IV ONE (10:36)
[2023-05-28] MEDS: HYDROCODONE/APAP 5/325 MG TAB PO PRN (15:08)
[2023-05-28] MEDS: HYDROMORPHONE HCL 0.5 MG/0.5 ML INJ IV PRN (15:55)
[2023-05-28] MEDS: CEFAZOLIN 1 GM in NA CHLORIDE 0.9% 50 ML IVPB SCH (16:51)
--- NOTE | 2023-05-28 21:29 | P.PN ---
Subjective Date of Service: 05/28/23 Chief Complaint: ABDOMEN PAIN Subjective: Improving HE CONTINUES TO HAVE SEVERE PAIN LLQ. DR ANDUJAR DID SURGERY HE FOUND SMALL FAT TISSUE FILLED INGUINAL HERNIA THAT HE REDUCE AND REPAIRED. Review of Systems is unable to be obtained Physical Examination - Vital Signs Temperature: 98.2 F Blood Pressure: 114/66 Pulse: 112 Respirations: 18 Pulse Ox (%): 98 - Physical Exam General: Oriented x2, Mild distress HEENT: Atraumatic, PERRLA, EOMI Neck: Supple, JVD not distended Respiratory: Clear to auscultation bilaterally, Normal air movement Cardiovascular: Regular rate/rhythm, Normal S1 S2 Gastrointestinal: Normal bowel sounds, No tenderness Musculoskeletal: No tenderness Integumentary: No rashes Neurological: Normal speech, Normal tone, Normal affect Lymphatics: No axilla or inguinal lymphadenopathy - Studies Medications List Reviewed: Yes Assessment And Plan - Current Problems (Diagnosis) (1) Abdominal pain, LLQ Current Visit: Yes Status: Acute Plan: SUBACUTE FOR A MONHT I FEEL HE MAY HAVE SMALL FEMORAL HERNIA THAT MAY BE INVISIBLE ON CT SCAN HE HAS A BULGE THAT IS TENDER I CALLED IN DR. ANDUJAR. DR. ANDUJAR AGREES THAT HE HAS INGUINAL HERNIA THAT IS NOT REPORTED ON CT SCAN HE LATER CALLED RADIOLOGIST AND HAD AMENDED THE REPORT. SURGERY IN [facility]. [facility]. SP INCARCERATED SMALL INGUINAL HERNIA. NECROTIC FAT LAYER IN IT CAUSED THE PAIN. (2) CKD (chronic kidney disease) stage 2, GFR 60-89 ml/min Current Visit: Yes Status: Chronic (3) A-fib Current Visit: No Status: Chronic Plan: CONT MEDS. SEE DR. BILLS
--- NOTE | 2023-05-29 09:49 | PN ---
Date of Progress Note: 05/29/2023 Subjective: The patient is awake, alert, complaining of some incisional pain. Objective: Vitals: Stable. Afebrile. Wound: Dressing is clean, dry, intact. Assessment: Status post left inguinal hernia repair. Recommendations: The patient is being evaluated for inpatient rehab. If that does not occur, then sandrita amaya may require temporary stay at a detention while he recovers. From a surgical standpoint, valerie saldana is doing well. We will sign off the case and please re-consult surgery p.r.n. He will follow up w jovon vidal in the office upon discharge. All of his sutures are absorbable and dressing orders have been written on the discharge plan. /MODL Voice ID: [id number] Report ID: [id number]
--- NOTE | 2023-05-29 13:25 | P.PN ---
Subjective Date of Service: 05/29/23 Chief Complaint: ABDOMEN PAIN Subjective: Improving HE CONTINUES TO HAVE SEVERE PAIN LLQ. DR ANDUJAR DID SURGERY HE FOUND SMALL FAT TISSUE FILLED INGUINAL HERNIA THAT HE REDUCE AND REPAIRED. PAIN IN LLQ IS BETTER BUT NOW HAS PAIN ALL OVER THIS IS HIS USUAL COMPLAINT. Review of Systems 10-point ROS is otherwise unremarkable General: Weakness Physical Examination - Vital Signs Temperature: 99 F Blood Pressure: 109/58 Pulse: 118 Respirations: 18 Pulse Ox (%): 92 - Physical Exam General: Cachectic, Mild distress, Moderate distress HEENT: Atraumatic, PERRLA, EOMI Neck: Supple, JVD not distended Respiratory: Clear to auscultation bilaterally, Normal air movement Cardiovascular: Regular rate/rhythm, Normal S1 S2 Gastrointestinal: Normal bowel sounds, No tenderness Musculoskeletal: No tenderness Integumentary: No rashes Neurological: Normal speech, Normal tone, Normal affect Lymphatics: No axilla or inguinal lymphadenopathy - Studies Medications List Reviewed: Yes Assessment And Plan - Current Problems (Diagnosis) (1) Abdominal pain, LLQ Current Visit: Yes Status: Acute Plan: SUBACUTE FOR A MONHT I FEEL HE MAY HAVE SMALL FEMORAL HERNIA THAT MAY BE INVISIBLE ON CT SCAN HE HAS A BULGE THAT IS TENDER I CALLED IN DR. ANDUJAR. DR. ANDUJAR AGREES THAT HE HAS INGUINAL HERNIA THAT IS NOT REPORTED ON CT SCAN HE LATER CALLED RADIOLOGIST AND HAD AMENDED THE REPORT. SURGERY IN [facility]. [facility]. SP INCARCERATED SMALL INGUINAL HERNIA. NECROTIC FAT LAYER IN IT CAUSED THE PAIN. (2) CKD (chronic kidney disease) stage 2, GFR 60-89 ml/min Current Visit: Yes Status: Chronic (3) A-fib Current Visit: No Status: Chronic Plan: CONT MEDS. SEE DR. BILLS (4) PMR (polymyalgia rheumatica) Current Visit: Yes Status: Acute Plan: POSSIBLE CHECK CRP MAY TRY STEROIDS ORALLY.
[2023-05-29 14:15] LABS: Absolute Basophils 0.2 K/uL (0-0.5); Absolute Eosinophils 0.2 K/uL (0-0.5); Absolute Lymphocytes (CBC) 2.1 K/uL (0.7-4.9); Absolute Neutrophil 8.6 K/uL (1.8-8.0); Basophils % 1.3 % (0-1.3); Eosinophils % 1.8 % (0-4.4); Hematocrit 28.9 % (39.6-49.0); Hemoglobin 9.5 g/dL (13.6-17.9); Lymphocytes % 17.4 % (15.3-44.8); MCH 26.9 pg (27.0-35.0); MCHC 32.6 g/dL (32.0-36.0); MCV 82.2 fL (80-100); MPV 8.6 fL (7.6-11.3); Monocytes % 8.2 % (3.3-12.3); Neutrophils % 71.3 % (41.7-73.7); Nucleated Red Blood Cells % 0.1 % (0-0); Platelets 324 thou/uL (152-406); RBC Red Blood Cell Count 3.52 M/uL (4.33-5.43); Red Cell Distribution Width 14.9 % (12.1-15.2)
[2023-05-29 14:35] LABS: Anion Gap 8.1 mEq/L (5.0-15.0); C-Reactive Protein 88.8 mg/L (<3.00); Potassium 4.1 mEq/L (3.5-5.1)
[2023-05-29] MEDS: TRAMADOL HCL 50 MG TAB PO PRN (16:23)
[2023-05-29] MEDS: NACHLORIDE 0.45% 1,000 ML IV SCH (22:10)
[2023-05-30] MEDS: predniSONE 20 MG TAB PO SCH (07:43)
[2023-05-30] MEDS: DIPHENHYDRAMINE 25 MG TAB/CAP PO PRN (11:41)
[2023-05-30 23:20] VITALS: O2SAT 92
--- NOTE | 2023-05-31 18:18 | P.DS ---
Admission Date: 05/27/23 Discharge Date: 05/31/23 Disposition: TRANSFER TO INPATIENT REHAB Discharge Condition: GOOD Reason for Admission: ABDOMEN PAIN Brief History of Present Illness: Diagnosis LLQ abdominal pain CKD stage 2 GFR 60-89ml/min Atrial fibrillation Polymyalgia rheumatica HPI 05/26/23 ANDREW HAS HAD ABDOMEN PAIN LLQ FOR LAST MONTH OR SO. HE COMES TO ER,GETS CT SCANS AND GOES HOME. HE HAS SEEN UROLOIGST AND HAD RETENTION OF URINE BUT HE COULD NOT TOLERATE LOAIZA. HE IS BACK IN ER. THIS IS THE FIRST TIME I SEE HIM HERE FOR THE PAIN. I ASKED HIM TO POINT THE LOCATION OF PAIN AND HE POINTED TO ARE JUST ABOVE L ING LIGAMENT ABOUT HALF WAY TO ITS LENGTH. I ASED IF ANY OTHER PLACES AND HE SAYS THAT IS THE ONLY LOCATION. HE HAS NO NAUSEA, VOMITING OR DIARRHEA. HE HAS NO UTI SS. Hospital Course: Ranulfo is a pleasant 87 year old male with a past medical history significant for CKD, PMR, BPH who was admitted to the [facility] on 05/26/23 for LLQ abdominal pain. ranulfo presented to the ED with chief complaint of LLQ abdominal pain. Dr. Yu examined him and discovered the pain was located in his left inguinal area. He consulted Dr. Montero for further evaluation. Dr. Montero reviewed the imaging and examined Ranulfo finding evidence of a Left inguinal hernia. Surgery was performed 05/28/23. Ranulfo tolerated the procedure well and his pain was improved. He was then evaluated by Physical therapy with recommendation to inpatient rehab. Ranulfo has tolerated a PO diet, ambulating with physical therapy, and hemodynamically stable for discharge. On 05/31/23, Ranulfo was seen on morning rounds and deemed medically stable for discharge. Ranulfo was discharged to inpatient rehab with instructions to schedule follow-up appointments with PCP and Dr. Montero . Ranulfo was provided prescriptions for prednisone. The patient and family members were given the opportunity to ask questions and reported no further questions. Furthermore, all questions were answered to the best of my ability. A copy of this discharge summary will be sent to the above providers to facilitate continuity of care. Today, I personally spent 50 minutes with Ranulfo and his , of which greater than 50% of the time was spent in patient education, counseling, and coordination of care as described above. Physical Exam General: Cachectic, Calm, NAD, Alert and oriented x1 HEENT: Atraumatic, PERRLA, EOMI Neck: Supple, JVD not distended Respiratory: Clear to auscultation bilaterally, Symmetrical chest wall movement Cardiovascular: Regular rate/rhythm, Normal S1 S2 Gastrointestinal: Soft on palpation, NT/ND, bowel sounds present Musculoskeletal: No tenderness Integumentary: No rashes Neurological: Normal speech, Normal tone, Normal affect, dementia noted Lymphatics: No axilla or inguinal lymphadenopathy Vital Signs/Physical Exam: Temp Pulse Resp BP Pulse Ox 97.1 F 97 H 16 132/76 97 05/31/23 12:00 05/31/23 12:00 05/31/23 12:00 05/31/23 12:00 05/31/23 12:00 Laboratory Data at Discharge: WBC 12.10 thou/uL (4.3-10.9) H 05/29/23 13:49 Hgb 9.5 g/dL (13.6-17.9) L 05/29/23 13:49 Hct 28.9 % (39.6-49.0) L 05/29/23 13:49 Plt Count 324 thou/uL (152-406) 05/29/23 13:49 Sodium 134 mEq/L (136-145) L 05/29/23 13:49 Potassium 4.1 mEq/L (3.5-5.1) 05/29/23 13:49 BUN 32 mg/dL (7-18) H 05/29/23 13:49 Creatinine 1.53 mg/dL (0.70-1.30) H 05/29/23 13:49 Glucose 186 mg/dL (74-106) H 05/29/23 13:49 Total Bilirubin 0.5 mg/dL (0.2-1.0) 05/27/23 03:13 AST 20 U/L (15-37) 05/27/23 03:13 ALT 22 U/L (16-61) 05/27/23 03:13 Alkaline Phosphatase 101 U/L (45-117) 05/27/23 03:13 Lipase 59 U/L (13-75) 05/26/23 15:29 Home Medications: Tamsulosin [Flomax*] 0.4 mg PO DAILY cap 03/26/18 Duloxetine HCl 30 mg PO DAILY 07/13/22 Gabapentin [Neurontin*] 600 mg PO BID 07/24/22 Cyclosporine [Restasis] 1 drop EACH EYE BID 07/25/22 Finasteride [Proscar] 5 mg PO DAILY 07/25/22 Apixaban [Eliquis] 2.5 mg PO BID 04/30/23 Brimonidine Tartrate 5 ml OP BID 04/30/23 Instaflex 1 tab PO DAILY 04/30/23 Metoprolol Tartrate [Lopressor*] 25 mg PO BID 04/30/23 traMADol HCL [Ultram*] 50 mg PO Q6H PRN 04/30/23 Oxybutynin Chloride [Oxybutynin Chloride ER] 5 mg PO DAILY 05/27/23 Rosuvastatin Calcium 20 mg PO DAILY 05/27/23 predniSONE [Prednisone*] 10 mg PO DAILY 3 Days #3 tab 05/31/23 Physician Discharge Instructions: Remove outer dressing in a.m. and shower Keep Steri-Strips on at all times Incentive spirometry as instructed Resume home meds and diet May start Eliquis Pain medicine per Dr. Yu Follow-up my office 1 week, call for appointment No heavy lifting or strenuous exercise Diet: AHA Activity: No lifting more than 10 lbs Followup: Edwardo Yu MD [Primary Care Provider] - Rajat Montero MD [ACTIVE - CAN ADMIT] - 1 Week Time spent managing pt's care (in minutes): 50
[2023-05-31 18:50] VITALS: BP 127/73; TEMP 97
--- NOTE | 2023-06-02 14:31 | EKG ---
Test Date: 2023-05-29 Test Time: 14:31:56 Safety Counselor: HARI MEASUREMENT RESULTS: Intervals: Rate: 107 IA: 194 QRSD: 104 QT: 334 QTc: 445 Coy: P: 72 IA: 194 QRS: 15 T: 8 INTERPRETIVE STATEMENTS: Sinus tachycardia Possible Inferior infarct, age undetermined Abnormal ECG Compared to ECG 04/30/2023 17:39:52 Sinus rhythm no longer present First degree AV block no longer present Myocardial infarct finding still present Electronically Signed On 06-02-23 14:17:53 CDT by Blane Choudhary
== END 2023-05-31 18:44 | DRG 351 ==
LOC: ER 14:35 → ERHOLD 18:13 → 2ND 21:51 → OBSVTOIN 05-27 13:24
PROVIDERS: ADMIT Internal Medicine; ATTEND Internal Medicine
PROC: 0YQ60ZZ Repair Left Inguinal Region, Open Approach (ICD-10-PCS; principal; 2023-05-28 08:30)
DX: K40.90 Unilateral inguinal hernia, without obstruction or gangrene, not specified as recurrent (principal); I48.20 Chronic atrial fibrillation, unspecified; R64 Cachexia; I12.9 Hypertensive chronic kidney disease with stage 1 through stage 4 chronic kidney disease, or unspecified chronic kidney disease; N18.2 Chronic kidney disease, stage 2 (mild); E78.5 Hyperlipidemia, unspecified; M35.3 Polymyalgia rheumatica; G89.29 Other chronic pain; M54.9 Dorsalgia, unspecified; F03.90 Unspecified dementia, unspecified severity, without behavioral disturbance, psychotic disturbance, mood disturbance, and anxiety; I25.10 Atherosclerotic heart disease of native coronary artery without angina pectoris; N40.1 Benign prostatic hyperplasia with lower urinary tract symptoms; R33.8 Other retention of urine; Z88.5 Allergy status to narcotic agent; Z88.0 Allergy status to penicillin; Z88.7 Allergy status to serum and vaccine; Z95.5 Presence of coronary angioplasty implant and graft; Z88.1 Allergy status to other antibiotic agents; Z79.01 Long term (current) use of anticoagulants; Z68.23 Body mass index [BMI] 23.0-23.9, adult; Z79.52 Long term (current) use of systemic steroids; Z79.899 Other long term (current) drug therapy
CPT/HCPCS: 36415; 74177; 80048; 80053; 81001; 83690; 85025; 86140; 88302; 93005; 96374; 97116; 97161; 97530; 99285; C9113; G0378; J0690; J1170; J2001; J2405; J2704; J2710; J3010; J7120; J7512; Q9967

== ENCOUNTER 2023-05-30 09:17 | Inpatient (IN) | payer OTHER ==
[2023-05-31] MEDS ORDERED: ONDANSETRON 4 MG (ODT) TAB PO PRN (19:35)
[2023-05-31 19:43] VITALS: BMI 23.6
[2023-05-31] MEDS: [UNRECOGNIZED DRUG - OTHER] OPTH SCH (20:00)
[2023-05-31] MEDS: BRIMONIDINE TARTRATE OPTH SCH (20:00)
[2023-05-31] MEDS: GABAPENTIN 300 MG CAP PO SCH (20:34)
[2023-05-31] MEDS: APIXABAN 2.5 MG TABLET PO SCH (20:34)
[2023-05-31] MEDS: METOPROLOL TAR 25 MG TAB PO SCH (20:34)
[2023-05-31] MEDS: ROSUVASTATIN 10 MG TAB PO SCH (20:34)
[2023-05-31] MEDS: MELATONIN 3 MG TABLET PO PRN (21:00)
[2023-05-31 22:21] LABS: Specific Gravity 1.007 (1.005-1.030); Sqamous Epithelial <5 /HPF (None Seen); Urine Bacteria None Seen /HPF (<20); Urine Bilirubin NEGATIVE (Negative); Urine Blood Negative (Negative); Urine Clarity Clear (Clear); Urine Color Colorless (Yellow); Urine Culture Reflex Order NOT NEEDED; Urine Glucose TRACE (Negative); Urine Ketones NEGATIVE (Negative); Urine Micro Reflex YN NO BILL MICROSCOPIC; Urine Mucus Slight /HPF (None Seen); Urine Nitrite NEGATIVE (Negative); Urine Protein NEGATIVE (Negative); Urine RBC <5 /HPF (None Seen); Urine Urobilinogen Normal (Normal); Urine WBC <5 /HPF (<5); Urine pH 5.5 (5.0-7.0)
[2023-05-31] MEDS: DIPHENHYDRAMINE 25 MG TAB/CAP PO PRN (23:00)
[2023-06-01] MEDS: TRAMADOL HCL 50 MG TAB PO PRN (03:54)
[2023-06-01] MEDS ORDERED: ACETAMINOPHEN 500 MG TAB PO PRN (06:27)
[2023-06-01 07:29] LABS: Absolute Eosinophils 0.2 K/uL (0-0.5); Absolute Lymphocytes (CBC) 2.7 K/uL (0.7-4.9); Absolute Monocytes 0.8 K/uL (0.1-1.3); Absolute Neutrophil 7.1 K/uL (1.8-8.0); Basophils % 0.4 % (0-1.3); Eosinophils % 1.9 % (0-4.4); Hematocrit 28.5 % (39.6-49.0); Hemoglobin 9.3 g/dL (13.6-17.9); Lymphocytes % 24.8 % (15.3-44.8); MCH 26.8 pg (27.0-35.0); MCHC 32.7 g/dL (32.0-36.0); MPV 8.1 fL (7.6-11.3); Monocytes % 7.3 % (3.3-12.3); Neutrophils % 65.6 % (41.7-73.7); Nucleated Red Blood Cells % 0.1 % (0-0); Platelets 379 thou/uL (152-406); RBC Red Blood Cell Count 3.48 M/uL (4.33-5.43); Red Cell Distribution Width 15.2 % (12.1-15.2)
[2023-06-01] MEDS: OXYBUTYNIN ER 5 MG TAB PO SCH (07:45)
[2023-06-01] MEDS: DULOXETINE 30 MG CAP PO SCH (07:45)
[2023-06-01] MEDS: TAMSULOSIN 0.4 MG SR CAP PO SCH (07:45)
[2023-06-01] MEDS: FINASTERIDE 5 MG TAB PO SCH (07:45)
[2023-06-01] MEDS: predniSONE 20 MG TAB PO SCH (07:46)
[2023-06-01 07:47] LABS: Albumin 2.9 g/dL (3.4-5.0); Anion Gap 6.5 mEq/L (5.0-15.0); Magnesium 1.5 mg/dL (1.6-2.4); Potassium 3.5 mEq/L (3.5-5.1); Prealbumin 21.1 mg/dL (20-40)
[2023-06-01] MEDS: INSTAFLEX PO SCH (08:00)
[2023-06-01] MEDS: MAGNESIUM OXIDE 400 MG TAB PO ONE (11:42)
[2023-06-01] MEDS ORDERED: MAGNESIUM HYDROXIDE 8% 30 ML PO PRN (17:55)
--- NOTE | 2023-06-01 19:30 | HP ---
Date of Admission: 05/31/2023 Time Of Service: 4 p.m. Chief Complaint: "I had surgery and I am getting better." History Of Present Illness: Ms. Chao is an 87-year-old right-handed patient with hyperten jasen, dyslipidemia, benign prostatic hypertrophy with cardiac stents, Guillain-Hydro, who came to [facility] with 6-week history of left inguinal pain and was admitted to the acute care floor. His eval uation by imaging identified an incarcerated inguinal hernia with necrotic fatty layers. He was eval uated by the surgical service and deemed to require surgical intervention for reduction. He subseque ntly had pain management, followed by his primary care physician, Dr. Yu. Renal function was foll owed. He had elevated creatinine of 1.31, BUN of 42, glucose elevated at 121. He is also followed b y Dr. Tariq Boucher, his neurologist for his Guillain-Hydro. He was evaluated by Physical Therapy, Occ upational Therapy Service and determined that he was functioning well below his prior level of functi oning and required significant help as he had declined in his ability to transfer from bed to chair t o toilet to shower and mobilize by a wheelchair and walker. In addition, he was diagnosed sorry with polymyalgia rheumatica as related to his increased pain and stiffness throughout the body, which req uired oral steroids for treatment. As a result, he is determined to be an appropriate candidate for inpatient rehabilitation and is therefore admitted for physical, occupational, and if need be speech therapy along with 24-hour a day [facility], physician evaluation on a daily basis. Social serv ice evaluation for discharge planning to help the patient able to return home and not be rehospitaliz ed. Past Medical History: In addition to above mentioned, neck pain, coronary artery disease, atrial fib rillation, cardiac stents, benign prostatic hypertrophy, dyslipidemia, hypertension, and Guillain-Bar re. He has had neck surgery, bilateral shoulder surgery, and back surgery in 2018. Allergies: CIPROFLOXACIN, PENICILLIN, CODEINE, INFLUENZA VIRUS. Medications: Tylenol Extra Strength 500 mg every 4 hours as needed, Eliquis 2.5 mg twice daily, Dulc olax 10 mg per rectum as needed for constipation, Benadryl 25 mg every 6 hours, Cymbalta 30 mg daily, Proscar 5 mg daily, gabapentin 600 mg twice daily, magnesium oxide 400 mg twice daily, melatonin 3 m g at bedtime, Lopressor 25 mg twice daily, Ensure Enlive 237 mL twice daily, Zofran 4 mg every 6 hour s as needed, Ditropan XL 5 mg daily, Deltasone 20 mg daily, Crestor 20 mg at bedtime, Senokot-S 2 tab lets twice daily, Flomax 0.4 mg at night, tramadol 50 mg every 6 hours, trazodone 50 mg at bedtime as needed for insomnia. Family History: Noncontributory. Laboratory Studies: White blood cell count 10.0, hemoglobin 9.3, platelets 379. Sodium 141, potassi um 3.5, chloride 109, carbon dioxide 29, BUN 19, creatinine 0.96, glucose 121, calcium 9.6, magnesium 1.5, albumin 2.9, prealbumin 21.1. Urinalysis positive for trace glucose, otherwise negative. X-ray Imaging: A pelvic CT scan identified incarcerated inguinal hernia with necrotic fatty layers. Review of Systems: He reports difficulty sleeping at night and the nursing staff said the patient was up and talking and singing at night and had difficulty going to sleep. In addition, he did have a recent good bowel mo vement after a few days of not having a bowel movement. Otherwise, some mild pain at the inguinal he rnia surgical site, but that is mitigated by the Tylenol and tramadol. He denies any other issues, a lthough he does report some myalgias and arthralgias, which is addressed by the steroids. Otherwise, no other positives on the systems review. Current Level Of Functioning: He is independent for eating, oral hygiene. Moderate assist for toile t hygiene, showering, upper body dressing all moderate assistance. Lower body dressing, donning and doffing footwear, moderate assistance. Go from a sit to lying position, moderate assistance. From l natalie to sitting, moderate assistance. Eba-on-wwzts, moderate assistance. Going from a chair to toil et to shower, all moderate assistance and with a rolling walker covered 5 feet with moderate assistan ce. Physical Examination: Vital Signs: Blood pressure 136/63, pulse 79, respiratory rate 18, temperature 97.6, oxygen saturati on 92%. Weight 155 pounds, height 5 feet 8 inches, BMI 23.6. General: Sitting beside his bed as he is finishing his dinner, he appears normocephalic, atraumatic. Sclerae anicteric. Oropharynx pink and moist. Neck: Supple. Chest: Clear. Abdomen: No significant pain is noted at surgical site with good hemostasis. Extremities: No cyanosis, clubbing, or edema. Neurological: In upper extremities, no focal deficits. In his legs as well, some mild diffuse weakn ess. In terms of cranial nerves, no obvious deficits there. Coordination intact. Rehabilitation And Medical Assessment And Plan: Mr. Chao is admitted to the rehabilitation unit wit h impairment category 20 miscellaneous. His impairment group code is 16, debility, noncardiac, nonpu lmonary. Etiologic diagnosis, polymyalgia rheumatica. Additional comorbidities, atrial fibrillation , chronic kidney disease, debility, decreased mobility, decreased physical functioning, difficulty wa lking, hypertension, pain, weakness, dyslipidemia, incarcerated hernia with necrotic fatty layers, st atus post repair. Plan: 1.He will have physical, occupational, and if need be speech therapy for 3.5 hours, 5 of 7 days. 2.We will continue Eliquis 2.5 mg twice daily for DVT prophylaxis, Tylenol 500 mg every 4 hours as n eeded along with tramadol 50 mg every 6 hours as needed for pain management. Continue with Dulcolax as needed for constipation. We will use milk of magnesia instead of Senokot-S for constipation along with the Dulcolax suppository, Cymbalta 30 mg daily for depression and neuropathic pain along with t he gabapentin 600 mg twice daily for neuropathic pain, magnesium oxide 400 mg twice daily for muscle spasms, melatonin and trazodone for insomnia. Metoprolol 25 mg twice daily for heart rate control an d blood pressure control. The prednisone 20 mg daily for polymyalgia rheumatica. Continue Crestor f or dyslipidemia, Flomax for prostate hypertrophy and urinary retention. Comorbidities That Are Impacting The Rehabilitation: His recent surgery and surgical site be address ed with removal of dressing, placement of Steri-Strips, and maintaining a dry surface. He is to have weight lifting of no more than 10 pounds as he heals to reduce chance of complication at the surgica l site. Rehab Specific Plan: Have physical, occupational, and speech therapy for 3.5 hours, 5 out of 7 days to improve his ability to transfer from bed to chair to toilet to be able to go household distances a nd beyond 250 feet with modified independence using a rolling walker, up and down 10 steps with modif ied independence and propel a wheelchair 250 feet with modified independence in addition to fall. Hi s cognitive functioning independently including medication management, physician followup, and safety awareness. If need be, the patient will have additional help provided by the general surgery staff. Dr. Montero performed the surgery. He may be contacted as needed. He is followed by Dr. Yu, his primary care physician who will be managing his medical conditions. He will have 24 hours a day skil led nursing, physician evaluation on a daily basis, and social service evaluation for discharge plann ing and equipment as needed. He has a good understanding of the process of admission to the inpatient rehabilitation facility and how he will benefit from physical, occupational, and speech therapy if need be. Again, other service s may be consulted as needed. Given his complex medical condition and risk of further complications, rehabilitation cannot be safely or effectively performed at a lower level facility such as [facility]. Barriers To Discharge: He has had limitation of 10 pound weight carry and should be able to adhere t o that, may require speech to help reinforce that as he has some mild impairment in cognition and spe ech therapy will work with him. In addition, he has atrial fibrillation with high risk of stroke and has to be on anticoagulation. He will also have DVT prophylaxis to reduce the risk of clot formatio n and that will continue beyond this stay in hospital. Length Of Stay: About 12 days. Disposition: Home with family and continue therapy via Home Health. Prognosis: Good. Rehab Specific Goals: 1.Become independent with upper body dressing, toileting, showering, donning and doffing shoes. 2.Independently ambulate 250 feet with a rolling walker. 3.Independently propel a wheelchair 250 feet. 4.Independently go up and down 10 steps with bilateral handrails. 5.Independent with more cognitive functioning. 6.The above goals were reviewed with Mr. Chao and he is in agreement. By signing this document, I acknowledge that I personally performed a full physical examination on Mr Casa Chao no later than 24 hours after his admission to the inpatient rehabilitation facility and deter mined that he is able to tolerate the above course of treatment at an intensive level for a reasonabl e period of time. A detailed individualized plan of care for him will be completed by hospital day 4 based on the preadmission screening, history and physical, and therapy evaluations. MOSES Voice ID: [id number]
[2023-06-01] MEDS ORDERED: DOCUSATE NA/SENNA CONC 1 TAB PO SCH ×2 (20:00→21:00)
[2023-06-01] MEDS: TRAZODONE 50 MG TABLET PO PRN (20:34)
[2023-06-01] MEDS: ENSURE ENLIVE 237 ML CAN PO SCH (20:35)
[2023-06-01] MEDS: MAGNESIUM OXIDE 400 MG TAB PO SCH (20:35)
[2023-06-02] MEDS: MAGNESIUM OXIDE 400 MG TAB PO ONE (14:41)
[2023-06-02] MEDS: BISACODYL 10 MG RECTAL SUPP PR PRN (14:42)
--- NOTE | 2023-06-02 17:45 | P.PN ---
Subjective Date of Service: 06/02/23 Chief Complaint: LOT BETTER Subjective: Improving HE ALWAYS HAS PAIN EVERYWHERE. ON FRIDAY HE WAS TENDER ALL OVER. I SUSPECTED PMR AND STARTED HIMON STEROIDS AND HE IS LOT BETTER TODAY. Review of Systems 10-point ROS is otherwise unremarkable General: Weakness Physical Examination - Vital Signs Temperature: 96.9 F Blood Pressure: 125/62 Pulse: 78 Respirations: 18 Pulse Ox (%): 93 - Physical Exam General: Acute distress, Mild distress HEENT: Atraumatic, PERRLA, EOMI Neck: Supple, JVD not distended Respiratory: Clear to auscultation bilaterally, Normal air movement Cardiovascular: Regular rate/rhythm, Normal S1 S2 Gastrointestinal: Normal bowel sounds, No tenderness Musculoskeletal: No tenderness Integumentary: No rashes Neurological: Normal speech, Normal tone, Normal affect Lymphatics: No axilla or inguinal lymphadenopathy - Studies Laboratory Data (last 24 hrs) 06/02/23 03:41 Magnesium 1.5 L Microbiology Data (last 24 hrs): 05/31/23 21:00 Clean Catch Urine Donalds Count - Final No growth. 05/31/23 21:00 Clean Catch Urine - Final No growth. Medications List Reviewed: Yes Assessment And Plan - Current Problems (Diagnosis) (1) PMR (polymyalgia rheumatica) Current Visit: No Status: Acute Plan: HE IS LOT BETTER. CONTINUE LOW DOSE STEROIDS OVER TIME. (2) Spinal stenosis at L4-L5 level Current Visit: No Status: Chronic
[2023-06-02] MEDS: MAGNESIUM OXIDE 400 MG TAB PO SCH (20:44)
--- NOTE | 2023-06-02 22:53 | PN ---
Date of Progress Note: 06/02/2023 Time Of Service: 1:40 p.m. Subjective: He is doing well. No complaints. There is no significant pain at the left inguinal reg ion, where there was a surgical reduction of an incarcerated inguinal hernia with necrotic fatty laye rs. No significant fevers or chills. Nausea and vomiting, some arthralgias, myalgias. No rash. No psyc hiatric issues. Physical Examination: Vital Signs: Blood pressure 125/62, pulse 78, respiratory rate 18, temperature 97.2, oxygen saturati on 93%. General: Mr. Chao is resting comfortably in no significant distress. HEENT: He does appear to be normocephalic, atraumatic, anicteric. He was lying in bed with a speech pathologist, is lying on the stomach, and has no complaints there. at the bedside and did say that he is enjoying his therapy. Laboratory Studies: He has a magnesium level of 1.5. Sodium 141, potassium 3.5, chloride 109, carbo n dioxide 29, BUN 19, creatinine 0.96, glucose 121, prealbumin 21.1, albumin 2.9. White blood cell c ount 10.8, hemoglobin 9.3, platelets 279. X-ray/imaging: No new x-ray imaging. Medications: Eliquis 2.5 mg twice daily, Tylenol 500 mg every 4 hours as needed, Dulcolax 10 mg per rectum as needed, Benadryl 25 mg every 6 hours as needed, Proscar 5 mg daily, Cymbalta 30 mg daily, g abapentin 600 mg twice daily, milk of magnesia 30 mg daily for constipation, magnesium oxide 800 mg t wice daily, melatonin 3 mg at bedtime, Lopressor 25 mg twice daily Ensure Enlive 237 mL twice daily, Zofran 4 mg every 6 hours as needed, Ditropan 5 mg daily, prednisone 20 mg daily, Crestor 20 mg at be dtime, Flomax 0.4 mg daily, Ultram 50 mg daily, trazodone 50 mg as needed for insomnia. Progress Made With Physical And Occupational Therapy Along With Speech Therapy: Today, with occupati onal therapy, contact guard assistance with walker, transfers from a wheelchair to toilet. Toileting , minimal assistance, bathing minimal assistance, upper body dressing supervision, some assistance an d extra time were actually needed for pulling on over shirt. Regarding speech therapy, he did have s et long-term goals of improving executive functioning, memory skills from a maximal assistance to mod erate assistance level prior to discharge home with his spouse. Mr. Chao is making good overall progress with physical and occupational therapy. Still has cognitiv e challenges with his speech. Assessment: Mr. Chao is an 87-year-old patient in the rehabilitation unit with polymyalgia rheumati ca, atrial fibrillation, chronic kidney disease, decreased mobility, decreased physical functioning, hypertension, dyslipidemia, incarcerated hernia with necrotic tissue, status post surgical repair. Plan: 1.Continue with physical, occupational, and speech therapy for 3.5 hours, 5 of 7 days. 2.Continue comorbid condition medications including Eliquis for DVT prophylaxis, Tylenol for pain, T ylenol additional for pain, milk of magnesia for constipation, and Dulcolax suppository as needed, Cy mbalta for depression along with neuropathic pain plus gabapentin, metoprolol for hypertension, predn isone for his polymyalgia rheumatica. Comorbidities That Are Impacting His Rehabilitation: Currently, the cognitive issues make it difficu lt for him to make safe decisions and he would be at risk of falling at home. The patient will likel y require 24-hour supervision for him to do well. In addition, he has a 10-pound weightbearing restr iction given his surgical site repairing the inguinal hernia. LB/MODL Voice ID: [id number] Report ID: [id number]
--- NOTE | 2023-06-03 21:58 | P.PN ---
Subjective Date of Service: 06/03/23 Chief Complaint: LOT BETTER Subjective: Improving HE ALWAYS HAS PAIN EVERYWHERE. ON FRIDAY HE WAS TENDER ALL OVER. I SUSPECTED PMR AND STARTED HIMON STEROIDS AND HE IS LOT BETTER TODAY. CONSTIPATION DULCOLAX DID NOT WORK. SHE WILL TRY SUPPOSITORY Review of Systems 10-point ROS is otherwise unremarkable General: Weakness, Malaise Physical Examination - Vital Signs Temperature: 98.7 F Blood Pressure: 86/50 Pulse: 92 Respirations: 16 Pulse Ox (%): 93 - Physical Exam General: Alert, In no apparent distress, Other (PAIN IS LOT BETTER ON STEROIDS.) HEENT: Atraumatic, PERRLA, EOMI Neck: Supple, JVD not distended Respiratory: Clear to auscultation bilaterally, Normal air movement Cardiovascular: Regular rate/rhythm, Normal S1 S2 Gastrointestinal: Normal bowel sounds, No tenderness Musculoskeletal: No tenderness Integumentary: No rashes Neurological: Normal speech, Normal tone, Normal affect Lymphatics: No axilla or inguinal lymphadenopathy - Studies Medications List Reviewed: Yes Assessment And Plan - Current Problems (Diagnosis) (1) PMR (polymyalgia rheumatica) Current Visit: No Status: Acute Plan: HE IS LOT BETTER. CONTINUE LOW DOSE STEROIDS OVER TIME. CONT MEDS NOT IN PAIN ANY LONGER. (2) Spinal stenosis at L4-L5 level Current Visit: No Status: Chronic (3) Hx of inguinal hernia surgery Current Visit: Yes Status: Acute Plan: DOING GOOD NOW.
[2023-06-03] MEDS: TRAZODONE 50 MG TABLET PO PRN (22:33)
--- NOTE | 2023-06-04 03:36 | PN ---
Date of Progress Note: 06/03/2023 Time Of Service: 1:40 p.m. Subjective: Mr. Chao is in bed between therapy sessions. at bedside. He has no new complaint s. He is doing well. His inguinal hernia surgical site on the left is not disturbing him. Review of Systems: No fevers, chills, nausea, vomiting, myalgias, arthralgias. No significant rash, headache, weight ch nima. Physical Examination: Vital Signs: Blood pressure 133/76, pulse 79, respiratory rate 16, temperature 97.3, oxygen saturati on 92%. General: Mr. Chao is in bed. He is jovial and at times have eyes opened and closed, but voluntaril y does all those activities without any significant issues. Mild postoperative changes expected in t he inguinal hernia site. Otherwise, no other findings there. Laboratory Studies: No new laboratory studies, although magnesium level was repeated yesterday, it w as 1.5. X-ray/imaging: No new x-rays or imaging. Medications: His medications have been reviewed and are unchanged, although his Lopressor which is n ow 25 mg twice daily will be held for systolic blood pressure less than 120. Progress Made With Physical, Occupational, And Speech Therapy: Today with physical therapy, he ambul ated 250 feet with a Rollator with minimum assistance. He did ambulate very slow. Itm-ha-rihgo vera sfers done with contact guard assistance. With occupational therapy, ambulating from the room to gym with a rolling walker was done with supervision, moved to toilet with rolling walker also supervisio n. For speech, he worked on activities starting in short-term memory, working memory, sequencing, an d organizational thinking. He required minimum assistance for divergent and convergent naming tasks. He needed minimal assistance recall 3 of 3 unrelated items after 5 minutes. Mr. Chao is making good progress overall with physical, occupational, and speech therapy. Assessment: Mr. Chao is an 87-year-old patient in the rehabilitation unit with polymyalgia rheumati ca, on steroid treatment. He has atrial fibrillation, chronic kidney disease. His postoperative rep air of the inguinal hernia in the left eye was incarcerated and necrotic. He has decreased physical functioning, decreased mobility. Plan: 1.Continue with physical, occupational, and speech therapy for 3.5 hours, 5 of 7 days. 2.Continue with all medications for comorbid conditions including for DVT prophylaxis. We will hold blood pressure medications for systolic less than 120 and again continue with all other medications. Comorbidities That Are Impacting Rehabilitation: The patient does have episodes of significant hypot ension and will hold antihypertensives and encourage hydration. LB/MODL Voice ID: [id number] Report ID: [id number]
[2023-06-04] MEDS: METOPROLOL TAR 25 MG TAB PO SCH (08:00)
[2023-06-04] MEDS: POLYETHYL GLY 3350 17 GM/DOSE PO SCH (08:04)
[2023-06-04] MEDS: MAGNESIUM OXIDE 400 MG TAB PO SCH (19:26)
--- NOTE | 2023-06-04 21:50 | P.PN ---
Subjective Date of Service: 06/04/23 Chief Complaint: LOT BETTER Subjective: Improving HE ALWAYS HAS PAIN EVERYWHERE. ON FRIDAY HE WAS TENDER ALL OVER. I SUSPECTED PMR AND STARTED HIMON STEROIDS AND HE IS LOT BETTER TODAY. CONSTIPATION DULCOLAX DID NOT WORK. SHE WILL TRY SUPPOSITORY STABLE. 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 Review of Systems 10-point ROS is otherwise unremarkable Physical Examination - Vital Signs Temperature: 97.5 F Blood Pressure: 119/62 Pulse: 124 Respirations: 16 Pulse Ox (%): 90 - Physical Exam General: Mild distress HEENT: Atraumatic, PERRLA, EOMI Neck: Supple, JVD not distended Respiratory: Clear to auscultation bilaterally, Normal air movement Cardiovascular: Regular rate/rhythm, Normal S1 S2 Gastrointestinal: Normal bowel sounds, No tenderness Musculoskeletal: No tenderness Integumentary: No rashes Neurological: Normal speech, Normal tone, Normal affect Lymphatics: No axilla or inguinal lymphadenopathy - Studies Laboratory Data (last 24 hrs) 06/04/23 03:39 Magnesium 1.9 Medications List Reviewed: Yes Assessment And Plan - Current Problems (Diagnosis) (1) PMR (polymyalgia rheumatica) Current Visit: No Status: Acute Plan: HE IS LOT BETTER. CONTINUE LOW DOSE STEROIDS OVER TIME. CONT MEDS NOT IN PAIN ANY LONGER. TAPER STEROIDS SLOWLY (2) Spinal stenosis at L4-L5 level Current Visit: No Status: Chronic (3) Hx of inguinal hernia surgery Current Visit: Yes Status: Acute Plan: DOING GOOD NOW.
[2023-06-05 04:24] LABS: Absolute Basophils 0.1 K/uL (0-0.5); Absolute Lymphocytes (CBC) 2.8 K/uL (0.7-4.9); Absolute Monocytes 0.9 K/uL (0.1-1.3); Absolute Neutrophil 7.2 K/uL (1.8-8.0); Eosinophils % 0.3 % (0-4.4); Hematocrit 27.2 % (39.6-49.0); Hemoglobin 8.8 g/dL (13.6-17.9); Lymphocytes % 25.1 % (15.3-44.8); MCH 26.3 pg (27.0-35.0); MCHC 32.3 g/dL (32.0-36.0); MCV 81.3 fL (80-100); MPV 8.2 fL (7.6-11.3); Monocytes % 8.1 % (3.3-12.3); Neutrophils % 65.5 % (41.7-73.7); Platelets 425 thou/uL (152-406); RBC Red Blood Cell Count 3.35 M/uL (4.33-5.43); Red Cell Distribution Width 15.1 % (12.1-15.2)
[2023-06-05 04:37] LABS: Magnesium 2.1 mg/dL (1.6-2.4); Prealbumin 29.2 mg/dL (20-40)
--- NOTE | 2023-06-05 17:52 | P.PN ---
Subjective Date of Service: 06/05/23 Chief Complaint: LOT BETTER Subjective: Improving HE ALWAYS HAS PAIN EVERYWHERE. ON FRIDAY HE WAS TENDER ALL OVER. I SUSPECTED PMR AND STARTED HIMON STEROIDS AND HE IS LOT BETTER TODAY. CONSTIPATION DULCOLAX DID NOT WORK. SHE WILL TRY SUPPOSITORY STABLE. 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 SITTING UP IN BED NO PAIN SPEECH ALWAYS SLURRED. Review of Systems 10-point ROS is otherwise unremarkable Physical Examination - Vital Signs Temperature: 97.6 F Blood Pressure: 118/56 Pulse: 104 Respirations: 16 Pulse Ox (%): 92 - Physical Exam General: Oriented x3, Mild distress HEENT: Atraumatic, PERRLA, EOMI Neck: Supple, JVD not distended Respiratory: Clear to auscultation bilaterally, Normal air movement Cardiovascular: Regular rate/rhythm, Normal S1 S2 Gastrointestinal: Normal bowel sounds, No tenderness Musculoskeletal: No tenderness Integumentary: No rashes Neurological: Normal speech, Normal tone, Normal affect Lymphatics: No axilla or inguinal lymphadenopathy - Studies Laboratory Data (last 24 hrs) 06/05/23 06/05/23 03:45 03:45 WBC 11.00 H Hgb 8.8 L Hct 27.2 L Plt Count 425 H Sodium 139 Potassium 4.0 BUN 43 H Creatinine 1.23 Glucose 161 H Magnesium 2.1 Medications List Reviewed: Yes Assessment And Plan - Current Problems (Diagnosis) (1) PMR (polymyalgia rheumatica) Current Visit: No Status: Acute Plan: STEROIDS ARE WORKING GREAT THIS MAN WHO WAS IN PAIN FOR MONTHS IS NOT IN PAIN ANY LONGER. (2) Spinal stenosis at L4-L5 level Current Visit: No Status: Chronic (3) Hx of inguinal hernia surgery Current Visit: Yes Status: Acute Plan: DOING GOOD NOW.
--- NOTE | 2023-06-05 23:18 | PN ---
Date of Progress Note: 06/05/2023 Time Of Service: 1:35 p.m. Subjective: Mr. Chao is resting comfortably. He is in no significant distress. He was able to amb ulate around the unit. He typically lies across the bed and legs hang off the side and no complaints . Review of Systems: He denies any significant fevers or chills, myalgias, arthralgias. No other complaints such as heada paty. Physical Examination: Vital Signs: Blood pressure 118/56, pulse 104, respiratory rate 16, temperature 97.6, oxygen saturat ion 92% on room air. General: Mr. Chao is resting comfortably. He is in no significant distress. HEENT: He is normocephalic, atraumatic. Sclerae are anicteric. Oropharynx moist. Neck: Supple. Chest: Clear. Heart: Regular. No significant edema or cyanosis. Laboratory Studies: White blood cell count 11, hemoglobin 8.8, platelets 425. Sodium 139, potassium 4.0, chloride 104, carbon dioxide 31, BUN 43, creatinine 1.23, glucose 161, calcium 9.3. Magnesium 2.1. Albumin 3.0, prealbumin 29.2. It should be noted that his BUN was 19 on the 24th, now is 43; c reatinine was 0.96 on the 24th, now 28th is 1.23, consistent with the patient's being somewhat dehydr ated. X-ray/imaging: No new x-ray imaging. Medications: He has Proscar, which is continued. All medications have been reviewed and are unchang ed. Progress Made With Physical, Occupational, And Speech Therapy: Today with occupational therapy, inde pendent with bathing. He with right orientation. Required contact guard for upper body d ressing, assistance to pull his shirt down. With speech, recalled 3 of 3 unrelated pictures after 3 minutes. Working memory skills used for 3 pieces of information with 70% accuracy and maximum assist ance. Organizational thinking skills used with 80% accuracy and moderate assistance for convergent and dive rgent naming. His goal is to making good progress and is likely to be ready for discharge in the next 2 days and [facility] to continue. Mr. Chao is an 87-year-old patient in the rehabilitation unit with polymyalgia rheumatica. He is re ceiving steroids. He has multiple comorbidities including atrial fibrillation, chronic kidney diseas e, status post operative repair of a left inguinal hernia and the hernia was incarcerated and chronic as it was addressed. He has decreased mobility, decreased physical functioning. Plan: 1.Continue with physical, occupational, and speech therapy to continue for 3.5 hours, 5 of 7 days. 2.We will contact his surgeon to determine removal of the killian from the inguinal hernia repair si te. We will continue Tylenol and tramadol for pain, Eliquis for DVT prophylaxis, Milk of Magnesia fo r constipation, Crestor for dyslipidemia, prednisone for his polymyalgia rheumatica, Ensure Enlive fo r malnutrition, Flomax for urinary retention and prostate hypertrophy. Comorbidities That Are Impacting Rehabilitation: His inguinal hernia repair site is not posing any p roblem, although I will contact Surgery to determine the time for removal of his staple from the repa ir of his inguinal hernia. The patient had surgery done by Dr. Rajat Montero on the . He did repai r the left inguinal hernia. LB/MODL Voice ID: [id number] Report ID: [id number]
--- NOTE | 2023-06-06 07:45 | P.PN ---
Subjective Date of Service: 06/06/23 Chief Complaint: LOT BETTER Subjective: Improving STABLE, PAIN IS NOT THERE ANY LONGER. Review of Systems 10-point ROS is otherwise unremarkable General: Weakness Physical Examination - Vital Signs Temperature: 98.0 F Blood Pressure: 105/58 Pulse: 110 Respirations: 18 Pulse Ox (%): 94 - Physical Exam General: Alert, In no apparent distress HEENT: Atraumatic, PERRLA, EOMI Neck: Supple, JVD not distended Respiratory: Clear to auscultation bilaterally, Normal air movement Cardiovascular: Regular rate/rhythm, Normal S1 S2 Gastrointestinal: Normal bowel sounds, No tenderness Musculoskeletal: No tenderness Integumentary: No rashes Neurological: Normal speech, Normal tone, Normal affect Lymphatics: No axilla or inguinal lymphadenopathy - Studies Medications List Reviewed: Yes Assessment And Plan - Current Problems (Diagnosis) (1) PMR (polymyalgia rheumatica) Current Visit: No Status: Acute Plan: STEROIDS ARE WORKING GREAT THIS MAN WHO WAS IN PAIN FOR MONTHS IS NOT IN PAIN ANY LONGER. CONT STEROIDS OVER A YEAR. (2) Spinal stenosis at L4-L5 level Current Visit: No Status: Chronic (3) Hx of inguinal hernia surgery Current Visit: Yes Status: Acute Plan: DOING GOOD NOW.
[2023-06-06 09:15] LABS: Percent Reticulocyte Count 1.94 % (0.4-2.05); RBC Red Blood Cell Count 3.81 M/uL (4.33-5.43)
[2023-06-06 10:04] VITALS: O2SAT 96
--- NOTE | 2023-06-06 13:17 | P.RH.PN ---
Estimated Length of Stay: 11 Expected Discharge Date: 06/07/23 Discharge Disposition Plan: Home Family Support: Yes Penit[facility] Goal: Mobility, Transfers, Self Care Vital Signs: Last Vital Signs Temp 97.4 F 06/06/23 08:00 Pulse 79 06/06/23 08:00 Resp 18 06/06/23 08:00 BP 112/58 L 06/06/23 08:00 Pulse Ox 96 06/06/23 08:00 Laboratory: Laboratory Last Values WBC 11.00 thou/uL (4.3-10.9) H 06/05/23 03:45 RBC 3.81 M/uL (4.33-5.43) L 06/06/23 09:03 Hgb 8.8 g/dL (13.6-17.9) L 06/05/23 03:45 Hct 27.2 % (39.6-49.0) L 06/05/23 03:45 MCV 81.3 fL (80-100) 06/05/23 03:45 MCH 26.3 pg (27.0-35.0) L 06/05/23 03:45 MCHC 32.3 g/dL (32.0-36.0) 06/05/23 03:45 RDW 15.1 % (12.1-15.2) 06/05/23 03:45 Plt Count 425 thou/uL (152-406) H 06/05/23 03:45 MPV 8.2 fL (7.6-11.3) 06/05/23 03:45 Neutrophils % 65.5 % (41.7-73.7) 06/05/23 03:45 Lymphocytes % 25.1 % (15.3-44.8) 06/05/23 03:45 Monocytes % 8.1 % (3.3-12.3) 06/05/23 03:45 Eosinophils % 0.3 % (0-4.4) 06/05/23 03:45 Basophils % 1.0 % (0-1.3) 06/05/23 03:45 Absolute Neutrophils 7.2 K/uL (1.8-8.0) 06/05/23 03:45 Absolute Lymphocytes 2.8 K/uL (0.7-4.9) 06/05/23 03:45 Absolute Monocytes 0.9 K/uL (0.1-1.3) 06/05/23 03:45 Absolute Eosinophils 0.0 K/uL (0-0.5) 06/05/23 03:45 Absolute Basophils 0.1 K/uL (0-0.5) 06/05/23 03:45 Absolute Retic 0.07 M/uL (0.02-0.11) 06/06/23 09:03 Percent Retic 1.94 % (0.4-2.05) 06/06/23 09:03 Sodium 139 mEq/L (136-145) 06/05/23 03:45 Potassium 4.0 mEq/L (3.5-5.1) 06/05/23 03:45 Chloride 104 mEq/L (98-107) 06/05/23 03:45 Carbon Dioxide 31 mEq/L (21-32) 06/05/23 03:45 Anion Gap 8.0 mEq/L (5.0-15.0) 06/05/23 03:45 BUN 43 mg/dL (7-18) H 06/05/23 03:45 Creatinine 1.23 mg/dL (0.70-1.30) 06/05/23 03:45 Est GFR (CKD-EPI) 57 ml/min (=/>90) L 06/05/23 03:45 Glucose 161 mg/dL (74-106) H 06/05/23 03:45 Calcium 9.3 mg/dL (8.5-10.1) 06/05/23 03:45 Magnesium 2.1 mg/dL (1.6-2.4) 06/05/23 03:45 Iron 22.0 ug/dL (65-175) L 06/06/23 09:03 TIBC 374 ug/dL (250-460) 06/06/23 09:03 Transferrin 267 mg/dL (200-360) 06/06/23 09:03 Transferrin % Sat 5.9 % (20.0-50.0) L 06/06/23 09:03 Ferritin 43.0 ng/mL (26-388) 06/06/23 09:03 Lactate Dehydrogenase 202 U/L (87-241) 06/06/23 09:03 Albumin 3.0 g/dL (3.4-5.0) L 06/05/23 03:45 Prealbumin 29.2 mg/dL (20-40) 06/05/23 03:45 Vitamin B12 1338 pg/mL (193-986) H 06/06/23 09:03 Urine Color Colorless (Yellow) 05/31/23 21:00 Urine Clarity Clear (Clear) 05/31/23 21:00 Urine pH 5.5 (5.0-7.0) 05/31/23 21:00 Ur Specific Beaver 1.007 (1.005-1.030) 05/31/23 21:00 Glucose (UA)(Auto) Trace (Negative) H 05/31/23 21:00 Urine Ketones Negative (Negative) 05/31/23 21:00 Urine Blood Negative (Negative) 05/31/23 21:00 Urine Nitrite Negative (Negative) 05/31/23 21:00 Urine Bilirubin Negative (Negative) 05/31/23 21:00 Urine Urobilinogen Normal (Normal) 05/31/23 21:00 Ur Leukocyte Esterase Negative Ben/uL (Negative) 05/31/23 21:00 Urine RBC <5 /HPF (None Seen) 05/31/23 21:00 Urine WBC <5 /HPF (<5) 05/31/23 21:00 Ur Squamous Epith Cells <5 /HPF (None Seen) 05/31/23 21:00 Urine Bacteria None seen /HPF (<20) 05/31/23 21:00 Urine Mucus Slight /HPF (None Seen) 05/31/23 21:00 Urine Culture Reflexed Not needed 05/31/23 21:00 Urine Total Protein Negative (Negative) 05/31/23 21:00 Weight: 155 lb Wound Present: No Closed Surgical Incision Present: Yes Negative Pressure Wound Therapy Present: No Physician Update: Labs reviewed and are stable. Met 5/5 short term goals. Does ADL with contact guard and independence. BIMS 12, SLUMS 18, met 3/4 of short te rm goals. Short term physical goals 4/4. RW 250' x 2 with upright walker. He will follow up the Dr. Montero Summary: Patient's care plan and penitentiary goals have been reviewed and revised as necessary. Please see the Rehabilitation Signature page for all necessary signatures.
[2023-06-07] MEDS: TRAZODONE 50 MG TABLET PO PRN (00:18)
[2023-06-07 06:46] VITALS: TEMP 97.1
[2023-06-07 08:50] VITALS: BP 120/68
--- NOTE | 2023-06-07 09:46 | P.PN ---
Subjective Date of Service: 06/07/23 Chief Complaint: LOT BETTER Subjective: Improving STABLE, PAIN IS NOT THERE ANY LONGER. HAS NO PAIN. FEELS LOT BETTER. Review of Systems 10-point ROS is otherwise unremarkable Physical Examination - Vital Signs Temperature: 97.1 F Blood Pressure: 120/68 Pulse: 90 Respirations: 20 Pulse Ox (%): 94 - Physical Exam General: Alert, In no apparent distress HEENT: Atraumatic, PERRLA, EOMI Neck: Supple, JVD not distended Respiratory: Clear to auscultation bilaterally, Normal air movement Cardiovascular: Regular rate/rhythm, Normal S1 S2 Gastrointestinal: Normal bowel sounds, No tenderness Musculoskeletal: No tenderness Integumentary: No rashes Neurological: Normal speech, Normal tone, Normal affect Lymphatics: No axilla or inguinal lymphadenopathy - Studies Medications List Reviewed: Yes Assessment And Plan - Current Problems (Diagnosis) (1) PMR (polymyalgia rheumatica) Current Visit: No Status: Acute Plan: STEROIDS ARE WORKING GREAT THIS MAN WHO WAS IN PAIN FOR MONTHS IS NOT IN PAIN ANY LONGER. CONT STEROIDS OVER A YEAR. THIS WAS A MAJOR ISSUE SO FAR AND HAS IMPROVED ON STEROIDS. (2) Spinal stenosis at L4-L5 level Current Visit: No Status: Chronic (3) Hx of inguinal hernia surgery Current Visit: Yes Status: Acute Plan: DOING GOOD NOW.
[2023-06-10 09:54] LABS: Abnormal Protein Band 1 REPORT; Albumin, (SPE) 3.6 g/dL (3.8-4.8); Alpha-1-Globulins 0.3 g/dL (0.2-0.3); Beta 1 Globulin 0.5 g/dL (0.4-0.6); Gamma Globulins 0.7 g/dL (0.8-1.7); INTERPRETATION REPORT; Total Protein 6.4 g/dL (6.1-8.1)
[2023-06-20 07:28] LABS: Tissue Transglutaminase IgA Ab <1.0
[2023-06-20 07:29] LABS: Immunoglobulin A 184
== END 2023-06-07 10:30 | disposition home or self-care (01) | DRG 546 ==
LOC: 5TH 05-31 19:00
PROVIDERS: ADMIT Psychiatry & Neurology Neurology with Special Qualifications in Child Neurology; ATTEND Psychiatry & Neurology Neurology with Special Qualifications in Child Neurology
DX: M35.3 Polymyalgia rheumatica (principal); G61.0 Guillain-Barre syndrome; R53.81 Other malaise; I48.91 Unspecified atrial fibrillation; I12.9 Hypertensive chronic kidney disease with stage 1 through stage 4 chronic kidney disease, or unspecified chronic kidney disease; N18.9 Chronic kidney disease, unspecified; E78.5 Hyperlipidemia, unspecified; N40.0 Benign prostatic hyperplasia without lower urinary tract symptoms; I25.10 Atherosclerotic heart disease of native coronary artery without angina pectoris; M54.2 Cervicalgia; M48.061 Spinal stenosis, lumbar region without neurogenic claudication
CPT/HCPCS: 36415; 80048; 81001; 82040; 82607; 82728; 82784; 83540; 83615; 83735; 84134; 84165; 84466; 85025; 85044; 86364; 87086; 87088; 92523; 97110; 97116; 97129; 97140; 97163; 97165; 97530; 97542; J7512

== ENCOUNTER 2023-07-14 15:43 | Emergency (ER) | payer OTHER ==
[2023-07-14] MEDS ORDERED: MORPHINE 4 MG/ML SYR ONE (16:43)
[2023-07-14] MEDS ORDERED: NA CHLORIDE 0.9% 1,000 ML ONE (16:43)
[2023-07-14] MEDS ORDERED: ONDANSETRON 4 MG/2 ML VIAL ONE (16:43)
[2023-07-14 17:05] LABS: Absolute Basophils 0.1 K/uL (0-0.5); Absolute Eosinophils 0.1 K/uL (0-0.5); Absolute Lymphocytes (CBC) 3.4 K/uL (0.7-4.9); Absolute Monocytes 0.8 K/uL (0.1-1.3); Absolute Neutrophil 5.8 K/uL (1.8-8.0); Basophils % 0.6 % (0-1.3); Eosinophils % 0.5 % (0-4.4); Hematocrit 38.4 % (39.6-49.0); Hemoglobin 12.4 g/dL (13.6-17.9); Lymphocytes % 33.4 % (15.3-44.8); MCH 25.1 pg (27.0-35.0); MCHC 32.3 g/dL (32.0-36.0); MCV 77.6 fL (80-100); MPV 7.5 fL (7.6-11.3); Monocytes % 7.9 % (3.3-12.3); Neutrophils % 57.6 % (41.7-73.7); Platelets 473 thou/uL (152-406); RBC Red Blood Cell Count 4.94 M/uL (4.33-5.43)
[2023-07-14 17:11] LABS: PT Prothrombin Time 12.4 SECONDS (9.5-12.5); PTT, Activated Partial Thromb 26.8 SECONDS (24.3-36.9); Protime INR 1.13
[2023-07-14 17:22] LABS: Albumin 3.6 g/dL (3.4-5.0); Bilirubin Total 0.4 mg/dL (0.2-1.0); Globulin 3.5 g/dL (2.3-3.5); Protein, Total 7.1 g/dL (6.4-8.2)
--- NOTE | 2023-07-14 17:54 | RAD REPORT ---
EXAM DESCRIPTION: CTAbdomen Pelvis W Contrast - 07/14/2023 5:40 pm CLINICAL HISTORY: Abdominal pain. ABD PAIN COMPARISON: Abdomen Pelvis W Contrast dated 05/26/2023; Abdomen Pelvis W Contrast dated 05/05/2023 ; Abdomen Pelvis W Contrast dated 04/04/2023; Abdomen Pelvis W Contrast dated 09/30/2022 TECHNIQUE: Biphasic CT imaging of the abdomen and pelvis was performed with 100 ml non-ionic IV cont rast. All CT scans are performed using dose optimization technique as appropriate and may include automated exposure control or mA/KV adjustment according to patient size. FINDINGS: The lung bases are clear.Cholelithiasis. The liver, spleen, pancreas, adrenal glands and kidneys are within normal limits. No bowel obstruction, free air, free fluid or abscess. Sigmoid diverticulosis coli without diverticul itis. The appendix is normal. No evidence of significant lymphadenopathy. Postsurgical lumbar spine with hardware in place. IMPRESSION: No acute intra-abdominal or pelvic finding. Sigmoid diverticulosis coli without divertic ulitis. Cholelithiasis.
--- NOTE | 2023-07-14 18:38 | RAD REPORT ---
EXAM DESCRIPTION: US - Abdomen Exam Limited - 07/14/2023 6:16 pm CLINICAL HISTORY: ABD PAIN COMPARISON: Renal Ultrasound-Complete dated 07/21/2022 FINDINGS: The gallbladder demonstrates multiple shadowing gallstones. No pericholecystic fluid or ga llbladder wall thickening. The common bile duct is normal measuring 4 mm. The liver demonstrates no findings of intrahepatic biliary dilatation. IMPRESSION: Cholelithiasis.
[2023-07-14 19:01] LABS: Specific Gravity > 1.030 (1.005-1.030); Urine Bilirubin NEGATIVE (Negative); Urine Blood Negative (Negative); Urine Clarity Clear (Clear); Urine Color Light-Yellow (Yellow); Urine Glucose NEGATIVE (Negative); Urine Ketones NEGATIVE (Negative); Urine Microscopic Reflex YN NO UMIC; Urine Nitrite NEGATIVE (Negative); Urine Protein NEGATIVE (Negative); Urine Urobilinogen Normal (Normal)
--- NOTE | 2023-07-14 19:55 | ER ---
Nurse's Notes [facility] Name: Ranulfo Chao Age: 87 yrs Sex: Male : 1935 Arrival Date: 07/14/2023 Time: 15:43 Bed 17 Private MD: Diagnosis: Lower abdominal pain, unspecified Presentation: 07/13 15:58 Chief complaint: Spouse and/or significant other states: abdominal pain off and on for as6 several months. Coronavirus screen: At this time, the client does not indicate any symptoms associated with coronavirus-19. Ebola Screen: No symptoms or risks identified at this time. Initial Sepsis Screen: Does the patient meet any 2 criteria? No. Patient's initial sepsis screen is negative. Does the patient have a suspected source of infection? No. Patient's initial sepsis screen is negative. Risk Assessment: Do you want to hurt yourself or someone else? Patient reports no desire to harm self or others. Onset of symptoms was July 14, 2023. 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 - Infectious Disease History:: Denies. - Social history:: Smoking status: Patient denies any tobacco usage or history of. Screenin:00 [facility] ED Fall Risk Assessment (Adult) History of falling in the last 3 months, kc6 including since admission No falls in past 3 months (0 pts) Confusion or Disorientation Yes (5 pts) Intoxicated or Sedated No (0 pts) Impaired Gait Yes (1 pt) Mobility Assist Device Used Yes (1 pt) Altered Elimination No (0 pt) Score/Fall Risk Level 3 or more points = High Risk. Abuse screen: Denies threats or abuse. Denies injuries from another. Nutritional screening: No deficits noted. Tuberculosis screening: No symptoms or risk factors identified. Assessment: 16:00 General: Appears in no apparent distress. uncomfortable, well groomed, well developed, kc6 Behavior is cooperative, restless. Pain: Complains of pain in abdomen. Neuro: Level of Consciousness is awake, alert, obeys commands, Oriented to person, place, time, situation, Appropriate for age. Cardiovascular: Capillary refill < 3 seconds. Respiratory: Airway is patent Trachea midline Respiratory effort is even, unlabored, Respiratory pattern is regular, symmetrical. GI: Bowel sounds present X 4 quads. Patient currently denies nausea, vomiting. : No signs and/or symptoms were reported regarding the genitourinary system. EENT: No signs and/or symptoms were reported regarding the EENT system. Derm: No signs and/or symptoms reported regarding the dermatologic system. Skin is intact, is healthy with good turgor, Skin is pink, warm \T\ dry. Musculoskeletal: No signs and/or symptoms reported regarding the musculoskeletal system. Circulation, motion, and sensation intact. Capillary refill < 3 seconds, Range of motion: intact in all extremities. 17:00 Reassessment: Patient appears in no apparent distress at this time. No changes from kc6 previously documented assessment. Patient and/or family updated on plan of care and expected duration. Pain level reassessed. Patient is alert, oriented x 3, equal unlabored respirations, skin warm/dry/pink. 18:00 Reassessment: Patient appears in no apparent distress at this time. No changes from kc6 previously documented assessment. Patient and/or family updated on plan of care and expected duration. Pain level reassessed. Patient is alert, oriented x 3, equal unlabored respirations, skin warm/dry/pink. 19:12 Reassessment: Patient is alert, oriented x 3, equal unlabored respirations, skin jj7 warm/dry/pink. ASSUMED CARE OF PT. PT LYING IN BED. NO DISTRESS NOTED. FAMILY INQUIRING ABOUT PLAN OF CARE. WILL INFORM DREDGE DECKHAND. VS STABLE. CALL AMBROCIO IN REACH NO ADDITIONAL NEEDS AT THIS TIME. Vital Signs: 15:55 BP 102 / 64; Pulse 123; Resp 16 S; Temp 98.6(O); Pulse Ox 95% on R/A; Weight 71.21 kg as6 (R); Height 5 ft. 6 in. (R); 16:59 BP 118 / 75; Pulse 100; ec2 17:35 Pulse 98; ec2 17:36 BP 122 / 66; Pulse 97; Resp 19 S; Pulse Ox 95% on R/A; kc6 18:22 BP 117 / 66; Pulse 110; Resp 18 S; Pulse Ox 93% on R/A; kc6 19:12 BP 127 / 76; Pulse 98; Resp 16; Pulse Ox 93% ; jj7 20:08 BP 125 / 76; Pulse 96; Resp 17; Temp 97.9; Pulse Ox 95% ; jj7 15:55 Body Mass Index 25.34 (71.21 kg, 167.64 cm) as6 ED Course: 15:48 Patient arrived in ED. im 15:48 Poncho Singh MD is Attending Physician. ec2 15:57 Arm band placed on right wrist. as6 15:59 Triage completed. as6 16:00 Patient has correct armband on for positive identification. Bed in low position. Call kc6 light in reach. Side rails up X2. Adult w/ patient. Client placed on continuous cardiac and pulse oximetry monitoring. NIBP monitoring applied. clamp jig assembler on. Door closed. Noise minimized. Lights dimmed. Warm blanket given. Pillow given. 16:41 Traci Duggan, RN is Primary Nurse. kc6 16:45 Inserted saline lock: 22 gauge in right antecubital area, using aseptic technique. jr12 Blood collected. 17:41 CT Abd/Pelvis - IV Contrast Only In Process Unspecified. EDMS 17:42 Yaz Thibodeaux FNP-C is PHCP. kb 18:18 US Abdomen Limited In Process Unspecified. EDMS 18:56 Straight cath inserted, using sterile technique, 16 Fr. Specimen obtained. Returned kc6 clear yellow urine. Patient tolerated well. 18:57 Urinalysis w/ reflexes Sent. kc6 19:07 Report given to DAVIAN QUIROS. kc6 19:12 Provided Education on: USE OF CALL AMBROCIO. jj7 19:12 No provider procedures requiring assistance completed. jj7 20:08 IV discontinued, intact, bleeding controlled, No redness/swelling at site. Pressure jj7 dressing applied. Administered Medications: 16:57 Drug: NS 0.9% IV 1000 ml IV at 1 bolus Per protocol; 1000 mL bolus Route: IV; Rate: 1 kc6 bolus; Site: right antecubital; 18:23 Follow up: Response: No adverse reaction; IV Status: Completed infusion; IV Intake: kc6 1000ml 16:57 Drug: Ondansetron IVP 4 mg IVP once; over 2 minutes Route: IVP; Site: right antecubital;6 18:23 Follow up: Response: No adverse reaction 6 16:57 Drug: morphine IVP or IV 4 mg IVP once over 4 mins Route: IVP; Infused Over: 4 mins; kc6 Site: right antecubital; 18:23 Follow up: Response: No adverse reaction; Pain is decreased; RASS: Alert and Calm (0) 6 Medication: 19:12 VIS not applicable for this client. jj7 Intake: 18:23 IV: 1000ml; Total: 1000ml. 6 Outcome: 19:54 Discharge ordered by . kb 20:08 Discharged to home via wheelchair, with significant other, jj7 20:08 Condition: good 20:08 Discharge instructions given to patient, significant other, Instructed on discharge instructions, follow up and referral plans. Demonstrated understanding of instructions, follow-up care, 20:08 Patient left the ED. jj7 Signatures: Dispatcher [employer] EDYaz Rondon, RAISIN WASHER-C RAISIN WASHER-CkAnthony Singletary RN RN as6 Traci Duggan RN RN [email or web address] Yogi Barnett RN RN jj7 Shilpa Barone Edwin, MD MD ec2 Luann Rivas 12 Corrections: (The following items were deleted from the chart) 20:21 20:20 Patient left the ED. jj7 jj7
--- NOTE | 2023-07-14 19:55 | EDPHYS ---
Physician Documentation [facility] Name: Ranulfo Chao Age: 87 yrs Sex: Male : 1935 Arrival Date: 07/14/2023 Time: 15:43 Bed 17 Private MD: ED Physician Poncho Singh HPI: 07/13 16:03 This 87 yrs old Male presents to ER via Wheelchair with complaints of Abdominal Pain. ec2 16:03 Patient arrives today for abdominal pain. Patient reports chronic pains, states that he ec2 is having worsening pain. Patient reports nausea vomiting, issues with bowels. Patient reports no urinary complaints. No cough and cold symptoms. . 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 - Infectious Disease History:: Denies. - Social history:: Smoking status: Patient denies any tobacco usage or history of. ROS: 16:03 Constitutional: as per hpi ec2 Exam: 16:03 Constitutional: GEN: NAD Head: atraumatic Eyes: EOMI Ears: External ears are ec2 normal. CV: Tachycardia LUNGS: no respiratory distress ABD: non-distended, soft, generally tender, no guarding, nonrigid SKIN: no evidence of rashes MSK: no evidence of trauma NEURO: moves all extremities equally Vital Signs: 15:55 BP 102 / 64; Pulse 123; Resp 16 S; Temp 98.6(O); Pulse Ox 95% on R/A; Weight 71.21 kg as6 (R); Height 5 ft. 6 in. (R); 16:59 BP 118 / 75; Pulse 100; ec2 17:35 Pulse 98; ec2 17:36 BP 122 / 66; Pulse 97; Resp 19 S; Pulse Ox 95% on R/A; kc6 18:22 BP 117 / 66; Pulse 110; Resp 18 S; Pulse Ox 93% on R/A; kc6 19:12 BP 127 / 76; Pulse 98; Resp 16; Pulse Ox 93% ; jj7 20:08 BP 125 / 76; Pulse 96; Resp 17; Temp 97.9; Pulse Ox 95% ; jj7 15:55 Body Mass Index 25.34 (71.21 kg, 167.64 cm) as6 MDM: 16:02 Patient medically screened. ec2 16:03 Data reviewed: vital signs. ED course: Patient arrives today for evaluation of ec2 abdominal pain. Examination remarkable for tachycardia. Will obtain lab work, urine studies, CT imaging, treat the patient's pain. Evaluate for bowel obstruction, enteritis, appendicitis, cholecystitis.. 16:58 ED course: EKG independently reviewed and interpreted by me, sinus tachycardia, rate ec2 111, no acute ST segment elevations, intervals nonconcerning.. 17:28 ED course: Metabolic profile shows renal dysfunction with a creatinine of 1.34 and a ec2 GFR 51. Lipase within normal ranges. . 17:35 ED course: On reassessment patient with improving hemodynamics. Pending CT imaging. ec2 Will sign patient out pending CT imaging and reassessment.. 19:52 Historians other than the Patient: Spouse/Significant Other: . Counseling: I had a kb detailed discussion with the patient and/or guardian regarding the historical points, exam findings, and any diagnostic results supporting the discharge/admit diagnosis, lab results, radiology results, the need for outpatient follow up, a family practitioner, to return to the emergency department if symptoms worsen or persist or if there are any questions or concerns that arise at home. ED course: Lactate still not resulted, called lab and was told it needed to be recollected. Pt states he is ready to go home. Discussed all results with who will call his PCP and neurologist in the morning for further eval. states pt has had this pain for weeks and nothing has been found. . 07/13 16:03 Order name: CBC with Diff; Complete Time: 17:12 ec2 07/13 16:03 Order name: CMP; Complete Time: 17:28 ec2 07/13 16:03 Order name: Lipase; Complete Time: 17:28 ec2 07/13 16:03 Order name: Urinalysis w/ reflexes; Complete Time: 19:03 ec2 07/13 16:05 Order name: Blood Culture Adult (2) ec2 07/13 16:05 Order name: Lactate w/ 2H reflex if indic.; Complete Time: 20:14 ec2 07/13 16:05 Order name: Protime (+inr); Complete Time: 17:12 ec2 07/13 16:05 Order name: Ptt, Activated; Complete Time: 17:12 ec2 07/13 16:03 Order name: CT Abd/Pelvis - IV Contrast Only; Complete Time: 17:57 ec2 07/13 17:58 Order name: US Abdomen Limited; Complete Time: 18:44 kb 07/13 16:03 Order name: IV Saline Lock; Complete Time: 16:41 ec2 07/13 16:03 Order name: Labs collected and sent; Complete Time: 16:41 ec2 07/13 16:05 Order name: Accucheck; Complete Time: 16:41 ec2 07/13 16:05 Order name: Cardiac monitoring; Complete Time: 16:41 ec2 07/13 16:05 Order name: EKG - Nurse/Tech; Complete Time: 16:41 ec2 07/13 16:05 Order name: IV Saline Lock - Large Bore; Complete Time: 16:41 ec2 07/13 16:05 Order name: O2 Per Protocol; Complete Time: 16:41 ec2 07/13 16:05 Order name: O2 Sat Monitoring; Complete Time: 16:41 ec2 07/13 16:05 Order name: Vital Signs; Complete Time: 16:41 ec2 07/13 19:32 Order name: Labs - recollect needed: lactate; Complete Time: 19:45 kb Administered Medications: 16:57 Drug: NS 0.9% IV 1000 ml IV at 1 bolus Per protocol; 1000 mL bolus Route: IV; Rate: 1 kc6 bolus; Site: right antecubital; 18:23 Follow up: Response: No adverse reaction; IV Status: Completed infusion; IV Intake: kc6 1000ml 16:57 Drug: Ondansetron IVP 4 mg IVP once; over 2 minutes Route: IVP; Site: right antecubital;kc6 18:23 Follow up: Response: No adverse reaction kc6 16:57 Drug: morphine IVP or IV 4 mg IVP once over 4 mins Route: IVP; Infused Over: 4 mins; kc6 Site: right antecubital; 18:23 Follow up: Response: No adverse reaction; Pain is decreased; RASS: Alert and Calm (0) kc6 Disposition Summary: 07/14/23 19:54 Discharge Ordered Notes: Location: Home kb Condition: Stable kb Diagnosis - Lower abdominal pain, unspecified kb Followup: kb - With: Emergency Department - When: As needed - Reason: Worsening of condition Followup: kb - With: Private Physician - When: 2 - 3 days - Reason: Recheck today's complaints, Continuance of care, Re-evaluation by your physician Discharge Instructions: - Discharge Summary Sheet kb - Chronic Pain, Adult kb - Abdominal Pain, Adult, [id number]-Dcnd kb Forms: - Medication Reconciliation Form kb - Antibiotic Education kb - Prescription Opioid Use kb - Patient Portal Instructions kb - Leadership Thank You Letter kb Signatures: Dispatcher [employer] EDYaz Rondon FNP-C INTERNET DATABASE SPECIALIST-Anthony Quinn RN RN as6 Traci Duggan RN RN kc6 Poncho Singh MD MD ec2 Corrections: (The following items were deleted from the chart) 16:05 16:05 BLOOD CULTURE*+BA.LAB.BRZ ordered. EDMS EDMS 16:05 16:05 LACTATE+C.LAB.BRZ ordered. EDIA EDMS 16:05 16:05 PROTIME (+INR)+COAG.LAB.BRZ ordered. EDMS EDMS 16:05 16:05 PTT, ACTIVATED+COAG.LAB.BRZ ordered. EDMS EDMS 16:59 16:58 ED course: EKG independently reviewed and interpreted by me, sinus tachycardia, ec2 rate 111, no acute ST segment elevations, normal nonconcerning.. ec2
[2023-07-14 20:24] VITALS: O2SAT 95
[2023-07-14 20:52] VITALS: BP 125/76; TEMP 97.9
--- NOTE | 2023-07-15 14:01 | EKG ---
Test Date: 2023-07-14 Test Time: 16:52:32 Warp Knit Operator: NOHELIA MEASUREMENT RESULTS: Intervals: Rate: 111 OH: 174 QRSD: 96 QT: 340 QTc: 462 Cylinder: P: 76 OH: 174 QRS: 11 T: 45 INTERPRETIVE STATEMENTS: Sinus tachycardia Low voltage QRS Inferior infarct, age undetermined Cannot rule out Anterior infarct, age undetermined Abnormal ECG Compared to ECG 05/29/2023 14:31:56 Low QRS voltage now present Myocardial infarct finding still present Electronically Signed On 07-15-23 13:58:30 CDT by Blane Choudhary
== END 2023-07-14 20:20 | disposition home or self-care (01) ==
LOC: ER 15:43
DX: R10.30 Lower abdominal pain, unspecified (principal); Z88.1 Allergy status to other antibiotic agents; Z88.5 Allergy status to narcotic agent; Z88.7 Allergy status to serum and vaccine
CPT/HCPCS: 87040 ×2; 85025; 36415; 85610; 83605; 85730; 81003; 83690; 80053; 74177; 76705; Q9967; J2405; J7030; 51702; 93005; 96361; 96374; 96375; 99285